=== PATIENT | female | born 1960 | race Caucasian/White ===

== ENCOUNTER 2019-07-03 00:27 | Inpatient (IN) | payer MEDICARE ==
[2019-07-03] MEDS ORDERED: ROCURONIUM 50 MG/5 ML INJ IV ONE (00:45)
[2019-07-03] MEDS ORDERED: ETOMIDATE 20 MG/10 ML INJ IV ONE (00:45)
[2019-07-03] MEDS ORDERED: SODIUM CHLORIDE 0.9% 500 ML 500 ML IV ONE (00:47)
[2019-07-03] MEDS ORDERED: MINERAL OIL/PETROLATUM, WHITE OPHTH OINT 3.5 GM OU PRN (00:53)
[2019-07-03] MEDS ORDERED: LIP THERAPY VASELINE TP PRN (00:53)
[2019-07-03] MEDS ORDERED: CEFEPIME/NS 1 GM/100 ML 1 GM/100 ML BAG IV ONE (00:53)
[2019-07-03] MEDS ORDERED: fentaNYL DRIP Premix 2,000 MCG/100 ML BAG IV SCH (01:00)
--- NOTE | 2019-07-03 01:20 | Emergency Department Report ---
HPI - General Chief Complaint: Dyspnea/Respdistress Time Seen by Provider: 07/03/19 00:35 - HPI HPI: 59-year-old female presents to the emergency department via EMS from her [facility] with the complaint of hypoxia and respiratory di stress. Patient was found to have a pulse ox in the 70s on room air. EMS placed her on a nonrebreather and the oxygen went up into the mid 80s. The patient was just recently admitted to this hospital from 06/24 - 06/30/19 and was previously here for sepsis secondary to pneumonia and UTI. She has a past medical history of seizure disorder, bipolar disorder, end-stage renal disease on hemodialysis, anemia of chronic kidney disease, CHF, hyperlipidemia. Patient is currently a poor historian secondary to her medical condition. Previous records show that the patient had been diagnosed with pneumonia at [facility] prior to this admission and therefore she was being treated for HCAP on vancomycin and cefepime. ED Past Medical Hx - Past Medical History Previous Medical History?: Yes Hx Hypertension: Yes Hx Congestive Heart Failure: Yes Hx Diabetes: Yes Hx Seizures: Yes Hx Dementia: Yes - Social History Smoking Status: Never Smoker - Medications Home Medications: Home Medications Medication Instructions Recorded Confirmed Last Taken Type Amlodipine Besylate [Norvasc] 10 mg PO DAILY 06/24/19 06/24/19 Unknown History AtorvaSTATin [Lipitor] 20 mg PO QHS 06/24/19 06/24/19 Unknown History Bumetanide 1 mg PO DAILY 06/24/19 06/24/19 Unknown History Cinacalcet HCl 30 mg PO DAILY 06/24/19 06/24/19 Unknown History Divalproex Sodium [Depakote 500 mg PO BID 06/24/19 06/24/19 Unknown History Sprinkle] Lispro Insulin [HumaLOG] 0 - 200 unit SQ ACHS 06/24/19 06/24/19 Unknown History Vit B Comp No.3/Folic/C/Biotin 1 each PO DAILY 06/24/19 06/24/19 Unknown History [Nephro-Umu Rx Tablet] carvediloL [Coreg] 25 mg PO BID 06/24/19 06/24/19 Unknown History hydrALAZINE [Apresoline TAB] 50 mg PO Q8HR 06/24/19 06/24/19 Unknown History ALBUTEROL NEB's [Proventil 0.083% 2.5 mg IH TIDRT #30 nebu 06/30/19 Unknown Rx NEBS] Lactulose [Cephulac] 20 gm PO Q8HR oral.liqd 06/30/19 Unknown Rx Sevelamer Carbonate [Renvela] 800 mg PO TIDWM tablet 06/30/19 Unknown Rx risperiDONE [RisperDAL] 0.5 mg PO BID tablet 06/30/19 Unknown Rx ED Review of Systems ROS: Stated complaint: ARNULFO Other details as noted in HPI Comment: Unobtainable due to pts medical conditions Physical Exam - Physical Exam Vital Signs: Vital Signs 07/03/19 01:04 Temperature 98.9 F Pulse Rate 79 Respiratory 22 Rate Blood Pressure 133/62 O2 Sat by Pulse 86 Oximetry Physical Exam: GENERAL: Patient is ill-appearing. HEENT: Normocephalic. Atraumatic. Patient has moist mucous membranes. EYES: Pupils equal and reactive to light bilaterally. NECK: Supple. Trachea is midline. CHEST/LUNGS: Decreased breath sounds. No dyspnea with shallow respirations. There is respiratory distress noted. HEART/CARDIOVASCULAR: Regular. There is no tachycardia. There is no murmur. ABDOMEN: Abdomen is soft, nontender. Patient has normal bowel sounds. There is no abdominal distention. SKIN:Skin is warm and dry. . NEURO: Patient appears lethargic. She is arousable but appears very weak. Nonverbal. Not following commands.. MUSCULOSKELETAL: There is no tenderness or deformity. There is no evidence of acute injury. ED Course Vital Signs 07/03/19 01:04 Temperature 98.9 F Pulse Rate 79 Respiratory 22 Rate Blood Pressure 133/62 O2 Sat by Pulse 86 Oximetry - ABG Interpretation Ph: 7.55 PCO2: 33 PO2: 65 Bicarbonate: 28 Interpretation: other (hypoxemia) - Intubation Time Out Performed: Yes Sedative: Etomidate Mg Given: 20 Mg Given: 50 Laryngoscope: other (Glidescope) Size: 3 ET Tube Size: 7.5 Tube Secured Depth (cm): 25 Tube Secured Location: lips Tube Placement Confirmation: visualized tube passing t, equal breath sounds bilat, confirmation by capnometr Intubation Complications: none ED Medical Decision Making - Lab Data Result diagrams: 07/03/19 01:00 07/03/19 01:00 - EKG Data -: EKG Interpreted by Me EKG shows normal: sinus rhythm, axis (left axis deviation), intervals, QRS complexes (left anterior fascicular block, LVH), ST-T waves Rate: normal - EKG Data When compared to previous EKG there are: no significant change Interpretation: unchanged when compared t (06/24/19) - Radiology Data Radiology results: report reviewed, image reviewed interpreted by me: The initial chest x-ray shows a white out of the left lung secondary to mainstem intubation.\ Repeat chest x-ray after the ET tube was pulled out shows some left basilar atelectasis. CT HEAD WITHOUT CONTRAST INDICATION: AMS. TECHNIQUE: All CT scans at this location are performed using CT dose reduction for ALARA by means of automated exposure control. COMPARISON: CT 06/24/2019 FINDINGS: HEMORRHAGE: None. EXTRA-AXIAL SPACES: Normal in size and morphology for the patient's age. VENTRICULAR SYSTEM: Normal in size and morphology for the patient's age. BRAIN PARENCHYMA: No acute findings. Periventricular white matter hypodensities bilaterally are stable. Thalamic and left giovanni hypodensities are stable. MIDLINE SHIFT OR HERNIATION: None. ORBITS: Normal as visualized. SOFT TISSUES OF HEAD: Normal. CALVARIUM: Normal. VISUALIZED PARANASAL SINUSES AND MASTOID AIR CELLS: Clear. ADDITIONAL FINDINGS: None. IMPRESSION: 1. No acute intracranial abnormality. - Medical Decision Making This patient presents from her half-way facility with the complaint of some shortness of breath and hypoxia. The patient had a pulse ox in the 70s upon EMS arrival. Even with a nonrebreather on the patient only had oxygen in the mid 80s. She is lethargic with shallow respirations and for this reason the patient was intubated. A CT scan of the head did not show any bleed, shift, mass, ischemia, or any other acute process. Chest x-ray did not show any signs of obvious pneumonia, pleural effusions or any other acute process. However the patient was treated empirically with vancomycin and cefepime secondary to her previous history of hospital acquired pneumonia. Patient's labs were mostly unremarkable except for her end-stage renal disease and the ABG showed some hypoxemia. The patient will be admitted to the hospital for further evaluation and treatment was accepted for admission by the hospitalist, Dr. Hanks. - Differential Diagnosis sepsis, dysrhythmia, pneumonia, CHF Critical Care Time: Yes Critical care time in (mins) excluding proc time.: 35 Critical care attestation.: If time is entered above; I have spent that time in minutes in the direct care of this critically ill patient, excluding procedure time. Critical care time was spent on this patient and doing her initial evaluation, multiple re- evaluations, ordering and interpretation of labs and imaging, empiric antibiotic treatment, discussion with the patient's daughter. This does not include the time spent doing the intubation. Critical Care Time: 35 minutes ED Disposition Clinical Impression: Acute respiratory failure with hypoxia, ESRD (end stage renal disease) on dialysis, Acute metabolic encephalopathy Disposition: OP ADMIT IP TO THIS HOSP Is pt being admited?: Yes Condition: Serious Time of Disposition: 02:52
[2019-07-03 01:21] LABS: Basophils # (Auto) 0.1 K/mm3 (0.0-0.1); Basophils % (Auto) 0.8 % (0.0-1.8); Eosinophils % (Auto) 0.1 % (0.0-4.3); Hematocrit 40.9 % (30.3-42.9); Hemoglobin 13.4 gm/dl (10.1-14.3); Lymphocytes # (Auto) 2.1 K/mm3 (1.2-5.4); Lymphocytes % (Auto) 11.7 % (13.4-35.0); Mean Corpuscular HGB Conc 33 % (30-34); Mean Corpuscular Volume 86 fl (79-97); Monocytes % (Auto) 5.3 % (0.0-7.3); Platelet Count 228 K/mm3 (140-440); Red Blood Count 4.76 M/mm3 (3.65-5.03); Red Cell Distribution Width 17.8 % (13.2-15.2)
[2019-07-03] MEDS ORDERED: VANCOMYCIN/NS 1 GM/250 ML 1 GM/250 ML BAG IV ONE (01:30)
[2019-07-03 01:31] LABS: Mucus,Urine FEW /HPF
[2019-07-03 01:32] LABS: Bilirubin,Urine NEG (Negative); Blood,Urine NEG (Negative); Color,Urine Yellow (Yellow); Urobilinogen,Urine < 2.0 mg/dL (<2.0)
[2019-07-03 01:37] LABS: Albumin 2.5 g/dL (3.9-5); Calcium 10.5 mg/dL (8.4-10.2)
--- NOTE | 2019-07-03 01:38 | XRay Report ---
CHEST 1 VIEW INDICATION: SOB. COMPARISON: 06/24/2019 FINDINGS: Support devices: Endotracheal tube tip is in the proximal right mainstem bronchus. Esophagogastric tu be is in the stomach. Heart: Stable. Lungs/Pleura: Volume loss and near diffuse opacification of the left hemithorax is likely due to left lung collapse/atelectasis. Mild streaky opacities in the right lung are likely atelectatic. No pneum othorax. IMPRESSION: 1. Endotracheal tube tip in the right mainstem bronchus with left lung collapse. Endotracheal tube sh ould be pulled back approximately 5 cm. COMMUNICATION: Time of Communication: 12:33 AM central Licensed Practitioner Receiving Report: Dr. Mabry Signer Name: Ovi Saini MD Signed: 07/03/2019 1:34 AM Workstation Name: [id number]
[2019-07-03 01:41] LABS: Protein,Urine >500 mg/dL (Negative)
[2019-07-03] MEDS ORDERED: MIDAZOLAM 2 MG/2 ML INJ IV PRN (01:50)
[2019-07-03 01:52] LABS: ABG Base Excess 6.7 mmol/L (-2.0-3.0); ABG HCO3 28.9 mmol/L (20.0-26.0); ABG Methemoglobin 0.4 % (0.0-1.5); ABG Oxygen Saturation 95.7 % (95.0-99.0); ABG PCO2 33.4 mm Hg; ABG PH 7.555 pH Units (7.350-7.450); ABG PO2 65.4 mm Hg (80.0-90.0)
[2019-07-03] MEDS ORDERED: MIDAZOLAM 100 MG in SODIUM CHLORIDE 0.9% 80 ML IV SCH (02:15)
--- NOTE | 2019-07-03 02:23 | XRay Report ---
CHEST 1 VIEW 1:46 AM INDICATION: ETT placement. COMPARISON: Earlier the same day FINDINGS: Support devices: Endotracheal tube has been pulled back and is in satisfactory position. Heart: Stable. Lungs/Pleura: Left lung collapse has almost completely resolved. Mild residual atelectatic changes ar e again seen in the right lung. No pneumothorax. IMPRESSION: 1. Resolution of left lung collapse after endotracheal tube repositioning. Signer Name: Ovi Saini MD Signed: 07/03/2019 2:19 AM Workstation Name: [email or web address]
--- NOTE | 2019-07-03 03:42 | History and Physical Report ---
History of Present Illness Date of examination: 07/03/19 Date of admission: 07/03/19 02:52 Chief complaint: " Not breathing properly" History of present illness: Patient is 59-year-old female long term facility resident in [place] with a past medical history of ESRD on HD (MWF), insulin-dependent diabetes, HTN, CHF, seizure, bipolar, depression, and toxic metabolic encephalopathy who presents to ER for evaluation. Patient history taken from daughter who was at bedside during exam. As per staff, the patient was found to have increased work of breathing and decreased responsiveness this evening. Patient was found to have a pulse oximetry in the 70s and was placed on supplemental oxygen. EMS was notified and upon arrival the patient was found to be in distress and was subsequently placed on a non-rebreather with oxygen saturations increasing to the mid 80s and transported to [facility] for further care and evaluation. Patient was found to have acute hypoxemic respiratory failure and was unable to protect her airway. Patient was intubated and placed on ventilatory support. Patient was admitted to the ICU for medical stabilization due to high risk for cardiopulmonary decompensation. Prior admission 06/24 - 06/30/19 reviewed and shows patient was previously admitted for sepsis secondary to pneumonia and UTI. Past History Past Medical History: other (As noted in HPI, Bipolar, depression, early dementia.) Past Surgical History: Other (Tubal ligation, fistula left arm) Social history: other (Resident of [place] [facility]) Medications and Allergies Allergies Allergy/AdvReac Type Severity Reaction Status Date / Time No Known Allergies Allergy Unverified 06/24/19 20:08 Home Medications Medication Instructions Recorded Confirmed Last Taken Type Amlodipine Besylate [Norvasc] 10 mg PO DAILY 06/24/19 06/24/19 Unknown History AtorvaSTATin [Lipitor] 20 mg PO QHS 06/24/19 06/24/19 Unknown History Bumetanide 1 mg PO DAILY 06/24/19 06/24/19 Unknown History Cinacalcet HCl 30 mg PO DAILY 06/24/19 06/24/19 Unknown History Divalproex Sodium [Depakote 500 mg PO BID 06/24/19 06/24/19 Unknown History Sprinkle] Lispro Insulin [HumaLOG] 0 - 200 unit SQ ACHS 06/24/19 06/24/19 Unknown History Vit B Comp No.3/Folic/C/Biotin 1 each PO DAILY 06/24/19 06/24/19 Unknown History [Nephro-Umu Rx Tablet] carvediloL [Coreg] 25 mg PO BID 06/24/19 06/24/19 Unknown History hydrALAZINE [Apresoline TAB] 50 mg PO Q8HR 06/24/19 06/24/19 Unknown History ALBUTEROL NEB's [Proventil 0.083% 2.5 mg IH TIDRT #30 nebu 06/30/19 Unknown Rx NEBS] Lactulose [Cephulac] 20 gm PO Q8HR oral.liqd 06/30/19 Unknown Rx Sevelamer Carbonate [Renvela] 800 mg PO TIDWM tablet 06/30/19 Unknown Rx risperiDONE [RisperDAL] 0.5 mg PO BID tablet 06/30/19 Unknown Rx Active Meds: Active Medications Hydrophilic Ointment (Vaseline Lip Therapy) 1 applic TP Q2HR PRN PRN Reason: Dry Lips Fentanyl Citrate (Fentanyl Drip Premix) 2,000 mcg in 100 mls @ 2.608 mls/hr IV TITR YANG; Protocol Last Admin: 07/03/19 02:25 Dose: 1 mcg/kg/hr, 2.608 mls/hr Documented by: Midazolam HCl 100 mg/ Sodium (Chloride) 100 mls @ 2 mls/hr IV TITR YANG; Protocol Last Admin: 07/03/19 02:26 Dose: 2 mg/hr, 2 mls/hr Documented by: Midazolam HCl (Versed) 2 mg IV Q10MIN PRN PRN Reason: Sedation Multi-Ingred Cream/Lotion/Oil/Oint (Artificial Tears Ophth Oint) 1 applic OU Q4HR PRN PRN Reason: Dry Eye(s) Review of Systems ROS unobtainable: due to mental status Exam - Physical Exam Narrative exam: General appearance: Present: severe distress - EENT Eyes: Present: miosis ENT: dentition normal - Neck Neck: Present: supple, normal ROM - Respiratory Respiratory effort: labored, accessory muscle use Respiratory: bilateral: diminished, - Cardiovascular Heart Sounds: Present: S1 & S2. Absent: rub, click - Extremities Extremities: pulses symmetrical, No edema Extremity abnormal: edema Peripheral Pulses: within normal limits - Abdominal General gastrointestinal: Present: soft, non-distended, normal bowel sounds genitourinary: Present: normal - Integumentary Integumentary: Present: dry, clammy, decreased turgor - Musculoskeletal Musculoskeletal: generalized weakness - Psychiatric Psychiatric: no appropriate mood/affect, no intact judgment & insight, no memory intact - Neurologic Neurologic: no gait normal - Constitutional Vitals: Temp Pulse Resp BP Pulse Ox 99.7 F H 80 18 144/67 100 07/03/19 02:46 07/03/19 02:46 07/03/19 02:45 07/03/19 02:45 07/03/19 02:45 DANIELLE score - Danielle Score Age > 65: (0) No Aspirin use within the Past 7 Days: (0) No 3 or more CAD Risk Factors: (1) Yes 2 or more Angina events in past 24 hrs: (0) No Known CAD with more than 50% Stenosis: (0) No Elevated Cardiac Markers: (1) Yes ST Deviation Greater than 0.5mm: (0) No DANIELLE Score: 2 Results - Labs CBC & Chem 7: 07/03/19 01:00 07/03/19 01:00 Labs: Laboratory Last Values WBC 17.9 K/mm3 (4.5-11.0) H 07/03/19 01:00 RBC 4.76 M/mm3 (3.65-5.03) 07/03/19 01:00 Hgb 13.4 gm/dl (10.1-14.3) 07/03/19 01:00 Hct 40.9 % (30.3-42.9) 07/03/19 01:00 MCV 86 fl (79-97) 07/03/19 01:00 MCH 28 pg (28-32) 07/03/19 01:00 MCHC 33 % (30-34) 07/03/19 01:00 RDW 17.8 % (13.2-15.2) H 07/03/19 01:00 Plt Count 228 K/mm3 (140-440) 07/03/19 01:00 Lymph % (Auto) 11.7 % (13.4-35.0) L 07/03/19 01:00 Bowman % (Auto) 5.3 % (0.0-7.3) 07/03/19 01:00 Eos % (Auto) 0.1 % (0.0-4.3) 07/03/19 01:00 Baso % (Auto) 0.8 % (0.0-1.8) 07/03/19 01:00 Lymph # 2.1 K/mm3 (1.2-5.4) 07/03/19 01:00 Bowman # 1.0 K/mm3 (0.0-0.8) H 07/03/19 01:00 Eos # 0.0 K/mm3 (0.0-0.4) 07/03/19 01:00 Baso # 0.1 K/mm3 (0.0-0.1) 07/03/19 01:00 Seg Neutrophils % 82.1 % (40.0-70.0) H 07/03/19 01:00 Seg Neutrophils # 14.7 K/mm3 (1.8-7.7) H 07/03/19 01:00 ABG pH 7.555 pH Units (7.350-7.450) H 07/03/19 01:35 ABG pCO2 33.4 mm Hg 07/03/19 01:35 ABG pO2 65.4 mm Hg (80.0-90.0) L 07/03/19 01:35 ABG HCO3 28.9 mmol/L (20.0-26.0) H 07/03/19 01:35 ABG O2 Saturation 95.7 % (95.0-99.0) 07/03/19 01:35 ABG O2 Content 18.8 (0.0-44) 07/03/19 01:35 ABG Base Excess 6.7 mmol/L (-2.0-3.0) H 07/03/19 01:35 ABG Hemoglobin 14.3 gm/dl (12.0-16.0) 07/03/19 01:35 ABG Carboxyhemoglobin 1.4 % (0.0-5.0) 07/03/19 01:35 ABG Methemoglobin 0.4 % (0.0-1.5) 07/03/19 01:35 Oxyhemoglobin 94.0 % (95.0-99.0) L 07/03/19 01:35 FiO2 100 % 07/03/19 01:35 Sodium 140 mmol/L (137-145) 07/03/19 01:00 Potassium 4.1 mmol/L (3.6-5.0) D 07/03/19 01:00 Chloride 92.9 mmol/L (98-107) L 07/03/19 01:00 Carbon Dioxide 28 mmol/L (22-30) 07/03/19 01:00 Anion Gap 23 mmol/L 07/03/19 01:00 BUN 45 mg/dL (7-17) H 07/03/19 01:00 Creatinine 5.3 mg/dL (0.7-1.2) H 07/03/19 01:00 Estimated GFR 8 ml/min 07/03/19 01:00 BUN/Creatinine Ratio 8 % 07/03/19 01:00 Glucose 229 mg/dL (65-100) H 07/03/19 01:00 Lactic Acid 1.20 mmol/L (0.7-2.0) 07/03/19 01:00 Calcium 10.5 mg/dL (8.4-10.2) H 07/03/19 01:00 Total Bilirubin 0.30 mg/dL (0.1-1.2) 07/03/19 01:00 AST 22 units/L (5-40) 07/03/19 01:00 ALT 9 units/L (7-56) 07/03/19 01:00 Alkaline Phosphatase 101 units/L (35-129) 07/03/19 01:00 Ammonia 35.0 umol/L (25-60) 07/03/19 01:58 NT-Pro-B Natriuret Pep > 72859 pg/mL (0-900) H 07/03/19 01:00 Total Protein 7.0 g/dL (6.3-8.2) 07/03/19 01:00 Albumin 2.5 g/dL (3.9-5) L 07/03/19 01:00 Albumin/Globulin Ratio 0.6 % 07/03/19 01:00 TSH 2.600 mlU/mL (0.270-4.200) 07/03/19 01:00 Urine Color Yellow (Yellow) 07/03/19 Unknown Urine Turbidity Clear (Clear) 07/03/19 Unknown Urine pH 6.0 (5.0-7.0) 07/03/19 Unknown Ur Specific [place] 1.012 (1.003-1.030) 07/03/19 Unknown Urine Protein >500 mg/dL (Negative) 07/03/19 Unknown Urine Glucose (UA) >=500 mg/dL (Negative) 07/03/19 Unknown Urine Ketones Neg mg/dL (Negative) 07/03/19 Unknown Urine Blood Neg (Negative) 07/03/19 Unknown Urine Nitrite Neg (Negative) 07/03/19 Unknown Ur Reducing Substances Not Reportable 07/03/19 Unknown Urine Bilirubin Neg (Negative) 07/03/19 Unknown Urine Ictotest Not Reportable 07/03/19 Unknown Urine Urobilinogen < 2.0 mg/dL (<2.0) 07/03/19 Unknown Ur Leukocyte Esterase Neg (Negative) 07/03/19 Unknown Urine WBC (Auto) 1.0 /HPF (0.0-6.0) 07/03/19 Unknown Urine RBC (Auto) 2.0 /HPF (0.0-6.0) 07/03/19 Unknown U Epithel Cells (Auto) < 1.0 /HPF (0-13.0) 07/03/19 Unknown Urine Mucus Few /HPF 07/03/19 Unknown - Imaging and Cardiology EKG: report reviewed Chest x-ray: report reviewed Assessment and Plan Assessment and plan: Acute hypoxic respiratory failure -Patient intubated placed on ventilatory support -Continue ventilator, pulmonary input appreciated -ABG, daily -pulse oximetry,Monitor saturations -wean vent as tolerated, -No infiltrate seen on today's chest x-ray. -Initial ABG 7.55/33/65/28 Acute encephalopathy -CT head ordered -Blood cultures pending -Neuro checks -Continue supportive care SIRS -Suspicion for Sepsis -CXR unremarkable -Leukocytosis 17.9 -Received 1 dose of IV cefepime in ED -Will continue empiric treatment - UC pending -Blood cultures pending -Will continue to workup source of infection -Follow up on labs -Continue supportive care -AMS ESRD on HD -M// -Avoid nephrotoxic agents -Renal dose all meds -Nephrology consulted Congestive heart Failure -BNP >30298 -Monitor input and output. -IV diuretics, supportive care -Cardiology consult -Continue HF meds Hypertensive urgency -BP on admission 201/94 -Hx Hypertension -Continue to monitor BP -Resume home antihypertensive meds to optimize BP -IV prn antihypertensive when necessary Insulin-dependent diabetes -POC BG monitoring -SSI coverage prn Hx Seizure -Continue anticonvulsant meds DVT PPX -On Heparin VTE prophylaxis?: Chemical Plan of care discussed with patient/family: Yes
[2019-07-03] MEDS ORDERED: DEXTROSE 50% IN WATER (25GM) 50 ML SYRINGE IV PRN (04:34)
[2019-07-03 04:44] LABS: ABG Base Excess 4.5 mmol/L (-2.0-3.0); ABG HCO3 27.9 mmol/L (20.0-26.0); ABG Methemoglobin 0.5 % (0.0-1.5); ABG Oxygen Saturation 98.9 % (95.0-99.0); ABG PCO2 37.5 mm Hg; ABG PH 7.489 pH Units (7.350-7.450); ABG PO2 149.9 mm Hg (80.0-90.0)
--- NOTE | 2019-07-03 05:00 | Cat Scan Report ---
CT HEAD WITHOUT CONTRAST INDICATION: AMS. TECHNIQUE: All CT scans at this location are performed using CT dose reduction for ALARA by means of automated e xposure control. COMPARISON: CT 06/24/2019 FINDINGS: HEMORRHAGE: None. EXTRA-AXIAL SPACES: Normal in size and morphology for the patient's age. VENTRICULAR SYSTEM: Normal in size and morphology for the patient's age. BRAIN PARENCHYMA: No acute findings. Periventricular white matter hypodensities bilaterally are stabl e. Thalamic and left giovanni hypodensities are stable. MIDLINE SHIFT OR HERNIATION: None. ORBITS: Normal as visualized. SOFT TISSUES OF HEAD: Normal. CALVARIUM: Normal. VISUALIZED PARANASAL SINUSES AND MASTOID AIR CELLS: Clear. ADDITIONAL FINDINGS: None. IMPRESSION: 1. No acute intracranial abnormality. Signer Name: Ovi Saini MD Signed: 07/03/2019 4:55 AM Workstation Name: [id number]
[2019-07-03] MEDS ORDERED: FUROSEMIDE 40 MG/4 ML INJ IV SCH (06:00)
[2019-07-03] MEDS: INSULIN LISPRO 100 UNIT/ML SUB-Q SCH ×3 (06:23→18:14)
[2019-07-03] MEDS ORDERED: VANCOMYCIN PHARMACY TO DOSE IV SCH (07:00)
--- NOTE | 2019-07-03 08:28 | Event Note ---
Date: 07/03/19 I called Patients daughter. She does not know name of [facility] but Patient goes to [facility]. Notified Dr Oconnor who states she is their Patient. Will transfer Renal care to his service
[2019-07-03] MEDS ORDERED: FAMOTIDINE 20 MG/2 ML INJ IV ONE (09:26)
[2019-07-03] MEDS ORDERED: HEPARIN 5,000 UNIT/1 ML VIAL ONE (09:26)
[2019-07-03] MEDS: FAMOTIDINE 20 MG/2 ML INJ IV SCH (09:31)
[2019-07-03] MEDS: CEFEPIME/NS 1 GM/100 ML 1 GM/100 ML BAG IV SCH (09:31)
[2019-07-03] MEDS: HEPARIN 5,000 UNIT/1 ML VIAL SUB-Q SCH ×2 (09:31→23:59)
--- NOTE | 2019-07-03 09:43 | Consultation ---
History of Present Illness Consult date: 07/03/19 Consult reason: congestive heart failure History of present illness: This is a 59-year old woman who [facility] and has multiple m edical problems including end stage renal disease on hemodialysis. Of note, patient was recently admitted to this hospital with AMS and sepsis. Patient was sent to the emergency department and admitted with hypoxic respiratory failure. She is currently intubated on the ventilator. A cardiac consultation has been requested for CHF evaluation. A chest x-ray reports no interstitial edema. 12-lead ECG is sinus rhythm, LVH with repolarization abnormality. Recent echocardiogram showed a normal left ventricular systolic function, ejection fraction 50-55%. Past History Past Medical History: other (As noted in HPI, Bipolar, depression, early dementia.) Past Surgical History: Other (Tubal ligation, fistula left arm) Social history: other (Resident of [facility]) Medications and Allergies Allergies Allergy/AdvReac Type Severity Reaction Status Date / Time No Known Allergies Allergy Verified 07/03/19 10:58 Home Medications Medication Instructions Recorded Confirmed Last Taken Type Amlodipine Besylate [Norvasc] 10 mg PO DAILY 06/24/19 06/24/19 Unknown History AtorvaSTATin [Lipitor] 20 mg PO QHS 06/24/19 06/24/19 Unknown History Bumetanide 1 mg PO DAILY 06/24/19 06/24/19 Unknown History Cinacalcet HCl 30 mg PO DAILY 06/24/19 06/24/19 Unknown History Divalproex Sodium [Depakote 500 mg PO BID 06/24/19 06/24/19 Unknown History Sprinkle] Lispro Insulin [HumaLOG] 0 - 200 unit SQ ACHS 06/24/19 06/24/19 Unknown History Vit B Comp No.3/Folic/C/Biotin 1 each PO DAILY 06/24/19 06/24/19 Unknown History [Nephro-Umu Rx Tablet] carvediloL [Coreg] 25 mg PO BID 06/24/19 06/24/19 Unknown History hydrALAZINE [Apresoline TAB] 50 mg PO Q8HR 06/24/19 06/24/19 Unknown History ALBUTEROL NEB's [Proventil 0.083% 2.5 mg IH TIDRT #30 nebu 06/30/19 Unknown Rx NEBS] Lactulose [Cephulac] 20 gm PO Q8HR oral.dewayneqd 06/30/19 Unknown Rx Sevelamer Carbonate [Renvela] 800 mg PO TIDWM tablet 06/30/19 Unknown Rx risperiDONE [RisperDAL] 0.5 mg PO BID tablet 06/30/19 Unknown Rx Active Meds: Active Medications Dextrose (D50w (25gm) Syringe) 0 ml IV Q30MIN PRN; Protocol PRN Reason: Hypoglycemia Famotidine (Pepcid) 20 mg IV DAILY [facility] Last Admin: 07/03/19 09:31 Dose: 20 mg Documented by: Furosemide (Lasix) 40 mg IV BID@0600,1800 [facility] Last Admin: 07/03/19 06:23 Dose: 40 mg Documented by: Heparin Sodium (Porcine) (Heparin) 5,000 unit SUB-Q Q12HR YANG Last Admin: 07/03/19 09:31 Dose: 5,000 unit Documented by: Hydrophilic Ointment (Vaseline Lip Therapy) 1 applic TP Q2HR PRN PRN Reason: Dry Lips Fentanyl Citrate (Fentanyl Drip Premix) 2,000 mcg in 100 mls @ 2.608 mls/hr IV TITR YANG; Protocol Last Admin: 07/03/19 02:25 Dose: 1 mcg/kg/hr, 2.608 mls/hr Documented by: Midazolam HCl 100 mg/ Sodium (Chloride) 100 mls @ 2 mls/hr IV TITR YANG; Protocol Last Admin: 07/03/19 02:26 Dose: 2 mg/hr, 2 mls/hr Documented by: Cefepime HCl (Cefepime/Ns 1 Gm/100 Ml) 1 gm in 100 mls @ 200 mls/hr IV Q24HR YANG; Protocol Last Admin: 07/03/19 09:31 Dose: 200 mls/hr Documented by: Insulin Human Lispro (Humalog) 0 unit SUB-Q Q6HR YANG; Protocol Last Admin: 07/03/19 06:23 Dose: Not Given Documented by: Midazolam HCl (Versed) 2 mg IV Q10MIN PRN PRN Reason: Sedation Multi-Ingred Cream/Lotion/Oil/Oint (Artificial Tears Ophth Oint) 1 applic OU Q4HR PRN PRN Reason: Dry Eye(s) Sodium Chloride (Sodium Chloride Flush Syringe 10 Ml) 10 ml IV BID [facility] Last Admin: 07/03/19 09:31 Dose: 10 ml Documented by: Sodium Chloride (Sodium Chloride Flush Syringe 10 Ml) 10 ml IV PRN PRN PRN Reason: LINE FLUSH Physical Examination Vital Signs Pulse Resp Pulse Ox 81 14 87 07/03/19 00:32 07/03/19 00:32 07/03/19 00:32 General appearance: other (intubated on the vent) Cardiac: Positive: Reg Rate and Rhythm Results 07/03/19 01:00 07/03/19 01:00 Cardiac Enzymes 07/03/19 Range/Units 01:00 AST 22 (5-40) units/L CBC 07/03/19 Range/Units 01:00 WBC 17.9 H (4.5-11.0) K/mm3 RBC 4.76 (3.65-5.03) M/mm3 Hgb 13.4 (10.1-14.3) gm/dl Hct 40.9 (30.3-42.9) % Plt Count 228 (140-440) K/mm3 Lymph # 2.1 (1.2-5.4) K/mm3 [place] # 1.0 H (0.0-0.8) K/mm3 Eos # 0.0 (0.0-0.4) K/mm3 Baso # 0.1 (0.0-0.1) K/mm3 Comprehensive Metabolic Panel 07/03/19 Range/Units 01:00 Sodium 140 (137-145) mmol/L Potassium 4.1 D (3.6-5.0) mmol/L Chloride 92.9 L (98-107) mmol/L Carbon Dioxide 28 (22-30) mmol/L BUN 45 H (7-17) mg/dL Creatinine 5.3 H (0.7-1.2) mg/dL Glucose 229 H (65-100) mg/dL Calcium 10.5 H (8.4-10.2) mg/dL AST 22 (5-40) units/L ALT 9 (7-56) units/L Alkaline Phosphatase 101 (35-129) units/L Total Protein 7.0 (6.3-8.2) g/dL Albumin 2.5 L (3.9-5) g/dL Assessment and Plan Hypoxic respiratory failure ESRD on HD Altered mental status Hx of chronically elevated troponin dating back to 04/2018 at [facility] MPI performed November 2018 revealed no ischemia preserved LVEF by echo 06/25/2019 Hypertension Diabetes Hx of seizure disorder
--- NOTE | 2019-07-03 11:42 | Consultation ---
History of Present Illness - Reason for Consult Consult date: 07/03/19 end stage renal disease - History of Present Illness patient is 59 year old female with ESRD on HD every MWF she was transferred from SNF for worsening AMS and shortness of breath, on my exam she was intubated and sated, no family at bedside, history obtained from chart, in the Ed was found to have acute hypoxemic respiratory failure and was unable to protect her airway. Patient was intubated and placed on ventilatory support. she was also found to have leukocytosis and was started on IV abx, renal consult was requested for HD management Past History Past Medical History: other (As noted in HPI, Bipolar, depression, early dementia.) Past Surgical History: Other (Tubal ligation, fistula left arm) Social history: other (Resident of [facility]) Medications and Allergies Allergies Allergy/AdvReac Type Severity Reaction Status Date / Time No Known Allergies Allergy Verified 07/03/19 10:58 Home Medications Medication Instructions Recorded Confirmed Last Taken Type Amlodipine Besylate [Norvasc] 10 mg PO DAILY 06/24/19 06/24/19 Unknown History AtorvaSTATin [Lipitor] 20 mg PO QHS 06/24/19 06/24/19 Unknown History Bumetanide 1 mg PO DAILY 06/24/19 06/24/19 Unknown History Cinacalcet HCl 30 mg PO DAILY 06/24/19 06/24/19 Unknown History Divalproex Sodium [Depakote 500 mg PO BID 06/24/19 06/24/19 Unknown History Sprinkle] Lispro Insulin [HumaLOG] 0 - 200 unit SQ ACHS 06/24/19 06/24/19 Unknown History Vit B Comp No.3/Folic/C/Biotin 1 each PO DAILY 06/24/19 06/24/19 Unknown History [Nephro-Umu Rx Tablet] carvediloL [Coreg] 25 mg PO BID 06/24/19 06/24/19 Unknown History hydrALAZINE [Apresoline TAB] 50 mg PO Q8HR 06/24/19 06/24/19 Unknown History ALBUTEROL NEB's [Proventil 0.083% 2.5 mg IH TIDRT #30 nebu 06/30/19 Unknown Rx NEBS] Lactulose [Cephulac] 20 gm PO Q8HR oral.liqd 06/30/19 Unknown Rx Sevelamer Carbonate [Renvela] 800 mg PO TIDWM tablet 06/30/19 Unknown Rx risperiDONE [RisperDAL] 0.5 mg PO BID tablet 06/30/19 Unknown Rx Active Meds: Active Medications Dextrose (D50w (25gm) Syringe) 0 ml IV Q30MIN PRN; Protocol PRN Reason: Hypoglycemia Famotidine (Pepcid) 20 mg IV DAILY [facility] Last Admin: 07/03/19 09:31 Dose: 20 mg Documented by: Furosemide (Lasix) 40 mg IV BID@0600,1800 YANG Last Admin: 07/03/19 06:23 Dose: 40 mg Documented by: Heparin Sodium (Porcine) (Heparin) 5,000 unit SUB-Q Q12HR YANG Last Admin: 07/03/19 09:31 Dose: 5,000 unit Documented by: Hydrophilic Ointment (Vaseline Lip Therapy) 1 applic TP Q2HR PRN PRN Reason: Dry Lips Fentanyl Citrate (Fentanyl Drip Premix) 2,000 mcg in 100 mls @ 2.608 mls/hr IV TITR YANG; Protocol Last Admin: 07/03/19 02:25 Dose: 1 mcg/kg/hr, 2.608 mls/hr Documented by: Midazolam HCl 100 mg/ Sodium (Chloride) 100 mls @ 2 mls/hr IV TITR YANG; Protocol Last Admin: 07/03/19 02:26 Dose: 2 mg/hr, 2 mls/hr Documented by: Cefepime HCl (Cefepime/Ns 1 Gm/100 Ml) 1 gm in 100 mls @ 200 mls/hr IV Q24HR YANG; Protocol Last Admin: 07/03/19 09:31 Dose: 200 mls/hr Documented by: Insulin Human Lispro (Humalog) 0 unit SUB-Q Q6HR YANG; Protocol Last Admin: 07/03/19 06:23 Dose: Not Given Documented by: Midazolam HCl (Versed) 2 mg IV Q10MIN PRN PRN Reason: Sedation Multi-Ingred Cream/Lotion/Oil/Oint (Artificial Tears Ophth Oint) 1 applic OU Q4HR PRN PRN Reason: Dry Eye(s) Sodium Chloride (Sodium Chloride Flush Syringe 10 Ml) 10 ml IV BID [facility] Last Admin: 07/03/19 09:31 Dose: 10 ml Documented by: Sodium Chloride (Sodium Chloride Flush Syringe 10 Ml) 10 ml IV PRN PRN PRN Reason: LINE FLUSH Review of Systems ROS unobtainable: due to endotracheal tube Exam - Vital Signs Vital signs: Vital Signs Pulse Resp Pulse Ox 81 14 87 07/03/19 00:32 07/03/19 00:32 07/03/19 00:32 - General Appearance General appearance: well-developed, sedated on ventilator, intubated EENT: ATNC, PERRL, mucous membranes dry Neck: Present: neck supple Respiratory: Decreased Breath Sounds Heart: regular, tachycardia Gastrointestinal: Present: normoactive bowel sounds. Absent: tenderness, distended Neurologic: other (sedated) Musculoskeletal: Present: other (trace pitting edema in BLE) Psychiatric: other (intubated) Results - Lab Results 07/03/19 01:00 07/03/19 01:00 Most recent lab results ABG pH 7.489 pH Units (7.350-7.450) H 07/03/19 04:30 ABG pCO2 37.5 mm Hg 07/03/19 04:30 ABG pO2 149.9 mm Hg (80.0-90.0) H 07/03/19 04:30 ABG HCO3 27.9 mmol/L (20.0-26.0) H 07/03/19 04:30 ABG O2 Saturation 98.9 % (95.0-99.0) 07/03/19 04:30 Calcium 10.5 mg/dL (8.4-10.2) H 07/03/19 01:00 Assessment and Plan acute hypxic respiratory failure on mehcanical ventilation metabolic encephalopathy ESRD on HD HTN severe sepsis CHF - HD ordered today for clearance and volume removal - HD ordered again for tomorrow - will assess dialysis needs daily - strict I&O - daily weight - renally dose meds - renal diet Keith Monroy MD [phone]
[2019-07-03] MEDS ORDERED: INSULIN LISPRO 100 UNIT/ML SUB-Q ONE ×2 (12:10→18:19)
--- NOTE | 2019-07-03 12:37 | Consultation ---
History of Present Illness Consult date: 07/03/19 Requesting physician: TAVO GUTIERRES History of present illness: Patient is 59-year-old female residential facility resident in [place] with a past medical history of ESRD on HD (MWF), insulin-dependent diabetes, HTN, CHF, seizure, bipolar, depression, and toxic metabolic encephalopathy who presents to ER for evaluation. Patient history taken from daughter who was at bedside during exam. As per staff, the patient was found to have increased work of breathing and decreased responsiveness this evening. Patient was found to have a pulse oximetry in the 70s and was placed on supplemental oxygen. EMS was notified and upon arrival the patient was found to be in distress and was subsequently placed on a non-rebreather with oxygen saturations increasing to the mid 80s and transported to [facility] for further care and evaluation. Patient was found to have acute hypoxemic respiratory failure and was unable to protect her airway. Patient was intubated and placed on ventilatory support. Patient was admitted to the ICU for medical stabilization due to high risk for cardiopulmonary decompensation. Prior admission 06/24 - 06/30/19 reviewed and shows patient was previously admitted for sepsis secondary to pneumonia and UTI. I have been consulted for critical care management. Thank you for consult Patient seen and examined. Vitals, labs, medications, chart and imaging reviewed. Currently unresponsive, about to have HD initiated Past History Past Medical History: other (As noted in HPI, Bipolar, depression, early dementia.) Past Surgical History: Other (Tubal ligation, fistula left arm) Social history: other (Resident of [facility]) Medications and Allergies Allergies Allergy/AdvReac Type Severity Reaction Status Date / Time No Known Allergies Allergy Verified 07/03/19 10:58 Home Medications Medication Instructions Recorded Confirmed Last Taken Type Amlodipine Besylate [Norvasc] 10 mg PO DAILY 06/24/19 07/04/19 Unknown History AtorvaSTATin [Lipitor] 20 mg PO QHS 06/24/19 07/04/19 Unknown History Bumetanide 1 mg PO DAILY 06/24/19 07/04/19 Unknown History Cinacalcet HCl 30 mg PO DAILY 06/24/19 07/04/19 Unknown History Divalproex Sodium [Depakote 500 mg PO BID 06/24/19 07/04/19 Unknown History Sprinkle] Lispro Insulin [HumaLOG] 0 - 200 unit SQ ACHS 06/24/19 07/04/19 Unknown History Vit B Comp No.3/Folic/C/Biotin 1 each PO DAILY 06/24/19 07/04/19 Unknown History [Nephro-Umu Rx Tablet] carvediloL [Coreg] 25 mg PO BID 06/24/19 07/04/19 Unknown History hydrALAZINE [Apresoline TAB] 50 mg PO Q8HR 06/24/19 07/04/19 Unknown History ALBUTEROL NEB's [Proventil 0.083% 2.5 mg IH TIDRT #30 nebu 06/30/19 07/04/19 Unknown Rx NEBS] Lactulose [Cephulac] 20 gm PO Q8HR oral.liqd 06/30/19 07/04/19 Unknown Rx Sevelamer Carbonate [Renvela] 800 mg PO TIDWM tablet 06/30/19 07/04/19 Unknown Rx risperiDONE [RisperDAL] 0.5 mg PO BID tablet 06/30/19 07/04/19 Unknown Rx Active Meds: Active Medications Dextrose (D50w (25gm) Syringe) 0 ml IV Q30MIN PRN; Protocol PRN Reason: Hypoglycemia Famotidine (Pepcid) 20 mg IV DAILY [facility] Last Admin: 07/03/19 09:31 Dose: 20 mg Documented by: Furosemide (Lasix) 40 mg IV BID@0600,1800 [facility] Last Admin: 07/03/19 06:23 Dose: 40 mg Documented by: Heparin Sodium (Porcine) (Heparin) 5,000 unit SUB-Q Q12HR YANG Last Admin: 07/03/19 09:31 Dose: 5,000 unit Documented by: Hydrophilic Ointment (Vaseline Lip Therapy) 1 applic TP Q2HR PRN PRN Reason: Dry Lips Fentanyl Citrate (Fentanyl Drip Premix) 2,000 mcg in 100 mls @ 2.608 mls/hr IV TITR YANG; Protocol Last Admin: 07/03/19 02:25 Dose: 1 mcg/kg/hr, 2.608 mls/hr Documented by: Midazolam HCl 100 mg/ Sodium (Chloride) 100 mls @ 2 mls/hr IV TITR YANG; Protocol Last Admin: 07/03/19 02:26 Dose: 2 mg/hr, 2 mls/hr Documented by: Cefepime HCl (Cefepime/Ns 1 Gm/100 Ml) 1 gm in 100 mls @ 200 mls/hr IV Q24HR [facility]; Protocol Last Admin: 07/03/19 09:31 Dose: 200 mls/hr Documented by: Insulin Human Lispro (Humalog) 0 unit SUB-Q Q6HR [facility]; Protocol Last Admin: 07/03/19 12:36 Dose: 4 unit Documented by: Midazolam HCl (Versed) 2 mg IV Q10MIN PRN PRN Reason: Sedation Multi-Ingred Cream/Lotion/Oil/Oint (Artificial Tears Ophth Oint) 1 applic OU Q4HR PRN PRN Reason: Dry Eye(s) Sodium Chloride (Sodium Chloride Flush Syringe 10 Ml) 10 ml IV BID [facility] Last Admin: 07/03/19 09:31 Dose: 10 ml Documented by: Sodium Chloride (Sodium Chloride Flush Syringe 10 Ml) 10 ml IV PRN PRN PRN Reason: LINE FLUSH Review of Systems ROS unobtainable: due to endotracheal tube, due to mental status Physical Examination Vital signs: Vital Signs Pulse Resp Pulse Ox 81 14 87 07/03/19 00:32 07/03/19 00:32 07/03/19 00:32 Vitals reviewed. Constitutional: not in any discomfort, other (middle aged thin female, normocephalic riding set rate on MVS, no patient-ventilator dys-synchrony) Eyes: non-icteric ENT: oropharynx dry, other (ETT 23 cm JORY) Neck: supple, no lymphadenopathy, no JVD Effort: mildly labored Ascultation: Bilateral: diminished breath sounds, rhonchi Percussion: Bilateral: not dull Cardiovascular: regular rate and rhythm Gastrointestinal: normoactive bowel sounds, soft, non-tender, non-distended Integumentary: normal Extremities: no cyanosis, no edema, pink and warm, pulses normal Neurologic: unable to assess Psychiatric: other (unable to assess re: AMS) Results - Laboratory Findings CBC and BMP: 07/07/19 05:38 07/07/19 05:38 ABG ABG pH 7.489 pH Units (7.350-7.450) H 07/03/19 04:30 ABG pCO2 37.5 mm Hg 07/03/19 04:30 ABG pO2 149.9 mm Hg (80.0-90.0) H 07/03/19 04:30 ABG O2 Saturation 98.9 % (95.0-99.0) 07/03/19 04:30 Abnormal lab findings: Abnormal Labs 07/03/19 07/03/19 07/03/19 01:00 01:00 01:00 WBC 17.9 H RDW 17.8 H Lymph % (Auto) 11.7 L [place] # 1.0 H Seg Neutrophils % 82.1 H Seg Neutrophils # 14.7 H ABG pH ABG pO2 ABG HCO3 ABG Base Excess Oxyhemoglobin Chloride 92.9 L BUN 45 H Creatinine 5.3 H Glucose 229 H POC Glucose Hemoglobin A1c Calcium 10.5 H NT-Pro-B Natriuret Pep > 28085 H Albumin 2.5 L 07/03/19 07/03/19 07/03/19 01:00 01:35 04:30 WBC RDW Lymph % (Auto) [place] # Seg Neutrophils % Seg Neutrophils # ABG pH 7.555 H 7.489 H ABG pO2 65.4 L 149.9 H ABG HCO3 28.9 H 27.9 H ABG Base Excess 6.7 H 4.5 H Oxyhemoglobin 94.0 L Chloride BUN Creatinine Glucose POC Glucose Hemoglobin A1c 7.0 H Calcium NT-Pro-B Natriuret Pep Albumin 07/03/19 12:10 WBC RDW Lymph % (Auto) [place] # Seg Neutrophils % Seg Neutrophils # ABG pH ABG pO2 ABG HCO3 ABG Base Excess Oxyhemoglobin Chloride BUN Creatinine Glucose POC Glucose 246 H Hemoglobin A1c Calcium NT-Pro-B Natriuret Pep Albumin Assessment and Plan Acute hypoxemic respiratory failure on MVS Acute toxic metabolic encephalopathy Severe Sepsis ESRD on HD Congestive heart Failure Accelerated Hypertension H/O Seizure - VAP bundle addressed (aspiration precautions, HOB>40 degrees) -Lung protective strategies -wean FiO2 for O2 sats >90% - continue bronchodilators with pulmonary hygiene per RT - ABG reviewed and addressed - Daily SAT's and SBT assessment as tolerated - confirm OGT placement and initiate enteral nutrition -RD consult for tube feeding recommendations - HD/UF per nephrology for toxin and volume clearance - Empiric antibiotics therapies (de-escalate based on cultures and clinical condition) - VTE prophylaxis with heparin SQ - stress ulcer prophylaxis with Famotidine - accuchecks with glycemic control for SSI (While critically ill target blood glucose of 140-180 mg/dL; avoid hypoglycemia) - mobility protocols and off loading for pressure ulcer prevention - Monitor hemodynamics closely - Fluid restrictive strategies as tolerated by hemodynamics and by her renal function - continue to avoid nephrotoxins, dose all medications for CrCL and GFR - Monitor electrolyte profile closely and replete as indicated - Chronic home medications, resume as clinically indicated - All other care per attending / other consultants CONDITION: CRITICAL PROGNOSIS: GUARDED CODE STATUS: FULL CODE The high probability of a clinically significant, sudden or life-threatening deterioration of the [respiratory, cardiovascular, neurology, renal] system(s) required my full and direct attention, intervention and personal management. The aggregate critical care time was [45] minutes without overlap. Time includes spent on; [x] Data Review and interpretation [x] Patient assessment and monitoring of vital signs [x] Documentation [x] Medication orders and management
--- NOTE | 2019-07-03 13:38 | Progress Note ---
Assessment and Plan Assessment and plan: Acute hypoxic respiratory failure -Patient intubated placed on ventilatory support -Continue ventilator, pulmonary input appreciated -ABG, daily -pulse oximetry, Monitor saturations -wean vent as tolerated, Toxic metabolic encephalopathy -Neuro checks -Continue supportive care Sepsis -CXR unremarkable -Leukocytosis present -Continue antibiotics - UC pending -Blood cultures pending ESRD on HD -M/W/F -Avoid nephrotoxic agents -Renal dose all meds -Nephrology following Congestive heart Failure -BNP >59002 -Monitor input and output. -Cardiology following and reports no evidence of volume overload Accelerated Hypertension -Continue to monitor BP -Cont. home antihypertensive meds Insulin-dependent diabetes -POC BG monitoring -SSI coverage prn Hx Seizure -Continue anticonvulsant meds DVT PPX -On Heparin History Interval history: No new issues Hospitalist Physical - Constitutional Vitals: Temp Pulse Resp BP Pulse Ox 99.7 F H 80 16 131/67 100 07/03/19 02:46 07/03/19 12:50 07/03/19 10:58 07/03/19 12:50 07/03/19 12:50 General appearance: Present: other (intubated on the vent) - EENT Eyes: Present: PERRL, EOM intact ENT: hearing intact, clear oral mucosa, dentition normal - Neck Neck: Present: supple, normal ROM - Respiratory Respiratory effort: normal Respiratory: bilateral: CTA - Cardiovascular Rhythm: regular Heart Sounds: Present: S1 & S2. Absent: gallop, rub - Extremities Extremities: no ischemia, No edema, Full ROM - Abdominal General gastrointestinal: soft, non-tender, non-distended, normal bowel sounds - Integumentary Integumentary: Present: clear, warm, dry - Neurologic Neurologic: CNII-XII intact, moves all extremities DANIELLE score - Danielle Score Age > 65: (0) No Aspirin use within the Past 7 Days: (0) No 3 or more CAD Risk Factors: (1) Yes 2 or more Angina events in past 24 hrs: (0) No Known CAD with more than 50% Stenosis: (0) No Elevated Cardiac Markers: (1) Yes ST Deviation Greater than 0.5mm: (0) No DANIELLE Score: 2 Results - Labs CBC & Chem 7: 07/03/19 01:00 07/03/19 01:00 Labs: Laboratory Last Values WBC 17.9 K/mm3 (4.5-11.0) H 07/03/19 01:00 RBC 4.76 M/mm3 (3.65-5.03) 07/03/19 01:00 Hgb 13.4 gm/dl (10.1-14.3) 07/03/19 01:00 Hct 40.9 % (30.3-42.9) 07/03/19 01:00 MCV 86 fl (79-97) 07/03/19 01:00 MCH 28 pg (28-32) 07/03/19 01:00 MCHC 33 % (30-34) 07/03/19 01:00 RDW 17.8 % (13.2-15.2) H 07/03/19 01:00 Plt Count 228 K/mm3 (140-440) 07/03/19 01:00 Lymph % (Auto) 11.7 % (13.4-35.0) L 07/03/19 01:00 [place] % (Auto) 5.3 % (0.0-7.3) 07/03/19 01:00 Eos % (Auto) 0.1 % (0.0-4.3) 07/03/19 01:00 Baso % (Auto) 0.8 % (0.0-1.8) 07/03/19 01:00 Lymph # 2.1 K/mm3 (1.2-5.4) 07/03/19 01:00 [place] # 1.0 K/mm3 (0.0-0.8) H 07/03/19 01:00 Eos # 0.0 K/mm3 (0.0-0.4) 07/03/19 01:00 Baso # 0.1 K/mm3 (0.0-0.1) 07/03/19 01:00 Seg Neutrophils % 82.1 % (40.0-70.0) H 07/03/19 01:00 Seg Neutrophils # 14.7 K/mm3 (1.8-7.7) H 07/03/19 01:00 ABG pH 7.489 pH Units (7.350-7.450) H 07/03/19 04:30 ABG pCO2 37.5 mm Hg 07/03/19 04:30 ABG pO2 149.9 mm Hg (80.0-90.0) H 07/03/19 04:30 ABG HCO3 27.9 mmol/L (20.0-26.0) H 07/03/19 04:30 ABG O2 Saturation 98.9 % (95.0-99.0) 07/03/19 04:30 ABG O2 Content 20.7 (0.0-44) 07/03/19 04:30 ABG Base Excess 4.5 mmol/L (-2.0-3.0) H 07/03/19 04:30 ABG Hemoglobin 15.0 gm/dl (12.0-16.0) 07/03/19 04:30 ABG Carboxyhemoglobin 1.3 % (0.0-5.0) 07/03/19 04:30 ABG Methemoglobin 0.5 % (0.0-1.5) 07/03/19 04:30 Oxyhemoglobin 97.1 % (95.0-99.0) 07/03/19 04:30 FiO2 60 % 07/03/19 04:30 Sodium 140 mmol/L (137-145) 07/03/19 01:00 Potassium 4.1 mmol/L (3.6-5.0) D 07/03/19 01:00 Chloride 92.9 mmol/L (98-107) L 07/03/19 01:00 Carbon Dioxide 28 mmol/L (22-30) 07/03/19 01:00 Anion Gap 23 mmol/L 07/03/19 01:00 BUN 45 mg/dL (7-17) H 07/03/19 01:00 Creatinine 5.3 mg/dL (0.7-1.2) H 07/03/19 01:00 Estimated GFR 8 ml/min 07/03/19 01:00 BUN/Creatinine Ratio 8 % 07/03/19 01:00 Glucose 229 mg/dL (65-100) H 07/03/19 01:00 POC Glucose 246 (70-105) H 07/03/19 12:10 Hemoglobin A1c 7.0 % (4-6) H 07/03/19 01:00 Lactic Acid 1.20 mmol/L (0.7-2.0) 07/03/19 04:13 Calcium 10.5 mg/dL (8.4-10.2) H 07/03/19 01:00 Total Bilirubin 0.30 mg/dL (0.1-1.2) 07/03/19 01:00 AST 22 units/L (5-40) 07/03/19 01:00 ALT 9 units/L (7-56) 07/03/19 01:00 Alkaline Phosphatase 101 units/L (35-129) 07/03/19 01:00 Ammonia 35.0 umol/L (25-60) 07/03/19 01:58 NT-Pro-B Natriuret Pep > 11975 pg/mL (0-900) H 07/03/19 01:00 Total Protein 7.0 g/dL (6.3-8.2) 07/03/19 01:00 Albumin 2.5 g/dL (3.9-5) L 07/03/19 01:00 Albumin/Globulin Ratio 0.6 % 07/03/19 01:00 TSH 2.600 mlU/mL (0.270-4.200) 07/03/19 01:00 Urine Color Yellow (Yellow) 07/03/19 Unknown Urine Turbidity Clear (Clear) 07/03/19 Unknown Urine pH 6.0 (5.0-7.0) 07/03/19 Unknown Ur Specific [place] 1.012 (1.003-1.030) 07/03/19 Unknown Urine Protein >500 mg/dL (Negative) 07/03/19 Unknown Urine Glucose (UA) >=500 mg/dL (Negative) 07/03/19 Unknown Urine Ketones Neg mg/dL (Negative) 07/03/19 Unknown Urine Blood Neg (Negative) 07/03/19 Unknown Urine Nitrite Neg (Negative) 07/03/19 Unknown Ur Reducing Substances Not Reportable 07/03/19 Unknown Urine Bilirubin Neg (Negative) 07/03/19 Unknown Urine Ictotest Not Reportable 07/03/19 Unknown Urine Urobilinogen < 2.0 mg/dL (<2.0) 07/03/19 Unknown Ur Leukocyte Esterase Neg (Negative) 07/03/19 Unknown Urine WBC (Auto) 1.0 /HPF (0.0-6.0) 07/03/19 Unknown Urine RBC (Auto) 2.0 /HPF (0.0-6.0) 07/03/19 Unknown U Epithel Cells (Auto) < 1.0 /HPF (0-13.0) 07/03/19 Unknown Urine Mucus Few /HPF 07/03/19 Unknown Active Medications - Current Medications Current Medications: Generic Name Dose Route Start Last Admin Trade Name Freq PRN Reason Stop Dose Admin Dextrose 0 ml 07/03/19 04:34 D50w (25gm) Syringe IV Q30MIN PRN Hypoglycemia Protocol Famotidine 20 mg 07/03/19 10:00 07/03/19 09:31 Pepcid IV 20 mg DAILY YANG Administration Heparin Sodium (Porcine) 5,000 unit 07/03/19 10:00 07/03/19 09:31 Heparin SUB-Q 5,000 unit Q12HR YANG Administration Hydrophilic Ointment 1 applic 07/03/19 00:53 Vaseline Lip Therapy TP Q2HR PRN Dry Lips Fentanyl Citrate 2,000 mcg in 100 mls @ 2.608 mls/hr 07/03/19 01:00 07/03/19 02:25 Fentanyl Drip Premix IV 1 mcg/kg/hr TITR YANG 2.608 mls/hr Administration Protocol 1 MCG/KG/HR Midazolam HCl 100 mg/ Sodium 100 mls @ 2 mls/hr 07/03/19 02:15 07/03/19 02:26 Chloride IV 2 mg/hr TITR YANG 2 mls/hr Administration Protocol 2 MG/HR Cefepime HCl 1 gm in 100 mls @ 200 mls/hr 07/03/19 10:00 07/03/19 09:31 Cefepime/Ns 1 Gm/100 Ml IV 200 mls/hr Q24HR YANG Administration Protocol Insulin Human Lispro 0 unit 07/03/19 06:00 07/03/19 12:36 Humalog SUB-Q 4 unit Q6HR YANG Administration Protocol Midazolam HCl 2 mg 07/03/19 01:50 Versed IV Q10MIN PRN Sedation Multi-Ingred Cream/Lotion/Oil/Oint 1 applic 07/03/19 00:53 Artificial Tears Ophth Oint OU Q4HR PRN Dry Eye(s) Sodium Chloride 10 ml 07/03/19 10:00 07/03/19 09:31 Sodium Chloride Flush Syringe 10 Ml IV 10 ml BID YANG Administration Sodium Chloride 10 ml 07/03/19 04:34 Sodium Chloride Flush Syringe 10 Ml IV PRN PRN LINE FLUSH
[2019-07-03] MEDS ORDERED: fentaNYL DRIP Premix 2,000 MCG/100 ML BAG IV ONE (16:15)
[2019-07-03] MEDS ORDERED: ACETAMINOPHEN 650 MG RECT SUPP PR ONE (20:30)
[2019-07-04] MEDS: INSULIN LISPRO 100 UNIT/ML SUB-Q SCH ×4 (00:01→18:15)
--- NOTE | 2019-07-04 02:17 | XRay Report ---
CHEST 1 VIEW INDICATION / CLINICAL INFORMATION: follow up respiratory failure. COMPARISON: 07/03/2019 FINDINGS: SUPPORT DEVICES: Endotracheal tube and nasogastric tube appear unchanged HEART / MEDIASTINUM: Unchanged LUNGS / PLEURA: There is slight improvement in atelectatic changes in both lungs.. No pneumothorax. ADDITIONAL FINDINGS: No significant additional findings. IMPRESSION: 1. Slight improvement in atelectasis in the interval. Signer Name: Salazar Torres MD Signed: 07/04/2019 2:12 AM Workstation Name: [email or web address]
[2019-07-04 04:41] LABS: ABG Base Excess 4.7 mmol/L (-2.0-3.0); ABG HCO3 28.1 mmol/L (20.0-26.0); ABG Methemoglobin 0.4 % (0.0-1.5); ABG Oxygen Saturation 95.9 % (95.0-99.0); ABG PCO2 37.1 mm Hg; ABG PH 7.496 pH Units (7.350-7.450)
[2019-07-04 05:35] LABS: Basophils # (Auto) 0.1 K/mm3 (0.0-0.1); Basophils % (Auto) 0.3 % (0.0-1.8); Eosinophils # (Auto) 0.1 K/mm3 (0.0-0.4); Eosinophils % (Auto) 0.7 % (0.0-4.3); Hematocrit 37.3 % (30.3-42.9); Hemoglobin 12.2 gm/dl (10.1-14.3); Lymphocytes # (Auto) 1.5 K/mm3 (1.2-5.4); Lymphocytes % (Auto) 8.7 % (13.4-35.0); Mean Corpuscular HGB Conc 33 % (30-34); Mean Corpuscular Volume 87 fl (79-97); Monocytes # (Auto) 0.9 K/mm3 (0.0-0.8); Monocytes % (Auto) 5.2 % (0.0-7.3); Platelet Count 246 K/mm3 (140-440); Red Blood Count 4.28 M/mm3 (3.65-5.03)
[2019-07-04] MEDS ORDERED: ACETAMINOPHEN 650 MG RECT SUPP PR ONE ×2 (06:58→08:42)
[2019-07-04] MEDS ORDERED: FAMOTIDINE 20 MG/2 ML INJ IV ONE (08:46)
[2019-07-04] MEDS ORDERED: HEPARIN 5,000 UNIT/1 ML VIAL ONE (08:46)
[2019-07-04] MEDS: HEPARIN 5,000 UNIT/1 ML VIAL SUB-Q SCH ×2 (09:45→22:20)
[2019-07-04] MEDS: CEFEPIME/NS 1 GM/100 ML 1 GM/100 ML BAG IV SCH (09:45)
[2019-07-04] MEDS: FAMOTIDINE 20 MG/2 ML INJ IV SCH (09:45)
[2019-07-04] MEDS ORDERED: ALBUMIN HUMAN 25% (25 GM/100 ML) INJ IV PRN (12:37)
--- NOTE | 2019-07-04 12:39 | Progress Note ---
Assessment and Plan Assessment and plan: Acute hypoxic respiratory failure -Continue mechanical ventilation per pulmonary. -pulse oximetry, Monitor saturations -wean vent as tolerated Toxic metabolic encephalopathy -Neuro checks -Continue to treat underlying causes. Sepsis -CXR unremarkable -Leukocytosis present -Continue antibiotics -Blood cultures negative x24 hours. ESRD on HD -M/W/F -Avoid nephrotoxic agents -Renal dose all meds -Nephrology following Congestive heart Failure -BNP >46315 -Monitor input and output. -Cardiology following and reports no evidence of volume overload Accelerated Hypertension -Continue to monitor BP -Patient actually hypotensive at present. Insulin-dependent diabetes -POC BG monitoring -SSI coverage prn Hx Seizure -Continue anticonvulsant meds DVT PPX -On Heparin History Interval history: Patient remains orally intubated currently undergoing hemodialysis. Hospitalist Physical - Constitutional Vitals: Temp Pulse Resp BP Pulse Ox 98.7 F 72 18 100/56 100 07/04/19 10:30 07/04/19 12:30 07/04/19 10:30 07/04/19 12:30 07/04/19 11:38 General appearance: Present: other (intubated on the vent) - EENT Eyes: Present: PERRL, EOM intact ENT: hearing intact, clear oral mucosa, dentition normal - Neck Neck: Present: supple, normal ROM - Respiratory Respiratory effort: normal Respiratory: bilateral: CTA - Cardiovascular Rhythm: regular Heart Sounds: Present: S1 & S2. Absent: gallop, rub - Extremities Extremities: no ischemia, No edema, Full ROM - Abdominal General gastrointestinal: soft, non-tender, non-distended, normal bowel sounds - Integumentary Integumentary: Present: clear, warm, dry - Neurologic Neurologic: CNII-XII intact, moves all extremities DANIELLE score - Danielle Score Age > 65: (0) No Aspirin use within the Past 7 Days: (0) No 3 or more CAD Risk Factors: (1) Yes 2 or more Angina events in past 24 hrs: (0) No Known CAD with more than 50% Stenosis: (0) No Elevated Cardiac Markers: (1) Yes ST Deviation Greater than 0.5mm: (0) No DANIELLE Score: 2 Results - Labs CBC & Chem 7: 07/04/19 04:56 07/04/19 04:56 Labs: Laboratory Last Values WBC 17.3 K/mm3 (4.5-11.0) H 07/04/19 04:56 RBC 4.28 M/mm3 (3.65-5.03) 07/04/19 04:56 Hgb 12.2 gm/dl (10.1-14.3) 07/04/19 04:56 Hct 37.3 % (30.3-42.9) 07/04/19 04:56 MCV 87 fl (79-97) 07/04/19 04:56 MCH 28 pg (28-32) 07/04/19 04:56 MCHC 33 % (30-34) 07/04/19 04:56 RDW 18.0 % (13.2-15.2) H 07/04/19 04:56 Plt Count 246 K/mm3 (140-440) 07/04/19 04:56 Lymph % (Auto) 8.7 % (13.4-35.0) L 07/04/19 04:56 [place] % (Auto) 5.2 % (0.0-7.3) 07/04/19 04:56 Eos % (Auto) 0.7 % (0.0-4.3) 07/04/19 04:56 Baso % (Auto) 0.3 % (0.0-1.8) 07/04/19 04:56 Lymph # 1.5 K/mm3 (1.2-5.4) 07/04/19 04:56 [place] # 0.9 K/mm3 (0.0-0.8) H 07/04/19 04:56 Eos # 0.1 K/mm3 (0.0-0.4) 07/04/19 04:56 Baso # 0.1 K/mm3 (0.0-0.1) 07/04/19 04:56 Seg Neutrophils % 85.1 % (40.0-70.0) H 07/04/19 04:56 Seg Neutrophils # 14.8 K/mm3 (1.8-7.7) H 07/04/19 04:56 ABG pH 7.496 pH Units (7.350-7.450) H 07/04/19 04:24 ABG pCO2 37.1 mm Hg 07/04/19 04:24 ABG pO2 74.0 mm Hg (80.0-90.0) L 07/04/19 04:24 ABG HCO3 28.1 mmol/L (20.0-26.0) H 07/04/19 04:24 ABG O2 Saturation 95.9 % (95.0-99.0) 07/04/19 04:24 ABG O2 Content 16.7 (0.0-44) 07/04/19 04:24 ABG Base Excess 4.7 mmol/L (-2.0-3.0) H 07/04/19 04:24 ABG Hemoglobin 12.6 gm/dl (12.0-16.0) 07/04/19 04:24 ABG Carboxyhemoglobin 1.7 % (0.0-5.0) 07/04/19 04:24 ABG Methemoglobin 0.4 % (0.0-1.5) 07/04/19 04:24 Oxyhemoglobin 93.9 % (95.0-99.0) L 07/04/19 04:24 FiO2 30 % 07/04/19 04:24 Sodium 140 mmol/L (137-145) 07/04/19 04:56 Potassium 4.1 mmol/L (3.6-5.0) 07/04/19 04:56 Chloride 95.5 mmol/L (98-107) L 07/04/19 04:56 Carbon Dioxide 25 mmol/L (22-30) 07/04/19 04:56 Anion Gap 24 mmol/L 07/04/19 04:56 BUN 26 mg/dL (7-17) H 07/04/19 04:56 Creatinine 3.4 mg/dL (0.7-1.2) H 07/04/19 04:56 Estimated GFR 14 ml/min 07/04/19 04:56 BUN/Creatinine Ratio 8 % 07/04/19 04:56 Glucose 145 mg/dL (65-100) H 07/04/19 04:56 POC Glucose 162 (70-105) H 07/04/19 07:04 Hemoglobin A1c 7.0 % (4-6) H 07/03/19 01:00 Lactic Acid 1.20 mmol/L (0.7-2.0) 07/03/19 04:13 Calcium 10.0 mg/dL (8.4-10.2) 07/04/19 04:56 Phosphorus 3.50 mg/dL (2.5-4.5) 07/04/19 04:56 Total Bilirubin 0.30 mg/dL (0.1-1.2) 07/03/19 01:00 AST 22 units/L (5-40) 07/03/19 01:00 ALT 9 units/L (7-56) 07/03/19 01:00 Alkaline Phosphatase 101 units/L (35-129) 07/03/19 01:00 Ammonia 35.0 umol/L (25-60) 07/03/19 01:58 NT-Pro-B Natriuret Pep > 02127 pg/mL (0-900) H 07/03/19 01:00 Total Protein 7.0 g/dL (6.3-8.2) 07/03/19 01:00 Albumin 2.5 g/dL (3.9-5) L 07/03/19 01:00 Albumin/Globulin Ratio 0.6 % 07/03/19 01:00 TSH 2.600 mlU/mL (0.270-4.200) 07/03/19 01:00 Urine Color Yellow (Yellow) 07/03/19 Unknown Urine Turbidity Clear (Clear) 07/03/19 Unknown Urine pH 6.0 (5.0-7.0) 07/03/19 Unknown Ur Specific [place] 1.012 (1.003-1.030) 07/03/19 Unknown Urine Protein >500 mg/dL (Negative) 07/03/19 Unknown Urine Glucose (UA) >=500 mg/dL (Negative) 07/03/19 Unknown Urine Ketones Neg mg/dL (Negative) 07/03/19 Unknown Urine Blood Neg (Negative) 07/03/19 Unknown Urine Nitrite Neg (Negative) 07/03/19 Unknown Ur Reducing Substances Not Reportable 07/03/19 Unknown Urine Bilirubin Neg (Negative) 07/03/19 Unknown Urine Ictotest Not Reportable 07/03/19 Unknown Urine Urobilinogen < 2.0 mg/dL (<2.0) 07/03/19 Unknown Ur Leukocyte Esterase Neg (Negative) 07/03/19 Unknown Urine WBC (Auto) 1.0 /HPF (0.0-6.0) 07/03/19 Unknown Urine RBC (Auto) 2.0 /HPF (0.0-6.0) 07/03/19 Unknown U Epithel Cells (Auto) < 1.0 /HPF (0-13.0) 07/03/19 Unknown Urine Mucus Few /HPF 07/03/19 Unknown Active Medications - Current Medications Current Medications: Generic Name Dose Route Start Last Admin Trade Name Freq PRN Reason Stop Dose Admin Dextrose 0 ml 07/03/19 04:34 D50w (25gm) Syringe IV Q30MIN PRN Hypoglycemia Protocol Famotidine 20 mg 07/03/19 10:00 07/04/19 09:45 Pepcid IV 20 mg DAILY YANG Administration Heparin Sodium (Porcine) 5,000 unit 07/03/19 10:00 07/04/19 09:45 Heparin SUB-Q 5,000 unit Q12HR YANG Administration Hydrophilic Ointment 1 applic 07/03/19 00:53 Vaseline Lip Therapy TP Q2HR PRN Dry Lips Fentanyl Citrate 2,000 mcg in 100 mls @ 2.608 mls/hr 07/03/19 01:00 07/03/19 02:25 Fentanyl Drip Premix IV 1 mcg/kg/hr TITR YANG 2.608 mls/hr Administration Protocol 1 MCG/KG/HR Midazolam HCl 100 mg/ Sodium 100 mls @ 2 mls/hr 07/03/19 02:15 07/03/19 02:26 Chloride IV 2 mg/hr TITR YANG 2 mls/hr Administration Protocol 2 MG/HR Cefepime HCl 1 gm in 100 mls @ 200 mls/hr 07/03/19 10:00 07/04/19 09:45 Cefepime/Ns 1 Gm/100 Ml IV 200 mls/hr Q24HR YANG Administration Protocol Insulin Human Lispro 0 unit 07/03/19 06:00 07/04/19 06:57 Humalog SUB-Q Not Given Q6HR [facility] Protocol Midazolam HCl 2 mg 07/03/19 01:50 Versed IV Q10MIN PRN Sedation Multi-Ingred Cream/Lotion/Oil/Oint 1 applic 07/03/19 00:53 Artificial Tears Ophth Oint OU Q4HR PRN Dry Eye(s) Sodium Chloride 10 ml 07/03/19 10:00 07/04/19 09:45 Sodium Chloride Flush Syringe 10 Ml IV 10 ml BID YANG Administration Sodium Chloride 10 ml 07/03/19 04:34 Sodium Chloride Flush Syringe 10 Ml IV PRN PRN LINE FLUSH
--- NOTE | 2019-07-04 12:41 | Progress Note ---
Assessment and Plan Acute hypoxic respiratory failure on mechanical ventilation Acute metabolic encephalopathy ESRD on HD HTN Sepsis Hx of seizures DM Type 2 on insulin Plan: - S/p HD yesterday for UF and clearance - HD again today for UF and clearance with decreased bicarbonate bath, updated dialysis nurse - PRN albumin for intradialytic hypotension - Assess dialysis needs daily - No indication for Epogen - Currently on Intubated on Vent - as per Pulmonology - Strict I&O - Renally dose meds - This pt undergoes outpatient HD at [facility] every MWF - Renal plan d/w Dr Wray Subjective Date of service: 07/04/19 Interval history: Pt seen in ED intubated, currently undergoing HD at bedside. Objective - Vital Signs Vital signs: Vital Signs - 12hr 07/04/19 07/04/19 07/04/19 01:00 01:08 01:30 Temperature Pulse Rate 78 79 Respiratory 18 18 18 Rate Blood Pressure 165/74 181/77 O2 Sat by Pulse 99 100 99 Oximetry 07/04/19 07/04/19 07/04/19 02:00 02:30 03:00 Temperature Pulse Rate 80 80 81 Respiratory 17 18 18 Rate Blood Pressure 178/79 169/79 162/77 O2 Sat by Pulse 99 100 98 Oximetry 07/04/19 07/04/19 07/04/19 03:30 04:00 04:29 Temperature Pulse Rate 83 83 83 Respiratory 18 18 Rate Blood Pressure 158/76 158/79 158/76 O2 Sat by Pulse 98 96 97 Oximetry 07/04/19 07/04/19 07/04/19 04:30 05:00 05:30 Temperature Pulse Rate 82 84 85 Respiratory 18 18 18 Rate Blood Pressure 158/76 152/73 160/77 O2 Sat by Pulse 95 93 96 Oximetry 07/04/19 07/04/19 07/04/19 06:00 06:30 07:00 Temperature Pulse Rate 86 86 Respiratory 18 18 18 Rate Blood Pressure 161/77 159/75 146/70 O2 Sat by Pulse 97 97 97 Oximetry 07/04/19 07/04/19 07/04/19 07:51 10:30 10:36 Temperature 98.7 F Pulse Rate 89 80 78 Respiratory 18 Rate Blood Pressure 131/66 120/61 126/62 O2 Sat by Pulse 100 Oximetry 07/04/19 07/04/19 07/04/19 10:45 11:00 11:15 Temperature Pulse Rate 79 80 78 Respiratory Rate Blood Pressure 105/59 91/54 104/59 O2 Sat by Pulse Oximetry 07/04/19 07/04/19 07/04/19 11:30 11:38 11:45 Temperature Pulse Rate 79 77 77 Respiratory Rate Blood Pressure 97/57 97/57 88/54 O2 Sat by Pulse 100 Oximetry 07/04/19 07/04/19 07/04/19 12:00 12:15 12:30 Temperature Pulse Rate 75 73 72 Respiratory Rate Blood Pressure 97/55 91/54 100/56 O2 Sat by Pulse Oximetry - General Appearance General appearance: intubated EENT: ATNC Neck: no JVD Respiratory: Present: Other (Lung sounds decreased, intubated on ventilator) Cardiology: regular, S1S2, other (ACCESS: Left AVF in use) Gastrointestinal: normoactive bowel sounds (orogastric tube in place) Integumentary: warm and dry Neurologic: other (intubated on ventilator) Musculoskeletal: other (no edema to BLE) Psychiatric: other (unable to assess) - Lab 07/04/19 04:56 07/04/19 04:56 Most recent lab results ABG pH 7.496 pH Units (7.350-7.450) H 07/04/19 04:24 ABG pCO2 37.1 mm Hg 07/04/19 04:24 ABG pO2 74.0 mm Hg (80.0-90.0) L 07/04/19 04:24 ABG HCO3 28.1 mmol/L (20.0-26.0) H 07/04/19 04:24 ABG O2 Saturation 95.9 % (95.0-99.0) 07/04/19 04:24 Calcium 10.0 mg/dL (8.4-10.2) 07/04/19 04:56 Phosphorus 3.50 mg/dL (2.5-4.5) 07/04/19 04:56 Medications & Allergies - Medications Allergies/Adverse Reactions: Allergies No Known Allergies Allergy (Verified 07/03/19 10:58) Home Medications: Home Medications Medication Instructions Recorded Confirmed Last Taken Type Amlodipine Besylate [Norvasc] 10 mg PO DAILY 06/24/19 07/04/19 Unknown History AtorvaSTATin [Lipitor] 20 mg PO QHS 06/24/19 07/04/19 Unknown History Bumetanide 1 mg PO DAILY 06/24/19 07/04/19 Unknown History Cinacalcet HCl 30 mg PO DAILY 06/24/19 07/04/19 Unknown History Divalproex Sodium [Depakote 500 mg PO BID 06/24/19 07/04/19 Unknown History Sprinkle] Lispro Insulin [HumaLOG] 0 - 200 unit SQ ACHS 06/24/19 07/04/19 Unknown History Vit B Comp No.3/Folic/C/Biotin 1 each PO DAILY 06/24/19 07/04/19 Unknown History [Nephro-Umu Rx Tablet] carvediloL [Coreg] 25 mg PO BID 06/24/19 07/04/19 Unknown History hydrALAZINE [Apresoline TAB] 50 mg PO Q8HR 06/24/19 07/04/19 Unknown History ALBUTEROL NEB's [Proventil 0.083% 2.5 mg IH TIDRT #30 nebu 06/30/19 07/04/19 Un known Rx NEBS] Lactulose [Cephulac] 20 gm PO Q8HR oral.liqd 06/30/19 07/04/19 Unknown Rx Sevelamer Carbonate [Renvela] 800 mg PO TIDWM tablet 06/30/19 07/04/19 Unknown Rx risperiDONE [RisperDAL] 0.5 mg PO BID tablet 06/30/19 07/04/19 Unknown Rx Active Medications: Generic Name Dose Route Start Last Admin Trade Name Freq PRN Reason Stop Dose Admin Dextrose 0 ml 07/03/19 04:34 D50w (25gm) Syringe IV Q30MIN PRN Hypoglycemia Protocol Famotidine 20 mg 07/03/19 10:00 07/04/19 09:45 Pepcid IV 20 mg DAILY YANG Administration Heparin Sodium (Porcine) 5,000 unit 07/03/19 10:00 07/04/19 09:45 Heparin SUB-Q 5,000 unit Q12HR YANG Administration Hydrophilic Ointment 1 applic 07/03/19 00:53 Vaseline Lip Therapy TP Q2HR PRN Dry Lips Fentanyl Citrate 2,000 mcg in 100 mls @ 2.608 mls/hr 07/03/19 01:00 07/03/19 02:25 Fentanyl Drip Premix IV 1 mcg/kg/hr TITR YANG 2.608 mls/hr Administration Protocol 1 MCG/KG/HR Midazolam HCl 100 mg/ Sodium 100 mls @ 2 mls/hr 07/03/19 02:15 07/03/19 02:26 Chloride IV 2 mg/hr TITR YANG 2 mls/hr Administration Protocol 2 MG/HR Cefepime HCl 1 gm in 100 mls @ 200 mls/hr 07/03/19 10:00 07/04/19 09:45 Cefepime/Ns 1 Gm/100 Ml IV 200 mls/hr Q24HR YANG Administration Protocol Insulin Human Lispro 0 unit 07/03/19 06:00 07/04/19 06:57 Humalog SUB-Q Not Given Q6HR [facility] Protocol Midazolam HCl 2 mg 07/03/19 01:50 Versed IV Q10MIN PRN Sedation Multi-Ingred Cream/Lotion/Oil/Oint 1 applic 07/03/19 00:53 Artificial Tears Ophth Oint OU Q4HR PRN Dry Eye(s) Sodium Chloride 10 ml 07/03/19 10:00 07/04/19 09:45 Sodium Chloride Flush Syringe 10 Ml IV 10 ml BID YANG Administration Sodium Chloride 10 ml 07/03/19 04:34 Sodium Chloride Flush Syringe 10 Ml IV PRN PRN LINE FLUSH
--- NOTE | 2019-07-04 15:39 | Progress Note ---
Assessment and Plan Acute hypoxemic respiratory failure Toxic metabolic encephalopathy Severe Sepsis ESRD on HD Congestive heart Failure Accelerated Hypertension H/O Seizure - reduced set rate to 12 - asked RN to hold fentanyl (daily SAT) - VAP bundle addressed (aspiration precautions, HOB>40 degrees) - continue lung protective strategies - continue to wean FiO2 for O2 sats >90% - continue bronchodilators with pulmonary hygiene per RT - CXR ordered; ABG reviewed and addressed - Daily SAT's and SBT assessment as tolerated - continue enteral nutrition at goal rate as tolerated - AED's per neurology recommendations - HD/UF per nephrology rec's for toxin and volume clearance - continue Empiric antibiotics therapies (de-escalate based on cultures and clinical condition) - ID evaluation ongoing - VTE prophylaxis with heparin SQ - continue stress ulcer prophylaxis with Famotidine - accuchecks with glycemic control for SSI (While critically ill target blood glucose of 140-180 mg/dL; avoid hypoglycemia) - mobility protocols for pressure ulcer prevention - Monitor hemodynamics closely - Fluid restrictive strategies as tolerated by hemodynamics and by her renal function (patient has a history of cardiomyopathy and has elevated BNP at this time) - continue to avoid nephrotoxins, dose all medications fro CrCL and GFR - Monitor electrolyte profile closely and replete as indicated - Chronic home medications, resume as clinically indicated - continue other care per attending / other consultants ... re-evaluate in am & prn CONDITION: CRITICAL PROGNOSIS: GUARDED CODE STATUS: FULL CODE The high probability of a clinically significant, sudden or life-threatening deterioration of the [respiratory, cardiovascular, neurology, renal] system(s) required my full and direct attention, intervention and personal management. The aggregate critical care time was [35] minutes without overlap. Time includes spent on; [x] Data Review and interpretation [x] Patient assessment and monitoring of vital signs [x] Documentation [x] Medication orders and management Subjective Date of service: 07/04/19 Principal diagnosis: Acute hypoxemic resp failure; AMS; Severe Sepsis; ESRD; CHF; HTN; Seizure Interval history: Patient is seen today for: Acute hypoxemic respiratory failure; Toxic metabolic encephalopathy; Severe Sepsis; ESRD on HD; CHF; Accelerated Hypertension; H/O Seizure Seen and examined at bedside; 24hour events reviewed; nursing and respiratory care staff consulted; no adverse overnight events reported to me; resting peacefully in bed; on fentanyl drip; no emesis or overt aspiration; not following commands Objective Vital Signs - 12hr 07/04/19 07/04/19 07/04/19 04:00 04:29 04:30 Temperature Pulse Rate 83 83 82 Respiratory 18 18 Rate Blood Pressure 158/79 158/76 158/76 O2 Sat by Pulse 96 97 95 Oximetry 07/04/19 07/04/19 07/04/19 05:00 05:30 06:00 Temperature Pulse Rate 84 85 86 Respiratory 18 18 18 Rate Blood Pressure 152/73 160/77 161/77 O2 Sat by Pulse 93 96 97 Oximetry 07/04/19 07/04/19 07/04/19 06:30 07:00 07:51 Temperature Pulse Rate 86 89 Respiratory 18 18 Rate Blood Pressure 159/75 146/70 131/66 O2 Sat by Pulse 97 97 100 Oximetry 07/04/19 07/04/19 07/04/19 10:30 10:36 10:45 Temperature 98.7 F Pulse Rate 80 78 79 Respiratory 18 Rate Blood Pressure 120/61 126/62 105/59 O2 Sat by Pulse Oximetry 07/04/19 07/04/19 07/04/19 11:00 11:15 11:30 Temperature Pulse Rate 80 78 79 Respiratory Rate Blood Pressure 91/54 104/59 97/57 O2 Sat by Pulse Oximetry 07/04/19 07/04/19 07/04/19 11:38 11:45 12:00 Temperature Pulse Rate 77 77 75 Respiratory Rate Blood Pressure 97/57 88/54 97/55 O2 Sat by Pulse 100 Oximetry 07/04/19 07/04/19 07/04/19 12:15 12:30 12:45 Temperature Pulse Rate 73 72 72 Respiratory Rate Blood Pressure 91/54 100/56 101/58 O2 Sat by Pulse Oximetry 07/04/19 07/04/19 07/04/19 13:00 13:15 13:36 Temperature Pulse Rate 72 72 72 Respiratory Rate Blood Pressure 91/54 92/54 87/54 O2 Sat by Pulse Oximetry Constitutional: appears uncomfortable, other (middle aged thin female, norm ocephalic riding set rate on MVS) Eyes: non-icteric ENT: oropharynx dry, other (ETT 23 cm JORY) Neck: supple, no lymphadenopathy, no JVD Effort: mildly labored Ascultation: Bilateral: diminished breath sounds, rhonchi Percussion: Bilateral: not dull Cardiovascular: regular rate and rhythm Gastrointestinal: normoactive bowel sounds, soft, non-tender, non-distended Integumentary: normal Extremities: no cyanosis, no edema, pink and warm, pulses normal Neurologic: unable to assess Psychiatric: other (unable to assess re: AMS) CBC and BMP: 07/05/19 09:06 07/05/19 05:57 ABG, PT/INR, D-dimer: ABG ABG pH 7.496 pH Units (7.350-7.450) H 07/04/19 04:24 ABG pCO2 37.1 mm Hg 07/04/19 04:24 ABG pO2 74.0 mm Hg (80.0-90.0) L 07/04/19 04:24 ABG O2 Saturation 95.9 % (95.0-99.0) 07/04/19 04:24 Abnormal lab findings: Abnormal Labs 07/03/19 07/03/19 07/03/19 01:00 01:00 01:00 WBC 17.9 H RDW 17.8 H Lymph % (Auto) 11.7 L [place] # 1.0 H Seg Neutrophils % 82.1 H Seg Neutrophils # 14.7 H ABG pH ABG pO2 ABG HCO3 ABG Base Excess Oxyhemoglobin Chloride 92.9 L BUN 45 H Creatinine 5.3 H Glucose 229 H POC Glucose Hemoglobin A1c Calcium 10.5 H NT-Pro-B Natriuret Pep > 39545 H Albumin 2.5 L 07/03/19 07/03/19 07/03/19 01:00 01:35 04:30 WBC RDW Lymph % (Auto) [place] # Seg Neutrophils % Seg Neutrophils # ABG pH 7.555 H 7.489 H ABG pO2 65.4 L 149.9 H ABG HCO3 28.9 H 27.9 H ABG Base Excess 6.7 H 4.5 H Oxyhemoglobin 94.0 L Chloride BUN Creatinine Glucose POC Glucose Hemoglobin A1c 7.0 H Calcium NT-Pro-B Natriuret Pep Albumin 07/03/19 07/03/19 07/03/19 12:10 17:35 23:59 WBC RDW Lymph % (Auto) [place] # Seg Neutrophils % Seg Neutrophils # ABG pH ABG pO2 ABG HCO3 ABG Base Excess Oxyhemoglobin Chloride BUN Creatinine Glucose POC Glucose 246 H 163 H 112 H Hemoglobin A1c Calcium NT-Pro-B Natriuret Pep Albumin 07/04/19 07/04/19 07/04/19 04:24 04:56 04:56 WBC 17.3 H RDW 18.0 H Lymph % (Auto) 8.7 L [place] # 0.9 H Seg Neutrophils % 85.1 H Seg Neutrophils # 14.8 H ABG pH 7.496 H ABG pO2 74.0 L ABG HCO3 28.1 H ABG Base Excess 4.7 H Oxyhemoglobin 93.9 L Chloride 95.5 L BUN 26 H Creatinine 3.4 H Glucose 145 H POC Glucose Hemoglobin A1c Calcium NT-Pro-B Natriuret Pep Albumin 07/04/19 07:04 WBC RDW Lymph % (Auto) [place] # Seg Neutrophils % Seg Neutrophils # ABG pH ABG pO2 ABG HCO3 ABG Base Excess Oxyhemoglobin Chloride BUN Creatinine Glucose POC Glucose 162 H Hemoglobin A1c Calcium NT-Pro-B Natriuret Pep Albumin Chest x-ray: image reviewed (ETT in good position; no focal infiltrate) Allied health notes reviewed: nursing
[2019-07-04] MEDS ORDERED: fentaNYL DRIP Premix 2,000 MCG/100 ML BAG IV ONE (15:51)
[2019-07-04] MEDS ORDERED: VANCOMYCIN/NS 1 GM/250 ML 1 GM/250 ML BAG IV ONE (18:00)
[2019-07-04] MEDS ORDERED: INSULIN LISPRO 100 UNIT/ML SUB-Q ONE (18:14)
[2019-07-05 03:24] LABS: Basophils % (Auto) 0.2 % (0.0-1.8); Eosinophils # (Auto) 0.3 K/mm3 (0.0-0.4); Eosinophils % (Auto) 1.5 % (0.0-4.3); Hematocrit 37.2 % (30.3-42.9); Hemoglobin 11.8 gm/dl (10.1-14.3); Lymphocytes # (Auto) 1.4 K/mm3 (1.2-5.4); Lymphocytes % (Auto) 7.6 % (13.4-35.0); Mean Corpuscular HGB Conc 32 % (30-34); Mean Corpuscular Volume 88 fl (79-97); Monocytes # (Auto) 1.2 K/mm3 (0.0-0.8); Monocytes % (Auto) 6.5 % (0.0-7.3); Platelet Count 279 K/mm3 (140-440); Red Blood Count 4.22 M/mm3 (3.65-5.03); Red Cell Distribution Width 17.7 % (13.2-15.2)
--- NOTE | 2019-07-05 03:40 | XRay Report ---
CHEST 1 VIEW INDICATION / CLINICAL INFORMATION: follow up respiratory failure. COMPARISON: 07/04/2019 FINDINGS: Patient is rotated SUPPORT DEVICES: Endotracheal tube and nasogastric tube appear unchanged HEART / MEDIASTINUM: No significant abnormality. LUNGS / PLEURA: There is increase in interstitial markings bilaterally characteristic of edema. There is mild increase in atelectasis in the left base. No pneumothorax. ADDITIONAL FINDINGS: No significant additional findings. IMPRESSION:. 1. Mild increase in interstitial disease characteristic of edema. There is increased atelectasis in t he left base. Signer Name: Salazar Torres MD Signed: 07/05/2019 3:36 AM Workstation Name: [id number]
[2019-07-05 03:45] LABS: Calcium 10.3 mg/dL (8.4-10.2)
[2019-07-05] MEDS: INSULIN LISPRO 100 UNIT/ML SUB-Q SCH ×4 (04:25→17:45)
[2019-07-05 06:13] LABS: ABG Base Excess -0.3 mmol/L (-2.0-3.0); ABG HCO3 24.3 mmol/L (20.0-26.0); ABG Methemoglobin 0.6 % (0.0-1.5); ABG Oxygen Saturation 96.8 % (95.0-99.0); ABG PCO2 39.6 mm Hg; ABG PH 7.405 pH Units (7.350-7.450); ABG PO2 86.5 mm Hg (80.0-90.0)
[2019-07-05 06:31] LABS: Calcium 10.5 mg/dL (8.4-10.2)
[2019-07-05 10:12] LABS: Basophils % (Auto) 0.2 % (0.0-1.8); Eosinophils # (Auto) 0.2 K/mm3 (0.0-0.4); Eosinophils % (Auto) 1.1 % (0.0-4.3); Hemoglobin 12.1 gm/dl (10.1-14.3); Lymphocytes # (Auto) 1.3 K/mm3 (1.2-5.4); Mean Corpuscular HGB Conc 32 % (30-34); Mean Corpuscular Volume 88 fl (79-97); Monocytes # (Auto) 1.1 K/mm3 (0.0-0.8); Monocytes % (Auto) 6.3 % (0.0-7.3); Platelet Count 275 K/mm3 (140-440); Red Cell Distribution Width 18.1 % (13.2-15.2)
[2019-07-05] MEDS ORDERED: FAMOTIDINE 20 MG/2 ML INJ IV ONE (10:35)
[2019-07-05] MEDS: HEPARIN 5,000 UNIT/1 ML VIAL SUB-Q SCH ×2 (10:35→22:17)
[2019-07-05] MEDS ORDERED: HEPARIN 5,000 UNIT/1 ML VIAL ONE ×2 (10:35→22:08)
[2019-07-05] MEDS: FAMOTIDINE 20 MG/2 ML INJ IV SCH (10:41)
[2019-07-05] MEDS: CEFEPIME/NS 1 GM/100 ML 1 GM/100 ML BAG IV SCH (10:43)
--- NOTE | 2019-07-05 11:18 | Consultation ---
History of Present Illness - Reason for Consult Consult date: 07/05/19 Sepsis Requesting physician: ELISEO ESPINOZA - History of Present Illness The patient is a 59 yo F with ESRD on HD, diabetes, HTN, CHF, seizure, bipolar, depression and was recently hospitalized with altered mental status and found to have leukocytosis. She was seen by us and was treated with empiric cefepime and vancomycin. Possible pneumonia was considered and she received about 8 days of cefepime which was supposed to continue. 07/02/2019 and she was also found to have Coag negative staph bacteremia treated with 7 days of IV vancomycin pending 07/02/2019. She was discharged from the hospital on 06/30/2019 and now readmitted on 07/03/2019 with complaints of hypoxia and respiratory distress noted at her retirement. She has remained afebrile. Currently on the vent, in ER, awaiting ICU bed. Review of Systems: limited due to vent, intubated Past History Past Medical History: other (As noted in HPI, Bipolar, depression, early dementia.) Past Surgical History: Other (Tubal ligation, fistula left arm) Social history: other (Resident of [facility]) Medications and Allergies Allergies Allergy/AdvReac Type Severity Reaction Status Date / Time No Known Allergies Allergy Verified 07/03/19 10:58 Home Medications Medication Instructions Recorded Confirmed Last Taken Type Amlodipine Besylate [Norvasc] 10 mg PO DAILY 06/24/19 07/04/19 Unknown History AtorvaSTATin [Lipitor] 20 mg PO QHS 06/24/19 07/04/19 Unknown History Bumetanide 1 mg PO DAILY 06/24/19 07/04/19 Unknown History Cinacalcet HCl 30 mg PO DAILY 06/24/19 07/04/19 Unknown History Divalproex Sodium [Depakote 500 mg PO BID 06/24/19 07/04/19 Unknown History Sprinkle] Lispro Insulin [HumaLOG] 0 - 200 unit SQ ACHS 06/24/19 07/04/19 Unknown History Vit B Comp No.3/Folic/C/Biotin 1 each PO DAILY 06/24/19 07/04/19 Unknown History [Nephro-Umu Rx Tablet] carvediloL [Coreg] 25 mg PO BID 06/24/19 07/04/19 Unknown History hydrALAZINE [Apresoline TAB] 50 mg PO Q8HR 06/24/19 07/04/19 Unknown History ALBUTEROL NEB's [Proventil 0.083% 2.5 mg IH TIDRT #30 nebu 06/30/19 07/04/19 Unknown Rx NEBS] Lactulose [Cephulac] 20 gm PO Q8HR oral.liqd 06/30/19 07/04/19 Unknown Rx Sevelamer Carbonate [Renvela] 800 mg PO TIDWM tablet 06/30/19 07/04/19 Unknown Rx risperiDONE [RisperDAL] 0.5 mg PO BID tablet 06/30/19 07/04/19 Unknown Rx Active Meds: Active Medications Albumin Human (Alburx 25% (Albumin)) 25 gm IV FEDE PRN PRN Reason: Hypotension Dextrose (D50w (25gm) Syringe) 0 ml IV Q30MIN PRN; Protocol PRN Reason: Hypoglycemia Famotidine (Pepcid) 20 mg IV DAILY YANG Last Admin: 07/05/19 10:41 Dose: 20 mg Documented by: Heparin Sodium (Porcine) (Heparin) 5,000 unit SUB-Q Q12HR YANG Last Admin: 07/05/19 10:35 Dose: 5,000 unit Documented by: Hydrophilic Ointment (Vaseline Lip Therapy) 1 applic TP Q2HR PRN PRN Reason: Dry Lips Fentanyl Citrate (Fentanyl Drip Premix) 2,000 mcg in 100 mls @ 2.608 mls/hr IV TITR YANG; Protocol Last Titration: 07/04/19 18:10 Dose: Infused Documented by: Midazolam HCl 100 mg/ Sodium (Chloride) 100 mls @ 2 mls/hr IV TITR YANG; Protocol Last Titration: 07/04/19 18:05 Dose: 2 mg/hr, 2 mls/hr Documented by: Cefepime HCl (Cefepime/Ns 1 Gm/100 Ml) 1 gm in 100 mls @ 200 mls/hr IV Q24HR YANG; Protocol Last Admin: 07/05/19 10:43 Dose: 200 mls/hr Documented by: Insulin Human Lispro (Humalog) 0 unit SUB-Q Q6HR YANG; Protocol Last Admin: 07/05/19 07:47 Dose: Not Given Documented by: Midazolam HCl (Versed) 2 mg IV Q10MIN PRN PRN Reason: Sedation Multi-Ingred Cream/Lotion/Oil/Oint (Artificial Tears Ophth Oint) 1 applic OU Q4HR PRN PRN Reason: Dry Eye(s) Sodium Chloride (Sodium Chloride Flush Syringe 10 Ml) 10 ml IV BID YANG Last Admin: 07/04/19 22:20 Dose: 10 ml Documented by: Sodium Chloride (Sodium Chloride Flush Syringe 10 Ml) 10 ml IV PRN PRN PRN Reason: LINE FLUSH Last Admin: 07/05/19 10:42 Dose: 10 ml Documented by: Physical Examination - Physical Exam Narrative exam: Physical Exam: Constitutional: sedated, intubated Head, Ears, Nose: Normocephalic, atraumatic. External ears, nose normal Eyes: Conjunctivae/corneas clear. No icterus. No ptosis. Neck: intubated Oral: intubated Cardiovascular: S1, S2 normal. Respiratory: Good air entry, clear to auscultation bilaterally GI: Soft, non-tender; bowel sounds normal. No peritoneal signs Musculoskeletal: No pedal edema, no cyanosis. Skin: Sacral decubitus Hem/Lymphatic: No palpable cervical or supraclavicular nodes. No lymphangitis Psych: no agitation Neurological: sedated, intubated, on vent - Constitutional Vitals: Vital Signs Temp Pulse Resp BP Pulse Ox 98.8 F 86 14 136/60 99 07/05/19 10:50 07/05/19 10:50 07/05/19 10:50 07/05/19 10:50 07/05/19 10:50 Temperature -Last 24 Hours Temperature 98.8 F Temperature 98.7 F Results - Labs CBC & Chem 7: 07/05/19 09:06 07/05/19 05:57 Labs: Abnormal lab results 07/04/19 07/05/19 07/05/19 Range/Units 17:56 01:45 03:07 WBC 18.7 H (4.5-11.0) K/mm3 RDW 17.7 H (13.2-15.2) % Lymph % (Auto) 7.6 L (13.4-35.0) % [place] # 1.2 H (0.0-0.8) K/mm3 Seg Neutrophils % 84.2 H (40.0-70.0) % Seg Neutrophils # 15.7 H (1.8-7.7) K/mm3 ABG Hemoglobin (12.0-16.0) gm/dl Oxyhemoglobin (95.0-99.0) % Chloride (98-107) mmol/L Carbon Dioxide (22-30) mmol/L BUN (7-17) mg/dL Creatinine (0.7-1.2) mg/dL Glucose (65-100) mg/dL POC Glucose 273 H 148 H (70-105) Calcium (8.4-10.2) mg/dL Phosphorus (2.5-4.5) mg/dL 07/05/19 07/05/19 07/05/19 Range/Units 03:07 05:57 06:50 WBC (4.5-11.0) K/mm3 RDW (13.2-15.2) % Lymph % (Auto) (13.4-35.0) % [place] # (0.0-0.8) K/mm3 Seg Neutrophils % (40.0-70.0) % Seg Neutrophils # (1.8-7.7) K/mm3 ABG Hemoglobin 11.7 L (12.0-16.0) gm/dl Oxyhemoglobin 94.6 L (95.0-99.0) % Chloride 94.7 L 95.6 L (98-107) mmol/L Carbon Dioxide 19 L (22-30) mmol/L BUN 23 H 26 H (7-17) mg/dL Creatinine 2.7 H 2.9 H (0.7-1.2) mg/dL Glucose 161 H 179 H (65-100) mg/dL POC Glucose (70-105) Calcium 10.3 H 10.5 H (8.4-10.2) mg/dL Phosphorus 5.20 H D (2.5-4.5) mg/dL 07/05/19 07/05/19 Range/Units 07:52 09:06 WBC 16.8 H (4.5-11.0) K/mm3 RDW 18.1 H (13.2-15.2) % Lymph % (Auto) 8.0 L (13.4-35.0) % [place] # 1.1 H (0.0-0.8) K/mm3 Seg Neutrophils % 84.4 H (40.0-70.0) % Seg Neutrophils # 14.2 H (1.8-7.7) K/mm3 ABG Hemoglobin (12.0-16.0) gm/dl Oxyhemoglobin (95.0-99.0) % Chloride (98-107) mmol/L Carbon Dioxide (22-30) mmol/L BUN (7-17) mg/dL Creatinine (0.7-1.2) mg/dL Glucose (65-100) mg/dL POC Glucose 195 H (70-105) Calcium (8.4-10.2) mg/dL Phosphorus (2.5-4.5) mg/dL - Imaging and Cardiology Chest x-ray: report reviewed, image reviewed (Chest x-ray does not show any tu dence of pneumonia) Assessment and Plan Cultures: 07/03/2019 blood culture: No growth 07/03/2019 tracheal aspirate culture: Usual respiratory leelee A/P: 59 yo F with ESRD on HD, diabetes, HTN, CHF, seizure, bipolar, depression and wa s recently hospitalized with altered mental status and found to have leukocytosis, now readmitted with respiratory distress and hypoxia: #Neutrophilic leukocytosis: source unclear. #Acute respiratory failure: on the vent. Likely CHF, no evidence of pneumonia. #ESRD on HD: renally dose abx. #Sacral decubitus ulcer: wound care consult. Recs: continue empiric IV Cefepime and Vancomycin for now, renally adjusted will need CT abdomen pelvis with IV contrast to eval for source, order placed wound care consult Marilu Cervantes MD, FACP [facility] ([facility] C: [phone] O: [phone] F: [phone]
--- NOTE | 2019-07-05 11:42 | Progress Note ---
Assessment and Plan Assessment and plan: Acute hypoxic respiratory failure -Continue mechanical ventilation per pulmonary. -Patient failed weaning this morning. Toxic metabolic encephalopathy -Neuro checks -Continue to treat underlying causes. Sepsis -CXR unremarkable -Leukocytosis present -Continue antibiotics -Blood cultures negative x24 hours. ESRD on HD -M/W/F -Avoid nephrotoxic agents -Renal dose all meds -Nephrology following Congestive heart Failure -BNP >11842 -Monitor input and output. -Cardiology following and reports no evidence of volume overload Hypertension -Continue to monitor BP -Patient is normotensive off blood pressure medications. Insulin-dependent diabetes -POC BG monitoring -SSI coverage prn Hx Seizure -Continue anticonvulsant meds -Seizure precautions. DVT PPX -On Heparin The high probability of a clinically significant, sudden or life threatening deterioration of the [respiratory] system(s) required my full and direct attention, intervention and personal management. The aggregate critical care time was [33] minutes. This time is in addition to time spent performing reported procedures but includes the following: [x] Data Review and interpretation [x] Patient assessment and monitoring of vital signs [x] Documentation [x] Medication orders and management History Interval history: Patient remains orally intubated Hospitalist Physical - Constitutional Vitals: Temp Pulse Resp BP Pulse Ox 98.8 F 86 14 136/60 98 07/05/19 10:50 07/05/19 10:50 07/05/19 11:21 07/05/19 10:50 07/05/19 11:21 General appearance: Present: other (intubated on the vent) - EENT Eyes: Present: PERRL, EOM intact ENT: hearing intact, clear oral mucosa, dentition normal - Neck Neck: Present: supple, normal ROM - Respiratory Respiratory effort: normal Respiratory: bilateral: CTA - Cardiovascular Rhythm: regular Heart Sounds: Present: S1 & S2. Absent: gallop, rub - Extremities Extremities: no ischemia, No edema, Full ROM - Abdominal General gastrointestinal: soft, non-tender, non-distended, normal bowel sounds - Integumentary Integumentary: Present: clear, warm, dry - Neurologic Neurologic: CNII-XII intact, moves all extremities DANIELLE score - Danielle Score Age > 65: (0) No Aspirin use within the Past 7 Days: (0) No 3 or more CAD Risk Factors: (1) Yes 2 or more Angina events in past 24 hrs: (0) No Known CAD with more than 50% Stenosis: (0) No Elevated Cardiac Markers: (1) Yes ST Deviation Greater than 0.5mm: (0) No DANIELLE Score: 2 Results - Labs CBC & Chem 7: 07/05/19 09:06 07/05/19 05:57 Labs: Laboratory Last Values WBC 16.8 K/mm3 (4.5-11.0) H 07/05/19 09:06 RBC 4.30 M/mm3 (3.65-5.03) 07/05/19 09:06 Hgb 12.1 gm/dl (10.1-14.3) 07/05/19 09:06 Hct 38.0 % (30.3-42.9) 07/05/19 09:06 MCV 88 fl (79-97) 07/05/19 09:06 MCH 28 pg (28-32) 07/05/19 09:06 MCHC 32 % (30-34) 07/05/19 09:06 RDW 18.1 % (13.2-15.2) H 07/05/19 09:06 Plt Count 275 K/mm3 (140-440) 07/05/19 09:06 Lymph % (Auto) 8.0 % (13.4-35.0) L 07/05/19 09:06 [place] % (Auto) 6.3 % (0.0-7.3) 07/05/19 09:06 Eos % (Auto) 1.1 % (0.0-4.3) 07/05/19 09:06 Baso % (Auto) 0.2 % (0.0-1.8) 07/05/19 09:06 Lymph # 1.3 K/mm3 (1.2-5.4) 07/05/19 09:06 [place] # 1.1 K/mm3 (0.0-0.8) H 07/05/19 09:06 Eos # 0.2 K/mm3 (0.0-0.4) 07/05/19 09:06 Baso # 0.0 K/mm3 (0.0-0.1) 07/05/19 09:06 Seg Neutrophils % 84.4 % (40.0-70.0) H 07/05/19 09:06 Seg Neutrophils # 14.2 K/mm3 (1.8-7.7) H 07/05/19 09:06 ABG pH 7.405 pH Units (7.350-7.450) 07/05/19 06:50 ABG pCO2 39.6 mm Hg 07/05/19 06:50 ABG pO2 86.5 mm Hg (80.0-90.0) 07/05/19 06:50 ABG HCO3 24.3 mmol/L (20.0-26.0) 07/05/19 06:50 ABG O2 Saturation 96.8 % (95.0-99.0) 07/05/19 06:50 ABG O2 Content 15.7 (0.0-44) 07/05/19 06:50 ABG Base Excess -0.3 mmol/L (-2.0-3.0) 07/05/19 06:50 ABG Hemoglobin 11.7 gm/dl (12.0-16.0) L 07/05/19 06:50 ABG Carboxyhemoglobin 1.7 % (0.0-5.0) 07/05/19 06:50 ABG Methemoglobin 0.6 % (0.0-1.5) 07/05/19 06:50 Oxyhemoglobin 94.6 % (95.0-99.0) L 07/05/19 06:50 FiO2 30 % 07/05/19 06:50 Sodium 137 mmol/L (137-145) 07/05/19 05:57 Potassium 4.3 mmol/L (3.6-5.0) 07/05/19 05:57 Chloride 95.6 mmol/L (98-107) L 07/05/19 05:57 Carbon Dioxide 19 mmol/L (22-30) L 07/05/19 05:57 Anion Gap 27 mmol/L 07/05/19 05:57 BUN 26 mg/dL (7-17) H 07/05/19 05:57 Creatinine 2.9 mg/dL (0.7-1.2) H 07/05/19 05:57 Estimated GFR 17 ml/min 07/05/19 05:57 BUN/Creatinine Ratio 9 % 07/05/19 05:57 Glucose 179 mg/dL (65-100) H 07/05/19 05:57 POC Glucose 195 (70-105) H 07/05/19 07:52 Hemoglobin A1c 7.0 % (4-6) H 07/03/19 01:00 Lactic Acid 1.20 mmol/L (0.7-2.0) 07/03/19 04:13 Calcium 10.5 mg/dL (8.4-10.2) H 07/05/19 05:57 Phosphorus 5.20 mg/dL (2.5-4.5) H D 07/05/19 05:57 Total Bilirubin 0.30 mg/dL (0.1-1.2) 07/03/19 01:00 AST 22 units/L (5-40) 07/03/19 01:00 ALT 9 units/L (7-56) 07/03/19 01:00 Alkaline Phosphatase 101 units/L (35-129) 07/03/19 01:00 Ammonia 35.0 umol/L (25-60) 07/03/19 01:58 NT-Pro-B Natriuret Pep > 38749 pg/mL (0-900) H 07/03/19 01:00 Total Protein 7.0 g/dL (6.3-8.2) 07/03/19 01:00 Albumin 2.5 g/dL (3.9-5) L 07/03/19 01:00 Albumin/Globulin Ratio 0.6 % 07/03/19 01:00 TSH 2.600 mlU/mL (0.270-4.200) 07/03/19 01:00 Urine Color Yellow (Yellow) 07/03/19 Unknown Urine Turbidity Clear (Clear) 07/03/19 Unknown Urine pH 6.0 (5.0-7.0) 07/03/19 Unknown Ur Specific [place] 1.012 (1.003-1.030) 07/03/19 Unknown Urine Protein >500 mg/dL (Negative) 07/03/19 Unknown Urine Glucose (UA) >=500 mg/dL (Negative) 07/03/19 Unknown Urine Ketones Neg mg/dL (Negative) 07/03/19 Unknown Urine Blood Neg (Negative) 07/03/19 Unknown Urine Nitrite Neg (Negative) 07/03/19 Unknown Ur Reducing Substances Not Reportable 07/03/19 Unknown Urine Bilirubin Neg (Negative) 07/03/19 Unknown Urine Ictotest Not Reportable 07/03/19 Unknown Urine Urobilinogen < 2.0 mg/dL (<2.0) 07/03/19 Unknown Ur Leukocyte Esterase Neg (Negative) 07/03/19 Unknown Urine WBC (Auto) 1.0 /HPF (0.0-6.0) 07/03/19 Unknown Urine RBC (Auto) 2.0 /HPF (0.0-6.0) 07/03/19 Unknown U Epithel Cells (Auto) < 1.0 /HPF (0-13.0) 07/03/19 Unknown Urine Mucus Few /HPF 07/03/19 Unknown Active Medications - Current Medications Current Medications: Generic Name Dose Route Start Last Admin Trade Name Freq PRN Reason Stop Dose Admin Albumin Human 25 gm 07/04/19 12:37 Alburx 25% (Albumin) IV FEDE PRN Hypotension Dextrose 0 ml 07/03/19 04:34 D50w (25gm) Syringe IV Q30MIN PRN Hypoglycemia Protocol Famotidine 20 mg 07/03/19 10:00 07/05/19 10:41 Pepcid IV 20 mg DAILY YANG Administration Heparin Sodium (Porcine) 5,000 unit 07/03/19 10:00 07/05/19 10:35 Heparin SUB-Q 5,000 unit Q12HR YANG Administration Hydrophilic Ointment 1 applic 07/03/19 00:53 Vaseline Lip Therapy TP Q2HR PRN Dry Lips Fentanyl Citrate 2,000 mcg in 100 mls @ 2.608 mls/hr 07/03/19 01:00 07/04/19 18:10 Fentanyl Drip Premix IV Infused TITR YANG Titration Protocol 1 MCG/KG/HR Midazolam HCl 100 mg/ Sodium 100 mls @ 2 mls/hr 07/03/19 02:15 07/04/19 18:05 Chloride IV 2 mg/hr TITR YANG 2 mls/hr Titration Protocol 2 MG/HR Cefepime HCl 1 gm in 100 mls @ 200 mls/hr 07/03/19 10:00 07/05/19 10:43 Cefepime/Ns 1 Gm/100 Ml IV 200 mls/hr Q24HR YANG Administration Protocol Insulin Human Lispro 0 unit 07/03/19 06:00 07/05/19 07:47 Humalog SUB-Q Not Given Q6HR YANG Protocol Midazolam HCl 2 mg 01/24/20 01:50 Versed IV Q10MIN PRN Sedation Multi-Ingred Cream/Lotion/Oil/Oint 1 applic 07/03/19 00:53 Artificial Tears Ophth Oint OU Q4HR PRN Dry Eye(s) Sodium Chloride 10 ml 07/03/19 10:00 07/05/19 11:19 Sodium Chloride Flush Syringe 10 Ml IV 10 ml BID YANG Administration Sodium Chloride 10 ml 07/03/19 04:34 07/05/19 10:42 Sodium Chloride Flush Syringe 10 Ml IV 10 ml PRN PRN Administration LINE FLUSH
--- NOTE | 2019-07-05 11:46 | Progress Note ---
Assessment and Plan Hypoxic respiratory failure ESRD on HD Altered mental status Hx of chronically elevated troponin dating back to 04/2018 at [facility] MPI performed November 2018 revealed no ischemia preserved LVEF by echo 06/25/2019 Hypertension Diabetes Hx of seizure disorder Recommend: continue current therapy. Subjective Date of service: 07/05/19 Principal diagnosis: Acute hypoxemic resp failure; AMS; Severe Sepsis; ESRD; CHF; HTN; Seizure Interval history: No acute events Objective Vital Signs Temp Pulse Resp BP BP Pulse Ox 07/05/19 11:21 14 98 07/05/19 10:50 98.8 F 86 14 136/60 99 07/05/19 10:30 84 14 137/60 95 07/05/19 10:00 87 14 143/60 95 07/05/19 09:30 86 14 139/61 95 07/05/19 09:00 83 14 138/60 98 07/05/19 08:30 83 14 135/58 98 07/05/19 08:08 83 149/61 100 07/05/19 08:00 83 12 145/69 98 07/05/19 07:30 82 14 138/67 97 07/05/19 07:25 14 97 07/05/19 07:05 98.7 F 84 14 138/65 14 L 07/05/19 07:00 81 14 138/65 96 07/05/19 06:30 81 14 138/67 96 07/05/19 06:00 87 18 144/72 98 07/05/19 05:30 85 14 141/68 96 07/05/19 05:00 85 14 143/67 98 07/05/19 04:30 82 14 134/65 94 07/05/19 04:00 82 13 136/65 100 07/05/19 03:30 83 13 140/65 94 07/05/19 03:00 85 14 143/67 98 07/05/19 02:30 82 14 128/60 97 07/05/19 02:00 80 14 128/59 100 07/05/19 01:30 80 14 132/59 98 07/05/19 01:00 78 13 127/56 98 07/05/19 00:30 78 13 131/57 98 07/05/19 00:00 77 13 134/58 98 07/04/19 23:30 76 14 136/59 98 07/04/19 23:00 74 13 136/58 98 07/04/19 22:30 74 13 136/58 98 07/04/19 22:00 75 13 144/63 98 07/04/19 21:30 74 13 142/63 98 07/04/19 21:00 74 12 134/61 95 07/04/19 20:30 73 13 133/60 96 07/04/19 20:00 76 12 133/62 98 07/04/19 19:46 74 13 126/57 95 07/04/19 19:30 74 12 119/57 98 07/04/19 19:00 75 12 129/61 100 07/04/19 18:30 75 12 135/63 99 07/04/19 18:00 75 18 144/66 100 07/04/19 17:42 76 17 124/60 100 07/04/19 16:37 74 113/58 97 07/04/19 13:36 72 87/54 07/04/19 13:15 72 92/54 07/04/19 13:00 72 91/54 07/04/19 12:45 72 101/58 07/04/19 12:30 72 100/56 07/04/19 12:15 73 91/54 07/04/19 12:00 75 97/55 - Physical Examination General: Other (intubated and mechanically ventilated) Neck: Positive: neck supple Cardiac: Positive: Reg Rate and Rhythm Lungs: Positive: Rhonchi Abdomen: Positive: Soft Extremities: Absent: edema - Labs and Meds CBC 07/05/19 07/05/19 Range/Units 03:07 09:06 WBC 18.7 H 16.8 H (4.5-11.0) K/mm3 RBC 4.22 4.30 (3.65-5.03) M/mm3 Hgb 11.8 12.1 (10.1-14.3) gm/dl Hct 37.2 38.0 (30.3-42.9) % Plt Count 279 275 (140-440) K/mm3 Lymph # 1.4 1.3 (1.2-5.4) K/mm3 [place] # 1.2 H 1.1 H (0.0-0.8) K/mm3 Eos # 0.3 0.2 (0.0-0.4) K/mm3 Baso # 0.0 0.0 (0.0-0.1) K/mm3 Comprehensive Metabolic Panel 07/05/19 07/05/19 Range/Units 03:07 05:57 Sodium 139 137 (137-145) mmol/L Potassium 4.1 4.3 (3.6-5.0) mmol/L Chloride 94.7 L 95.6 L (98-107) mmol/L Carbon Dioxide 24 19 L (22-30) mmol/L BUN 23 H 26 H (7-17) mg/dL Creatinine 2.7 H 2.9 H (0.7-1.2) mg/dL Glucose 161 H 179 H (65-100) mg/dL Calcium 10.3 H 10.5 H (8.4-10.2) mg/dL - Imaging and Cardiology EKG: report reviewed
--- NOTE | 2019-07-05 13:40 | Progress Note ---
Assessment and Plan Acute hypoxic respiratory failure on mechanical ventilation Acute metabolic encephalopathy ESRD on HD HTN Sepsis Hx of seizures DM Type 2 on insulin Hypercalemia Plan: - S/p HD yesterday for UF and clearance, only able to remove 1 liter due to hypotension - No acute indication for HD today - HD tomorrow for UF and clearance - PRN albumin for intradialytic hypotension - Assess dialysis needs daily - No indication for Epogen - ID on board, on Abx, follow cultures, ordered CT ABD pelvis w/o contrast - Currently Intubated on Vent - as per Pulmonology - Strict I&O - Renally dose meds - This pt undergoes outpatient HD at [facility] every MWF - Renal plan d/w Dr Wray Subjective Date of service: 07/05/19 Principal diagnosis: Acute hypoxemic resp failure; AMS; Severe Sepsis; ESRD; CHF; HTN; Seizure Interval history: Pt seen in ED intubated on ventilator, off sedation, doesn't follow commands, no family at bedside Objective - Vital Signs Vital signs: Vital Signs - 12hr 07/05/19 07/05/19 07/05/19 02:00 02:30 03:00 Temperature Pulse Rate 80 82 85 Respiratory 14 14 14 Rate Blood Pressure 128/59 128/60 143/67 Blood Pressure [Right] O2 Sat by Pulse 100 97 98 Oximetry 07/05/19 07/05/19 07/05/19 03:30 04:00 04:30 Temperature Pulse Rate 83 82 82 Respiratory 13 13 14 Rate Blood Pressure 140/65 136/65 134/65 Blood Pressure [Right] O2 Sat by Pulse 94 100 94 Oximetry 07/05/19 07/05/19 07/05/19 05:00 05:30 06:00 Temperature Pulse Rate 85 85 87 Respiratory 14 14 18 Rate Blood Pressure 143/67 141/68 144/72 Blood Pressure [Right] O2 Sat by Pulse 98 96 98 Oximetry 07/05/19 07/05/19 07/05/19 06:30 07:00 07:05 Temperature 98.7 F Pulse Rate 81 81 84 Respiratory 14 14 14 Rate Blood Pressure 138/67 138/65 Blood Pressure 138/65 [Right] O2 Sat by Pulse 96 96 14 L Oximetry 07/05/19 07/05/19 07/05/19 07:25 07:30 08:00 Temperature Pulse Rate 82 83 Respiratory 14 14 12 Rate Blood Pressure 138/67 145/69 Blood Pressure [Right] O2 Sat by Pulse 97 97 98 Oximetry 07/05/19 07/05/19 07/05/19 08:08 08:30 09:00 Temperature Pulse Rate 83 83 83 Respiratory 14 14 Rate Blood Pressure 149/61 135/58 138/60 Blood Pressure [Right] O2 Sat by Pulse 100 98 98 Oximetry 07/05/19 07/05/19 07/05/19 09:30 10:00 10:30 Temperature Pulse Rate 86 87 84 Respiratory 14 14 14 Rate Blood Pressure 139/61 143/60 137/60 Blood Pressure [Right] O2 Sat by Pulse 95 95 95 Oximetry 07/05/19 07/05/19 07/05/19 10:50 11:21 12:47 Temperature 98.8 F Pulse Rate 86 86 Respiratory 14 14 Rate Blood Pressure 141/60 Blood Pressure 136/60 [Right] O2 Sat by Pulse 99 98 98 Oximetry - General Appearance General appearance: intubated EENT: ATNC Neck: no JVD Respiratory: Present: Decreased Breath Sounds Cardiology: regular, S1S2, other (ACCESS: Left AVF + thrill and bruit noted) Gastrointestinal: normoactive bowel sounds (orogastric tube in place) Integumentary: warm and dry Neurologic: other (intubated on ventilator, off sedation, doesn't follow commands) Musculoskeletal: other (trace edema BLE) Psychiatric: other (unable to assess) - Lab 07/05/19 09:06 07/05/19 05:57 Most recent lab results ABG pH 7.405 pH Units (7.350-7.450) 07/05/19 06:50 ABG pCO2 39.6 mm Hg 07/05/19 06:50 ABG pO2 86.5 mm Hg (80.0-90.0) 07/05/19 06:50 ABG HCO3 24.3 mmol/L (20.0-26.0) 07/05/19 06:50 ABG O2 Saturation 96.8 % (95.0-99.0) 07/05/19 06:50 Calcium 10.5 mg/dL (8.4-10.2) H 07/05/19 05:57 Phosphorus 5.20 mg/dL (2.5-4.5) H D 07/05/19 05:57 Medications & Allergies - Medications Allergies/Adverse Reactions: Allergies No Known Allergies Allergy (Verified 07/03/19 10:58) Home Medications: Home Medications Medication Instructions Recorded Confirmed Last Taken Type Amlodipine Besylate [Norvasc] 10 mg PO DAILY 06/24/19 07/04/19 Unknown History AtorvaSTATin [Lipitor] 20 mg PO QHS 06/24/19 07/04/19 Unknown History Bumetanide 1 mg PO DAILY 06/24/19 07/04/19 Unknown History Cinacalcet HCl 30 mg PO DAILY 06/24/19 07/04/19 Unknown History Divalproex Sodium [Depakote 500 mg PO BID 06/24/19 07/04/19 Unknown History Sprinkle] Lispro Insulin [HumaLOG] 0 - 200 unit SQ ACHS 06/24/19 07/04/19 Unknown History Vit B Comp No.3/Folic/C/Biotin 1 each PO DAILY 06/24/19 07/04/19 Unknown History [Nephro-Umu Rx Tablet] carvediloL [Coreg] 25 mg PO BID 06/24/19 07/04/19 Unknown History hydrALAZINE [Apresoline TAB] 50 mg PO Q8HR 06/24/19 07/04/19 Unknown History ALBUTEROL NEB's [Proventil 0.083% 2.5 mg IH TIDRT #30 nebu 06/30/19 07/04/19 Unknown Rx NEBS] Lactulose [Cephulac] 20 gm PO Q8HR oral.liqd 06/30/19 07/04/19 Unknown Rx Sevelamer Carbonate [Renvela] 800 mg PO TIDWM tablet 06/30/19 07/04/19 Unknown Rx risperiDONE [RisperDAL] 0.5 mg PO BID tablet 06/30/19 07/04/19 Unknown Rx Active Medications: Generic Name Dose Route Start Last Admin Trade Name Freq PRN Reason Stop Dose Admin Albumin Human 25 gm 07/04/19 12:37 Alburx 25% (Albumin) IV FEDE PRN Hypotension Dextrose 0 ml 07/03/19 04:34 D50w (25gm) Syringe IV Q30MIN PRN Hypoglycemia Protocol Famotidine 20 mg 07/03/19 10:00 07/05/19 10:41 Pepcid IV 20 mg DAILY YANG Administration Heparin Sodium (Porcine) 5,000 unit 07/03/19 10:00 07/05/19 10:35 Heparin SUB-Q 5,000 unit Q12HR YANG Administration Hydrophilic Ointment 1 applic 07/03/19 00:53 Vaseline Lip Therapy TP Q2HR PRN Dry Lips Fentanyl Citrate 2,000 mcg in 100 mls @ 2.608 mls/hr 07/03/19 01:00 07/04/19 18:10 Fentanyl Drip Premix IV Infused TITR YANG Titration Protocol 1 MCG/KG/HR Midazolam HCl 100 mg/ Sodium 100 mls @ 2 mls/hr 07/03/19 02:15 07/04/19 18:05 Chloride IV 2 mg/hr TITR YANG 2 mls/hr Titration Protocol 2 MG/HR Cefepime HCl 1 gm in 100 mls @ 200 mls/hr 07/03/19 10:00 07/05/19 10:43 Cefepime/Ns 1 Gm/100 Ml IV 200 mls/hr Q24HR YANG Administration Protocol Insulin Human Lispro 0 unit 07/03/19 06:00 07/05/19 13:27 Humalog SUB-Q Not Given Q6HR [facility] Protocol Midazolam HCl 2 mg 07/03/19 01:50 Versed IV Q10MIN PRN Sedation Multi-Ingred Cream/Lotion/Oil/Oint 1 applic 07/03/19 00:53 Artificial Tears Ophth Oint OU Q4HR PRN Dry Eye(s) Sodium Chloride 10 ml 07/03/19 10:00 07/05/19 11:19 Sodium Chloride Flush Syringe 10 Ml IV 10 ml BID YANG Administration Sodium Chloride 10 ml 07/03/19 04:34 07/05/19 10:42 Sodium Chloride Flush Syringe 10 Ml IV 10 ml PRN PRN Administration LINE FLUSH
[2019-07-05] MEDS ORDERED: SODIUM CHLORIDE 0.9% 100 ML IV PRN (13:41)
--- NOTE | 2019-07-05 16:02 | Progress Note ---
Assessment and Plan Acute hypoxemic respiratory failure Toxic metabolic encephalopathy Severe Sepsis ESRD on HD Congestive heart Failure Accelerated Hypertension H/O Seizure - keep set rate on MVS at 12 - sedation target for RASS 0 to -1 - VAP bundle addressed (aspiration precautions, HOB>40 degrees) - continue lung protective strategies - continue to wean FiO2 for O2 sats >90% - continue bronchodilators with pulmonary hygiene per RT - Daily SAT's and SBT assessment as tolerated - continue enteral nutrition at goal rate as tolerated - AED's per neurology recommendations - HD/UF per nephrology rec's for toxin and volume clearance - continue Empiric antibiotics therapies (de-escalate based on cultures and clinical condition) - ID evaluation ongoing - VTE prophylaxis with heparin SQ - continue stress ulcer prophylaxis with Famotidine - accuchecks with glycemic control for SSI (While critically ill target blood glucose of 140-180 mg/dL; avoid hypoglycemia) - mobility protocols for pressure ulcer prevention - Monitor hemodynamics closely - Fluid restrictive strategies as tolerated by hemodynamics and by her renal function (patient has a history of cardiomyopathy and has elevated BNP at this time) - continue to avoid nephrotoxins, dose all medications fro CrCL and GFR - Monitor electrolyte profile closely and replete as indicated - Chronic home medications, resume as clinically indicated - continue other care per attending / other consultants ... re-evaluate in am & prn CONDITION: CRITICAL PROGNOSIS: GUARDED CODE STATUS: FULL CODE The high probability of a clinically significant, sudden or life-threatening deterioration of the [respiratory, cardiovascular, neurology, renal] system(s) required my full and direct attention, intervention and personal management. The aggregate critical care time was [32] minutes without overlap. Time includes spent on; [x] Data Review and interpretation [x] Patient assessment and monitoring of vital signs [x] Documentation [x] Medication orders and management Subjective Date of service: 07/05/19 Principal diagnosis: Acute hypoxemic resp failure; AMS; Severe Sepsis; ESRD; CHF; HTN; Seizure Interval history: Patient is seen today for: Acute hypoxemic respiratory failure; Toxic metabolic encephalopathy; Severe Sepsis; ESRD on HD; CHF; Accelerated Hypertension; H/O Seizure Seen and examined at bedside; 24hour events reviewed; nursing and respiratory care staff consulted; no adverse overnight events reported to me; resting pea cefully in bed; AMS is persistent; no emesis or overt aspiration; no seizures; tube feeds going; no high grade fevers Objective Vital Signs - 12hr 07/05/19 07/05/19 07/05/19 04:30 05:00 05:30 Temperature Pulse Rate 82 85 85 Respiratory 14 14 14 Rate Blood Pressure 134/65 143/67 141/68 Blood Pressure [Right] O2 Sat by Pulse 94 98 96 Oximetry 07/05/19 07/05/19 07/05/19 06:00 06:30 07:00 Temperature Pulse Rate 87 81 81 Respiratory 18 14 14 Rate Blood Pressure 144/72 138/67 138/65 Blood Pressure [Right] O2 Sat by Pulse 98 96 96 Oximetry 07/05/19 07/05/19 07/05/19 07:05 07:25 07:30 Temperature 98.7 F Pulse Rate 84 82 Respiratory 14 14 14 Rate Blood Pressure 138/67 Blood Pressure 138/65 [Right] O2 Sat by Pulse 14 L 97 97 Oximetry 07/05/19 07/05/19 07/05/19 08:00 08:08 08:30 Temperature Pulse Rate 83 83 83 Respiratory 12 14 Rate Blood Pressure 145/69 149/61 135/58 Blood Pressure [Right] O2 Sat by Pulse 98 100 98 Oximetry 07/05/19 07/05/19 07/05/19 09:00 09:30 10:00 Temperature Pulse Rate 83 86 87 Respiratory 14 14 14 Rate Blood Pressure 138/60 139/61 143/60 Blood Pressure [Right] O2 Sat by Pulse 98 95 95 Oximetry 07/05/19 07/05/19 07/05/19 10:30 10:50 11:00 Temperature 98.8 F Pulse Rate 84 86 88 Respiratory 14 14 16 Rate Blood Pressure 137/60 139/60 Blood Pressure 136/60 [Right] O2 Sat by Pulse 95 99 97 Oximetry 07/05/19 07/05/19 07/05/19 11:21 11:30 12:00 Temperature Pulse Rate 86 87 Respiratory 14 15 14 Rate Blood Pressure 140/59 146/61 Blood Pressure [Right] O2 Sat by Pulse 98 95 94 Oximetry 07/05/19 07/05/19 07/05/19 12:30 12:47 13:00 Temperature Pulse Rate 87 86 85 Respiratory 15 14 Rate Blood Pressure 141/60 141/60 147/60 Blood Pressure [Right] O2 Sat by Pulse 94 98 93 Oximetry 07/05/19 07/05/19 07/05/19 13:30 14:00 14:30 Temperature Pulse Rate 84 87 85 Respiratory 12 15 13 Rate Blood Pressure 147/66 140/66 146/65 Blood Pressure [Right] O2 Sat by Pulse 93 94 94 Oximetry 07/05/19 07/05/19 15:00 15:30 Temperature Pulse Rate 85 89 Respiratory 13 16 Rate Blood Pressure 140/65 140/67 Blood Pressure [Right] O2 Sat by Pulse 94 95 Oximetry Constitutional: appears uncomfortable, other (middle aged thin female, normocephalic riding set rate on MVS) Eyes: non-icteric ENT: oropharynx dry, other (ETT 23 cm JORY) Neck: supple, no lymphadenopathy, no JVD Effort: mildly labored Ascultation: Bilateral: diminished breath sounds, rhonchi Percussion: Bilateral: not dull Cardiovascular: regular rate and rhythm Gastrointestinal: normoactive bowel sounds, soft, non-tender, non-distended Integumentary: normal Extremities: no cyanosis, no edema, pink and warm, pulses normal Neurologic: unable to assess Psychiatric: other (unable to assess re: AMS) CBC and BMP: 07/09/19 04:29 07/09/19 04:29 ABG, PT/INR, D-dimer: ABG ABG pH 7.405 pH Units (7.350-7.450) 07/05/19 06:50 ABG pCO2 39.6 mm Hg 07/05/19 06:50 ABG pO2 86.5 mm Hg (80.0-90.0) 07/05/19 06:50 ABG O2 Saturation 96.8 % (95.0-99.0) 07/05/19 06:50 Abnormal lab findings: Abnormal Labs 07/03/19 07/03/19 07/03/19 01:00 01:00 01:00 WBC 17.9 H RDW 17.8 H Lymph % (Auto) 11.7 L Hart # 1.0 H Seg Neutrophils % 82.1 H Seg Neutrophils # 14.7 H ABG pH ABG pO2 ABG HCO3 ABG Base Excess ABG Hemoglobin Oxyhemoglobin Chloride 92.9 L Carbon Dioxide BUN 45 H Creatinine 5.3 H Glucose 229 H POC Glucose Hemoglobin A1c Calcium 10.5 H Phosphorus NT-Pro-B Natriuret Pep > 28370 H Albumin 2.5 L 07/03/19 07/03/19 07/03/19 01:00 01:35 04:30 WBC RDW Lymph % (Auto) Hart # Seg Neutrophils % Seg Neutrophils # ABG pH 7.555 H 7.489 H ABG pO2 65.4 L 149.9 H ABG HCO3 28.9 H 27.9 H ABG Base Excess 6.7 H 4.5 H ABG Hemoglobin Oxyhemoglobin 94.0 L Chloride Carbon Dioxide BUN Creatinine Glucose POC Glucose Hemoglobin A1c 7.0 H Calcium Phosphorus NT-Pro-B Natriuret Pep Albumin 07/03/19 07/03/19 07/03/19 12:10 17:35 23:59 WBC RDW Lymph % (Auto) Hart # Seg Neutrophils % Seg Neutrophils # ABG pH ABG pO2 ABG HCO3 ABG Base Excess ABG Hemoglobin Oxyhemoglobin Chloride Carbon Dioxide BUN Creatinine Glucose POC Glucose 246 H 163 H 112 H Hemoglobin A1c Calcium Phosphorus NT-Pro-B Natriuret Pep Albumin 07/04/19 07/04/19 07/04/19 04:24 04:56 04:56 WBC 17.3 H RDW 18.0 H Lymph % (Auto) 8.7 L Hart # 0.9 H Seg Neutrophils % 85.1 H Seg Neutrophils # 14.8 H ABG pH 7.496 H ABG pO2 74.0 L ABG HCO3 28.1 H ABG Base Excess 4.7 H ABG Hemoglobin Oxyhemoglobin 93.9 L Chloride 95.5 L Carbon Dioxide BUN 26 H Creatinine 3.4 H Glucose 145 H POC Glucose Hemoglobin A1c Calcium Phosphorus NT-Pro-B Natriuret Pep Albumin 07/04/19 07/04/19 07/05/19 07:04 17:56 01:45 WBC RDW Lymph % (Auto) [place] # Seg Neutrophils % Seg Neutrophils # ABG pH ABG pO2 ABG HCO3 ABG Base Excess ABG Hemoglobin Oxyhemoglobin Chloride Carbon Dioxide BUN Creatinine Glucose POC Glucose 162 H 273 H 148 H Hemoglobin A1c Calcium Phosphorus NT-Pro-B Natriuret Pep Albumin 07/05/19 07/05/19 07/05/19 03:07 03:07 05:57 WBC 18.7 H RDW 17.7 H Lymph % (Auto) 7.6 L [place] # 1.2 H Seg Neutrophils % 84.2 H Seg Neutrophils # 15.7 H ABG pH ABG pO2 ABG HCO3 ABG Base Excess ABG Hemoglobin Oxyhemoglobin Chloride 94.7 L 95.6 L Carbon Dioxide 19 L BUN 23 H 26 H Creatinine 2.7 H 2.9 H Glucose 161 H 179 H POC Glucose Hemoglobin A1c Calcium 10.3 H 10.5 H Phosphorus 5.20 H D NT-Pro-B Natriuret Pep Albumin 07/05/19 07/05/19 07/05/19 06:50 07:52 09:06 WBC 16.8 H RDW 18.1 H Lymph % (Auto) 8.0 L [place] # 1.1 H Seg Neutrophils % 84.4 H Seg Neutrophils # 14.2 H ABG pH ABG pO2 ABG HCO3 ABG Base Excess ABG Hemoglobin 11.7 L Oxyhemoglobin 94.6 L Chloride Carbon Dioxide BUN Creatinine Glucose POC Glucose 195 H Hemoglobin A1c Calcium Phosphorus NT-Pro-B Natriuret Pep Albumin 07/05/19 12:26 WBC RDW Lymph % (Auto) [place] # Seg Neutrophils % Seg Neutrophils # ABG pH ABG pO2 ABG HCO3 ABG Base Excess ABG Hemoglobin Oxyhemoglobin Chloride Carbon Dioxide BUN Creatinine Glucose POC Glucose 222 H Hemoglobin A1c Calcium Phosphorus NT-Pro-B Natriuret Pep Albumin Chest x-ray: image reviewed (ETT in good position) Allied health notes reviewed: nursing
--- NOTE | 2019-07-05 16:17 | Cat Scan Report ---
CT ABDOMEN AND PELVIS WITHOUT CONTRAST INDICATION: leucocytosis, unexplained. Sacral decubitus. TECHNIQUE: Axial CT images were obtained through the abdomen and pelvis without IV contrast. All CT scans at [facility] location are performed using CT dose reduction for ALARA by means of automated exposure control. COMPARISON: None available. FINDINGS: LOWER CHEST: Bibasilar streaky airspace disease characteristic for bilateral lower lobe pneumonia. LIVER: No significant abnormality. GALLBLADDER: No significant abnormality. BILE DUCTS: No significant abnormality. PANCREAS: No significant abnormality. SPLEEN: No significant abnormality. ADRENALS: No significant abnormality. RIGHT KIDNEY and URETER: 2 simple right renal cyst. Mild cortical renal atrophy LEFT KIDNEY and URETER: No significant abnormality. Mild cortical renal atrophy STOMACH and SMALL BOWEL: NG tube has tip in body of stomach. No significant abnormality. COLON: No significant abnormality. APPENDIX: No significant abnormality. PERITONEUM: No free fluid. No free air. No fluid collection. LYMPH NODES: No significant adenopathy. AORTA and ARTERIES: Extensive vascular calcifications throughout nonaneurysmal abdominal aorta, renal and mesenteric arteries characteristic for diabetes mellitus. IVC and VEINS: No significant abnormality. URINARY BLADDER: Markedly thickened urinary bladder containing Martinez catheter REPRODUCTIVE ORGANS: No significant abnormality. ADDITIONAL FINDINGS: Left sacrococcygeal decubitus ulcer without cortical destruction to suggest oste omyelitis. No drainable fluid collection. SKELETAL SYSTEM: No significant abnormality. IMPRESSION: 1. Left sacral decubitus ulcer without CT evidence for osteomyelitis or drainable fluid collection. 2. Markedly thick-walled bladder containing Martinez catheter suggestive for possible cystitis. Please c orrelate with urinalysis studies. 3. Bilateral lower lobe pneumonia Signer Name: Angelito Costello MD Signed: 07/05/2019 4:13 PM Workstation Name: [id number]
[2019-07-05] MEDS ORDERED: SODIUM BICARBONATE 325 MG TAB FEEDTUBE PRN (16:27)
[2019-07-05] MEDS ORDERED: SIMPLE SYRUP 15 ML FEEDTUBE PRN ×2 (16:27)
[2019-07-05] MEDS ORDERED: LIPASE 10,500/PROTEASE 25,000/AMYLASE 43,750 (UNITS) DR CAP FEEDTUBE PRN (16:27)
[2019-07-06] MEDS ORDERED: INSULIN REGULAR, HUMAN 100 UNITS/1 ML ONE (01:27)
--- NOTE | 2019-07-06 01:47 | XRay Report ---
ABDOMEN 1 VIEW(S) INDICATION / CLINICAL INFORMATION: confirm for tube feed. COMPARISON: None available. FINDINGS: TUBES / LINES: Nasogastric tube is coiled in the stomach with the tip at the level the gastric fundus . BOWEL GAS PATTERN/EXTRALUMINAL GAS: No significant abnormality. No pneumatosis or secondary signs of free air. ADDITIONAL FINDINGS: No significant additional findings. IMPRESSION: 1. No acute abnormality. Signer Name: Salazar Torres MD Signed: 07/06/2019 1:42 AM Workstation Name: [id number]
--- NOTE | 2019-07-06 01:47 | XRay Report ---
CHEST 1 VIEW INDICATION / CLINICAL INFORMATION: follow up respiratory failure. COMPARISON: 07/05/2019 FINDINGS: SUPPORT DEVICES: Nasogastric tube and endotracheal tube appear unchanged HEART / MEDIASTINUM: Unchanged LUNGS / PLEURA: Lungs appear unchanged. No pneumothorax. ADDITIONAL FINDINGS: No significant additional findings. IMPRESSION: 1. No significant change. Signer Name: Salazar Torres MD Signed: 07/06/2019 1:43 AM Workstation Name: [id number]
[2019-07-06] MEDS ORDERED: INSULIN LISPRO 100 UNIT/ML SUB-Q ONE ×3 (02:03→13:41)
[2019-07-06] MEDS: INSULIN LISPRO 100 UNIT/ML SUB-Q SCH ×4 (02:05→18:45)
[2019-07-06] MEDS ORDERED: ACETAMINOPHEN 650 MG RECT SUPP PR ONE (03:25)
[2019-07-06] MEDS ORDERED: ACETAMINOPHEN 650 MG RECT SUPP PR PRN (03:57)
[2019-07-06 04:08] LABS: ABG Base Excess 0.7 mmol/L (-2.0-3.0); ABG HCO3 25.9 mmol/L (20.0-26.0); ABG Methemoglobin 0.5 % (0.0-1.5); ABG Oxygen Saturation 93.3 % (95.0-99.0); ABG PCO2 43.7 mm Hg; ABG PH 7.391 pH Units (7.350-7.450); ABG PO2 67.1 mm Hg (80.0-90.0)
[2019-07-06 05:11] LABS: Basophils # (Auto) 0.1 K/mm3 (0.0-0.1); Basophils % (Auto) 0.3 % (0.0-1.8); Eosinophils # (Auto) 0.1 K/mm3 (0.0-0.4); Eosinophils % (Auto) 0.7 % (0.0-4.3); Hemoglobin 11.5 gm/dl (10.1-14.3); Lymphocytes # (Auto) 1.5 K/mm3 (1.2-5.4); Lymphocytes % (Auto) 9.3 % (13.4-35.0); Mean Corpuscular HGB Conc 32 % (30-34); Mean Corpuscular Volume 88 fl (79-97); Monocytes # (Auto) 1.3 K/mm3 (0.0-0.8); Monocytes % (Auto) 8.2 % (0.0-7.3); Platelet Count 308 K/mm3 (140-440); Red Cell Distribution Width 17.9 % (13.2-15.2)
[2019-07-06 05:34] LABS: Calcium 10.2 mg/dL (8.4-10.2)
--- NOTE | 2019-07-06 08:44 | Progress Note ---
Assessment and Plan Acute hypoxic respiratory failure on mechanical ventilation Acute metabolic encephalopathy ESRD on HD HTN Sepsis Hx of seizures DM Type 2 on insulin Hypercalemia Plan: - HD today for UF and clearance - PRN albumin for intradialytic hypotension - Assess dialysis needs daily - No indication for Epogen - ID on board, on Abx, follow cultures, ordered CT ABD pelvis w/o contrast - Currently Intubated on Vent - as per Pulmonology - Strict I&O - Renally dose meds - This pt undergoes outpatient HD at [facility] every MWF Subjective Date of service: 07/06/19 Principal diagnosis: Acute hypoxemic resp failure; AMS; Severe Sepsis; ESRD; CHF; HTN; Seizure Interval history: intubated, no family at bedside. Objective - Vital Signs Vital signs: Vital Signs - 12hr 07/05/19 07/05/19 07/05/19 21:00 21:30 22:00 Temperature Pulse Rate 89 87 90 Respiratory 15 14 14 Rate Blood Pressure 147/70 149/69 151/71 O2 Sat by Pulse 94 94 95 Oximetry 07/05/19 07/05/19 07/05/19 22:18 22:30 23:00 Temperature Pulse Rate 87 93 H 87 Respiratory 14 14 15 Rate Blood Pressure 150/71 149/72 144/68 O2 Sat by Pulse 98 93 95 Oximetry 07/05/19 07/05/19 07/06/19 23:04 23:30 00:00 Temperature 97.8 F Pulse Rate 88 85 85 Respiratory 14 13 Rate Blood Pressure 144/68 144/67 148/69 O2 Sat by Pulse 98 95 95 Oximetry 07/06/19 07/06/19 07/06/19 00:30 01:00 01:30 Temperature Pulse Rate 91 H 89 92 H Respiratory 12 13 14 Rate Blood Pressure 152/71 151/71 150/72 O2 Sat by Pulse 95 95 92 Oximetry 07/06/19 07/06/19 07/06/19 02:00 02:30 03:00 Temperature Pulse Rate 91 H 91 H 92 H Respiratory 15 14 14 Rate Blood Pressure 152/72 137/65 137/68 O2 Sat by Pulse 91 92 93 Oximetry 07/06/19 07/06/19 07/06/19 03:30 03:40 04:00 Temperature Pulse Rate 93 H 91 H 91 H Respiratory 13 14 Rate Blood Pressure 149/74 149/74 146/70 O2 Sat by Pulse 91 94 88 Oximetry 07/06/19 07/06/19 07/06/19 04:30 06:00 06:30 Temperature 99.1 F Pulse Rate 87 94 H 94 H Respiratory 15 17 16 Rate Blood Pressure 143/64 140/70 149/71 O2 Sat by Pulse 90 93 94 Oximetry 07/06/19 07/06/19 07/06/19 07:00 07:30 08:00 Temperature Pulse Rate 95 H 90 93 H Respiratory 20 15 Rate Blood Pressure 155/72 147/69 154/73 O2 Sat by Pulse 91 95 Oximetry - General Appearance General appearance: sedated on ventilator, intubated EENT: ATNC, PERRL, mucous membranes dry Neck: no JVD, no carotid bruit Respiratory: Present: Clear to Ascultation Cardiology: regular, S1S2 Gastrointestinal: normoactive bowel sounds, no hypoactive bowel sounds, no absent bowel sounds Integumentary: no rash, warm and dry Neurologic: other (intubated) Musculoskeletal: other (no edema in BLE) Psychiatric: other (intubated) - Lab 07/06/19 04:37 07/06/19 04:37 Most recent lab results ABG pH 7.391 pH Units (7.350-7.450) 07/06/19 03:45 ABG pCO2 43.7 mm Hg 07/06/19 03:45 ABG pO2 67.1 mm Hg (80.0-90.0) L 07/06/19 03:45 ABG HCO3 25.9 mmol/L (20.0-26.0) 07/06/19 03:45 ABG O2 Saturation 93.3 % (95.0-99.0) L 07/06/19 03:45 Calcium 10.2 mg/dL (8.4-10.2) 07/06/19 04:37 Phosphorus 5.80 mg/dL (2.5-4.5) H 07/06/19 04:37 Medications & Allergies - Medications Allergies/Adverse Reactions: Allergies No Known Allergies Allergy (Verified 07/03/19 10:58) Home Medications: Home Medications Medication Instructions Recorded Confirmed Last Taken Type Amlodipine Besylate [Norvasc] 10 mg PO DAILY 06/24/19 07/04/19 Unknown History AtorvaSTATin [Lipitor] 20 mg PO QHS 06/24/19 07/04/19 Unknown History Bumetanide 1 mg PO DAILY 06/24/19 07/04/19 Unknown History Cinacalcet HCl 30 mg PO DAILY 06/24/19 07/04/19 Unknown History Divalproex Sodium [Depakote 500 mg PO BID 06/24/19 07/04/19 Unknown History Sprinkle] Lispro Insulin [HumaLOG] 0 - 200 unit SQ ACHS 06/24/19 07/04/19 Unknown History Vit B Comp No.3/Folic/C/Biotin 1 each PO DAILY 06/24/19 07/04/19 Unknown History [Nephro-Umu Rx Tablet] carvediloL [Coreg] 25 mg PO BID 06/24/19 07/04/19 Unknown History hydrALAZINE [Apresoline TAB] 50 mg PO Q8HR 06/24/19 07/04/19 Unknown History ALBUTEROL NEB's [Proventil 0.083% 2.5 mg IH TIDRT #30 nebu 06/30/19 07/04/19 Unknown Rx NEBS] Lactulose [Cephulac] 20 gm PO Q8HR oral.liqd 06/30/19 07/04/19 Unknown Rx Sevelamer Carbonate [Renvela] 800 mg PO TIDWM tablet 06/30/19 07/04/19 Unknown Rx risperiDONE [RisperDAL] 0.5 mg PO BID tablet 06/30/19 07/04/19 Unknown Rx Active Medications: Generic Name Dose Route Start Last Admin Trade Name Freq PRN Reason Stop Dose Admin Acetaminophen 650 mg 07/06/19 03:57 07/06/19 04:00 Tylenol [place] 650 mg PRN PRN Administration Pain, Mild (1-3) Albumin Human 25 gm 07/04/19 12:37 Alburx 25% (Albumin) IV FEDE PRN Hypotension Albumin Human 25 gm 07/06/19 13:42 Alburx 25% (Albumin) IV FEDE PRN Hypotension Lipase/Protease/Amylase 1 each 07/05/19 16:27 Pancredelfino Knapp 10,500 Unit FEEDTUBE PRN PRN For Clogged Feeding Tube Dextrose 0 ml 07/03/19 04:34 D50w (25gm) Syringe IV Q30MIN PRN Hypoglycemia Protocol Famotidine 20 mg 07/03/19 10:00 07/05/19 10:41 Pepcid IV 20 mg DAILY YAGN Administration Heparin Sodium (Porcine) 5,000 unit 07/03/19 10:00 07/05/19 22:17 Heparin SUB-Q 5,000 unit Q12HR YANG Administration Hydrophilic Ointment 1 applic 07/03/19 00:53 Vaseline Lip Therapy TP Q2HR PRN Dry Lips Fentanyl Citrate 2,000 mcg in 100 mls @ 2.608 mls/hr 07/03/19 01:00 07/04/19 18:10 Fentanyl Drip Premix IV Infused TITR YANG Titration Protocol 1 MCG/KG/HR Midazolam HCl 100 mg/ Sodium 100 mls @ 2 mls/hr 07/03/19 02:15 07/04/19 18:05 Chloride IV 2 mg/hr TITR YANG 2 mls/hr Titration Protocol 2 MG/HR Cefepime HCl 1 gm in 100 mls @ 200 mls/hr 07/03/19 10:00 07/05/19 10:43 Cefepime/Ns 1 Gm/100 Ml IV 200 mls/hr Q24HR YANG Administration Protocol Sodium Chloride 100 mls @ 999 mls/hr 07/05/19 13:41 Nacl 0.9% IV FEDE PRN Hypotension Insulin Human Lispro 0 unit 07/03/19 06:00 07/06/19 06:04 Humalog SUB-Q 4 unit Q6HR YANG Administration Protocol Midazolam HCl 2 mg 07/03/19 01:50 Versed IV Q10MIN PRN Sedation Multi-Ingred Cream/Lotion/Oil/Oint 1 applic 07/03/19 00:53 Artificial Tears Ophth Oint OU Q4HR PRN Dry Eye(s) Simple Syrup 15 ml 07/05/19 16:27 Simple Syrup FEEDTUBE PRN PRN Hypoglycemia Simple Syrup 30 ml 07/05/19 16:27 Simple Syrup FEEDTUBE PRN PRN Hypoglycemia Sodium Bicarbonate 325 mg 07/05/19 16:27 Sodium Bicarbonate FEEDTUBE PRN PRN For Clogged Feeding Tube Sodium Chloride 10 ml 07/03/19 10:00 07/05/19 22:17 Sodium Chloride Flush Syringe 10 Ml IV 10 ml BID YANG Administration Sodium Chloride 10 ml 07/03/19 04:34 07/05/19 10:42 Sodium Chloride Flush Syringe 10 Ml IV 10 ml PRN PRN Administration LINE FLUSH
--- NOTE | 2019-07-06 09:55 | Progress Note ---
Assessment and Plan Acute hypoxemic respiratory failure on MVS Acute toxic metabolic encephalopathy Severe Sepsis ESRD on HD Congestive heart Failure Accelerated Hypertension H/O Seizure - VAP bundle addressed (aspiration precautions, HOB>40 degrees) -Lung protective strategies -wean FiO2 for O2 sats >90% - continue bronchodilators with pulmonary hygiene per RT - ABG reviewed and addressed - Daily SAT's and SBT assessment as tolerated - contiue nteral nutrition -RD consult fro tube feeding recommendations - HD/UF per nephrology for toxin and volume clearance - Empiric antibiotics therapies (de-escalate based on cultures and clinical condition) - VTE prophylaxis with heparin SQ - stress ulcer prophylaxis with Famotidine - accuchecks with glycemic control for SSI (While critically ill target blood glucose of 140-180 mg/dL; avoid hypoglycemia) - mobility protocols and off loading for pressure ulcer prevention - Monitor hemodynamics closely - Fluid restrictive strategies as tolerated by hemodynamics and by her renal f unction - continue to avoid nephrotoxins, dose all medications for CrCL and GFR - Monitor electrolyte profile closely and replete as indicated - Chronic home medications, resume as clinically indicated - All other care per attending / other consultants CONDITION: CRITICAL PROGNOSIS: GUARDED CODE STATUS: FULL CODE The high probability of a clinically significant, sudden or life-threatening det erioration of the [respiratory, cardiovascular, neurology, renal] system(s) required my full and direct attention, intervention and personal management. The aggregate critical care time was [35] minutes without overlap. Time includes spent on; [x] Data Review and interpretation [x] Patient assessment and monitoring of vital signs [x] Documentation [x] Medication orders and management Subjective Date of service: 07/06/19 Principal diagnosis: Acute hypoxemic resp failure; AMS; Severe Sepsis; ESRD; CHF; HTN; Seizure Interval history: Patient is seen today for: Acute hypoxemic respiratory failure; Toxic metabolic encephalopathy; Severe Sepsis; ESRD on HD; CHF; Accelerated Hypertension; H/O Seizure Seen and examined at bedside; 24hour events reviewed; nursing and respiratory care staff consulted; no adverse overnight events reported to me; Vitals, labs, medications, cahrt and imaging reviewed; resting peacefully in bed; AMS is persistent; no vomiting; no fevers; no seizures; tube feeds at goal and she is tolerating it well; supportive HD Objective Vital Signs - 12hr 07/05/19 07/05/19 07/05/19 22:00 22:18 22:30 Temperature Pulse Rate 90 87 93 H Respiratory 14 14 14 Rate Blood Pressure 151/71 150/71 149/72 O2 Sat by Pulse 95 98 93 Oximetry 07/05/19 07/05/19 07/05/19 23:00 23:04 23:30 Temperature Pulse Rate 87 88 85 Respiratory 15 14 Rate Blood Pressure 144/68 144/68 144/67 O2 Sat by Pulse 95 98 95 Oximetry 07/06/19 07/06/19 07/06/19 00:00 00:30 01:00 Temperature 97.8 F Pulse Rate 85 91 H 89 Respiratory 13 12 13 Rate Blood Pressure 148/69 152/71 151/71 O2 Sat by Pulse 95 95 95 Oximetry 07/06/19 07/06/19 07/06/19 01:30 02:00 02:30 Temperature Pulse Rate 92 H 91 H 91 H Respiratory 14 15 14 Rate Blood Pressure 150/72 152/72 137/65 O2 Sat by Pulse 92 91 92 Oximetry 07/06/19 07/06/19 07/06/19 03:00 03:30 03:40 Temperature Pulse Rate 92 H 93 H 91 H Respiratory 14 13 Rate Blood Pressure 137/68 149/74 149/74 O2 Sat by Pulse 93 91 94 Oximetry 07/06/19 07/06/19 07/06/19 04:00 04:30 06:00 Temperature 99.1 F Pulse Rate 91 H 87 94 H Respiratory 14 15 17 Rate Blood Pressure 146/70 143/64 140/70 O2 Sat by Pulse 88 90 93 Oximetry 07/06/19 07/06/19 07/06/19 06:30 07:00 07:30 Temperature Pulse Rate 94 H 95 H 90 Respiratory 16 20 15 Rate Blood Pressure 149/71 155/72 147/69 O2 Sat by Pulse 94 91 Oximetry 07/06/19 08:00 Temperature Pulse Rate 93 H Respiratory Rate Blood Pressure 154/73 O2 Sat by Pulse 95 Oximetry Constitutional: appears uncomfortable, other (middle aged thin female, normocephalic riding set rate on MVS) Eyes: non-icteric ENT: oropharynx dry, other (ETT 23 cm JORY) Neck: supple, no lymphadenopathy, no JVD Effort: mildly labored Ascultation: Bilateral: diminished breath sounds, rhonchi Percussion: Bilateral: not dull Cardiovascular: regular rate and rhythm Gastrointestinal: normoactive bowel sounds, soft, non-tender, non-distended Integumentary: normal Extremities: no cyanosis, no edema, pink and warm, pulses normal Neurologic: unable to assess Psychiatric: other (unable to assess re: AMS) CBC and BMP: 07/20/19 05:01 07/20/19 05:01 ABG, PT/INR, D-dimer: ABG ABG pH 7.391 pH Units (7.350-7.450) 07/06/19 03:45 ABG pCO2 43.7 mm Hg 07/06/19 03:45 ABG pO2 67.1 mm Hg (80.0-90.0) L 07/06/19 03:45 ABG O2 Saturation 93.3 % (95.0-99.0) L 07/06/19 03:45 Abnormal lab findings: Abnormal Labs 07/03/19 07/03/19 07/03/19 01:00 01:00 01:00 WBC 17.9 H RDW 17.8 H Lymph % (Auto) 11.7 L [place] % (Auto) [place] # 1.0 H Seg Neutrophils % 82.1 H Seg Neutrophils # 14.7 H ABG pH ABG pO2 ABG HCO3 ABG O2 Saturation ABG Base Excess ABG Hemoglobin Oxyhemoglobin Chloride 92.9 L Carbon Dioxide BUN 45 H Creatinine 5.3 H Glucose 229 H POC Glucose Hemoglobin A1c Calcium 10.5 H Phosphorus NT-Pro-B Natriuret Pep > 33224 H Albumin 2.5 L 07/03/19 07/03/19 07/03/19 01:00 01:35 04:30 WBC RDW Lymph % (Auto) [place] % (Auto) [place] # Seg Neutrophils % Seg Neutrophils # ABG pH 7.555 H 7.489 H ABG pO2 65.4 L 149.9 H ABG HCO3 28.9 H 27.9 H ABG O2 Saturation ABG Base Excess 6.7 H 4.5 H ABG Hemoglobin Oxyhemoglobin 94.0 L Chloride Carbon Dioxide BUN Creatinine Glucose POC Glucose Hemoglobin A1c 7.0 H Calcium Phosphorus NT-Pro-B Natriuret Pep Albumin 07/03/19 07/03/19 07/03/19 12:10 17:35 23:59 WBC RDW Lymph % (Auto) [place] % (Auto) [place] # Seg Neutrophils % Seg Neutrophils # ABG pH ABG pO2 ABG HCO3 ABG O2 Saturation ABG Base Excess ABG Hemoglobin Oxyhemoglobin Chloride Carbon Dioxide BUN Creatinine Glucose POC Glucose 246 H 163 H 112 H Hemoglobin A1c Calcium Phosphorus NT-Pro-B Natriuret Pep Albumin 07/04/19 07/04/19 07/04/19 04:24 04:56 04:56 WBC 17.3 H RDW 18.0 H Lymph % (Auto) 8.7 L [place] % (Auto) [place] # 0.9 H Seg Neutrophils % 85.1 H Seg Neutrophils # 14.8 H ABG pH 7.496 H ABG pO2 74.0 L ABG HCO3 28.1 H ABG O2 Saturation ABG Base Excess 4.7 H ABG Hemoglobin Oxyhemoglobin 93.9 L Chloride 95.5 L Carbon Dioxide BUN 26 H Creatinine 3.4 H Glucose 145 H POC Glucose Hemoglobin A1c Calcium Phosphorus NT-Pro-B Natriuret Pep Albumin 07/04/19 07/04/19 07/05/19 07:04 17:56 01:45 WBC RDW Lymph % (Auto) [place] % (Auto) [place] # Seg Neutrophils % Seg Neutrophils # ABG pH ABG pO2 ABG HCO3 ABG O2 Saturation ABG Base Excess ABG Hemoglobin Oxyhemoglobin Chloride Carbon Dioxide BUN Creatinine Glucose POC Glucose 162 H 273 H 148 H Hemoglobin A1c Calcium Phosphorus NT-Pro-B Natriuret Pep Albumin 07/05/19 07/05/19 07/05/19 03:07 03:07 05:57 WBC 18.7 H RDW 17.7 H Lymph % (Auto) 7.6 L [place] % (Auto) [place] # 1.2 H Seg Neutrophils % 84.2 H Seg Neutrophils # 15.7 H ABG pH ABG pO2 ABG HCO3 ABG O2 Saturation ABG Base Excess ABG Hemoglobin Oxyhemoglobin Chloride 94.7 L 95.6 L Carbon Dioxide 19 L BUN 23 H 26 H Creatinine 2.7 H 2.9 H Glucose 161 H 179 H POC Glucose Hemoglobin A1c Calcium 10.3 H 10.5 H Phosphorus 5.20 H D NT-Pro-B Natriuret Pep Albumin 07/05/19 07/05/19 07/05/19 06:50 07:52 09:06 WBC 16.8 H RDW 18.1 H Lymph % (Auto) 8.0 L [place] % (Auto) [place] # 1.1 H Seg Neutrophils % 84.4 H Seg Neutrophils # 14.2 H ABG pH ABG pO2 ABG HCO3 ABG O2 Saturation ABG Base Excess ABG Hemoglobin 11.7 L Oxyhemoglobin 94.6 L Chloride Carbon Dioxide BUN Creatinine Glucose POC Glucose 195 H Hemoglobin A1c Calcium Phosphorus NT-Pro-B Natriuret Pep Albumin 07/05/19 07/05/19 07/06/19 12:26 17:53 01:03 WBC RDW Lymph % (Auto) [place] % (Auto) [place] # Seg Neutrophils % Seg Neutrophils # ABG pH ABG pO2 ABG HCO3 ABG O2 Saturation ABG Base Excess ABG Hemoglobin Oxyhemoglobin Chloride Carbon Dioxide BUN Creatinine Glucose POC Glucose 222 H 214 H 217 H Hemoglobin A1c Calcium Phosphorus NT-Pro-B Natriuret Pep Albumin 07/06/19 07/06/19 07/06/19 03:45 04:37 04:37 WBC 15.7 H RDW 17.9 H Lymph % (Auto) 9.3 L [place] % (Auto) 8.2 H [place] # 1.3 H Seg Neutrophils % 81.5 H Seg Neutrophils # 12.8 H ABG pH ABG pO2 67.1 L ABG HCO3 ABG O2 Saturation 93.3 L ABG Base Excess ABG Hemoglobin Oxyhemoglobin 91.2 L Chloride 97.5 L Carbon Dioxide 20 L BUN 50 H Creatinine 4.5 H D Glucose 192 H POC Glucose Hemoglobin A1c Calcium Phosphorus 5.80 H NT-Pro-B Natriuret Pep Albumin 07/06/19 06:10 WBC RDW Lymph % (Auto) [place] % (Auto) [place] # Seg Neutrophils % Seg Neutrophils # ABG pH ABG pO2 ABG HCO3 ABG O2 Saturation ABG Base Excess ABG Hemoglobin Oxyhemoglobin Chloride Carbon Dioxide BUN Creatinine Glucose POC Glucose 214 H Hemoglobin A1c Calcium Phosphorus NT-Pro-B Natriuret Pep Albumin Allied health notes reviewed: nursing
--- NOTE | 2019-07-06 11:26 | Progress Note ---
Assessment and Plan Assessment and plan: Sepsis -CXR unremarkable -Leukocytosis present -Continue antibiotics -Blood cultures negative x 48-hours -CT abdomen pelvis with IV contrast to evaluate for source. Acute hypoxic respiratory failure -Continue mechanical ventilation per pulmonary. -Patient failed weaning this morning. Toxic metabolic encephalopathy -Neuro checks -Continue to treat underlying causes. ESRD on HD -M/W/F -Avoid nephrotoxic agents -Renal dose all meds -Nephrology following Congestive heart Failure -BNP >21340 on admission -Monitor input and output. -Cardiology following and reported no evidence of volume overload Hypertension -Continue to monitor BP -Patient is normotensive off blood pressure medications. Insulin-dependent diabetes -POC BG monitoring -SSI coverage prn Hx Seizure -Continue anticonvulsant meds -Seizure precautions. DVT PPX -On Heparin The high probability of a clinically significant, sudden or life threatening deterioration of the [respiratory] system(s) required my full and direct attention, intervention and personal management. The aggregate critical care time was [33] minutes. This time is in addition to time spent performing reported procedures but includes the following: [x] Data Review and interpretation [x] Patient assessment and monitoring of vital signs [x] Documentation [x] Medication orders and management History Interval history: Patient remains orally intubated Hospitalist Physical - Constitutional Vitals: Temp Pulse Resp BP Pulse Ox 98.7 F 87 17 131/74 97 07/06/19 10:27 07/06/19 11:15 07/06/19 10:27 07/06/19 11:15 07/06/19 10:27 General appearance: Present: other (intubated on the vent) - EENT Eyes: Present: PERRL, EOM intact ENT: hearing intact, clear oral mucosa, dentition normal - Neck Neck: Present: supple, normal ROM - Respiratory Respiratory effort: normal Respiratory: bilateral: CTA - Cardiovascular Rhythm: regular Heart Sounds: Present: S1 & S2. Absent: gallop, rub - Extremities Extremities: no ischemia, No edema, Full ROM - Abdominal General gastrointestinal: soft, non-tender, non-distended, normal bowel sounds - Integumentary Integumentary: Present: clear, warm, dry - Neurologic Neurologic: other (Patient somnolent opens eyes to tactile stimuli only does not follow commands.) DANIELLE score - Danielle Score Age > 65: (0) No Aspirin use within the Past 7 Days: (0) No 3 or more CAD Risk Factors: (1) Yes 2 or more Angina events in past 24 hrs: (0) No Known CAD with more than 50% Stenosis: (0) No Elevated Cardiac Markers: (1) Yes ST Deviation Greater than 0.5mm: (0) No DANIELLE Score: 2 Results - Labs CBC & Chem 7: 07/06/19 04:37 07/06/19 04:37 Labs: Laboratory Last Values WBC 15.7 K/mm3 (4.5-11.0) H 07/06/19 04:37 RBC 4.10 M/mm3 (3.65-5.03) 07/06/19 04:37 Hgb 11.5 gm/dl (10.1-14.3) 07/06/19 04:37 Hct 36.0 % (30.3-42.9) 07/06/19 04:37 MCV 88 fl (79-97) 07/06/19 04:37 MCH 28 pg (28-32) 07/06/19 04:37 MCHC 32 % (30-34) 07/06/19 04:37 RDW 17.9 % (13.2-15.2) H 07/06/19 04:37 Plt Count 308 K/mm3 (140-440) 07/06/19 04:37 Lymph % (Auto) 9.3 % (13.4-35.0) L 07/06/19 04:37 [place] % (Auto) 8.2 % (0.0-7.3) H 07/06/19 04:37 Eos % (Auto) 0.7 % (0.0-4.3) 07/06/19 04:37 Baso % (Auto) 0.3 % (0.0-1.8) 07/06/19 04:37 Lymph # 1.5 K/mm3 (1.2-5.4) 07/06/19 04:37 [place] # 1.3 K/mm3 (0.0-0.8) H 07/06/19 04:37 Eos # 0.1 K/mm3 (0.0-0.4) 07/06/19 04:37 Baso # 0.1 K/mm3 (0.0-0.1) 07/06/19 04:37 Seg Neutrophils % 81.5 % (40.0-70.0) H 07/06/19 04:37 Seg Neutrophils # 12.8 K/mm3 (1.8-7.7) H 07/06/19 04:37 ABG pH 7.391 pH Units (7.350-7.450) 07/06/19 03:45 ABG pCO2 43.7 mm Hg 07/06/19 03:45 ABG pO2 67.1 mm Hg (80.0-90.0) L 07/06/19 03:45 ABG HCO3 25.9 mmol/L (20.0-26.0) 07/06/19 03:45 ABG O2 Saturation 93.3 % (95.0-99.0) L 07/06/19 03:45 ABG O2 Content 15.8 (0.0-44) 07/06/19 03:45 ABG Base Excess 0.7 mmol/L (-2.0-3.0) 07/06/19 03:45 ABG Hemoglobin 12.3 gm/dl (12.0-16.0) 07/06/19 03:45 ABG Carboxyhemoglobin 1.7 % (0.0-5.0) 07/06/19 03:45 ABG Methemoglobin 0.5 % (0.0-1.5) 07/06/19 03:45 Oxyhemoglobin 91.2 % (95.0-99.0) L 07/06/19 03:45 FiO2 30 % 07/06/19 03:45 Sodium 141 mmol/L (137-145) 07/06/19 04:37 Potassium 4.3 mmol/L (3.6-5.0) 07/06/19 04:37 Chloride 97.5 mmol/L (98-107) L 07/06/19 04:37 Carbon Dioxide 20 mmol/L (22-30) L 07/06/19 04:37 Anion Gap 28 mmol/L 07/06/19 04:37 BUN 50 mg/dL (7-17) H 07/06/19 04:37 Creatinine 4.5 mg/dL (0.7-1.2) H D 07/06/19 04:37 Estimated GFR 10 ml/min 07/06/19 04:37 BUN/Creatinine Ratio 11 % 07/06/19 04:37 Glucose 192 mg/dL (65-100) H 07/06/19 04:37 POC Glucose 214 (70-105) H 07/06/19 06:10 Hemoglobin A1c 7.0 % (4-6) H 07/03/19 01:00 Lactic Acid 1.20 mmol/L (0.7-2.0) 07/03/19 04:13 Calcium 10.2 mg/dL (8.4-10.2) 07/06/19 04:37 Phosphorus 5.80 mg/dL (2.5-4.5) H 07/06/19 04:37 Total Bilirubin 0.30 mg/dL (0.1-1.2) 07/03/19 01:00 AST 22 units/L (5-40) 07/03/19 01:00 ALT 9 units/L (7-56) 07/03/19 01:00 Alkaline Phosphatase 101 units/L (35-129) 07/03/19 01:00 Ammonia 35.0 umol/L (25-60) 07/03/19 01:58 NT-Pro-B Natriuret Pep > 24311 pg/mL (0-900) H 07/03/19 01:00 Total Protein 7.0 g/dL (6.3-8.2) 07/03/19 01:00 Albumin 2.5 g/dL (3.9-5) L 07/03/19 01:00 Albumin/Globulin Ratio 0.6 % 07/03/19 01:00 TSH 2.600 mlU/mL (0.270-4.200) 07/03/19 01:00 Urine Color Yellow (Yellow) 07/03/19 Unknown Urine Turbidity Clear (Clear) 07/03/19 Unknown Urine pH 6.0 (5.0-7.0) 07/03/19 Unknown Ur Specific [place] 1.012 (1.003-1.030) 07/03/19 Unknown Urine Protein >500 mg/dL (Negative) 07/03/19 Unknown Urine Glucose (UA) >=500 mg/dL (Negative) 07/03/19 Unknown Urine Ketones Neg mg/dL (Negative) 07/03/19 Unknown Urine Blood Neg (Negative) 07/03/19 Unknown Urine Nitrite Neg (Negative) 07/03/19 Unknown Ur Reducing Substances Not Reportable 07/03/19 Unknown Urine Bilirubin Neg (Negative) 07/03/19 Unknown Urine Ictotest Not Reportable 07/03/19 Unknown Urine Urobilinogen < 2.0 mg/dL (<2.0) 07/03/19 Unknown Ur Leukocyte Esterase Neg (Negative) 07/03/19 Unknown Urine WBC (Auto) 1.0 /HPF (0.0-6.0) 07/03/19 Unknown Urine RBC (Auto) 2.0 /HPF (0.0-6.0) 07/03/19 Unknown U Epithel Cells (Auto) < 1.0 /HPF (0-13.0) 07/03/19 Unknown Urine Mucus Few /HPF 07/03/19 Unknown Random Vancomycin 25 ug/mL (0-40.0) 07/06/19 04:37 Influenza A (Rapid) Negative (Negative) 07/05/19 14:30 Influenza B (Rapid) Negative (Negative) 07/05/19 14:30 Active Medications - Current Medications Current Medications: Generic Name Dose Route Start Last Admin Trade Name Freq PRN Reason Stop Dose Admin Acetaminophen 650 mg 07/06/19 03:57 07/06/19 04:00 Tylenol AR 650 mg PRN PRN Administration Pain, Mild (1-3) Albumin Human 25 gm 07/04/19 12:37 [place] 25% (Albumin) IV FEDE PRN Hypotension Albumin Human 25 gm 07/06/19 13:42 [place]x 25% (Albumin) IV FEDE PRN Hypotension Lipase/Protease/Amylase 1 each 07/05/19 16:27 Pancreaze 10,500 Unit FEEDTUBE PRN PRN For Clogged Feeding Tube Dextrose 0 ml 07/03/19 04:34 D50w (25gm) Syringe IV Q30MIN PRN Hypoglycemia Protocol Famotidine 20 mg 07/03/19 10:00 07/05/19 10:41 Pepcid IV 20 mg DAILY YANG Administration Heparin Sodium (Porcine) 5,000 unit 07/03/19 10:00 07/05/19 22:17 Heparin SUB-Q 5,000 unit Q12HR YANG Administration Hydrophilic Ointment 1 applic 07/03/19 00:53 Vaseline Lip Therapy TP Q2HR PRN Dry Lips Fentanyl Citrate 2,000 mcg in 100 mls @ 2.608 mls/hr 07/03/19 01:00 07/04/19 18:10 Fentanyl Drip Premix IV Infused TITR YANG Titration Protocol 1 MCG/KG/HR Midazolam HCl 100 mg/ Sodium 100 mls @ 2 mls/hr 07/03/19 02:15 07/04/19 18:05 Chloride IV 2 mg/hr TITR YANG 2 mls/hr Titration Protocol 2 MG/HR Cefepime HCl 1 gm in 100 mls @ 200 mls/hr 07/03/19 10:00 07/05/19 10:43 Cefepime/Ns 1 Gm/100 Ml IV 200 mls/hr Q24HR YANG Administration Protocol Sodium Chloride 100 mls @ 999 mls/hr 07/05/19 13:41 Nacl 0.9% IV FEDE PRN Hypotension Insulin Human Lispro 0 unit 07/03/19 06:00 07/06/19 06:04 Humalog SUB-Q 4 unit Q6HR YANG Administration Protocol Midazolam HCl 2 mg 07/03/19 01:50 Versed IV Q10MIN PRN Sedation Multi-Ingred Cream/Lotion/Oil/Oint 1 applic 07/03/19 00:53 Artificial Tears Ophth Oint OU Q4HR PRN Dry Eye(s) Simple Syrup 15 ml 07/05/19 16:27 Simple Syrup FEEDTUBE PRN PRN Hypoglycemia Simple Syrup 30 ml 07/05/19 16:27 Simple Syrup FEEDTUBE PRN PRN Hypoglycemia Sodium Bicarbonate 325 mg 07/05/19 16:27 Sodium Bicarbonate FEEDTUBE PRN PRN For Clogged Feeding Tube Sodium Chloride 10 ml 07/03/19 10:00 07/05/19 22:17 Sodium Chloride Flush Syringe 10 Ml IV 10 ml BID YANG Administration Sodium Chloride 10 ml 07/03/19 04:34 07/05/19 10:42 Sodium Chloride Flush Syringe 10 Ml IV 10 ml PRN PRN Administration LINE FLUSH Nutrition/Malnutrition Assess - Dietary Evaluation Nutrition/Malnutrition Findings: Nutrition Notes Start: 07/06/19 08:50 Freq: Status: Active Protocol: Document 07/06/19 08:50 LM (Rec: 07/06/19 09:11 LM [id number]) Nutrition Notes Need for Assessment generated from: MD Order Initial or Follow up Assessment Current Diagnosis CKD (stage V CKD),Decubitus( Pressure Ulcer),Diabetes,Heart Failure,Respiratory Failure Other Pertinent Diagnosis on HD, Sacral PU, seizures, bipolar disorder, metabolic encephalopathy Current Diet no diet Labs/Tests BG 192 Phos 5.8 Pertinent Medications Humalog Height 5 ft 2 in Weight 54.8 kg [place] Body Weight (kg) 50.00 BMI 22.1 Weight Status Appropriate Subjective/Other Information MD consult for TF. Pt on vent. Burn Absent Trauma Absent GI Symptoms None Current % PO Negligible Minimum of two criteria No physical signs of malnutrition #2 Nutrition Diagnosis Increased nutrient needs ( specify in comment below) Comments: Protein Etiology wound healing As Evidenced by Signs and Symptoms pt with sacral PU #1 Nutrition Diagnosis Inadequate oral intake Etiology mechanical vent As Evidenced by Signs and Symptoms Pt unable to consume PO Is patient on ventilator? Yes Is Patient Ambulatory and/or Out of Bed No REE-([facility]-confined to bed) 1302.408 Calculation Used for Recommendations [facility] Additional Notes Protein: 66-110g (1.2-2g/kg) Fluid: 1-1.5L/day Nutrition Intervention Change Diet Order: TF Nutrition Support: [place] 1.8 at 35ml/hr Flush 150 ml q4h Kcal 1,512 Protein (gm) 68 Fluid (mL) 611 Goal #1 Start TF Goal #2 Wound healing Anticipated Discharge Needs: unable to determined at this time Follow-Up By: 07/07/19 Additional Comments F/U for TF tolerance
--- NOTE | 2019-07-06 14:11 | Progress Note ---
Assessment and Plan Hypoxic respiratory failure intubated on the vent ESRD on HD Altered mental status Hx of chronically elevated troponin dating back to 04/2018 at [facility] MPI performed November 2018 revealed no ischemia preserved LVEF by echo 06/25/2019 Hypertension Diabetes Hx of seizure disorder Conservative cardiac management. We will follow intermittently. Subjective Date of service: 07/06/19 Principal diagnosis: Acute hypoxemic resp failure; AMS; Severe Sepsis; ESRD; CHF; HTN; Seizure Interval history: Remains intubated on the vent. Undergoing dialysis. Objective Vital Signs Temp Pulse Resp BP Pulse Ox Pulse Ox 07/06/19 14:04 82 90/58 07/06/19 14:00 82 89/56 07/06/19 13:56 86 91/56 96 07/06/19 13:45 82 91/56 07/06/19 13:30 84 96/54 07/06/19 13:15 82 97/56 07/06/19 13:00 83 102/58 07/06/19 12:45 80 102/59 07/06/19 12:30 84 15 105/60 94 07/06/19 12:15 84 114/63 07/06/19 12:00 83 19 112/60 07/06/19 11:45 84 124/67 07/06/19 11:30 86 15 127/71 97 07/06/19 11:15 87 131/74 07/06/19 11:00 88 17 146/77 97 07/06/19 10:45 88 161/79 07/06/19 10:34 91 H 162/77 07/06/19 10:30 92 H 12 158/77 07/06/19 10:27 98.7 F 94 H 17 169/77 97 07/06/19 10:00 91 H 12 165/74 07/06/19 09:30 90 20 166/76 07/06/19 09:00 92 H 17 163/76 07/06/19 08:30 93 H 16 159/75 07/06/19 08:00 88 14 154/72 95 07/06/19 07:30 90 15 147/69 07/06/19 07:00 95 H 20 155/72 91 07/06/19 06:30 94 H 16 149/71 94 07/06/19 06:00 99.1 F 94 H 17 140/70 93 07/06/19 04:30 87 15 143/64 90 07/06/19 04:00 91 H 14 146/70 88 07/06/19 03:40 91 H 149/74 94 07/06/19 03:30 93 H 13 149/74 91 07/06/19 03:00 92 H 14 137/68 93 07/06/19 02:30 91 H 14 137/65 92 07/06/19 02:00 91 H 15 152/72 91 07/06/19 01:30 92 H 14 150/72 92 07/06/19 01:00 89 13 151/71 95 07/06/19 00:30 91 H 12 152/71 95 07/06/19 00:00 97.8 F 85 13 148/69 95 07/05/19 23:30 85 14 144/67 95 07/05/19 23:04 88 144/68 98 07/05/19 23:00 87 15 144/68 95 07/05/19 22:30 93 H 14 149/72 93 07/05/19 22:18 87 14 150/71 98 07/05/19 22:00 90 14 151/71 95 07/05/19 21:30 87 14 149/69 94 07/05/19 21:00 89 15 147/70 94 07/05/19 20:30 89 15 149/71 94 07/05/19 20:00 87 15 151/70 94 07/05/19 19:30 88 16 151/71 94 07/05/19 19:20 98 F 07/05/19 19:13 88 147/70 96 07/05/19 19:00 90 15 148/71 94 07/05/19 18:30 91 H 17 152/71 93 07/05/19 18:00 89 15 150/70 94 07/05/19 17:30 89 15 149/69 93 07/05/19 17:00 89 16 146/70 07/05/19 16:30 90 12 156/71 97 07/05/19 16:28 89 156/71 99 07/05/19 16:00 87 13 143/68 93 07/05/19 15:30 89 16 140/67 95 07/05/19 15:00 85 13 140/65 94 07/05/19 14:30 85 13 146/65 94 - Physical Examination General: Other (intubated and mechanically ventilated) Cardiac: Positive: Reg Rate and Rhythm Abdomen: Positive: Soft Extremities: Absent: edema - Labs and Meds CBC 07/06/19 Range/Units 04:37 WBC 15.7 H (4.5-11.0) K/mm3 RBC 4.10 (3.65-5.03) M/mm3 Hgb 11.5 (10.1-14.3) gm/dl Hct 36.0 (30.3-42.9) % Plt Count 308 (140-440) K/mm3 Lymph # 1.5 (1.2-5.4) K/mm3 [place] # 1.3 H (0.0-0.8) K/mm3 Eos # 0.1 (0.0-0.4) K/mm3 Baso # 0.1 (0.0-0.1) K/mm3 Comprehensive Metabolic Panel 07/06/19 Range/Units 04:37 Sodium 141 (137-145) mmol/L Potassium 4.3 (3.6-5.0) mmol/L Chloride 97.5 L (98-107) mmol/L Carbon Dioxide 20 L (22-30) mmol/L BUN 50 H (7-17) mg/dL Creatinine 4.5 H D (0.7-1.2) mg/dL Glucose 192 H (65-100) mg/dL Calcium 10.2 (8.4-10.2) mg/dL - Allied health notes Allied health notes reviewed: nursing
[2019-07-06] MEDS ORDERED: FAMOTIDINE 20 MG/2 ML INJ IV ONE (14:18)
[2019-07-06] MEDS ORDERED: HEPARIN 5,000 UNIT/1 ML VIAL ONE (14:18)
[2019-07-06] MEDS: HEPARIN 5,000 UNIT/1 ML VIAL SUB-Q SCH ×2 (14:29→21:15)
[2019-07-06] MEDS: FAMOTIDINE 20 MG/2 ML INJ IV SCH (14:29)
[2019-07-06] MEDS: CEFEPIME/NS 1 GM/100 ML 1 GM/100 ML BAG IV SCH (14:29)
--- NOTE | 2019-07-06 15:02 | Progress Note ---
Assessment and Plan Cultures: 07/03/2019 blood culture: No growth 07/03/2019 tracheal aspirate culture: Usual respiratory leelee A/P: 59 yo F with ESRD on HD, diabetes, HTN, CHF, seizure, bipolar, depression and was recently hospitalized with altered mental status and found to have leukocytosis, now readmitted with respiratory distress and hypoxia: #Neutrophilic leukocytosis: source unclear. ?R sided air bronchogram on today's xray to suggest pneumonia. #Acute respiratory failure: on the vent. CHF v/s pneumonia. #ESRD on HD: renally dose abx. #Sacral decubitus ulcer: wound care. CT without evidence of fluid collection or osteomyelitis. Recs: continue empiric IV Cefepime and Vancomycin for now, renally adjusted wound care to sacral wound monitor WBC Marilu Cervantes MD, FACP [facility] C: [phone] O: [phone] F: [phone] Subjective Date of service: 07/06/19 Principal diagnosis: Acute hypoxemic resp failure; AMS; Severe Sepsis; ESRD; CHF; HTN; Seizure Interval history: No fever. Remains on the vent. Still in ER awaiting bed in ICU. Hemodynamically stable. Objective - Exam Narrative Exam: Physical Exam: Constitutional: sedated, intubated Head, Ears, Nose: Normocephalic, atraumatic. External ears, nose normal Eyes: Conjunctivae/corneas clear. No icterus. No ptosis. Neck: intubated Oral: intubated Cardiovascular: S1, S2 normal. Respiratory: Good air entry, clear to auscultation bilaterally GI: Soft, non-tender; bowel sounds normal. No peritoneal signs Musculoskeletal: No pedal edema, no cyanosis. Skin: Sacral decubitus Hem/Lymphatic: No palpable cervical or supraclavicular nodes. No lymphangitis Psych: no agitation Neurological: sedated, intubated, on vent - Constitutional Vitals: Vital Signs Temp Pulse Resp BP Pulse Ox 98.7 F 79 14 97/58 96 07/06/19 10:27 07/06/19 14:30 07/06/19 14:30 07/06/19 14:30 07/06/19 14:30 Temperature -Last 24 Hours Temperature 98.7 F Temperature 99.1 F Temperature 97.8 F Temperature 98 F - Labs CBC & Chem 7: 07/06/19 04:37 07/06/19 04:37 Labs: Abnormal lab results 07/05/19 07/06/19 07/06/19 Range/Units 17:53 01:03 03:45 WBC (4.5-11.0) K/mm3 RDW (13.2-15.2) % Lymph % (Auto) (13.4-35.0) % [place] % (Auto) (0.0-7.3) % [place] # (0.0-0.8) K/mm3 Seg Neutrophils % (40.0-70.0) % Seg Neutrophils # (1.8-7.7) K/mm3 ABG pO2 67.1 L (80.0-90.0) mm Hg ABG O2 Saturation 93.3 L (95.0-99.0) % Oxyhemoglobin 91.2 L (95.0-99.0) % Chloride (98-107) mmol/L Carbon Dioxide (22-30) mmol/L BUN (7-17) mg/dL Creatinine (0.7-1.2) mg/dL Glucose (65-100) mg/dL POC Glucose 214 H 217 H (70-105) Phosphorus (2.5-4.5) mg/dL 07/06/19 07/06/19 07/06/19 Range/Units 04:37 04:37 06:10 WBC 15.7 H (4.5-11.0) K/mm3 RDW 17.9 H (13.2-15.2) % Lymph % (Auto) 9.3 L (13.4-35.0) % [place] % (Auto) 8.2 H (0.0-7.3) % [place] # 1.3 H (0.0-0.8) K/mm3 Seg Neutrophils % 81.5 H (40.0-70.0) % Seg Neutrophils # 12.8 H (1.8-7.7) K/mm3 ABG pO2 (80.0-90.0) mm Hg ABG O2 Saturation (95.0-99.0) % Oxyhemoglobin (95.0-99.0) % Chloride 97.5 L (98-107) mmol/L Carbon Dioxide 20 L (22-30) mmol/L BUN 50 H (7-17) mg/dL Creatinine 4.5 H D (0.7-1.2) mg/dL Glucose 192 H (65-100) mg/dL POC Glucose 214 H (70-105) Phosphorus 5.80 H (2.5-4.5) mg/dL 07/06/19 Range/Units 13:47 WBC (4.5-11.0) K/mm3 RDW (13.2-15.2) % Lymph % (Auto) (13.4-35.0) % [place] % (Auto) (0.0-7.3) % [place] # (0.0-0.8) K/mm3 Seg Neutrophils % (40.0-70.0) % Seg Neutrophils # (1.8-7.7) K/mm3 ABG pO2 (80.0-90.0) mm Hg ABG O2 Saturation (95.0-99.0) % Oxyhemoglobin (95.0-99.0) % Chloride (98-107) mmol/L Carbon Dioxide (22-30) mmol/L BUN (7-17) mg/dL Creatinine (0.7-1.2) mg/dL Glucose (65-100) mg/dL POC Glucose 233 H (70-105) Phosphorus (2.5-4.5) mg/dL - Imaging and cardiology Chest x-ray: report reviewed, image reviewed (?patchy infiltrates. ?R sided air bronchogram in upper lobe)
[2019-07-07] MEDS: INSULIN LISPRO 100 UNIT/ML SUB-Q SCH ×5 (01:29→23:51)
--- NOTE | 2019-07-07 02:48 | XRay Report ---
CHEST 1 VIEW INDICATION / CLINICAL INFORMATION: follow up respiratory failure. COMPARISON: 07/06/2019 FINDINGS: SUPPORT DEVICES: Unchanged HEART / MEDIASTINUM: No significant abnormality. LUNGS / PLEURA: Pulmonary opacities appear unchanged. No pneumothorax. ADDITIONAL FINDINGS: No significant additional findings. IMPRESSION: 1. No significant change. Signer Name: Salazar Torres MD Signed: 07/07/2019 2:43 AM Workstation Name: [id number]
[2019-07-07 04:47] LABS: ABG HCO3 28.6 mmol/L (20.0-26.0); ABG Methemoglobin 0.4 % (0.0-1.5); ABG Oxygen Saturation 98.2 % (95.0-99.0); ABG PCO2 42.9 mm Hg; ABG PH 7.442 pH Units (7.350-7.450); ABG PO2 113.7 mm Hg (80.0-90.0)
[2019-07-07 05:58] LABS: Basophils % (Auto) 0.2 % (0.0-1.8); Eosinophils # (Auto) 0.1 K/mm3 (0.0-0.4); Eosinophils % (Auto) 0.4 % (0.0-4.3); Hemoglobin 11.5 gm/dl (10.1-14.3); Lymphocytes # (Auto) 1.6 K/mm3 (1.2-5.4); Lymphocytes % (Auto) 10.9 % (13.4-35.0); Mean Corpuscular HGB Conc 32 % (30-34); Mean Corpuscular Volume 88 fl (79-97); Monocytes # (Auto) 1.3 K/mm3 (0.0-0.8); Monocytes % (Auto) 8.9 % (0.0-7.3); Platelet Count 330 K/mm3 (140-440); Red Cell Distribution Width 18.3 % (13.2-15.2)
[2019-07-07 06:19] LABS: Calcium 10.6 mg/dL (8.4-10.2)
--- NOTE | 2019-07-07 09:25 | Progress Note ---
Assessment and Plan Acute hypoxemic respiratory failure on MVS Acute toxic metabolic encephalopathy Severe Sepsis ESRD on HD Congestive heart Failure Accelerated Hypertension H/O Seizure - VAP bundle addressed (aspiration precautions, HOB>40 degrees) -Lung protective strategies -wean FiO2 for O2 sats >90% - continue bronchodilators with pulmonary hygiene per RT - ABG reviewed and addressed - Daily SAT's and SBT assessment as tolerated - enteral nutrition at goal - HD/UF per nephrology for toxin and volume clearance - Empiric antibiotics therapies (de-escalate based on cultures and clinical condition) - VTE prophylaxis with heparin SQ - stress ulcer prophylaxis with Famotidine - accuchecks with glycemic control for SSI (While critically ill target blood glucose of 140-180 mg/dL; avoid hypoglycemia) - mobility protocols and off loading for pressure ulcer prevention - Monitor hemodynamics closely - Fluid restrictive strategies as tolerated by hemodynamics and by her renal function - continue to avoid nephrotoxins, dose all medications for CrCL and GFR - Monitor electrolyte profile closely and replete as indicated - Chronic home medications, resume as clinically indicated - All other care per attending / other consultants CONDITION: CRITICAL PROGNOSIS: GUARDED CODE STATUS: FULL CODE The high probability of a clinically significant, sudden or life-threatening deterioration of the [respiratory, cardiovascular, neurology, renal] system(s) required my full and direct attention, intervention and personal management. The aggregate critical care time was [45] minutes without overlap. Time includes spent on; [x] Data Review and interpretation [x] Patient assessment and monitoring of vital signs [x] Documentation [x] Medication orders and management Subjective Date of service: 07/07/19 Principal diagnosis: Acute hypoxemic resp failure; AMS; Severe Sepsis; ESRD; CHF; HTN; Seizure Interval history: Patient is seen today for: Acute hypoxemic respiratory failure; Toxic metabolic encephalopathy; Severe Sepsis; ESRD on HD; CHF; Accelerated Hypertension; H/O Seizure Seen and examined at bedside; 24hour events reviewed; nursing and respiratory care staff consulted; no adverse overnight events reported to me; resting peacefully in bed; AMS is persistent; no emesis or overt aspiration; no seizures; tube feeds going; no high grade fevers Objective Vital Signs - 12hr 07/06/19 07/06/19 07/06/19 21:30 21:46 22:00 Temperature Pulse Rate 92 H 91 H 88 Pulse Rate [ Apical] Pulse Rate [ From Monitor] Respiratory 16 16 13 Rate Blood Pressure 109/60 109/60 132/70 O2 Sat by Pulse 97 97 95 Oximetry 07/06/19 07/06/19 07/06/19 22:16 22:30 22:46 Temperature Pulse Rate 88 83 86 Pulse Rate [ Apical] Pulse Rate [ From Monitor] Respiratory 15 15 14 Rate Blood Pressure 132/70 132/70 132/70 O2 Sat by Pulse 98 98 98 Oximetry 07/06/19 07/06/19 07/06/19 23:00 23:16 23:30 Temperature Pulse Rate 88 86 88 Pulse Rate [ Apical] Pulse Rate [ From Monitor] Respiratory 16 19 16 Rate Blood Pressure 117/64 117/64 117/64 O2 Sat by Pulse 96 97 98 Oximetry 07/06/19 07/07/19 07/07/19 23:46 00:00 00:07 Temperature 98.6 F Pulse Rate 87 89 Pulse Rate [ 89 Apical] Pulse Rate [ 89 From Monitor] Respiratory 13 20 Rate Blood Pressure 117/64 115/65 O2 Sat by Pulse 97 96 Oximetry 07/07/19 07/07/19 07/07/19 00:16 00:30 00:46 Temperature Pulse Rate 89 86 89 Pulse Rate [ Apical] Pulse Rate [ From Monitor] Respiratory 15 13 15 Rate Blood Pressure 115/65 115/65 O2 Sat by Pulse 98 99 98 Oximetry 07/07/19 07/07/19 07/07/19 01:00 01:16 01:30 Temperature Pulse Rate 88 87 90 Pulse Rate [ Apical] Pulse Rate [ From Monitor] Respiratory 18 12 15 Rate Blood Pressure 120/64 120/64 120/64 O2 Sat by Pulse 99 99 Oximetry 07/07/19 07/07/19 07/07/19 01:46 02:00 02:16 Temperature Pulse Rate 87 89 93 H Pulse Rate [ Apical] Pulse Rate [ From Monitor] Respiratory 15 18 16 Rate Blood Pressure 120/64 119/66 119/66 O2 Sat by Pulse 99 98 99 Oximetry 07/07/19 07/07/19 07/07/19 02:30 02:46 03:00 Temperature Pulse Rate 89 92 H 89 Pulse Rate [ Apical] Pulse Rate [ From Monitor] Respiratory 16 13 15 Rate Blood Pressure 119/66 119/66 104/59 O2 Sat by Pulse 98 98 Oximetry 07/07/19 07/07/19 07/07/19 03:16 03:24 03:30 Temperature 99.2 F Pulse Rate 94 H 89 Pulse Rate [ Apical] Pulse Rate [ From Monitor] Respiratory 17 13 Rate Blood Pressure 104/59 104/59 O2 Sat by Pulse 99 100 Oximetry 07/07/19 07/07/19 07/07/19 03:46 04:00 04:15 Temperature Pulse Rate 91 H 87 87 Pulse Rate [ 84 Apical] Pulse Rate [ 84 From Monitor] Respiratory 13 12 Rate Blood Pressure 104/59 110/62 110/62 O2 Sat by Pulse 99 98 98 Oximetry 07/07/19 07/07/19 07/07/19 04:16 04:30 04:46 Temperature Pulse Rate 87 88 91 H Pulse Rate [ Apical] Pulse Rate [ From Monitor] Respiratory 13 14 14 Rate Blood Pressure 110/62 110/62 110/62 O2 Sat by Pulse 98 99 99 Oximetry 07/07/19 07/07/19 07/07/19 05:00 05:16 05:30 Temperature Pulse Rate 91 H 87 85 Pulse Rate [ Apical] Pulse Rate [ From Monitor] Respiratory 17 11 L 11 L Rate Blood Pressure 112/62 112/62 112/62 O2 Sat by Pulse 98 99 99 Oximetry 07/07/19 07/07/19 07/07/19 05:46 06:00 06:16 Temperature Pulse Rate 87 86 90 Pulse Rate [ Apical] Pulse Rate [ From Monitor] Respiratory 13 12 14 Rate Blood Pressure 112/62 113/55 113/55 O2 Sat by Pulse 99 98 99 Oximetry 07/07/19 07/07/19 07/07/19 06:30 06:46 07:00 Temperature Pulse Rate 92 H 88 89 Pulse Rate [ Apical] Pulse Rate [ From Monitor] Respiratory 14 14 12 Rate Blood Pressure 113/55 113/55 119/56 O2 Sat by Pulse 100 100 97 Oximetry 07/07/19 07/07/19 07/07/19 07:16 07:30 07:46 Temperature Pulse Rate 88 91 H 92 H Pulse Rate [ Apical] Pulse Rate [ From Monitor] Respiratory 16 18 18 Rate Blood Pressure 119/56 119/56 119/56 O2 Sat by Pulse 99 99 98 Oximetry 07/07/19 07/07/19 07/07/19 08:00 08:16 08:30 Temperature 100.0 F H Pulse Rate 87 89 88 Pulse Rate [ 87 Apical] Pulse Rate [ 887 H From Monitor] Respiratory 13 14 12 Rate Blood Pressure 121/47 121/47 121/47 O2 Sat by Pulse 97 100 100 Oximetry 07/07/19 07/07/19 07/07/19 08:46 09:00 09:13 Temperature Pulse Rate 92 H 85 88 Pulse Rate [ Apical] Pulse Rate [ From Monitor] Respiratory 13 14 Rate Blood Pressure 121/47 126/58 126/58 O2 Sat by Pulse 100 99 100 Oximetry 07/07/19 09:18 Temperature Pulse Rate 87 Pulse Rate [ Apical] Pulse Rate [ From Monitor] Respiratory 21 Rate Blood Pressure 126/58 O2 Sat by Pulse 100 Oximetry Constitutional: appears uncomfortable, other (middle aged thin female, normocephalic riding set rate on MVS) Eyes: non-icteric ENT: oropharynx dry, other (ETT 23 cm JORY) Neck: supple, no lymphadenopathy, no JVD Effort: mildly labored Ascultation: Bilateral: diminished breath sounds, rhonchi Percussion: Bilateral: not dull Cardiovascular: regular rate and rhythm Gastrointestinal: normoactive bowel sounds, soft, non-tender, non-distended Integumentary: normal Extremities: no cyanosis, no edema, pink and warm, pulses normal Neurologic: unable to assess Psychiatric: other (unable to assess re: AMS) CBC and BMP: 07/20/19 05:01 07/20/19 05:01 ABG, PT/INR, D-dimer: ABG ABG pH 7.442 pH Units (7.350-7.450) 07/07/19 04:30 ABG pCO2 42.9 mm Hg 07/07/19 04:30 ABG pO2 113.7 mm Hg (80.0-90.0) H 07/07/19 04:30 ABG O2 Saturation 98.2 % (95.0-99.0) 07/07/19 04:30 Abnormal lab findings: Abnormal Labs 07/03/19 07/03/19 07/03/19 01:00 01:00 01:00 WBC 17.9 H RDW 17.8 H Lymph % (Auto) 11.7 L [place] % (Auto) [place] # 1.0 H Seg Neutrophils % 82.1 H Seg Neutrophils # 14.7 H ABG pH ABG pO2 ABG HCO3 ABG O2 Saturation ABG Base Excess ABG Hemoglobin Oxyhemoglobin Chloride 92.9 L Carbon Dioxide BUN 45 H Creatinine 5.3 H Glucose 229 H POC Glucose Hemoglobin A1c Calcium 10.5 H Phosphorus NT-Pro-B Natriuret Pep > 96596 H Albumin 2.5 L 07/03/19 07/03/19 07/03/19 01:00 01:35 04:30 WBC RDW Lymph % (Auto) [place] % (Auto) [place] # Seg Neutrophils % Seg Neutrophils # ABG pH 7.555 H 7.489 H ABG pO2 65.4 L 149.9 H ABG HCO3 28.9 H 27.9 H ABG O2 Saturation ABG Base Excess 6.7 H 4.5 H ABG Hemoglobin Oxyhemoglobin 94.0 L Chloride Carbon Dioxide BUN Creatinine Glucose POC Glucose Hemoglobin A1c 7.0 H Calcium Phosphorus NT-Pro-B Natriuret Pep Albumin 07/03/19 07/03/19 07/03/19 12:10 17:35 23:59 WBC RDW Lymph % (Auto) [place] % (Auto) [place] # Seg Neutrophils % Seg Neutrophils # ABG pH ABG pO2 ABG HCO3 ABG O2 Saturation ABG Base Excess ABG Hemoglobin Oxyhemoglobin Chloride Carbon Dioxide BUN Creatinine Glucose POC Glucose 246 H 163 H 112 H Hemoglobin A1c Calcium Phosphorus NT-Pro-B Natriuret Pep Albumin 07/04/19 07/04/19 07/04/19 04:24 04:56 04:56 WBC 17.3 H RDW 18.0 H Lymph % (Auto) 8.7 L [place] % (Auto) [place] # 0.9 H Seg Neutrophils % 85.1 H Seg Neutrophils # 14.8 H ABG pH 7.496 H ABG pO2 74.0 L ABG HCO3 28.1 H ABG O2 Saturation ABG Base Excess 4.7 H ABG Hemoglobin Oxyhemoglobin 93.9 L Chloride 95.5 L Carbon Dioxide BUN 26 H Creatinine 3.4 H Glucose 145 H POC Glucose Hemoglobin A1c Calcium Phosphorus NT-Pro-B Natriuret Pep Albumin 07/04/19 07/04/19 07/05/19 07:04 17:56 01:45 WBC RDW Lymph % (Auto) [place] % (Auto) [place] # Seg Neutrophils % Seg Neutrophils # ABG pH ABG pO2 ABG HCO3 ABG O2 Saturation ABG Base Excess ABG Hemoglobin Oxyhemoglobin Chloride Carbon Dioxide BUN Creatinine Glucose POC Glucose 162 H 273 H 148 H Hemoglobin A1c Calcium Phosphorus NT-Pro-B Natriuret Pep Albumin 07/05/19 07/05/19 07/05/19 03:07 03:07 05:57 WBC 18.7 H RDW 17.7 H Lymph % (Auto) 7.6 L [place] % (Auto) [place] # 1.2 H Seg Neutrophils % 84.2 H Seg Neutrophils # 15.7 H ABG pH ABG pO2 ABG HCO3 ABG O2 Saturation ABG Base Excess ABG Hemoglobin Oxyhemoglobin Chloride 94.7 L 95.6 L Carbon Dioxide 19 L BUN 23 H 26 H Creatinine 2.7 H 2.9 H Glucose 161 H 179 H POC Glucose Hemoglobin A1c Calcium 10.3 H 10.5 H Phosphorus 5.20 H D NT-Pro-B Natriuret Pep Albumin 07/05/19 07/05/19 07/05/19 06:50 07:52 09:06 WBC 16.8 H RDW 18.1 H Lymph % (Auto) 8.0 L [place] % (Auto) [place] # 1.1 H Seg Neutrophils % 84.4 H Seg Neutrophils # 14.2 H ABG pH ABG pO2 ABG HCO3 ABG O2 Saturation ABG Base Excess ABG Hemoglobin 11.7 L Oxyhemoglobin 94.6 L Chloride Carbon Dioxide BUN Creatinine Glucose POC Glucose 195 H Hemoglobin A1c Calcium Phosphorus NT-Pro-B Natriuret Pep Albumin 07/05/19 07/05/19 07/06/19 12:26 17:53 01:03 WBC RDW Lymph % (Auto) [place] % (Auto) [place] # Seg Neutrophils % Seg Neutrophils # ABG pH ABG pO2 ABG HCO3 ABG O2 Saturation ABG Base Excess ABG Hemoglobin Oxyhemoglobin Chloride Carbon Dioxide BUN Creatinine Glucose POC Glucose 222 H 214 H 217 H Hemoglobin A1c Calcium Phosphorus NT-Pro-B Natriuret Pep Albumin 07/06/19 07/06/19 07/06/19 03:45 04:37 04:37 WBC 15.7 H RDW 17.9 H Lymph % (Auto) 9.3 L [place] % (Auto) 8.2 H [place] # 1.3 H Seg Neutrophils % 81.5 H Seg Neutrophils # 12.8 H ABG pH ABG pO2 67.1 L ABG HCO3 ABG O2 Saturation 93.3 L ABG Base Excess ABG Hemoglobin Oxyhemoglobin 91.2 L Chloride 97.5 L Carbon Dioxide 20 L BUN 50 H Creatinine 4.5 H D Glucose 192 H POC Glucose Hemoglobin A1c Calcium Phosphorus 5.80 H NT-Pro-B Natriuret Pep Albumin 07/06/19 07/06/19 07/06/19 06:10 13:47 18:40 WBC RDW Lymph % (Auto) [place] % (Auto) [place] # Seg Neutrophils % Seg Neutrophils # ABG pH ABG pO2 ABG HCO3 ABG O2 Saturation ABG Base Excess ABG Hemoglobin Oxyhemoglobin Chloride Carbon Dioxide BUN Creatinine Glucose POC Glucose 214 H 233 H 225 H Hemoglobin A1c Calcium Phosphorus NT-Pro-B Natriuret Pep Albumin 07/07/19 07/07/19 07/07/19 00:11 04:30 05:33 WBC RDW Lymph % (Auto) [place] % (Auto) [place] # Seg Neutrophils % Seg Neutrophils # ABG pH ABG pO2 113.7 H ABG HCO3 28.6 H ABG O2 Saturation ABG Base Excess 4.0 H ABG Hemoglobin 11.3 L Oxyhemoglobin Chloride Carbon Dioxide BUN Creatinine Glucose POC Glucose 288 H 204 H Hemoglobin A1c Calcium Phosphorus NT-Pro-B Natriuret Pep Albumin 07/07/19 07/07/19 05:38 05:38 WBC 15.0 H RDW 18.3 H Lymph % (Auto) 10.9 L [place] % (Auto) 8.9 H [place] # 1.3 H Seg Neutrophils % 79.6 H Seg Neutrophils # 11.9 H ABG pH ABG pO2 ABG HCO3 ABG O2 Saturation ABG Base Excess ABG Hemoglobin Oxyhemoglobin Chloride 94.8 L Carbon Dioxide BUN 32 H Creatinine 2.8 H Glucose 236 H POC Glucose Hemoglobin A1c Calcium 10.6 H Phosphorus NT-Pro-B Natriuret Pep Albumin Allied health notes reviewed: nursing
--- NOTE | 2019-07-07 09:29 | Progress Note ---
Assessment and Plan Assessment and plan: Sepsis -CXR unremarkable -Leukocytosis present -Continue antibiotics -Blood cultures negative x 48-hours Acute hypoxic respiratory failure -Continue mechanical ventilation per pulmonary.. Toxic metabolic encephalopathy -Neuro checks -Continue to treat underlying causes. ESRD on HD -M/W/F -Avoid nephrotoxic agents -Renal dose all meds -Nephrology following Congestive heart Failure -BNP >35064 on admission -Monitor input and output. -Cardiology following and reported no evidence of volume overload Hypertension -Continue to monitor BP Insulin-dependent diabetes -POC BG monitoring -SSI coverage prn Hx Seizure -Continue anticonvulsant meds -Seizure precautions. DVT PPX -On Heparin The high probability of a clinically significant, sudden or life threatening deterioration of the [respiratory] system(s) required my full and direct attention, intervention and personal management. The aggregate critical care time was [36] minutes. This time is in addition to time spent performing reported procedures but includes the following: [x] Data Review and interpretation [x] Patient assessment and monitoring of vital signs [x] Documentation [x] Medication orders and management History Interval history: Patient intubated, Fever Hospitalist Physical - Physical exam Narrative exam: GEN: Not in acute distress, intubated, on vent HEENT: Normocephalic, atraumatic, Neck: supple, No JVD Lungs: Bilateral rhonchi, heart;S1 and S2 reg, no murmurs Abd:soft, non tender, non distended, normal bowel sounds Ext: No edema, no clubbing, no cyanosis Neuro: Intubated, sedated - Constitutional Vitals: Temp Pulse Resp BP Pulse Ox 100.0 F H 87 21 126/58 100 07/07/19 08:00 07/07/19 09:18 07/07/19 09:18 07/07/19 09:18 07/07/19 09:18 General appearance: Present: other (intubated on the vent) MATT score - Matt Score Age > 65: (0) No Aspirin use within the Past 7 Days: (0) No 3 or more CAD Risk Factors: (1) Yes 2 or more Angina events in past 24 hrs: (0) No Known CAD with more than 50% Stenosis: (0) No Elevated Cardiac Markers: (1) Yes ST Deviation Greater than 0.5mm: (0) No MATT Score: 2 Results - Labs CBC & Chem 7: 07/07/19 05:38 07/07/19 05:38 Labs: Laboratory Last Values WBC 15.0 K/mm3 (4.5-11.0) H 07/07/19 05:38 RBC 4.10 M/mm3 (3.65-5.03) 07/07/19 05:38 Hgb 11.5 gm/dl (10.1-14.3) 07/07/19 05:38 Hct 36.0 % (30.3-42.9) 07/07/19 05:38 MCV 88 fl (79-97) 07/07/19 05:38 MCH 28 pg (28-32) 07/07/19 05:38 MCHC 32 % (30-34) 07/07/19 05:38 RDW 18.3 % (13.2-15.2) H 07/07/19 05:38 Plt Count 330 K/mm3 (140-440) 07/07/19 05:38 Lymph % (Auto) 10.9 % (13.4-35.0) L 07/07/19 05:38 [place] % (Auto) 8.9 % (0.0-7.3) H 07/07/19 05:38 Eos % (Auto) 0.4 % (0.0-4.3) 07/07/19 05:38 Baso % (Auto) 0.2 % (0.0-1.8) 07/07/19 05:38 Lymph # 1.6 K/mm3 (1.2-5.4) 07/07/19 05:38 [place] # 1.3 K/mm3 (0.0-0.8) H 07/07/19 05:38 Eos # 0.1 K/mm3 (0.0-0.4) 07/07/19 05:38 Baso # 0.0 K/mm3 (0.0-0.1) 07/07/19 05:38 Seg Neutrophils % 79.6 % (40.0-70.0) H 07/07/19 05:38 Seg Neutrophils # 11.9 K/mm3 (1.8-7.7) H 07/07/19 05:38 ABG pH 7.442 pH Units (7.350-7.450) 07/07/19 04:30 ABG pCO2 42.9 mm Hg 07/07/19 04:30 ABG pO2 113.7 mm Hg (80.0-90.0) H 07/07/19 04:30 ABG HCO3 28.6 mmol/L (20.0-26.0) H 07/07/19 04:30 ABG O2 Saturation 98.2 % (95.0-99.0) 07/07/19 04:30 ABG O2 Content 15.4 (0.0-44) 07/07/19 04:30 ABG Base Excess 4.0 mmol/L (-2.0-3.0) H 07/07/19 04:30 ABG Hemoglobin 11.3 gm/dl (12.0-16.0) L 07/07/19 04:30 ABG Carboxyhemoglobin 1.6 % (0.0-5.0) 07/07/19 04:30 ABG Methemoglobin 0.4 % (0.0-1.5) 07/07/19 04:30 Oxyhemoglobin 96.2 % (95.0-99.0) 07/07/19 04:30 FiO2 35 % 07/07/19 04:30 Sodium 139 mmol/L (137-145) 07/07/19 05:38 Potassium 3.7 mmol/L (3.6-5.0) 07/07/19 05:38 Chloride 94.8 mmol/L (98-107) L 07/07/19 05:38 Carbon Dioxide 23 mmol/L (22-30) 07/07/19 05:38 Anion Gap 25 mmol/L 07/07/19 05:38 BUN 32 mg/dL (7-17) H 07/07/19 05:38 Creatinine 2.8 mg/dL (0.7-1.2) H 07/07/19 05:38 Estimated GFR 17 ml/min 07/07/19 05:38 BUN/Creatinine Ratio 11 % 07/07/19 05:38 Glucose 236 mg/dL (65-100) H 07/07/19 05:38 POC Glucose 204 (70-105) H 07/07/19 05:33 Hemoglobin A1c 7.0 % (4-6) H 07/03/19 01:00 Lactic Acid 1.20 mmol/L (0.7-2.0) 07/03/19 04:13 Calcium 10.6 mg/dL (8.4-10.2) H 07/07/19 05:38 Phosphorus 3.90 mg/dL (2.5-4.5) D 07/07/19 05:38 Total Bilirubin 0.30 mg/dL (0.1-1.2) 07/03/19 01:00 AST 22 units/L (5-40) 07/03/19 01:00 ALT 9 units/L (7-56) 07/03/19 01:00 Alkaline Phosphatase 101 units/L (35-129) 07/03/19 01:00 Ammonia 35.0 umol/L (25-60) 07/03/19 01:58 NT-Pro-B Natriuret Pep > 32973 pg/mL (0-900) H 07/03/19 01:00 Total Protein 7.0 g/dL (6.3-8.2) 07/03/19 01:00 Albumin 2.5 g/dL (3.9-5) L 07/03/19 01:00 Albumin/Globulin Ratio 0.6 % 07/03/19 01:00 TSH 2.600 mlU/mL (0.270-4.200) 07/03/19 01:00 Urine Color Yellow (Yellow) 07/03/19 Unknown Urine Turbidity Clear (Clear) 07/03/19 Unknown Urine pH 6.0 (5.0-7.0) 07/03/19 Unknown Ur Specific [place] 1.012 (1.003-1.030) 07/03/19 Unknown Urine Protein >500 mg/dL (Negative) 07/03/19 Unknown Urine Glucose (UA) >=500 mg/dL (Negative) 07/03/19 Unknown Urine Ketones Neg mg/dL (Negative) 07/03/19 Unknown Urine Blood Neg (Negative) 07/03/19 Unknown Urine Nitrite Neg (Negative) 07/03/19 Unknown Ur Reducing Substances Not Reportable 07/03/19 Unknown Urine Bilirubin Neg (Negative) 07/03/19 Unknown Urine Ictotest Not Reportable 07/03/19 Unknown Urine Urobilinogen < 2.0 mg/dL (<2.0) 07/03/19 Unknown Ur Leukocyte Esterase Neg (Negative) 07/03/19 Unknown Urine WBC (Auto) 1.0 /HPF (0.0-6.0) 07/03/19 Unknown Urine RBC (Auto) 2.0 /HPF (0.0-6.0) 07/03/19 Unknown U Epithel Cells (Auto) < 1.0 /HPF (0-13.0) 07/03/19 Unknown Urine Mucus Few /HPF 07/03/19 Unknown Random Vancomycin 25 ug/mL (0-40.0) 07/06/19 04:37 Influenza A (Rapid) Negative (Negative) 07/05/19 14:30 Influenza B (Rapid) Negative (Negative) 07/05/19 14:30 Active Medications - Current Medications Current Medications: Generic Name Dose Route Start Last Admin Trade Name Freq PRN Reason Stop Dose Admin Acetaminophen 650 mg 07/06/19 03:57 07/06/19 04:00 Tylenol [place] 650 mg PRN PRN Administration Pain, Mild (1-3) Albumin Human 25 gm 07/06/19 13:42 [place] 25% (Albumin) IV FEDE PRN Hypotension Lipase/Protease/Amylase 1 each 07/05/19 16:[address] 10,500 Unit FEEDTUBE PRN PRN For Clogged Feeding Tube Dextrose 0 ml 07/03/19 04:34 D50w (25gm) Syringe IV Q30MIN PRN Hypoglycemia Protocol Famotidine 20 mg 07/07/19 10:00 Pepcid PO DAILY YANG Heparin Sodium (Porcine) 5,000 unit 07/03/19 10:00 07/06/19 21:15 Heparin SUB-Q 5,000 unit Q12HR YANG Administration Hydrophilic Ointment 1 applic 07/03/19 00:53 Vaseline Lip Therapy TP Q2HR PRN Dry Lips Fentanyl Citrate 2,000 mcg in 100 mls @ 2.608 mls/hr 07/03/19 01:00 07/04/19 18:10 Fentanyl Drip Premix IV Infused TITR YANG Titration Protocol 1 MCG/KG/HR Cefepime HCl 1 gm in 100 mls @ 200 mls/hr 07/03/19 10:00 07/06/19 14:29 Cefepime/Ns 1 Gm/100 Ml IV 200 mls/hr Q24HR YANG Administration Protocol Sodium Chloride 100 mls @ 999 mls/hr 07/05/19 13:41 Nacl 0.9% IV FEDE PRN Hypotension Insulin Human Lispro 0 unit 07/03/19 06:00 07/07/19 06:15 Humalog SUB-Q 4 unit Q6HR YANG Administration Protocol Multi-Ingred Cream/Lotion/Oil/Oint 1 applic 07/03/19 00:53 Artificial Tears Ophth Oint OU Q4HR PRN Dry Eye(s) Simple Syrup 15 ml 07/05/19 16:27 Simple Syrup FEEDTUBE PRN PRN Hypoglycemia Simple Syrup 30 ml 07/05/19 16:27 Simple Syrup FEEDTUBE PRN PRN Hypoglycemia Sodium Bicarbonate 325 mg 07/05/19 16:27 Sodium Bicarbonate FEEDTUBE PRN PRN For Clogged Feeding Tube Sodium Chloride 10 ml 07/03/19 10:00 07/06/19 21:17 Sodium Chloride Flush Syringe 10 Ml IV 10 ml BID YANG Administration Sodium Chloride 10 ml 07/03/19 04:34 07/05/19 10:42 Sodium Chloride Flush Syringe 10 Ml IV 10 ml PRN PRN Administration LINE FLUSH Nutrition/Malnutrition Assess - Dietary Evaluation Nutrition/Malnutrition Findings: Nutrition Notes Start: 07/06/19 08:50 Freq: Status: Active Protocol: Document 07/06/19 08:50 LM (Rec: 07/06/19 09:11 LM [id number]) Nutrition Notes Need for Assessment generated from: MD Order Initial or Follow up Assessment Current Diagnosis CKD (stage V CKD),Decubitus( Pressure Ulcer),Diabetes,Heart Failure,Respiratory Failure Other Pertinent Diagnosis on HD, Sacral PU, seizures, bipolar disorder, metabolic encephalopathy Current Diet no diet Labs/Tests BG 192 Phos 5.8 Pertinent Medications Humalog Height 5 ft 2 in Weight 54.8 kg [place] Body Weight (kg) 50.00 BMI 22.1 Weight Status Appropriate Subjective/Other Information MD consult for TF. Pt on vent. Burn Absent Trauma Absent GI Symptoms None Current % PO Negligible Minimum of two criteria No physical signs of malnutrition #2 Nutrition Diagnosis Increased nutrient needs ( specify in comment below) Comments: Protein Etiology wound healing As Evidenced by Signs and Symptoms pt with sacral PU #1 Nutrition Diagnosis Inadequate oral intake Etiology mechanical vent As Evidenced by Signs and Symptoms Pt unable to consume PO Is patient on ventilator? Yes Is Patient Ambulatory and/or Out of Bed No REE-([facility]-confined to bed) 1302.408 Calculation Used for Recommendations Astrid Reza Additional Notes Protein: 66-110g (1.2-2g/kg) Fluid: 1-1.5L/day Nutrition Intervention Change Diet Order: TF Nutrition Support: Nepro 1.8 at 35ml/hr Flush 150 ml q4h Kcal 1,512 Protein (gm) 68 Fluid (mL) 611 Goal #1 Start TF Goal #2 Wound healing Anticipated Discharge Needs: unable to determined at this time Follow-Up By: 07/07/19 Additional Comments F/U for TF tolerance
[2019-07-07] MEDS: INSULIN GLARGINE 100 UNITS/ML SUB-Q SCH (10:57)
[2019-07-07] MEDS: FAMOTIDINE 20 MG TAB PO SCH (10:58)
[2019-07-07] MEDS: HEPARIN 5,000 UNIT/1 ML VIAL SUB-Q SCH ×2 (10:58→21:21)
[2019-07-07] MEDS: CEFEPIME/NS 1 GM/100 ML 1 GM/100 ML BAG IV SCH (10:59)
--- NOTE | 2019-07-07 13:29 | Progress Note ---
Assessment and Plan Cultures: 07/03/2019 blood culture: No growth 07/03/2019 tracheal aspirate culture: Usual respiratory leelee A/P: 59 yo F with ESRD on HD, diabetes, HTN, CHF, seizure, bipolar, depression and was recently hospitalized with altered mental status and found to have leukocytosis, now readmitted with respiratory distress and hypoxia: #Neutrophilic leukocytosis: source unclear. ?R sided air bronchogram on xray to suggest pneumonia. #Acute respiratory failure: on the vent. CHF v/s pneumonia. #ESRD on HD: renally dose abx. #Sacral decubitus ulcer: wound care. CT without evidence of fluid collection or osteomyelitis. #Acute encephalopathy: CT head on admission was unremarkable for acute process. Recs: persistent low grade temperatures, recent hospitalization and received prolonged Cefepime, at risk of MDR, will switch Cefepime to Meropenem no MRSA on any of the cultures, will d/c Vancomycin wound care to sacral wound monitor WBC and fever Marilu Cervantes MD, FACP [facility], [place], [facility] ([facility]) C: [phone] O: [phone] F: [phone] Subjective Date of service: 07/07/19 Principal diagnosis: Acute hypoxemic resp failure; AMS; Severe Sepsis; ESRD; CHF; HTN; Seizure Interval history: Patient continues to have low grade temperatures. Remains intubated, in ICU. Objective - Exam Narrative Exam: Physical Exam: Constitutional: sedated, intubated Head, Ears, Nose: Normocephalic, atraumatic. External ears, nose normal Eyes: Conjunctivae/corneas clear. No icterus. No ptosis. Neck: intubated Oral: intubated Cardiovascular: S1, S2 normal. Respiratory: Good air entry, clear to auscultation bilaterally GI: Soft, non-tender; bowel sounds normal. No peritoneal signs Musculoskeletal: No pedal edema, no cyanosis. Skin: Sacral decubitus Hem/Lymphatic: No palpable cervical or supraclavicular nodes. No lymphangitis Psych: no agitation Neurological: sedated, intubated, on vent - Constitutional Vitals: Vital Signs Temp Pulse Resp BP Pulse Ox 100.7 F H 86 13 125/66 100 07/07/19 12:00 07/07/19 12:16 07/07/19 12:16 07/07/19 12:16 07/07/19 12:16 Temperature -Last 24 Hours Temperature 100.7 F Temperature 100.0 F Temperature 100.1 F Temperature 99.2 F Temperature 98.6 F Temperature 99.1 F Temperature 100.1 F - Labs CBC & Chem 7: 07/07/19 05:38 07/07/19 05:38 Labs: Abnormal lab results 07/06/19 07/06/19 07/07/19 Range/Units 13:47 18:40 00:11 WBC (4.5-11.0) K/mm3 RDW (13.2-15.2) % Lymph % (Auto) (13.4-35.0) % Dukes % (Auto) (0.0-7.3) % Dukes # (0.0-0.8) K/mm3 Seg Neutrophils % (40.0-70.0) % Seg Neutrophils # (1.8-7.7) K/mm3 ABG pO2 (80.0-90.0) mm Hg ABG HCO3 (20.0-26.0) mmol/L ABG Base Excess (-2.0-3.0) mmol/L ABG Hemoglobin (12.0-16.0) gm/dl Chloride (98-107) mmol/L BUN (7-17) mg/dL Creatinine (0.7-1.2) mg/dL Glucose (65-100) mg/dL POC Glucose 233 H 225 H 288 H (70-105) Calcium (8.4-10.2) mg/dL 07/07/19 07/07/19 07/07/19 Range/Units 04:30 05:33 05:38 WBC 15.0 H (4.5-11.0) K/mm3 RDW 18.3 H (13.2-15.2) % Lymph % (Auto) 10.9 L (13.4-35.0) % Dukes % (Auto) 8.9 H (0.0-7.3) % Dukes # 1.3 H (0.0-0.8) K/mm3 Seg Neutrophils % 79.6 H (40.0-70.0) % Seg Neutrophils # 11.9 H (1.8-7.7) K/mm3 ABG pO2 113.7 H (80.0-90.0) mm Hg ABG HCO3 28.6 H (20.0-26.0) mmol/L ABG Base Excess 4.0 H (-2.0-3.0) mmol/L ABG Hemoglobin 11.3 L (12.0-16.0) gm/dl Chloride (98-107) mmol/L BUN (7-17) mg/dL Creatinine (0.7-1.2) mg/dL Glucose (65-100) mg/dL POC Glucose 204 H (70-105) Calcium (8.4-10.2) mg/dL 07/07/19 07/07/19 Range/Units 05:38 11:39 WBC (4.5-11.0) K/mm3 RDW (13.2-15.2) % Lymph % (Auto) (13.4-35.0) % Dukes % (Auto) (0.0-7.3) % Dukes # (0.0-0.8) K/mm3 Seg Neutrophils % (40.0-70.0) % Seg Neutrophils # (1.8-7.7) K/mm3 ABG pO2 (80.0-90.0) mm Hg ABG HCO3 (20.0-26.0) mmol/L ABG Base Excess (-2.0-3.0) mmol/L ABG Hemoglobin (12.0-16.0) gm/dl Chloride 94.8 L (98-107) mmol/L BUN 32 H (7-17) mg/dL Creatinine 2.8 H (0.7-1.2) mg/dL Glucose 236 H (65-100) mg/dL POC Glucose 309 H (70-105) Calcium 10.6 H (8.4-10.2) mg/dL
[2019-07-07] MEDS: MEROPENEM/NS 500 MG/50 ML 500 MG/50 ML BAG IV SCH ×2 (14:24→21:21)
--- NOTE | 2019-07-07 15:01 | Progress Note ---
Assessment and Plan Acute hypoxic respiratory failure on mechanical ventilation Acute metabolic encephalopathy ESRD on HD HTN Sepsis Hx of seizures DM Type 2 on insulin Hypercalemia Plan: - no indication for HD today - PRN albumin for intradialytic hypotension - Assess dialysis needs daily - No indication for Epogen - ID on board, on Abx, follow cultures, ordered CT ABD pelvis w/o contrast - Currently Intubated on Vent - as per Pulmonology - Strict I&O - Renally dose meds - This pt undergoes outpatient HD at [facility] every MWF Subjective Date of service: 07/07/19 Principal diagnosis: Acute hypoxemic resp failure; AMS; Severe Sepsis; ESRD; CHF; HTN; Seizure Interval history: tolerated HD yesterday Objective - Vital Signs Vital signs: Vital Signs - 12hr 07/07/19 07/07/19 07/07/19 03:16 03:24 03:30 Temperature 99.2 F Pulse Rate 94 H 89 Pulse Rate [ Apical] Pulse Rate [ From Monitor] Respiratory 17 13 Rate Blood Pressure 104/59 104/59 O2 Sat by Pulse 99 100 Oximetry 07/07/19 07/07/19 07/07/19 03:46 04:00 04:15 Temperature Pulse Rate 91 H 87 87 Pulse Rate [ 84 Apical] Pulse Rate [ 84 From Monitor] Respiratory 13 12 Rate Blood Pressure 104/59 110/62 110/62 O2 Sat by Pulse 99 98 98 Oximetry 07/07/19 07/07/19 07/07/19 04:16 04:30 04:46 Temperature Pulse Rate 87 88 91 H Pulse Rate [ Apical] Pulse Rate [ From Monitor] Respiratory 13 14 14 Rate Blood Pressure 110/62 110/62 110/62 O2 Sat by Pulse 98 99 99 Oximetry 07/07/19 07/07/19 07/07/19 05:00 05:16 05:30 Temperature Pulse Rate 91 H 87 85 Pulse Rate [ Apical] Pulse Rate [ From Monitor] Respiratory 17 11 L 11 L Rate Blood Pressure 112/62 112/62 112/62 O2 Sat by Pulse 98 99 99 Oximetry 07/07/19 07/07/19 07/07/19 05:46 06:00 06:16 Temperature Pulse Rate 87 86 90 Pulse Rate [ Apical] Pulse Rate [ From Monitor] Respiratory 13 12 14 Rate Blood Pressure 112/62 113/55 113/55 O2 Sat by Pulse 99 98 99 Oximetry 07/07/19 07/07/19 07/07/19 06:30 06:46 07:00 Temperature Pulse Rate 92 H 88 89 Pulse Rate [ Apical] Pulse Rate [ From Monitor] Respiratory 14 14 12 Rate Blood Pressure 113/55 113/55 119/56 O2 Sat by Pulse 100 100 97 Oximetry 07/07/19 07/07/19 07/07/19 07:16 07:30 07:46 Temperature Pulse Rate 88 91 H 92 H Pulse Rate [ Apical] Pulse Rate [ From Monitor] Respiratory 16 18 18 Rate Blood Pressure 119/56 119/56 119/56 O2 Sat by Pulse 99 99 98 Oximetry 07/07/19 07/07/19 07/07/19 08:00 08:16 08:30 Temperature 100.0 F H Pulse Rate 87 89 88 Pulse Rate [ 87 Apical] Pulse Rate [ 87 From Monitor] Respiratory 13 14 12 Rate Blood Pressure 121/47 121/47 121/47 O2 Sat by Pulse 97 100 100 Oximetry 07/07/19 07/07/19 07/07/19 08:46 09:00 09:13 Temperature Pulse Rate 92 H 85 88 Pulse Rate [ Apical] Pulse Rate [ From Monitor] Respiratory 13 14 Rate Blood Pressure 121/47 126/58 126/58 O2 Sat by Pulse 100 99 100 Oximetry 07/07/19 07/07/19 07/07/19 09:16 09:18 09:30 Temperature Pulse Rate 88 87 91 H Pulse Rate [ Apical] Pulse Rate [ From Monitor] Respiratory 17 21 27 H Rate Blood Pressure 126/58 126/58 126/58 O2 Sat by Pulse 100 100 99 Oximetry 07/07/19 07/07/19 07/07/19 09:46 10:00 10:16 Temperature Pulse Rate 91 H 93 H 90 Pulse Rate [ Apical] Pulse Rate [ From Monitor] Respiratory 26 H 13 17 Rate Blood Pressure 126/58 127/57 127/57 O2 Sat by Pulse 99 94 98 Oximetry 07/07/19 07/07/19 07/07/19 10:30 10:46 11:00 Temperature Pulse Rate 92 H 90 91 H Pulse Rate [ Apical] Pulse Rate [ From Monitor] Respiratory 16 14 Rate Blood Pressure 127/57 127/57 115/58 O2 Sat by Pulse 99 99 95 Oximetry 07/07/19 07/07/19 07/07/19 11:16 11:30 11:46 Temperature Pulse Rate 92 H 87 86 Pulse Rate [ Apical] Pulse Rate [ From Monitor] Respiratory 18 12 14 Rate Blood Pressure 115/58 115/58 115/58 O2 Sat by Pulse 99 100 100 Oximetry 07/07/19 07/07/19 07/07/19 11:59 12:00 12:16 Temperature 100.7 F H Pulse Rate 88 86 86 Pulse Rate [ 89 Apical] Pulse Rate [ 89 From Monitor] Respiratory 13 13 Rate Blood Pressure 125/66 125/66 125/66 O2 Sat by Pulse 100 100 100 Oximetry 07/07/19 07/07/19 07/07/19 12:30 12:46 13:00 Temperature Pulse Rate 89 90 88 Pulse Rate [ Apical] Pulse Rate [ From Monitor] Respiratory 16 16 17 Rate Blood Pressure 125/66 125/66 141/70 O2 Sat by Pulse 100 100 99 Oximetry 07/07/19 07/07/19 07/07/19 13:16 13:30 13:46 Temperature Pulse Rate 88 89 92 H Pulse Rate [ Apical] Pulse Rate [ From Monitor] Respiratory 12 13 18 Rate Blood Pressure 141/70 141/70 141/70 O2 Sat by Pulse 100 100 100 Oximetry 07/07/19 14:00 Temperature Pulse Rate 89 Pulse Rate [ Apical] Pulse Rate [ From Monitor] Respiratory 15 Rate Blood Pressure 125/66 O2 Sat by Pulse 97 Oximetry - General Appearance General appearance: well-developed, well-nourished, intubated EENT: ATNC, PERRL, mucous membranes dry Neck: no JVD, no carotid bruit Respiratory: Present: Clear to Ascultation Cardiology: regular, S1S2 Gastrointestinal: normoactive bowel sounds, no tenderness, no distended Integumentary: no rash, warm and dry Neurologic: no focal deficit Musculoskeletal: deferred Psychiatric: mood/affect appropriate - Lab 07/07/19 05:38 07/07/19 05:38 Most recent lab results ABG pH 7.442 pH Units (7.350-7.450) 07/07/19 04:30 ABG pCO2 42.9 mm Hg 07/07/19 04:30 ABG pO2 113.7 mm Hg (80.0-90.0) H 07/07/19 04:30 ABG HCO3 28.6 mmol/L (20.0-26.0) H 07/07/19 04:30 ABG O2 Saturation 98.2 % (95.0-99.0) 07/07/19 04:30 Calcium 10.6 mg/dL (8.4-10.2) H 07/07/19 05:38 Phosphorus 3.90 mg/dL (2.5-4.5) D 07/07/19 05:38 Medications & Allergies - Medications Allergies/Adverse Reactions: Allergies No Known Allergies Allergy (Verified 07/03/19 10:58) Home Medications: Home Medications Medication Instructions Recorded Confirmed Last Taken Type Amlodipine Besylate [Norvasc] 10 mg PO DAILY 06/24/19 07/04/19 Unknown History AtorvaSTATin [Lipitor] 20 mg PO QHS 06/24/19 07/04/19 Unknown History Bumetanide 1 mg PO DAILY 06/24/19 07/04/19 Unknown History Cinacalcet HCl 30 mg PO DAILY 06/24/19 07/04/19 Unknown History Divalproex Sodium [Depakote 500 mg PO BID 06/24/19 07/04/19 Unknown History Sprinkle] Lispro Insulin [HumaLOG] 0 - 200 unit SQ ACHS 06/24/19 07/04/19 Unknown History Vit B Comp No.3/Folic/C/Biotin 1 each PO DAILY 06/24/19 07/04/19 Unknown History [Nephro-Umu Rx Tablet] carvediloL [Coreg] 25 mg PO BID 06/24/19 07/04/19 Unknown History hydrALAZINE [Apresoline TAB] 50 mg PO Q8HR 06/24/19 07/04/19 Unknown History ALBUTEROL NEB's [Proventil 0.083% 2.5 mg IH TIDRT #30 nebu 06/30/19 07/04/19 Unknown Rx NEBS] Lactulose [Cephulac] 20 gm PO Q8HR oral.liqd 06/30/19 07/04/19 Unknown Rx Sevelamer Carbonate [Renvela] 800 mg PO TIDWM tablet 06/30/19 07/04/19 Unknown Rx risperiDONE [RisperDAL] 0.5 mg PO BID tablet 06/30/19 07/04/19 Unknown Rx Active Medications: Generic Name Dose Route Start Last Admin Trade Name Freq PRN Reason Stop Dose Admin Acetaminophen 650 mg 07/06/19 03:57 07/06/19 04:00 Tylenol IN 650 mg PRN PRN Administration Pain, Mild (1-3) Albumin Human 25 gm 07/06/19 13:42 Alburx 25% (Albumin) IV FEDE PRN Hypotension Lipase/Protease/Amylase 1 each 07/05/19 16:[address] 10,500 Unit FEEDTUBE PRN PRN For Clogged Feeding Tube Dextrose 0 ml 07/03/19 04:34 D50w (25gm) Syringe IV Q30MIN PRN Hypoglycemia Protocol Famotidine 20 mg 07/07/19 10:00 07/07/19 10:58 Pepcid PO 20 mg DAILY YANG Administration Heparin Sodium (Porcine) 5,000 unit 07/03/19 10:00 07/07/19 10:58 Heparin SUB-Q 5,000 unit Q12HR YANG Administration Hydrophilic Ointment 1 applic 07/03/19 00:53 Vaseline Lip Therapy TP Q2HR PRN Dry Lips Fentanyl Citrate 2,000 mcg in 100 mls @ 2.608 mls/hr 07/03/19 01:00 07/04/19 18:10 Fentanyl Drip Premix IV Infused TITR YANG Titration Protocol 1 MCG/KG/HR Sodium Chloride 100 mls @ 999 mls/hr 07/05/19 13:41 Nacl 0.9% IV FEDE PRN Hypotension Meropenem 500 mg in 50 mls @ 50 mls/hr 07/07/19 14:00 07/07/19 14:24 Merrem/Ns 500 Mg/50 Ml IV 50 mls/hr Q12HR YANG Administration Insulin Glargine 10 units 07/07/19 10:00 07/07/19 10:57 Lantus SUB-Q 10 units DAILY YANG Administration Insulin Human Lispro 0 unit 07/03/19 06:00 07/07/19 12:43 Humalog SUB-Q 8 unit Q6HR YANG Administration Protocol Multi-Ingred Cream/Lotion/Oil/Oint 1 applic 07/03/19 00:53 Artificial Tears Ophth Oint OU Q4HR PRN Dry Eye(s) Simple Syrup 15 ml 07/05/19 16:27 Simple Syrup FEEDTUBE PRN PRN Hypoglycemia Simple Syrup 30 ml 07/05/19 16:27 Simple Syrup FEEDTUBE PRN PRN Hypoglycemia Sodium Bicarbonate 325 mg 07/05/19 16:27 Sodium Bicarbonate FEEDTUBE PRN PRN For Clogged Feeding Tube Sodium Chloride 10 ml 07/03/19 10:00 07/07/19 10:00 Sodium Chloride Flush Syringe 10 Ml IV 10 ml BID YANG Administration Sodium Chloride 10 ml 07/03/19 04:34 07/05/19 10:42 Sodium Chloride Flush Syringe 10 Ml IV 10 ml PRN PRN Administration LINE FLUSH
--- NOTE | 2019-07-08 03:14 | XRay Report ---
CHEST 1 VIEW INDICATION / CLINICAL INFORMATION: follow up respiratory failure. COMPARISON: 07/07/2019 FINDINGS: SUPPORT DEVICES: Stable, satisfactory device positioning. HEART / MEDIASTINUM: Unchanged LUNGS / PLEURA: Lungs appear unchanged. No pneumothorax. ADDITIONAL FINDINGS: No significant additional findings. IMPRESSION: 1. No significant change. Signer Name: Salazar Torres MD Signed: 07/08/2019 3:09 AM Workstation Name: [id number]
[2019-07-08 03:57] LABS: ABG Base Excess 2.9 mmol/L (-2.0-3.0); ABG HCO3 27.7 mmol/L (20.0-26.0); ABG Methemoglobin 0.5 % (0.0-1.5); ABG Oxygen Saturation 98.2 % (95.0-99.0); ABG PCO2 43.6 mm Hg; ABG PH 7.421 pH Units (7.350-7.450); ABG PO2 116.2 mm Hg (80.0-90.0)
[2019-07-08] MEDS: INSULIN LISPRO 100 UNIT/ML SUB-Q SCH ×3 (05:34→18:51)
[2019-07-08 05:36] LABS: BUN/Creatinine Ratio 15; Blood Urea Nitrogen 64 mg/dL (7-17); Calcium 10.9 mg/dL (8.4-10.2)
[2019-07-08 05:42] LABS: Basophils % (Auto) 0.3 % (0.0-1.8); Eosinophils # (Auto) 0.1 K/mm3 (0.0-0.4); Eosinophils % (Auto) 0.9 % (0.0-4.3); Hematocrit 33.5 % (30.3-42.9); Hemoglobin 10.8 gm/dl (10.1-14.3); Lymphocytes # (Auto) 1.8 K/mm3 (1.2-5.4); Lymphocytes % (Auto) 13.7 % (13.4-35.0); Mean Corpuscular HGB Conc 32 % (30-34); Mean Corpuscular Volume 88 fl (79-97); Monocytes # (Auto) 1.3 K/mm3 (0.0-0.8); Monocytes % (Auto) 9.5 % (0.0-7.3); Platelet Count 352 K/mm3 (140-440); Red Blood Count 3.82 M/mm3 (3.65-5.03); Red Cell Distribution Width 18.3 % (13.2-15.2)
--- NOTE | 2019-07-08 09:53 | Progress Note ---
Assessment and Plan Assessment and plan: Sepsis -CXR unremarkable -Leukocytosis present -Continue antibiotics -Blood cultures negative x 72-hours Acute hypoxic respiratory failure -Continue mechanical ventilation per pulmonary.. Toxic metabolic encephalopathy -Neuro checks -Continue to treat underlying causes. ESRD on HD -M/W/F -Avoid nephrotoxic agents -Renal dose all meds -Nephrology following Congestive heart Failure -BNP >23693 on admission -Monitor input and output. -Cardiology following and reported no evidence of volume overload Hypertension -Continue to monitor BP Insulin-dependent diabetes -POC BG monitoring -SSI coverage prn Hx Seizure -Continue anticonvulsant meds -Seizure precautions. DVT PPX -On Heparin The high probability of a clinically significant, sudden or life threatening deterioration of the [respiratory] system(s) required my full and direct attention, intervention and personal management. The aggregate critical care time was [31] minutes. This time is in addition to time spent performing reported procedures but includes the following: [x] Data Review and interpretation [x] Patient assessment and monitoring of vital signs [x] Documentation [x] Medication orders and management History Interval history: Patient intubated, Still having Fever Hospitalist Physical - Physical exam Narrative exam: GEN: Not in acute distress, intubated, on vent HEENT: Normocephalic, atraumatic, Neck: supple, No JVD Lungs: Bilateral rhonchi, heart;S1 and S2 reg, no murmurs Abd:soft, non tender, non distended, normal bowel sounds Ext: No edema, no clubbing, no cyanosis Neuro: Intubated, sedated - Constitutional Vitals: Temp Pulse Resp BP Pulse Ox 101.6 F H 86 15 109/60 99 07/08/19 08:00 07/08/19 09:37 07/08/19 06:00 07/08/19 09:37 07/08/19 09:37 General appearance: Present: other (intubated on the vent) DANIELLE score - Danielle Score Age > 65: (0) No Aspirin use within the Past 7 Days: (0) No 3 or more CAD Risk Factors: (1) Yes 2 or more Angina events in past 24 hrs: (0) No Known CAD with more than 50% Stenosis: (0) No Elevated Cardiac Markers: (1) Yes ST Deviation Greater than 0.5mm: (0) No DANIELLE Score: 2 Results - Labs CBC & Chem 7: 07/08/19 04:38 07/08/19 04:38 Labs: Laboratory Last Values WBC 13.5 K/mm3 (4.5-11.0) H 07/08/19 04:38 RBC 3.82 M/mm3 (3.65-5.03) 07/08/19 04:38 Hgb 10.8 gm/dl (10.1-14.3) 07/08/19 04:38 Hct 33.5 % (30.3-42.9) 07/08/19 04:38 MCV 88 fl (79-97) 07/08/19 04:38 MCH 28 pg (28-32) 07/08/19 04:38 MCHC 32 % (30-34) 07/08/19 04:38 RDW 18.3 % (13.2-15.2) H 07/08/19 04:38 Plt Count 352 K/mm3 (140-440) 07/08/19 04:38 Lymph % (Auto) 13.7 % (13.4-35.0) 07/08/19 04:38 Randolph % (Auto) 9.5 % (0.0-7.3) H 07/08/19 04:38 Eos % (Auto) 0.9 % (0.0-4.3) 07/08/19 04:38 Baso % (Auto) 0.3 % (0.0-1.8) 07/08/19 04:38 Lymph # 1.8 K/mm3 (1.2-5.4) 07/08/19 04:38 Randolph # 1.3 K/mm3 (0.0-0.8) H 07/08/19 04:38 Eos # 0.1 K/mm3 (0.0-0.4) 07/08/19 04:38 Baso # 0.0 K/mm3 (0.0-0.1) 07/08/19 04:38 Seg Neutrophils % 75.6 % (40.0-70.0) H 07/08/19 04:38 Seg Neutrophils # 10.2 K/mm3 (1.8-7.7) H 07/08/19 04:38 ABG pH 7.421 pH Units (7.350-7.450) 07/08/19 03:49 ABG pCO2 43.6 mm Hg 07/08/19 03:49 ABG pO2 116.2 mm Hg (80.0-90.0) H 07/08/19 03:49 ABG HCO3 27.7 mmol/L (20.0-26.0) H 07/08/19 03:49 ABG O2 Saturation 98.2 % (95.0-99.0) 07/08/19 03:49 ABG O2 Content 15.3 (0.0-44) 07/08/19 03:49 ABG Base Excess 2.9 mmol/L (-2.0-3.0) 07/08/19 03:49 ABG Hemoglobin 11.2 gm/dl (12.0-16.0) L 07/08/19 03:49 ABG Carboxyhemoglobin 1.4 % (0.0-5.0) 07/08/19 03:49 ABG Methemoglobin 0.5 % (0.0-1.5) 07/08/19 03:49 Oxyhemoglobin 96.3 % (95.0-99.0) 07/08/19 03:49 FiO2 21 % 07/08/19 03:49 Sodium 139 mmol/L (137-145) 07/08/19 04:38 Potassium 3.9 mmol/L (3.6-5.0) 07/08/19 04:38 Chloride 94.9 mmol/L (98-107) L 07/08/19 04:38 Carbon Dioxide 26 mmol/L (22-30) 07/08/19 04:38 Anion Gap 22 mmol/L 07/08/19 04:38 BUN 64 mg/dL (7-17) H 07/08/19 04:38 Creatinine 4.2 mg/dL (0.7-1.2) H 07/08/19 04:38 Estimated GFR 11 ml/min 07/08/19 04:38 BUN/Creatinine Ratio 15 % 07/08/19 04:38 Glucose 288 mg/dL (65-100) H 07/08/19 04:38 POC Glucose 270 (70-105) H 07/08/19 05:37 Hemoglobin A1c 7.0 % (4-6) H 07/03/19 01:00 Lactic Acid 1.20 mmol/L (0.7-2.0) 07/03/19 04:13 Calcium 10.9 mg/dL (8.4-10.2) H 07/08/19 04:38 Phosphorus 4.10 mg/dL (2.5-4.5) 07/08/19 04:38 Total Bilirubin 0.30 mg/dL (0.1-1.2) 07/03/19 01:00 AST 22 units/L (5-40) 07/03/19 01:00 ALT 9 units/L (7-56) 07/03/19 01:00 Alkaline Phosphatase 101 units/L (35-129) 07/03/19 01:00 Ammonia 35.0 umol/L (25-60) 07/03/19 01:58 NT-Pro-B Natriuret Pep > 37671 pg/mL (0-900) H 07/03/19 01:00 Total Protein 7.0 g/dL (6.3-8.2) 07/03/19 01:00 Albumin 2.5 g/dL (3.9-5) L 07/03/19 01:00 Albumin/Globulin Ratio 0.6 % 07/03/19 01:00 TSH 2.600 mlU/mL (0.270-4.200) 07/03/19 01:00 Urine Color Yellow (Yellow) 07/03/19 Unknown Urine Turbidity Clear (Clear) 07/03/19 Unknown Urine pH 6.0 (5.0-7.0) 07/03/19 Unknown Ur Specific [place] 1.012 (1.003-1.030) 07/03/19 Unknown Urine Protein >500 mg/dL (Negative) 07/03/19 Unknown Urine Glucose (UA) >=500 mg/dL (Negative) 07/03/19 Unknown Urine Ketones Neg mg/dL (Negative) 07/03/19 Unknown Urine Blood Neg (Negative) 07/03/19 Unknown Urine Nitrite Neg (Negative) 07/03/19 Unknown Ur Reducing Substances Not Reportable 07/03/19 Unknown Urine Bilirubin Neg (Negative) 07/03/19 Unknown Urine Ictotest Not Reportable 07/03/19 Unknown Urine Urobilinogen < 2.0 mg/dL (<2.0) 07/03/19 Unknown Ur Leukocyte Esterase Neg (Negative) 07/03/19 Unknown Urine WBC (Auto) 1.0 /HPF (0.0-6.0) 07/03/19 Unknown Urine RBC (Auto) 2.0 /HPF (0.0-6.0) 07/03/19 Unknown U Epithel Cells (Auto) < 1.0 /HPF (0-13.0) 07/03/19 Unknown Urine Mucus Few /HPF 07/03/19 Unknown Random Vancomycin 18.7 ug/mL (0-40.0) 07/08/19 04:38 Influenza A (Rapid) Negative (Negative) 07/05/19 14:30 Influenza B (Rapid) Negative (Negative) 07/05/19 14:30 Active Medications - Current Medications Current Medications: Generic Name Dose Route Start Last Admin Trade Name Freq PRN Reason Stop Dose Admin Acetaminophen 650 mg 07/08/19 10:00 Tylenol GA Q4H PRN Pain, Mild (1-3) Albumin Human 25 gm 07/06/19 13:42 Alburx 25% (Albumin) IV FEDE PRN Hypotension Lipase/Protease/Amylase 1 each 07/05/19 16:[address] 10,500 Unit FEEDTUBE PRN PRN For Clogged Feeding Tube Dextrose 0 ml 07/03/19 04:34 D50w (25gm) Syringe IV Q30MIN PRN Hypoglycemia Protocol Famotidine 20 mg 07/07/19 10:00 07/07/19 10:58 Pepcid PO 20 mg DAILY YANG Administration Heparin Sodium (Porcine) 5,000 unit 07/03/19 10:00 07/07/19 21:21 Heparin SUB-Q 5,000 unit Q12HR YANG Administration Hydrophilic Ointment 1 applic 07/03/19 00:53 Vaseline Lip Therapy TP Q2HR PRN Dry Lips Fentanyl Citrate 2,000 mcg in 100 mls @ 2.608 mls/hr 07/03/19 01:00 07/04/19 18:10 Fentanyl Drip Premix IV Infused TITR YANG Titration Protocol 1 MCG/KG/HR Sodium Chloride 100 mls @ 999 mls/hr 07/05/19 13:41 Nacl 0.9% IV FEDE PRN Hypotension Meropenem 500 mg in 50 mls @ 50 mls/hr 07/07/19 14:00 07/07/19 21:21 Merrem/Ns 500 Mg/50 Ml IV 50 mls/hr Q12HR YANG Administration Insulin Glargine 10 units 07/07/19 10:00 07/07/19 10:57 Lantus SUB-Q 10 units DAILY YANG Administration Insulin Human Lispro 0 unit 07/03/19 06:00 07/08/19 05:34 Humalog SUB-Q 6 unit Q6HR YANG Administration Protocol Multi-Ingred Cream/Lotion/Oil/Oint 1 applic 07/03/19 00:53 Artificial Tears Ophth Oint OU Q4HR PRN Dry Eye(s) Simple Syrup 15 ml 07/05/19 16:27 Simple Syrup FEEDTUBE PRN PRN Hypoglycemia Simple Syrup 30 ml 07/05/19 16:27 Simple Syrup FEEDTUBE PRN PRN Hypoglycemia Sodium Bicarbonate 325 mg 07/05/19 16:27 Sodium Bicarbonate FEEDTUBE PRN PRN For Clogged Feeding Tube Sodium Chloride 10 ml 07/03/19 10:00 07/07/19 21:21 Sodium Chloride Flush Syringe 10 Ml IV 10 ml BID YANG Administration Sodium Chloride 10 ml 07/03/19 04:34 07/05/19 10:42 Sodium Chloride Flush Syringe 10 Ml IV 10 ml PRN PRN Administration LINE FLUSH Nutrition/Malnutrition Assess - Dietary Evaluation Nutrition/Malnutrition Findings: Nutrition Notes Start: 07/06/19 08:50 Freq: Status: Active Protocol: Document 07/07/19 12:40 CW (Rec: 07/07/19 12:51 CW [id number]) Co-Sign 07/07/19 12:40 LP Nutrition Notes Initial or Follow up Reassessment Current Diagnosis CKD (stage V CKD),Decubitus( Pressure Ulcer),Diabetes,Heart Failure,Respiratory Failure Other Pertinent Diagnosis on HD, Sacral PU, seizures, bipolar disorder, metabolic encephalopathy Current Diet Nepro 1.8 at 35 ml/hr Labs/Tests BG 236 Pertinent Medications Humalog Lantus Height 5 ft 2 in Weight 49.1 kg [place] Body Weight (kg) 50.00 BMI 19.8 Weight change and time frame 5.7 (12%) kg wt loss in 1 day likely D/T fluid loss Weight Status Appropriate Subjective/Other Information F/U for TF tolerance. Nepro 1. 8 currently running at 30 ml/ hr. RN stated that she will advance TF to goal rate of 35 ml/hr. Burn Absent Trauma Absent GI Symptoms None Current % PO Negligible Minimum of two criteria No physical signs of malnutrition #2 Nutrition Diagnosis Increased nutrient needs ( specify in comment below) Comments: Protein Diagnosis Progress(for reassessment Continues documentation) #1 Nutrition Diagnosis Inadequate oral intake Diagnosis Progress(for reassessment Continues documentation) Is patient on ventilator? Yes Is Patient Ambulatory and/or Out of Bed No REE-([facility]-confined to bed) 1234.080 Kcal/Kg value to use for calculation 30 Approximate Energy Requirements Using 1473 kcal/Kg Calculation Used for Recommendations [facility] Additional Notes Protein: 59 -98g (1.2-2g/kg) Fluid: 1-1.5 L/ day Nutrition Intervention Change Diet Order: TF Nutrition Support: Nepro 1.8 at 35ml/hr Flush 150 ml q4h Kcal 1,512 Protein (gm) 68 Fluid (mL) 611 Goal #1 TF tolerance Goal #2 Wound healing Anticipated Discharge Needs: unable to determine at this time Follow-Up By: 07/09/19 Additional Comments F/U for TF tolerance and stable wt.
[2019-07-08] MEDS ORDERED: ACETAMINOPHEN 650 MG RECT SUPP PR PRN (10:00)
[2019-07-08] MEDS: INSULIN GLARGINE 100 UNITS/ML SUB-Q SCH (10:32)
[2019-07-08] MEDS: MEROPENEM/NS 500 MG/50 ML 500 MG/50 ML BAG IV SCH ×2 (10:32→22:49)
[2019-07-08] MEDS: HEPARIN 5,000 UNIT/1 ML VIAL SUB-Q SCH ×2 (10:32→22:49)
[2019-07-08] MEDS: FAMOTIDINE 20 MG TAB PO SCH (10:32)
--- NOTE | 2019-07-08 10:38 | Progress Note ---
Assessment and Plan Acute hypoxic respiratory failure on mechanical ventilation Acute metabolic encephalopathy ESRD on HD HTN Sepsis Hx of seizures DM Type 2 on insulin Hypercalemia Plan: - HD today for UF and clearance - PRN albumin for intradialytic hypotension - Assess dialysis needs daily - Epogen dosing for anemia management as needed - ID on board, on Abx, follow cultures - Currently Intubated on Vent - as per Pulmonology - Strict I&O - Renally dose meds - This pt undergoes outpatient HD at [facility] every MWF - Renal plan d/w Dr Wray Subjective Date of service: 07/08/19 Principal diagnosis: Acute hypoxemic resp failure; AMS; Severe Sepsis; ESRD; CHF; HTN; Seizure Interval history: Pt seen in ICU intubated, currently undergoing HD, UF goal decreased due to hypotension, albumin already ordered. Objective - Vital Signs Vital signs: Vital Signs - 12hr 07/07/19 07/07/19 07/07/19 22:46 23:00 23:16 Temperature Pulse Rate 89 87 87 Pulse Rate [ Apical] Pulse Rate [ From Monitor] Respiratory 12 16 13 Rate Blood Pressure 120/60 113/58 113/58 O2 Sat by Pulse 100 99 Oximetry 07/07/19 07/07/19 07/07/19 23:30 23:40 23:44 Temperature 99.6 F Pulse Rate 84 85 Pulse Rate [ Apical] Pulse Rate [ From Monitor] Respiratory 13 Rate Blood Pressure 113/58 113/58 O2 Sat by Pulse 99 100 Oximetry 07/07/19 07/08/19 07/08/19 23:46 00:00 00:02 Temperature Pulse Rate 91 H 84 86 Pulse Rate [ 90 Apical] Pulse Rate [ 90 From Monitor] Respiratory 13 12 14 Rate Blood Pressure 113/58 116/62 116/62 O2 Sat by Pulse 99 98 98 Oximetry 07/08/19 07/08/19 07/08/19 00:16 00:30 00:46 Temperature Pulse Rate 88 89 88 Pulse Rate [ Apical] Pulse Rate [ From Monitor] Respiratory 13 19 14 Rate Blood Pressure 116/62 116/62 116/62 O2 Sat by Pulse 99 99 99 Oximetry 07/08/19 07/08/19 07/08/19 01:00 01:16 01:30 Temperature Pulse Rate 89 88 89 Pulse Rate [ Apical] Pulse Rate [ From Monitor] Respiratory 16 14 15 Rate Blood Pressure 124/62 124/62 124/62 O2 Sat by Pulse 98 98 Oximetry 07/08/19 07/08/19 07/08/19 01:46 02:00 02:16 Temperature Pulse Rate 92 H 90 87 Pulse Rate [ Apical] Pulse Rate [ From Monitor] Respiratory 19 17 13 Rate Blood Pressure 124/62 116/62 116/62 O2 Sat by Pulse 98 97 Oximetry 07/08/19 07/08/19 07/08/19 02:30 02:46 03:00 Temperature Pulse Rate 90 87 90 Pulse Rate [ Apical] Pulse Rate [ From Monitor] Respiratory 14 12 18 Rate Blood Pressure 116/62 116/62 117/60 O2 Sat by Pulse 96 98 Oximetry 07/08/19 07/08/19 07/08/19 03:16 03:30 03:46 Temperature Pulse Rate 90 88 88 Pulse Rate [ Apical] Pulse Rate [ From Monitor] Respiratory 16 18 14 Rate Blood Pressure 117/60 117/60 117/60 O2 Sat by Pulse 99 99 99 Oximetry 07/08/19 07/08/19 07/08/19 03:54 03:57 04:00 Temperature 98.2 F Pulse Rate 86 90 Pulse Rate [ 90 Apical] Pulse Rate [ 90 From Monitor] Respiratory 13 Rate Blood Pressure 117/60 110/61 O2 Sat by Pulse 99 98 Oximetry 07/08/19 07/08/19 07/08/19 04:16 04:30 04:46 Temperature Pulse Rate 88 89 90 Pulse Rate [ Apical] Pulse Rate [ From Monitor] Respiratory 12 12 18 Rate Blood Pressure 110/61 110/61 110/61 O2 Sat by Pulse 99 99 99 Oximetry 07/08/19 07/08/19 07/08/19 05:00 05:16 05:30 Temperature Pulse Rate 88 90 88 Pulse Rate [ Apical] Pulse Rate [ From Monitor] Respiratory 12 12 16 Rate Blood Pressure 110/60 110/60 110/60 O2 Sat by Pulse 96 100 100 Oximetry 07/08/19 07/08/19 07/08/19 05:46 06:00 08:00 Temperature 101.6 F H Pulse Rate 88 88 Pulse Rate [ Apical] Pulse Rate [ From Monitor] Respiratory 16 15 Rate Blood Pressure 110/60 119/63 O2 Sat by Pulse 100 Oximetry 07/08/19 09:37 Temperature Pulse Rate 86 Pulse Rate [ Apical] Pulse Rate [ From Monitor] Respiratory Rate Blood Pressure 109/60 O2 Sat by Pulse 99 Oximetry - General Appearance General appearance: intubated EENT: ATNC Neck: no JVD Respiratory: Present: Decreased Breath Sounds Cardiology: regular, S1S2, other (ACCESS: Left AVF in use) Gastrointestinal: normoactive bowel sounds (orogastric tube intact) Integumentary: warm and dry Neurologic: other (intubated) Musculoskeletal: other (no edema to BLE) Psychiatric: other (unable to assess) - Lab 07/08/19 04:38 07/08/19 04:38 Most recent lab results ABG pH 7.421 pH Units (7.350-7.450) 07/08/19 03:49 ABG pCO2 43.6 mm Hg 07/08/19 03:49 ABG pO2 116.2 mm Hg (80.0-90.0) H 07/08/19 03:49 ABG HCO3 27.7 mmol/L (20.0-26.0) H 07/08/19 03:49 ABG O2 Saturation 98.2 % (95.0-99.0) 07/08/19 03:49 Calcium 10.9 mg/dL (8.4-10.2) H 07/08/19 04:38 Phosphorus 4.10 mg/dL (2.5-4.5) 07/08/19 04:38 Medications & Allergies - Medications Allergies/Adverse Reactions: Allergies No Known Allergies Allergy (Verified 07/03/19 10:58) Home Medications: Home Medications Medication Instructions Recorded Confirmed Last Taken Type Amlodipine Besylate [Norvasc] 10 mg PO DAILY 06/24/19 07/04/19 Unknown History AtorvaSTATin [Lipitor] 20 mg PO QHS 06/24/19 07/04/19 Unknown History Bumetanide 1 mg PO DAILY 06/24/19 07/04/19 Unknown History Cinacalcet HCl 30 mg PO DAILY 06/24/19 07/04/19 Unknown History Divalproex Sodium [Depakote 500 mg PO BID 06/24/19 07/04/19 Unknown History Sprinkle] Lispro Insulin [HumaLOG] 0 - 200 unit SQ ACHS 06/24/19 07/04/19 Unknown History Vit B Comp No.3/Folic/C/Biotin 1 each PO DAILY 06/24/19 07/04/19 Unknown History [Nephro-Umu Rx Tablet] carvediloL [Coreg] 25 mg PO BID 06/24/19 07/04/19 Unknown History hydrALAZINE [Apresoline TAB] 50 mg PO Q8HR 06/24/19 07/04/19 Unknown History ALBUTEROL NEB's [Proventil 0.083% 2.5 mg IH TIDRT #30 nebu 06/30/19 07/04/19 Unknown Rx NEBS] Lactulose [Cephulac] 20 gm PO Q8HR oral.liqd 06/30/19 07/04/19 Unknown Rx Sevelamer Carbonate [Renvela] 800 mg PO TIDWM tablet 06/30/19 07/04/19 Unknown Rx risperiDONE [RisperDAL] 0.5 mg PO BID tablet 06/30/19 07/04/19 Unknown Rx Active Medications: Generic Name Dose Route Start Last Admin Trade Name Freq PRN Reason Stop Dose Admin Acetaminophen 650 mg 07/08/19 10:00 Tylenol CO Q4H PRN Pain, Mild (1-3) Albumin Human 25 gm 07/06/19 13:42 Alburx 25% (Albumin) IV FEDE PRN Hypotension Lipase/Protease/Amylase 1 each 07/05/19 16:[address] 10,500 Unit FEEDTUBE PRN PRN For Clogged Feeding Tube Dextrose 0 ml 07/03/19 04:34 D50w (25gm) Syringe IV Q30MIN PRN Hypoglycemia Protocol Famotidine 20 mg 07/07/19 10:00 07/08/19 10:32 Pepcid PO 20 mg DAILY YANG Administration Heparin Sodium (Porcine) 5,000 unit 07/03/19 10:00 07/08/19 10:32 Heparin SUB-Q 5,000 unit Q12HR YANG Administration Hydrophilic Ointment 1 applic 07/03/19 00:53 Vaseline Lip Therapy TP Q2HR PRN Dry Lips Fentanyl Citrate 2,000 mcg in 100 mls @ 2.608 mls/hr 07/03/19 01:00 07/04/19 18:10 Fentanyl Drip Premix IV Infused TITR YANG Titration Protocol 1 MCG/KG/HR Sodium Chloride 100 mls @ 999 mls/hr 07/05/19 13:41 Nacl 0.9% IV FEDE PRN Hypotension Meropenem 500 mg in 50 mls @ 50 mls/hr 07/07/19 14:00 07/08/19 10:32 Merrem/Ns 500 Mg/50 Ml IV 50 mls/hr Q12HR YANG Administration Insulin Glargine 10 units 07/07/19 10:00 07/08/19 10:32 Lantus SUB-Q 07/08/19 23:59 10 units DAILY YANG Administration Insulin Glargine 5 units 07/08/19 11:00 07/08/19 10:34 Lantus SUB-Q 07/08/19 11:01 5 units ONCE ONE Administration Insulin Glargine 15 units 07/09/19 10:00 Lantus SUB-Q DAILY YANG Insulin Human Lispro 0 unit 07/03/19 06:00 07/08/19 05:34 Humalog SUB-Q 6 unit Q6HR YANG Administration Protocol Multi-Ingred Cream/Lotion/Oil/Oint 1 applic 07/03/19 00:53 Artificial Tears Ophth Oint OU Q4HR PRN Dry Eye(s) Simple Syrup 15 ml 07/05/19 16:27 Simple Syrup FEEDTUBE PRN PRN Hypoglycemia Simple Syrup 30 ml 07/05/19 16:27 Simple Syrup FEEDTUBE PRN PRN Hypoglycemia Sodium Bicarbonate 325 mg 07/05/19 16:27 Sodium Bicarbonate FEEDTUBE PRN PRN For Clogged Feeding Tube Sodium Chloride 10 ml 07/03/19 10:00 07/08/19 10:33 Sodium Chloride Flush Syringe 10 Ml IV 10 ml BID YANG Administration Sodium Chloride 10 ml 07/03/19 04:34 07/05/19 10:42 Sodium Chloride Flush Syringe 10 Ml IV 10 ml PRN PRN Administration LINE FLUSH
[2019-07-08] MEDS ORDERED: INSULIN GLARGINE 100 UNITS/ML SUB-Q ONE (11:00)
[2019-07-08] MEDS: ALBUMIN HUMAN 25% (25 GM/100 ML) INJ IV PRN ×2 (11:10→11:59)
--- NOTE | 2019-07-08 12:55 | Progress Note ---
Assessment and Plan Cultures: 07/03/2019 blood culture: No growth 07/03/2019 tracheal aspirate culture: Usual respiratory leelee A/P: 59 yo F with ESRD on HD, diabetes, HTN, CHF, seizure, bipolar, depression and was recently hospitalized with altered mental status and found to have leukocytosis, now readmitted with respiratory distress and hypoxia: #Neutrophilic leukocytosis: source unclear. ?R sided air bronchogram on initial xray to suggest pneumonia. Looks better on CXR today. #Acute respiratory failure: on the vent. CHF v/s pneumonia. #ESRD on HD: renally dose abx. #Sacral decubitus ulcer: wound care. CT without evidence of fluid collection or osteomyelitis. #Acute encephalopathy: CT head on admission was unremarkable for acute process. Recs: continue renally adjusted IV Meropenem D2 wound care to sacral wound monitor WBC and fever Marilu Cervantes MD, FACP [facility] C: [phone] O: [phone] F: [phone] Subjective Date of service: 07/08/19 Principal diagnosis: Acute hypoxemic resp failure; AMS; Severe Sepsis; ESRD; CHF; HTN; Seizure Interval history: Patient continues to have intermittent. Remains intubated, in ICU. Getting dialysis. Objective - Exam Narrative Exam: Physical Exam: Constitutional: opens eyes, intubated Head, Ears, Nose: Normocephalic, atraumatic. External ears, nose normal Eyes: Conjunctivae/corneas clear. No icterus. No ptosis. Neck: intubated Oral: intubated Cardiovascular: S1, S2 normal. Respiratory: Good air entry, clear to auscultation bilaterally GI: Soft, non-tender; bowel sounds normal. No peritoneal signs. Musculoskeletal: No pedal edema, no cyanosis. Left forearm AVF Skin: Sacral decubitus with dressing Hem/Lymphatic: No palpable cervical or supraclavicular nodes. No lymphangitis Psych: no agitation Neurological: opens eyes, intubated, on vent - Constitutional Vitals: Vital Signs Temp Pulse Resp BP Pulse Ox 98.2 F 67 17 105/56 100 07/08/19 12:00 07/08/19 12:31 07/08/19 10:30 07/08/19 12:31 07/08/19 12:31 Temperature -Last 24 Hours Temperature 98.2 F Temperature 102.2 F Temperature 101.6 F Temperature 98.2 F Temperature 99.6 F Temperature 98.2 F Temperature 98.9 F Temperature 98.9 F Temperature 100.7 F - Labs CBC & Chem 7: 07/08/19 04:38 07/08/19 04:38 Labs: Abnormal lab results 07/07/19 07/07/19 07/07/19 Range/Units 11:39 18:09 23:30 WBC (4.5-11.0) K/mm3 RDW (13.2-15.2) % [place] % (Auto) (0.0-7.3) % [place] # (0.0-0.8) K/mm3 Seg Neutrophils % (40.0-70.0) % Seg Neutrophils # (1.8-7.7) K/mm3 ABG pO2 (80.0-90.0) mm Hg ABG HCO3 (20.0-26.0) mmol/L ABG Hemoglobin (12.0-16.0) gm/dl Chloride (98-107) mmol/L BUN (7-17) mg/dL Creatinine (0.7-1.2) mg/dL Glucose (65-100) mg/dL POC Glucose 309 H 280 H 398 H (70-105) Calcium (8.4-10.2) mg/dL 07/08/19 07/08/19 07/08/19 Range/Units 03:49 04:38 04:38 WBC 13.5 H (4.5-11.0) K/mm3 RDW 18.3 H (13.2-15.2) % [place] % (Auto) 9.5 H (0.0-7.3) % [place] # 1.3 H (0.0-0.8) K/mm3 Seg Neutrophils % 75.6 H (40.0-70.0) % Seg Neutrophils # 10.2 H (1.8-7.7) K/mm3 ABG pO2 116.2 H (80.0-90.0) mm Hg ABG HCO3 27.7 H (20.0-26.0) mmol/L ABG Hemoglobin 11.2 L (12.0-16.0) gm/dl Chloride 94.9 L (98-107) mmol/L BUN 64 H (7-17) mg/dL Creatinine 4.2 H (0.7-1.2) mg/dL Glucose 288 H (65-100) mg/dL POC Glucose (70-105) Calcium 10.9 H (8.4-10.2) mg/dL 07/08/19 07/08/19 Range/Units 05:37 11:47 WBC (4.5-11.0) K/mm3 RDW (13.2-15.2) % [place] % (Auto) (0.0-7.3) % [place] # (0.0-0.8) K/mm3 Seg Neutrophils % (40.0-70.0) % Seg Neutrophils # (1.8-7.7) K/mm3 ABG pO2 (80.0-90.0) mm Hg ABG HCO3 (20.0-26.0) mmol/L ABG Hemoglobin (12.0-16.0) gm/dl Chloride (98-107) mmol/L BUN (7-17) mg/dL Creatinine (0.7-1.2) mg/dL Glucose (65-100) mg/dL POC Glucose 270 H 211 H (70-105) Calcium (8.4-10.2) mg/dL
--- NOTE | 2019-07-08 13:01 | Progress Note ---
Assessment and Plan Acute hypoxemic respiratory failure on MVS Acute toxic metabolic encephalopathy Severe Sepsis ESRD on HD Congestive heart Failure Accelerated Hypertension H/O Seizure - VAP bundle addressed (aspiration precautions, HOB>40 degrees) -Lung protective strategies -wean FiO2 for O2 sats >90% - continue bronchodilators with pulmonary hygiene per RT - ABG reviewed and addressed - Daily SBT assessment as tolerated-PSV trials today - Continue enteral nutrition - HD/UF per nephrology for toxin and volume clearance - Empiric antibiotics therapies (de-escalate based on cultures and clinical condition)- currreiy on Meropenem. Cultures are negative at this time - continue VTE prophylaxis with heparin SQ - continue stress ulcer prophylaxis with Famotidine - accuchecks with glycemic control for SSI (While critically ill target blood glucose of 140-180 mg/dL; avoid hypoglycemia) Increase Lantus insulin dose to 15 units q daily - continue mobility protocols and off loading for pressure ulcer prevention - Monitor hemodynamics closely - Fluid restrictive strategies as tolerated by hemodynamics and by her renal function - continue to avoid nephrotoxins, dose all medications for CrCL and GFR - Monitor electrolyte profile closely and replete as indicated - Chronic home medications, continue same -PT/OT order placed - All other care per attending / other consultants CONDITION: CRITICAL PROGNOSIS: GUARDED CODE STATUS: FULL CODE The high probability of a clinically significant, sudden or life-threatening d eterioration of the [respiratory, cardiovascular, neurology, renal] system(s) required my full and direct attention, intervention and personal management. The aggregate critical care time was [35] minutes without overlap. Time includes spent on; [x] Data Review and interpretation [x] Patient assessment and monitoring of vital signs [x] Documentation [x] Medication orders and management Subjective Date of service: 07/08/19 Principal diagnosis: Acute hypoxemic resp failure; AMS; Severe Sepsis; ESRD; CHF; HTN; Seizure Interval history: Patient is seen today for: Acute hypoxemic respiratory failure on MVS;Acute toxic metabolic encephalopathy;Severe Sepsis; ESRD on HD Seen and examined at bedside; 24hour events reviewed; nursing and respiratory care staff consulted; no adverse overnight events reported to me; Vitals, labs, medications, chart reviewed. No fevers overnight but had a temperature spike to 101 this morning; no diarrhea, spontaneous eye opening but not obeying commands, currently on HD and tolerating it well. Tolerating tube feedings with sub-optimal glycemic control, no vomiting. Remains critically ill, orally intubated on MVS Currently on AC-12/400/6/35% with ABG 7.42/44/116 Objective Vital Signs - 12hr 07/08/19 07/08/19 07/08/19 01:16 01:30 01:46 Temperature Pulse Rate 88 89 92 H Pulse Rate [ Apical] Pulse Rate [ From Monitor] Respiratory 14 15 19 Rate Blood Pressure 124/62 124/62 124/62 O2 Sat by Pulse 98 98 98 Oximetry O2 Sat by Pulse Oximetry [ Anterior Bilateral Throughout] 07/08/19 07/08/19 07/08/19 02:00 02:16 02:30 Temperature Pulse Rate 90 87 90 Pulse Rate [ Apical] Pulse Rate [ From Monitor] Respiratory 17 13 14 Rate Blood Pressure 116/62 116/62 116/62 O2 Sat by Pulse 97 96 Oximetry O2 Sat by Pulse Oximetry [ Anterior Bilateral Throughout] 07/08/19 07/08/19 07/08/19 02:46 03:00 03:16 Temperature Pulse Rate 87 90 90 Pulse Rate [ Apical] Pulse Rate [ From Monitor] Respiratory 12 18 16 Rate Blood Pressure 116/62 117/60 117/60 O2 Sat by Pulse 98 99 Oximetry O2 Sat by Pulse Oximetry [ Anterior Bilateral Throughout] 07/08/19 07/08/19 07/08/19 03:30 03:46 03:54 Temperature Pulse Rate 88 88 86 Pulse Rate [ Apical] Pulse Rate [ From Monitor] Respiratory 18 14 Rate Blood Pressure 117/60 117/60 117/60 O2 Sat by Pulse 99 99 99 Oximetry O2 Sat by Pulse Oximetry [ Anterior Bilateral Throughout] 07/08/19 07/08/19 07/08/19 03:57 04:00 04:16 Temperature 98.2 F Pulse Rate 90 88 Pulse Rate [ 90 Apical] Pulse Rate [ 90 From Monitor] Respiratory 13 12 Rate Blood Pressure 110/61 110/61 O2 Sat by Pulse 98 99 Oximetry O2 Sat by Pulse Oximetry [ Anterior Bilateral Throughout] 07/08/19 07/08/19 07/08/19 04:30 04:46 05:00 Temperature Pulse Rate 89 90 88 Pulse Rate [ Apical] Pulse Rate [ From Monitor] Respiratory 12 18 12 Rate Blood Pressure 110/61 110/61 110/60 O2 Sat by Pulse 99 99 96 Oximetry O2 Sat by Pulse Oximetry [ Anterior Bilateral Throughout] 07/08/19 07/08/19 07/08/19 05:16 05:30 05:46 Temperature Pulse Rate 90 88 88 Pulse Rate [ Apical] Pulse Rate [ From Monitor] Respiratory 12 16 16 Rate Blood Pressure 110/60 110/60 110/60 O2 Sat by Pulse 100 100 100 Oximetry O2 Sat by Pulse Oximetry [ Anterior Bilateral Throughout] 07/08/19 07/08/19 07/08/19 06:00 08:00 09:37 Temperature 101.6 F H Pulse Rate 88 86 Pulse Rate [ Apical] Pulse Rate [ From Monitor] Respiratory 15 Rate Blood Pressure 119/63 109/60 O2 Sat by Pulse 99 Oximetry O2 Sat by Pulse Oximetry [ Anterior Bilateral Throughout] 07/08/19 07/08/19 07/08/19 10:30 10:45 11:00 Temperature 102.2 F H Pulse Rate 85 77 85 Pulse Rate [ Apical] Pulse Rate [ From Monitor] Respiratory 17 Rate Blood Pressure 113/60 104/60 94/57 O2 Sat by Pulse Oximetry O2 Sat by Pulse 100 Oximetry [ Anterior Bilateral Throughout] 07/08/19 07/08/19 07/08/19 11:15 11:30 11:45 Temperature Pulse Rate 91 H 90 80 Pulse Rate [ Apical] Pulse Rate [ From Monitor] Respiratory Rate Blood Pressure 96/51 81/49 86/52 O2 Sat by Pulse Oximetry O2 Sat by Pulse Oximetry [ Anterior Bilateral Throughout] 07/08/19 07/08/19 07/08/19 11:54 12:00 12:07 Temperature 98.2 F Pulse Rate 78 75 72 Pulse Rate [ Apical] Pulse Rate [ From Monitor] Respiratory Rate Blood Pressure 89/50 103/56 97/54 O2 Sat by Pulse Oximetry O2 Sat by Pulse Oximetry [ Anterior Bilateral Throughout] 07/08/19 07/08/19 07/08/19 12:15 12:30 12:31 Temperature Pulse Rate 71 68 67 Pulse Rate [ Apical] Pulse Rate [ From Monitor] Respiratory Rate Blood Pressure 104/56 105/56 105/56 O2 Sat by Pulse 100 Oximetry O2 Sat by Pulse Oximetry [ Anterior Bilateral Throughout] 07/08/19 12:45 Temperature Pulse Rate 70 Pulse Rate [ Apical] Pulse Rate [ From Monitor] Respiratory Rate Blood Pressure 105/56 O2 Sat by Pulse Oximetry O2 Sat by Pulse Oximetry [ Anterior Bilateral Throughout] Constitutional: no acute distress, other (middle aged thin female, normocephalic riding set rate on MVS, spontaneous eye opening) Eyes: non-icteric ENT: oropharynx dry, other (ETT 23 cm JORY) Neck: supple, no lymphadenopathy, no JVD Effort: normal Ascultation: Bilateral: diminished breath sounds, rhonchi Percussion: Bilateral: not dull Cardiovascular: regular rate and rhythm, other (S1,S2, no murmurs) Gastrointestinal: normoactive bowel sounds, soft, non-tender, non-distended Integumentary: normal Extremities: no cyanosis, no edema, pink and warm, pulses normal Neurologic: unable to assess Psychiatric: other (unable to assess re: AMS) CBC and BMP: 07/08/19 04:38 07/08/19 04:38 ABG, PT/INR, D-dimer: ABG ABG pH 7.421 pH Units (7.350-7.450) 07/08/19 03:49 ABG pCO2 43.6 mm Hg 07/08/19 03:49 ABG pO2 116.2 mm Hg (80.0-90.0) H 07/08/19 03:49 ABG O2 Saturation 98.2 % (95.0-99.0) 07/08/19 03:49 Abnormal lab findings: Abnormal Labs 07/03/19 07/03/19 07/03/19 01:00 01:00 01:00 WBC 17.9 H RDW 17.8 H Lymph % (Auto) 11.7 L [place] % (Auto) [place] # 1.0 H Seg Neutrophils % 82.1 H Seg Neutrophils # 14.7 H ABG pH ABG pO2 ABG HCO3 ABG O2 Saturation ABG Base Excess ABG Hemoglobin Oxyhemoglobin Chloride 92.9 L Carbon Dioxide BUN 45 H Creatinine 5.3 H Glucose 229 H POC Glucose Hemoglobin A1c Calcium 10.5 H Phosphorus NT-Pro-B Natriuret Pep > 85132 H Albumin 2.5 L 07/03/19 07/03/19 07/03/19 01:00 01:35 04:30 WBC RDW Lymph % (Auto) [place] % (Auto) [place] # Seg Neutrophils % Seg Neutrophils # ABG pH 7.555 H 7.489 H ABG pO2 65.4 L 149.9 H ABG HCO3 28.9 H 27.9 H ABG O2 Saturation ABG Base Excess 6.7 H 4.5 H ABG Hemoglobin Oxyhemoglobin 94.0 L Chloride Carbon Dioxide BUN Creatinine Glucose POC Glucose Hemoglobin A1c 7.0 H Calcium Phosphorus NT-Pro-B Natriuret Pep Albumin 07/03/19 07/03/19 07/03/19 12:10 17:35 23:59 WBC RDW Lymph % (Auto) [place] % (Auto) [place] # Seg Neutrophils % Seg Neutrophils # ABG pH ABG pO2 ABG HCO3 ABG O2 Saturation ABG Base Excess ABG Hemoglobin Oxyhemoglobin Chloride Carbon Dioxide BUN Creatinine Glucose POC Glucose 246 H 163 H 112 H Hemoglobin A1c Calcium Phosphorus NT-Pro-B Natriuret Pep Albumin 07/04/19 07/04/19 07/04/19 04:24 04:56 04:56 WBC 17.3 H RDW 18.0 H Lymph % (Auto) 8.7 L [place] % (Auto) [place] # 0.9 H Seg Neutrophils % 85.1 H Seg Neutrophils # 14.8 H ABG pH 7.496 H ABG pO2 74.0 L ABG HCO3 28.1 H ABG O2 Saturation ABG Base Excess 4.7 H ABG Hemoglobin Oxyhemoglobin 93.9 L Chloride 95.5 L Carbon Dioxide BUN 26 H Creatinine 3.4 H Glucose 145 H POC Glucose Hemoglobin A1c Calcium Phosphorus NT-Pro-B Natriuret Pep Albumin 07/04/19 07/04/19 07/05/19 07:04 17:56 01:45 WBC RDW Lymph % (Auto) [place] % (Auto) [place] # Seg Neutrophils % Seg Neutrophils # ABG pH ABG pO2 ABG HCO3 ABG O2 Saturation ABG Base Excess ABG Hemoglobin Oxyhemoglobin Chloride Carbon Dioxide BUN Creatinine Glucose POC Glucose 162 H 273 H 148 H Hemoglobin A1c Calcium Phosphorus NT-Pro-B Natriuret Pep Albumin 07/05/19 07/05/19 07/05/19 03:07 03:07 05:57 WBC 18.7 H RDW 17.7 H Lymph % (Auto) 7.6 L [place] % (Auto) [place] # 1.2 H Seg Neutrophils % 84.2 H Seg Neutrophils # 15.7 H ABG pH ABG pO2 ABG HCO3 ABG O2 Saturation ABG Base Excess ABG Hemoglobin Oxyhemoglobin Chloride 94.7 L 95.6 L Carbon Dioxide 19 L BUN 23 H 26 H Creatinine 2.7 H 2.9 H Glucose 161 H 179 H POC Glucose Hemoglobin A1c Calcium 10.3 H 10.5 H Phosphorus 5.20 H D NT-Pro-B Natriuret Pep Albumin 07/05/19 07/05/19 07/05/19 06:50 07:52 09:06 WBC 16.8 H RDW 18.1 H Lymph % (Auto) 8.0 L [place] % (Auto) [place] # 1.1 H Seg Neutrophils % 84.4 H Seg Neutrophils # 14.2 H ABG pH ABG pO2 ABG HCO3 ABG O2 Saturation ABG Base Excess ABG Hemoglobin 11.7 L Oxyhemoglobin 94.6 L Chloride Carbon Dioxide BUN Creatinine Glucose POC Glucose 195 H Hemoglobin A1c Calcium Phosphorus NT-Pro-B Natriuret Pep Albumin 07/05/19 07/05/19 07/06/19 12:26 17:53 01:03 WBC RDW Lymph % (Auto) [place] % (Auto) [place] # Seg Neutrophils % Seg Neutrophils # ABG pH ABG pO2 ABG HCO3 ABG O2 Saturation ABG Base Excess ABG Hemoglobin Oxyhemoglobin Chloride Carbon Dioxide BUN Creatinine Glucose POC Glucose 222 H 214 H 217 H Hemoglobin A1c Calcium Phosphorus NT-Pro-B Natriuret Pep Albumin 07/06/19 07/06/19 07/06/19 03:45 04:37 04:37 WBC 15.7 H RDW 17.9 H Lymph % (Auto) 9.3 L [place] % (Auto) 8.2 H [place] # 1.3 H Seg Neutrophils % 81.5 H Seg Neutrophils # 12.8 H ABG pH ABG pO2 67.1 L ABG HCO3 ABG O2 Saturation 93.3 L ABG Base Excess ABG Hemoglobin Oxyhemoglobin 91.2 L Chloride 97.5 L Carbon Dioxide 20 L BUN 50 H Creatinine 4.5 H D Glucose 192 H POC Glucose Hemoglobin A1c Calcium Phosphorus 5.80 H NT-Pro-B Natriuret Pep Albumin 07/06/19 07/06/19 07/06/19 06:10 13:47 18:40 WBC RDW Lymph % (Auto) [place] % (Auto) [place] # Seg Neutrophils % Seg Neutrophils # ABG pH ABG pO2 ABG HCO3 ABG O2 Saturation ABG Base Excess ABG Hemoglobin Oxyhemoglobin Chloride Carbon Dioxide BUN Creatinine Glucose POC Glucose 214 H 233 H 225 H Hemoglobin A1c Calcium Phosphorus NT-Pro-B Natriuret Pep Albumin 07/07/19 07/07/19 07/07/19 00:11 04:30 05:33 WBC RDW Lymph % (Auto) [place] % (Auto) [place] # Seg Neutrophils % Seg Neutrophils # ABG pH ABG pO2 113.7 H ABG HCO3 28.6 H ABG O2 Saturation ABG Base Excess 4.0 H ABG Hemoglobin 11.3 L Oxyhemoglobin Chloride Carbon Dioxide BUN Creatinine Glucose POC Glucose 288 H 204 H Hemoglobin A1c Calcium Phosphorus NT-Pro-B Natriuret Pep Albumin 07/07/19 07/07/19 07/07/19 05:38 05:38 11:39 WBC 15.0 H RDW 18.3 H Lymph % (Auto) 10.9 L [place] % (Auto) 8.9 H [place] # 1.3 H Seg Neutrophils % 79.6 H Seg Neutrophils # 11.9 H ABG pH ABG pO2 ABG HCO3 ABG O2 Saturation ABG Base Excess ABG Hemoglobin Oxyhemoglobin Chloride 94.8 L Carbon Dioxide BUN 32 H Creatinine 2.8 H Glucose 236 H POC Glucose 309 H Hemoglobin A1c Calcium 10.6 H Phosphorus NT-Pro-B Natriuret Pep Albumin 07/07/19 07/07/19 07/08/19 18:09 23:30 03:49 WBC RDW Lymph % (Auto) [place] % (Auto) [place] # Seg Neutrophils % Seg Neutrophils # ABG pH ABG pO2 116.2 H ABG HCO3 27.7 H ABG O2 Saturation ABG Base Excess ABG Hemoglobin 11.2 L Oxyhemoglobin Chloride Carbon Dioxide BUN Creatinine Glucose POC Glucose 280 H 398 H Hemoglobin A1c Calcium Phosphorus NT-Pro-B Natriuret Pep Albumin 07/08/19 07/08/19 07/08/19 04:38 04:38 05:37 WBC 13.5 H RDW 18.3 H Lymph % (Auto) [place] % (Auto) 9.5 H [place] # 1.3 H Seg Neutrophils % 75.6 H Seg Neutrophils # 10.2 H ABG pH ABG pO2 ABG HCO3 ABG O2 Saturation ABG Base Excess ABG Hemoglobin Oxyhemoglobin Chloride 94.9 L Carbon Dioxide BUN 64 H Creatinine 4.2 H Glucose 288 H POC Glucose 270 H Hemoglobin A1c Calcium 10.9 H Phosphorus NT-Pro-B Natriuret Pep Albumin 07/08/19 11:47 WBC RDW Lymph % (Auto) [place] % (Auto) [place] # Seg Neutrophils % Seg Neutrophils # ABG pH ABG pO2 ABG HCO3 ABG O2 Saturation ABG Base Excess ABG Hemoglobin Oxyhemoglobin Chloride Carbon Dioxide BUN Creatinine Glucose POC Glucose 211 H Hemoglobin A1c Calcium Phosphorus NT-Pro-B Natriuret Pep Albumin Allied health notes reviewed: nursing
[2019-07-09] MEDS: INSULIN LISPRO 100 UNIT/ML SUB-Q SCH ×4 (00:57→18:36)
--- NOTE | 2019-07-09 03:15 | XRay Report ---
CHEST 1 VIEW INDICATION / CLINICAL INFORMATION: follow up respiratory failure. COMPARISON: 07/08/2019 FINDINGS: SUPPORT DEVICES: Nasogastric tube and endotracheal tube appear unchanged HEART / MEDIASTINUM: Unchanged LUNGS / PLEURA: Lungs appear unchanged. Patchy airspace opacities persist.. No pneumothorax. ADDITIONAL FINDINGS: No significant additional findings. IMPRESSION: 1. No significant change. Signer Name: Salazar Torres MD Signed: 07/09/2019 3:10 AM Workstation Name: [id number]
[2019-07-09 04:52] LABS: ABG Base Excess 7.8 mmol/L (-2.0-3.0); ABG HCO3 32.3 mmol/L (20.0-26.0); ABG Methemoglobin 0.4 % (0.0-1.5); ABG Oxygen Saturation 98.8 % (95.0-99.0); ABG PCO2 45.4 mm Hg; ABG PH 7.471 pH Units (7.350-7.450); ABG PO2 141.8 mm Hg (80.0-90.0)
[2019-07-09 05:13] LABS: Basophils # (Auto) 0.1 K/mm3 (0.0-0.1); Basophils % (Auto) 0.5 % (0.0-1.8); Eosinophils # (Auto) 0.2 K/mm3 (0.0-0.4); Eosinophils % (Auto) 1.6 % (0.0-4.3); Hematocrit 32.1 % (30.3-42.9); Hemoglobin 10.4 gm/dl (10.1-14.3); Lymphocytes # (Auto) 1.6 K/mm3 (1.2-5.4); Lymphocytes % (Auto) 12.5 % (13.4-35.0); Mean Corpuscular HGB Conc 32 % (30-34); Mean Corpuscular Volume 88 fl (79-97); Monocytes # (Auto) 1.1 K/mm3 (0.0-0.8); Monocytes % (Auto) 8.4 % (0.0-7.3); Platelet Count 304 K/mm3 (140-440); Red Blood Count 3.65 M/mm3 (3.65-5.03); Red Cell Distribution Width 17.7 % (13.2-15.2)
--- NOTE | 2019-07-09 10:03 | Progress Note ---
Assessment and Plan Assessment and plan: Sepsis -CXR unremarkable -Leukocytosis present -Continue antibiotic, Merrem -Blood cultures negative x 72-hours Acute hypoxic respiratory failure -Continue mechanical ventilation per pulmonary.. Toxic metabolic encephalopathy -Neuro checks -Continue to treat underlying causes. ESRD on HD -M/W/F -Avoid nephrotoxic agents -Renal dose all meds -Nephrology following Congestive heart Failure -BNP >57833 on admission -Monitor input and output. -Cardiology following and reported no evidence of volume overload Hypertension -Continue to monitor BP Insulin-dependent diabetes -POC BG monitoring -SSI coverage prn Hx Seizure -Continue anticonvulsant meds -Seizure precautions. DVT PPX -On Heparin The high probability of a clinically significant, sudden or life threatening deterioration of the [respiratory] system(s) required my full and direct attention, intervention and personal management. The aggregate critical care time was [34] minutes. This time is in addition to time spent performing reported procedures but includes the following: [x] Data Review and interpretation [x] Patient assessment and monitoring of vital signs [x] Documentation [x] Medication orders and management History Interval history: Patient intubated, Fever yesterday Hospitalist Physical - Physical exam Narrative exam: GEN: Not in acute distress, intubated, on vent HEENT: Normocephalic, atraumatic, Neck: supple, No JVD Lungs: Bilateral rhonchi, heart;S1 and S2 reg, no murmurs Abd:soft, non tender, non distended, normal bowel sounds Ext: No edema, no clubbing, no cyanosis Neuro: Intubated, sedated - Constitutional Vitals: Temp Pulse Resp BP Pulse Ox 99.6 F 79 14 130/66 100 07/09/19 03:58 07/09/19 08:54 07/09/19 06:00 07/09/19 08:54 07/09/19 08:54 General appearance: Present: other (intubated on the vent) DANIELLE score - Danielle Score Age > 65: (0) No Aspirin use within the Past 7 Days: (0) No 3 or more CAD Risk Factors: (1) Yes 2 or more Angina events in past 24 hrs: (0) No Known CAD with more than 50% Stenosis: (0) No Elevated Cardiac Markers: (1) Yes ST Deviation Greater than 0.5mm: (0) No DANIELLE Score: 2 Results - Labs CBC & Chem 7: 07/09/19 04:29 07/09/19 04:29 Labs: Laboratory Last Values WBC 12.8 K/mm3 (4.5-11.0) H 07/09/19 04:29 RBC 3.65 M/mm3 (3.65-5.03) 07/09/19 04:29 Hgb 10.4 gm/dl (10.1-14.3) 07/09/19 04:29 Hct 32.1 % (30.3-42.9) 07/09/19 04:29 MCV 88 fl (79-97) 07/09/19 04:29 MCH 28 pg (28-32) 07/09/19 04:29 MCHC 32 % (30-34) 07/09/19 04:29 RDW 17.7 % (13.2-15.2) H 07/09/19 04:29 Plt Count 304 K/mm3 (140-440) 07/09/19 04:29 Lymph % (Auto) 12.5 % (13.4-35.0) L 07/09/19 04:29 [place] % (Auto) 8.4 % (0.0-7.3) H 07/09/19 04:29 Eos % (Auto) 1.6 % (0.0-4.3) 07/09/19 04:29 Baso % (Auto) 0.5 % (0.0-1.8) 07/09/19 04:29 Lymph # 1.6 K/mm3 (1.2-5.4) 07/09/19 04:29 [place] # 1.1 K/mm3 (0.0-0.8) H 07/09/19 04:29 Eos # 0.2 K/mm3 (0.0-0.4) 07/09/19 04:29 Baso # 0.1 K/mm3 (0.0-0.1) 07/09/19 04:29 Seg Neutrophils % 77.0 % (40.0-70.0) H 07/09/19 04:29 Seg Neutrophils # 9.9 K/mm3 (1.8-7.7) H 07/09/19 04:29 ABG pH 7.471 pH Units (7.350-7.450) H 07/09/19 04:08 ABG pCO2 45.4 mm Hg 07/09/19 04:08 ABG pO2 141.8 mm Hg (80.0-90.0) H 07/09/19 04:08 ABG HCO3 32.3 mmol/L (20.0-26.0) H 07/09/19 04:08 ABG O2 Saturation 98.8 % (95.0-99.0) 07/09/19 04:08 ABG O2 Content 15.6 (0.0-44) 07/09/19 04:08 ABG Base Excess 7.8 mmol/L (-2.0-3.0) H 07/09/19 04:08 ABG Hemoglobin 11.3 gm/dl (12.0-16.0) L 07/09/19 04:08 ABG Carboxyhemoglobin 1.5 % (0.0-5.0) 07/09/19 04:08 ABG Methemoglobin 0.4 % (0.0-1.5) 07/09/19 04:08 Oxyhemoglobin 96.9 % (95.0-99.0) 07/09/19 04:08 FiO2 35 % 07/09/19 04:08 Sodium 139 mmol/L (137-145) 07/09/19 04:29 Potassium 3.9 mmol/L (3.6-5.0) 07/09/19 04:29 Chloride 94.1 mmol/L (98-107) L 07/09/19 04:29 Carbon Dioxide 28 mmol/L (22-30) 07/09/19 04:29 Anion Gap 21 mmol/L 07/09/19 04:29 BUN 36 mg/dL (7-17) H 07/09/19 04:29 Creatinine 2.6 mg/dL (0.7-1.2) H 07/09/19 04:29 Estimated GFR 19 ml/min 07/09/19 04:29 BUN/Creatinine Ratio 14 % 07/09/19 04:29 Glucose 217 mg/dL (65-100) H 07/09/19 04:29 POC Glucose 190 (70-105) H 07/09/19 05:25 Hemoglobin A1c 7.0 % (4-6) H 07/03/19 01:00 Lactic Acid 1.20 mmol/L (0.7-2.0) 07/03/19 04:13 Calcium 11.0 mg/dL (8.4-10.2) H 07/09/19 04:29 Phosphorus 2.60 mg/dL (2.5-4.5) D 07/09/19 04:29 Total Bilirubin 0.30 mg/dL (0.1-1.2) 07/03/19 01:00 AST 22 units/L (5-40) 07/03/19 01:00 ALT 9 units/L (7-56) 07/03/19 01:00 Alkaline Phosphatase 101 units/L (35-129) 07/03/19 01:00 Ammonia 35.0 umol/L (25-60) 07/03/19 01:58 NT-Pro-B Natriuret Pep > 60804 pg/mL (0-900) H 07/03/19 01:00 Total Protein 7.0 g/dL (6.3-8.2) 07/03/19 01:00 Albumin 2.5 g/dL (3.9-5) L 07/03/19 01:00 Albumin/Globulin Ratio 0.6 % 07/03/19 01:00 TSH 2.600 mlU/mL (0.270-4.200) 07/03/19 01:00 Urine Color Yellow (Yellow) 07/03/19 Unknown Urine Turbidity Clear (Clear) 07/03/19 Unknown Urine pH 6.0 (5.0-7.0) 07/03/19 Unknown Ur Specific [place] 1.012 (1.003-1.030) 07/03/19 Unknown Urine Protein >500 mg/dL (Negative) 07/03/19 Unknown Urine Glucose (UA) >=500 mg/dL (Negative) 07/03/19 Unknown Urine Ketones Neg mg/dL (Negative) 07/03/19 Unknown Urine Blood Neg (Negative) 07/03/19 Unknown Urine Nitrite Neg (Negative) 07/03/19 Unknown Ur Reducing Substances Not Reportable 07/03/19 Unknown Urine Bilirubin Neg (Negative) 07/03/19 Unknown Urine Ictotest Not Reportable 07/03/19 Unknown Urine Urobilinogen < 2.0 mg/dL (<2.0) 07/03/19 Unknown Ur Leukocyte Esterase Neg (Negative) 07/03/19 Unknown Urine WBC (Auto) 1.0 /HPF (0.0-6.0) 07/03/19 Unknown Urine RBC (Auto) 2.0 /HPF (0.0-6.0) 07/03/19 Unknown U Epithel Cells (Auto) < 1.0 /HPF (0-13.0) 07/03/19 Unknown Urine Mucus Few /HPF 07/03/19 Unknown Random Vancomycin 18.7 ug/mL (0-40.0) 07/08/19 04:38 Influenza A (Rapid) Negative (Negative) 07/05/19 14:30 Influenza B (Rapid) Negative (Negative) 07/05/19 14:30 Active Medications - Current Medications Current Medications: Generic Name Dose Route Start Last Admin Trade Name Freq PRN Reason Stop Dose Admin Acetaminophen 650 mg 07/08/19 10:00 Tylenol IA Q4H PRN Pain, Mild (1-3) Albumin Human 25 gm 07/06/19 13:42 07/08/19 11:59 Alburx 25% (Albumin) IV 25 gm FEDE PRN Administration Hypotension Lipase/Protease/Amylase 1 each 07/05/19 16:[address] 10,500 Unit FEEDTUBE PRN PRN For Clogged Feeding Tube Dextrose 0 ml 07/03/19 04:34 D50w (25gm) Syringe IV Q30MIN PRN Hypoglycemia Protocol Famotidine 20 mg 07/07/19 10:00 07/08/19 10:32 Pepcid PO 20 mg DAILY YANG Administration Heparin Sodium (Porcine) 5,000 unit 07/03/19 10:00 07/08/19 22:49 Heparin SUB-Q 5,000 unit Q12HR YANG Administration Hydrophilic Ointment 1 applic 07/03/19 00:53 Vaseline Lip Therapy TP Q2HR PRN Dry Lips Fentanyl Citrate 2,000 mcg in 100 mls @ 2.608 mls/hr 07/03/19 01:00 07/04/19 18:10 Fentanyl Drip Premix IV Infused TITR YANG Titration Protocol 1 MCG/KG/HR Sodium Chloride 100 mls @ 999 mls/hr 07/05/19 13:41 Nacl 0.9% IV FEDE PRN Hypotension Meropenem 500 mg in 50 mls @ 50 mls/hr 07/07/19 14:00 07/08/19 22:49 Merrem/Ns 500 Mg/50 Ml IV 50 mls/hr Q12HR YANG Administration Insulin Glargine 15 units 07/09/19 10:00 Lantus SUB-Q DAILY YANG Insulin Human Lispro 0 unit 07/03/19 06:00 07/09/19 06:12 Humalog SUB-Q 3 unit Q6HR YANG Administration Protocol Multi-Ingred Cream/Lotion/Oil/Oint 1 applic 07/03/19 00:53 Artificial Tears Ophth Oint OU Q4HR PRN Dry Eye(s) Simple Syrup 15 ml 07/05/19 16:27 Simple Syrup FEEDTUBE PRN PRN Hypoglycemia Simple Syrup 30 ml 07/05/19 16:27 Simple Syrup FEEDTUBE PRN PRN Hypoglycemia Sodium Bicarbonate 325 mg 07/05/19 16:27 Sodium Bicarbonate FEEDTUBE PRN PRN For Clogged Feeding Tube Sodium Chloride 10 ml 07/03/19 10:00 07/08/19 22:50 Sodium Chloride Flush Syringe 10 Ml IV 10 ml BID YANG Administration Sodium Chloride 10 ml 07/03/19 04:34 07/05/19 10:42 Sodium Chloride Flush Syringe 10 Ml IV 10 ml PRN PRN Administration LINE FLUSH Nutrition/Malnutrition Assess - Dietary Evaluation Nutrition/Malnutrition Findings: Nutrition Notes Start: 07/06/19 08:50 Freq: Status: Active Protocol: Document 07/07/19 12:40 CW (Rec: 07/07/19 12:51 CW [id number]) Co-Sign 07/07/19 12:40 LP Nutrition Notes Initial or Follow up Reassessment Current Diagnosis CKD (stage V CKD),Decubitus( Pressure Ulcer),Diabetes,Heart Failure,Respiratory Failure Other Pertinent Diagnosis on HD, Sacral PU, seizures, bipolar disorder, metabolic encephalopathy Current Diet Nepro 1.8 at 35 ml/hr Labs/Tests BG 236 Pertinent Medications Humalog Lantus Height 5 ft 2 in Weight 49.1 kg [place] Body Weight (kg) 50.00 BMI 19.8 Weight change and time frame 5.7 (12%) kg wt loss in 1 day likely D/T fluid loss Weight Status Appropriate Subjective/Other Information F/U for TF tolerance. Nepro 1. 8 currently running at 30 ml/ hr. RN stated that she will advance TF to goal rate of 35 ml/hr. Burn Absent Trauma Absent GI Symptoms None Current % PO Negligible Minimum of two criteria No physical signs of malnutrition #2 Nutrition Diagnosis Increased nutrient needs ( specify in comment below) Comments: Protein Diagnosis Progress(for reassessment Continues documentation) #1 Nutrition Diagnosis Inadequate oral intake Diagnosis Progress(for reassessment Continues documentation) Is patient on ventilator? Yes Is Patient Ambulatory and/or Out of Bed No REE-([facility]-confined to bed) 1234.080 Kcal/Kg value to use for calculation 30 Approximate Energy Requirements Using 1473 kcal/Kg Calculation Used for Recommendations [facility] Additional Notes Protein: 59 -98g (1.2-2g/kg) Fluid: 1-1.5 L/ day Nutrition Intervention Change Diet Order: TF Nutrition Support: Nepro 1.8 at 35ml/hr Flush 150 ml q4h Kcal 1,512 Protein (gm) 68 Fluid (mL) 611 Goal #1 TF tolerance Goal #2 Wound healing Anticipated Discharge Needs: unable to determine at this time Follow-Up By: 07/09/19 Additional Comments F/U for TF tolerance and stable wt.
[2019-07-09] MEDS: MEROPENEM/NS 500 MG/50 ML 500 MG/50 ML BAG IV SCH ×2 (10:29→22:16)
[2019-07-09] MEDS: FAMOTIDINE 20 MG TAB PO SCH (10:29)
[2019-07-09] MEDS: INSULIN GLARGINE 100 UNITS/ML SUB-Q SCH (10:29)
[2019-07-09] MEDS: HEPARIN 5,000 UNIT/1 ML VIAL SUB-Q SCH ×2 (10:30→22:17)
[2019-07-09 10:56] LABS: ABG HCO3 30.9 mmol/L (20.0-26.0); ABG Methemoglobin 0.4 % (0.0-1.5); ABG Oxygen Saturation 98.1 % (95.0-99.0); ABG PCO2 46.7 mm Hg; ABG PH 7.439 pH Units (7.350-7.450); ABG PO2 113.2 mm Hg (80.0-90.0)
--- NOTE | 2019-07-09 12:20 | Progress Note ---
Assessment and Plan Cultures: 07/03/2019 blood culture: No growth 07/03/2019 tracheal aspirate culture: Usual respiratory leelee A/P: 59 yo F with ESRD on HD, diabetes, HTN, CHF, seizure, bipolar, depression and was recently hospitalized with altered mental status and found to have leukocytosis, now readmitted with respiratory distress and hypoxia: #Neutrophilic leukocytosis: source unclear. ?pneumonia, cellulitis around sacral decubitus. Cultures negative. On empiric Meropenem given recent hospitalization and exposure to antibiotics. #Acute respiratory failure: on the vent. CHF v/s pneumonia. #ESRD on HD: renally dose abx. #Sacral decubitus ulcer: wound care. CT without evidence of fluid collection or osteomyelitis. #Acute encephalopathy: CT head on admission was unremarkable for acute process. Recs: continue renally adjusted IV Meropenem D3 wound care to sacral wound monitor WBC and fever Marilu Cervantes MD, FACP [facility] C: [phone] O: [phone] F: [phone] Subjective Date of service: 07/09/19 Principal diagnosis: Acute hypoxemic resp failure; AMS; Severe Sepsis; ESRD; CHF; HTN; Seizure Interval history: Fever yesterday, none today. Remains intubated, in ICU. Objective - Exam Narrative Exam: Physical Exam: Constitutional: opens eyes, intubated Head, Ears, Nose: Normocephalic, atraumatic. External ears, nose normal Eyes: Conjunctivae/corneas clear. No icterus. No ptosis. Neck: intubated Oral: intubated Cardiovascular: S1, S2 normal. Respiratory: Good air entry, clear to auscultation bilaterally GI: Soft, non-tender; bowel sounds normal. No peritoneal signs. Musculoskeletal: No pedal edema, no cyanosis. Left forearm AVF Skin: Sacral decubitus with dressing Hem/Lymphatic: No palpable cervical or supraclavicular nodes. No lymphangitis Psych: no agitation Neurological: opens eyes, intubated, on vent - Constitutional Vitals: Vital Signs Temp Pulse Resp BP Pulse Ox 97.6 F 76 36 H 128/67 100 07/09/19 08:00 07/09/19 11:24 07/09/19 11:00 07/09/19 11:24 07/09/19 11:24 Temperature -Last 24 Hours Temperature 97.6 F Temperature 97.6 F Temperature 99.6 F Temperature 98.9 F Temperature 97.4 F - Labs CBC & Chem 7: 07/09/19 04:29 07/09/19 04:29 Labs: Abnormal lab results 07/08/19 07/08/19 07/09/19 Range/Units 17:36 23:23 04:08 WBC (4.5-11.0) K/mm3 RDW (13.2-15.2) % Lymph % (Auto) (13.4-35.0) % Deuel % (Auto) (0.0-7.3) % Deuel # (0.0-0.8) K/mm3 Seg Neutrophils % (40.0-70.0) % Seg Neutrophils # (1.8-7.7) K/mm3 ABG pH 7.471 H (7.350-7.450) pH Units ABG pO2 141.8 H (80.0-90.0) mm Hg ABG HCO3 32.3 H (20.0-26.0) mmol/L ABG Base Excess 7.8 H (-2.0-3.0) mmol/L ABG Hemoglobin 11.3 L (12.0-16.0) gm/dl Chloride (98-107) mmol/L BUN (7-17) mg/dL Creatinine (0.7-1.2) mg/dL Glucose (65-100) mg/dL POC Glucose 259 H 276 H (70-105) Calcium (8.4-10.2) mg/dL 07/09/19 07/09/19 07/09/19 Range/Units 04:29 04:29 05:25 WBC 12.8 H (4.5-11.0) K/mm3 RDW 17.7 H (13.2-15.2) % Lymph % (Auto) 12.5 L (13.4-35.0) % Deuel % (Auto) 8.4 H (0.0-7.3) % Deuel # 1.1 H (0.0-0.8) K/mm3 Seg Neutrophils % 77.0 H (40.0-70.0) % Seg Neutrophils # 9.9 H (1.8-7.7) K/mm3 ABG pH (7.350-7.450) pH Units ABG pO2 (80.0-90.0) mm Hg ABG HCO3 (20.0-26.0) mmol/L ABG Base Excess (-2.0-3.0) mmol/L ABG Hemoglobin (12.0-16.0) gm/dl Chloride 94.1 L (98-107) mmol/L BUN 36 H (7-17) mg/dL Creatinine 2.6 H (0.7-1.2) mg/dL Glucose 217 H (65-100) mg/dL POC Glucose 190 H (70-105) Calcium 11.0 H (8.4-10.2) mg/dL 07/09/19 Range/Units 10:46 WBC (4.5-11.0) K/mm3 RDW (13.2-15.2) % Lymph % (Auto) (13.4-35.0) % Deuel % (Auto) (0.0-7.3) % Deuel # (0.0-0.8) K/mm3 Seg Neutrophils % (40.0-70.0) % Seg Neutrophils # (1.8-7.7) K/mm3 ABG pH (7.350-7.450) pH Units ABG pO2 113.2 H (80.0-90.0) mm Hg ABG HCO3 30.9 H (20.0-26.0) mmol/L ABG Base Excess 6.0 H (-2.0-3.0) mmol/L ABG Hemoglobin 10.5 L (12.0-16.0) gm/dl Chloride (98-107) mmol/L BUN (7-17) mg/dL Creatinine (0.7-1.2) mg/dL Glucose (65-100) mg/dL POC Glucose (70-105) Calcium (8.4-10.2) mg/dL - Imaging and cardiology Chest x-ray: report reviewed, image reviewed (patchy airspace opacities)
--- NOTE | 2019-07-09 12:34 | Progress Note ---
Assessment and Plan Acute hypoxic respiratory failure on mechanical ventilation Acute metabolic encephalopathy ESRD on HD HTN Sepsis Hx of seizures DM Type 2 on insulin Hypercalemia Plan: - no indication for HD today - PRN albumin for intradialytic hypotension - Assess dialysis needs daily - Epogen dosing for anemia management as needed - ID on board, on Abx, follow cultures - Currently Intubated on Vent - as per Pulmonology - Strict I&O - Renally dose meds - This pt undergoes outpatient HD at [facility] every MWF Keith Monroy MD [phone] Subjective Date of service: 07/09/19 Principal diagnosis: Acute hypoxemic resp failure; AMS; Severe Sepsis; ESRD; CHF; HTN; Seizure Interval history: intubated, no family at bedside Objective - Vital Signs Vital signs: Vital Signs - 12hr 07/09/19 07/09/19 07/09/19 01:00 02:00 03:00 Temperature Pulse Rate 77 78 81 Pulse Rate [ From Monitor] Respiratory 13 16 16 Rate Blood Pressure 147/69 146/70 150/73 O2 Sat by Pulse 97 96 95 Oximetry 07/09/19 07/09/19 07/09/19 03:58 04:00 04:03 Temperature 99.6 F Pulse Rate 79 78 Pulse Rate [ From Monitor] Respiratory 14 Rate Blood Pressure 149/73 149/73 O2 Sat by Pulse 95 100 Oximetry 07/09/19 07/09/19 07/09/19 04:30 05:00 06:00 Temperature Pulse Rate 79 77 Pulse Rate [ 80 From Monitor] Respiratory 14 12 14 Rate Blood Pressure 138/65 128/63 O2 Sat by Pulse 100 98 98 Oximetry 07/09/19 07/09/19 07/09/19 07:00 08:00 08:50 Temperature 97.6 F Pulse Rate 79 78 79 Pulse Rate [ 77 From Monitor] Respiratory 15 14 Rate Blood Pressure 143/69 130/66 130/66 O2 Sat by Pulse 99 100 100 Oximetry 07/09/19 07/09/19 07/09/19 08:54 09:00 10:00 Temperature Pulse Rate 79 79 76 Pulse Rate [ From Monitor] Respiratory 22 32 H Rate Blood Pressure 130/66 131/67 135/66 O2 Sat by Pulse 100 98 98 Oximetry 07/09/19 07/09/19 11:00 11:24 Temperature Pulse Rate 80 76 Pulse Rate [ From Monitor] Respiratory 36 H Rate Blood Pressure 128/67 128/67 O2 Sat by Pulse 97 100 Oximetry - General Appearance General appearance: intubated EENT: ATNC, PERRL, mucous membranes dry Neck: no JVD, no carotid bruit Respiratory: Present: Clear to Ascultation Cardiology: regular, S1S2 Gastrointestinal: normal, no tenderness, no distended Integumentary: no rash, warm and dry Neurologic: other (intubated) Musculoskeletal: other (trace pitting edema in BLE) Psychiatric: other (intubated) - Lab 07/09/19 04:29 07/09/19 04:29 Most recent lab results ABG pH 7.439 pH Units (7.350-7.450) 07/09/19 10:46 ABG pCO2 46.7 mm Hg 07/09/19 10:46 ABG pO2 113.2 mm Hg (80.0-90.0) H 07/09/19 10:46 ABG HCO3 30.9 mmol/L (20.0-26.0) H 07/09/19 10:46 ABG O2 Saturation 98.1 % (95.0-99.0) 07/09/19 10:46 Calcium 11.0 mg/dL (8.4-10.2) H 07/09/19 04:29 Phosphorus 2.60 mg/dL (2.5-4.5) D 07/09/19 04:29 Medications & Allergies - Medications Allergies/Adverse Reactions: Allergies No Known Allergies Allergy (Verified 07/03/19 10:58) Home Medications: Home Medications Medication Instructions Recorded Confirmed Last Taken Type Amlodipine Besylate [Norvasc] 10 mg PO DAILY 06/24/19 07/04/19 Unknown History AtorvaSTATin [Lipitor] 20 mg PO QHS 06/24/19 07/04/19 Unknown History Bumetanide 1 mg PO DAILY 06/24/19 07/04/19 Unknown History Cinacalcet HCl 30 mg PO DAILY 06/24/19 07/04/19 Unknown History Divalproex Sodium [Depakote 500 mg PO BID 06/24/19 07/04/19 Unknown History Sprinkle] Lispro Insulin [HumaLOG] 0 - 200 unit SQ ACHS 06/24/19 07/04/19 Unknown History Vit B Comp No.3/Folic/C/Biotin 1 each PO DAILY 06/24/19 07/04/19 Unknown History [Nephro-Umu Rx Tablet] carvediloL [Coreg] 25 mg PO BID 06/24/19 07/04/19 Unknown History hydrALAZINE [Apresoline TAB] 50 mg PO Q8HR 06/24/19 07/04/19 Unknown History ALBUTEROL NEB's [Proventil 0.083% 2.5 mg IH TIDRT #30 nebu 06/30/19 07/04/19 Unknown Rx NEBS] Lactulose [Cephulac] 20 gm PO Q8HR oral.liqd 06/30/19 07/04/19 Unknown Rx Sevelamer Carbonate [Renvela] 800 mg PO TIDWM tablet 06/30/19 07/04/19 Unknown Rx risperiDONE [RisperDAL] 0.5 mg PO BID tablet 06/30/19 07/04/19 Unknown Rx Active Medications: Generic Name Dose Route Start Last Admin Trade Name Freq PRN Reason Stop Dose Admin Acetaminophen 650 mg 07/08/19 10:00 Tylenol AL Q4H PRN Pain, Mild (1-3) Albumin Human 25 gm 07/06/19 13:42 07/08/19 11:59 Alburx 25% (Albumin) IV 25 gm FEDE PRN Administration Hypotension Lipase/Protease/Amylase 1 each 07/05/19 16:[address] 10,500 Unit FEEDTUBE PRN PRN For Clogged Feeding Tube Dextrose 0 ml 07/03/19 04:34 D50w (25gm) Syringe IV Q30MIN PRN Hypoglycemia Protocol Famotidine 20 mg 07/07/19 10:00 07/09/19 10:29 Pepcid PO 20 mg DAILY YANG Administration Heparin Sodium (Porcine) 5,000 unit 07/03/19 10:00 07/09/19 10:30 Heparin SUB-Q 5,000 unit Q12HR YANG Administration Hydrophilic Ointment 1 applic 07/03/19 00:53 Vaseline Lip Therapy TP Q2HR PRN Dry Lips Fentanyl Citrate 2,000 mcg in 100 mls @ 2.608 mls/hr 07/03/19 01:00 07/04/19 18:10 Fentanyl Drip Premix IV Infused TITR YANG Titration Protocol 1 MCG/KG/HR Sodium Chloride 100 mls @ 999 mls/hr 07/05/19 13:41 Nacl 0.9% IV FEDE PRN Hypotension Meropenem 500 mg in 50 mls @ 50 mls/hr 07/07/19 14:00 07/09/19 10:29 Merrem/Ns 500 Mg/50 Ml IV 50 mls/hr Q12HR YANG Administration Insulin Glargine 15 units 07/09/19 10:00 07/09/19 10:29 Lantus SUB-Q 15 units DAILY YANG Administration Insulin Human Lispro 0 unit 07/03/19 06:00 07/09/19 06:12 Humalog SUB-Q 3 unit Q6HR YANG Administration Protocol Multi-Ingred Cream/Lotion/Oil/Oint 1 applic 07/03/19 00:53 Artificial Tears Ophth Oint OU Q4HR PRN Dry Eye(s) Simple Syrup 15 ml 07/05/19 16:27 Simple Syrup FEEDTUBE PRN PRN Hypoglycemia Simple Syrup 30 ml 07/05/19 16:27 Simple Syrup FEEDTUBE PRN PRN Hypoglycemia Sodium Bicarbonate 325 mg 07/05/19 16:27 Sodium Bicarbonate FEEDTUBE PRN PRN For Clogged Feeding Tube Sodium Chloride 10 ml 07/03/19 10:00 07/09/19 10:30 Sodium Chloride Flush Syringe 10 Ml IV 10 ml BID YANG Administration Sodium Chloride 10 ml 07/03/19 04:34 07/05/19 10:42 Sodium Chloride Flush Syringe 10 Ml IV 10 ml PRN PRN Administration LINE FLUSH
--- NOTE | 2019-07-09 13:50 | Progress Note ---
Assessment and Plan Acute hypoxemic respiratory failure Toxic metabolic encephalopathy Severe Sepsis ESRD on HD Congestive heart Failure Accelerated Hypertension H/O Seizure - begin Reglan re: episode of high resuiduals and tube feeds being held - increase Lantus to 18 units SQ - begin prn albuterol nebs - keep set rate on MVS at 12 - sedation target for RASS 0 to -1 - VAP bundle addressed (aspiration precautions, HOB>40 degrees) - continue lung protective strategies - continue to wean FiO2 for O2 sats >90% - continue bronchodilators with pulmonary hygiene per RT - Daily SAT's and SBT assessment as tolerated - continue enteral nutrition at goal rate as tolerated - AED's per neurology recommendations - HD/UF per nephrology rec's for toxin and volume clearance - continue Empiric antibiotics therapies (de-escalate based on cultures and clinical condition) - ID evaluation ongoing - VTE prophylaxis with heparin SQ - continue stress ulcer prophylaxis with Famotidine - accuchecks with glycemic control for SSI (While critically ill target blood glucose of 140-180 mg/dL; avoid hypoglycemia) - mobility protocols for pressure ulcer prevention - Monitor hemodynamics closely - Fluid restrictive strategies as tolerated by hemodynamics and by her renal function (patient has a history of cardiomyopathy and has elevated BNP at this time) - continue to avoid nephrotoxins, dose all medications fro CrCL and GFR - Monitor electrolyte profile closely and replete as indicated - Chronic home medications, resume as clinically indicated - continue other care per attending / other consultants ... re-evaluate in am & prn CONDITION: CRITICAL PROGNOSIS: GUARDED CODE STATUS: FULL CODE The high probability of a clinically significant, sudden or life-threatening deterioration of the [respiratory, cardiovascular, neurology, renal] system(s) required my full and direct attention, intervention and personal management. The aggregate critical care time was [35] minutes without overlap. Time includes spent on; [x] Data Review and interpretation [x] Patient assessment and monitoring of vital signs [x] Documentation [x] Medication orders and management Subjective Date of service: 07/09/19 Principal diagnosis: Acute hypoxemic resp failure; AMS; Severe Sepsis; ESRD; CHF; HTN; Seizure Interval history: Patient is seen today for: Acute hypoxemic respiratory failure; Toxic metabolic encephalopathy; Severe Sepsis; ESRD on HD; CHF; Accelerated Hypertension; H/O Seizure Seen and examined at bedside; 24hour events reviewed; nursing and respiratory care staff consulted; no adverse overnight events reported to me; resting peacefully in bed; AMS is persistent; no emesis or overt aspiration; no seizures; high residuals overnight and tube feeds held; blood sugars still running on high side; Objective Vital Signs - 12hr 07/09/19 07/09/19 07/09/19 02:00 03:00 03:58 Temperature 99.6 F Pulse Rate 78 81 Pulse Rate [ From Monitor] Respiratory 16 16 Rate Blood Pressure 146/70 150/73 O2 Sat by Pulse 96 95 Oximetry 07/09/19 07/09/19 07/09/19 04:00 04:03 04:30 Temperature Pulse Rate 79 78 Pulse Rate [ 80 From Monitor] Respiratory 14 14 Rate Blood Pressure 149/73 149/73 O2 Sat by Pulse 95 100 100 Oximetry 07/09/19 07/09/19 07/09/19 05:00 06:00 07:00 Temperature Pulse Rate 79 77 79 Pulse Rate [ From Monitor] Respiratory 12 14 15 Rate Blood Pressure 138/65 128/63 143/69 O2 Sat by Pulse 98 98 99 Oximetry 07/09/19 07/09/19 07/09/19 08:00 08:50 08:54 Temperature 97.6 F Pulse Rate 78 79 79 Pulse Rate [ 77 From Monitor] Respiratory 14 Rate Blood Pressure 130/66 130/66 130/66 O2 Sat by Pulse 100 100 100 Oximetry 07/09/19 07/09/19 07/09/19 09:00 10:00 11:00 Temperature Pulse Rate 79 76 80 Pulse Rate [ From Monitor] Respiratory 22 32 H 36 H Rate Blood Pressure 131/67 135/66 128/67 O2 Sat by Pulse 98 98 97 Oximetry 07/09/19 11:24 Temperature Pulse Rate 76 Pulse Rate [ From Monitor] Respiratory Rate Blood Pressure 128/67 O2 Sat by Pulse 100 Oximetry Constitutional: appears uncomfortable, other (middle aged thin female, normocephalic riding set rate on MVS) Eyes: non-icteric ENT: oropharynx dry, other (ETT 23 cm JORY) Neck: supple, no lymphadenopathy, no JVD Effort: mildly labored Ascultation: Bilateral: diminished breath sounds, rhonchi Percussion: Bilateral: not dull Cardiovascular: regular rate and rhythm Gastrointestinal: normoactive bowel sounds, soft, non-tender, non-distended Integumentary: normal Extremities: no cyanosis, no edema, pink and warm, pulses normal Neurologic: unable to assess Psychiatric: other (unable to assess re: AMS) CBC and BMP: 07/10/19 04:55 07/10/19 04:55 ABG, PT/INR, D-dimer: ABG ABG pH 7.439 pH Units (7.350-7.450) 07/09/19 10:46 ABG pCO2 46.7 mm Hg 07/09/19 10:46 ABG pO2 113.2 mm Hg (80.0-90.0) H 07/09/19 10:46 ABG O2 Saturation 98.1 % (95.0-99.0) 07/09/19 10:46 Abnormal lab findings: Abnormal Labs 07/03/19 07/03/19 07/03/19 01:00 01:00 01:00 WBC 17.9 H RDW 17.8 H Lymph % (Auto) 11.7 L Gila % (Auto) Gila # 1.0 H Seg Neutrophils % 82.1 H Seg Neutrophils # 14.7 H ABG pH ABG pO2 ABG HCO3 ABG O2 Saturation ABG Base Excess ABG Hemoglobin Oxyhemoglobin Chloride 92.9 L Carbon Dioxide BUN 45 H Creatinine 5.3 H Glucose 229 H POC Glucose Hemoglobin A1c Calcium 10.5 H Phosphorus NT-Pro-B Natriuret Pep > 91029 H Albumin 2.5 L 07/03/19 07/03/19 07/03/19 01:00 01:35 04:30 WBC RDW Lymph % (Auto) Gila % (Auto) Gila # Seg Neutrophils % Seg Neutrophils # ABG pH 7.555 H 7.489 H ABG pO2 65.4 L 149.9 H ABG HCO3 28.9 H 27.9 H ABG O2 Saturation ABG Base Excess 6.7 H 4.5 H ABG Hemoglobin Oxyhemoglobin 94.0 L Chloride Carbon Dioxide BUN Creatinine Glucose POC Glucose Hemoglobin A1c 7.0 H Calcium Phosphorus NT-Pro-B Natriuret Pep Albumin 07/03/19 07/03/19 07/03/19 12:10 17:35 23:59 WBC RDW Lymph % (Auto) Gila % (Auto) Gila # Seg Neutrophils % Seg Neutrophils # ABG pH ABG pO2 ABG HCO3 ABG O2 Saturation ABG Base Excess ABG Hemoglobin Oxyhemoglobin Chloride Carbon Dioxide BUN Creatinine Glucose POC Glucose 246 H 163 H 112 H Hemoglobin A1c Calcium Phosphorus NT-Pro-B Natriuret Pep Albumin 07/04/19 07/04/19 07/04/19 04:24 04:56 04:56 WBC 17.3 H RDW 18.0 H Lymph % (Auto) 8.7 L Gila % (Auto) Gila # 0.9 H Seg Neutrophils % 85.1 H Seg Neutrophils # 14.8 H ABG pH 7.496 H ABG pO2 74.0 L ABG HCO3 28.1 H ABG O2 Saturation ABG Base Excess 4.7 H ABG Hemoglobin Oxyhemoglobin 93.9 L Chloride 95.5 L Carbon Dioxide BUN 26 H Creatinine 3.4 H Glucose 145 H POC Glucose Hemoglobin A1c Calcium Phosphorus NT-Pro-B Natriuret Pep Albumin 07/04/19 07/04/19 07/05/19 07:04 17:56 01:45 WBC RDW Lymph % (Auto) Gila % (Auto) Gila # Seg Neutrophils % Seg Neutrophils # ABG pH ABG pO2 ABG HCO3 ABG O2 Saturation ABG Base Excess ABG Hemoglobin Oxyhemoglobin Chloride Carbon Dioxide BUN Creatinine Glucose POC Glucose 162 H 273 H 148 H Hemoglobin A1c Calcium Phosphorus NT-Pro-B Natriuret Pep Albumin 07/05/19 07/05/19 07/05/19 03:07 03:07 05:57 WBC 18.7 H RDW 17.7 H Lymph % (Auto) 7.6 L Gila % (Auto) Gila # 1.2 H Seg Neutrophils % 84.2 H Seg Neutrophils # 15.7 H ABG pH ABG pO2 ABG HCO3 ABG O2 Saturation ABG Base Excess ABG Hemoglobin Oxyhemoglobin Chloride 94.7 L 95.6 L Carbon Dioxide 19 L BUN 23 H 26 H Creatinine 2.7 H 2.9 H Glucose 161 H 179 H POC Glucose Hemoglobin A1c Calcium 10.3 H 10.5 H Phosphorus 5.20 H D NT-Pro-B Natriuret Pep Albumin 07/05/19 07/05/19 07/05/19 06:50 07:52 09:06 WBC 16.8 H RDW 18.1 H Lymph % (Auto) 8.0 L Gila % (Auto) Gila # 1.1 H Seg Neutrophils % 84.4 H Seg Neutrophils # 14.2 H ABG pH ABG pO2 ABG HCO3 ABG O2 Saturation ABG Base Excess ABG Hemoglobin 11.7 L Oxyhemoglobin 94.6 L Chloride Carbon Dioxide BUN Creatinine Glucose POC Glucose 195 H Hemoglobin A1c Calcium Phosphorus NT-Pro-B Natriuret Pep Albumin 07/05/19 07/05/19 07/06/19 12:26 17:53 01:03 WBC RDW Lymph % (Auto) Gila % (Auto) Gila # Seg Neutrophils % Seg Neutrophils # ABG pH ABG pO2 ABG HCO3 ABG O2 Saturation ABG Base Excess ABG Hemoglobin Oxyhemoglobin Chloride Carbon Dioxide BUN Creatinine Glucose POC Glucose 222 H 214 H 217 H Hemoglobin A1c Calcium Phosphorus NT-Pro-B Natriuret Pep Albumin 07/06/19 07/06/19 07/06/19 03:45 04:37 04:37 WBC 15.7 H RDW 17.9 H Lymph % (Auto) 9.3 L Gila % (Auto) 8.2 H Gila # 1.3 H Seg Neutrophils % 81.5 H Seg Neutrophils # 12.8 H ABG pH ABG pO2 67.1 L ABG HCO3 ABG O2 Saturation 93.3 L ABG Base Excess ABG Hemoglobin Oxyhemoglobin 91.2 L Chloride 97.5 L Carbon Dioxide 20 L BUN 50 H Creatinine 4.5 H D Glucose 192 H POC Glucose Hemoglobin A1c Calcium Phosphorus 5.80 H NT-Pro-B Natriuret Pep Albumin 07/06/19 07/06/19 07/06/19 06:10 13:47 18:40 WBC RDW Lymph % (Auto) Gila % (Auto) Gila # Seg Neutrophils % Seg Neutrophils # ABG pH ABG pO2 ABG HCO3 ABG O2 Saturation ABG Base Excess ABG Hemoglobin Oxyhemoglobin Chloride Carbon Dioxide BUN Creatinine Glucose POC Glucose 214 H 233 H 225 H Hemoglobin A1c Calcium Phosphorus NT-Pro-B Natriuret Pep Albumin 07/07/19 07/07/19 07/07/19 00:11 04:30 05:33 WBC RDW Lymph % (Auto) Gila % (Auto) Gila # Seg Neutrophils % Seg Neutrophils # ABG pH ABG pO2 113.7 H ABG HCO3 28.6 H ABG O2 Saturation ABG Base Excess 4.0 H ABG Hemoglobin 11.3 L Oxyhemoglobin Chloride Carbon Dioxide BUN Creatinine Glucose POC Glucose 288 H 204 H Hemoglobin A1c Calcium Phosphorus NT-Pro-B Natriuret Pep Albumin 07/07/19 07/07/19 07/07/19 05:38 05:38 11:39 WBC 15.0 H RDW 18.3 H Lymph % (Auto) 10.9 L Gila % (Auto) 8.9 H Gila # 1.3 H Seg Neutrophils % 79.6 H Seg Neutrophils # 11.9 H ABG pH ABG pO2 ABG HCO3 ABG O2 Saturation ABG Base Excess ABG Hemoglobin Oxyhemoglobin Chloride 94.8 L Carbon Dioxide BUN 32 H Creatinine 2.8 H Glucose 236 H POC Glucose 309 H Hemoglobin A1c Calcium 10.6 H Phosphorus NT-Pro-B Natriuret Pep Albumin 07/07/19 07/07/19 07/08/19 18:09 23:30 03:49 WBC RDW Lymph % (Auto) Gila % (Auto) Gila # Seg Neutrophils % Seg Neutrophils # ABG pH ABG pO2 116.2 H ABG HCO3 27.7 H ABG O2 Saturation ABG Base Excess ABG Hemoglobin 11.2 L Oxyhemoglobin Chloride Carbon Dioxide BUN Creatinine Glucose POC Glucose 280 H 398 H Hemoglobin A1c Calcium Phosphorus NT-Pro-B Natriuret Pep Albumin 07/08/19 07/08/19 07/08/19 04:38 04:38 05:37 WBC 13.5 H RDW 18.3 H Lymph % (Auto) Gila % (Auto) 9.5 H Gila # 1.3 H Seg Neutrophils % 75.6 H Seg Neutrophils # 10.2 H ABG pH ABG pO2 ABG HCO3 ABG O2 Saturation ABG Base Excess ABG Hemoglobin Oxyhemoglobin Chloride 94.9 L Carbon Dioxide BUN 64 H Creatinine 4.2 H Glucose 288 H POC Glucose 270 H Hemoglobin A1c Calcium 10.9 H Phosphorus NT-Pro-B Natriuret Pep Albumin 07/08/19 07/08/19 07/08/19 11:47 17:36 23:23 WBC RDW Lymph % (Auto) Gila % (Auto) Gila # Seg Neutrophils % Seg Neutrophils # ABG pH ABG pO2 ABG HCO3 ABG O2 Saturation ABG Base Excess ABG Hemoglobin Oxyhemoglobin Chloride Carbon Dioxide BUN Creatinine Glucose POC Glucose 211 H 259 H 276 H Hemoglobin A1c Calcium Phosphorus NT-Pro-B Natriuret Pep Albumin 07/09/19 07/09/19 07/09/19 04:08 04:29 04:29 WBC 12.8 H RDW 17.7 H Lymph % (Auto) 12.5 L Gila % (Auto) 8.4 H Gila # 1.1 H Seg Neutrophils % 77.0 H Seg Neutrophils # 9.9 H ABG pH 7.471 H ABG pO2 141.8 H ABG HCO3 32.3 H ABG O2 Saturation ABG Base Excess 7.8 H ABG Hemoglobin 11.3 L Oxyhemoglobin Chloride 94.1 L Carbon Dioxide BUN 36 H Creatinine 2.6 H Glucose 217 H POC Glucose Hemoglobin A1c Calcium 11.0 H Phosphorus NT-Pro-B Natriuret Pep Albumin 07/09/19 07/09/19 07/09/19 05:25 10:46 13:07 WBC RDW Lymph % (Auto) Gila % (Auto) Gila # Seg Neutrophils % Seg Neutrophils # ABG pH ABG pO2 113.2 H ABG HCO3 30.9 H ABG O2 Saturation ABG Base Excess 6.0 H ABG Hemoglobin 10.5 L Oxyhemoglobin Chloride Carbon Dioxide BUN Creatinine Glucose POC Glucose 190 H 315 H Hemoglobin A1c Calcium Phosphorus NT-Pro-B Natriuret Pep Albumin Allied health notes reviewed: nursing
[2019-07-10] MEDS: INSULIN LISPRO 100 UNIT/ML SUB-Q SCH ×4 (00:06→19:52)
--- NOTE | 2019-07-10 02:54 | XRay Report ---
CHEST 1 VIEW INDICATION / CLINICAL INFORMATION: follow up respiratory failure. COMPARISON: 07/09/2019, 0229 hours FINDINGS: SUPPORT DEVICES: Unchanged HEART / MEDIASTINUM: Unchanged LUNGS / PLEURA: There is increased airspace opacity in the left lung base. There is a small amount of left pleural fluid. Patchy airspace opacity on the right is unchanged. . No pneumothorax. ADDITIONAL FINDINGS: No significant additional findings. IMPRESSION: 1. There is mild increased airspace opacity and pleural fluid in the left base. Signer Name: Salazar Torres MD Signed: 07/10/2019 2:50 AM Workstation Name: [id number]
[2019-07-10 04:34] LABS: ABG Base Excess 5.1 mmol/L (-2.0-3.0); ABG HCO3 30.4 mmol/L (20.0-26.0); ABG Methemoglobin 0.3 % (0.0-1.5); ABG PCO2 47.5 mm Hg; ABG PH 7.424 pH Units (7.350-7.450); ABG PO2 77.3 mm Hg (80.0-90.0)
[2019-07-10 05:51] LABS: Calcium 11.1 mg/dL (8.4-10.2)
[2019-07-10 05:55] LABS: Hematocrit 33.8 % (30.3-42.9); Hemoglobin 10.9 gm/dl (10.1-14.3); Mean Corpuscular HGB Conc 32 % (30-34); Mean Corpuscular Volume 89 fl (79-97); Red Cell Distribution Width 18.1 % (13.2-15.2)
[2019-07-10 05:59] LABS: Platelet Count 353 K/mm3 (140-440)
[2019-07-10 07:08] LABS: Basophils % (Manual) 0 % (0.0-1.8); Eosinophils % (Manual) 0 % (0.0-4.3); Total Cells Counted 100
[2019-07-10 07:09] LABS: Platelet Estimate Consistent w Auto; Schistocytes Rare
--- NOTE | 2019-07-10 09:21 | Progress Note ---
Assessment and Plan Assessment and plan: Sepsis -CXR unremarkable -Leukocytosis present -Continue antibiotic, Merrem -Blood cultures negative x 72-hours Acute hypoxic respiratory failure -Continue mechanical ventilation per pulmonary.. Toxic metabolic encephalopathy -Neuro checks -Continue to treat underlying causes. ESRD on HD -M/W/F -Avoid nephrotoxic agents -Renal dose all meds -Nephrology following Congestive heart Failure -BNP >42998 on admission -Monitor input and output. -Cardiology following and reported no evidence of volume overload Hypertension -Continue to monitor BP Insulin-dependent diabetes -POC BG monitoring -SSI coverage prn Hx Seizure -Continue anticonvulsant meds -Seizure precautions. DVT PPX -On Heparin The high probability of a clinically significant, sudden or life threatening deterioration of the [respiratory] system(s) required my full and direct attention, intervention and personal management. The aggregate critical care time was [35] minutes. This time is in addition to time spent performing reported procedures but includes the following: [x] Data Review and interpretation [x] Patient assessment and monitoring of vital signs [x] Documentation [x] Medication orders and management History Interval history: Patient intubated, Fever on 07/08 Hospitalist Physical - Physical exam Narrative exam: GEN: Not in acute distress, intubated, on vent HEENT: Normocephalic, atraumatic, Neck: supple, No JVD Lungs: Bilateral rhonchi, heart;S1 and S2 reg, no murmurs Abd:soft, non tender, non distended, normal bowel sounds Ext: No edema, no clubbing, no cyanosis Neuro: Intubated, sedated - Constitutional Vitals: Temp Pulse Resp BP Pulse Ox 98.3 F 83 17 121/64 100 07/10/19 09:16 07/10/19 09:00 07/10/19 09:00 07/10/19 09:00 07/10/19 09:00 General appearance: Present: other (intubated on the vent) MATT score - Matt Score Age > 65: (0) No Aspirin use within the Past 7 Days: (0) No 3 or more CAD Risk Factors: (1) Yes 2 or more Angina events in past 24 hrs: (0) No Known CAD with more than 50% Stenosis: (0) No Elevated Cardiac Markers: (1) Yes ST Deviation Greater than 0.5mm: (0) No MATT Score: 2 Results - Labs CBC & Chem 7: 07/10/19 04:55 07/10/19 04:55 Labs: Laboratory Last Values WBC 23.9 K/mm3 (4.5-11.0) H 07/10/19 04:55 RBC 3.80 M/mm3 (3.65-5.03) 07/10/19 04:55 Hgb 10.9 gm/dl (10.1-14.3) 07/10/19 04:55 Hct 33.8 % (30.3-42.9) 07/10/19 04:55 MCV 89 fl (79-97) 07/10/19 04:55 MCH 29 pg (28-32) 07/10/19 04:55 MCHC 32 % (30-34) 07/10/19 04:55 RDW 18.1 % (13.2-15.2) H 07/10/19 04:55 Plt Count 353 K/mm3 (140-440) 07/10/19 04:55 Lymph % (Auto) Chart Calculator 07/10/19 04:55 Clare % (Auto) Chart Calculator 07/10/19 04:55 Eos % (Auto) Chart Calculator 07/10/19 04:55 Baso % (Auto) Chart Calculator 07/10/19 04:55 Lymph # Chart Calculator 07/10/19 04:55 Clare # Chart Calculator 07/10/19 04:55 Eos # Chart Calculator 07/10/19 04:55 Baso # Chart Calculator 07/10/19 04:55 Add Manual Diff Complete 07/10/19 04:55 Total Counted 100 07/10/19 04:55 Seg Neutrophils % Chart Calculator 07/10/19 04:55 Seg Neuts % (Manual) 81.0 % (40.0-70.0) H 07/10/19 04:55 Band Neutrophils % 0 % 07/10/19 04:55 Lymphocytes % (Manual) 14.0 % (13.4-35.0) 07/10/19 04:55 Reactive Lymphs % (Man) 0 % 07/10/19 04:55 Monocytes % (Manual) 4.0 % (0.0-7.3) 07/10/19 04:55 Eosinophils % (Manual) 0 % (0.0-4.3) 07/10/19 04:55 Basophils % (Manual) 0 % (0.0-1.8) 07/10/19 04:55 Metamyelocytes % 1.0 % 07/10/19 04:55 Myelocytes % 0 % 07/10/19 04:55 Promyelocytes % 0 % 07/10/19 04:55 Blast Cells % 0 % 07/10/19 04:55 Nucleated RBC % Not Reportable 07/10/19 04:55 Seg Neutrophils # Chart Calculator 07/10/19 04:55 Seg Neutrophils # Man 19.4 K/mm3 (1.8-7.7) H 07/10/19 04:55 Band Neutrophils # 0.0 K/mm3 07/10/19 04:55 Lymphocytes # (Manual) 3.3 K/mm3 (1.2-5.4) 07/10/19 04:55 Abs React Lymphs (Man) 0.0 K/mm3 07/10/19 04:55 Monocytes # (Manual) 1.0 K/mm3 (0.0-0.8) H 07/10/19 04:55 Eosinophils # (Manual) 0.0 K/mm3 (0.0-0.4) 07/10/19 04:55 Basophils # (Manual) 0.0 K/mm3 (0.0-0.1) 07/10/19 04:55 Metamyelocytes # 0.2 K/mm3 07/10/19 04:55 Myelocytes # 0.0 K/mm3 07/10/19 04:55 Promyelocytes # 0.0 K/mm3 07/10/19 04:55 Blast Cells # 0.0 K/mm3 07/10/19 04:55 WBC Morphology Not Reportable 07/10/19 04:55 Hypersegmented Neuts Not Reportable 07/10/19 04:55 Hyposegmented Neuts Not Reportable 07/10/19 04:55 Hypogranular Neuts Not Reportable 07/10/19 04:55 Smudge Cells Not Reportable 07/10/19 04:55 Toxic Granulation Not Reportable 07/10/19 04:55 Toxic Vacuolation Not Reportable 07/10/19 04:55 Dohle Bodies Not Reportable 07/10/19 04:55 Pelger-Huet Anomaly Not Reportable 07/10/19 04:55 Andrei Rods Not Reportable 07/10/19 04:55 Platelet Estimate Consistent w auto 07/10/19 04:55 Clumped Platelets Not Reportable 07/10/19 04:55 Plt Clumps, EDTA Not Reportable 07/10/19 04:55 Large Platelets Not Reportable 07/10/19 04:55 Giant Platelets Not Reportable 07/10/19 04:55 Platelet Satelliting Not Reportable 07/10/19 04:55 Plt Morphology Comment Not Reportable 07/10/19 04:55 RBC Morphology Not Reportable 07/10/19 04:55 Dimorphic RBCs Not Reportable 07/10/19 04:55 Polychromasia Not Reportable 07/10/19 04:55 Hypochromasia Not Reportable 07/10/19 04:55 Poikilocytosis Not Reportable 07/10/19 04:55 Anisocytosis Not Reportable 07/10/19 04:55 Microcytosis Not Reportable 07/10/19 04:55 Macrocytosis Not Reportable 07/10/19 04:55 Spherocytes Not Reportable 07/10/19 04:55 Pappenheimer Bodies Not Reportable 07/10/19 04:55 Sickle Cells Not Reportable 07/10/19 04:55 Target Cells Not Reportable 07/10/19 04:55 Tear Drop Cells Not Reportable 07/10/19 04:55 Ovalocytes Not Reportable 07/10/19 04:55 Helmet Cells Not Reportable 07/10/19 04:55 [place] Bodies Not Reportable 07/10/19 04:55 [place] Rings Not Reportable 07/10/19 04:55 [place] Cells Not Reportable 07/10/19 04:55 Bite Cells Not Reportable 07/10/19 04:55 Crenated Cell Not Reportable 07/10/19 04:55 Elliptocytes Not Reportable 07/10/19 04:55 Acanthocytes (Spur) Not Reportable 07/10/19 04:55 Rouleaux Not Reportable 07/10/19 04:55 Hemoglobin C Crystals Not Reportable 07/10/19 04:55 Schistocytes Rare 07/10/19 04:55 Malaria parasites Not Reportable 07/10/19 04:55 Tristen Bodies Not Reportable 07/10/19 04:55 Hem Pathologist Commnt No 07/10/19 04:55 ABG pH 7.424 pH Units (7.350-7.450) 07/10/19 04:00 ABG pCO2 47.5 mm Hg 07/10/19 04:00 ABG pO2 77.3 mm Hg (80.0-90.0) L 07/10/19 04:00 ABG HCO3 30.4 mmol/L (20.0-26.0) H 07/10/19 04:00 ABG O2 Saturation 97.0 % (95.0-99.0) 07/10/19 04:00 ABG O2 Content 18.9 (0.0-44) 07/10/19 04:00 ABG Base Excess 5.1 mmol/L (-2.0-3.0) H 07/10/19 04:00 ABG Hemoglobin 14.1 gm/dl (12.0-16.0) 07/10/19 04:00 ABG Carboxyhemoglobin 1.7 % (0.0-5.0) 07/10/19 04:00 ABG Methemoglobin 0.3 % (0.0-1.5) 07/10/19 04:00 Oxyhemoglobin 95.1 % (95.0-99.0) 07/10/19 04:00 FiO2 30 % 07/10/19 04:00 Sodium 133 mmol/L (137-145) L 07/10/19 04:55 Potassium 4.6 mmol/L (3.6-5.0) 07/10/19 04:55 Chloride 88.0 mmol/L (98-107) L 07/10/19 04:55 Carbon Dioxide 25 mmol/L (22-30) 07/10/19 04:55 Anion Gap 25 mmol/L 07/10/19 04:55 BUN 64 mg/dL (7-17) H 07/10/19 04:55 Creatinine 3.7 mg/dL (0.7-1.2) H 07/10/19 04:55 Estimated GFR 13 ml/min 07/10/19 04:55 BUN/Creatinine Ratio 17 % 07/10/19 04:55 Glucose 250 mg/dL (65-100) H 07/10/19 04:55 POC Glucose 288 (70-105) H 07/10/19 05:39 Hemoglobin A1c 7.0 % (4-6) H 07/03/19 01:00 Lactic Acid 1.20 mmol/L (0.7-2.0) 07/03/19 04:13 Calcium 11.1 mg/dL (8.4-10.2) H 07/10/19 04:55 Phosphorus 2.60 mg/dL (2.5-4.5) D 07/09/19 04:29 Total Bilirubin 0.30 mg/dL (0.1-1.2) 07/03/19 01:00 AST 22 units/L (5-40) 07/03/19 01:00 ALT 9 units/L (7-56) 07/03/19 01:00 Alkaline Phosphatase 101 units/L (35-129) 07/03/19 01:00 Ammonia 35.0 umol/L (25-60) 07/03/19 01:58 NT-Pro-B Natriuret Pep > 00231 pg/mL (0-900) H 07/03/19 01:00 Total Protein 7.0 g/dL (6.3-8.2) 07/03/19 01:00 Albumin 2.5 g/dL (3.9-5) L 07/03/19 01:00 Albumin/Globulin Ratio 0.6 % 07/03/19 01:00 TSH 2.600 mlU/mL (0.270-4.200) 07/03/19 01:00 Urine Color Yellow (Yellow) 07/03/19 Unknown Urine Turbidity Clear (Clear) 07/03/19 Unknown Urine pH 6.0 (5.0-7.0) 07/03/19 Unknown Ur Specific [place] 1.012 (1.003-1.030) 07/03/19 Unknown Urine Protein >500 mg/dL (Negative) 07/03/19 Unknown Urine Glucose (UA) >=500 mg/dL (Negative) 07/03/19 Unknown Urine Ketones Neg mg/dL (Negative) 07/03/19 Unknown Urine Blood Neg (Negative) 07/03/19 Unknown Urine Nitrite Neg (Negative) 07/03/19 Unknown Ur Reducing Substances Not Reportable 07/03/19 Unknown Urine Bilirubin Neg (Negative) 07/03/19 Unknown Urine Ictotest Not Reportable 07/03/19 Unknown Urine Urobilinogen < 2.0 mg/dL (<2.0) 07/03/19 Unknown Ur Leukocyte Esterase Neg (Negative) 07/03/19 Unknown Urine WBC (Auto) 1.0 /HPF (0.0-6.0) 07/03/19 Unknown Urine RBC (Auto) 2.0 /HPF (0.0-6.0) 07/03/19 Unknown U Epithel Cells (Auto) < 1.0 /HPF (0-13.0) 07/03/19 Unknown Urine Mucus Few /HPF 07/03/19 Unknown Random Vancomycin 18.7 ug/mL (0-40.0) 07/08/19 04:38 Influenza A (Rapid) Negative (Negative) 07/05/19 14:30 Influenza B (Rapid) Negative (Negative) 07/05/19 14:30 Active Medications - Current Medications Current Medications: Generic Name Dose Route Start Last Admin Trade Name Freq PRN Reason Stop Dose Admin Acetaminophen 650 mg 07/08/19 10:00 Tylenol [place] Q4H PRN Pain, Mild (1-3) Albumin Human 25 gm 07/06/19 13:42 07/08/19 11:59 Alburx 25% (Albumin) IV 25 gm FEDE PRN Administration Hypotension Lipase/Protease/Amylase 1 each 07/05/19 16:[address] 10,500 Unit FEEDTUBE PRN PRN For Clogged Feeding Tube Dextrose 0 ml 07/03/19 04:34 D50w (25gm) Syringe IV Q30MIN PRN Hypoglycemia Protocol Famotidine 20 mg 07/07/19 10:00 07/09/19 10:29 Pepcid PO 20 mg DAILY YANG Administration Heparin Sodium (Porcine) 5,000 unit 07/03/19 10:00 07/09/19 22:17 Heparin SUB-Q 5,000 unit Q12HR YANG Administration Hydrophilic Ointment 1 applic 07/03/19 00:53 Vaseline Lip Therapy TP Q2HR PRN Dry Lips Fentanyl Citrate 2,000 mcg in 100 mls @ 2.608 mls/hr 07/03/19 01:00 07/04/19 18:10 Fentanyl Drip Premix IV Infused TITR YANG Titration Protocol 1 MCG/KG/HR Sodium Chloride 100 mls @ 999 mls/hr 07/05/19 13:41 Nacl 0.9% IV FEDE PRN Hypotension Meropenem 500 mg in 50 mls @ 50 mls/hr 07/07/19 14:00 07/09/19 22:16 Merrem/Ns 500 Mg/50 Ml IV 50 mls/hr Q12HR YANG Administration Insulin Glargine 15 units 07/09/19 10:00 07/09/19 10:29 Lantus SUB-Q 15 units DAILY YANG Administration Insulin Human Lispro 0 unit 07/03/19 06:00 07/10/19 06:23 Humalog SUB-Q 6 unit Q6HR YANG Administration Protocol Multi-Ingred Cream/Lotion/Oil/Oint 1 applic 07/03/19 00:53 Artificial Tears Ophth Oint OU Q4HR PRN Dry Eye(s) Simple Syrup 15 ml 07/05/19 16:27 Simple Syrup FEEDTUBE PRN PRN Hypoglycemia Simple Syrup 30 ml 07/05/19 16:27 Simple Syrup FEEDTUBE PRN PRN Hypoglycemia Sodium Bicarbonate 325 mg 07/05/19 16:27 Sodium Bicarbonate FEEDTUBE PRN PRN For Clogged Feeding Tube Sodium Chloride 10 ml 07/03/19 10:00 07/09/19 22:17 Sodium Chloride Flush Syringe 10 Ml IV 10 ml BID YANG Administration Sodium Chloride 10 ml 07/03/19 04:34 07/05/19 10:42 Sodium Chloride Flush Syringe 10 Ml IV 10 ml PRN PRN Administration LINE FLUSH Nutrition/Malnutrition Assess - Dietary Evaluation Nutrition/Malnutrition Findings: Nutrition Notes Start: 07/06/19 08:50 Freq: Status: Active Protocol: Document 07/09/19 10:48 CW (Rec: 07/09/19 11:02 CW [id number]) Co-Sign 07/09/19 10:48 LP Nutrition Notes Initial or Follow up Reassessment Current Diagnosis CKD (stage V CKD),Decubitus( Pressure Ulcer),Diabetes,Heart Failure,Respiratory Failure Other Pertinent Diagnosis on HD, Sacral PU, seizures, bipolar disorder, metabolic encephalopathy Current Diet Nepro 1.8 at 35 ml/hr Labs/Tests BG 190 07/03: HA1C 7 Pertinent Medications Humalog Lantus Height 5 ft 2 in Weight 48.2 kg [place] Body Weight (kg) 50.00 BMI 19.4 Weight change and time frame 2% wt loss noted likely D/T to fluid loss Weight Status Appropriate Subjective/Other Information F/U for TF tolerance and stable wt. Nepro 1.8 currently running at goal rate. TF stopped for 2 hours D/T residuals of 300 mL. TF has since been restarted and is running at goal. Wt is stablizing at approxiamtely 48 kg. Percent of energy/protein needs met: 100%/100% Burn Absent Trauma Absent GI Symptoms None Current % PO Negligible Minimum of two criteria No physical signs of malnutrition #2 Nutrition Diagnosis Increased nutrient needs ( specify in comment below) Comments: Protein Diagnosis Progress(for reassessment Continues documentation) #1 Nutrition Diagnosis Inadequate oral intake Diagnosis Progress(for reassessment Continues documentation) Is patient on ventilator? Yes Is Patient Ambulatory and/or Out of Bed No REE-([facility]-confined to bed) 1223.292 Kcal/Kg value to use for calculation 31 Approximate Energy Requirements Using 1494 kcal/Kg Calculation Used for Recommendations [facility] Additional Notes Protein: 58 -96g (1.2-2g/kg) Fluid: 1-1.5 L/ day Nutrition Intervention Change Diet Order: TF Nutrition Support: Nepro 1.8 at 35ml/hr Flush 150 ml q4h Kcal 1,512 Protein (gm) 68 Fluid (mL) 611 Goal #1 TF tolerance Goal #2 Wound healing Anticipated Discharge Needs: unable to determine at this time Follow-Up By: 07/14/19 Additional Comments F/U for TF tolerance and stable wt.
--- NOTE | 2019-07-10 12:37 | Progress Note ---
Assessment and Plan Acute hypoxic respiratory failure on mechanical ventilation Acute metabolic encephalopathy ESRD on HD HTN Sepsis Hx of seizures DM Type 2 on insulin Hypercalemia Plan: - HD today for clearance and volume removal - PRN albumin for intradialytic hypotension - Assess dialysis needs daily - Epogen dosing for anemia management as needed - ID on board, on Abx, follow cultures - Currently Intubated on Vent - as per Pulmonology - Strict I&O - Renally dose meds - This pt undergoes outpatient HD at [facility] every MWF Keith Monroy MD [phone] Subjective Date of service: 07/10/19 Principal diagnosis: Acute hypoxemic resp failure; AMS; Severe Sepsis; ESRD; CHF; HTN; Seizure Interval history: intubated, on dialysis, no family at bedside Objective - Vital Signs Vital signs: Vital Signs - 12hr 07/10/19 07/10/19 07/10/19 01:00 02:00 03:00 Temperature Pulse Rate 73 75 76 Respiratory 15 13 16 Rate Blood Pressure 146/70 145/74 143/74 O2 Sat by Pulse 97 98 97 Oximetry O2 Sat by Pulse Oximetry [ Anterior Bilateral Throughout] 07/10/19 07/10/19 07/10/19 03:52 04:00 04:01 Temperature 97.8 F Pulse Rate 76 78 79 Respiratory 12 12 Rate Blood Pressure 143/74 173/81 O2 Sat by Pulse 98 100 95 Oximetry O2 Sat by Pulse Oximetry [ Anterior Bilateral Throughout] 07/10/19 07/10/19 07/10/19 05:00 06:00 07:00 Temperature Pulse Rate 80 77 75 Respiratory 17 14 13 Rate Blood Pressure 156/72 126/68 136/70 O2 Sat by Pulse 98 99 98 Oximetry O2 Sat by Pulse Oximetry [ Anterior Bilateral Throughout] 07/10/19 07/10/19 07/10/19 07:56 08:00 08:30 Temperature 98.3 F Pulse Rate 78 78 79 Respiratory 15 17 Rate Blood Pressure 136/70 138/72 138/72 O2 Sat by Pulse 100 97 Oximetry O2 Sat by Pulse 99 Oximetry [ Anterior Bilateral Throughout] 07/10/19 07/10/19 07/10/19 08:40 08:45 09:00 Temperature Pulse Rate 75 77 80 Respiratory 17 Rate Blood Pressure 132/69 129/70 121/64 O2 Sat by Pulse 100 Oximetry O2 Sat by Pulse Oximetry [ Anterior Bilateral Throughout] 07/10/19 07/10/19 07/10/19 09:15 09:16 09:30 Temperature 98.3 F Pulse Rate 83 85 Respiratory 18 19 Rate Blood Pressure 115/64 107/62 O2 Sat by Pulse 98 99 Oximetry O2 Sat by Pulse Oximetry [ Anterior Bilateral Throughout] 07/10/19 07/10/19 07/10/19 09:45 10:00 10:15 Temperature Pulse Rate 83 81 81 Respiratory 18 17 20 Rate Blood Pressure 99/60 99/62 103/60 O2 Sat by Pulse 99 99 100 Oximetry O2 Sat by Pulse Oximetry [ Anterior Bilateral Throughout] 07/10/19 07/10/19 07/10/19 10:30 10:45 11:02 Temperature Pulse Rate 80 81 84 Respiratory 16 17 Rate Blood Pressure 102/58 106/59 98/56 O2 Sat by Pulse 100 100 Oximetry O2 Sat by Pulse Oximetry [ Anterior Bilateral Throughout] 07/10/19 07/10/19 07/10/19 11:15 11:20 11:30 Temperature Pulse Rate 85 82 81 Respiratory Rate Blood Pressure 83/50 82/51 86/52 O2 Sat by Pulse Oximetry O2 Sat by Pulse Oximetry [ Anterior Bilateral Throughout] 07/10/19 07/10/19 07/10/19 11:35 11:53 12:00 Temperature Pulse Rate 79 72 73 Respiratory Rate Blood Pressure 94/53 96/52 133/67 O2 Sat by Pulse 100 Oximetry O2 Sat by Pulse Oximetry [ Anterior Bilateral Throughout] - General Appearance General appearance: cachectic, intubated EENT: ATNC, PERRL, mucous membranes dry Neck: no JVD, no carotid bruit Respiratory: Present: Decreased Breath Sounds Cardiology: regular, S1S2 Gastrointestinal: normoactive bowel sounds, no tenderness, no distended, no masses Integumentary: no rash, warm and dry Neurologic: other (intubated) Musculoskeletal: other (no edema in BLE) Psychiatric: other (intubated) - Lab 07/10/19 04:55 07/10/19 04:55 Most recent lab results ABG pH 7.424 pH Units (7.350-7.450) 07/10/19 04:00 ABG pCO2 47.5 mm Hg 07/10/19 04:00 ABG pO2 77.3 mm Hg (80.0-90.0) L 07/10/19 04:00 ABG HCO3 30.4 mmol/L (20.0-26.0) H 07/10/19 04:00 ABG O2 Saturation 97.0 % (95.0-99.0) 07/10/19 04:00 Calcium 11.1 mg/dL (8.4-10.2) H 07/10/19 04:55 Phosphorus 2.60 mg/dL (2.5-4.5) D 07/09/19 04:29 Medications & Allergies - Medications Allergies/Adverse Reactions: Allergies No Known Allergies Allergy (Verified 07/03/19 10:58) Home Medications: Home Medications Medication Instructions Recorded Confirmed Last Taken Type Amlodipine Besylate [Norvasc] 10 mg PO DAILY 06/24/19 07/04/19 Unknown History AtorvaSTATin [Lipitor] 20 mg PO QHS 06/24/19 07/04/19 Unknown History Bumetanide 1 mg PO DAILY 06/24/19 07/04/19 Unknown History Cinacalcet HCl 30 mg PO DAILY 06/24/19 07/04/19 Unknown History Divalproex Sodium [Depakote 500 mg PO BID 06/24/19 07/04/19 Unknown History Sprinkle] Lispro Insulin [HumaLOG] 0 - 200 unit SQ ACHS 06/24/19 07/04/19 Unknown History Vit B Comp No.3/Folic/C/Biotin 1 each PO DAILY 06/24/19 07/04/19 Unknown History [Nephro-Umu Rx Tablet] carvediloL [Coreg] 25 mg PO BID 06/24/19 07/04/19 Unknown History hydrALAZINE [Apresoline TAB] 50 mg PO Q8HR 06/24/19 07/04/19 Unknown History ALBUTEROL NEB's [Proventil 0.083% 2.5 mg IH TIDRT #30 nebu 06/30/19 07/04/19 Unknown Rx NEBS] Lactulose [Cephulac] 20 gm PO Q8HR oral.liqd 06/30/19 07/04/19 Unknown Rx Sevelamer Carbonate [Renvela] 800 mg PO TIDWM tablet 06/30/19 07/04/19 Unknown Rx risperiDONE [RisperDAL] 0.5 mg PO BID tablet 06/30/19 07/04/19 Unknown Rx Active Medications: Generic Name Dose Route Start Last Admin Trade Name Freq PRN Reason Stop Dose Admin Acetaminophen 650 mg 07/08/19 10:00 Tylenol [place] Q4H PRN Pain, Mild (1-3) Albumin Human 25 gm 07/06/19 13:42 07/08/19 11:59 Alburx 25% (Albumin) IV 25 gm FEDE PRN Administration Hypotension Lipase/Protease/Amylase 1 each 07/05/19 16:[address] 10,500 Unit FEEDTUBE PRN PRN For Clogged Feeding Tube Dextrose 0 ml 07/03/19 04:34 D50w (25gm) Syringe IV Q30MIN PRN Hypoglycemia Protocol Famotidine 20 mg 07/07/19 10:00 07/09/19 10:29 Pepcid PO 20 mg DAILY YANG Administration Heparin Sodium (Porcine) 5,000 unit 07/03/19 10:00 07/09/19 22:17 Heparin SUB-Q 5,000 unit Q12HR YANG Administration Hydrophilic Ointment 1 applic 07/03/19 00:53 Vaseline Lip Therapy TP Q2HR PRN Dry Lips Fentanyl Citrate 2,000 mcg in 100 mls @ 2.608 mls/hr 07/03/19 01:00 07/04/19 18:10 Fentanyl Drip Premix IV Infused TITR YANG Titration Protocol 1 MCG/KG/HR Sodium Chloride 100 mls @ 999 mls/hr 07/05/19 13:41 Nacl 0.9% IV FEDE PRN Hypotension Meropenem 500 mg in 50 mls @ 50 mls/hr 07/07/19 14:00 07/09/19 22:16 Merrem/Ns 500 Mg/50 Ml IV 50 mls/hr Q12HR YANG Administration Insulin Glargine 15 units 07/09/19 10:00 07/09/19 10:29 Lantus SUB-Q 15 units DAILY YANG Administration Insulin Human Lispro 0 unit 07/03/19 06:00 07/10/19 06:23 Humalog SUB-Q 6 unit Q6HR YANG Administration Protocol Multi-Ingred Cream/Lotion/Oil/Oint 1 applic 07/03/19 00:53 Artificial Tears Ophth Oint OU Q4HR PRN Dry Eye(s) Simple Syrup 15 ml 07/05/19 16:27 Simple Syrup FEEDTUBE PRN PRN Hypoglycemia Simple Syrup 30 ml 07/05/19 16:27 Simple Syrup FEEDTUBE PRN PRN Hypoglycemia Sodium Bicarbonate 325 mg 07/05/19 16:27 Sodium Bicarbonate FEEDTUBE PRN PRN For Clogged Feeding Tube Sodium Chloride 10 ml 07/03/19 10:00 07/09/19 22:17 Sodium Chloride Flush Syringe 10 Ml IV 10 ml BID YANG Administration Sodium Chloride 10 ml 07/03/19 04:34 07/05/19 10:42 Sodium Chloride Flush Syringe 10 Ml IV 10 ml PRN PRN Administration LINE FLUSH
[2019-07-10] MEDS: HEPARIN 5,000 UNIT/1 ML VIAL SUB-Q SCH ×2 (13:01→21:09)
[2019-07-10] MEDS: FAMOTIDINE 20 MG TAB PO SCH (13:01)
[2019-07-10] MEDS: INSULIN GLARGINE 100 UNITS/ML SUB-Q SCH (13:07)
--- NOTE | 2019-07-10 13:08 | Progress Note ---
Assessment and Plan Cultures: 07/03/2019 blood culture: No growth 07/03/2019 tracheal aspirate culture: Usual respiratory leelee A/P: 59 yo F with ESRD on HD, diabetes, HTN, CHF, seizure, bipolar, depression and was recently hospitalized with altered mental status and found to have leukocytosis, now readmitted with respiratory distress and hypoxia: #Neutrophilic leukocytosis: source unclear. ?pneumonia, minimal cellulitis around sacral decubitus. Cultures negative. On empiric Meropenem given recent hospitalization and exposure to antibiotics. Worse today. atient opens eyes, follows commands. No other concerns per discussion with RN. No significant respiratory secretions per RT. #Acute respiratory failure: on the vent. CHF v/s pneumonia. #ESRD on HD: renally dose abx. #Sacral decubitus ulcer: wound care. CT non contrasted without evidence of fluid collection or osteomyelitis. #Acute encephalopathy: CT head on admission was unremarkable for acute process. Recs: continue renally adjusted IV Meropenem D4 wound care to sacral wound if WBC worsens, would get CT chest, abdomen and pelvis with IV contrast after coordinating with nephrology/HD Marilu Cervantes MD, FACP [facility] C: [phone] O: [phone] F: [phone] Subjective Date of service: 07/10/19 Principal diagnosis: Acute hypoxemic resp failure; AMS; Severe Sepsis; ESRD; CHF; HTN; Seizure Interval history: No fever. But increasing leucocytosis today. Remains intubated, in ICU. Patient opens eyes, follows commands. No other concerns per discussion with RN. No significant respiratory secretions per RT. Objective - Exam Narrative Exam: Physical Exam: Constitutional: opens eyes, follows commands, intubated Head, Ears, Nose: Normocephalic, atraumatic. External ears, nose normal Eyes: Conjunctivae/corneas clear. No icterus. No ptosis. Neck: intubated Oral: intubated Cardiovascular: S1, S2 normal. Respiratory: Good air entry, clear to auscultation bilaterally GI: Soft, non-tender; bowel sounds normal. No peritoneal signs. Musculoskeletal: No pedal edema, no cyanosis. Left forearm AVF Skin: Sacral decubitus with dressing Hem/Lymphatic: No palpable cervical or supraclavicular nodes. No lymphangitis Psych: no agitation Neurological: opens eyes, follows commands , intubated, on vent - Constitutional Vitals: Vital Signs Temp Pulse Resp BP Pulse Ox 98.3 F 73 17 133/67 100 07/10/19 09:16 07/10/19 12:00 07/10/19 10:45 07/10/19 12:00 07/10/19 12:00 Temperature -Last 24 Hours Temperature 98.3 F Temperature 98.3 F Temperature 97.8 F Temperature 97.3 F Temperature 97.6 F Temperature 98.8 F - Labs CBC & Chem 7: 07/10/19 04:55 07/10/19 04:55 Labs: Abnormal lab results 07/09/19 07/09/19 07/09/19 Range/Units 13:07 17:59 23:18 WBC (4.5-11.0) K/mm3 RDW (13.2-15.2) % Seg Neuts % (Manual) (40.0-70.0) % Seg Neutrophils # Man (1.8-7.7) K/mm3 Monocytes # (Manual) (0.0-0.8) K/mm3 ABG pO2 (80.0-90.0) mm Hg ABG HCO3 (20.0-26.0) mmol/L ABG Base Excess (-2.0-3.0) mmol/L Sodium (137-145) mmol/L Chloride (98-107) mmol/L BUN (7-17) mg/dL Creatinine (0.7-1.2) mg/dL Glucose (65-100) mg/dL POC Glucose 315 H 204 H 199 H (70-105) Calcium (8.4-10.2) mg/dL 07/10/19 07/10/19 07/10/19 Range/Units 04:00 04:55 04:55 WBC 23.9 H (4.5-11.0) K/mm3 RDW 18.1 H (13.2-15.2) % Seg Neuts % (Manual) 81.0 H (40.0-70.0) % Seg Neutrophils # Man 19.4 H (1.8-7.7) K/mm3 Monocytes # (Manual) 1.0 H (0.0-0.8) K/mm3 ABG pO2 77.3 L (80.0-90.0) mm Hg ABG HCO3 30.4 H (20.0-26.0) mmol/L ABG Base Excess 5.1 H (-2.0-3.0) mmol/L Sodium 133 L (137-145) mmol/L Chloride 88.0 L (98-107) mmol/L BUN 64 H (7-17) mg/dL Creatinine 3.7 H (0.7-1.2) mg/dL Glucose 250 H (65-100) mg/dL POC Glucose (70-105) Calcium 11.1 H (8.4-10.2) mg/dL 07/10/19 07/10/19 Range/Units 05:39 12:02 WBC (4.5-11.0) K/mm3 RDW (13.2-15.2) % Seg Neuts % (Manual) (40.0-70.0) % Seg Neutrophils # Man (1.8-7.7) K/mm3 Monocytes # (Manual) (0.0-0.8) K/mm3 ABG pO2 (80.0-90.0) mm Hg ABG HCO3 (20.0-26.0) mmol/L ABG Base Excess (-2.0-3.0) mmol/L Sodium (137-145) mmol/L Chloride (98-107) mmol/L BUN (7-17) mg/dL Creatinine (0.7-1.2) mg/dL Glucose (65-100) mg/dL POC Glucose 288 H 204 H (70-105) Calcium (8.4-10.2) mg/dL - Imaging and cardiology Chest x-ray: report reviewed, image reviewed (no significant interval change)
[2019-07-10] MEDS: MEROPENEM/NS 500 MG/50 ML 500 MG/50 ML BAG IV SCH ×2 (13:20→21:09)
--- NOTE | 2019-07-10 15:54 | Progress Note ---
Assessment and Plan Acute hypoxemic respiratory failure Toxic metabolic encephalopathy Severe Sepsis ESRD on HD Congestive heart Failure Accelerated Hypertension H/O Seizure - continue Reglan re: episode of high resuiduals and tube feeds being held - continue Lantus at 18 units SQ daily - continue prn albuterol nebs - keep set rate on MVS at 12 - sedation target for RASS 0 to -1 - VAP bundle addressed (aspiration precautions, HOB>40 degrees) - continue lung protective strategies - continue to wean FiO2 for O2 sats >90% - continue bronchodilators with pulmonary hygiene per RT - continue Daily SAT's and SBT assessment as tolerated - continue enteral nutrition at goal rate as tolerated - AED's per neurology recommendations - HD/UF per nephrology rec's for toxin and volume clearance - continue Empiric antibiotics therapies (de-escalate based on cultures and clinical condition) - ID evaluation ongoing - VTE prophylaxis with heparin SQ - continue stress ulcer prophylaxis with Famotidine - accuchecks with glycemic control for SSI (While critically ill target blood glucose of 140-180 mg/dL; avoid hypoglycemia) - mobility protocols for pressure ulcer prevention - Monitor hemodynamics closely - Fluid restrictive strategies as tolerated by hemodynamics and by her renal function (patient has a history of cardiomyopathy and has elevated BNP at this time) - continue to avoid nephrotoxins, dose all medications fro CrCL and GFR - Monitor electrolyte profile closely and replete as indicated - Chronic home medications, resume as clinically indicated - continue other care per attending / other consultants ... re-evaluate in am & prn CONDITION: CRITICAL PROGNOSIS: GUARDED CODE STATUS: FULL CODE The high probability of a clinically significant, sudden or life-threatening deterioration of the [respiratory, cardiovascular, neurology, renal] system(s) required my full and direct attention, intervention and personal management. The aggregate critical care time was [32] minutes without overlap. Time includes spent on; [x] Data Review and interpretation [x] Patient assessment and monitoring of vital signs [x] Documentation [x] Medication orders and management Subjective Date of service: 07/10/19 Principal diagnosis: Acute hypoxemic resp failure; AMS; Severe Sepsis; ESRD; CHF; HTN; Seizure Interval history: Patient is seen today for: Acute hypoxemic respiratory failure; Toxic metabolic encephalopathy; Severe Sepsis; ESRD on HD; CHF; Accelerated Hypertension; H/O Seizure Seen and examined at bedside; 24hour events reviewed; nursing and respiratory care staff consulted; no adverse overnight events reported to me; resting peacefully in bed; AMS is persistent; failed SBT yesterday with increased work of breathing; tolerating HD/UF but minimal UF scheduled; no high grade fevers Objective Vital Signs - 12hr 07/10/19 07/10/19 07/10/19 04:00 04:01 05:00 Temperature 97.8 F Pulse Rate 78 79 80 Respiratory 12 12 17 Rate Blood Pressure 173/81 156/72 O2 Sat by Pulse 100 95 98 Oximetry O2 Sat by Pulse Oximetry [ Anterior Bilateral Throughout] 07/10/19 07/10/19 07/10/19 06:00 07:00 07:56 Temperature Pulse Rate 77 75 78 Respiratory 14 13 Rate Blood Pressure 126/68 136/70 136/70 O2 Sat by Pulse 99 98 100 Oximetry O2 Sat by Pulse Oximetry [ Anterior Bilateral Throughout] 07/10/19 07/10/19 07/10/19 08:00 08:30 08:40 Temperature 98.3 F Pulse Rate 78 79 75 Respiratory 15 17 Rate Blood Pressure 138/72 138/72 132/69 O2 Sat by Pulse 97 Oximetry O2 Sat by Pulse 99 Oximetry [ Anterior Bilateral Throughout] 07/10/19 07/10/19 07/10/19 08:45 09:00 09:15 Temperature Pulse Rate 77 80 83 Respiratory 17 18 Rate Blood Pressure 129/70 121/64 115/64 O2 Sat by Pulse 100 98 Oximetry O2 Sat by Pulse Oximetry [ Anterior Bilateral Throughout] 07/10/19 07/10/19 07/10/19 09:16 09:30 09:45 Temperature 98.3 F Pulse Rate 85 83 Respiratory 19 18 Rate Blood Pressure 107/62 99/60 O2 Sat by Pulse 99 99 Oximetry O2 Sat by Pulse Oximetry [ Anterior Bilateral Throughout] 07/10/19 07/10/19 07/10/19 10:00 10:15 10:30 Temperature Pulse Rate 81 81 80 Respiratory 17 20 16 Rate Blood Pressure 99/62 103/60 102/58 O2 Sat by Pulse 99 100 100 Oximetry O2 Sat by Pulse Oximetry [ Anterior Bilateral Throughout] 07/10/19 07/10/19 07/10/19 10:45 11:02 11:15 Temperature Pulse Rate 81 84 85 Respiratory 17 Rate Blood Pressure 106/59 98/56 83/50 O2 Sat by Pulse 100 Oximetry O2 Sat by Pulse Oximetry [ Anterior Bilateral Throughout] 07/10/19 07/10/19 07/10/19 11:20 11:30 11:35 Temperature Pulse Rate 82 81 79 Respiratory Rate Blood Pressure 82/51 86/52 94/53 O2 Sat by Pulse Oximetry O2 Sat by Pulse Oximetry [ Anterior Bilateral Throughout] 07/10/19 07/10/19 07/10/19 11:53 12:00 13:46 Temperature Pulse Rate 72 73 73 Respiratory Rate Blood Pressure 96/52 133/67 146/69 O2 Sat by Pulse 100 98 Oximetry O2 Sat by Pulse Oximetry [ Anterior Bilateral Throughout] 07/10/19 07/10/19 14:36 15:37 Temperature Pulse Rate 79 78 Respiratory Rate Blood Pressure 152/76 124/70 O2 Sat by Pulse 100 99 Oximetry O2 Sat by Pulse Oximetry [ Anterior Bilateral Throughout] Constitutional: appears uncomfortable, other (middle aged thin female, normocephalic with mildly increased resp effort on MVS) Eyes: non-icteric ENT: oropharynx dry, other (ETT 23 cm JORY) Neck: supple, no lymphadenopathy, no JVD Effort: mildly labored Ascultation: Bilateral: diminished breath sounds, rhonchi Percussion: Bilateral: not dull Cardiovascular: regular rate and rhythm Gastrointestinal: normoactive bowel sounds, soft, non-tender, non-distended Integumentary: normal Extremities: no cyanosis, no edema, pink and warm, pulses normal Neurologic: unable to assess Psychiatric: other (unable to assess re: AMS) CBC and BMP: 07/11/19 06:10 07/11/19 06:10 ABG, PT/INR, D-dimer: ABG ABG pH 7.424 pH Units (7.350-7.450) 07/10/19 04:00 ABG pCO2 47.5 mm Hg 07/10/19 04:00 ABG pO2 77.3 mm Hg (80.0-90.0) L 07/10/19 04:00 ABG O2 Saturation 97.0 % (95.0-99.0) 07/10/19 04:00 Abnormal lab findings: Abnormal Labs 07/03/19 07/03/19 07/03/19 01:00 01:00 01:00 WBC 17.9 H RDW 17.8 H Lymph % (Auto) 11.7 L Wallace % (Auto) Wallace # 1.0 H Seg Neutrophils % 82.1 H Seg Neuts % (Manual) Seg Neutrophils # 14.7 H Seg Neutrophils # Man Monocytes # (Manual) ABG pH ABG pO2 ABG HCO3 ABG O2 Saturation ABG Base Excess ABG Hemoglobin Oxyhemoglobin Sodium Chloride 92.9 L Carbon Dioxide BUN 45 H Creatinine 5.3 H Glucose 229 H POC Glucose Hemoglobin A1c Calcium 10.5 H Phosphorus NT-Pro-B Natriuret Pep > 00693 H Albumin 2.5 L 07/03/19 07/03/19 07/03/19 01:00 01:35 04:30 WBC RDW Lymph % (Auto) Wallace % (Auto) Wallace # Seg Neutrophils % Seg Neuts % (Manual) Seg Neutrophils # Seg Neutrophils # Man Monocytes # (Manual) ABG pH 7.555 H 7.489 H ABG pO2 65.4 L 149.9 H ABG HCO3 28.9 H 27.9 H ABG O2 Saturation ABG Base Excess 6.7 H 4.5 H ABG Hemoglobin Oxyhemoglobin 94.0 L Sodium Chloride Carbon Dioxide BUN Creatinine Glucose POC Glucose Hemoglobin A1c 7.0 H Calcium Phosphorus NT-Pro-B Natriuret Pep Albumin 07/03/19 07/03/19 07/03/19 12:10 17:35 23:59 WBC RDW Lymph % (Auto) Wallace % (Auto) Wallace # Seg Neutrophils % Seg Neuts % (Manual) Seg Neutrophils # Seg Neutrophils # Man Monocytes # (Manual) ABG pH ABG pO2 ABG HCO3 ABG O2 Saturation ABG Base Excess ABG Hemoglobin Oxyhemoglobin Sodium Chloride Carbon Dioxide BUN Creatinine Glucose POC Glucose 246 H 163 H 112 H Hemoglobin A1c Calcium Phosphorus NT-Pro-B Natriuret Pep Albumin 07/04/19 07/04/19 07/04/19 04:24 04:56 04:56 WBC 17.3 H RDW 18.0 H Lymph % (Auto) 8.7 L Wallace % (Auto) Wallace # 0.9 H Seg Neutrophils % 85.1 H Seg Neuts % (Manual) Seg Neutrophils # 14.8 H Seg Neutrophils # Man Monocytes # (Manual) ABG pH 7.496 H ABG pO2 74.0 L ABG HCO3 28.1 H ABG O2 Saturation ABG Base Excess 4.7 H ABG Hemoglobin Oxyhemoglobin 93.9 L Sodium Chloride 95.5 L Carbon Dioxide BUN 26 H Creatinine 3.4 H Glucose 145 H POC Glucose Hemoglobin A1c Calcium Phosphorus NT-Pro-B Natriuret Pep Albumin 07/04/19 07/04/19 07/05/19 07:04 17:56 01:45 WBC RDW Lymph % (Auto) Wallace % (Auto) Wallace # Seg Neutrophils % Seg Neuts % (Manual) Seg Neutrophils # Seg Neutrophils # Man Monocytes # (Manual) ABG pH ABG pO2 ABG HCO3 ABG O2 Saturation ABG Base Excess ABG Hemoglobin Oxyhemoglobin Sodium Chloride Carbon Dioxide BUN Creatinine Glucose POC Glucose 162 H 273 H 148 H Hemoglobin A1c Calcium Phosphorus NT-Pro-B Natriuret Pep Albumin 07/05/19 07/05/19 07/05/19 03:07 03:07 05:57 WBC 18.7 H RDW 17.7 H Lymph % (Auto) 7.6 L Wallace % (Auto) Wallace # 1.2 H Seg Neutrophils % 84.2 H Seg Neuts % (Manual) Seg Neutrophils # 15.7 H Seg Neutrophils # Man Monocytes # (Manual) ABG pH ABG pO2 ABG HCO3 ABG O2 Saturation ABG Base Excess ABG Hemoglobin Oxyhemoglobin Sodium Chloride 94.7 L 95.6 L Carbon Dioxide 19 L BUN 23 H 26 H Creatinine 2.7 H 2.9 H Glucose 161 H 179 H POC Glucose Hemoglobin A1c Calcium 10.3 H 10.5 H Phosphorus 5.20 H D NT-Pro-B Natriuret Pep Albumin 07/05/19 07/05/19 07/05/19 06:50 07:52 09:06 WBC 16.8 H RDW 18.1 H Lymph % (Auto) 8.0 L Wallace % (Auto) Wallace # 1.1 H Seg Neutrophils % 84.4 H Seg Neuts % (Manual) Seg Neutrophils # 14.2 H Seg Neutrophils # Man Monocytes # (Manual) ABG pH ABG pO2 ABG HCO3 ABG O2 Saturation ABG Base Excess ABG Hemoglobin 11.7 L Oxyhemoglobin 94.6 L Sodium Chloride Carbon Dioxide BUN Creatinine Glucose POC Glucose 195 H Hemoglobin A1c Calcium Phosphorus NT-Pro-B Natriuret Pep Albumin 07/05/19 07/05/19 07/06/19 12:26 17:53 01:03 WBC RDW Lymph % (Auto) Wallace % (Auto) Wallace # Seg Neutrophils % Seg Neuts % (Manual) Seg Neutrophils # Seg Neutrophils # Man Monocytes # (Manual) ABG pH ABG pO2 ABG HCO3 ABG O2 Saturation ABG Base Excess ABG Hemoglobin Oxyhemoglobin Sodium Chloride Carbon Dioxide BUN Creatinine Glucose POC Glucose 222 H 214 H 217 H Hemoglobin A1c Calcium Phosphorus NT-Pro-B Natriuret Pep Albumin 07/06/19 07/06/19 07/06/19 03:45 04:37 04:37 WBC 15.7 H RDW 17.9 H Lymph % (Auto) 9.3 L Wallace % (Auto) 8.2 H Wallace # 1.3 H Seg Neutrophils % 81.5 H Seg Neuts % (Manual) Seg Neutrophils # 12.8 H Seg Neutrophils # Man Monocytes # (Manual) ABG pH ABG pO2 67.1 L ABG HCO3 ABG O2 Saturation 93.3 L ABG Base Excess ABG Hemoglobin Oxyhemoglobin 91.2 L Sodium Chloride 97.5 L Carbon Dioxide 20 L BUN 50 H Creatinine 4.5 H D Glucose 192 H POC Glucose Hemoglobin A1c Calcium Phosphorus 5.80 H NT-Pro-B Natriuret Pep Albumin 07/06/19 07/06/19 07/06/19 06:10 13:47 18:40 WBC RDW Lymph % (Auto) Wallace % (Auto) Wallace # Seg Neutrophils % Seg Neuts % (Manual) Seg Neutrophils # Seg Neutrophils # Man Monocytes # (Manual) ABG pH ABG pO2 ABG HCO3 ABG O2 Saturation ABG Base Excess ABG Hemoglobin Oxyhemoglobin Sodium Chloride Carbon Dioxide BUN Creatinine Glucose POC Glucose 214 H 233 H 225 H Hemoglobin A1c Calcium Phosphorus NT-Pro-B Natriuret Pep Albumin 07/07/19 07/07/19 07/07/19 00:11 04:30 05:33 WBC RDW Lymph % (Auto) Wallace % (Auto) Wallace # Seg Neutrophils % Seg Neuts % (Manual) Seg Neutrophils # Seg Neutrophils # Man Monocytes # (Manual) ABG pH ABG pO2 113.7 H ABG HCO3 28.6 H ABG O2 Saturation ABG Base Excess 4.0 H ABG Hemoglobin 11.3 L Oxyhemoglobin Sodium Chloride Carbon Dioxide BUN Creatinine Glucose POC Glucose 288 H 204 H Hemoglobin A1c Calcium Phosphorus NT-Pro-B Natriuret Pep Albumin 07/07/19 07/07/19 07/07/19 05:38 05:38 11:39 WBC 15.0 H RDW 18.3 H Lymph % (Auto) 10.9 L Wallace % (Auto) 8.9 H Wallace # 1.3 H Seg Neutrophils % 79.6 H Seg Neuts % (Manual) Seg Neutrophils # 11.9 H Seg Neutrophils # Man Monocytes # (Manual) ABG pH ABG pO2 ABG HCO3 ABG O2 Saturation ABG Base Excess ABG Hemoglobin Oxyhemoglobin Sodium Chloride 94.8 L Carbon Dioxide BUN 32 H Creatinine 2.8 H Glucose 236 H POC Glucose 309 H Hemoglobin A1c Calcium 10.6 H Phosphorus NT-Pro-B Natriuret Pep Albumin 07/07/19 07/07/19 07/08/19 18:09 23:30 03:49 WBC RDW Lymph % (Auto) Wallace % (Auto) Wallace # Seg Neutrophils % Seg Neuts % (Manual) Seg Neutrophils # Seg Neutrophils # Man Monocytes # (Manual) ABG pH ABG pO2 116.2 H ABG HCO3 27.7 H ABG O2 Saturation ABG Base Excess ABG Hemoglobin 11.2 L Oxyhemoglobin Sodium Chloride Carbon Dioxide BUN Creatinine Glucose POC Glucose 280 H 398 H Hemoglobin A1c Calcium Phosphorus NT-Pro-B Natriuret Pep Albumin 07/08/19 07/08/19 07/08/19 04:38 04:38 05:37 WBC 13.5 H RDW 18.3 H Lymph % (Auto) Wallace % (Auto) 9.5 H Wallace # 1.3 H Seg Neutrophils % 75.6 H Seg Neuts % (Manual) Seg Neutrophils # 10.2 H Seg Neutrophils # Man Monocytes # (Manual) ABG pH ABG pO2 ABG HCO3 ABG O2 Saturation ABG Base Excess ABG Hemoglobin Oxyhemoglobin Sodium Chloride 94.9 L Carbon Dioxide BUN 64 H Creatinine 4.2 H Glucose 288 H POC Glucose 270 H Hemoglobin A1c Calcium 10.9 H Phosphorus NT-Pro-B Natriuret Pep Albumin 07/08/19 07/08/19 07/08/19 11:47 17:36 23:23 WBC RDW Lymph % (Auto) Wallace % (Auto) Wallace # Seg Neutrophils % Seg Neuts % (Manual) Seg Neutrophils # Seg Neutrophils # Man Monocytes # (Manual) ABG pH ABG pO2 ABG HCO3 ABG O2 Saturation ABG Base Excess ABG Hemoglobin Oxyhemoglobin Sodium Chloride Carbon Dioxide BUN Creatinine Glucose POC Glucose 211 H 259 H 276 H Hemoglobin A1c Calcium Phosphorus NT-Pro-B Natriuret Pep Albumin 07/09/19 07/09/19 07/09/19 04:08 04:29 04:29 WBC 12.8 H RDW 17.7 H Lymph % (Auto) 12.5 L Wallace % (Auto) 8.4 H Wallace # 1.1 H Seg Neutrophils % 77.0 H Seg Neuts % (Manual) Seg Neutrophils # 9.9 H Seg Neutrophils # Man Monocytes # (Manual) ABG pH 7.471 H ABG pO2 141.8 H ABG HCO3 32.3 H ABG O2 Saturation ABG Base Excess 7.8 H ABG Hemoglobin 11.3 L Oxyhemoglobin Sodium Chloride 94.1 L Carbon Dioxide BUN 36 H Creatinine 2.6 H Glucose 217 H POC Glucose Hemoglobin A1c Calcium 11.0 H Phosphorus NT-Pro-B Natriuret Pep Albumin 07/09/19 07/09/19 07/09/19 05:25 10:46 13:07 WBC RDW Lymph % (Auto) Wallace % (Auto) Wallace # Seg Neutrophils % Seg Neuts % (Manual) Seg Neutrophils # Seg Neutrophils # Man Monocytes # (Manual) ABG pH ABG pO2 113.2 H ABG HCO3 30.9 H ABG O2 Saturation ABG Base Excess 6.0 H ABG Hemoglobin 10.5 L Oxyhemoglobin Sodium Chloride Carbon Dioxide BUN Creatinine Glucose POC Glucose 190 H 315 H Hemoglobin A1c Calcium Phosphorus NT-Pro-B Natriuret Pep Albumin 07/09/19 07/09/19 07/10/19 17:59 23:18 04:00 WBC RDW Lymph % (Auto) Wallace % (Auto) Wallace # Seg Neutrophils % Seg Neuts % (Manual) Seg Neutrophils # Seg Neutrophils # Man Monocytes # (Manual) ABG pH ABG pO2 77.3 L ABG HCO3 30.4 H ABG O2 Saturation ABG Base Excess 5.1 H ABG Hemoglobin Oxyhemoglobin Sodium Chloride Carbon Dioxide BUN Creatinine Glucose POC Glucose 204 H 199 H Hemoglobin A1c Calcium Phosphorus NT-Pro-B Natriuret Pep Albumin 07/10/19 07/10/19 07/10/19 04:55 04:55 05:39 WBC 23.9 H RDW 18.1 H Lymph % (Auto) Wallace % (Auto) Wallace # Seg Neutrophils % Seg Neuts % (Manual) 81.0 H Seg Neutrophils # Seg Neutrophils # Man 19.4 H Monocytes # (Manual) 1.0 H ABG pH ABG pO2 ABG HCO3 ABG O2 Saturation ABG Base Excess ABG Hemoglobin Oxyhemoglobin Sodium 133 L Chloride 88.0 L Carbon Dioxide BUN 64 H Creatinine 3.7 H Glucose 250 H POC Glucose 288 H Hemoglobin A1c Calcium 11.1 H Phosphorus NT-Pro-B Natriuret Pep Albumin 07/10/19 12:02 WBC RDW Lymph % (Auto) Wallace % (Auto) Wallace # Seg Neutrophils % Seg Neuts % (Manual) Seg Neutrophils # Seg Neutrophils # Man Monocytes # (Manual) ABG pH ABG pO2 ABG HCO3 ABG O2 Saturation ABG Base Excess ABG Hemoglobin Oxyhemoglobin Sodium Chloride Carbon Dioxide BUN Creatinine Glucose POC Glucose 204 H Hemoglobin A1c Calcium Phosphorus NT-Pro-B Natriuret Pep Albumin Chest x-ray: image reviewed (ETT in good position; rotated ) Allied health notes reviewed: nursing
[2019-07-11] MEDS: INSULIN LISPRO 100 UNIT/ML SUB-Q SCH ×4 (01:23→18:07)
[2019-07-11 06:34] LABS: Hematocrit 31.1 % (30.3-42.9); Hemoglobin 10.1 gm/dl (10.1-14.3); Mean Corpuscular HGB Conc 33 % (30-34); Mean Corpuscular Volume 87 fl (79-97); Platelet Count 315 K/mm3 (140-440); Red Cell Distribution Width 16.8 % (13.2-15.2)
[2019-07-11 06:49] LABS: Calcium 10.8 mg/dL (8.4-10.2)
--- NOTE | 2019-07-11 09:46 | Progress Note ---
Assessment and Plan Assessment and plan: Sepsis -CXR unremarkable -Leukocytosis present -Continue antibiotic, Merrem -Blood cultures negative x 72-hours Acute hypoxic respiratory failure -Continue mechanical ventilation per pulmonary.. Toxic metabolic encephalopathy -Neuro checks -Continue to treat underlying causes. ESRD on HD -M/W/F -Avoid nephrotoxic agents -Renal dose all meds -Nephrology following Congestive heart Failure -BNP >60283 on admission -Monitor input and output. -Cardiology following and reported no evidence of volume overload Hypertension -Continue to monitor BP Insulin-dependent diabetes -POC BG monitoring -SSI coverage prn Hx Seizure -Continue anticonvulsant meds -Seizure precautions. DVT PPX -On Heparin The high probability of a clinically significant, sudden or life threatening deterioration of the [respiratory] system(s) required my full and direct attention, intervention and personal management. The aggregate critical care time was [33] minutes. This time is in addition to time spent performing reported procedures but includes the following: [x] Data Review and interpretation [x] Patient assessment and monitoring of vital signs [x] Documentation [x] Medication orders and management History Interval history: Patient intubated, Fever on 07/08 No more fever X 48hrs Hospitalist Physical - Physical exam Narrative exam: GEN: Not in acute distress, intubated, on vent HEENT: Normocephalic, atraumatic, Neck: supple, No JVD Lungs: Bilateral rhonchi, heart;S1 and S2 reg, no murmurs Abd:soft, non tender, non distended, normal bowel sounds Ext: No edema, no clubbing, no cyanosis Neuro: Intubated, sedated - Constitutional Vitals: Temp Pulse Resp BP Pulse Ox 99.7 F H 81 14 151/71 97 07/11/19 08:00 07/11/19 09:15 07/11/19 09:15 07/11/19 09:15 07/11/19 09:15 General appearance: Present: other (intubated on the vent) MATT score - Matt Score Age > 65: (0) No Aspirin use within the Past 7 Days: (0) No 3 or more CAD Risk Factors: (1) Yes 2 or more Angina events in past 24 hrs: (0) No Known CAD with more than 50% Stenosis: (0) No Elevated Cardiac Markers: (1) Yes ST Deviation Greater than 0.5mm: (0) No MATT Score: 2 Results - Labs CBC & Chem 7: 07/11/19 06:10 07/11/19 06:10 Labs: Laboratory Last Values WBC 16.6 K/mm3 (4.5-11.0) H 07/11/19 06:10 RBC 3.60 M/mm3 (3.65-5.03) L 07/11/19 06:10 Hgb 10.1 gm/dl (10.1-14.3) 07/11/19 06:10 Hct 31.1 % (30.3-42.9) 07/11/19 06:10 MCV 87 fl (79-97) 07/11/19 06:10 MCH 28 pg (28-32) 07/11/19 06:10 MCHC 33 % (30-34) 07/11/19 06:10 RDW 16.8 % (13.2-15.2) H 07/11/19 06:10 Plt Count 315 K/mm3 (140-440) 07/11/19 06:10 Lymph % (Auto) Adjunct Sociology Professor 07/10/19 04:55 [place] % (Auto) Adjunct Sociology Professor 07/10/19 04:55 Eos % (Auto) Adjunct Sociology Professor 07/10/19 04:55 Baso % (Auto) Adjunct Sociology Professor 07/10/19 04:55 Lymph # Adjunct Sociology Professor 07/10/19 04:55 [place] # Adjunct Sociology Professor 07/10/19 04:55 Eos # Adjunct Sociology Professor 07/10/19 04:55 Baso # Adjunct Sociology Professor 07/10/19 04:55 Add Manual Diff Complete 07/10/19 04:55 Total Counted 100 07/10/19 04:55 Seg Neutrophils % Adjunct Sociology Professor 07/10/19 04:55 Seg Neuts % (Manual) 81.0 % (40.0-70.0) H 07/10/19 04:55 Band Neutrophils % 0 % 07/10/19 04:55 Lymphocytes % (Manual) 14.0 % (13.4-35.0) 07/10/19 04:55 Reactive Lymphs % (Man) 0 % 07/10/19 04:55 Monocytes % (Manual) 4.0 % (0.0-7.3) 07/10/19 04:55 Eosinophils % (Manual) 0 % (0.0-4.3) 07/10/19 04:55 Basophils % (Manual) 0 % (0.0-1.8) 07/10/19 04:55 Metamyelocytes % 1.0 % 07/10/19 04:55 Myelocytes % 0 % 07/10/19 04:55 Promyelocytes % 0 % 07/10/19 04:55 Blast Cells % 0 % 07/10/19 04:55 Nucleated RBC % Not Reportable 07/10/19 04:55 Seg Neutrophils # Adjunct Sociology Professor 07/10/19 04:55 Seg Neutrophils # Man 19.4 K/mm3 (1.8-7.7) H 07/10/19 04:55 Band Neutrophils # 0.0 K/mm3 07/10/19 04:55 Lymphocytes # (Manual) 3.3 K/mm3 (1.2-5.4) 07/10/19 04:55 Abs React Lymphs (Man) 0.0 K/mm3 07/10/19 04:55 Monocytes # (Manual) 1.0 K/mm3 (0.0-0.8) H 07/10/19 04:55 Eosinophils # (Manual) 0.0 K/mm3 (0.0-0.4) 07/10/19 04:55 Basophils # (Manual) 0.0 K/mm3 (0.0-0.1) 07/10/19 04:55 Metamyelocytes # 0.2 K/mm3 07/10/19 04:55 Myelocytes # 0.0 K/mm3 07/10/19 04:55 Promyelocytes # 0.0 K/mm3 07/10/19 04:55 Blast Cells # 0.0 K/mm3 07/10/19 04:55 WBC Morphology Not Reportable 07/10/19 04:55 Hypersegmented Neuts Not Reportable 07/10/19 04:55 Hyposegmented Neuts Not Reportable 07/10/19 04:55 Hypogranular Neuts Not Reportable 07/10/19 04:55 Smudge Cells Not Reportable 07/10/19 04:55 Toxic Granulation Not Reportable 07/10/19 04:55 Toxic Vacuolation Not Reportable 07/10/19 04:55 Dohle Bodies Not Reportable 07/10/19 04:55 Pelger-Huet Anomaly Not Reportable 07/10/19 04:55 Andrei Rods Not Reportable 07/10/19 04:55 Platelet Estimate Consistent w auto 07/10/19 04:55 Clumped Platelets Not Reportable 07/10/19 04:55 Plt Clumps, EDTA Not Reportable 07/10/19 04:55 Large Platelets Not Reportable 07/10/19 04:55 Giant Platelets Not Reportable 07/10/19 04:55 Platelet Satelliting Not Reportable 07/10/19 04:55 Plt Morphology Comment Not Reportable 07/10/19 04:55 RBC Morphology Not Reportable 07/10/19 04:55 Dimorphic RBCs Not Reportable 07/10/19 04:55 Polychromasia Not Reportable 07/10/19 04:55 Hypochromasia Not Reportable 07/10/19 04:55 Poikilocytosis Not Reportable 07/10/19 04:55 Anisocytosis Not Reportable 07/10/19 04:55 Microcytosis Not Reportable 07/10/19 04:55 Macrocytosis Not Reportable 07/10/19 04:55 Spherocytes Not Reportable 07/10/19 04:55 Pappenheimer Bodies Not Reportable 07/10/19 04:55 Sickle Cells Not Reportable 07/10/19 04:55 Target Cells Not Reportable 07/10/19 04:55 Tear Drop Cells Not Reportable 07/10/19 04:55 Ovalocytes Not Reportable 07/10/19 04:55 Helmet Cells Not Reportable 07/10/19 04:55 [place] Bodies Not Reportable 07/10/19 04:55 [place] Rings Not Reportable 07/10/19 04:55 [place] Cells Not Reportable 07/10/19 04:55 Bite Cells Not Reportable 07/10/19 04:55 Crenated Cell Not Reportable 07/10/19 04:55 Elliptocytes Not Reportable 07/10/19 04:55 Acanthocytes (Spur) Not Reportable 07/10/19 04:55 Rouleaux Not Reportable 07/10/19 04:55 Hemoglobin C Crystals Not Reportable 07/10/19 04:55 Schistocytes Rare 07/10/19 04:55 Malaria parasites Not Reportable 07/10/19 04:55 Tristen Bodies Not Reportable 07/10/19 04:55 Hem Pathologist Commnt No 07/10/19 04:55 ABG pH 7.424 pH Units (7.350-7.450) 07/10/19 04:00 ABG pCO2 47.5 mm Hg 07/10/19 04:00 ABG pO2 77.3 mm Hg (80.0-90.0) L 07/10/19 04:00 ABG HCO3 30.4 mmol/L (20.0-26.0) H 07/10/19 04:00 ABG O2 Saturation 97.0 % (95.0-99.0) 07/10/19 04:00 ABG O2 Content 18.9 (0.0-44) 07/10/19 04:00 ABG Base Excess 5.1 mmol/L (-2.0-3.0) H 07/10/19 04:00 ABG Hemoglobin 14.1 gm/dl (12.0-16.0) 07/10/19 04:00 ABG Carboxyhemoglobin 1.7 % (0.0-5.0) 07/10/19 04:00 ABG Methemoglobin 0.3 % (0.0-1.5) 07/10/19 04:00 Oxyhemoglobin 95.1 % (95.0-99.0) 07/10/19 04:00 FiO2 30 % 07/10/19 04:00 Sodium 130 mmol/L (137-145) L 07/11/19 06:10 Potassium 3.9 mmol/L (3.6-5.0) 07/11/19 06:10 Chloride 87.4 mmol/L (98-107) L 07/11/19 06:10 Carbon Dioxide 25 mmol/L (22-30) 07/11/19 06:10 Anion Gap 22 mmol/L 07/11/19 06:10 BUN 47 mg/dL (7-17) H 07/11/19 06:10 Creatinine 2.4 mg/dL (0.7-1.2) H 07/11/19 06:10 Estimated GFR 21 ml/min 07/11/19 06:10 BUN/Creatinine Ratio 20 % 07/11/19 06:10 Glucose 138 mg/dL (65-100) H 07/11/19 06:10 POC Glucose 135 (70-105) H 07/11/19 05:31 Hemoglobin A1c 7.0 % (4-6) H 07/03/19 01:00 Lactic Acid 1.20 mmol/L (0.7-2.0) 07/03/19 04:13 Calcium 10.8 mg/dL (8.4-10.2) H 07/11/19 06:10 Phosphorus 2.60 mg/dL (2.5-4.5) D 07/09/19 04:29 Total Bilirubin 0.30 mg/dL (0.1-1.2) 07/03/19 01:00 AST 22 units/L (5-40) 07/03/19 01:00 ALT 9 units/L (7-56) 07/03/19 01:00 Alkaline Phosphatase 101 units/L (35-129) 07/03/19 01:00 Ammonia 35.0 umol/L (25-60) 07/03/19 01:58 NT-Pro-B Natriuret Pep > 28663 pg/mL (0-900) H 07/03/19 01:00 Total Protein 7.0 g/dL (6.3-8.2) 07/03/19 01:00 Albumin 2.5 g/dL (3.9-5) L 07/03/19 01:00 Albumin/Globulin Ratio 0.6 % 07/03/19 01:00 TSH 2.600 mlU/mL (0.270-4.200) 07/03/19 01:00 Urine Color Yellow (Yellow) 07/03/19 Unknown Urine Turbidity Clear (Clear) 07/03/19 Unknown Urine pH 6.0 (5.0-7.0) 07/03/19 Unknown Ur Specific [place] 1.012 (1.003-1.030) 07/03/19 Unknown Urine Protein >500 mg/dL (Negative) 07/03/19 Unknown Urine Glucose (UA) >=500 mg/dL (Negative) 07/03/19 Unknown Urine Ketones Neg mg/dL (Negative) 07/03/19 Unknown Urine Blood Neg (Negative) 07/03/19 Unknown Urine Nitrite Neg (Negative) 07/03/19 Unknown Ur Reducing Substances Not Reportable 07/03/19 Unknown Urine Bilirubin Neg (Negative) 07/03/19 Unknown Urine Ictotest Not Reportable 07/03/19 Unknown Urine Urobilinogen < 2.0 mg/dL (<2.0) 07/03/19 Unknown Ur Leukocyte Esterase Neg (Negative) 07/03/19 Unknown Urine WBC (Auto) 1.0 /HPF (0.0-6.0) 07/03/19 Unknown Urine RBC (Auto) 2.0 /HPF (0.0-6.0) 07/03/19 Unknown U Epithel Cells (Auto) < 1.0 /HPF (0-13.0) 07/03/19 Unknown Urine Mucus Few /HPF 07/03/19 Unknown Random Vancomycin 18.7 ug/mL (0-40.0) 07/08/19 04:38 Influenza A (Rapid) Negative (Negative) 07/05/19 14:30 Influenza B (Rapid) Negative (Negative) 07/05/19 14:30 Active Medications - Current Medications Current Medications: Generic Name Dose Route Start Last Admin Trade Name Freq PRN Reason Stop Dose Admin Acetaminophen 650 mg 07/08/19 10:00 Tylenol NV Q4H PRN Pain, Mild (1-3) Albumin Human 25 gm 07/06/19 13:42 07/08/19 11:59 Alburx 25% (Albumin) IV 25 gm FEDE PRN Administration Hypotension Lipase/Protease/Amylase 1 each 07/05/19 16:[address] 10,500 Unit FEEDTUBE PRN PRN For Clogged Feeding Tube Dextrose 0 ml 07/03/19 04:34 D50w (25gm) Syringe IV Q30MIN PRN Hypoglycemia Protocol Famotidine 20 mg 07/07/19 10:00 07/10/19 13:01 Pepcid PO 20 mg DAILY YANG Administration Heparin Sodium (Porcine) 5,000 unit 07/03/19 10:00 07/10/19 21:09 Heparin SUB-Q 5,000 unit Q12HR YANG Administration Hydrophilic Ointment 1 applic 07/03/19 00:53 Vaseline Lip Therapy TP Q2HR PRN Dry Lips Fentanyl Citrate 2,000 mcg in 100 mls @ 2.608 mls/hr 07/03/19 01:00 07/04/19 18:10 Fentanyl Drip Premix IV Infused TITR YANG Titration Protocol 1 MCG/KG/HR Sodium Chloride 100 mls @ 999 mls/hr 07/05/19 13:41 Nacl 0.9% IV FEDE PRN Hypotension Meropenem 500 mg in 50 mls @ 50 mls/hr 07/07/19 14:00 07/10/19 21:09 Merrem/Ns 500 Mg/50 Ml IV 50 mls/hr Q12HR YANG Administration Insulin Glargine 18 units 07/10/19 13:43 Lantus SUB-Q DAILY [facility] Insulin Human Lispro 0 unit 07/03/19 06:00 07/11/19 05:39 Humalog SUB-Q Not Given Q6HR [facility] Protocol Multi-Ingred Cream/Lotion/Oil/Oint 1 applic 07/03/19 00:53 Artificial Tears Ophth Oint OU Q4HR PRN Dry Eye(s) Simple Syrup 15 ml 07/05/19 16:27 Simple Syrup FEEDTUBE PRN PRN Hypoglycemia Simple Syrup 30 ml 07/05/19 16:27 Simple Syrup FEEDTUBE PRN PRN Hypoglycemia Sodium Bicarbonate 325 mg 07/05/19 16:27 Sodium Bicarbonate FEEDTUBE PRN PRN For Clogged Feeding Tube Sodium Chloride 10 ml 07/03/19 10:00 07/10/19 21:09 Sodium Chloride Flush Syringe 10 Ml IV 10 ml BID YANG Administration Sodium Chloride 10 ml 07/03/19 04:34 07/05/19 10:42 Sodium Chloride Flush Syringe 10 Ml IV 10 ml PRN PRN Administration LINE FLUSH Nutrition/Malnutrition Assess - Dietary Evaluation Nutrition/Malnutrition Findings: Nutrition Notes Start: 07/06/19 08:50 Freq: Status: Active Protocol: Document 07/09/19 10:48 CW (Rec: 07/09/19 11:02 CW [id number]) Co-Sign 07/09/19 10:48 LP Nutrition Notes Initial or Follow up Reassessment Current Diagnosis CKD (stage V CKD),Decubitus( Pressure Ulcer),Diabetes,Heart Failure,Respiratory Failure Other Pertinent Diagnosis on HD, Sacral PU, seizures, bipolar disorder, metabolic encephalopathy Current Diet Nepro 1.8 at 35 ml/hr Labs/Tests BG 190 07/03: HA1C 7 Pertinent Medications Humalog Lantus Height 5 ft 2 in Weight 48.2 kg [place] Body Weight (kg) 50.00 BMI 19.4 Weight change and time frame 2% wt loss noted likely D/T to fluid loss Weight Status Appropriate Subjective/Other Information F/U for TF tolerance and stable wt. Nepro 1.8 currently running at goal rate. TF stopped for 2 hours D/T residuals of 300 mL. TF has since been restarted and is running at goal. Wt is stablizing at approxiamtely 48 kg. Percent of energy/protein needs met: 100%/100% Burn Absent Trauma Absent GI Symptoms None Current % PO Negligible Minimum of two criteria No physical signs of malnutrition #2 Nutrition Diagnosis Increased nutrient needs ( specify in comment below) Comments: Protein Diagnosis Progress(for reassessment Continues documentation) #1 Nutrition Diagnosis Inadequate oral intake Diagnosis Progress(for reassessment Continues documentation) Is patient on ventilator? Yes Is Patient Ambulatory and/or Out of Bed No REE-([facility]-confined to bed) 1223.292 Kcal/Kg value to use for calculation 31 Approximate Energy Requirements Using 1494 kcal/Kg Calculation Used for Recommendations [facility] Additional Notes Protein: 58 -96g (1.2-2g/kg) Fluid: 1-1.5 L/ day Nutrition Intervention Change Diet Order: TF Nutrition Support: Nepro 1.8 at 35ml/hr Flush 150 ml q4h Kcal 1,512 Protein (gm) 68 Fluid (mL) 611 Goal #1 TF tolerance Goal #2 Wound healing Anticipated Discharge Needs: unable to determine at this time Follow-Up By: 07/14/19 Additional Comments F/U for TF tolerance and stable wt.
[2019-07-11] MEDS: HEPARIN 5,000 UNIT/1 ML VIAL SUB-Q SCH ×2 (10:07→22:10)
[2019-07-11] MEDS: MEROPENEM/NS 500 MG/50 ML 500 MG/50 ML BAG IV SCH ×2 (10:07→22:10)
[2019-07-11] MEDS: FAMOTIDINE 20 MG TAB PO SCH (10:07)
[2019-07-11] MEDS: INSULIN GLARGINE 100 UNITS/ML SUB-Q SCH (10:08)
--- NOTE | 2019-07-11 10:40 | Progress Note ---
Assessment and Plan Acute hypoxic respiratory failure on mechanical ventilation Acute metabolic encephalopathy ESRD on HD HTN Sepsis Hx of seizures DM Type 2 on insulin Hypercalemia Plan: - S/p HD yesterday for UF and clearance, UF removed 1 liter - No acute indication for HD today - PRN albumin for intradialytic hypotension - Assess dialysis needs daily - Epogen dosing for anemia management as needed - ID on board, on Abx, follow cultures - Currently Intubated on Vent - as per Pulmonology - Strict I&O - Renally dose meds - This pt undergoes outpatient HD at [facility] every MWF - Renal plan d/w Dr Wray Subjective Date of service: 07/11/19 Principal diagnosis: Acute hypoxemic resp failure; AMS; Severe Sepsis; ESRD; CHF; HTN; Seizure Interval history: Pt seen in ICU intubated, no family at bedside Objective - Vital Signs Vital signs: Vital Signs - 12hr 07/10/19 07/10/19 07/10/19 22:45 22:49 23:00 Temperature Pulse Rate 78 89 80 Respiratory 19 15 13 Rate Blood Pressure 132/68 132/68 140/66 O2 Sat by Pulse 99 100 99 Oximetry 07/10/19 07/10/19 07/10/19 23:03 23:15 23:30 Temperature Pulse Rate 75 74 77 Respiratory 14 15 16 Rate Blood Pressure 140/66 146/66 156/69 O2 Sat by Pulse 100 99 100 Oximetry 07/10/19 07/10/19 07/11/19 23:45 23:47 00:00 Temperature 98 F Pulse Rate 76 77 Respiratory 13 13 Rate Blood Pressure 159/70 150/68 O2 Sat by Pulse 100 100 Oximetry 07/11/19 07/11/19 07/11/19 00:15 00:28 00:30 Temperature Pulse Rate 83 85 86 Respiratory 17 14 Rate Blood Pressure 138/68 145/71 145/71 O2 Sat by Pulse 100 100 98 Oximetry 07/11/19 07/11/19 07/11/19 00:45 01:00 01:15 Temperature Pulse Rate 84 84 82 Respiratory 17 19 14 Rate Blood Pressure 140/71 136/63 143/70 O2 Sat by Pulse 99 97 99 Oximetry 07/11/19 07/11/19 07/11/19 01:30 01:45 02:00 Temperature Pulse Rate 77 80 77 Respiratory 14 15 15 Rate Blood Pressure 140/65 141/68 141/66 O2 Sat by Pulse 99 99 99 Oximetry 07/11/19 07/11/19 07/11/19 02:15 02:30 02:45 Temperature Pulse Rate 76 74 78 Respiratory 16 17 14 Rate Blood Pressure 148/67 154/68 144/66 O2 Sat by Pulse 98 99 99 Oximetry 07/11/19 07/11/19 07/11/19 03:00 03:15 03:30 Temperature Pulse Rate 77 78 74 Respiratory 15 13 15 Rate Blood Pressure 143/66 140/68 133/63 O2 Sat by Pulse 99 100 98 Oximetry 07/11/19 07/11/19 07/11/19 03:38 03:45 03:49 Temperature 99.4 F Pulse Rate 77 80 Respiratory 18 Rate Blood Pressure 133/63 134/68 O2 Sat by Pulse 100 100 Oximetry 07/11/19 07/11/19 07/11/19 04:00 04:15 04:30 Temperature 99.4 F Pulse Rate 77 80 79 Respiratory 13 14 13 Rate Blood Pressure 129/64 134/66 136/67 O2 Sat by Pulse 100 100 99 Oximetry 07/11/19 07/11/19 07/11/19 04:45 05:00 05:15 Temperature Pulse Rate 77 76 82 Respiratory 13 14 12 Rate Blood Pressure 141/68 143/66 138/69 O2 Sat by Pulse 99 97 100 Oximetry 07/11/19 07/11/19 07/11/19 05:30 05:45 06:00 Temperature Pulse Rate 80 79 78 Respiratory 14 14 15 Rate Blood Pressure 128/66 137/65 149/69 O2 Sat by Pulse 100 100 100 Oximetry 07/11/19 07/11/19 07/11/19 06:15 06:30 07:00 Temperature Pulse Rate 82 82 80 Respiratory 15 15 14 Rate Blood Pressure 148/71 148/70 152/72 O2 Sat by Pulse 99 98 99 Oximetry 07/11/19 07/11/19 07/11/19 07:15 07:30 07:45 Temperature Pulse Rate 80 82 80 Respiratory 13 13 14 Rate Blood Pressure 155/71 150/70 149/70 O2 Sat by Pulse 100 99 99 Oximetry 07/11/19 07/11/19 07/11/19 07:52 08:00 08:15 Temperature 99.7 F H Pulse Rate 82 81 83 Respiratory 12 15 Rate Blood Pressure 149/70 150/70 150/71 O2 Sat by Pulse 100 98 97 Oximetry 07/11/19 07/11/19 07/11/19 08:30 08:45 09:00 Temperature Pulse Rate 79 83 83 Respiratory 13 14 14 Rate Blood Pressure 152/70 151/71 158/73 O2 Sat by Pulse 98 98 97 Oximetry 07/11/19 07/11/19 07/11/19 09:15 09:30 09:45 Temperature Pulse Rate 81 82 83 Respiratory 14 14 13 Rate Blood Pressure 151/71 158/71 163/72 O2 Sat by Pulse 97 95 96 Oximetry 07/11/19 07/11/19 07/11/19 10:00 10:15 10:30 Temperature Pulse Rate 77 80 76 Respiratory 13 13 12 Rate Blood Pressure 161/71 161/71 159/67 O2 Sat by Pulse 98 100 97 Oximetry - General Appearance General appearance: intubated EENT: ATNC Neck: no JVD Respiratory: Present: Decreased Breath Sounds (intubated) Cardiology: regular, S1S2, other (ACCESS: Left AVF + thrill and bruit noted) Gastrointestinal: normoactive bowel sounds (orogastric tube intact) Integumentary: warm and dry Neurologic: other (intubated) Musculoskeletal: other (no edema to BLE) Psychiatric: other (unable to assess) - Lab 07/11/19 06:10 07/11/19 06:10 Most recent lab results ABG pH 7.424 pH Units (7.350-7.450) 07/10/19 04:00 ABG pCO2 47.5 mm Hg 07/10/19 04:00 ABG pO2 77.3 mm Hg (80.0-90.0) L 07/10/19 04:00 ABG HCO3 30.4 mmol/L (20.0-26.0) H 07/10/19 04:00 ABG O2 Saturation 97.0 % (95.0-99.0) 07/10/19 04:00 Calcium 10.8 mg/dL (8.4-10.2) H 07/11/19 06:10 Phosphorus 2.60 mg/dL (2.5-4.5) D 07/09/19 04:29 Medications & Allergies - Medications Allergies/Adverse Reactions: Allergies No Known Allergies Allergy (Verified 07/03/19 10:58) Home Medications: Home Medications Medication Instructions Recorded Confirmed Last Taken Type Amlodipine Besylate [Norvasc] 10 mg PO DAILY 06/24/19 07/04/19 Unknown History AtorvaSTATin [Lipitor] 20 mg PO QHS 06/24/19 07/04/19 Unknown History Bumetanide 1 mg PO DAILY 06/24/19 07/04/19 Unknown History Cinacalcet HCl 30 mg PO DAILY 06/24/19 07/04/19 Unknown History Divalproex Sodium [Depakote 500 mg PO BID 06/24/19 07/04/19 Unknown History Sprinkle] Lispro Insulin [HumaLOG] 0 - 200 unit SQ ACHS 06/24/19 07/04/19 Unknown History Vit B Comp No.3/Folic/C/Biotin 1 each PO DAILY 06/24/19 07/04/19 Unknown History [Nephro-Umu Rx Tablet] carvediloL [Coreg] 25 mg PO BID 06/24/19 07/04/19 Unknown History hydrALAZINE [Apresoline TAB] 50 mg PO Q8HR 06/24/19 07/04/19 Unknown History ALBUTEROL NEB's [Proventil 0.083% 2.5 mg IH TIDRT #30 nebu 06/30/19 07/04/19 Unknown Rx NEBS] Lactulose [Cephulac] 20 gm PO Q8HR oral.liqd 06/30/19 07/04/19 Unknown Rx Sevelamer Carbonate [Renvela] 800 mg PO TIDWM tablet 06/30/19 07/04/19 Unknown Rx risperiDONE [RisperDAL] 0.5 mg PO BID tablet 06/30/19 07/04/19 Unknown Rx Active Medications: Generic Name Dose Route Start Last Admin Trade Name Freq PRN Reason Stop Dose Admin Acetaminophen 650 mg 07/08/19 10:[address] Q4H PRN Pain, Mild (1-3) Albumin Human 25 gm 07/06/19 13:42 07/08/19 11:59 Alburx 25% (Albumin) IV 25 gm FEDE PRN Administration Hypotension Lipase/Protease/Amylase 1 each 07/05/19 16:27 Pancredelfino [place] 10,500 Unit FEEDTUBE PRN PRN For Clogged Feeding Tube Dextrose 0 ml 07/03/19 04:34 D50w (25gm) Syringe IV Q30MIN PRN Hypoglycemia Protocol Famotidine 20 mg 07/07/19 10:00 07/11/19 10:07 Pepcid PO 20 mg DAILY YANG Administration Heparin Sodium (Porcine) 5,000 unit 07/03/19 10:00 07/11/19 10:07 Heparin SUB-Q 5,000 unit Q12HR YANG Administration Hydrophilic Ointment 1 applic 07/03/19 00:53 Vaseline Lip Therapy TP Q2HR PRN Dry Lips Fentanyl Citrate 2,000 mcg in 100 mls @ 2.608 mls/hr 07/03/19 01:00 07/04/19 18:10 Fentanyl Drip Premix IV Infused TITR YANG Titration Protocol 1 MCG/KG/HR Sodium Chloride 100 mls @ 999 mls/hr 07/05/19 13:41 Nacl 0.9% IV FEDE PRN Hypotension Meropenem 500 mg in 50 mls @ 50 mls/hr 07/07/19 14:00 07/11/19 10:07 Merrem/Ns 500 Mg/50 Ml IV 50 mls/hr Q12HR YANG Administration Insulin Glargine 18 units 07/10/19 13:43 07/11/19 10:08 Lantus SUB-Q 18 units DAILY YANG Administration Insulin Human Lispro 0 unit 07/03/19 06:00 07/11/19 05:39 Humalog SUB-Q Not Given Q6HR YANG Protocol Multi-Ingred Cream/Lotion/Oil/Oint 1 applic 07/03/19 00:53 Artificial Tears Ophth Oint OU Q4HR PRN Dry Eye(s) Simple Syrup 15 ml 07/05/19 16:27 Simple Syrup FEEDTUBE PRN PRN Hypoglycemia Simple Syrup 30 ml 07/05/19 16:27 Simple Syrup FEEDTUBE PRN PRN Hypoglycemia Sodium Bicarbonate 325 mg 07/05/19 16:27 Sodium Bicarbonate FEEDTUBE PRN PRN For Clogged Feeding Tube Sodium Chloride 10 ml 07/03/19 10:00 07/11/19 10:09 Sodium Chloride Flush Syringe 10 Ml IV 10 ml BID YANG Administration Sodium Chloride 10 ml 07/03/19 04:34 07/05/19 10:42 Sodium Chloride Flush Syringe 10 Ml IV 10 ml PRN PRN Administration LINE FLUSH
--- NOTE | 2019-07-11 16:32 | Progress Note ---
Assessment and Plan Acute hypoxemic respiratory failure Toxic metabolic encephalopathy Severe Sepsis ESRD on HD Congestive heart Failure Accelerated Hypertension H/O Seizure - continue Daily SAT's and SBT assessment as tolerated - sedation target for RASS 0 to -1 - VAP bundle addressed (aspiration precautions, HOB>40 degrees) - continue lung protective strategies - continue to wean FiO2 for O2 sats >90% - continue bronchodilators with pulmonary hygiene per RT - continue Reglan re: episode of high resuiduals and tube feeds being held - continue Lantus at 18 units SQ daily - continue prn albuterol nebs - continue enteral nutrition at goal rate as tolerated - AED's per neurology recommendations - HD/UF per nephrology rec's for toxin and volume clearance - continue Empiric antibiotics therapies (de-escalate based on cultures and clinical condition) - ID evaluation ongoing - VTE prophylaxis with heparin SQ - continue stress ulcer prophylaxis with Famotidine - accuchecks with glycemic control for SSI (While critically ill target blood glucose of 140-180 mg/dL; avoid hypoglycemia) - mobility protocols for pressure ulcer prevention - Monitor hemodynamics closely - Fluid restrictive strategies as tolerated by hemodynamics and by her renal function (patient has a history of cardiomyopathy and has elevated BNP at this time) - continue to avoid nephrotoxins, dose all medications fro CrCL and GFR - Monitor electrolyte profile closely and replete as indicated - Chronic home medications, resume as clinically indicated - continue other care per attending / other consultants ... re-evaluate in am & prn CONDITION: CRITICAL PROGNOSIS: GUARDED CODE STATUS: FULL CODE The high probability of a clinically significant, sudden or life-threatening deterioration of the [respiratory, cardiovascular, neurology, renal] system(s) required my full and direct attention, intervention and personal management. The aggregate critical care time was [32] minutes without overlap. Time includes spent on; [x] Data Review and interpretation [x] Patient assessment and monitoring of vital signs [x] Documentation [x] Medication orders and management Subjective Date of service: 07/11/19 Principal diagnosis: Acute hypoxemic resp failure; AMS; Severe Sepsis; ESRD; CHF; HTN; Seizure Interval history: Patient is seen today for: Acute hypoxemic respiratory failure; Toxic metabolic encephalopathy; Severe Sepsis; ESRD on HD; CHF; Accelerated Hypertension; H/O Seizure Seen and examined at bedside; 24hour events reviewed; nursing and respiratory care staff consulted; no adverse overnight events reported to me; resting peacefully in bed; remains a difficult wean; failed SBT today; no emesis or overt aspiration; AMS is persistent Objective Vital Signs - 12hr 07/11/19 07/11/19 07/11/19 04:45 05:00 05:15 Temperature Pulse Rate 77 76 82 Respiratory 13 14 12 Rate Blood Pressure 141/68 143/66 138/69 O2 Sat by Pulse 99 97 100 Oximetry 07/11/19 07/11/19 07/11/19 05:30 05:45 06:00 Temperature Pulse Rate 80 79 78 Respiratory 14 14 15 Rate Blood Pressure 128/66 137/65 149/69 O2 Sat by Pulse 100 100 100 Oximetry 07/11/19 07/11/19 07/11/19 06:15 06:30 07:00 Temperature Pulse Rate 82 82 80 Respiratory 15 15 14 Rate Blood Pressure 148/71 148/70 152/72 O2 Sat by Pulse 99 98 99 Oximetry 07/11/19 07/11/19 07/11/19 07:15 07:30 07:45 Temperature Pulse Rate 80 82 80 Respiratory 13 13 14 Rate Blood Pressure 155/71 150/70 149/70 O2 Sat by Pulse 100 99 99 Oximetry 07/11/19 07/11/19 07/11/19 07:52 08:00 08:15 Temperature 99.7 F H Pulse Rate 82 81 83 Respiratory 12 15 Rate Blood Pressure 149/70 150/70 150/71 O2 Sat by Pulse 100 98 97 Oximetry 07/11/19 07/11/19 07/11/19 08:30 08:45 09:00 Temperature Pulse Rate 79 83 83 Respiratory 13 14 14 Rate Blood Pressure 152/70 151/71 158/73 O2 Sat by Pulse 98 98 97 Oximetry 07/11/19 07/11/19 07/11/19 09:15 09:30 09:45 Temperature Pulse Rate 81 82 83 Respiratory 14 14 13 Rate Blood Pressure 151/71 158/71 163/72 O2 Sat by Pulse 97 95 96 Oximetry 07/11/19 07/11/19 07/11/19 10:00 10:15 10:30 Temperature Pulse Rate 77 80 76 Respiratory 13 13 12 Rate Blood Pressure 161/71 161/71 159/67 O2 Sat by Pulse 98 100 97 Oximetry 07/11/19 07/11/19 07/11/19 10:45 11:00 11:15 Temperature Pulse Rate 74 72 73 Respiratory 12 12 12 Rate Blood Pressure 159/67 155/60 155/60 O2 Sat by Pulse 99 98 100 Oximetry 07/11/19 07/11/19 07/11/19 11:30 11:45 12:00 Temperature 99.8 F H Pulse Rate 78 76 75 Respiratory 12 12 12 Rate Blood Pressure 144/65 144/65 147/65 O2 Sat by Pulse 99 100 100 Oximetry 07/11/19 07/11/19 07/11/19 12:15 12:30 12:45 Temperature Pulse Rate 75 73 72 Respiratory 15 12 12 Rate Blood Pressure 147/65 152/64 152/64 O2 Sat by Pulse 100 99 100 Oximetry 07/11/19 07/11/19 07/11/19 13:00 13:15 13:30 Temperature Pulse Rate 72 71 72 Respiratory 14 13 12 Rate Blood Pressure 153/64 153/64 153/66 O2 Sat by Pulse 100 100 100 Oximetry 07/11/19 07/11/19 07/11/19 13:45 14:00 14:15 Temperature Pulse Rate 73 78 81 Respiratory 12 13 15 Rate Blood Pressure 153/66 151/67 151/67 O2 Sat by Pulse 100 98 100 Oximetry 07/11/19 07/11/19 07/11/19 14:30 14:45 15:00 Temperature Pulse Rate 79 73 80 Respiratory 17 12 15 Rate Blood Pressure 143/68 143/68 152/69 O2 Sat by Pulse 99 100 96 Oximetry 07/11/19 07/11/19 15:19 16:26 Temperature 99.8 F H Pulse Rate 80 Respiratory Rate Blood Pressure 155/70 O2 Sat by Pulse 100 Oximetry Constitutional: appears uncomfortable, other (middle aged thin female, normocephalic with mildly increased resp effort on MVS) Eyes: non-icteric ENT: oropharynx dry, other (ETT 23 cm JORY) Neck: supple, no lymphadenopathy, no JVD Effort: mildly labored Ascultation: Bilateral: diminished breath sounds, rhonchi Percussion: Bilateral: not dull Cardiovascular: regular rate and rhythm Gastrointestinal: normoactive bowel sounds, soft, non-tender, non-distended Integumentary: normal Extremities: no cyanosis, no edema, pink and warm, pulses normal Neurologic: unable to assess Psychiatric: other (unable to assess re: AMS) CBC and BMP: 07/12/19 05:43 07/12/19 05:43 ABG, PT/INR, D-dimer: ABG ABG pH 7.424 pH Units (7.350-7.450) 07/10/19 04:00 ABG pCO2 47.5 mm Hg 07/10/19 04:00 ABG pO2 77.3 mm Hg (80.0-90.0) L 07/10/19 04:00 ABG O2 Saturation 97.0 % (95.0-99.0) 07/10/19 04:00 Abnormal lab findings: Abnormal Labs 07/03/19 07/03/19 07/03/19 01:00 01:00 01:00 WBC 17.9 H RBC RDW 17.8 H Lymph % (Auto) 11.7 L [place] % (Auto) [place] # 1.0 H Seg Neutrophils % 82.1 H Seg Neuts % (Manual) Seg Neutrophils # 14.7 H Seg Neutrophils # Man Monocytes # (Manual) ABG pH ABG pO2 ABG HCO3 ABG O2 Saturation ABG Base Excess ABG Hemoglobin Oxyhemoglobin Sodium Chloride 92.9 L Carbon Dioxide BUN 45 H Creatinine 5.3 H Glucose 229 H POC Glucose Hemoglobin A1c Calcium 10.5 H Phosphorus NT-Pro-B Natriuret Pep > 14963 H Albumin 2.5 L 07/03/19 07/03/19 07/03/19 01:00 01:35 04:30 WBC RBC RDW Lymph % (Auto) [place] % (Auto) [place] # Seg Neutrophils % Seg Neuts % (Manual) Seg Neutrophils # Seg Neutrophils # Man Monocytes # (Manual) ABG pH 7.555 H 7.489 H ABG pO2 65.4 L 149.9 H ABG HCO3 28.9 H 27.9 H ABG O2 Saturation ABG Base Excess 6.7 H 4.5 H ABG Hemoglobin Oxyhemoglobin 94.0 L Sodium Chloride Carbon Dioxide BUN Creatinine Glucose POC Glucose Hemoglobin A1c 7.0 H Calcium Phosphorus NT-Pro-B Natriuret Pep Albumin 07/03/19 07/03/19 07/03/19 12:10 17:35 23:59 WBC RBC RDW Lymph % (Auto) [place] % (Auto) [place] # Seg Neutrophils % Seg Neuts % (Manual) Seg Neutrophils # Seg Neutrophils # Man Monocytes # (Manual) ABG pH ABG pO2 ABG HCO3 ABG O2 Saturation ABG Base Excess ABG Hemoglobin Oxyhemoglobin Sodium Chloride Carbon Dioxide BUN Creatinine Glucose POC Glucose 246 H 163 H 112 H Hemoglobin A1c Calcium Phosphorus NT-Pro-B Natriuret Pep Albumin 07/04/19 07/04/19 07/04/19 04:24 04:56 04:56 WBC 17.3 H RBC RDW 18.0 H Lymph % (Auto) 8.7 L [place] % (Auto) [place] # 0.9 H Seg Neutrophils % 85.1 H Seg Neuts % (Manual) Seg Neutrophils # 14.8 H Seg Neutrophils # Man Monocytes # (Manual) ABG pH 7.496 H ABG pO2 74.0 L ABG HCO3 28.1 H ABG O2 Saturation ABG Base Excess 4.7 H ABG Hemoglobin Oxyhemoglobin 93.9 L Sodium Chloride 95.5 L Carbon Dioxide BUN 26 H Creatinine 3.4 H Glucose 145 H POC Glucose Hemoglobin A1c Calcium Phosphorus NT-Pro-B Natriuret Pep Albumin 07/04/19 07/04/19 07/05/19 07:04 17:56 01:45 WBC RBC RDW Lymph % (Auto) [place] % (Auto) [place] # Seg Neutrophils % Seg Neuts % (Manual) Seg Neutrophils # Seg Neutrophils # Man Monocytes # (Manual) ABG pH ABG pO2 ABG HCO3 ABG O2 Saturation ABG Base Excess ABG Hemoglobin Oxyhemoglobin Sodium Chloride Carbon Dioxide BUN Creatinine Glucose POC Glucose 162 H 273 H 148 H Hemoglobin A1c Calcium Phosphorus NT-Pro-B Natriuret Pep Albumin 07/05/19 07/05/19 07/05/19 03:07 03:07 05:57 WBC 18.7 H RBC RDW 17.7 H Lymph % (Auto) 7.6 L [place] % (Auto) [place] # 1.2 H Seg Neutrophils % 84.2 H Seg Neuts % (Manual) Seg Neutrophils # 15.7 H Seg Neutrophils # Man Monocytes # (Manual) ABG pH ABG pO2 ABG HCO3 ABG O2 Saturation ABG Base Excess ABG Hemoglobin Oxyhemoglobin Sodium Chloride 94.7 L 95.6 L Carbon Dioxide 19 L BUN 23 H 26 H Creatinine 2.7 H 2.9 H Glucose 161 H 179 H POC Glucose Hemoglobin A1c Calcium 10.3 H 10.5 H Phosphorus 5.20 H D NT-Pro-B Natriuret Pep Albumin 07/05/19 07/05/19 07/05/19 06:50 07:52 09:06 WBC 16.8 H RBC RDW 18.1 H Lymph % (Auto) 8.0 L [place] % (Auto) [place] # 1.1 H Seg Neutrophils % 84.4 H Seg Neuts % (Manual) Seg Neutrophils # 14.2 H Seg Neutrophils # Man Monocytes # (Manual) ABG pH ABG pO2 ABG HCO3 ABG O2 Saturation ABG Base Excess ABG Hemoglobin 11.7 L Oxyhemoglobin 94.6 L Sodium Chloride Carbon Dioxide BUN Creatinine Glucose POC Glucose 195 H Hemoglobin A1c Calcium Phosphorus NT-Pro-B Natriuret Pep Albumin 07/05/19 07/05/19 07/06/19 12:26 17:53 01:03 WBC RBC RDW Lymph % (Auto) [place] % (Auto) [place] # Seg Neutrophils % Seg Neuts % (Manual) Seg Neutrophils # Seg Neutrophils # Man Monocytes # (Manual) ABG pH ABG pO2 ABG HCO3 ABG O2 Saturation ABG Base Excess ABG Hemoglobin Oxyhemoglobin Sodium Chloride Carbon Dioxide BUN Creatinine Glucose POC Glucose 222 H 214 H 217 H Hemoglobin A1c Calcium Phosphorus NT-Pro-B Natriuret Pep Albumin 07/06/19 07/06/19 07/06/19 03:45 04:37 04:37 WBC 15.7 H RBC RDW 17.9 H Lymph % (Auto) 9.3 L [place] % (Auto) 8.2 H [place] # 1.3 H Seg Neutrophils % 81.5 H Seg Neuts % (Manual) Seg Neutrophils # 12.8 H Seg Neutrophils # Man Monocytes # (Manual) ABG pH ABG pO2 67.1 L ABG HCO3 ABG O2 Saturation 93.3 L ABG Base Excess ABG Hemoglobin Oxyhemoglobin 91.2 L Sodium Chloride 97.5 L Carbon Dioxide 20 L BUN 50 H Creatinine 4.5 H D Glucose 192 H POC Glucose Hemoglobin A1c Calcium Phosphorus 5.80 H NT-Pro-B Natriuret Pep Albumin 07/06/19 07/06/19 07/06/19 06:10 13:47 18:40 WBC RBC RDW Lymph % (Auto) [place] % (Auto) [place] # Seg Neutrophils % Seg Neuts % (Manual) Seg Neutrophils # Seg Neutrophils # Man Monocytes # (Manual) ABG pH ABG pO2 ABG HCO3 ABG O2 Saturation ABG Base Excess ABG Hemoglobin Oxyhemoglobin Sodium Chloride Carbon Dioxide BUN Creatinine Glucose POC Glucose 214 H 233 H 225 H Hemoglobin A1c Calcium Phosphorus NT-Pro-B Natriuret Pep Albumin 07/07/19 07/07/19 07/07/19 00:11 04:30 05:33 WBC RBC RDW Lymph % (Auto) [place] % (Auto) [place] # Seg Neutrophils % Seg Neuts % (Manual) Seg Neutrophils # Seg Neutrophils # Man Monocytes # (Manual) ABG pH ABG pO2 113.7 H ABG HCO3 28.6 H ABG O2 Saturation ABG Base Excess 4.0 H ABG Hemoglobin 11.3 L Oxyhemoglobin Sodium Chloride Carbon Dioxide BUN Creatinine Glucose POC Glucose 288 H 204 H Hemoglobin A1c Calcium Phosphorus NT-Pro-B Natriuret Pep Albumin 07/07/19 07/07/19 07/07/19 05:38 05:38 11:39 WBC 15.0 H RBC RDW 18.3 H Lymph % (Auto) 10.9 L [place] % (Auto) 8.9 H [place] # 1.3 H Seg Neutrophils % 79.6 H Seg Neuts % (Manual) Seg Neutrophils # 11.9 H Seg Neutrophils # Man Monocytes # (Manual) ABG pH ABG pO2 ABG HCO3 ABG O2 Saturation ABG Base Excess ABG Hemoglobin Oxyhemoglobin Sodium Chloride 94.8 L Carbon Dioxide BUN 32 H Creatinine 2.8 H Glucose 236 H POC Glucose 309 H Hemoglobin A1c Calcium 10.6 H Phosphorus NT-Pro-B Natriuret Pep Albumin 07/07/19 07/07/19 07/08/19 18:09 23:30 03:49 WBC RBC RDW Lymph % (Auto) [place] % (Auto) [place] # Seg Neutrophils % Seg Neuts % (Manual) Seg Neutrophils # Seg Neutrophils # Man Monocytes # (Manual) ABG pH ABG pO2 116.2 H ABG HCO3 27.7 H ABG O2 Saturation ABG Base Excess ABG Hemoglobin 11.2 L Oxyhemoglobin Sodium Chloride Carbon Dioxide BUN Creatinine Glucose POC Glucose 280 H 398 H Hemoglobin A1c Calcium Phosphorus NT-Pro-B Natriuret Pep Albumin 07/08/19 07/08/19 07/08/19 04:38 04:38 05:37 WBC 13.5 H RBC RDW 18.3 H Lymph % (Auto) [place] % (Auto) 9.5 H [place] # 1.3 H Seg Neutrophils % 75.6 H Seg Neuts % (Manual) Seg Neutrophils # 10.2 H Seg Neutrophils # Man Monocytes # (Manual) ABG pH ABG pO2 ABG HCO3 ABG O2 Saturation ABG Base Excess ABG Hemoglobin Oxyhemoglobin Sodium Chloride 94.9 L Carbon Dioxide BUN 64 H Creatinine 4.2 H Glucose 288 H POC Glucose 270 H Hemoglobin A1c Calcium 10.9 H Phosphorus NT-Pro-B Natriuret Pep Albumin 07/08/19 07/08/19 07/08/19 11:47 17:36 23:23 WBC RBC RDW Lymph % (Auto) [place] % (Auto) [place] # Seg Neutrophils % Seg Neuts % (Manual) Seg Neutrophils # Seg Neutrophils # Man Monocytes # (Manual) ABG pH ABG pO2 ABG HCO3 ABG O2 Saturation ABG Base Excess ABG Hemoglobin Oxyhemoglobin Sodium Chloride Carbon Dioxide BUN Creatinine Glucose POC Glucose 211 H 259 H 276 H Hemoglobin A1c Calcium Phosphorus NT-Pro-B Natriuret Pep Albumin 07/09/19 07/09/19 07/09/19 04:08 04:29 04:29 WBC 12.8 H RBC RDW 17.7 H Lymph % (Auto) 12.5 L [place] % (Auto) 8.4 H [place] # 1.1 H Seg Neutrophils % 77.0 H Seg Neuts % (Manual) Seg Neutrophils # 9.9 H Seg Neutrophils # Man Monocytes # (Manual) ABG pH 7.471 H ABG pO2 141.8 H ABG HCO3 32.3 H ABG O2 Saturation ABG Base Excess 7.8 H ABG Hemoglobin 11.3 L Oxyhemoglobin Sodium Chloride 94.1 L Carbon Dioxide BUN 36 H Creatinine 2.6 H Glucose 217 H POC Glucose Hemoglobin A1c Calcium 11.0 H Phosphorus NT-Pro-B Natriuret Pep Albumin 07/09/19 07/09/19 07/09/19 05:25 10:46 13:07 WBC RBC RDW Lymph % (Auto) [place] % (Auto) [place] # Seg Neutrophils % Seg Neuts % (Manual) Seg Neutrophils # Seg Neutrophils # Man Monocytes # (Manual) ABG pH ABG pO2 113.2 H ABG HCO3 30.9 H ABG O2 Saturation ABG Base Excess 6.0 H ABG Hemoglobin 10.5 L Oxyhemoglobin Sodium Chloride Carbon Dioxide BUN Creatinine Glucose POC Glucose 190 H 315 H Hemoglobin A1c Calcium Phosphorus NT-Pro-B Natriuret Pep Albumin 07/09/19 07/09/19 07/10/19 17:59 23:18 04:00 WBC RBC RDW Lymph % (Auto) [place] % (Auto) [place] # Seg Neutrophils % Seg Neuts % (Manual) Seg Neutrophils # Seg Neutrophils # Man Monocytes # (Manual) ABG pH ABG pO2 77.3 L ABG HCO3 30.4 H ABG O2 Saturation ABG Base Excess 5.1 H ABG Hemoglobin Oxyhemoglobin Sodium Chloride Carbon Dioxide BUN Creatinine Glucose POC Glucose 204 H 199 H Hemoglobin A1c Calcium Phosphorus NT-Pro-B Natriuret Pep Albumin 07/10/19 07/10/19 07/10/19 04:55 04:55 05:39 WBC 23.9 H RBC RDW 18.1 H Lymph % (Auto) [place] % (Auto) [place] # Seg Neutrophils % Seg Neuts % (Manual) 81.0 H Seg Neutrophils # Seg Neutrophils # Man 19.4 H Monocytes # (Manual) 1.0 H ABG pH ABG pO2 ABG HCO3 ABG O2 Saturation ABG Base Excess ABG Hemoglobin Oxyhemoglobin Sodium 133 L Chloride 88.0 L Carbon Dioxide BUN 64 H Creatinine 3.7 H Glucose 250 H POC Glucose 288 H Hemoglobin A1c Calcium 11.1 H Phosphorus NT-Pro-B Natriuret Pep Albumin 07/10/19 07/10/19 07/10/19 12:02 18:32 23:37 WBC RBC RDW Lymph % (Auto) [place] % (Auto) [place] # Seg Neutrophils % Seg Neuts % (Manual) Seg Neutrophils # Seg Neutrophils # Man Monocytes # (Manual) ABG pH ABG pO2 ABG HCO3 ABG O2 Saturation ABG Base Excess ABG Hemoglobin Oxyhemoglobin Sodium Chloride Carbon Dioxide BUN Creatinine Glucose POC Glucose 204 H 288 H 189 H Hemoglobin A1c Calcium Phosphorus NT-Pro-B Natriuret Pep Albumin 07/11/19 07/11/19 07/11/19 05:31 06:10 06:10 WBC 16.6 H RBC 3.60 L RDW 16.8 H Lymph % (Auto) [place] % (Auto) [place] # Seg Neutrophils % Seg Neuts % (Manual) Seg Neutrophils # Seg Neutrophils # Man Monocytes # (Manual) ABG pH ABG pO2 ABG HCO3 ABG O2 Saturation ABG Base Excess ABG Hemoglobin Oxyhemoglobin Sodium 130 L Chloride 87.4 L Carbon Dioxide BUN 47 H Creatinine 2.4 H Glucose 138 H POC Glucose 135 H Hemoglobin A1c Calcium 10.8 H Phosphorus NT-Pro-B Natriuret Pep Albumin 07/11/19 12:28 WBC RBC RDW Lymph % (Auto) [place] % (Auto) [place] # Seg Neutrophils % Seg Neuts % (Manual) Seg Neutrophils # Seg Neutrophils # Man Monocytes # (Manual) ABG pH ABG pO2 ABG HCO3 ABG O2 Saturation ABG Base Excess ABG Hemoglobin Oxyhemoglobin Sodium Chloride Carbon Dioxide BUN Creatinine Glucose POC Glucose 243 H Hemoglobin A1c Calcium Phosphorus NT-Pro-B Natriuret Pep Albumin Chest x-ray: other (none today) Allied health notes reviewed: nursing
[2019-07-11] MEDS: METOCLOPRAMIDE 10 MG/2 ML INJ IV SCH (18:07)
[2019-07-12] MEDS: METOCLOPRAMIDE 10 MG/2 ML INJ IV SCH ×3 (01:26→17:00)
[2019-07-12] MEDS: INSULIN LISPRO 100 UNIT/ML SUB-Q SCH ×4 (01:27→18:00)
[2019-07-12 06:52] LABS: Hematocrit 31.9 % (30.3-42.9); Hemoglobin 10.6 gm/dl (10.1-14.3); Mean Corpuscular HGB Conc 33 % (30-34); Mean Corpuscular Volume 86 fl (79-97); Platelet Count 331 K/mm3 (140-440); Red Blood Count 3.72 M/mm3 (3.65-5.03); Red Cell Distribution Width 17.5 % (13.2-15.2)
[2019-07-12 07:11] LABS: Calcium 10.8 mg/dL (8.4-10.2)
--- NOTE | 2019-07-12 08:17 | Progress Note ---
Assessment and Plan Assessment and plan: Sepsis -CXR unremarkable -Leukocytosis present -Continue antibiotic, Merrem -Blood cultures negative x 72-hours Acute hypoxic respiratory failure -Continue mechanical ventilation per pulmonary.. Toxic metabolic encephalopathy -Neuro checks -Continue to treat underlying causes. ESRD on HD -M/W/F -Avoid nephrotoxic agents -Renal dose all meds -Nephrology following Congestive heart Failure -BNP >12852 on admission -Monitor input and output. -Cardiology following and reported no evidence of volume overload Hypertension -Continue to monitor BP Insulin-dependent diabetes -POC BG monitoring -SSI coverage prn Hx Seizure -Continue anticonvulsant meds -Seizure precautions. DVT PPX -On Heparin The high probability of a clinically significant, sudden or life threatening deterioration of the [respiratory] system(s) required my full and direct attention, intervention and personal management. The aggregate critical care time was [37] minutes. This time is in addition to time spent performing reported procedures but includes the following: [x] Data Review and interpretation [x] Patient assessment and monitoring of vital signs [x] Documentation [x] Medication orders and management History Interval history: Patient intubated, Fever on 07/08 No more fever Hospitalist Physical - Physical exam Narrative exam: GEN: Not in acute distress, intubated, on vent HEENT: Normocephalic, atraumatic, Neck: supple, No JVD Lungs: Bilateral rhonchi, heart;S1 and S2 reg, no murmurs Abd:soft, non tender, non distended, normal bowel sounds Ext: No edema, no clubbing, no cyanosis Neuro: Intubated, sedated - Constitutional Vitals: Temp Pulse Resp BP Pulse Ox 98.5 F 81 16 144/70 100 07/12/19 04:00 07/12/19 07:55 07/12/19 06:00 07/12/19 07:55 07/12/19 07:55 General appearance: Present: other (intubated on the vent) MATT score - Matt Score Age > 65: (0) No Aspirin use within the Past 7 Days: (0) No 3 or more CAD Risk Factors: (1) Yes 2 or more Angina events in past 24 hrs: (0) No Known CAD with more than 50% Stenosis: (0) No Elevated Cardiac Markers: (1) Yes ST Deviation Greater than 0.5mm: (0) No MATT Score: 2 Results - Labs CBC & Chem 7: 07/12/19 05:43 07/12/19 05:43 Labs: Laboratory Last Values WBC 15.0 K/mm3 (4.5-11.0) H 07/12/19 05:43 RBC 3.72 M/mm3 (3.65-5.03) 07/12/19 05:43 Hgb 10.6 gm/dl (10.1-14.3) 07/12/19 05:43 Hct 31.9 % (30.3-42.9) 07/12/19 05:43 MCV 86 fl (79-97) 07/12/19 05:43 MCH 29 pg (28-32) 07/12/19 05:43 MCHC 33 % (30-34) 07/12/19 05:43 RDW 17.5 % (13.2-15.2) H 07/12/19 05:43 Plt Count 331 K/mm3 (140-440) 07/12/19 05:43 Lymph % (Auto) Property Damage Claims Adjustor 07/10/19 04:55 [place] % (Auto) Property Damage Claims Adjustor 07/10/19 04:55 Eos % (Auto) Property Damage Claims Adjustor 07/10/19 04:55 Baso % (Auto) Property Damage Claims Adjustor 07/10/19 04:55 Lymph # Property Damage Claims Adjustor 07/10/19 04:55 [place] # Property Damage Claims Adjustor 07/10/19 04:55 Eos # Property Damage Claims Adjustor 07/10/19 04:55 Baso # Property Damage Claims Adjustor 07/10/19 04:55 Add Manual Diff Complete 07/10/19 04:55 Total Counted 100 07/10/19 04:55 Seg Neutrophils % Property Damage Claims Adjustor 07/10/19 04:55 Seg Neuts % (Manual) 81.0 % (40.0-70.0) H 07/10/19 04:55 Band Neutrophils % 0 % 07/10/19 04:55 Lymphocytes % (Manual) 14.0 % (13.4-35.0) 07/10/19 04:55 Reactive Lymphs % (Man) 0 % 07/10/19 04:55 Monocytes % (Manual) 4.0 % (0.0-7.3) 07/10/19 04:55 Eosinophils % (Manual) 0 % (0.0-4.3) 07/10/19 04:55 Basophils % (Manual) 0 % (0.0-1.8) 07/10/19 04:55 Metamyelocytes % 1.0 % 07/10/19 04:55 Myelocytes % 0 % 07/10/19 04:55 Promyelocytes % 0 % 07/10/19 04:55 Blast Cells % 0 % 07/10/19 04:55 Nucleated RBC % Not Reportable 07/10/19 04:55 Seg Neutrophils # Property Damage Claims Adjustor 07/10/19 04:55 Seg Neutrophils # Man 19.4 K/mm3 (1.8-7.7) H 07/10/19 04:55 Band Neutrophils # 0.0 K/mm3 07/10/19 04:55 Lymphocytes # (Manual) 3.3 K/mm3 (1.2-5.4) 07/10/19 04:55 Abs React Lymphs (Man) 0.0 K/mm3 07/10/19 04:55 Monocytes # (Manual) 1.0 K/mm3 (0.0-0.8) H 07/10/19 04:55 Eosinophils # (Manual) 0.0 K/mm3 (0.0-0.4) 07/10/19 04:55 Basophils # (Manual) 0.0 K/mm3 (0.0-0.1) 07/10/19 04:55 Metamyelocytes # 0.2 K/mm3 07/10/19 04:55 Myelocytes # 0.0 K/mm3 07/10/19 04:55 Promyelocytes # 0.0 K/mm3 07/10/19 04:55 Blast Cells # 0.0 K/mm3 07/10/19 04:55 WBC Morphology Not Reportable 07/10/19 04:55 Hypersegmented Neuts Not Reportable 07/10/19 04:55 Hyposegmented Neuts Not Reportable 07/10/19 04:55 Hypogranular Neuts Not Reportable 07/10/19 04:55 Smudge Cells Not Reportable 07/10/19 04:55 Toxic Granulation Not Reportable 07/10/19 04:55 Toxic Vacuolation Not Reportable 07/10/19 04:55 Dohle Bodies Not Reportable 07/10/19 04:55 Pelger-Huet Anomaly Not Reportable 07/10/19 04:55 Andrei Rods Not Reportable 07/10/19 04:55 Platelet Estimate Consistent w auto 07/10/19 04:55 Clumped Platelets Not Reportable 07/10/19 04:55 Plt Clumps, EDTA Not Reportable 07/10/19 04:55 Large Platelets Not Reportable 07/10/19 04:55 Giant Platelets Not Reportable 07/10/19 04:55 Platelet Satelliting Not Reportable 07/10/19 04:55 Plt Morphology Comment Not Reportable 07/10/19 04:55 RBC Morphology Not Reportable 07/10/19 04:55 Dimorphic RBCs Not Reportable 07/10/19 04:55 Polychromasia Not Reportable 07/10/19 04:55 Hypochromasia Not Reportable 07/10/19 04:55 Poikilocytosis Not Reportable 07/10/19 04:55 Anisocytosis Not Reportable 07/10/19 04:55 Microcytosis Not Reportable 07/10/19 04:55 Macrocytosis Not Reportable 07/10/19 04:55 Spherocytes Not Reportable 07/10/19 04:55 Pappenheimer Bodies Not Reportable 07/10/19 04:55 Sickle Cells Not Reportable 07/10/19 04:55 Target Cells Not Reportable 07/10/19 04:55 Tear Drop Cells Not Reportable 07/10/19 04:55 Ovalocytes Not Reportable 07/10/19 04:55 Helmet Cells Not Reportable 07/10/19 04:55 [place] Bodies Not Reportable 07/10/19 04:55 [place] Rings Not Reportable 07/10/19 04:55 [place] Cells Not Reportable 07/10/19 04:55 Bite Cells Not Reportable 07/10/19 04:55 Crenated Cell Not Reportable 07/10/19 04:55 Elliptocytes Not Reportable 07/10/19 04:55 Acanthocytes (Spur) Not Reportable 07/10/19 04:55 Rouleaux Not Reportable 07/10/19 04:55 Hemoglobin C Crystals Not Reportable 07/10/19 04:55 Schistocytes Rare 07/10/19 04:55 Malaria parasites Not Reportable 07/10/19 04:55 Tristen Bodies Not Reportable 07/10/19 04:55 Hem Pathologist Commnt No 07/10/19 04:55 ABG pH 7.424 pH Units (7.350-7.450) 07/10/19 04:00 ABG pCO2 47.5 mm Hg 07/10/19 04:00 ABG pO2 77.3 mm Hg (80.0-90.0) L 07/10/19 04:00 ABG HCO3 30.4 mmol/L (20.0-26.0) H 07/10/19 04:00 ABG O2 Saturation 97.0 % (95.0-99.0) 07/10/19 04:00 ABG O2 Content 18.9 (0.0-44) 07/10/19 04:00 ABG Base Excess 5.1 mmol/L (-2.0-3.0) H 07/10/19 04:00 ABG Hemoglobin 14.1 gm/dl (12.0-16.0) 07/10/19 04:00 ABG Carboxyhemoglobin 1.7 % (0.0-5.0) 07/10/19 04:00 ABG Methemoglobin 0.3 % (0.0-1.5) 07/10/19 04:00 Oxyhemoglobin 95.1 % (95.0-99.0) 07/10/19 04:00 FiO2 30 % 07/10/19 04:00 Sodium 128 mmol/L (137-145) L 07/12/19 05:43 Potassium 4.6 mmol/L (3.6-5.0) 07/12/19 05:43 Chloride 85.7 mmol/L (98-107) L 07/12/19 05:43 Carbon Dioxide 24 mmol/L (22-30) 07/12/19 05:43 Anion Gap 23 mmol/L 07/12/19 05:43 BUN 76 mg/dL (7-17) H 07/12/19 05:43 Creatinine 3.8 mg/dL (0.7-1.2) H D 07/12/19 05:43 Estimated GFR 12 ml/min 07/12/19 05:43 BUN/Creatinine Ratio 20 % 07/12/19 05:43 Glucose 157 mg/dL (65-100) H 07/12/19 05:43 POC Glucose 156 (70-105) H 07/12/19 05:27 Hemoglobin A1c 7.0 % (4-6) H 07/03/19 01:00 Lactic Acid 1.20 mmol/L (0.7-2.0) 07/03/19 04:13 Calcium 10.8 mg/dL (8.4-10.2) H 07/12/19 05:43 Phosphorus 2.60 mg/dL (2.5-4.5) D 07/09/19 04:29 Total Bilirubin 0.30 mg/dL (0.1-1.2) 07/03/19 01:00 AST 22 units/L (5-40) 07/03/19 01:00 ALT 9 units/L (7-56) 07/03/19 01:00 Alkaline Phosphatase 101 units/L (35-129) 07/03/19 01:00 Ammonia 35.0 umol/L (25-60) 07/03/19 01:58 NT-Pro-B Natriuret Pep > 91205 pg/mL (0-900) H 07/03/19 01:00 Total Protein 7.0 g/dL (6.3-8.2) 07/03/19 01:00 Albumin 2.5 g/dL (3.9-5) L 07/03/19 01:00 Albumin/Globulin Ratio 0.6 % 07/03/19 01:00 TSH 2.600 mlU/mL (0.270-4.200) 07/03/19 01:00 Urine Color Yellow (Yellow) 07/03/19 Unknown Urine Turbidity Clear (Clear) 07/03/19 Unknown Urine pH 6.0 (5.0-7.0) 07/03/19 Unknown Ur Specific [place] 1.012 (1.003-1.030) 07/03/19 Unknown Urine Protein >500 mg/dL (Negative) 07/03/19 Unknown Urine Glucose (UA) >=500 mg/dL (Negative) 07/03/19 Unknown Urine Ketones Neg mg/dL (Negative) 07/03/19 Unknown Urine Blood Neg (Negative) 07/03/19 Unknown Urine Nitrite Neg (Negative) 07/03/19 Unknown Ur Reducing Substances Not Reportable 07/03/19 Unknown Urine Bilirubin Neg (Negative) 07/03/19 Unknown Urine Ictotest Not Reportable 07/03/19 Unknown Urine Urobilinogen < 2.0 mg/dL (<2.0) 07/03/19 Unknown Ur Leukocyte Esterase Neg (Negative) 07/03/19 Unknown Urine WBC (Auto) 1.0 /HPF (0.0-6.0) 07/03/19 Unknown Urine RBC (Auto) 2.0 /HPF (0.0-6.0) 07/03/19 Unknown U Epithel Cells (Auto) < 1.0 /HPF (0-13.0) 07/03/19 Unknown Urine Mucus Few /HPF 07/03/19 Unknown Random Vancomycin 18.7 ug/mL (0-40.0) 07/08/19 04:38 Influenza A (Rapid) Negative (Negative) 07/05/19 14:30 Influenza B (Rapid) Negative (Negative) 07/05/19 14:30 Active Medications - Current Medications Current Medications: Generic Name Dose Route Start Last Admin Trade Name Freq PRN Reason Stop Dose Admin Acetaminophen 650 mg 07/08/19 10:00 Tylenol SC Q4H PRN Pain, Mild (1-3) Albumin Human 25 gm 07/06/19 13:42 07/08/19 11:59 Alburx 25% (Albumin) IV 25 gm FEDE PRN Administration Hypotension Lipase/Protease/Amylase 1 each 07/05/19 16:[address] 10,500 Unit FEEDTUBE PRN PRN For Clogged Feeding Tube Dextrose 0 ml 07/03/19 04:34 D50w (25gm) Syringe IV Q30MIN PRN Hypoglycemia Protocol Famotidine 20 mg 07/07/19 10:00 07/11/19 10:07 Pepcid PO 20 mg DAILY YANG Administration Heparin Sodium (Porcine) 5,000 unit 07/03/19 10:00 07/11/19 22:10 Heparin SUB-Q 5,000 unit Q12HR YANG Administration Hydrophilic Ointment 1 applic 07/03/19 00:53 Vaseline Lip Therapy TP Q2HR PRN Dry Lips Fentanyl Citrate 2,000 mcg in 100 mls @ 2.608 mls/hr 07/03/19 01:00 07/04/19 18:10 Fentanyl Drip Premix IV Infused TITR YANG Titration Protocol 1 MCG/KG/HR Sodium Chloride 100 mls @ 999 mls/hr 07/05/19 13:41 Nacl 0.9% IV FEDE PRN Hypotension Meropenem 500 mg in 50 mls @ 50 mls/hr 07/07/19 14:00 07/11/19 22:10 Merrem/Ns 500 Mg/50 Ml IV 50 mls/hr Q12HR YANG Administration Insulin Glargine 18 units 07/10/19 13:43 07/11/19 10:08 Lantus SUB-Q 18 units DAILY YANG Administration Insulin Human Lispro 0 unit 07/03/19 06:00 07/12/19 06:09 Humalog SUB-Q 3 unit Q6HR YANG Administration Protocol Metoclopramide HCl 5 mg 07/11/19 17:00 07/12/19 01:26 Reglan IV 5 mg Q8H YANG Administration Multi-Ingred Cream/Lotion/Oil/Oint 1 applic 07/03/19 00:53 Artificial Tears Ophth Oint OU Q4HR PRN Dry Eye(s) Simple Syrup 15 ml 07/05/19 16:27 Simple Syrup FEEDTUBE PRN PRN Hypoglycemia Simple Syrup 30 ml 07/05/19 16:27 Simple Syrup FEEDTUBE PRN PRN Hypoglycemia Sodium Bicarbonate 325 mg 07/05/19 16:27 Sodium Bicarbonate FEEDTUBE PRN PRN For Clogged Feeding Tube Sodium Chloride 10 ml 07/03/19 10:00 07/11/19 22:10 Sodium Chloride Flush Syringe 10 Ml IV 10 ml BID YANG Administration Sodium Chloride 10 ml 07/03/19 04:34 07/05/19 10:42 Sodium Chloride Flush Syringe 10 Ml IV 10 ml PRN PRN Administration LINE FLUSH Nutrition/Malnutrition Assess - Dietary Evaluation Nutrition/Malnutrition Findings: Nutrition Notes Start: 07/06/19 08:50 Freq: Status: Active Protocol: Document 07/09/19 10:48 CW (Rec: 07/09/19 11:02 CW [id number]) Co-Sign 07/09/19 10:48 LP Nutrition Notes Initial or Follow up Reassessment Current Diagnosis CKD (stage V CKD),Decubitus( Pressure Ulcer),Diabetes,Heart Failure,Respiratory Failure Other Pertinent Diagnosis on HD, Sacral PU, seizures, bipolar disorder, metabolic encephalopathy Current Diet Nepro 1.8 at 35 ml/hr Labs/Tests BG 190 07/03: HA1C 7 Pertinent Medications Humalog Lantus Height 5 ft 2 in Weight 48.2 kg [place] Body Weight (kg) 50.00 BMI 19.4 Weight change and time frame 2% wt loss noted likely D/T to fluid loss Weight Status Appropriate Subjective/Other Information F/U for TF tolerance and stable wt. Nepro 1.8 currently running at goal rate. TF stopped for 2 hours D/T residuals of 300 mL. TF has since been restarted and is running at goal. Wt is stablizing at approxiamtely 48 kg. Percent of energy/protein needs met: 100%/100% Burn Absent Trauma Absent GI Symptoms None Current % PO Negligible Minimum of two criteria No physical signs of malnutrition #2 Nutrition Diagnosis Increased nutrient needs ( specify in comment below) Comments: Protein Diagnosis Progress(for reassessment Continues documentation) #1 Nutrition Diagnosis Inadequate oral intake Diagnosis Progress(for reassessment Continues documentation) Is patient on ventilator? Yes Is Patient Ambulatory and/or Out of Bed No REE-([place]-St. Jeor-confined to bed) 1223.292 Kcal/Kg value to use for calculation 31 Approximate Energy Requirements Using 1494 kcal/Kg Calculation Used for Recommendations [facility] Additional Notes Protein: 58 -96g (1.2-2g/kg) Fluid: 1-1.5 L/ day Nutrition Intervention Change Diet Order: TF Nutrition Support: Nepro 1.8 at 35ml/hr Flush 150 ml q4h Kcal 1,512 Protein (gm) 68 Fluid (mL) 611 Goal #1 TF tolerance Goal #2 Wound healing Anticipated Discharge Needs: unable to determine at this time Follow-Up By: 07/14/19 Additional Comments F/U for TF tolerance and stable wt.
[2019-07-12] MEDS: FAMOTIDINE 20 MG TAB PO SCH (10:09)
[2019-07-12] MEDS: HEPARIN 5,000 UNIT/1 ML VIAL SUB-Q SCH ×2 (10:09→22:03)
[2019-07-12] MEDS: INSULIN GLARGINE 100 UNITS/ML SUB-Q SCH (10:11)
[2019-07-12] MEDS: MEROPENEM/NS 500 MG/50 ML 500 MG/50 ML BAG IV SCH ×2 (10:11→22:03)
--- NOTE | 2019-07-12 14:25 | Progress Note ---
Assessment and Plan Acute hypoxic respiratory failure on mechanical ventilation Acute metabolic encephalopathy ESRD on HD HTN Sepsis Hx of seizures DM Type 2 on insulin Hypercalemia Plan: - No acute indication for HD today - HD tomorrow for UF and clearance - PRN albumin for intradialytic hypotension - Assess dialysis needs daily - Epogen dosing for anemia management as needed - ID on board, on Abx, follow cultures - Currently Intubated on Vent - as per Pulmonology - Strict I&O - Renally dose meds - This pt undergoes outpatient HD at [facility] every MWF - Renal plan d/w Dr Wray Subjective Date of service: 07/12/19 Principal diagnosis: Acute hypoxemic resp failure; AMS; Severe Sepsis; ESRD; CHF; HTN; Seizure Interval history: Pt seen in ICU, intubated, arouses to verbal stimuli, no family at bedside Objective - Vital Signs Vital signs: Vital Signs - 12hr 07/12/19 07/12/19 07/12/19 02:30 03:00 03:30 Temperature Pulse Rate 80 83 80 Pulse Rate [ From Monitor] Respiratory 17 15 15 Rate Blood Pressure 153/70 156/67 147/70 O2 Sat by Pulse 99 95 99 Oximetry 07/12/19 07/12/19 07/12/19 04:00 04:30 04:56 Temperature 98.5 F Pulse Rate 80 74 74 Pulse Rate [ From Monitor] Respiratory 16 13 Rate Blood Pressure 153/70 152/74 152/74 O2 Sat by Pulse 98 100 100 Oximetry 07/12/19 07/12/19 07/12/19 05:00 05:30 06:00 Temperature Pulse Rate 71 75 77 Pulse Rate [ From Monitor] Respiratory 13 15 16 Rate Blood Pressure 160/72 154/73 157/77 O2 Sat by Pulse 100 100 100 Oximetry 07/12/19 07/12/19 07/12/19 06:30 07:00 07:30 Temperature Pulse Rate 78 74 74 Pulse Rate [ From Monitor] Respiratory 12 14 14 Rate Blood Pressure 158/71 148/67 148/67 O2 Sat by Pulse 97 99 99 Oximetry 07/12/19 07/12/19 07/12/19 07:55 08:00 08:30 Temperature 98.4 F Pulse Rate 81 80 77 Pulse Rate [ From Monitor] Respiratory 19 18 Rate Blood Pressure 144/70 144/70 143/68 O2 Sat by Pulse 100 98 99 Oximetry 07/12/19 07/12/19 07/12/19 09:00 09:30 10:00 Temperature Pulse Rate 78 77 76 Pulse Rate [ From Monitor] Respiratory 17 14 13 Rate Blood Pressure 153/70 148/70 156/72 O2 Sat by Pulse 97 99 98 Oximetry 07/12/19 07/12/19 07/12/19 10:17 10:30 11:00 Temperature 98.4 F Pulse Rate 77 81 Pulse Rate [ From Monitor] Respiratory 13 19 Rate Blood Pressure 159/75 170/80 O2 Sat by Pulse 99 97 Oximetry 07/12/19 07/12/19 07/12/19 11:30 11:54 12:00 Temperature 98.9 F Pulse Rate 76 82 80 Pulse Rate [ 77 From Monitor] Respiratory 12 15 Rate Blood Pressure 154/72 159/75 136/70 O2 Sat by Pulse 97 100 99 Oximetry 07/12/19 07/12/19 12:30 13:00 Temperature Pulse Rate 83 82 Pulse Rate [ From Monitor] Respiratory 16 14 Rate Blood Pressure 140/70 139/68 O2 Sat by Pulse 98 97 Oximetry - General Appearance General appearance: intubated EENT: ATNC Neck: no JVD Respiratory: Present: Decreased Breath Sounds (intubated ) Cardiology: regular, S1S2, other (ACCESS: Left AVF + thrill and bruit noted) Gastrointestinal: normoactive bowel sounds (orogastric tube intact) Integumentary: warm and dry Neurologic: other (intubated, arouses to verbal stimuli, + bilateral hand grasp and moves BLE) Musculoskeletal: other (no edema to BLE) - Lab 07/12/19 05:43 07/12/19 05:43 Most recent lab results ABG pH 7.424 pH Units (7.350-7.450) 07/10/19 04:00 ABG pCO2 47.5 mm Hg 07/10/19 04:00 ABG pO2 77.3 mm Hg (80.0-90.0) L 07/10/19 04:00 ABG HCO3 30.4 mmol/L (20.0-26.0) H 07/10/19 04:00 ABG O2 Saturation 97.0 % (95.0-99.0) 07/10/19 04:00 Calcium 10.8 mg/dL (8.4-10.2) H 07/12/19 05:43 Phosphorus 2.60 mg/dL (2.5-4.5) D 07/09/19 04:29 Medications & Allergies - Medications Allergies/Adverse Reactions: Allergies No Known Allergies Allergy (Verified 07/03/19 10:58) Home Medications: Home Medications Medication Instructions Recorded Confirmed Last Taken Type Amlodipine Besylate [Norvasc] 10 mg PO DAILY 06/24/19 07/04/19 Unknown History AtorvaSTATin [Lipitor] 20 mg PO QHS 06/24/19 07/04/19 Unknown History Bumetanide 1 mg PO DAILY 06/24/19 07/04/19 Unknown History Cinacalcet HCl 30 mg PO DAILY 06/24/19 07/04/19 Unknown History Divalproex Sodium [Depakote 500 mg PO BID 06/24/19 07/04/19 Unknown History Sprinkle] Lispro Insulin [HumaLOG] 0 - 200 unit SQ ACHS 06/24/19 07/04/19 Unknown History Vit B Comp No.3/Folic/C/Biotin 1 each PO DAILY 06/24/19 07/04/19 Unknown History [Nephro-Umu Rx Tablet] carvediloL [Coreg] 25 mg PO BID 06/24/19 07/04/19 Unknown History hydrALAZINE [Apresoline TAB] 50 mg PO Q8HR 06/24/19 07/04/19 Unknown History ALBUTEROL NEB's [Proventil 0.083% 2.5 mg IH TIDRT #30 nebu 06/30/19 07/04/19 Unknown Rx NEBS] Lactulose [Cephulac] 20 gm PO Q8HR oral.liqd 06/30/19 07/04/19 Unknown Rx Sevelamer Carbonate [Renvela] 800 mg PO TIDWM tablet 06/30/19 07/04/19 Unknown Rx risperiDONE [RisperDAL] 0.5 mg PO BID tablet 06/30/19 07/04/19 Unknown Rx Active Medications: Generic Name Dose Route Start Last Admin Trade Name Freq PRN Reason Stop Dose Admin Acetaminophen 650 mg 07/08/19 10:00 Tylenol MA Q4H PRN Pain, Mild (1-3) Albumin Human 25 gm 07/06/19 13:42 07/08/19 11:59 Alburx 25% (Albumin) IV 25 gm FEDE PRN Administration Hypotension Lipase/Protease/Amylase 1 each 07/05/19 16:[address] 10,500 Unit FEEDTUBE PRN PRN For Clogged Feeding Tube Dextrose 0 ml 07/03/19 04:34 D50w (25gm) Syringe IV Q30MIN PRN Hypoglycemia Protocol Famotidine 20 mg 07/07/19 10:00 07/12/19 10:09 Pepcid PO 20 mg DAILY YANG Administration Heparin Sodium (Porcine) 5,000 unit 07/03/19 10:00 07/12/19 10:09 Heparin SUB-Q 5,000 unit Q12HR YANG Administration Hydrophilic Ointment 1 applic 07/03/19 00:53 Vaseline Lip Therapy TP Q2HR PRN Dry Lips Fentanyl Citrate 2,000 mcg in 100 mls @ 2.608 mls/hr 07/03/19 01:00 07/04/19 18:10 Fentanyl Drip Premix IV Infused TITR YANG Titration Protocol 1 MCG/KG/HR Sodium Chloride 100 mls @ 999 mls/hr 07/05/19 13:41 Nacl 0.9% IV FEDE PRN Hypotension Meropenem 500 mg in 50 mls @ 50 mls/hr 07/07/19 14:00 07/12/19 11:15 Merrem/Ns 500 Mg/50 Ml IV Infused Q12HR YANG Infusion Insulin Glargine 18 units 07/10/19 13:43 07/12/19 10:11 Lantus SUB-Q 18 units DAILY YANG Administration Insulin Human Lispro 0 unit 07/03/19 06:00 07/12/19 11:59 Humalog SUB-Q 3 unit Q6HR YANG Administration Protocol Metoclopramide HCl 5 mg 07/11/19 17:00 07/12/19 09:00 Reglan IV 5 mg Q8H YANG Administration Multi-Ingred Cream/Lotion/Oil/Oint 1 applic 07/03/19 00:53 Artificial Tears Ophth Oint OU Q4HR PRN Dry Eye(s) Simple Syrup 15 ml 07/05/19 16:27 Simple Syrup FEEDTUBE PRN PRN Hypoglycemia Simple Syrup 30 ml 07/05/19 16:27 Simple Syrup FEEDTUBE PRN PRN Hypoglycemia Sodium Bicarbonate 325 mg 07/05/19 16:27 Sodium Bicarbonate FEEDTUBE PRN PRN For Clogged Feeding Tube Sodium Chloride 10 ml 07/03/19 10:00 07/12/19 10:12 Sodium Chloride Flush Syringe 10 Ml IV 10 ml BID YANG Administration Sodium Chloride 10 ml 07/03/19 04:34 07/05/19 10:42 Sodium Chloride Flush Syringe 10 Ml IV 10 ml PRN PRN Administration LINE FLUSH
--- NOTE | 2019-07-12 15:56 | Progress Note ---
Assessment and Plan Acute hypoxemic respiratory failure Toxic metabolic encephalopathy Severe Sepsis ESRD on HD Congestive heart Failure Accelerated Hypertension H/O Seizure (AMS is a rate limiting step to extubation at this point but still not meeting other criteria also) - continue Daily SAT's and SBT assessment as tolerated - sedation target is RASS 0 to -1 - VAP bundle addressed (aspiration precautions, HOB>40 degrees) - continue lung protective strategies - continue to wean FiO2 for O2 sats >90% - continue bronchodilators with pulmonary hygiene per RT - continue Reglan re: episode of high resuiduals and tube feeds being held - continue Lantus - continue prn albuterol nebs - continue enteral nutrition at goal rate as tolerated - AED's per neurology recommendations - continue HD/UF per nephrology rec's for toxin and volume clearance - continue Empiric antibiotics therapies (de-escalate based on cultures and clinical condition) - ID evaluation ongoing - VTE prophylaxis with heparin SQ - continue stress ulcer prophylaxis with Famotidine - accuchecks with glycemic control for SSI (While critically ill target blood glucose of 140-180 mg/dL; avoid hypoglycemia) - mobility protocols for pressure ulcer prevention - Monitor hemodynamics closely - Fluid restrictive strategies as tolerated by hemodynamics and by her renal function (patient has a history of cardiomyopathy and has elevated BNP at this time) - continue to avoid nephrotoxins, dose all medications fro CrCL and GFR - Monitor electrolyte profile closely and replete as indicated - Chronic home medications, resume as clinically indicated - continue other care per attending / other consultants ... re-evaluate in am & prn CONDITION: CRITICAL PROGNOSIS: GUARDED CODE STATUS: FULL CODE The high probability of a clinically significant, sudden or life-threatening deterioration of the [respiratory, cardiovascular, neurology, renal] system(s) required my full and direct attention, intervention and personal management. The aggregate critical care time was [35] minutes without overlap. Time includes spent on; [x] Data Review and interpretation [x] Patient assessment and monitoring of vital signs [x] Documentation [x] Medication orders and management Subjective Date of service: 07/12/19 Principal diagnosis: Acute hypoxemic resp failure; AMS; Severe Sepsis; ESRD; CHF; HTN; Seizure Interval history: Patient is seen today for: Acute hypoxemic respiratory failure; Toxic metabolic encephalopathy; Severe Sepsis; ESRD on HD; CHF; Accelerated Hypertension; H/O Seizure Seen and examined at bedside; 24hour events reviewed; nursing and respiratory care staff consulted; no adverse overnight events reported to me; resting peacefully in bed; just placed on PSV and tolerating well so far; arousable and attempts to follow some simple commands but fleeting attention span. Objective Vital Signs - 12hr 07/12/19 07/12/19 07/12/19 04:00 04:30 04:56 Temperature 98.5 F Pulse Rate 80 74 74 Pulse Rate [ From Monitor] Respiratory 16 13 Rate Blood Pressure 153/70 152/74 152/74 O2 Sat by Pulse 98 100 100 Oximetry 07/12/19 07/12/19 07/12/19 05:00 05:30 06:00 Temperature Pulse Rate 71 75 77 Pulse Rate [ From Monitor] Respiratory 13 15 16 Rate Blood Pressure 160/72 154/73 157/77 O2 Sat by Pulse 100 100 100 Oximetry 07/12/19 07/12/19 07/12/19 06:30 07:00 07:30 Temperature Pulse Rate 78 74 74 Pulse Rate [ From Monitor] Respiratory 12 14 14 Rate Blood Pressure 158/71 148/67 148/67 O2 Sat by Pulse 97 99 99 Oximetry 07/12/19 07/12/19 07/12/19 07:55 08:00 08:30 Temperature 98.4 F Pulse Rate 81 80 77 Pulse Rate [ From Monitor] Respiratory 19 18 Rate Blood Pressure 144/70 144/70 143/68 O2 Sat by Pulse 100 98 99 Oximetry 07/12/19 07/12/19 07/12/19 09:00 09:30 10:00 Temperature Pulse Rate 78 77 76 Pulse Rate [ From Monitor] Respiratory 17 14 13 Rate Blood Pressure 153/70 148/70 156/72 O2 Sat by Pulse 97 99 98 Oximetry 07/12/19 07/12/19 07/12/19 10:17 10:30 11:00 Temperature 98.4 F Pulse Rate 77 81 Pulse Rate [ From Monitor] Respiratory 13 19 Rate Blood Pressure 159/75 170/80 O2 Sat by Pulse 99 97 Oximetry 07/12/19 07/12/19 07/12/19 11:30 11:54 12:00 Temperature 98.9 F Pulse Rate 76 82 80 Pulse Rate [ 77 From Monitor] Respiratory 12 15 Rate Blood Pressure 154/72 159/75 136/70 O2 Sat by Pulse 97 100 99 Oximetry 07/12/19 07/12/1920 12:30 13:00 13:30 Temperature Pulse Rate 83 82 78 Pulse Rate [ From Monitor] Respiratory 16 14 14 Rate Blood Pressure 140/70 139/68 128/66 O2 Sat by Pulse 98 97 98 Oximetry 07/12/19 07/12/19 07/12/19 14:00 14:30 15:00 Temperature Pulse Rate 79 74 80 Pulse Rate [ From Monitor] Respiratory 16 13 22 Rate Blood Pressure 131/68 126/66 137/71 O2 Sat by Pulse 99 98 99 Oximetry Constitutional: appears uncomfortable, other (middle aged thin female, normocephalic with mildly increased resp effort on MVS) Eyes: non-icteric ENT: oropharynx dry, other (ETT 23 cm JORY) Neck: supple, no lymphadenopathy, no JVD Effort: mildly labored Ascultation: Bilateral: diminished breath sounds, rhonchi Percussion: Bilateral: not dull Cardiovascular: regular rate and rhythm Gastrointestinal: normoactive bowel sounds, soft, non-tender, non-distended Integumentary: normal Extremities: no cyanosis, no edema, pink and warm, pulses normal Neurologic: unable to assess Psychiatric: other (unable to assess re: AMS) CBC and BMP: 07/13/19 07:50 07/13/19 07:50 ABG, PT/INR, D-dimer: ABG ABG pH 7.424 pH Units (7.350-7.450) 07/10/19 04:00 ABG pCO2 47.5 mm Hg 07/10/19 04:00 ABG pO2 77.3 mm Hg (80.0-90.0) L 07/10/19 04:00 ABG O2 Saturation 97.0 % (95.0-99.0) 07/10/19 04:00 Abnormal lab findings: Abnormal Labs 07/03/19 07/03/19 07/03/19 01:00 01:00 01:00 WBC 17.9 H RBC RDW 17.8 H Lymph % (Auto) 11.7 L [place] % (Auto) [place] # 1.0 H Seg Neutrophils % 82.1 H Seg Neuts % (Manual) Seg Neutrophils # 14.7 H Seg Neutrophils # Man Monocytes # (Manual) ABG pH ABG pO2 ABG HCO3 ABG O2 Saturation ABG Base Excess ABG Hemoglobin Oxyhemoglobin Sodium Chloride 92.9 L Carbon Dioxide BUN 45 H Creatinine 5.3 H Glucose 229 H POC Glucose Hemoglobin A1c Calcium 10.5 H Phosphorus NT-Pro-B Natriuret Pep > 26827 H Albumin 2.5 L 07/03/19 07/03/19 07/03/19 01:00 01:35 04:30 WBC RBC RDW Lymph % (Auto) [place] % (Auto) [place] # Seg Neutrophils % Seg Neuts % (Manual) Seg Neutrophils # Seg Neutrophils # Man Monocytes # (Manual) ABG pH 7.555 H 7.489 H ABG pO2 65.4 L 149.9 H ABG HCO3 28.9 H 27.9 H ABG O2 Saturation ABG Base Excess 6.7 H 4.5 H ABG Hemoglobin Oxyhemoglobin 94.0 L Sodium Chloride Carbon Dioxide BUN Creatinine Glucose POC Glucose Hemoglobin A1c 7.0 H Calcium Phosphorus NT-Pro-B Natriuret Pep Albumin 07/03/19 07/03/19 07/03/19 12:10 17:35 23:59 WBC RBC RDW Lymph % (Auto) [place] % (Auto) [place] # Seg Neutrophils % Seg Neuts % (Manual) Seg Neutrophils # Seg Neutrophils # Man Monocytes # (Manual) ABG pH ABG pO2 ABG HCO3 ABG O2 Saturation ABG Base Excess ABG Hemoglobin Oxyhemoglobin Sodium Chloride Carbon Dioxide BUN Creatinine Glucose POC Glucose 246 H 163 H 112 H Hemoglobin A1c Calcium Phosphorus NT-Pro-B Natriuret Pep Albumin 07/04/19 07/04/19 07/04/19 04:24 04:56 04:56 WBC 17.3 H RBC RDW 18.0 H Lymph % (Auto) 8.7 L [place] % (Auto) [place] # 0.9 H Seg Neutrophils % 85.1 H Seg Neuts % (Manual) Seg Neutrophils # 14.8 H Seg Neutrophils # Man Monocytes # (Manual) ABG pH 7.496 H ABG pO2 74.0 L ABG HCO3 28.1 H ABG O2 Saturation ABG Base Excess 4.7 H ABG Hemoglobin Oxyhemoglobin 93.9 L Sodium Chloride 95.5 L Carbon Dioxide BUN 26 H Creatinine 3.4 H Glucose 145 H POC Glucose Hemoglobin A1c Calcium Phosphorus NT-Pro-B Natriuret Pep Albumin 07/04/19 07/04/19 07/05/19 07:04 17:56 01:45 WBC RBC RDW Lymph % (Auto) [place] % (Auto) [place] # Seg Neutrophils % Seg Neuts % (Manual) Seg Neutrophils # Seg Neutrophils # Man Monocytes # (Manual) ABG pH ABG pO2 ABG HCO3 ABG O2 Saturation ABG Base Excess ABG Hemoglobin Oxyhemoglobin Sodium Chloride Carbon Dioxide BUN Creatinine Glucose POC Glucose 162 H 273 H 148 H Hemoglobin A1c Calcium Phosphorus NT-Pro-B Natriuret Pep Albumin 07/05/19 07/05/19 07/05/19 03:07 03:07 05:57 WBC 18.7 H RBC RDW 17.7 H Lymph % (Auto) 7.6 L [place] % (Auto) [place] # 1.2 H Seg Neutrophils % 84.2 H Seg Neuts % (Manual) Seg Neutrophils # 15.7 H Seg Neutrophils # Man Monocytes # (Manual) ABG pH ABG pO2 ABG HCO3 ABG O2 Saturation ABG Base Excess ABG Hemoglobin Oxyhemoglobin Sodium Chloride 94.7 L 95.6 L Carbon Dioxide 19 L BUN 23 H 26 H Creatinine 2.7 H 2.9 H Glucose 161 H 179 H POC Glucose Hemoglobin A1c Calcium 10.3 H 10.5 H Phosphorus 5.20 H D NT-Pro-B Natriuret Pep Albumin 07/05/19 07/05/19 07/05/19 06:50 07:52 09:06 WBC 16.8 H RBC RDW 18.1 H Lymph % (Auto) 8.0 L [place] % (Auto) [place] # 1.1 H Seg Neutrophils % 84.4 H Seg Neuts % (Manual) Seg Neutrophils # 14.2 H Seg Neutrophils # Man Monocytes # (Manual) ABG pH ABG pO2 ABG HCO3 ABG O2 Saturation ABG Base Excess ABG Hemoglobin 11.7 L Oxyhemoglobin 94.6 L Sodium Chloride Carbon Dioxide BUN Creatinine Glucose POC Glucose 195 H Hemoglobin A1c Calcium Phosphorus NT-Pro-B Natriuret Pep Albumin 07/05/19 07/05/19 07/06/19 12:26 17:53 01:03 WBC RBC RDW Lymph % (Auto) [place] % (Auto) [place] # Seg Neutrophils % Seg Neuts % (Manual) Seg Neutrophils # Seg Neutrophils # Man Monocytes # (Manual) ABG pH ABG pO2 ABG HCO3 ABG O2 Saturation ABG Base Excess ABG Hemoglobin Oxyhemoglobin Sodium Chloride Carbon Dioxide BUN Creatinine Glucose POC Glucose 222 H 214 H 217 H Hemoglobin A1c Calcium Phosphorus NT-Pro-B Natriuret Pep Albumin 07/06/19 07/06/19 07/06/19 03:45 04:37 04:37 WBC 15.7 H RBC RDW 17.9 H Lymph % (Auto) 9.3 L [place] % (Auto) 8.2 H [place] # 1.3 H Seg Neutrophils % 81.5 H Seg Neuts % (Manual) Seg Neutrophils # 12.8 H Seg Neutrophils # Man Monocytes # (Manual) ABG pH ABG pO2 67.1 L ABG HCO3 ABG O2 Saturation 93.3 L ABG Base Excess ABG Hemoglobin Oxyhemoglobin 91.2 L Sodium Chloride 97.5 L Carbon Dioxide 20 L BUN 50 H Creatinine 4.5 H D Glucose 192 H POC Glucose Hemoglobin A1c Calcium Phosphorus 5.80 H NT-Pro-B Natriuret Pep Albumin 07/06/19 07/06/19 07/06/19 06:10 13:47 18:40 WBC RBC RDW Lymph % (Auto) [place] % (Auto) [place] # Seg Neutrophils % Seg Neuts % (Manual) Seg Neutrophils # Seg Neutrophils # Man Monocytes # (Manual) ABG pH ABG pO2 ABG HCO3 ABG O2 Saturation ABG Base Excess ABG Hemoglobin Oxyhemoglobin Sodium Chloride Carbon Dioxide BUN Creatinine Glucose POC Glucose 214 H 233 H 225 H Hemoglobin A1c Calcium Phosphorus NT-Pro-B Natriuret Pep Albumin 07/07/19 07/07/19 07/07/19 00:11 04:30 05:33 WBC RBC RDW Lymph % (Auto) [place] % (Auto) [place] # Seg Neutrophils % Seg Neuts % (Manual) Seg Neutrophils # Seg Neutrophils # Man Monocytes # (Manual) ABG pH ABG pO2 113.7 H ABG HCO3 28.6 H ABG O2 Saturation ABG Base Excess 4.0 H ABG Hemoglobin 11.3 L Oxyhemoglobin Sodium Chloride Carbon Dioxide BUN Creatinine Glucose POC Glucose 288 H 204 H Hemoglobin A1c Calcium Phosphorus NT-Pro-B Natriuret Pep Albumin 07/07/19 07/07/19 07/07/19 05:38 05:38 11:39 WBC 15.0 H RBC RDW 18.3 H Lymph % (Auto) 10.9 L [place] % (Auto) 8.9 H [place] # 1.3 H Seg Neutrophils % 79.6 H Seg Neuts % (Manual) Seg Neutrophils # 11.9 H Seg Neutrophils # Man Monocytes # (Manual) ABG pH ABG pO2 ABG HCO3 ABG O2 Saturation ABG Base Excess ABG Hemoglobin Oxyhemoglobin Sodium Chloride 94.8 L Carbon Dioxide BUN 32 H Creatinine 2.8 H Glucose 236 H POC Glucose 309 H Hemoglobin A1c Calcium 10.6 H Phosphorus NT-Pro-B Natriuret Pep Albumin 07/07/19 07/07/19 07/08/19 18:09 23:30 03:49 WBC RBC RDW Lymph % (Auto) [place] % (Auto) [place] # Seg Neutrophils % Seg Neuts % (Manual) Seg Neutrophils # Seg Neutrophils # Man Monocytes # (Manual) ABG pH ABG pO2 116.2 H ABG HCO3 27.7 H ABG O2 Saturation ABG Base Excess ABG Hemoglobin 11.2 L Oxyhemoglobin Sodium Chloride Carbon Dioxide BUN Creatinine Glucose POC Glucose 280 H 398 H Hemoglobin A1c Calcium Phosphorus NT-Pro-B Natriuret Pep Albumin 07/08/19 07/08/19 07/08/19 04:38 04:38 05:37 WBC 13.5 H RBC RDW 18.3 H Lymph % (Auto) [place] % (Auto) 9.5 H [place] # 1.3 H Seg Neutrophils % 75.6 H Seg Neuts % (Manual) Seg Neutrophils # 10.2 H Seg Neutrophils # Man Monocytes # (Manual) ABG pH ABG pO2 ABG HCO3 ABG O2 Saturation ABG Base Excess ABG Hemoglobin Oxyhemoglobin Sodium Chloride 94.9 L Carbon Dioxide BUN 64 H Creatinine 4.2 H Glucose 288 H POC Glucose 270 H Hemoglobin A1c Calcium 10.9 H Phosphorus NT-Pro-B Natriuret Pep Albumin 07/08/19 07/08/19 07/08/19 11:47 17:36 23:23 WBC RBC RDW Lymph % (Auto) [place] % (Auto) [place] # Seg Neutrophils % Seg Neuts % (Manual) Seg Neutrophils # Seg Neutrophils # Man Monocytes # (Manual) ABG pH ABG pO2 ABG HCO3 ABG O2 Saturation ABG Base Excess ABG Hemoglobin Oxyhemoglobin Sodium Chloride Carbon Dioxide BUN Creatinine Glucose POC Glucose 211 H 259 H 276 H Hemoglobin A1c Calcium Phosphorus NT-Pro-B Natriuret Pep Albumin 07/09/19 07/09/19 07/09/19 04:08 04:29 04:29 WBC 12.8 H RBC RDW 17.7 H Lymph % (Auto) 12.5 L [place] % (Auto) 8.4 H [place] # 1.1 H Seg Neutrophils % 77.0 H Seg Neuts % (Manual) Seg Neutrophils # 9.9 H Seg Neutrophils # Man Monocytes # (Manual) ABG pH 7.471 H ABG pO2 141.8 H ABG HCO3 32.3 H ABG O2 Saturation ABG Base Excess 7.8 H ABG Hemoglobin 11.3 L Oxyhemoglobin Sodium Chloride 94.1 L Carbon Dioxide BUN 36 H Creatinine 2.6 H Glucose 217 H POC Glucose Hemoglobin A1c Calcium 11.0 H Phosphorus NT-Pro-B Natriuret Pep Albumin 07/09/19 07/09/19 07/09/19 05:25 10:46 13:07 WBC RBC RDW Lymph % (Auto) [place] % (Auto) [place] # Seg Neutrophils % Seg Neuts % (Manual) Seg Neutrophils # Seg Neutrophils # Man Monocytes # (Manual) ABG pH ABG pO2 113.2 H ABG HCO3 30.9 H ABG O2 Saturation ABG Base Excess 6.0 H ABG Hemoglobin 10.5 L Oxyhemoglobin Sodium Chloride Carbon Dioxide BUN Creatinine Glucose POC Glucose 190 H 315 H Hemoglobin A1c Calcium Phosphorus NT-Pro-B Natriuret Pep Albumin 07/09/19 07/09/19 07/10/19 17:59 23:18 04:00 WBC RBC RDW Lymph % (Auto) [place] % (Auto) [place] # Seg Neutrophils % Seg Neuts % (Manual) Seg Neutrophils # Seg Neutrophils # Man Monocytes # (Manual) ABG pH ABG pO2 77.3 L ABG HCO3 30.4 H ABG O2 Saturation ABG Base Excess 5.1 H ABG Hemoglobin Oxyhemoglobin Sodium Chloride Carbon Dioxide BUN Creatinine Glucose POC Glucose 204 H 199 H Hemoglobin A1c Calcium Phosphorus NT-Pro-B Natriuret Pep Albumin 07/10/19 07/10/19 07/10/19 04:55 04:55 05:39 WBC 23.9 H RBC RDW 18.1 H Lymph % (Auto) [place] % (Auto) [place] # Seg Neutrophils % Seg Neuts % (Manual) 81.0 H Seg Neutrophils # Seg Neutrophils # Man 19.4 H Monocytes # (Manual) 1.0 H ABG pH ABG pO2 ABG HCO3 ABG O2 Saturation ABG Base Excess ABG Hemoglobin Oxyhemoglobin Sodium 133 L Chloride 88.0 L Carbon Dioxide BUN 64 H Creatinine 3.7 H Glucose 250 H POC Glucose 288 H Hemoglobin A1c Calcium 11.1 H Phosphorus NT-Pro-B Natriuret Pep Albumin 07/10/19 07/10/19 07/10/19 12:02 18:32 23:37 WBC RBC RDW Lymph % (Auto) [place] % (Auto) [place] # Seg Neutrophils % Seg Neuts % (Manual) Seg Neutrophils # Seg Neutrophils # Man Monocytes # (Manual) ABG pH ABG pO2 ABG HCO3 ABG O2 Saturation ABG Base Excess ABG Hemoglobin Oxyhemoglobin Sodium Chloride Carbon Dioxide BUN Creatinine Glucose POC Glucose 204 H 288 H 189 H Hemoglobin A1c Calcium Phosphorus NT-Pro-B Natriuret Pep Albumin 07/11/19 07/11/19 07/11/19 05:31 06:10 06:10 WBC 16.6 H RBC 3.60 L RDW 16.8 H Lymph % (Auto) [place] % (Auto) [place] # Seg Neutrophils % Seg Neuts % (Manual) Seg Neutrophils # Seg Neutrophils # Man Monocytes # (Manual) ABG pH ABG pO2 ABG HCO3 ABG O2 Saturation ABG Base Excess ABG Hemoglobin Oxyhemoglobin Sodium 130 L Chloride 87.4 L Carbon Dioxide BUN 47 H Creatinine 2.4 H Glucose 138 H POC Glucose 135 H Hemoglobin A1c Calcium 10.8 H Phosphorus NT-Pro-B Natriuret Pep Albumin 07/11/19 07/11/19 07/11/19 12:28 18:05 23:49 WBC RBC RDW Lymph % (Auto) [place] % (Auto) [place] # Seg Neutrophils % Seg Neuts % (Manual) Seg Neutrophils # Seg Neutrophils # Man Monocytes # (Manual) ABG pH ABG pO2 ABG HCO3 ABG O2 Saturation ABG Base Excess ABG Hemoglobin Oxyhemoglobin Sodium Chloride Carbon Dioxide BUN Creatinine Glucose POC Glucose 243 H 177 H 163 H Hemoglobin A1c Calcium Phosphorus NT-Pro-B Natriuret Pep Albumin 07/12/19 07/12/19 07/12/19 05:27 05:43 05:43 WBC 15.0 H RBC RDW 17.5 H Lymph % (Auto) [place] % (Auto) [place] # Seg Neutrophils % Seg Neuts % (Manual) Seg Neutrophils # Seg Neutrophils # Man Monocytes # (Manual) ABG pH ABG pO2 ABG HCO3 ABG O2 Saturation ABG Base Excess ABG Hemoglobin Oxyhemoglobin Sodium 128 L Chloride 85.7 L Carbon Dioxide BUN 76 H Creatinine 3.8 H D Glucose 157 H POC Glucose 156 H Hemoglobin A1c Calcium 10.8 H Phosphorus NT-Pro-B Natriuret Pep Albumin 07/12/19 12:03 WBC RBC RDW Lymph % (Auto) [place] % (Auto) [place] # Seg Neutrophils % Seg Neuts % (Manual) Seg Neutrophils # Seg Neutrophils # Man Monocytes # (Manual) ABG pH ABG pO2 ABG HCO3 ABG O2 Saturation ABG Base Excess ABG Hemoglobin Oxyhemoglobin Sodium Chloride Carbon Dioxide BUN Creatinine Glucose POC Glucose 162 H Hemoglobin A1c Calcium Phosphorus NT-Pro-B Natriuret Pep Albumin Allied health notes reviewed: nursing
[2019-07-13] MEDS: METOCLOPRAMIDE 10 MG/2 ML INJ IV SCH ×3 (02:48→18:58)
[2019-07-13 06:08] LABS: ABG Base Excess 2.8 mmol/L (-2.0-3.0); ABG HCO3 27.5 mmol/L (20.0-26.0); ABG Methemoglobin 0.5 % (0.0-1.5); ABG PCO2 42.9 mm Hg; ABG PH 7.425 pH Units (7.350-7.450); ABG PO2 110.8 mm Hg (80.0-90.0)
[2019-07-13] MEDS: INSULIN LISPRO 100 UNIT/ML SUB-Q SCH ×5 (06:43→23:22)
[2019-07-13 08:22] LABS: Hematocrit 28.8 % (30.3-42.9); Hemoglobin 9.6 gm/dl (10.1-14.3); Mean Corpuscular HGB Conc 34 % (30-34); Mean Corpuscular Volume 85 fl (79-97); Platelet Count 376 K/mm3 (140-440); Red Blood Count 3.37 M/mm3 (3.65-5.03); Red Cell Distribution Width 17.4 % (13.2-15.2)
[2019-07-13 08:50] LABS: Calcium 10.3 mg/dL (8.4-10.2)
[2019-07-13] MEDS: MEROPENEM/NS 500 MG/50 ML 500 MG/50 ML BAG IV SCH ×2 (09:07→23:23)
--- NOTE | 2019-07-13 09:08 | Progress Note ---
Assessment and Plan Assessment and plan: Sepsis -CXR unremarkable -Leukocytosis present -Continue antibiotic, Merrem -Blood cultures negative Acute hypoxic respiratory failure -Continue mechanical ventilation per pulmonary.. Toxic metabolic encephalopathy -Neuro checks -Continue to treat underlying causes. ESRD on HD -M/W/F -Avoid nephrotoxic agents -Renal dose all meds -Nephrology following Congestive heart Failure -BNP >28943 on admission -Monitor input and output. -Cardiology following and reported no evidence of volume overload Hypertension -Continue to monitor BP Insulin-dependent diabetes -POC BG monitoring -SSI coverage prn Hx Seizure -Continue anticonvulsant meds -Seizure precautions. DVT PPX -On Heparin The high probability of a clinically significant, sudden or life threatening deterioration of the [respiratory] system(s) required my full and direct attention, intervention and personal management. The aggregate critical care time was [33] minutes. This time is in addition to time spent performing reported procedures but includes the following: [x] Data Review and interpretation [x] Patient assessment and monitoring of vital signs [x] Documentation [x] Medication orders and management History Interval history: Patient still intubated, No more fever Hospitalist Physical - Physical exam Narrative exam: GEN: Not in acute distress, intubated, on vent HEENT: Normocephalic, atraumatic, Neck: supple, No JVD Lungs: Bilateral rhonchi, heart;S1 and S2 reg, no murmurs Abd:soft, non tender, non distended, normal bowel sounds Ext: No edema, no clubbing, no cyanosis Neuro: Intubated, sedated - Constitutional Vitals: Temp Pulse Resp BP Pulse Ox 97.4 F L 74 14 159/69 99 07/13/19 03:53 07/13/19 08:00 07/13/19 08:00 07/13/19 08:00 07/13/19 08:00 General appearance: Present: other (intubated on the vent) MATT score - Matt Score Age > 65: (0) No Aspirin use within the Past 7 Days: (0) No 3 or more CAD Risk Factors: (1) Yes 2 or more Angina events in past 24 hrs: (0) No Known CAD with more than 50% Stenosis: (0) No Elevated Cardiac Markers: (1) Yes ST Deviation Greater than 0.5mm: (0) No MATT Score: 2 Results - Labs CBC & Chem 7: 07/13/19 07:50 07/13/19 07:50 Labs: Laboratory Last Values WBC 13.5 K/mm3 (4.5-11.0) H 07/13/19 07:50 RBC 3.37 M/mm3 (3.65-5.03) L 07/13/19 07:50 Hgb 9.6 gm/dl (10.1-14.3) L 07/13/19 07:50 Hct 28.8 % (30.3-42.9) L 07/13/19 07:50 MCV 85 fl (79-97) 07/13/19 07:50 MCH 29 pg (28-32) 07/13/19 07:50 MCHC 34 % (30-34) 07/13/19 07:50 RDW 17.4 % (13.2-15.2) H 07/13/19 07:50 Plt Count 376 K/mm3 (140-440) 07/13/19 07:50 Lymph % (Auto) Environmental Health Manager 07/10/19 04:55 [place] % (Auto) Environmental Health Manager 07/10/19 04:55 Eos % (Auto) Environmental Health Manager 07/10/19 04:55 Baso % (Auto) Environmental Health Manager 07/10/19 04:55 Lymph # Environmental Health Manager 07/10/19 04:55 [place] # Environmental Health Manager 07/10/19 04:55 Eos # Environmental Health Manager 07/10/19 04:55 Baso # Environmental Health Manager 07/10/19 04:55 Add Manual Diff Complete 07/10/19 04:55 Total Counted 100 07/10/19 04:55 Seg Neutrophils % Environmental Health Manager 07/10/19 04:55 Seg Neuts % (Manual) 81.0 % (40.0-70.0) H 07/10/19 04:55 Band Neutrophils % 0 % 07/10/19 04:55 Lymphocytes % (Manual) 14.0 % (13.4-35.0) 07/10/19 04:55 Reactive Lymphs % (Man) 0 % 07/10/19 04:55 Monocytes % (Manual) 4.0 % (0.0-7.3) 07/10/19 04:55 Eosinophils % (Manual) 0 % (0.0-4.3) 07/10/19 04:55 Basophils % (Manual) 0 % (0.0-1.8) 07/10/19 04:55 Metamyelocytes % 1.0 % 07/10/19 04:55 Myelocytes % 0 % 07/10/19 04:55 Promyelocytes % 0 % 07/10/19 04:55 Blast Cells % 0 % 07/10/19 04:55 Nucleated RBC % Not Reportable 07/10/19 04:55 Seg Neutrophils # Environmental Health Manager 07/10/19 04:55 Seg Neutrophils # Man 19.4 K/mm3 (1.8-7.7) H 07/10/19 04:55 Band Neutrophils # 0.0 K/mm3 07/10/19 04:55 Lymphocytes # (Manual) 3.3 K/mm3 (1.2-5.4) 07/10/19 04:55 Abs React Lymphs (Man) 0.0 K/mm3 07/10/19 04:55 Monocytes # (Manual) 1.0 K/mm3 (0.0-0.8) H 07/10/19 04:55 Eosinophils # (Manual) 0.0 K/mm3 (0.0-0.4) 07/10/19 04:55 Basophils # (Manual) 0.0 K/mm3 (0.0-0.1) 07/10/19 04:55 Metamyelocytes # 0.2 K/mm3 07/10/19 04:55 Myelocytes # 0.0 K/mm3 07/10/19 04:55 Promyelocytes # 0.0 K/mm3 07/10/19 04:55 Blast Cells # 0.0 K/mm3 07/10/19 04:55 WBC Morphology Not Reportable 07/10/19 04:55 Hypersegmented Neuts Not Reportable 07/10/19 04:55 Hyposegmented Neuts Not Reportable 07/10/19 04:55 Hypogranular Neuts Not Reportable 07/10/19 04:55 Smudge Cells Not Reportable 07/10/19 04:55 Toxic Granulation Not Reportable 07/10/19 04:55 Toxic Vacuolation Not Reportable 07/10/19 04:55 Dohle Bodies Not Reportable 07/10/19 04:55 Pelger-Huet Anomaly Not Reportable 07/10/19 04:55 Andrei Rods Not Reportable 07/10/19 04:55 Platelet Estimate Consistent w auto 07/10/19 04:55 Clumped Platelets Not Reportable 07/10/19 04:55 Plt Clumps, EDTA Not Reportable 07/10/19 04:55 Large Platelets Not Reportable 07/10/19 04:55 Giant Platelets Not Reportable 07/10/19 04:55 Platelet Satelliting Not Reportable 07/10/19 04:55 Plt Morphology Comment Not Reportable 07/10/19 04:55 RBC Morphology Not Reportable 07/10/19 04:55 Dimorphic RBCs Not Reportable 07/10/19 04:55 Polychromasia Not Reportable 07/10/19 04:55 Hypochromasia Not Reportable 07/10/19 04:55 Poikilocytosis Not Reportable 07/10/19 04:55 Anisocytosis Not Reportable 07/10/19 04:55 Microcytosis Not Reportable 07/10/19 04:55 Macrocytosis Not Reportable 07/10/19 04:55 Spherocytes Not Reportable 07/10/19 04:55 Pappenheimer Bodies Not Reportable 07/10/19 04:55 Sickle Cells Not Reportable 07/10/19 04:55 Target Cells Not Reportable 07/10/19 04:55 Tear Drop Cells Not Reportable 07/10/19 04:55 Ovalocytes Not Reportable 07/10/19 04:55 Helmet Cells Not Reportable 07/10/19 04:[address] [place] Bodies Not Reportable 07/10/19 04:55 [place] Rings Not Reportable 07/10/19 04:55 [place] Cells Not Reportable 07/10/19 04:55 Bite Cells Not Reportable 07/10/19 04:55 Crenated Cell Not Reportable 07/10/19 04:55 Elliptocytes Not Reportable 07/10/19 04:55 Acanthocytes (Spur) Not Reportable 07/10/19 04:55 Rouleaux Not Reportable 07/10/19 04:55 Hemoglobin C Crystals Not Reportable 07/10/19 04:55 Schistocytes Rare 07/10/19 04:55 Malaria parasites Not Reportable 07/10/19 04:55 Tristen Bodies Not Reportable 07/10/19 04:55 Hem Pathologist Commnt No 07/10/19 04:55 ABG pH 7.425 pH Units (7.350-7.450) 07/13/19 05:50 ABG pCO2 42.9 mm Hg 07/13/19 05:50 ABG pO2 110.8 mm Hg (80.0-90.0) H 07/13/19 05:50 ABG HCO3 27.5 mmol/L (20.0-26.0) H 07/13/19 05:50 ABG O2 Saturation 98.0 % (95.0-99.0) 07/13/19 05:50 ABG O2 Content 13.7 (0.0-44) 07/13/19 05:50 ABG Base Excess 2.8 mmol/L (-2.0-3.0) 07/13/19 05:50 ABG Hemoglobin 10.0 gm/dl (12.0-16.0) L 07/13/19 05:50 ABG Carboxyhemoglobin 1.4 % (0.0-5.0) 07/13/19 05:50 ABG Methemoglobin 0.5 % (0.0-1.5) 07/13/19 05:50 Oxyhemoglobin 96.2 % (95.0-99.0) 07/13/19 05:50 FiO2 40 % 07/13/19 05:50 Sodium 126 mmol/L (137-145) L 07/13/19 07:50 Potassium 5.0 mmol/L (3.6-5.0) 07/13/19 07:50 Chloride 80.8 mmol/L (98-107) L 07/13/19 07:50 Carbon Dioxide 21 mmol/L (22-30) L 07/13/19 07:50 Anion Gap 29 mmol/L 07/13/19 07:50 BUN 105 mg/dL (7-17) H 07/13/19 07:50 Creatinine 4.7 mg/dL (0.7-1.2) H 07/13/19 07:50 Estimated GFR 10 ml/min 07/13/19 07:50 BUN/Creatinine Ratio 22 % 07/13/19 07:50 Glucose 215 mg/dL (65-100) H 07/13/19 07:50 POC Glucose 216 (70-105) H 07/13/19 05:56 Hemoglobin A1c 7.0 % (4-6) H 07/03/19 01:00 Lactic Acid 1.20 mmol/L (0.7-2.0) 07/03/19 04:13 Calcium 10.3 mg/dL (8.4-10.2) H 07/13/19 07:50 Phosphorus 2.60 mg/dL (2.5-4.5) D 07/09/19 04:29 Total Bilirubin 0.30 mg/dL (0.1-1.2) 07/03/19 01:00 AST 22 units/L (5-40) 07/03/19 01:00 ALT 9 units/L (7-56) 07/03/19 01:00 Alkaline Phosphatase 101 units/L (35-129) 07/03/19 01:00 Ammonia 35.0 umol/L (25-60) 07/03/19 01:58 NT-Pro-B Natriuret Pep > 28652 pg/mL (0-900) H 07/03/19 01:00 Total Protein 7.0 g/dL (6.3-8.2) 07/03/19 01:00 Albumin 2.5 g/dL (3.9-5) L 07/03/19 01:00 Albumin/Globulin Ratio 0.6 % 07/03/19 01:00 TSH 2.600 mlU/mL (0.270-4.200) 07/03/19 01:00 Urine Color Yellow (Yellow) 07/03/19 Unknown Urine Turbidity Clear (Clear) 07/03/19 Unknown Urine pH 6.0 (5.0-7.0) 07/03/19 Unknown Ur Specific [place] 1.012 (1.003-1.030) 07/03/19 Unknown Urine Protein >500 mg/dL (Negative) 07/03/19 Unknown Urine Glucose (UA) >=500 mg/dL (Negative) 07/03/19 Unknown Urine Ketones Neg mg/dL (Negative) 07/03/19 Unknown Urine Blood Neg (Negative) 07/03/19 Unknown Urine Nitrite Neg (Negative) 07/03/19 Unknown Ur Reducing Substances Not Reportable 07/03/19 Unknown Urine Bilirubin Neg (Negative) 07/03/19 Unknown Urine Ictotest Not Reportable 07/03/19 Unknown Urine Urobilinogen < 2.0 mg/dL (<2.0) 07/03/19 Unknown Ur Leukocyte Esterase Neg (Negative) 07/03/19 Unknown Urine WBC (Auto) 1.0 /HPF (0.0-6.0) 07/03/19 Unknown Urine RBC (Auto) 2.0 /HPF (0.0-6.0) 07/03/19 Unknown U Epithel Cells (Auto) < 1.0 /HPF (0-13.0) 07/03/19 Unknown Urine Mucus Few /HPF 07/03/19 Unknown Random Vancomycin 18.7 ug/mL (0-40.0) 07/08/19 04:38 Influenza A (Rapid) Negative (Negative) 07/05/19 14:30 Influenza B (Rapid) Negative (Negative) 07/05/19 14:30 Active Medications - Current Medications Current Medications: Generic Name Dose Route Start Last Admin Trade Name Freq PRN Reason Stop Dose Admin Acetaminophen 650 mg 07/08/19 10:00 Tylenol ND Q4H PRN Pain, Mild (1-3) Albumin Human 25 gm 07/06/19 13:42 07/08/19 11:59 Alburx 25% (Albumin) IV 25 gm FEDE PRN Administration Hypotension Lipase/Protease/Amylase 1 each 07/05/19 16:[address] 10,500 Unit FEEDTUBE PRN PRN For Clogged Feeding Tube Dextrose 0 ml 07/03/19 04:34 D50w (25gm) Syringe IV Q30MIN PRN Hypoglycemia Protocol Famotidine 20 mg 07/07/19 10:00 07/12/19 10:09 Pepcid PO 20 mg DAILY YANG Administration Heparin Sodium (Porcine) 5,000 unit 07/03/19 10:00 07/12/19 22:03 Heparin SUB-Q 5,000 unit Q12HR YANG Administration Hydrophilic Ointment 1 applic 07/03/19 00:53 Vaseline Lip Therapy TP Q2HR PRN Dry Lips Fentanyl Citrate 2,000 mcg in 100 mls @ 2.608 mls/hr 07/03/19 01:00 07/04/19 18:10 Fentanyl Drip Premix IV Infused TITR YANG Titration Protocol 1 MCG/KG/HR Sodium Chloride 100 mls @ 999 mls/hr 07/05/19 13:41 Nacl 0.9% IV FEDE PRN Hypotension Meropenem 500 mg in 50 mls @ 50 mls/hr 07/07/19 14:00 07/12/19 22:03 Merrem/Ns 500 Mg/50 Ml IV 50 mls/hr Q12HR YANG Administration Insulin Glargine 18 units 07/10/19 13:43 07/12/19 10:11 Lantus SUB-Q 18 units DAILY YANG Administration Insulin Human Lispro 0 unit 07/03/19 06:00 07/13/19 06:43 Humalog SUB-Q 4 unit Q6HR YANG Administration Protocol Metoclopramide HCl 5 mg 07/11/19 17:00 07/13/19 02:48 Reglan IV 5 mg Q8H YANG Administration Multi-Ingred Cream/Lotion/Oil/Oint 1 applic 07/03/19 00:53 Artificial Tears Ophth Oint OU Q4HR PRN Dry Eye(s) Simple Syrup 15 ml 07/05/19 16:27 Simple Syrup FEEDTUBE PRN PRN Hypoglycemia Simple Syrup 30 ml 07/05/19 16:27 Simple Syrup FEEDTUBE PRN PRN Hypoglycemia Sodium Bicarbonate 325 mg 07/05/19 16:27 Sodium Bicarbonate FEEDTUBE PRN PRN For Clogged Feeding Tube Sodium Chloride 10 ml 07/03/19 10:00 07/12/19 22:00 Sodium Chloride Flush Syringe 10 Ml IV 10 ml BID YANG Administration Sodium Chloride 10 ml 07/03/19 04:34 07/05/19 10:42 Sodium Chloride Flush Syringe 10 Ml IV 10 ml PRN PRN Administration LINE FLUSH Nutrition/Malnutrition Assess - Dietary Evaluation Nutrition/Malnutrition Findings: Nutrition Notes Start: 07/06/19 08:50 Freq: Status: Active Protocol: Document 07/09/19 10:48 CW (Rec: 07/09/19 11:02 CW [id number]) Co-Sign 07/09/19 10:48 LP Nutrition Notes Initial or Follow up Reassessment Current Diagnosis CKD (stage V CKD),Decubitus( Pressure Ulcer),Diabetes,Heart Failure,Respiratory Failure Other Pertinent Diagnosis on HD, Sacral PU, seizures, bipolar disorder, metabolic encephalopathy Current Diet Nepro 1.8 at 35 ml/hr Labs/Tests BG 190 07/03: HA1C 7 Pertinent Medications Humalog Lantus Height 5 ft 2 in Weight 48.2 kg [place] Body Weight (kg) 50.00 BMI 19.4 Weight change and time frame 2% wt loss noted likely D/T to fluid loss Weight Status Appropriate Subjective/Other Information F/U for TF tolerance and stable wt. Nepro 1.8 currently running at goal rate. TF stopped for 2 hours D/T residuals of 300 mL. TF has since been restarted and is running at goal. Wt is stablizing at approxiamtely 48 kg. Percent of energy/protein needs met: 100%/100% Burn Absent Trauma Absent GI Symptoms None Current % PO Negligible Minimum of two criteria No physical signs of malnutrition #2 Nutrition Diagnosis Increased nutrient needs ( specify in comment below) Comments: Protein Diagnosis Progress(for reassessment Continues documentation) #1 Nutrition Diagnosis Inadequate oral intake Diagnosis Progress(for reassessment Continues documentation) Is patient on ventilator? Yes Is Patient Ambulatory and/or Out of Bed No REE-(Logan-St. Jeor-confined to bed) 1223.292 Kcal/Kg value to use for calculation 31 Approximate Energy Requirements Using 1494 kcal/Kg Calculation Used [facility] Recommendations [facility] Additional Notes Protein: 58 -96g (1.2-2g/kg) Fluid: 1-1.5 L/ day Nutrition Intervention Change Diet Order: TF Nutrition Support: Nepro 1.8 at 35ml/hr Flush 150 ml q4h Kcal 1,512 Protein (gm) 68 Fluid (mL) 611 Goal #1 TF tolerance Goal #2 Wound healing Anticipated Discharge Needs: unable to determine at this time Follow-Up By: 07/14/19 Additional Comments F/U for TF tolerance and stable wt.
[2019-07-13] MEDS: INSULIN GLARGINE 100 UNITS/ML SUB-Q SCH (09:11)
[2019-07-13] MEDS: FAMOTIDINE 20 MG TAB PO SCH (09:11)
[2019-07-13] MEDS: HEPARIN 5,000 UNIT/1 ML VIAL SUB-Q SCH ×2 (09:11→23:25)
--- NOTE | 2019-07-13 12:31 | Progress Note ---
Assessment and Plan Acute hypoxemic respiratory failure Toxic metabolic encephalopathy Severe Sepsis ESRD on HD Congestive heart Failure Accelerated Hypertension H/O Seizure (AMS remains a rate limiting step to extubation at this point but still not meeting other criteria also) - continue Daily SAT's and SBT assessment as tolerated - continue HD/UF per nephrology rec's for toxin and volume clearance - prn sedation target is RASS 0 to -1 - VAP bundle addressed (aspiration precautions, HOB>40 degrees) - continue lung protective strategies - continue to wean FiO2 for O2 sats >90% - continue bronchodilators with pulmonary hygiene per RT - continue Reglan re: episode of high resuiduals and tube feeds being held - continue Lantus - continue prn albuterol nebs - continue enteral nutrition at goal rate as tolerated - AED's per neurology recommendations - continue Empiric antibiotics therapies (de-escalate based on cultures and clinical condition) - ID evaluation ongoing - VTE prophylaxis with heparin SQ - continue stress ulcer prophylaxis with Famotidine - accuchecks with glycemic control for SSI (While critically ill target blood glucose of 140-180 mg/dL; avoid hypoglycemia) - mobility protocols for pressure ulcer prevention - Monitor hemodynamics closely - Fluid restrictive strategies as tolerated by hemodynamics and by her renal function (patient has a history of cardiomyopathy and has elevated BNP at this time) - continue to avoid nephrotoxins, dose all medications fro CrCL and GFR - Monitor electrolyte profile closely and replete as indicated - Chronic home medications, resume as clinically indicated - continue other care per attending / other consultants ... re-evaluate in am & prn CONDITION: CRITICAL PROGNOSIS: GUARDED CODE STATUS: FULL CODE The high probability of a clinically significant, sudden or life-threatening deterioration of the [respiratory, cardiovascular, neurology, renal] system(s) required my full and direct attention, intervention and personal management. The aggregate critical care time was [33] minutes without overlap. Time includes spent on; [x] Data Review and interpretation [x] Patient assessment and monitoring of vital signs [x] Documentation [x] Medication orders and management Subjective Date of service: 07/13/19 Principal diagnosis: Acute hypoxemic resp failure; AMS; Severe Sepsis; ESRD; CHF; HTN; Seizure Interval history: Patient is seen today for: Acute hypoxemic respiratory failure; Toxic metabolic encephalopathy; Severe Sepsis; ESRD on HD; CHF; Accelerated Hypertension; H/O Seizure Seen and examined at bedside; 24hour events reviewed; nursing and respiratory care staff consulted; no adverse overnight events reported to me; resting peac efully in bed; still not tolerating weaning attempts; still with AMS; no N/V/F/C Objective Vital Signs - 12hr 07/13/19 07/13/19 07/13/19 01:00 01:30 02:00 Temperature Pulse Rate 74 70 78 Respiratory 13 12 12 Rate Blood Pressure 148/71 159/71 149/72 O2 Sat by Pulse 99 100 98 Oximetry O2 Sat by Pulse Oximetry [ Anterior Bilateral Throughout] 07/13/19 07/13/19 07/13/19 02:30 02:56 03:00 Temperature Pulse Rate 75 75 74 Respiratory 14 17 Rate Blood Pressure 150/71 150/71 147/72 O2 Sat by Pulse 99 100 100 Oximetry O2 Sat by Pulse Oximetry [ Anterior Bilateral Throughout] 07/13/19 07/13/19 07/13/19 03:30 03:53 04:00 Temperature 97.4 F L Pulse Rate 71 71 Respiratory 16 14 Rate Blood Pressure 160/112 157/69 O2 Sat by Pulse 99 98 Oximetry O2 Sat by Pulse Oximetry [ Anterior Bilateral Throughout] 07/13/19 07/13/19 07/13/19 04:30 05:00 05:30 Temperature Pulse Rate 74 77 71 Respiratory 16 20 14 Rate Blood Pressure 171/72 187/70 152/65 O2 Sat by Pulse 96 96 97 Oximetry O2 Sat by Pulse Oximetry [ Anterior Bilateral Throughout] 07/13/19 07/13/19 07/13/19 06:00 06:30 07:00 Temperature Pulse Rate 71 72 70 Respiratory 15 14 15 Rate Blood Pressure 162/69 164/69 171/71 O2 Sat by Pulse 98 98 99 Oximetry O2 Sat by Pulse Oximetry [ Anterior Bilateral Throughout] 07/13/19 07/13/19 07/13/19 07:30 08:00 08:30 Temperature Pulse Rate 72 74 72 Respiratory 14 14 13 Rate Blood Pressure 169/70 159/69 154/68 O2 Sat by Pulse 98 99 100 Oximetry O2 Sat by Pulse Oximetry [ Anterior Bilateral Throughout] 07/13/19 07/13/19 07/13/19 09:00 09:30 09:42 Temperature Pulse Rate 72 75 71 Respiratory 16 12 Rate Blood Pressure 155/67 154/68 153/67 O2 Sat by Pulse 99 99 Oximetry O2 Sat by Pulse 100 Oximetry [ Anterior Bilateral Throughout] 07/13/19 07/13/19 07/13/19 09:45 10:00 10:15 Temperature Pulse Rate 71 77 64 Respiratory 18 Rate Blood Pressure 158/66 135/61 145/64 O2 Sat by Pulse 100 Oximetry O2 Sat by Pulse Oximetry [ Anterior Bilateral Throughout] 07/13/19 07/13/19 07/13/19 10:30 10:45 10:50 Temperature Pulse Rate 73 72 69 Respiratory 18 Rate Blood Pressure 157/67 154/65 155/59 O2 Sat by Pulse 100 100 Oximetry O2 Sat by Pulse Oximetry [ Anterior Bilateral Throughout] 07/13/19 07/13/19 07/13/19 11:00 11:15 11:30 Temperature Pulse Rate 70 71 73 Respiratory 17 21 Rate Blood Pressure 150/61 155/59 164/71 O2 Sat by Pulse 100 100 Oximetry O2 Sat by Pulse Oximetry [ Anterior Bilateral Throughout] 07/13/19 07/13/19 07/13/19 11:45 12:00 12:15 Temperature Pulse Rate 69 70 69 Respiratory Rate Blood Pressure 157/63 150/62 145/62 O2 Sat by Pulse Oximetry O2 Sat by Pulse Oximetry [ Anterior Bilateral Throughout] Constitutional: appears uncomfortable, other (middle aged thin female, normocephalic with mildly increased resp effort on MVS) Eyes: non-icteric ENT: oropharynx dry, other (ETT 23 cm JORY) Neck: supple, no lymphadenopathy, no JVD Effort: mildly labored Ascultation: Bilateral: diminished breath sounds, rhonchi Percussion: Bilateral: not dull Cardiovascular: regular rate and rhythm Gastrointestinal: normoactive bowel sounds, soft, non-tender, non-distended Integumentary: normal, decubitus ulcer (sacral) Extremities: no cyanosis, no edema, pink and warm, pulses normal Neurologic: unable to assess Psychiatric: other (unable to assess re: AMS) CBC and BMP: 07/14/19 04:17 07/14/19 04:17 ABG, PT/INR, D-dimer: ABG ABG pH 7.425 pH Units (7.350-7.450) 07/13/19 05:50 ABG pCO2 42.9 mm Hg 07/13/19 05:50 ABG pO2 110.8 mm Hg (80.0-90.0) H 07/13/19 05:50 ABG O2 Saturation 98.0 % (95.0-99.0) 07/13/19 05:50 Abnormal lab findings: Abnormal Labs 07/03/19 07/03/19 07/03/19 01:00 01:00 01:00 WBC 17.9 H RBC Hgb Hct RDW 17.8 H Lymph % (Auto) 11.7 L Ector % (Auto) Ector # 1.0 H Seg Neutrophils % 82.1 H Seg Neuts % (Manual) Seg Neutrophils # 14.7 H Seg Neutrophils # Man Monocytes # (Manual) ABG pH ABG pO2 ABG HCO3 ABG O2 Saturation ABG Base Excess ABG Hemoglobin Oxyhemoglobin Sodium Chloride 92.9 L Carbon Dioxide BUN 45 H Creatinine 5.3 H Glucose 229 H POC Glucose Hemoglobin A1c Calcium 10.5 H Phosphorus NT-Pro-B Natriuret Pep > 50983 H Albumin 2.5 L 07/03/19 07/03/19 07/03/19 01:00 01:35 04:30 WBC RBC Hgb Hct RDW Lymph % (Auto) E[place] % (Auto) E[place] # Seg Neutrophils % Seg Neuts % (Manual) Seg Neutrophils # Seg Neutrophils # Man Monocytes # (Manual) ABG pH 7.555 H 7.489 H ABG pO2 65.4 L 149.9 H ABG HCO3 28.9 H 27.9 H ABG O2 Saturation ABG Base Excess 6.7 H 4.5 H ABG Hemoglobin Oxyhemoglobin 94.0 L Sodium Chloride Carbon Dioxide BUN Creatinine Glucose POC Glucose Hemoglobin A1c 7.0 H Calcium Phosphorus NT-Pro-B Natriuret Pep Albumin 07/03/19 07/03/19 07/03/19 12:10 17:35 23:59 WBC RBC Hgb Hct RDW Lymph % (Auto) [place] % (Auto) E[place] # Seg Neutrophils % Seg Neuts % (Manual) Seg Neutrophils # Seg Neutrophils # Man Monocytes # (Manual) ABG pH ABG pO2 ABG HCO3 ABG O2 Saturation ABG Base Excess ABG Hemoglobin Oxyhemoglobin Sodium Chloride Carbon Dioxide BUN Creatinine Glucose POC Glucose 246 H 163 H 112 H Hemoglobin A1c Calcium Phosphorus NT-Pro-B Natriuret Pep Albumin 07/04/19 07/04/19 07/04/19 04:24 04:56 04:56 WBC 17.3 H RBC Hgb Hct RDW 18.0 H Lymph % (Auto) 8.7 L E[place] % (Auto) Ector # 0.9 H Seg Neutrophils % 85.1 H Seg Neuts % (Manual) Seg Neutrophils # 14.8 H Seg Neutrophils # Man Monocytes # (Manual) ABG pH 7.496 H ABG pO2 74.0 L ABG HCO3 28.1 H ABG O2 Saturation ABG Base Excess 4.7 H ABG Hemoglobin Oxyhemoglobin 93.9 L Sodium Chloride 95.5 L Carbon Dioxide BUN 26 H Creatinine 3.4 H Glucose 145 H POC Glucose Hemoglobin A1c Calcium Phosphorus NT-Pro-B Natriuret Pep Albumin 07/04/19 07/04/19 07/05/19 07:04 17:56 01:45 WBC RBC Hgb Hct RDW Lymph % (Auto) [place] % (Auto) E[place] # Seg Neutrophils % Seg Neuts % (Manual) Seg Neutrophils # Seg Neutrophils # Man Monocytes # (Manual) ABG pH ABG pO2 ABG HCO3 ABG O2 Saturation ABG Base Excess ABG Hemoglobin Oxyhemoglobin Sodium Chloride Carbon Dioxide BUN Creatinine Glucose POC Glucose 162 H 273 H 148 H Hemoglobin A1c Calcium Phosphorus NT-Pro-B Natriuret Pep Albumin 07/05/19 07/05/19 07/05/19 03:07 03:07 05:57 WBC 18.7 H RBC Hgb Hct RDW 17.7 H Lymph % (Auto) 7.6 L Ector % (Auto) Ector # 1.2 H Seg Neutrophils % 84.2 H Seg Neuts % (Manual) Seg Neutrophils # 15.7 H Seg Neutrophils # Man Monocytes # (Manual) ABG pH ABG pO2 ABG HCO3 ABG O2 Saturation ABG Base Excess ABG Hemoglobin Oxyhemoglobin Sodium Chloride 94.7 L 95.6 L Carbon Dioxide 19 L BUN 23 H 26 H Creatinine 2.7 H 2.9 H Glucose 161 H 179 H POC Glucose Hemoglobin A1c Calcium 10.3 H 10.5 H Phosphorus 5.20 H D NT-Pro-B Natriuret Pep Albumin 07/05/19 07/05/19 07/05/19 06:50 07:52 09:06 WBC 16.8 H RBC Hgb Hct RDW 18.1 H Lymph % (Auto) 8.0 L Ector % (Auto) Ector # 1.1 H Seg Neutrophils % 84.4 H Seg Neuts % (Manual) Seg Neutrophils # 14.2 H Seg Neutrophils # Man Monocytes # (Manual) ABG pH ABG pO2 ABG HCO3 ABG O2 Saturation ABG Base Excess ABG Hemoglobin 11.7 L Oxyhemoglobin 94.6 L Sodium Chloride Carbon Dioxide BUN Creatinine Glucose POC Glucose 195 H Hemoglobin A1c Calcium Phosphorus NT-Pro-B Natriuret Pep Albumin 07/05/19 07/05/19 07/06/19 12:26 17:53 01:03 WBC RBC Hgb Hct RDW Lymph % (Auto) Ector % (Auto) Ector # Seg Neutrophils % Seg Neuts % (Manual) Seg Neutrophils # Seg Neutrophils # Man Monocytes # (Manual) ABG pH ABG pO2 ABG HCO3 ABG O2 Saturation ABG Base Excess ABG Hemoglobin Oxyhemoglobin Sodium Chloride Carbon Dioxide BUN Creatinine Glucose POC Glucose 222 H 214 H 217 H Hemoglobin A1c Calcium Phosphorus NT-Pro-B Natriuret Pep Albumin 07/06/19 07/06/19 07/06/19 03:45 04:37 04:37 WBC 15.7 H RBC Hgb Hct RDW 17.9 H Lymph % (Auto) 9.3 L Ector % (Auto) 8.2 H Ector # 1.3 H Seg Neutrophils % 81.5 H Seg Neuts % (Manual) Seg Neutrophils # 12.8 H Seg Neutrophils # Man Monocytes # (Manual) ABG pH ABG pO2 67.1 L ABG HCO3 ABG O2 Saturation 93.3 L ABG Base Excess ABG Hemoglobin Oxyhemoglobin 91.2 L Sodium Chloride 97.5 L Carbon Dioxide 20 L BUN 50 H Creatinine 4.5 H D Glucose 192 H POC Glucose Hemoglobin A1c Calcium Phosphorus 5.80 H NT-Pro-B Natriuret Pep Albumin 07/06/19 07/06/19 07/06/19 06:10 13:47 18:40 WBC RBC Hgb Hct RDW Lymph % (Auto) E[place] % (Auto) E[place] # Seg Neutrophils % Seg Neuts % (Manual) Seg Neutrophils # Seg Neutrophils # Man Monocytes # (Manual) ABG pH ABG pO2 ABG HCO3 ABG O2 Saturation ABG Base Excess ABG Hemoglobin Oxyhemoglobin Sodium Chloride Carbon Dioxide BUN Creatinine Glucose POC Glucose 214 H 233 H 225 H Hemoglobin A1c Calcium Phosphorus NT-Pro-B Natriuret Pep Albumin 07/07/19 07/07/19 07/07/19 00:11 04:30 05:33 WBC RBC Hgb Hct RDW Lymph % (Auto) E[place] % (Auto) E[place] # Seg Neutrophils % Seg Neuts % (Manual) Seg Neutrophils # Seg Neutrophils # Man Monocytes # (Manual) ABG pH ABG pO2 113.7 H ABG HCO3 28.6 H ABG O2 Saturation ABG Base Excess 4.0 H ABG Hemoglobin 11.3 L Oxyhemoglobin Sodium Chloride Carbon Dioxide BUN Creatinine Glucose POC Glucose 288 H 204 H Hemoglobin A1c Calcium Phosphorus NT-Pro-B Natriuret Pep Albumin 07/07/19 07/07/19 07/07/19 05:38 05:38 11:39 WBC 15.0 H RBC Hgb Hct RDW 18.3 H Lymph % (Auto) 10.9 L Ector % (Auto) 8.9 H Ector # 1.3 H Seg Neutrophils % 79.6 H Seg Neuts % (Manual) Seg Neutrophils # 11.9 H Seg Neutrophils # Man Monocytes # (Manual) ABG pH ABG pO2 ABG HCO3 ABG O2 Saturation ABG Base Excess ABG Hemoglobin Oxyhemoglobin Sodium Chloride 94.8 L Carbon Dioxide BUN 32 H Creatinine 2.8 H Glucose 236 H POC Glucose 309 H Hemoglobin A1c Calcium 10.6 H Phosphorus NT-Pro-B Natriuret Pep Albumin 07/07/19 07/07/19 07/08/19 18:09 23:30 03:49 WBC RBC Hgb Hct RDW Lymph % (Auto) E[place] % (Auto) Ector # Seg Neutrophils % Seg Neuts % (Manual) Seg Neutrophils # Seg Neutrophils # Man Monocytes # (Manual) ABG pH ABG pO2 116.2 H ABG HCO3 27.7 H ABG O2 Saturation ABG Base Excess ABG Hemoglobin 11.2 L Oxyhemoglobin Sodium Chloride Carbon Dioxide BUN Creatinine Glucose POC Glucose 280 H 398 H Hemoglobin A1c Calcium Phosphorus NT-Pro-B Natriuret Pep Albumin 07/08/19 07/08/19 07/08/19 04:38 04:38 05:37 WBC 13.5 H RBC Hgb Hct RDW 18.3 H Lymph % (Auto) Ector % (Auto) 9.5 H Ector # 1.3 H Seg Neutrophils % 75.6 H Seg Neuts % (Manual) Seg Neutrophils # 10.2 H Seg Neutrophils # Man Monocytes # (Manual) ABG pH ABG pO2 ABG HCO3 ABG O2 Saturation ABG Base Excess ABG Hemoglobin Oxyhemoglobin Sodium Chloride 94.9 L Carbon Dioxide BUN 64 H Creatinine 4.2 H Glucose 288 H POC Glucose 270 H Hemoglobin A1c Calcium 10.9 H Phosphorus NT-Pro-B Natriuret Pep Albumin 07/08/19 07/08/19 07/08/19 11:47 17:36 23:23 WBC RBC Hgb Hct RDW Lymph % (Auto) E[place] % (Auto) E[place] # Seg Neutrophils % Seg Neuts % (Manual) Seg Neutrophils # Seg Neutrophils # Man Monocytes # (Manual) ABG pH ABG pO2 ABG HCO3 ABG O2 Saturation ABG Base Excess ABG Hemoglobin Oxyhemoglobin Sodium Chloride Carbon Dioxide BUN Creatinine Glucose POC Glucose 211 H 259 H 276 H Hemoglobin A1c Calcium Phosphorus NT-Pro-B Natriuret Pep Albumin 07/09/19 07/09/19 07/09/19 04:08 04:29 04:29 WBC 12.8 H RBC Hgb Hct RDW 17.7 H Lymph % (Auto) 12.5 L Ector % (Auto) 8.4 H Ector # 1.1 H Seg Neutrophils % 77.0 H Seg Neuts % (Manual) Seg Neutrophils # 9.9 H Seg Neutrophils # Man Monocytes # (Manual) ABG pH 7.471 H ABG pO2 141.8 H ABG HCO3 32.3 H ABG O2 Saturation ABG Base Excess 7.8 H ABG Hemoglobin 11.3 L Oxyhemoglobin Sodium Chloride 94.1 L Carbon Dioxide BUN 36 H Creatinine 2.6 H Glucose 217 H POC Glucose Hemoglobin A1c Calcium 11.0 H Phosphorus NT-Pro-B Natriuret Pep Albumin 07/09/19 07/09/19 07/09/19 05:25 10:46 13:07 WBC RBC Hgb Hct RDW Lymph % (Auto) E[place] % (Auto) E[place] # Seg Neutrophils % Seg Neuts % (Manual) Seg Neutrophils # Seg Neutrophils # Man Monocytes # (Manual) ABG pH ABG pO2 113.2 H ABG HCO3 30.9 H ABG O2 Saturation ABG Base Excess 6.0 H ABG Hemoglobin 10.5 L Oxyhemoglobin Sodium Chloride Carbon Dioxide BUN Creatinine Glucose POC Glucose 190 H 315 H Hemoglobin A1c Calcium Phosphorus NT-Pro-B Natriuret Pep Albumin 07/09/19 07/09/19 07/10/19 17:59 23:18 04:00 WBC RBC Hgb Hct RDW Lymph % (Auto) E[place] % (Auto) E[place] # Seg Neutrophils % Seg Neuts % (Manual) Seg Neutrophils # Seg Neutrophils # Man Monocytes # (Manual) ABG pH ABG pO2 77.3 L ABG HCO3 30.4 H ABG O2 Saturation ABG Base Excess 5.1 H ABG Hemoglobin Oxyhemoglobin Sodium Chloride Carbon Dioxide BUN Creatinine Glucose POC Glucose 204 H 199 H Hemoglobin A1c Calcium Phosphorus NT-Pro-B Natriuret Pep Albumin 07/10/19 07/10/19 07/10/19 04:55 04:55 05:39 WBC 23.9 H RBC Hgb Hct RDW 18.1 H Lymph % (Auto) Ector % (Auto) E[place] # Seg Neutrophils % Seg Neuts % (Manual) 81.0 H Seg Neutrophils # Seg Neutrophils # Man 19.4 H Monocytes # (Manual) 1.0 H ABG pH ABG pO2 ABG HCO3 ABG O2 Saturation ABG Base Excess ABG Hemoglobin Oxyhemoglobin Sodium 133 L Chloride 88.0 L Carbon Dioxide BUN 64 H Creatinine 3.7 H Glucose 250 H POC Glucose 288 H Hemoglobin A1c Calcium 11.1 H Phosphorus NT-Pro-B Natriuret Pep Albumin 07/10/19 07/10/19 07/10/19 12:02 18:32 23:37 WBC RBC Hgb Hct RDW Lymph % (Auto) Ector % (Auto) E[place] # Seg Neutrophils % Seg Neuts % (Manual) Seg Neutrophils # Seg Neutrophils # Man Monocytes # (Manual) ABG pH ABG pO2 ABG HCO3 ABG O2 Saturation ABG Base Excess ABG Hemoglobin Oxyhemoglobin Sodium Chloride Carbon Dioxide BUN Creatinine Glucose POC Glucose 204 H 288 H 189 H Hemoglobin A1c Calcium Phosphorus NT-Pro-B Natriuret Pep Albumin 07/11/19 07/11/19 07/11/19 05:31 06:10 06:10 WBC 16.6 H RBC 3.60 L Hgb Hct RDW 16.8 H Lymph % (Auto) E[place] % (Auto) E[place] # Seg Neutrophils % Seg Neuts % (Manual) Seg Neutrophils # Seg Neutrophils # Man Monocytes # (Manual) ABG pH ABG pO2 ABG HCO3 ABG O2 Saturation ABG Base Excess ABG Hemoglobin Oxyhemoglobin Sodium 130 L Chloride 87.4 L Carbon Dioxide BUN 47 H Creatinine 2.4 H Glucose 138 H POC Glucose 135 H Hemoglobin A1c Calcium 10.8 H Phosphorus NT-Pro-B Natriuret Pep Albumin 07/11/19 07/11/19 07/11/19 12:28 18:05 23:49 WBC RBC Hgb Hct RDW Lymph % (Auto) E[place] % (Auto) E[place] # Seg Neutrophils % Seg Neuts % (Manual) Seg Neutrophils # Seg Neutrophils # Man Monocytes # (Manual) ABG pH ABG pO2 ABG HCO3 ABG O2 Saturation ABG Base Excess ABG Hemoglobin Oxyhemoglobin Sodium Chloride Carbon Dioxide BUN Creatinine Glucose POC Glucose 243 H 177 H 163 H Hemoglobin A1c Calcium Phosphorus NT-Pro-B Natriuret Pep Albumin 07/12/19 07/12/19 07/12/19 05:27 05:43 05:43 WBC 15.0 H RBC Hgb Hct RDW 17.5 H Lymph % (Auto) E[place] % (Auto) E[place] # Seg Neutrophils % Seg Neuts % (Manual) Seg Neutrophils # Seg Neutrophils # Man Monocytes # (Manual) ABG pH ABG pO2 ABG HCO3 ABG O2 Saturation ABG Base Excess ABG Hemoglobin Oxyhemoglobin Sodium 128 L Chloride 85.7 L Carbon Dioxide BUN 76 H Creatinine 3.8 H D Glucose 157 H POC Glucose 156 H Hemoglobin A1c Calcium 10.8 H Phosphorus NT-Pro-B Natriuret Pep Albumin 07/12/19 07/12/19 07/13/19 12:03 18:30 00:03 WBC RBC Hgb Hct RDW Lymph % (Auto) E[place] % (Auto) E[place] # Seg Neutrophils % Seg Neuts % (Manual) Seg Neutrophils # Seg Neutrophils # Man Monocytes # (Manual) ABG pH ABG pO2 ABG HCO3 ABG O2 Saturation ABG Base Excess ABG Hemoglobin Oxyhemoglobin Sodium Chloride Carbon Dioxide BUN Creatinine Glucose POC Glucose 162 H 183 H 187 H Hemoglobin A1c Calcium Phosphorus NT-Pro-B Natriuret Pep Albumin 07/13/19 07/13/19 07/13/19 05:50 05:56 07:50 WBC 13.5 H RBC 3.37 L Hgb 9.6 L Hct 28.8 L RDW 17.4 H Lymph % (Auto) E[place] % (Auto) E[place] # Seg Neutrophils % Seg Neuts % (Manual) Seg Neutrophils # Seg Neutrophils # Man Monocytes # (Manual) ABG pH ABG pO2 110.8 H ABG HCO3 27.5 H ABG O2 Saturation ABG Base Excess ABG Hemoglobin 10.0 L Oxyhemoglobin Sodium Chloride Carbon Dioxide BUN Creatinine Glucose POC Glucose 216 H Hemoglobin A1c Calcium Phosphorus NT-Pro-B Natriuret Pep Albumin 07/13/19 07:50 WBC RBC Hgb Hct RDW Lymph % (Auto) [place] % (Auto) [place] # Seg Neutrophils % Seg Neuts % (Manual) Seg Neutrophils # Seg Neutrophils # Man Monocytes # (Manual) ABG pH ABG pO2 ABG HCO3 ABG O2 Saturation ABG Base Excess ABG Hemoglobin Oxyhemoglobin Sodium 126 L Chloride 80.8 L Carbon Dioxide 21 L BUN 105 H Creatinine 4.7 H Glucose 215 H POC Glucose Hemoglobin A1c Calcium 10.3 H Phosphorus NT-Pro-B Natriuret Pep Albumin Allied health notes reviewed: nursing
--- NOTE | 2019-07-13 16:28 | Progress Note ---
Assessment and Plan Cultures: 07/03/2019 blood culture: No growth 07/03/2019 tracheal aspirate culture: Usual respiratory leelee A/P: 59 yo F with ESRD on HD, diabetes, HTN, CHF, seizure, bipolar, depression and was recently hospitalized with altered mental status and found to have leukocytosis, now readmitted with respiratory distress and hypoxia: #Neutrophilic leukocytosis: source unclear. ?pneumonia, minimal cellulitis around sacral decubitus. Cultures negative. On empiric Meropenem given recent hospitalization and exposure to antibiotics. Worse today. atient opens eyes, follows commands. No other concerns per discussion with RN. No significant respiratory secretions per RT. #Acute respiratory failure: on the vent. CHF v/s pneumonia. #ESRD on HD: renally dose abx. #Sacral decubitus ulcer: wound care. CT non contrasted without evidence of fluid collection or osteomyelitis. #Acute encephalopathy: CT head on admission was unremarkable for acute process. Recs: continue renally adjusted IV Meropenem D7. Consider stopping tomorrow if all remains stable. wound care to sacral wound if WBC worsens, would get CT chest, abdomen and pelvis with IV contrast after coordinating with nephrology/HD Thank you for the consult, will follow. Kenneth Lazo MD [facility] ([facility]) M: [phone] O: [phone] F: [phone] Subjective Date of service: 07/13/19 Principal diagnosis: Acute hypoxemic resp failure; AMS; Severe Sepsis; ESRD; CHF; HTN; Seizure Interval history: Afebrile, improving white count. Objective - Exam Narrative Exam: Constitutional: opens eyes, follows commands, intubated Head, Ears, Nose: Normocephalic, atraumatic. External ears, nose normal Eyes: Conjunctivae/corneas clear. No icterus. No ptosis. Neck: intubated Oral: intubated Cardiovascular: S1, S2 normal. Respiratory: Good air entry, clear to auscultation bilaterally GI: Soft, non-tender; bowel sounds normal. No peritoneal signs. Musculoskeletal: No pedal edema, no cyanosis. Left forearm AVF Skin: Sacral decubitus with dressing Hem/Lymphatic: No palpable cervical or supraclavicular nodes. No lymphangitis Psych: no agitation Neurological: opens eyes, follows commands , intubated, on vent - Constitutional Vitals: Vital Signs Temp Pulse Resp BP Pulse Ox 98.4 F 71 14 125/65 100 07/13/19 12:00 07/13/19 15:30 07/13/19 15:30 07/13/19 15:30 07/13/19 15:30 Temperature -Last 24 Hours Temperature 98.4 F Temperature 97.8 F Temperature 97.4 F Temperature 98.9 F Temperature 97.3 F - Labs CBC & Chem 7: 07/13/19 07:50 07/13/19 07:50 Labs: Abnormal lab results 07/12/19 07/13/19 07/13/19 Range/Units 18:30 00:03 05:50 WBC (4.5-11.0) K/mm3 RBC (3.65-5.03) M/mm3 Hgb (10.1-14.3) gm/dl Hct (30.3-42.9) % RDW (13.2-15.2) % ABG pO2 110.8 H (80.0-90.0) mm Hg ABG HCO3 27.5 H (20.0-26.0) mmol/L ABG Hemoglobin 10.0 L (12.0-16.0) gm/dl Sodium (137-145) mmol/L Chloride (98-107) mmol/L Carbon Dioxide (22-30) mmol/L BUN (7-17) mg/dL Creatinine (0.7-1.2) mg/dL Glucose (65-100) mg/dL POC Glucose 183 H 187 H (70-105) Calcium (8.4-10.2) mg/dL 07/13/19 07/13/19 07/13/19 Range/Units 05:56 07:50 07:50 WBC 13.5 H (4.5-11.0) K/mm3 RBC 3.37 L (3.65-5.03) M/mm3 Hgb 9.6 L (10.1-14.3) gm/dl Hct 28.8 L (30.3-42.9) % RDW 17.4 H (13.2-15.2) % ABG pO2 (80.0-90.0) mm Hg ABG HCO3 (20.0-26.0) mmol/L ABG Hemoglobin (12.0-16.0) gm/dl Sodium 126 L (137-145) mmol/L Chloride 80.8 L (98-107) mmol/L Carbon Dioxide 21 L (22-30) mmol/L BUN 105 H (7-17) mg/dL Creatinine 4.7 H (0.7-1.2) mg/dL Glucose 215 H (65-100) mg/dL POC Glucose 216 H (70-105) Calcium 10.3 H (8.4-10.2) mg/dL 07/13/19 Range/Units 13:18 WBC (4.5-11.0) K/mm3 RBC (3.65-5.03) M/mm3 Hgb (10.1-14.3) gm/dl Hct (30.3-42.9) % RDW (13.2-15.2) % ABG pO2 (80.0-90.0) mm Hg ABG HCO3 (20.0-26.0) mmol/L ABG Hemoglobin (12.0-16.0) gm/dl Sodium (137-145) mmol/L Chloride (98-107) mmol/L Carbon Dioxide (22-30) mmol/L BUN (7-17) mg/dL Creatinine (0.7-1.2) mg/dL Glucose (65-100) mg/dL POC Glucose 187 H (70-105) Calcium (8.4-10.2) mg/dL
--- NOTE | 2019-07-13 16:43 | Progress Note ---
Assessment and Plan Acute hypoxic respiratory failure on mechanical ventilation Acute metabolic encephalopathy ESRD on HD HTN Sepsis Hx of seizures DM Type 2 on insulin Hypercalemia Hyponatremia Plan: - HD today for UF and clearance, UF removed 1800 ml - Assess dialysis needs daily - Epogen dosing for anemia management as needed - Repeat sodium level at 1800 - ID on board, on Abx, follow cultures - Currently Intubated on Vent - as per Pulmonology - Strict I&O - Renally dose meds - This pt undergoes outpatient HD at [facility] every MWF - Renal plan d/w Dr Wray Subjective Date of service: 07/13/19 Principal diagnosis: Acute hypoxemic resp failure; AMS; Severe Sepsis; ESRD; CHF; HTN; Seizure Interval history: Pt seen in ICU, intubated, arouses to verbal stimuli, no family at bedside Objective - Vital Signs Vital signs: Vital Signs - 12hr 07/13/19 07/13/19 07/13/19 05:00 05:30 06:00 Temperature Pulse Rate 77 71 71 Respiratory 20 14 15 Rate Blood Pressure 187/70 152/65 162/69 O2 Sat by Pulse 96 97 98 Oximetry O2 Sat by Pulse Oximetry [ Anterior Bilateral Throughout] 07/13/19 07/13/19 07/13/19 06:30 07:00 07:30 Temperature Pulse Rate 72 70 72 Respiratory 14 15 14 Rate Blood Pressure 164/69 171/71 169/70 O2 Sat by Pulse 98 99 98 Oximetry O2 Sat by Pulse Oximetry [ Anterior Bilateral Throughout] 07/13/19 07/13/19 07/13/19 08:00 08:30 09:00 Temperature Pulse Rate 74 72 72 Respiratory 14 13 16 Rate Blood Pressure 159/69 154/68 155/67 O2 Sat by Pulse 99 100 99 Oximetry O2 Sat by Pulse Oximetry [ Anterior Bilateral Throughout] 07/13/19 07/13/19 07/13/19 09:30 09:42 09:45 Temperature Pulse Rate 75 71 71 Respiratory 12 Rate Blood Pressure 154/68 153/67 158/66 O2 Sat by Pulse 99 Oximetry O2 Sat by Pulse 100 Oximetry [ Anterior Bilateral Throughout] 07/13/19 07/13/19 07/13/19 10:00 10:15 10:30 Temperature Pulse Rate 77 64 73 Respiratory 18 18 Rate Blood Pressure 135/61 145/64 157/67 O2 Sat by Pulse 100 100 Oximetry O2 Sat by Pulse Oximetry [ Anterior Bilateral Throughout] 07/13/19 07/13/19 07/13/19 10:45 10:50 11:00 Temperature Pulse Rate 72 69 70 Respiratory 17 Rate Blood Pressure 154/65 155/59 150/61 O2 Sat by Pulse 100 100 Oximetry O2 Sat by Pulse Oximetry [ Anterior Bilateral Throughout] 07/13/19 07/13/19 07/13/19 11:15 11:30 11:45 Temperature Pulse Rate 71 73 69 Respiratory 21 Rate Blood Pressure 155/59 164/71 157/63 O2 Sat by Pulse 100 Oximetry O2 Sat by Pulse Oximetry [ Anterior Bilateral Throughout] 07/13/19 07/13/19 07/13/19 12:00 12:15 12:30 Temperature 98.4 F Pulse Rate 70 69 70 Respiratory 18 14 Rate Blood Pressure 150/62 145/62 148/59 O2 Sat by Pulse 100 100 Oximetry O2 Sat by Pulse Oximetry [ Anterior Bilateral Throughout] 07/13/19 07/13/19 07/13/19 12:45 13:00 13:30 Temperature Pulse Rate 72 70 70 Respiratory 16 14 Rate Blood Pressure 141/59 149/64 141/59 O2 Sat by Pulse 100 100 Oximetry O2 Sat by Pulse Oximetry [ Anterior Bilateral Throughout] 07/13/19 07/13/19 07/13/19 14:00 14:30 15:00 Temperature Pulse Rate 69 69 71 Respiratory 12 14 14 Rate Blood Pressure 125/65 125/65 125/65 O2 Sat by Pulse 100 100 100 Oximetry O2 Sat by Pulse Oximetry [ Anterior Bilateral Throughout] 07/13/19 15:30 Temperature Pulse Rate 71 Respiratory 14 Rate Blood Pressure 125/65 O2 Sat by Pulse 100 Oximetry O2 Sat by Pulse Oximetry [ Anterior Bilateral Throughout] - General Appearance General appearance: intubated EENT: ATNC Neck: no JVD Respiratory: Present: Decreased Breath Sounds (intubated) Cardiology: regular, S1S2, other (ACCESS: Left AVF + thrill and bruit noted) Gastrointestinal: normoactive bowel sounds Integumentary: warm and dry Neurologic: other (intubated, arouses to verbal stimuli) Musculoskeletal: other (no edema to BLE) - Lab 07/13/19 07:50 07/13/19 07:50 Most recent lab results ABG pH 7.425 pH Units (7.350-7.450) 07/13/19 05:50 ABG pCO2 42.9 mm Hg 07/13/19 05:50 ABG pO2 110.8 mm Hg (80.0-90.0) H 07/13/19 05:50 ABG HCO3 27.5 mmol/L (20.0-26.0) H 07/13/19 05:50 ABG O2 Saturation 98.0 % (95.0-99.0) 07/13/19 05:50 Calcium 10.3 mg/dL (8.4-10.2) H 07/13/19 07:50 Phosphorus 2.60 mg/dL (2.5-4.5) D 07/09/19 04:29 Medications & Allergies - Medications Allergies/Adverse Reactions: Allergies No Known Allergies Allergy (Verified 07/03/19 10:58) Home Medications: Home Medications Medication Instructions Recorded Confirmed Last Taken Type Amlodipine Besylate [Norvasc] 10 mg PO DAILY 06/24/19 07/04/19 Unknown History AtorvaSTATin [Lipitor] 20 mg PO QHS 06/24/19 07/04/19 Unknown History Bumetanide 1 mg PO DAILY 06/24/19 07/04/19 Unknown History Cinacalcet HCl 30 mg PO DAILY 06/24/19 07/04/19 Unknown History Divalproex Sodium [Depakote 500 mg PO BID 06/24/19 07/04/19 Unknown History Sprinkle] Lispro Insulin [HumaLOG] 0 - 200 unit SQ ACHS 06/24/19 07/04/19 Unknown History Vit B Comp No.3/Folic/C/Biotin 1 each PO DAILY 06/24/19 07/04/19 Unknown History [Nephro-Umu Rx Tablet] carvediloL [Coreg] 25 mg PO BID 06/24/19 07/04/19 Unknown History hydrALAZINE [Apresoline TAB] 50 mg PO Q8HR 06/24/19 07/04/19 Unknown History ALBUTEROL NEB's [Proventil 0.083% 2.5 mg IH TIDRT #30 nebu 06/30/19 07/04/19 Unknown Rx NEBS] Lactulose [Cephulac] 20 gm PO Q8HR oral.liqd 06/30/19 07/04/19 Unknown Rx Sevelamer Carbonate [Renvela] 800 mg PO TIDWM tablet 06/30/19 07/04/19 Unknown Rx risperiDONE [RisperDAL] 0.5 mg PO BID tablet 06/30/19 07/04/19 Unknown Rx Active Medications: Generic Name Dose Route Start Last Admin Trade Name Freq PRN Reason Stop Dose Admin Acetaminophen 650 mg 07/08/19 10:00 Tylenol [place] Q4H PRN Pain, Mild (1-3) Albumin Human 25 gm 07/06/19 13:42 07/08/19 11:59 Alburx 25% (Albumin) IV 25 gm FEDE PRN Administration Hypotension Lipase/Protease/Amylase 1 each 07/05/19 16:[address] 10,500 Unit FEEDTUBE PRN PRN For Clogged Feeding Tube Dextrose 0 ml 07/03/19 04:34 D50w (25gm) Syringe IV Q30MIN PRN Hypoglycemia Protocol Famotidine 20 mg 07/07/19 10:00 07/13/19 09:11 Pepcid PO 20 mg DAILY YANG Administration Heparin Sodium (Porcine) 5,000 unit 07/03/19 10:00 07/13/19 09:11 Heparin SUB-Q 5,000 unit Q12HR YANG Administration Hydrophilic Ointment 1 applic 07/03/19 00:53 Vaseline Lip Therapy TP Q2HR PRN Dry Lips Fentanyl Citrate 2,000 mcg in 100 mls @ 2.608 mls/hr 07/03/19 01:00 07/04/19 18:10 Fentanyl Drip Premix IV Infused TITR YANG Titration Protocol 1 MCG/KG/HR Sodium Chloride 100 mls @ 999 mls/hr 07/05/19 13:41 Nacl 0.9% IV FEDE PRN Hypotension Meropenem 500 mg in 50 mls @ 50 mls/hr 07/07/19 14:00 07/13/19 09:07 Merrem/Ns 500 Mg/50 Ml IV 50 mls/hr Q12HR YANG Administration Insulin Glargine 18 units 07/10/19 13:43 07/13/19 09:11 Lantus SUB-Q 18 units DAILY YANG Administration Insulin Human Lispro 0 unit 07/03/19 06:00 07/13/19 13:28 Humalog SUB-Q 3 unit Q6HR YANG Administration Protocol Metoclopramide HCl 5 mg 07/11/19 17:00 07/13/19 09:11 Reglan IV 5 mg Q8H YANG Administration Multi-Ingred Cream/Lotion/Oil/Oint 1 applic 07/03/19 00:53 Artificial Tears Ophth Oint OU Q4HR PRN Dry Eye(s) Simple Syrup 15 ml 07/05/19 16:27 Simple Syrup FEEDTUBE PRN PRN Hypoglycemia Simple Syrup 30 ml 07/05/19 16:27 Simple Syrup FEEDTUBE PRN PRN Hypoglycemia Sodium Bicarbonate 325 mg 07/05/19 16:27 Sodium Bicarbonate FEEDTUBE PRN PRN For Clogged Feeding Tube Sodium Chloride 10 ml 07/03/19 10:00 07/13/19 09:12 Sodium Chloride Flush Syringe 10 Ml IV 10 ml BID YANG Administration Sodium Chloride 10 ml 07/03/19 04:34 07/05/19 10:42 Sodium Chloride Flush Syringe 10 Ml IV 10 ml PRN PRN Administration LINE FLUSH
[2019-07-14 04:41] LABS: Hematocrit 32.1 % (30.3-42.9); Hemoglobin 10.5 gm/dl (10.1-14.3); Mean Corpuscular HGB Conc 33 % (30-34); Mean Corpuscular Volume 86 fl (79-97); Platelet Count 425 K/mm3 (140-440); Red Blood Count 3.73 M/mm3 (3.65-5.03); Red Cell Distribution Width 17.5 % (13.2-15.2)
[2019-07-14] MEDS: INSULIN LISPRO 100 UNIT/ML SUB-Q SCH ×3 (05:05→19:11)
[2019-07-14 05:08] LABS: Calcium 9.9 mg/dL (8.4-10.2)
[2019-07-14] MEDS: METOCLOPRAMIDE 10 MG/2 ML INJ IV SCH ×3 (10:30→19:11)
[2019-07-14] MEDS: FAMOTIDINE 20 MG TAB PO SCH (10:57)
[2019-07-14] MEDS: MEROPENEM/NS 500 MG/50 ML 500 MG/50 ML BAG IV SCH ×2 (10:57→22:11)
[2019-07-14] MEDS: INSULIN GLARGINE 100 UNITS/ML SUB-Q SCH (10:58)
[2019-07-14] MEDS: HEPARIN 5,000 UNIT/1 ML VIAL SUB-Q SCH ×2 (10:58→22:11)
--- NOTE | 2019-07-14 11:37 | Progress Note ---
Assessment and Plan Acute hypoxic respiratory failure on mechanical ventilation Acute metabolic encephalopathy ESRD on HD HTN Sepsis Hx of seizures DM Type 2 on insulin Hypercalemia Hyponatremia Plan: - no indication for HD today - Assess dialysis needs daily - Epogen dosing for anemia management as needed - ID on board, on Abx, follow cultures - Currently Intubated on Vent - as per Pulmonology - Strict I&O - Renally dose meds - This pt undergoes outpatient HD at [facility] every MWF Subjective Date of service: 07/14/19 Principal diagnosis: Acute hypoxemic resp failure; AMS; Severe Sepsis; ESRD; CHF; HTN; Seizure Interval history: patient was intubated, no family at bedside Objective - Vital Signs Vital signs: Vital Signs - 12hr 07/14/19 07/14/19 07/14/19 00:00 00:30 01:00 Temperature 98.1 F Pulse Rate 75 77 83 Respiratory 14 14 15 Rate Blood Pressure 125/65 125/65 125/65 O2 Sat by Pulse 100 100 100 Oximetry 07/14/19 07/14/19 07/14/19 01:30 02:00 02:30 Temperature Pulse Rate 78 78 83 Respiratory 14 12 16 Rate Blood Pressure 125/65 125/65 125/65 O2 Sat by Pulse 100 100 100 Oximetry 07/14/19 07/14/19 07/14/19 03:00 03:30 03:55 Temperature 98.8 F Pulse Rate 86 83 Respiratory 16 12 Rate Blood Pressure 125/65 125/65 O2 Sat by Pulse 100 99 Oximetry 07/14/19 07/14/19 07/14/19 04:00 04:30 05:00 Temperature Pulse Rate 77 77 80 Respiratory 13 15 13 Rate Blood Pressure 125/65 125/65 125/65 O2 Sat by Pulse 99 100 100 Oximetry 07/14/19 07/14/19 07/14/19 05:05 05:30 06:00 Temperature Pulse Rate 78 85 80 Respiratory 11 L 14 Rate Blood Pressure 125/65 125/65 O2 Sat by Pulse 100 99 99 Oximetry 07/14/19 07/14/19 07/14/19 06:30 08:00 09:10 Temperature 99.9 F H Pulse Rate 78 85 Respiratory 12 Rate Blood Pressure 125/65 119/61 O2 Sat by Pulse 100 100 Oximetry 07/14/19 09:13 Temperature Pulse Rate 84 Respiratory 19 Rate Blood Pressure 119/61 O2 Sat by Pulse 99 Oximetry - General Appearance General appearance: cachectic, intubated EENT: ATNC, PERRL, mucous membranes dry Neck: no JVD, no carotid bruit Respiratory: Present: Clear to Ascultation Cardiology: regular, S1S2 Gastrointestinal: normoactive bowel sounds, no tenderness, no distended Integumentary: no rash, warm and dry Neurologic: other (intubated) Musculoskeletal: other (no edema in BLE) Psychiatric: other (intubated) - Lab 07/14/19 04:17 07/14/19 04:17 Most recent lab results ABG pH 7.425 pH Units (7.350-7.450) 07/13/19 05:50 ABG pCO2 42.9 mm Hg 07/13/19 05:50 ABG pO2 110.8 mm Hg (80.0-90.0) H 07/13/19 05:50 ABG HCO3 27.5 mmol/L (20.0-26.0) H 07/13/19 05:50 ABG O2 Saturation 98.0 % (95.0-99.0) 07/13/19 05:50 Calcium 9.9 mg/dL (8.4-10.2) 07/14/19 04:17 Phosphorus 2.60 mg/dL (2.5-4.5) D 07/09/19 04:29 Medications & Allergies - Medications Allergies/Adverse Reactions: Allergies No Known Allergies Allergy (Verified 07/03/19 10:58) Home Medications: Home Medications Medication Instructions Recorded Confirmed Last Taken Type Amlodipine Besylate [Norvasc] 10 mg PO DAILY 06/24/19 07/04/19 Unknown History AtorvaSTATin [Lipitor] 20 mg PO QHS 06/24/19 07/04/19 Unknown History Bumetanide 1 mg PO DAILY 06/24/19 07/04/19 Unknown History Cinacalcet HCl 30 mg PO DAILY 06/24/19 07/04/19 Unknown History Divalproex Sodium [Depakote 500 mg PO BID 06/24/19 07/04/19 Unknown History Sprinkle] Lispro Insulin [HumaLOG] 0 - 200 unit SQ ACHS 06/24/19 07/04/19 Unknown History Vit B Comp No.3/Folic/C/Biotin 1 each PO DAILY 06/24/19 07/04/19 Unknown History [Nephro-Umu Rx Tablet] carvediloL [Coreg] 25 mg PO BID 06/24/19 07/04/19 Unknown History hydrALAZINE [Apresoline TAB] 50 mg PO Q8HR 06/24/19 07/04/19 Unknown History ALBUTEROL NEB's [Proventil 0.083% 2.5 mg IH TIDRT #30 nebu 06/30/19 07/04/19 Unknown Rx NEBS] Lactulose [Cephulac] 20 gm PO Q8HR oral.liqd 06/30/19 07/04/19 Unknown Rx Sevelamer Carbonate [Renvela] 800 mg PO TIDWM tablet 06/30/19 07/04/19 Unknown Rx risperiDONE [RisperDAL] 0.5 mg PO BID tablet 06/30/19 07/04/19 Unknown Rx Active Medications: Generic Name Dose Route Start Last Admin Trade Name Freq PRN Reason Stop Dose Admin Acetaminophen 650 mg 07/08/19 10:00 Tylenol [place] Q4H PRN Pain, Mild (1-3) Albumin Human 25 gm 07/06/19 13:42 07/08/19 11:59 Alburx 25% (Albumin) IV 25 gm FEDE PRN Administration Hypotension Lipase/Protease/Amylase 1 each 07/05/19 16:27 Pancreaze 10,500 Unit FEEDTUBE PRN PRN For Clogged Feeding Tube Dextrose 0 ml 07/03/19 04:34 D50w (25gm) Syringe IV Q30MIN PRN Hypoglycemia Protocol Famotidine 20 mg 07/07/19 10:00 07/14/19 10:57 Pepcid PO 20 mg DAILY YANG Administration Heparin Sodium (Porcine) 5,000 unit 07/03/19 10:00 07/14/19 10:58 Heparin SUB-Q 5,000 unit Q12HR YANG Administration Hydrophilic Ointment 1 applic 07/03/19 00:53 Vaseline Lip Therapy TP Q2HR PRN Dry Lips Fentanyl Citrate 2,000 mcg in 100 mls @ 2.608 mls/hr 07/03/19 01:00 07/04/19 18:10 Fentanyl Drip Premix IV Infused TITR YANG Titration Protocol 1 MCG/KG/HR Sodium Chloride 100 mls @ 999 mls/hr 07/05/19 13:41 Nacl 0.9% IV FEDE PRN Hypotension Meropenem 500 mg in 50 mls @ 50 mls/hr 07/07/19 14:00 07/14/19 10:57 Merrem/Ns 500 Mg/50 Ml IV 50 mls/hr Q12HR YANG Administration Insulin Glargine 18 units 07/10/19 13:43 07/14/19 10:58 Lantus SUB-Q 18 units DAILY YANG Administration Insulin Human Lispro 0 unit 07/03/19 06:00 07/14/19 05:05 Humalog SUB-Q Not Given Q6HR [facility] Protocol Metoclopramide HCl 5 mg 07/11/19 17:00 07/14/19 10:59 Reglan IV Not Given Q8H [facility] Multi-Ingred Cream/Lotion/Oil/Oint 1 applic 07/03/19 00:53 Artificial Tears Ophth Oint OU Q4HR PRN Dry Eye(s) Simple Syrup 15 ml 07/05/19 16:27 Simple Syrup FEEDTUBE PRN PRN Hypoglycemia Simple Syrup 30 ml 07/05/19 16:27 Simple Syrup FEEDTUBE PRN PRN Hypoglycemia Sodium Bicarbonate 325 mg 07/05/19 16:27 Sodium Bicarbonate FEEDTUBE PRN PRN For Clogged Feeding Tube Sodium Chloride 10 ml 07/03/19 10:00 07/14/19 11:00 Sodium Chloride Flush Syringe 10 Ml IV 10 ml BID YANG Administration Sodium Chloride 10 ml 07/03/19 04:34 07/05/19 10:42 Sodium Chloride Flush Syringe 10 Ml IV 10 ml PRN PRN Administration LINE FLUSH
--- NOTE | 2019-07-14 12:12 | Progress Note ---
Assessment and Plan Acute hypoxemic respiratory failure Toxic metabolic encephalopathy Severe Sepsis ESRD on HD Congestive heart Failure Accelerated Hypertension H/O Seizure (AMS remains a rate limiting step to extubation at this point but still not meeting other criteria also) - repeat CXR in am - continue Daily SAT's and SBT assessment as tolerated - continue HD/UF per nephrology rec's for toxin and volume clearance - prn sedation target is RASS 0 to -1 - VAP bundle addressed (aspiration precautions, HOB>40 degrees) - continue lung protective strategies - continue to wean FiO2 for O2 sats >90% - continue bronchodilators with pulmonary hygiene per RT - continue Reglan re: episode of high resuiduals and tube feeds being held - continue Lantus - continue prn albuterol nebs - continue enteral nutrition at goal rate as tolerated - AED's per neurology recommendations - continue Empiric antibiotics therapies (de-escalate based on cultures and clinical condition) - ID evaluation ongoing - VTE prophylaxis with heparin SQ - continue stress ulcer prophylaxis with Famotidine - accuchecks with glycemic control for SSI (While critically ill target blood glucose of 140-180 mg/dL; avoid hypoglycemia) - mobility protocols for pressure ulcer prevention - Monitor hemodynamics closely - Fluid restrictive strategies as tolerated by hemodynamics and by her renal function (patient has a history of cardiomyopathy and has elevated BNP at this time) - continue to avoid nephrotoxins, dose all medications fro CrCL and GFR - Monitor electrolyte profile closely and replete as indicated - Chronic home medications, resume as clinically indicated - continue other care per attending / other consultants ... re-evaluate in am & prn CONDITION: CRITICAL PROGNOSIS: GUARDED CODE STATUS: FULL CODE The high probability of a clinically significant, sudden or life-threatening deterioration of the [respiratory, cardiovascular, neurology, renal] system(s) required my full and direct attention, intervention and personal management. The aggregate critical care time was [34] minutes without overlap. Time includes spent on; [x] Data Review and interpretation [x] Patient assessment and monitoring of vital signs [x] Documentation [x] Medication orders and management Subjective Date of service: 07/14/19 Principal diagnosis: Acute hypoxemic resp failure; AMS; Severe Sepsis; ESRD; CHF; HTN; Seizure Interval history: Patient is seen today for: Acute hypoxemic respiratory failure; Toxic metabolic encephalopathy; Severe Sepsis; ESRD on HD; CHF; Accelerated Hypertension; H/O Seizure Seen and examined at bedside; 24hour events reviewed; nursing and respiratory care staff consulted; no adverse overnight events reported to me; resting peacefully in bed; remains on MVS; AMS is persistent and weaning tenuously Objective Vital Signs - 12hr 07/14/19 07/14/19 07/14/19 00:30 01:00 01:30 Temperature Pulse Rate 77 83 78 Respiratory 14 15 14 Rate Blood Pressure 125/65 125/65 125/65 O2 Sat by Pulse 100 100 100 Oximetry 07/14/19 07/14/19 07/14/19 02:00 02:30 03:00 Temperature Pulse Rate 78 83 86 Respiratory 12 16 16 Rate Blood Pressure 125/65 125/65 125/65 O2 Sat by Pulse 100 100 100 Oximetry 07/14/19 07/14/19 07/14/19 03:30 03:55 04:00 Temperature 98.8 F Pulse Rate 83 77 Respiratory 12 13 Rate Blood Pressure 125/65 125/65 O2 Sat by Pulse 99 99 Oximetry 07/14/19 07/14/19 07/14/19 04:30 05:00 05:05 Temperature Pulse Rate 77 80 78 Respiratory 15 13 Rate Blood Pressure 125/65 125/65 O2 Sat by Pulse 100 100 100 Oximetry 07/14/19 07/14/19 07/14/19 05:30 06:00 06:30 Temperature Pulse Rate 85 80 78 Respiratory 11 L 14 12 Rate Blood Pressure 125/65 125/65 125/65 O2 Sat by Pulse 99 99 100 Oximetry 07/14/19 07/14/19 07/14/19 08:00 09:10 09:13 Temperature 99.9 F H Pulse Rate 85 84 Respiratory 19 Rate Blood Pressure 119/61 119/61 O2 Sat by Pulse 100 99 Oximetry Constitutional: appears uncomfortable, other (middle aged thin female, normocephalic with mildly increased resp effort on MVS) Eyes: non-icteric ENT: oropharynx dry, other (ETT 23 cm JORY) Neck: supple, no lymphadenopathy, no JVD Effort: mildly labored Ascultation: Bilateral: diminished breath sounds, rhonchi Percussion: Bilateral: not dull Cardiovascular: regular rate and rhythm Gastrointestinal: normoactive bowel sounds, soft, non-tender, non-distended Integumentary: normal, decubitus ulcer (sacral) Extremities: no cyanosis, no edema, pink and warm, pulses normal Neurologic: unable to assess Psychiatric: other (unable to assess re: AMS) CBC and BMP: 07/20/19 05:01 07/20/19 05:01 ABG, PT/INR, D-dimer: ABG ABG pH 7.425 pH Units (7.350-7.450) 07/13/19 05:50 ABG pCO2 42.9 mm Hg 07/13/19 05:50 ABG pO2 110.8 mm Hg (80.0-90.0) H 07/13/19 05:50 ABG O2 Saturation 98.0 % (95.0-99.0) 07/13/19 05:50 Abnormal lab findings: Abnormal Labs 07/03/19 07/03/19 07/03/19 01:00 01:00 01:00 WBC 17.9 H RBC Hgb Hct RDW 17.8 H Lymph % (Auto) 11.7 L [place] % (Auto) [place] # 1.0 H Seg Neutrophils % 82.1 H Seg Neuts % (Manual) Seg Neutrophils # 14.7 H Seg Neutrophils # Man Monocytes # (Manual) ABG pH ABG pO2 ABG HCO3 ABG O2 Saturation ABG Base Excess ABG Hemoglobin Oxyhemoglobin Sodium Chloride 92.9 L Carbon Dioxide BUN 45 H Creatinine 5.3 H Glucose 229 H POC Glucose Hemoglobin A1c Calcium 10.5 H Phosphorus NT-Pro-B Natriuret Pep > 34835 H Albumin 2.5 L 07/03/19 07/03/19 07/03/19 01:00 01:35 04:30 WBC RBC Hgb Hct RDW Lymph % (Auto) [place] % (Auto) [place] # Seg Neutrophils % Seg Neuts % (Manual) Seg Neutrophils # Seg Neutrophils # Man Monocytes # (Manual) ABG pH 7.555 H 7.489 H ABG pO2 65.4 L 149.9 H ABG HCO3 28.9 H 27.9 H ABG O2 Saturation ABG Base Excess 6.7 H 4.5 H ABG Hemoglobin Oxyhemoglobin 94.0 L Sodium Chloride Carbon Dioxide BUN Creatinine Glucose POC Glucose Hemoglobin A1c 7.0 H Calcium Phosphorus NT-Pro-B Natriuret Pep Albumin 07/03/19 07/03/19 07/03/19 12:10 17:35 23:59 WBC RBC Hgb Hct RDW Lymph % (Auto) [place] % (Auto) [place] # Seg Neutrophils % Seg Neuts % (Manual) Seg Neutrophils # Seg Neutrophils # Man Monocytes # (Manual) ABG pH ABG pO2 ABG HCO3 ABG O2 Saturation ABG Base Excess ABG Hemoglobin Oxyhemoglobin Sodium Chloride Carbon Dioxide BUN Creatinine Glucose POC Glucose 246 H 163 H 112 H Hemoglobin A1c Calcium Phosphorus NT-Pro-B Natriuret Pep Albumin 07/04/19 07/04/19 07/04/19 04:24 04:56 04:56 WBC 17.3 H RBC Hgb Hct RDW 18.0 H Lymph % (Auto) 8.7 L [place] % (Auto) [place] # 0.9 H Seg Neutrophils % 85.1 H Seg Neuts % (Manual) Seg Neutrophils # 14.8 H Seg Neutrophils # Man Monocytes # (Manual) ABG pH 7.496 H ABG pO2 74.0 L ABG HCO3 28.1 H ABG O2 Saturation ABG Base Excess 4.7 H ABG Hemoglobin Oxyhemoglobin 93.9 L Sodium Chloride 95.5 L Carbon Dioxide BUN 26 H Creatinine 3.4 H Glucose 145 H POC Glucose Hemoglobin A1c Calcium Phosphorus NT-Pro-B Natriuret Pep Albumin 07/04/19 07/04/19 07/05/19 07:04 17:56 01:45 WBC RBC Hgb Hct RDW Lymph % (Auto) [place] % (Auto) [place] # Seg Neutrophils % Seg Neuts % (Manual) Seg Neutrophils # Seg Neutrophils # Man Monocytes # (Manual) ABG pH ABG pO2 ABG HCO3 ABG O2 Saturation ABG Base Excess ABG Hemoglobin Oxyhemoglobin Sodium Chloride Carbon Dioxide BUN Creatinine Glucose POC Glucose 162 H 273 H 148 H Hemoglobin A1c Calcium Phosphorus NT-Pro-B Natriuret Pep Albumin 07/05/19 07/05/19 07/05/19 03:07 03:07 05:57 WBC 18.7 H RBC Hgb Hct RDW 17.7 H Lymph % (Auto) 7.6 L [place] % (Auto) [place] # 1.2 H Seg Neutrophils % 84.2 H Seg Neuts % (Manual) Seg Neutrophils # 15.7 H Seg Neutrophils # Man Monocytes # (Manual) ABG pH ABG pO2 ABG HCO3 ABG O2 Saturation ABG Base Excess ABG Hemoglobin Oxyhemoglobin Sodium Chloride 94.7 L 95.6 L Carbon Dioxide 19 L BUN 23 H 26 H Creatinine 2.7 H 2.9 H Glucose 161 H 179 H POC Glucose Hemoglobin A1c Calcium 10.3 H 10.5 H Phosphorus 5.20 H D NT-Pro-B Natriuret Pep Albumin 07/05/19 07/05/19 07/05/19 06:50 07:52 09:06 WBC 16.8 H RBC Hgb Hct RDW 18.1 H Lymph % (Auto) 8.0 L [place] % (Auto) [place] # 1.1 H Seg Neutrophils % 84.4 H Seg Neuts % (Manual) Seg Neutrophils # 14.2 H Seg Neutrophils # Man Monocytes # (Manual) ABG pH ABG pO2 ABG HCO3 ABG O2 Saturation ABG Base Excess ABG Hemoglobin 11.7 L Oxyhemoglobin 94.6 L Sodium Chloride Carbon Dioxide BUN Creatinine Glucose POC Glucose 195 H Hemoglobin A1c Calcium Phosphorus NT-Pro-B Natriuret Pep Albumin 07/05/19 07/05/19 07/06/19 12:26 17:53 01:03 WBC RBC Hgb Hct RDW Lymph % (Auto) [place] % (Auto) [place] # Seg Neutrophils % Seg Neuts % (Manual) Seg Neutrophils # Seg Neutrophils # Man Monocytes # (Manual) ABG pH ABG pO2 ABG HCO3 ABG O2 Saturation ABG Base Excess ABG Hemoglobin Oxyhemoglobin Sodium Chloride Carbon Dioxide BUN Creatinine Glucose POC Glucose 222 H 214 H 217 H Hemoglobin A1c Calcium Phosphorus NT-Pro-B Natriuret Pep Albumin 07/06/19 07/06/19 07/06/19 03:45 04:37 04:37 WBC 15.7 H RBC Hgb Hct RDW 17.9 H Lymph % (Auto) 9.3 L [place] % (Auto) 8.2 H [place] # 1.3 H Seg Neutrophils % 81.5 H Seg Neuts % (Manual) Seg Neutrophils # 12.8 H Seg Neutrophils # Man Monocytes # (Manual) ABG pH ABG pO2 67.1 L ABG HCO3 ABG O2 Saturation 93.3 L ABG Base Excess ABG Hemoglobin Oxyhemoglobin 91.2 L Sodium Chloride 97.5 L Carbon Dioxide 20 L BUN 50 H Creatinine 4.5 H D Glucose 192 H POC Glucose Hemoglobin A1c Calcium Phosphorus 5.80 H NT-Pro-B Natriuret Pep Albumin 07/06/19 07/06/19 07/06/19 06:10 13:47 18:40 WBC RBC Hgb Hct RDW Lymph % (Auto) [place] % (Auto) [place] # Seg Neutrophils % Seg Neuts % (Manual) Seg Neutrophils # Seg Neutrophils # Man Monocytes # (Manual) ABG pH ABG pO2 ABG HCO3 ABG O2 Saturation ABG Base Excess ABG Hemoglobin Oxyhemoglobin Sodium Chloride Carbon Dioxide BUN Creatinine Glucose POC Glucose 214 H 233 H 225 H Hemoglobin A1c Calcium Phosphorus NT-Pro-B Natriuret Pep Albumin 07/07/19 07/07/19 07/07/19 00:11 04:30 05:33 WBC RBC Hgb Hct RDW Lymph % (Auto) [place] % (Auto) [place] # Seg Neutrophils % Seg Neuts % (Manual) Seg Neutrophils # Seg Neutrophils # Man Monocytes # (Manual) ABG pH ABG pO2 113.7 H ABG HCO3 28.6 H ABG O2 Saturation ABG Base Excess 4.0 H ABG Hemoglobin 11.3 L Oxyhemoglobin Sodium Chloride Carbon Dioxide BUN Creatinine Glucose POC Glucose 288 H 204 H Hemoglobin A1c Calcium Phosphorus NT-Pro-B Natriuret Pep Albumin 07/07/19 07/07/19 07/07/19 05:38 05:38 11:39 WBC 15.0 H RBC Hgb Hct RDW 18.3 H Lymph % (Auto) 10.9 L [place] % (Auto) 8.9 H [place] # 1.3 H Seg Neutrophils % 79.6 H Seg Neuts % (Manual) Seg Neutrophils # 11.9 H Seg Neutrophils # Man Monocytes # (Manual) ABG pH ABG pO2 ABG HCO3 ABG O2 Saturation ABG Base Excess ABG Hemoglobin Oxyhemoglobin Sodium Chloride 94.8 L Carbon Dioxide BUN 32 H Creatinine 2.8 H Glucose 236 H POC Glucose 309 H Hemoglobin A1c Calcium 10.6 H Phosphorus NT-Pro-B Natriuret Pep Albumin 07/07/19 07/07/19 07/08/19 18:09 23:30 03:49 WBC RBC Hgb Hct RDW Lymph % (Auto) [place] % (Auto) [place] # Seg Neutrophils % Seg Neuts % (Manual) Seg Neutrophils # Seg Neutrophils # Man Monocytes # (Manual) ABG pH ABG pO2 116.2 H ABG HCO3 27.7 H ABG O2 Saturation ABG Base Excess ABG Hemoglobin 11.2 L Oxyhemoglobin Sodium Chloride Carbon Dioxide BUN Creatinine Glucose POC Glucose 280 H 398 H Hemoglobin A1c Calcium Phosphorus NT-Pro-B Natriuret Pep Albumin 07/08/19 07/08/19 07/08/19 04:38 04:38 05:37 WBC 13.5 H RBC Hgb Hct RDW 18.3 H Lymph % (Auto) [place] % (Auto) 9.5 H [place] # 1.3 H Seg Neutrophils % 75.6 H Seg Neuts % (Manual) Seg Neutrophils # 10.2 H Seg Neutrophils # Man Monocytes # (Manual) ABG pH ABG pO2 ABG HCO3 ABG O2 Saturation ABG Base Excess ABG Hemoglobin Oxyhemoglobin Sodium Chloride 94.9 L Carbon Dioxide BUN 64 H Creatinine 4.2 H Glucose 288 H POC Glucose 270 H Hemoglobin A1c Calcium 10.9 H Phosphorus NT-Pro-B Natriuret Pep Albumin 07/08/19 07/08/19 07/08/19 11:47 17:36 23:23 WBC RBC Hgb Hct RDW Lymph % (Auto) [place] % (Auto) [place] # Seg Neutrophils % Seg Neuts % (Manual) Seg Neutrophils # Seg Neutrophils # Man Monocytes # (Manual) ABG pH ABG pO2 ABG HCO3 ABG O2 Saturation ABG Base Excess ABG Hemoglobin Oxyhemoglobin Sodium Chloride Carbon Dioxide BUN Creatinine Glucose POC Glucose 211 H 259 H 276 H Hemoglobin A1c Calcium Phosphorus NT-Pro-B Natriuret Pep Albumin 07/09/19 07/09/19 07/09/19 04:08 04:29 04:29 WBC 12.8 H RBC Hgb Hct RDW 17.7 H Lymph % (Auto) 12.5 L [place] % (Auto) 8.4 H [place] # 1.1 H Seg Neutrophils % 77.0 H Seg Neuts % (Manual) Seg Neutrophils # 9.9 H Seg Neutrophils # Man Monocytes # (Manual) ABG pH 7.471 H ABG pO2 141.8 H ABG HCO3 32.3 H ABG O2 Saturation ABG Base Excess 7.8 H ABG Hemoglobin 11.3 L Oxyhemoglobin Sodium Chloride 94.1 L Carbon Dioxide BUN 36 H Creatinine 2.6 H Glucose 217 H POC Glucose Hemoglobin A1c Calcium 11.0 H Phosphorus NT-Pro-B Natriuret Pep Albumin 07/09/19 07/09/19 07/09/19 05:25 10:46 13:07 WBC RBC Hgb Hct RDW Lymph % (Auto) [place] % (Auto) [place] # Seg Neutrophils % Seg Neuts % (Manual) Seg Neutrophils # Seg Neutrophils # Man Monocytes # (Manual) ABG pH ABG pO2 113.2 H ABG HCO3 30.9 H ABG O2 Saturation ABG Base Excess 6.0 H ABG Hemoglobin 10.5 L Oxyhemoglobin Sodium Chloride Carbon Dioxide BUN Creatinine Glucose POC Glucose 190 H 315 H Hemoglobin A1c Calcium Phosphorus NT-Pro-B Natriuret Pep Albumin 07/09/19 07/09/19 07/10/19 17:59 23:18 04:00 WBC RBC Hgb Hct RDW Lymph % (Auto) [place] % (Auto) [place] # Seg Neutrophils % Seg Neuts % (Manual) Seg Neutrophils # Seg Neutrophils # Man Monocytes # (Manual) ABG pH ABG pO2 77.3 L ABG HCO3 30.4 H ABG O2 Saturation ABG Base Excess 5.1 H ABG Hemoglobin Oxyhemoglobin Sodium Chloride Carbon Dioxide BUN Creatinine Glucose POC Glucose 204 H 199 H Hemoglobin A1c Calcium Phosphorus NT-Pro-B Natriuret Pep Albumin 07/10/19 07/10/19 07/10/19 04:55 04:55 05:39 WBC 23.9 H RBC Hgb Hct RDW 18.1 H Lymph % (Auto) [place] % (Auto) [place] # Seg Neutrophils % Seg Neuts % (Manual) 81.0 H Seg Neutrophils # Seg Neutrophils # Man 19.4 H Monocytes # (Manual) 1.0 H ABG pH ABG pO2 ABG HCO3 ABG O2 Saturation ABG Base Excess ABG Hemoglobin Oxyhemoglobin Sodium 133 L Chloride 88.0 L Carbon Dioxide BUN 64 H Creatinine 3.7 H Glucose 250 H POC Glucose 288 H Hemoglobin A1c Calcium 11.1 H Phosphorus NT-Pro-B Natriuret Pep Albumin 07/10/19 07/10/19 07/10/19 12:02 18:32 23:37 WBC RBC Hgb Hct RDW Lymph % (Auto) [place] % (Auto) [place] # Seg Neutrophils % Seg Neuts % (Manual) Seg Neutrophils # Seg Neutrophils # Man Monocytes # (Manual) ABG pH ABG pO2 ABG HCO3 ABG O2 Saturation ABG Base Excess ABG Hemoglobin Oxyhemoglobin Sodium Chloride Carbon Dioxide BUN Creatinine Glucose POC Glucose 204 H 288 H 189 H Hemoglobin A1c Calcium Phosphorus NT-Pro-B Natriuret Pep Albumin 07/11/19 07/11/19 07/11/19 05:31 06:10 06:10 WBC 16.6 H RBC 3.60 L Hgb Hct RDW 16.8 H Lymph % (Auto) [place] % (Auto) [place] # Seg Neutrophils % Seg Neuts % (Manual) Seg Neutrophils # Seg Neutrophils # Man Monocytes # (Manual) ABG pH ABG pO2 ABG HCO3 ABG O2 Saturation ABG Base Excess ABG Hemoglobin Oxyhemoglobin Sodium 130 L Chloride 87.4 L Carbon Dioxide BUN 47 H Creatinine 2.4 H Glucose 138 H POC Glucose 135 H Hemoglobin A1c Calcium 10.8 H Phosphorus NT-Pro-B Natriuret Pep Albumin 07/11/19 07/11/19 07/11/19 12:28 18:05 23:49 WBC RBC Hgb Hct RDW Lymph % (Auto) [place] % (Auto) [place] # Seg Neutrophils % Seg Neuts % (Manual) Seg Neutrophils # Seg Neutrophils # Man Monocytes # (Manual) ABG pH ABG pO2 ABG HCO3 ABG O2 Saturation ABG Base Excess ABG Hemoglobin Oxyhemoglobin Sodium Chloride Carbon Dioxide BUN Creatinine Glucose POC Glucose 243 H 177 H 163 H Hemoglobin A1c Calcium Phosphorus NT-Pro-B Natriuret Pep Albumin 07/12/19 07/12/19 07/12/19 05:27 05:43 05:43 WBC 15.0 H RBC Hgb Hct RDW 17.5 H Lymph % (Auto) [place] % (Auto) [place] # Seg Neutrophils % Seg Neuts % (Manual) Seg Neutrophils # Seg Neutrophils # Man Monocytes # (Manual) ABG pH ABG pO2 ABG HCO3 ABG O2 Saturation ABG Base Excess ABG Hemoglobin Oxyhemoglobin Sodium 128 L Chloride 85.7 L Carbon Dioxide BUN 76 H Creatinine 3.8 H D Glucose 157 H POC Glucose 156 H Hemoglobin A1c Calcium 10.8 H Phosphorus NT-Pro-B Natriuret Pep Albumin 07/12/19 07/12/19 07/13/19 12:03 18:30 00:03 WBC RBC Hgb Hct RDW Lymph % (Auto) [place] % (Auto) [place] # Seg Neutrophils % Seg Neuts % (Manual) Seg Neutrophils # Seg Neutrophils # Man Monocytes # (Manual) ABG pH ABG pO2 ABG HCO3 ABG O2 Saturation ABG Base Excess ABG Hemoglobin Oxyhemoglobin Sodium Chloride Carbon Dioxide BUN Creatinine Glucose POC Glucose 162 H 183 H 187 H Hemoglobin A1c Calcium Phosphorus NT-Pro-B Natriuret Pep Albumin 07/13/19 07/13/19 07/13/19 05:50 05:56 07:50 WBC 13.5 H RBC 3.37 L Hgb 9.6 L Hct 28.8 L RDW 17.4 H Lymph % (Auto) [place] % (Auto) [place] # Seg Neutrophils % Seg Neuts % (Manual) Seg Neutrophils # Seg Neutrophils # Man Monocytes # (Manual) ABG pH ABG pO2 110.8 H ABG HCO3 27.5 H ABG O2 Saturation ABG Base Excess ABG Hemoglobin 10.0 L Oxyhemoglobin Sodium Chloride Carbon Dioxide BUN Creatinine Glucose POC Glucose 216 H Hemoglobin A1c Calcium Phosphorus NT-Pro-B Natriuret Pep Albumin 07/13/19 07/13/19 07/13/19 07:50 13:18 18:09 WBC RBC Hgb Hct RDW Lymph % (Auto) [place] % (Auto) [place] # Seg Neutrophils % Seg Neuts % (Manual) Seg Neutrophils # Seg Neutrophils # Man Monocytes # (Manual) ABG pH ABG pO2 ABG HCO3 ABG O2 Saturation ABG Base Excess ABG Hemoglobin Oxyhemoglobin Sodium 126 L Chloride 80.8 L Carbon Dioxide 21 L BUN 105 H Creatinine 4.7 H Glucose 215 H POC Glucose 187 H 202 H Hemoglobin A1c Calcium 10.3 H Phosphorus NT-Pro-B Natriuret Pep Albumin 07/13/19 07/13/19 07/14/19 19:44 23:23 04:17 WBC RBC Hgb Hct RDW 17.5 H Lymph % (Auto) [place] % (Auto) [place] # Seg Neutrophils % Seg Neuts % (Manual) Seg Neutrophils # Seg Neutrophils # Man Monocytes # (Manual) ABG pH ABG pO2 ABG HCO3 ABG O2 Saturation ABG Base Excess ABG Hemoglobin Oxyhemoglobin Sodium 133 L D Chloride Carbon Dioxide BUN Creatinine Glucose POC Glucose 167 H Hemoglobin A1c Calcium Phosphorus NT-Pro-B Natriuret Pep Albumin 07/14/19 07/14/19 04:17 05:03 WBC RBC Hgb Hct RDW Lymph % (Auto) [place] % (Auto) [place] # Seg Neutrophils % Seg Neuts % (Manual) Seg Neutrophils # Seg Neutrophils # Man Monocytes # (Manual) ABG pH ABG pO2 ABG HCO3 ABG O2 Saturation ABG Base Excess ABG Hemoglobin Oxyhemoglobin Sodium 131 L Chloride 88.8 L Carbon Dioxide BUN 47 H Creatinine 2.6 H Glucose 131 H POC Glucose 142 H Hemoglobin A1c Calcium Phosphorus NT-Pro-B Natriuret Pep Albumin Allied health notes reviewed: nursing
--- NOTE | 2019-07-14 12:49 | Progress Note ---
Assessment and Plan Assessment and plan: Sepsis Source is unclear. Etiology may be secondary to pneumonia versus minimal cellulitis around sacral decubitus. If WBC worsens, consider CT chest, abdomen and pelvis with IV contrast. -Continue empiric antibiotics per infectious disease Acute hypoxic respiratory failure -Continue mechanical ventilation per pulmonary. -Etiology secondary to CHF versus pneumonia. Toxic metabolic encephalopathy -Neuro checks -Continue to treat underlying causes. ESRD on HD -M/W/F -Avoid nephrotoxic agents -Renal dose all meds -Nephrology following Congestive heart Failure -BNP >49290 on admission -Monitor input and output. -Cardiology following and reported no evidence of volume overload Hypertension -Continue to monitor BP -Patient is normotensive off blood pressure medications. Insulin-dependent diabetes -POC BG monitoring -SSI coverage prn Hx Seizure -Continue anticonvulsant meds -Seizure precautions. Sacral decubitus ulcer CT non contrasted without evidence of fluid collection or osteomyelitis. DVT PPX -On Heparin The high probability of a clinically significant, sudden or life threatening deterioration of the [respiratory] system(s) required my full and direct attention, intervention and personal management. The aggregate critical care time was [31] minutes. This time is in addition to time spent performing reporte d procedures but includes the following: [x] Data Review and interpretation [x] Patient assessment and monitoring of vital signs [x] Documentation [x] Medication orders and management History Interval history: Patient remains orally intubated Hospitalist Physical - Constitutional Vitals: Temp Pulse Resp BP Pulse Ox 99.9 F H 77 19 114/58 100 07/14/19 08:00 07/14/19 12:17 07/14/19 09:13 07/14/19 12:17 07/14/19 12:17 General appearance: Present: other (intubated on the vent) - EENT Eyes: Present: PERRL, EOM intact ENT: hearing intact, clear oral mucosa, dentition normal - Neck Neck: Present: supple, normal ROM - Respiratory Respiratory effort: normal Respiratory: bilateral: CTA - Cardiovascular Rhythm: regular Heart Sounds: Present: S1 & S2. Absent: gallop, rub - Extremities Extremities: no ischemia, No edema, Full ROM - Abdominal General gastrointestinal: soft, non-tender, non-distended, normal bowel sounds - Integumentary Integumentary: Present: clear, warm, dry - Neurologic Neurologic: CNII-XII intact, moves all extremities MATT score - Matt Score Age > 65: (0) No Aspirin use within the Past 7 Days: (0) No 3 or more CAD Risk Factors: (1) Yes 2 or more Angina events in past 24 hrs: (0) No Known CAD with more than 50% Stenosis: (0) No Elevated Cardiac Markers: (1) Yes ST Deviation Greater than 0.5mm: (0) No MATT Score: 2 Results - Labs CBC & Chem 7: 07/14/19 04:17 07/14/19 04:17 Labs: Laboratory Last Values WBC 9.6 K/mm3 (4.5-11.0) 07/14/19 04:17 RBC 3.73 M/mm3 (3.65-5.03) 07/14/19 04:17 Hgb 10.5 gm/dl (10.1-14.3) 07/14/19 04:17 Hct 32.1 % (30.3-42.9) 07/14/19 04:17 MCV 86 fl (79-97) 07/14/19 04:17 MCH 28 pg (28-32) 07/14/19 04:17 MCHC 33 % (30-34) 07/14/19 04:17 RDW 17.5 % (13.2-15.2) H 07/14/19 04:17 Plt Count 425 K/mm3 (140-440) 07/14/19 04:17 Lymph % (Auto) Dry Chain Operator 07/10/19 04:55 [place] % (Auto) Dry Chain Operator 07/10/19 04:55 Eos % (Auto) Dry Chain Operator 07/10/19 04:55 Baso % (Auto) Dry Chain Operator 07/10/19 04:55 Lymph # Dry Chain Operator 07/10/19 04:55 [place] # Dry Chain Operator 07/10/19 04:55 Eos # Dry Chain Operator 07/10/19 04:55 Baso # Dry Chain Operator 07/10/19 04:55 Add Manual Diff Complete 07/10/19 04:55 Total Counted 100 07/10/19 04:55 Seg Neutrophils % Dry Chain Operator 07/10/19 04:55 Seg Neuts % (Manual) 81.0 % (40.0-70.0) H 07/10/19 04:55 Band Neutrophils % 0 % 07/10/19 04:55 Lymphocytes % (Manual) 14.0 % (13.4-35.0) 07/10/19 04:55 Reactive Lymphs % (Man) 0 % 07/10/19 04:55 Monocytes % (Manual) 4.0 % (0.0-7.3) 07/10/19 04:55 Eosinophils % (Manual) 0 % (0.0-4.3) 07/10/19 04:55 Basophils % (Manual) 0 % (0.0-1.8) 07/10/19 04:55 Metamyelocytes % 1.0 % 07/10/19 04:55 Myelocytes % 0 % 07/10/19 04:55 Promyelocytes % 0 % 07/10/19 04:55 Blast Cells % 0 % 07/10/19 04:55 Nucleated RBC % Not Reportable 07/10/19 04:55 Seg Neutrophils # Dry Chain Operator 07/10/19 04:55 Seg Neutrophils # Man 19.4 K/mm3 (1.8-7.7) H 07/10/19 04:55 Band Neutrophils # 0.0 K/mm3 07/10/19 04:55 Lymphocytes # (Manual) 3.3 K/mm3 (1.2-5.4) 07/10/19 04:55 Abs React Lymphs (Man) 0.0 K/mm3 07/10/19 04:55 Monocytes # (Manual) 1.0 K/mm3 (0.0-0.8) H 07/10/19 04:55 Eosinophils # (Manual) 0.0 K/mm3 (0.0-0.4) 07/10/19 04:55 Basophils # (Manual) 0.0 K/mm3 (0.0-0.1) 07/10/19 04:55 Metamyelocytes # 0.2 K/mm3 07/10/19 04:55 Myelocytes # 0.0 K/mm3 07/10/19 04:55 Promyelocytes # 0.0 K/mm3 07/10/19 04:55 Blast Cells # 0.0 K/mm3 07/10/19 04:55 WBC Morphology Not Reportable 07/10/19 04:55 Hypersegmented Neuts Not Reportable 07/10/19 04:55 Hyposegmented Neuts Not Reportable 07/10/19 04:55 Hypogranular Neuts Not Reportable 07/10/19 04:55 Smudge Cells Not Reportable 07/10/19 04:55 Toxic Granulation Not Reportable 07/10/19 04:55 Toxic Vacuolation Not Reportable 07/10/19 04:55 Dohle Bodies Not Reportable 07/10/19 04:55 Pelger-Huet Anomaly Not Reportable 07/10/19 04:55 Andrei Rods Not Reportable 07/10/19 04:55 Platelet Estimate Consistent w auto 07/10/19 04:55 Clumped Platelets Not Reportable 07/10/19 04:55 Plt Clumps, EDTA Not Reportable 07/10/19 04:55 Large Platelets Not Reportable 07/10/19 04:55 Giant Platelets Not Reportable 07/10/19 04:55 Platelet Satelliting Not Reportable 07/10/19 04:55 Plt Morphology Comment Not Reportable 07/10/19 04:55 RBC Morphology Not Reportable 07/10/19 04:55 Dimorphic RBCs Not Reportable 07/10/19 04:55 Polychromasia Not Reportable 07/10/19 04:55 Hypochromasia Not Reportable 07/10/19 04:55 Poikilocytosis Not Reportable 07/10/19 04:55 Anisocytosis Not Reportable 07/10/19 04:55 Microcytosis Not Reportable 07/10/19 04:55 Macrocytosis Not Reportable 07/10/19 04:55 Spherocytes Not Reportable 07/10/19 04:55 Pappenheimer Bodies Not Reportable 07/10/19 04:55 Sickle Cells Not Reportable 07/10/19 04:55 Target Cells Not Reportable 07/10/19 04:55 Tear Drop Cells Not Reportable 07/10/19 04:55 Ovalocytes Not Reportable 07/10/19 04:55 Helmet Cells Not Reportable 07/10/19 04:55 [place] Bodies Not Reportable 07/10/19 04:55 [place] Rings Not Reportable 07/10/19 04:55 [place] Cells Not Reportable 07/10/19 04:55 Bite Cells Not Reportable 07/10/19 04:55 Crenated Cell Not Reportable 07/10/19 04:55 Elliptocytes Not Reportable 07/10/19 04:55 Acanthocytes (Spur) Not Reportable 07/10/19 04:55 Rouleaux Not Reportable 07/10/19 04:55 Hemoglobin C Crystals Not Reportable 07/10/19 04:55 Schistocytes Rare 07/10/19 04:55 Malaria parasites Not Reportable 07/10/19 04:55 Tristen Bodies Not Reportable 07/10/19 04:55 Hem Pathologist Commnt No 07/10/19 04:55 ABG pH 7.425 pH Units (7.350-7.450) 07/13/19 05:50 ABG pCO2 42.9 mm Hg 07/13/19 05:50 ABG pO2 110.8 mm Hg (80.0-90.0) H 07/13/19 05:50 ABG HCO3 27.5 mmol/L (20.0-26.0) H 07/13/19 05:50 ABG O2 Saturation 98.0 % (95.0-99.0) 07/13/19 05:50 ABG O2 Content 13.7 (0.0-44) 07/13/19 05:50 ABG Base Excess 2.8 mmol/L (-2.0-3.0) 07/13/19 05:50 ABG Hemoglobin 10.0 gm/dl (12.0-16.0) L 07/13/19 05:50 ABG Carboxyhemoglobin 1.4 % (0.0-5.0) 07/13/19 05:50 ABG Methemoglobin 0.5 % (0.0-1.5) 07/13/19 05:50 Oxyhemoglobin 96.2 % (95.0-99.0) 07/13/19 05:50 FiO2 40 % 07/13/19 05:50 Sodium 131 mmol/L (137-145) L 07/14/19 04:17 Potassium 4.1 mmol/L (3.6-5.0) 07/14/19 04:17 Chloride 88.8 mmol/L (98-107) L 07/14/19 04:17 Carbon Dioxide 27 mmol/L (22-30) 07/14/19 04:17 Anion Gap 19 mmol/L 07/14/19 04:17 BUN 47 mg/dL (7-17) H 07/14/19 04:17 Creatinine 2.6 mg/dL (0.7-1.2) H 07/14/19 04:17 Estimated GFR 19 ml/min 07/14/19 04:17 BUN/Creatinine Ratio 18 % 07/14/19 04:17 Glucose 131 mg/dL (65-100) H 07/14/19 04:17 POC Glucose 142 (70-105) H 07/14/19 05:03 Hemoglobin A1c 7.0 % (4-6) H 07/03/19 01:00 Lactic Acid 1.20 mmol/L (0.7-2.0) 07/03/19 04:13 Calcium 9.9 mg/dL (8.4-10.2) 07/14/19 04:17 Phosphorus 2.60 mg/dL (2.5-4.5) D 07/09/19 04:29 Total Bilirubin 0.30 mg/dL (0.1-1.2) 07/03/19 01:00 AST 22 units/L (5-40) 07/03/19 01:00 ALT 9 units/L (7-56) 07/03/19 01:00 Alkaline Phosphatase 101 units/L (35-129) 07/03/19 01:00 Ammonia 35.0 umol/L (25-60) 07/03/19 01:58 NT-Pro-B Natriuret Pep > 03122 pg/mL (0-900) H 07/03/19 01:00 Total Protein 7.0 g/dL (6.3-8.2) 07/03/19 01:00 Albumin 2.5 g/dL (3.9-5) L 07/03/19 01:00 Albumin/Globulin Ratio 0.6 % 07/03/19 01:00 TSH 2.600 mlU/mL (0.270-4.200) 07/03/19 01:00 Urine Color Yellow (Yellow) 07/03/19 Unknown Urine Turbidity Clear (Clear) 07/03/19 Unknown Urine pH 6.0 (5.0-7.0) 07/03/19 Unknown Ur Specific [place] 1.012 (1.003-1.030) 07/03/19 Unknown Urine Protein >500 mg/dL (Negative) 07/03/19 Unknown Urine Glucose (UA) >=500 mg/dL (Negative) 07/03/19 Unknown Urine Ketones Neg mg/dL (Negative) 07/03/19 Unknown Urine Blood Neg (Negative) 07/03/19 Unknown Urine Nitrite Neg (Negative) 07/03/19 Unknown Ur Reducing Substances Not Reportable 07/03/19 Unknown Urine Bilirubin Neg (Negative) 07/03/19 Unknown Urine Ictotest Not Reportable 07/03/19 Unknown Urine Urobilinogen < 2.0 mg/dL (<2.0) 07/03/19 Unknown Ur Leukocyte Esterase Neg (Negative) 07/03/19 Unknown Urine WBC (Auto) 1.0 /HPF (0.0-6.0) 07/03/19 Unknown Urine RBC (Auto) 2.0 /HPF (0.0-6.0) 07/03/19 Unknown U Epithel Cells (Auto) < 1.0 /HPF (0-13.0) 07/03/19 Unknown Urine Mucus Few /HPF 07/03/19 Unknown Random Vancomycin 18.7 ug/mL (0-40.0) 07/08/19 04:38 Influenza A (Rapid) Negative (Negative) 07/05/19 14:30 Influenza B (Rapid) Negative (Negative) 07/05/19 14:30 Active Medications - Current Medications Current Medications: Generic Name Dose Route Start Last Admin Trade Name Freq PRN Reason Stop Dose Admin Acetaminophen 650 mg 07/08/19 10:00 Tylenol MA Q4H PRN Pain, Mild (1-3) Albumin Human 25 gm 07/06/19 13:42 07/08/19 11:59 Alburx 25% (Albumin) IV 25 gm FEDE PRN Administration Hypotension Lipase/Protease/Amylase 1 each 07/05/19 16:[address] 10,500 Unit FEEDTUBE PRN PRN For Clogged Feeding Tube Dextrose 0 ml 07/03/19 04:34 D50w (25gm) Syringe IV Q30MIN PRN Hypoglycemia Protocol Famotidine 20 mg 07/07/19 10:00 07/14/19 10:57 Pepcid PO 20 mg DAILY YANG Administration Heparin Sodium (Porcine) 5,000 unit 07/03/19 10:00 07/14/19 10:58 Heparin SUB-Q 5,000 unit Q12HR YANG Administration Hydrophilic Ointment 1 applic 07/03/19 00:53 Vaseline Lip Therapy TP Q2HR PRN Dry Lips Fentanyl Citrate 2,000 mcg in 100 mls @ 2.608 mls/hr 07/03/19 01:00 07/04/19 18:10 Fentanyl Drip Premix IV Infused TITR YANG Titration Protocol 1 MCG/KG/HR Sodium Chloride 100 mls @ 999 mls/hr 07/05/19 13:41 Nacl 0.9% IV FEDE PRN Hypotension Meropenem 500 mg in 50 mls @ 50 mls/hr 07/07/19 14:00 07/14/19 10:57 Merrem/Ns 500 Mg/50 Ml IV 50 mls/hr Q12HR YANG Administration Insulin Glargine 18 units 07/10/19 13:43 07/14/19 10:58 Lantus SUB-Q 18 units DAILY YANG Administration Insulin Human Lispro 0 unit 07/03/19 06:00 07/14/19 05:05 Humalog SUB-Q Not Given Q6HR [facility] Protocol Metoclopramide HCl 5 mg 07/11/19 17:00 07/14/19 10:59 Reglan IV Not Given Q8H [facility] Multi-Ingred Cream/Lotion/Oil/Oint 1 applic 07/03/19 00:53 Artificial Tears Ophth Oint OU Q4HR PRN Dry Eye(s) Simple Syrup 15 ml 07/05/19 16:27 Simple Syrup FEEDTUBE PRN PRN Hypoglycemia Simple Syrup 30 ml 07/05/19 16:27 Simple Syrup FEEDTUBE PRN PRN Hypoglycemia Sodium Bicarbonate 325 mg 07/05/19 16:27 Sodium Bicarbonate FEEDTUBE PRN PRN For Clogged Feeding Tube Sodium Chloride 10 ml 07/03/19 10:00 07/14/19 11:00 Sodium Chloride Flush Syringe 10 Ml IV 10 ml BID YANG Administration Sodium Chloride 10 ml 07/03/19 04:34 07/05/19 10:42 Sodium Chloride Flush Syringe 10 Ml IV 10 ml PRN PRN Administration LINE FLUSH Nutrition/Malnutrition Assess - Dietary Evaluation Nutrition/Malnutrition Findings: Nutrition Notes Start: 07/06/19 08:50 Freq: Status: Active Protocol: Document 07/14/19 11:50 MK (Rec: 07/14/19 11:59 MK [id number]) Co-Sign 07/14/19 11:50 LP Nutrition Notes Initial or Follow up Reassessment Current Diagnosis CKD (stage V CKD),Decubitus( Pressure Ulcer),Diabetes,Heart Failure,Respiratory Failure Other Pertinent Diagnosis on HD, Sacral PU, seizures, bipolar disorder, metabolic encephalopathy Current Diet Nepro 1.8 at 35 ml/hr Labs/Tests Na 131 BUN 47 Cr 2.6 Pertinent Medications Lantus Heparin Height 5 ft 2 in Weight 50.3 kg [place] Body Weight (kg) 50.00 BMI 20.2 Weight change and time frame wt gain noted with renal Weight Status Appropriate Subjective/Other Information FU for tolerance and wt. Nepro 1.8 running at 35ml/hr. Percent of energy/protein needs met: 100%/100% Burn Absent Trauma Absent GI Symptoms None Current % PO Negligible Minimum of two criteria No physical signs of malnutrition #2 Nutrition Diagnosis Increased nutrient needs ( specify in comment below) Comments: Protein Diagnosis Progress(for reassessment Continues documentation) #1 Nutrition Diagnosis Inadequate oral intake Diagnosis Progress(for reassessment Continues documentation) Is patient on ventilator? Yes Is Patient Ambulatory and/or Out of Bed No REE-([facility]-confined to bed) 1248.223 Calculation Used for Recommendations [facility] Additional Notes Protein: 58 -96g (1.2-2g/kg) Fluid: 1-1.5 L/ day Nutrition Intervention Change Diet Order: TF Nutrition Support: Nepro 1.8 at 35ml/hr Change flush to 100 ml q4h. Kcal 1,512 Protein (gm) 68 Fluid (mL) 611 Goal #1 TF tolerance Goal #2 Wound healing Anticipated Discharge Needs: unable to determine at this time Follow-Up By: 07/21/19 Additional Comments F/U for TF tolerance.
--- NOTE | 2019-07-14 15:25 | XRay Report ---
ABDOMEN 1 VIEW(S) INDICATION / CLINICAL INFORMATION: dobhoff placement. COMPARISON: None available. FINDINGS: TUBES / LINES: The feeding tube terminates in the antrum of the stomach near the pylorus. BOWEL GAS PATTERN: There is moderate to severe fecal retention throughout the colon. No evidence for bowel obstruction. FREE AIR / EXTRALUMINAL GAS: None seen. ADDITIONAL FINDINGS: No significant additional findings. IMPRESSION: The feeding tube terminates in the distal stomach. Constipation. Signer Name: Saeed Lake Jr, MD Signed: 07/14/2019 3:21 PM Workstation Name: [id number]
--- NOTE | 2019-07-14 15:26 | Progress Note ---
Assessment and Plan Cultures: 07/03/2019 blood culture: No growth 07/03/2019 tracheal aspirate culture: Usual respiratory leelee A/P: 59 yo F with ESRD on HD, diabetes, HTN, CHF, seizure, bipolar, depression and was recently hospitalized with altered mental status and found to have leukocytosis, now readmitted with respiratory distress and hypoxia: #Neutrophilic leukocytosis: source unclear. ?pneumonia, minimal cellulitis around sacral decubitus. Cultures negative. On empiric Meropenem given recent hospitalization and exposure to antibiotics. Worse today. atient opens eyes, follows commands. No other concerns per discussion with RN. No significant respiratory secretions per RT. Improving. #Acute respiratory failure: on the vent. CHF v/s pneumonia. #ESRD on HD: renally dose abx. #Sacral decubitus ulcer: wound care. CT non contrasted without evidence of fluid collection or osteomyelitis. #Acute encephalopathy: CT head on admission was unremarkable for acute process. Recs: continue renally adjusted IV Meropenem D8. Recommend stopping after today's doses. wound care to sacral wound if WBC worsens, would get CT chest, abdomen and pelvis with IV contrast after co ordinating with nephrology/HD Thank you for the consult, will follow. Kenneth Lazo MD [facility] M: [phone] O: [phone] F: [phone] Subjective Date of service: 07/14/19 Principal diagnosis: Acute hypoxemic resp failure; AMS; Severe Sepsis; ESRD; CHF; HTN; Seizure Interval history: Afebrile, white count now normal. Objective - Exam Narrative Exam: Constitutional: opens eyes, follows commands, intubated Head, Ears, Nose: Normocephalic, atraumatic. External ears, nose normal Eyes: Conjunctivae/corneas clear. Neck: intubated Oral: intubated Cardiovascular: S1, S2 normal. Respiratory: Good air entry, clear to auscultation bilaterally GI: Soft, non-tender; bowel sounds normal. No peritoneal signs. Musculoskeletal: No pedal edema, no cyanosis. Left forearm AVF Skin: Sacral decubitus with dressing Hem/Lymphatic: No palpable cervical or supraclavicular nodes. No lymphangitis Psych: no agitation Neurological: opens eyes, follows commands , intubated, on vent - Constitutional Vitals: Vital Signs Temp Pulse Resp BP Pulse Ox 99.9 F H 82 24 114/58 100 07/14/19 08:00 07/14/19 12:52 07/14/19 12:52 07/14/19 12:52 07/14/19 12:52 Temperature -Last 24 Hours Temperature 99.9 F Temperature 98.8 F Temperature 98.1 F Temperature 98.1 F Temperature 98.9 F - Labs CBC & Chem 7: 07/14/19 04:17 07/14/19 04:17 Labs: Abnormal lab results 07/13/19 07/13/19 07/13/19 Range/Units 18:09 19:44 23:23 RDW (13.2-15.2) % Sodium 133 L D (137-145) mmol/L Chloride (98-107) mmol/L BUN (7-17) mg/dL Creatinine (0.7-1.2) mg/dL Glucose (65-100) mg/dL POC Glucose 202 H 167 H (70-105) 07/14/19 07/14/19 07/14/19 Range/Units 04:17 04:17 05:03 RDW 17.5 H (13.2-15.2) % Sodium 131 L (137-145) mmol/L Chloride 88.8 L (98-107) mmol/L BUN 47 H (7-17) mg/dL Creatinine 2.6 H (0.7-1.2) mg/dL Glucose 131 H (65-100) mg/dL POC Glucose 142 H (70-105) 07/14/19 Range/Units 12:12 RDW (13.2-15.2) % Sodium (137-145) mmol/L Chloride (98-107) mmol/L BUN (7-17) mg/dL Creatinine (0.7-1.2) mg/dL Glucose (65-100) mg/dL POC Glucose 246 H (70-105)
[2019-07-15] MEDS: INSULIN LISPRO 100 UNIT/ML SUB-Q SCH ×5 (02:11→23:38)
[2019-07-15 05:28] LABS: Basophils % (Auto) 0.4 % (0.0-1.8); Eosinophils # (Auto) 0.3 K/mm3 (0.0-0.4); Eosinophils % (Auto) 2.6 % (0.0-4.3); Hemoglobin 9.9 gm/dl (10.1-14.3); Lymphocytes # (Auto) 1.7 K/mm3 (1.2-5.4); Lymphocytes % (Auto) 17.3 % (13.4-35.0); Mean Corpuscular HGB Conc 33 % (30-34); Mean Corpuscular Volume 86 fl (79-97); Monocytes # (Auto) 0.7 K/mm3 (0.0-0.8); Monocytes % (Auto) 7.3 % (0.0-7.3); Platelet Count 510 K/mm3 (140-440); Red Blood Count 3.51 M/mm3 (3.65-5.03); Red Cell Distribution Width 17.6 % (13.2-15.2)
[2019-07-15 06:07] LABS: Calcium 10.4 mg/dL (8.4-10.2)
--- NOTE | 2019-07-15 09:11 | Progress Note ---
Assessment and Plan Acute hypoxemic respiratory failure on MVS Acute toxic metabolic encephalopathy Severe Sepsis ESRD on HD Congestive heart Failure Accelerated Hypertension H/O Seizure Mental status precludes safe extubation at this time. Continue daily PSV as tolerated. If I am unable to safely liberate from MVS by the end of the week, plan for trach/PEG - VAP bundle addressed (aspiration precautions, HOB>40 degrees) -Lung protective strategies -wean FiO2 for O2 sats >90% - continue bronchodilators with pulmonary hygiene per RT - Daily SBT assessment -PSV trials today - Continue enteral nutrition - HD/UF per nephrology for toxin and volume clearance - conitue to monitor clinically, trend temperature curve and WCC - continue VTE prophylaxis with heparin SQ - continue stress ulcer prophylaxis with Famotidine - accuchecks with glycemic control for SSI (While critically ill target blood glucose of 140-180 mg/dL; avoid hypoglycemia) - continue mobility protocols and off loading for pressure ulcer prevention - Monitor hemodynamics closely - Fluid restrictive strategies as tolerated by hemodynamics and by her renal function - continue to avoid nephrotoxins, dose all medications for CrCL and GFR - Monitor electrolyte profile closely and replete as indicated - Chronic home medications, continue same -PT/OT - All other care per attending / other consultants CONDITION: CRITICAL PROGNOSIS: GUARDED CODE STATUS: FULL CODE The high probability of a clinically significant, sudden or life-threatening deterioration of the [respiratory, cardiovascular, neurology, renal] system(s) required my full and direct attention, intervention and personal management. The aggregate critical care time was [31] minutes without overlap. Time includes spent on; [x] Data Review and interpretation [x] Patient assessment and monitoring of vital signs [x] Documentation [x] Medication orders and management Subjective Date of service: 07/15/19 Principal diagnosis: Acute hypoxemic resp failure; AMS; Severe Sepsis; ESRD; CHF; HTN; Seizure Interval history: Patient is seen today for: Acute hypoxemic respiratory failure on MVS;Acute toxic metabolic encephalopathy;Severe Sepsis; ESRD on HD Seen and examined at bedside; 24hour events reviewed; nursing and respiratory care staff consulted; no adverse overnight events reported to me; Vitals, labs, medications, chart reviewed. No fevers overnight; no diarrhea, has constipation, spontaneous eye opening and obeying simple commands, HD scheduled for today; Tolerating tube feedings with acceptable glycemic control, no vomiting. Remains critically ill, orally intubated on MVS, tolerating SBT Objective Vital Signs - 12hr 07/14/19 07/14/19 07/14/19 22:00 23:00 23:54 Temperature Pulse Rate 79 73 75 Pulse Rate [ From Monitor] Respiratory 14 12 Rate Respiratory 15 Rate [Bilateral Leg] Blood Pressure 146/67 143/65 143/65 O2 Sat by Pulse 100 100 100 Oximetry 07/15/19 07/15/19 07/15/19 00:00 01:00 02:00 Temperature 99.2 F Pulse Rate 74 79 78 Pulse Rate [ 75 From Monitor] Respiratory 12 13 12 Rate Respiratory Rate [Bilateral Leg] Blood Pressure 138/63 147/70 152/68 O2 Sat by Pulse 100 98 100 Oximetry 07/15/19 07/15/19 07/15/19 03:00 03:17 04:00 Temperature 98.7 F Pulse Rate 82 76 73 Pulse Rate [ 75 From Monitor] Respiratory 14 12 Rate Respiratory Rate [Bilateral Leg] Blood Pressure 151/65 151/65 138/62 O2 Sat by Pulse 100 100 100 Oximetry 07/15/19 07/15/19 07/15/19 05:00 06:00 08:00 Temperature 97.5 F L Pulse Rate 79 77 Pulse Rate [ From Monitor] Respiratory 15 14 Rate Respiratory Rate [Bilateral Leg] Blood Pressure 137/63 154/61 O2 Sat by Pulse 99 100 Oximetry 07/15/19 08:25 Temperature Pulse Rate 77 Pulse Rate [ From Monitor] Respiratory 12 Rate Respiratory Rate [Bilateral Leg] Blood Pressure 154/61 O2 Sat by Pulse 100 Oximetry Constitutional: appears uncomfortable, other (middle aged thin female, normocephalic with mildly increased resp effort on MVS) Eyes: non-icteric ENT: oropharynx dry, other (ETT 23 cm JORY) Neck: supple, no lymphadenopathy, no JVD Effort: mildly labored Ascultation: Bilateral: diminished breath sounds, rhonchi Percussion: Bilateral: not dull Cardiovascular: regular rate and rhythm Gastrointestinal: normoactive bowel sounds, soft, non-tender, non-distended Integumentary: normal, decubitus ulcer (sacral) Extremities: no cyanosis, no edema, pink and warm, pulses normal Neurologic: unable to assess Psychiatric: other (unable to assess re: AMS) CBC and BMP: 07/16/19 04:44 07/16/19 04:44 ABG, PT/INR, D-dimer: ABG ABG pH 7.425 pH Units (7.350-7.450) 07/13/19 05:50 ABG pCO2 42.9 mm Hg 07/13/19 05:50 ABG pO2 110.8 mm Hg (80.0-90.0) H 07/13/19 05:50 ABG O2 Saturation 98.0 % (95.0-99.0) 07/13/19 05:50 Abnormal lab findings: Abnormal Labs 07/03/19 07/03/19 07/03/19 01:00 01:00 01:00 WBC 17.9 H RBC Hgb Hct RDW 17.8 H Plt Count Lymph % (Auto) 11.7 L [place] % (Auto) [place] # 1.0 H Seg Neutrophils % 82.1 H Seg Neuts % (Manual) Seg Neutrophils # 14.7 H Seg Neutrophils # Man Monocytes # (Manual) ABG pH ABG pO2 ABG HCO3 ABG O2 Saturation ABG Base Excess ABG Hemoglobin Oxyhemoglobin Sodium Chloride 92.9 L Carbon Dioxide BUN 45 H Creatinine 5.3 H Glucose 229 H POC Glucose Hemoglobin A1c Calcium 10.5 H Phosphorus NT-Pro-B Natriuret Pep > 30013 H Albumin 2.5 L 07/03/19 07/03/19 07/03/19 01:00 01:35 04:30 WBC RBC Hgb Hct RDW Plt Count Lymph % (Auto) [place] % (Auto) [place] # Seg Neutrophils % Seg Neuts % (Manual) Seg Neutrophils # Seg Neutrophils # Man Monocytes # (Manual) ABG pH 7.555 H 7.489 H ABG pO2 65.4 L 149.9 H ABG HCO3 28.9 H 27.9 H ABG O2 Saturation ABG Base Excess 6.7 H 4.5 H ABG Hemoglobin Oxyhemoglobin 94.0 L Sodium Chloride Carbon Dioxide BUN Creatinine Glucose POC Glucose Hemoglobin A1c 7.0 H Calcium Phosphorus NT-Pro-B Natriuret Pep Albumin 07/03/19 07/03/19 07/03/19 12:10 17:35 23:59 WBC RBC Hgb Hct RDW Plt Count Lymph % (Auto) [place] % (Auto) [place] # Seg Neutrophils % Seg Neuts % (Manual) Seg Neutrophils # Seg Neutrophils # Man Monocytes # (Manual) ABG pH ABG pO2 ABG HCO3 ABG O2 Saturation ABG Base Excess ABG Hemoglobin Oxyhemoglobin Sodium Chloride Carbon Dioxide BUN Creatinine Glucose POC Glucose 246 H 163 H 112 H Hemoglobin A1c Calcium Phosphorus NT-Pro-B Natriuret Pep Albumin 07/04/19 07/04/19 07/04/19 04:24 04:56 04:56 WBC 17.3 H RBC Hgb Hct RDW 18.0 H Plt Count Lymph % (Auto) 8.7 L [place] % (Auto) [place] # 0.9 H Seg Neutrophils % 85.1 H Seg Neuts % (Manual) Seg Neutrophils # 14.8 H Seg Neutrophils # Man Monocytes # (Manual) ABG pH 7.496 H ABG pO2 74.0 L ABG HCO3 28.1 H ABG O2 Saturation ABG Base Excess 4.7 H ABG Hemoglobin Oxyhemoglobin 93.9 L Sodium Chloride 95.5 L Carbon Dioxide BUN 26 H Creatinine 3.4 H Glucose 145 H POC Glucose Hemoglobin A1c Calcium Phosphorus NT-Pro-B Natriuret Pep Albumin 07/04/19 07/04/19 07/05/19 07:04 17:56 01:45 WBC RBC Hgb Hct RDW Plt Count Lymph % (Auto) [place] % (Auto) [place] # Seg Neutrophils % Seg Neuts % (Manual) Seg Neutrophils # Seg Neutrophils # Man Monocytes # (Manual) ABG pH ABG pO2 ABG HCO3 ABG O2 Saturation ABG Base Excess ABG Hemoglobin Oxyhemoglobin Sodium Chloride Carbon Dioxide BUN Creatinine Glucose POC Glucose 162 H 273 H 148 H Hemoglobin A1c Calcium Phosphorus NT-Pro-B Natriuret Pep Albumin 07/05/19 07/05/19 07/05/19 03:07 03:07 05:57 WBC 18.7 H RBC Hgb Hct RDW 17.7 H Plt Count Lymph % (Auto) 7.6 L [place] % (Auto) [place] # 1.2 H Seg Neutrophils % 84.2 H Seg Neuts % (Manual) Seg Neutrophils # 15.7 H Seg Neutrophils # Man Monocytes # (Manual) ABG pH ABG pO2 ABG HCO3 ABG O2 Saturation ABG Base Excess ABG Hemoglobin Oxyhemoglobin Sodium Chloride 94.7 L 95.6 L Carbon Dioxide 19 L BUN 23 H 26 H Creatinine 2.7 H 2.9 H Glucose 161 H 179 H POC Glucose Hemoglobin A1c Calcium 10.3 H 10.5 H Phosphorus 5.20 H D NT-Pro-B Natriuret Pep Albumin 07/05/19 07/05/19 07/05/19 06:50 07:52 09:06 WBC 16.8 H RBC Hgb Hct RDW 18.1 H Plt Count Lymph % (Auto) 8.0 L [place] % (Auto) [place] # 1.1 H Seg Neutrophils % 84.4 H Seg Neuts % (Manual) Seg Neutrophils # 14.2 H Seg Neutrophils # Man Monocytes # (Manual) ABG pH ABG pO2 ABG HCO3 ABG O2 Saturation ABG Base Excess ABG Hemoglobin 11.7 L Oxyhemoglobin 94.6 L Sodium Chloride Carbon Dioxide BUN Creatinine Glucose POC Glucose 195 H Hemoglobin A1c Calcium Phosphorus NT-Pro-B Natriuret Pep Albumin 07/05/19 07/05/19 07/06/19 12:26 17:53 01:03 WBC RBC Hgb Hct RDW Plt Count Lymph % (Auto) [place] % (Auto) [place] # Seg Neutrophils % Seg Neuts % (Manual) Seg Neutrophils # Seg Neutrophils # Man Monocytes # (Manual) ABG pH ABG pO2 ABG HCO3 ABG O2 Saturation ABG Base Excess ABG Hemoglobin Oxyhemoglobin Sodium Chloride Carbon Dioxide BUN Creatinine Glucose POC Glucose 222 H 214 H 217 H Hemoglobin A1c Calcium Phosphorus NT-Pro-B Natriuret Pep Albumin 07/06/19 07/06/19 07/06/19 03:45 04:37 04:37 WBC 15.7 H RBC Hgb Hct RDW 17.9 H Plt Count Lymph % (Auto) 9.3 L [place] % (Auto) 8.2 H [place] # 1.3 H Seg Neutrophils % 81.5 H Seg Neuts % (Manual) Seg Neutrophils # 12.8 H Seg Neutrophils # Man Monocytes # (Manual) ABG pH ABG pO2 67.1 L ABG HCO3 ABG O2 Saturation 93.3 L ABG Base Excess ABG Hemoglobin Oxyhemoglobin 91.2 L Sodium Chloride 97.5 L Carbon Dioxide 20 L BUN 50 H Creatinine 4.5 H D Glucose 192 H POC Glucose Hemoglobin A1c Calcium Phosphorus 5.80 H NT-Pro-B Natriuret Pep Albumin 07/06/19 07/06/19 07/06/19 06:10 13:47 18:40 WBC RBC Hgb Hct RDW Plt Count Lymph % (Auto) [place] % (Auto) [place] # Seg Neutrophils % Seg Neuts % (Manual) Seg Neutrophils # Seg Neutrophils # Man Monocytes # (Manual) ABG pH ABG pO2 ABG HCO3 ABG O2 Saturation ABG Base Excess ABG Hemoglobin Oxyhemoglobin Sodium Chloride Carbon Dioxide BUN Creatinine Glucose POC Glucose 214 H 233 H 225 H Hemoglobin A1c Calcium Phosphorus NT-Pro-B Natriuret Pep Albumin 07/07/19 07/07/19 07/07/19 00:11 04:30 05:33 WBC RBC Hgb Hct RDW Plt Count Lymph % (Auto) [place] % (Auto) [place] # Seg Neutrophils % Seg Neuts % (Manual) Seg Neutrophils # Seg Neutrophils # Man Monocytes # (Manual) ABG pH ABG pO2 113.7 H ABG HCO3 28.6 H ABG O2 Saturation ABG Base Excess 4.0 H ABG Hemoglobin 11.3 L Oxyhemoglobin Sodium Chloride Carbon Dioxide BUN Creatinine Glucose POC Glucose 288 H 204 H Hemoglobin A1c Calcium Phosphorus NT-Pro-B Natriuret Pep Albumin 07/07/19 07/07/19 07/07/19 05:38 05:38 11:39 WBC 15.0 H RBC Hgb Hct RDW 18.3 H Plt Count Lymph % (Auto) 10.9 L [place] % (Auto) 8.9 H [place] # 1.3 H Seg Neutrophils % 79.6 H Seg Neuts % (Manual) Seg Neutrophils # 11.9 H Seg Neutrophils # Man Monocytes # (Manual) ABG pH ABG pO2 ABG HCO3 ABG O2 Saturation ABG Base Excess ABG Hemoglobin Oxyhemoglobin Sodium Chloride 94.8 L Carbon Dioxide BUN 32 H Creatinine 2.8 H Glucose 236 H POC Glucose 309 H Hemoglobin A1c Calcium 10.6 H Phosphorus NT-Pro-B Natriuret Pep Albumin 07/07/19 07/07/19 07/08/19 18:09 23:30 03:49 WBC RBC Hgb Hct RDW Plt Count Lymph % (Auto) [place] % (Auto) [place] # Seg Neutrophils % Seg Neuts % (Manual) Seg Neutrophils # Seg Neutrophils # Man Monocytes # (Manual) ABG pH ABG pO2 116.2 H ABG HCO3 27.7 H ABG O2 Saturation ABG Base Excess ABG Hemoglobin 11.2 L Oxyhemoglobin Sodium Chloride Carbon Dioxide BUN Creatinine Glucose POC Glucose 280 H 398 H Hemoglobin A1c Calcium Phosphorus NT-Pro-B Natriuret Pep Albumin 07/08/19 07/08/19 07/08/19 04:38 04:38 05:37 WBC 13.5 H RBC Hgb Hct RDW 18.3 H Plt Count Lymph % (Auto) [place] % (Auto) 9.5 H [place] # 1.3 H Seg Neutrophils % 75.6 H Seg Neuts % (Manual) Seg Neutrophils # 10.2 H Seg Neutrophils # Man Monocytes # (Manual) ABG pH ABG pO2 ABG HCO3 ABG O2 Saturation ABG Base Excess ABG Hemoglobin Oxyhemoglobin Sodium Chloride 94.9 L Carbon Dioxide BUN 64 H Creatinine 4.2 H Glucose 288 H POC Glucose 270 H Hemoglobin A1c Calcium 10.9 H Phosphorus NT-Pro-B Natriuret Pep Albumin 07/08/19 07/08/19 07/08/19 11:47 17:36 23:23 WBC RBC Hgb Hct RDW Plt Count Lymph % (Auto) [place] % (Auto) [place] # Seg Neutrophils % Seg Neuts % (Manual) Seg Neutrophils # Seg Neutrophils # Man Monocytes # (Manual) ABG pH ABG pO2 ABG HCO3 ABG O2 Saturation ABG Base Excess ABG Hemoglobin Oxyhemoglobin Sodium Chloride Carbon Dioxide BUN Creatinine Glucose POC Glucose 211 H 259 H 276 H Hemoglobin A1c Calcium Phosphorus NT-Pro-B Natriuret Pep Albumin 07/09/19 07/09/19 07/09/19 04:08 04:29 04:29 WBC 12.8 H RBC Hgb Hct RDW 17.7 H Plt Count Lymph % (Auto) 12.5 L [place] % (Auto) 8.4 H [place] # 1.1 H Seg Neutrophils % 77.0 H Seg Neuts % (Manual) Seg Neutrophils # 9.9 H Seg Neutrophils # Man Monocytes # (Manual) ABG pH 7.471 H ABG pO2 141.8 H ABG HCO3 32.3 H ABG O2 Saturation ABG Base Excess 7.8 H ABG Hemoglobin 11.3 L Oxyhemoglobin Sodium Chloride 94.1 L Carbon Dioxide BUN 36 H Creatinine 2.6 H Glucose 217 H POC Glucose Hemoglobin A1c Calcium 11.0 H Phosphorus NT-Pro-B Natriuret Pep Albumin 07/09/19 07/09/19 07/09/19 05:25 10:46 13:07 WBC RBC Hgb Hct RDW Plt Count Lymph % (Auto) [place] % (Auto) [place] # Seg Neutrophils % Seg Neuts % (Manual) Seg Neutrophils # Seg Neutrophils # Man Monocytes # (Manual) ABG pH ABG pO2 113.2 H ABG HCO3 30.9 H ABG O2 Saturation ABG Base Excess 6.0 H ABG Hemoglobin 10.5 L Oxyhemoglobin Sodium Chloride Carbon Dioxide BUN Creatinine Glucose POC Glucose 190 H 315 H Hemoglobin A1c Calcium Phosphorus NT-Pro-B Natriuret Pep Albumin 07/09/19 07/09/19 07/10/19 17:59 23:18 04:00 WBC RBC Hgb Hct RDW Plt Count Lymph % (Auto) [place] % (Auto) [place] # Seg Neutrophils % Seg Neuts % (Manual) Seg Neutrophils # Seg Neutrophils # Man Monocytes # (Manual) ABG pH ABG pO2 77.3 L ABG HCO3 30.4 H ABG O2 Saturation ABG Base Excess 5.1 H ABG Hemoglobin Oxyhemoglobin Sodium Chloride Carbon Dioxide BUN Creatinine Glucose POC Glucose 204 H 199 H Hemoglobin A1c Calcium Phosphorus NT-Pro-B Natriuret Pep Albumin 07/10/19 07/10/19 07/10/19 04:55 04:55 05:39 WBC 23.9 H RBC Hgb Hct RDW 18.1 H Plt Count Lymph % (Auto) [place] % (Auto) [place] # Seg Neutrophils % Seg Neuts % (Manual) 81.0 H Seg Neutrophils # Seg Neutrophils # Man 19.4 H Monocytes # (Manual) 1.0 H ABG pH ABG pO2 ABG HCO3 ABG O2 Saturation ABG Base Excess ABG Hemoglobin Oxyhemoglobin Sodium 133 L Chloride 88.0 L Carbon Dioxide BUN 64 H Creatinine 3.7 H Glucose 250 H POC Glucose 288 H Hemoglobin A1c Calcium 11.1 H Phosphorus NT-Pro-B Natriuret Pep Albumin 07/10/19 07/10/19 07/10/19 12:02 18:32 23:37 WBC RBC Hgb Hct RDW Plt Count Lymph % (Auto) [place] % (Auto) [place] # Seg Neutrophils % Seg Neuts % (Manual) Seg Neutrophils # Seg Neutrophils # Man Monocytes # (Manual) ABG pH ABG pO2 ABG HCO3 ABG O2 Saturation ABG Base Excess ABG Hemoglobin Oxyhemoglobin Sodium Chloride Carbon Dioxide BUN Creatinine Glucose POC Glucose 204 H 288 H 189 H Hemoglobin A1c Calcium Phosphorus NT-Pro-B Natriuret Pep Albumin 07/11/19 07/11/19 07/11/19 05:31 06:10 06:10 WBC 16.6 H RBC 3.60 L Hgb Hct RDW 16.8 H Plt Count Lymph % (Auto) [place] % (Auto) [place] # Seg Neutrophils % Seg Neuts % (Manual) Seg Neutrophils # Seg Neutrophils # Man Monocytes # (Manual) ABG pH ABG pO2 ABG HCO3 ABG O2 Saturation ABG Base Excess ABG Hemoglobin Oxyhemoglobin Sodium 130 L Chloride 87.4 L Carbon Dioxide BUN 47 H Creatinine 2.4 H Glucose 138 H POC Glucose 135 H Hemoglobin A1c Calcium 10.8 H Phosphorus NT-Pro-B Natriuret Pep Albumin 07/11/19 07/11/19 07/11/19 12:28 18:05 23:49 WBC RBC Hgb Hct RDW Plt Count Lymph % (Auto) [place] % (Auto) [place] # Seg Neutrophils % Seg Neuts % (Manual) Seg Neutrophils # Seg Neutrophils # Man Monocytes # (Manual) ABG pH ABG pO2 ABG HCO3 ABG O2 Saturation ABG Base Excess ABG Hemoglobin Oxyhemoglobin Sodium Chloride Carbon Dioxide BUN Creatinine Glucose POC Glucose 243 H 177 H 163 H Hemoglobin A1c Calcium Phosphorus NT-Pro-B Natriuret Pep Albumin 07/12/19 07/12/19 07/12/19 05:27 05:43 05:43 WBC 15.0 H RBC Hgb Hct RDW 17.5 H Plt Count Lymph % (Auto) [place] % (Auto) [place] # Seg Neutrophils % Seg Neuts % (Manual) Seg Neutrophils # Seg Neutrophils # Man Monocytes # (Manual) ABG pH ABG pO2 ABG HCO3 ABG O2 Saturation ABG Base Excess ABG Hemoglobin Oxyhemoglobin Sodium 128 L Chloride 85.7 L Carbon Dioxide BUN 76 H Creatinine 3.8 H D Glucose 157 H POC Glucose 156 H Hemoglobin A1c Calcium 10.8 H Phosphorus NT-Pro-B Natriuret Pep Albumin 07/12/19 07/12/19 07/13/19 12:03 18:30 00:03 WBC RBC Hgb Hct RDW Plt Count Lymph % (Auto) [place] % (Auto) [place] # Seg Neutrophils % Seg Neuts % (Manual) Seg Neutrophils # Seg Neutrophils # Man Monocytes # (Manual) ABG pH ABG pO2 ABG HCO3 ABG O2 Saturation ABG Base Excess ABG Hemoglobin Oxyhemoglobin Sodium Chloride Carbon Dioxide BUN Creatinine Glucose POC Glucose 162 H 183 H 187 H Hemoglobin A1c Calcium Phosphorus NT-Pro-B Natriuret Pep Albumin 07/13/19 07/13/19 07/13/19 05:50 05:56 07:50 WBC 13.5 H RBC 3.37 L Hgb 9.6 L Hct 28.8 L RDW 17.4 H Plt Count Lymph % (Auto) [place] % (Auto) [place] # Seg Neutrophils % Seg Neuts % (Manual) Seg Neutrophils # Seg Neutrophils # Man Monocytes # (Manual) ABG pH ABG pO2 110.8 H ABG HCO3 27.5 H ABG O2 Saturation ABG Base Excess ABG Hemoglobin 10.0 L Oxyhemoglobin Sodium Chloride Carbon Dioxide BUN Creatinine Glucose POC Glucose 216 H Hemoglobin A1c Calcium Phosphorus NT-Pro-B Natriuret Pep Albumin 07/13/19 07/13/19 07/13/19 07:50 13:18 18:09 WBC RBC Hgb Hct RDW Plt Count Lymph % (Auto) [place] % (Auto) [place] # Seg Neutrophils % Seg Neuts % (Manual) Seg Neutrophils # Seg Neutrophils # Man Monocytes # (Manual) ABG pH ABG pO2 ABG HCO3 ABG O2 Saturation ABG Base Excess ABG Hemoglobin Oxyhemoglobin Sodium 126 L Chloride 80.8 L Carbon Dioxide 21 L BUN 105 H Creatinine 4.7 H Glucose 215 H POC Glucose 187 H 202 H Hemoglobin A1c Calcium 10.3 H Phosphorus NT-Pro-B Natriuret Pep Albumin 07/13/19 07/13/19 07/14/19 19:44 23:23 04:17 WBC RBC Hgb Hct RDW 17.5 H Plt Count Lymph % (Auto) [place] % (Auto) [place] # Seg Neutrophils % Seg Neuts % (Manual) Seg Neutrophils # Seg Neutrophils # Man Monocytes # (Manual) ABG pH ABG pO2 ABG HCO3 ABG O2 Saturation ABG Base Excess ABG Hemoglobin Oxyhemoglobin Sodium 133 L D Chloride Carbon Dioxide BUN Creatinine Glucose POC Glucose 167 H Hemoglobin A1c Calcium Phosphorus NT-Pro-B Natriuret Pep Albumin 07/14/19 07/14/19 07/14/19 04:17 05:03 12:12 WBC RBC Hgb Hct RDW Plt Count Lymph % (Auto) [place] % (Auto) [place] # Seg Neutrophils % Seg Neuts % (Manual) Seg Neutrophils # Seg Neutrophils # Man Monocytes # (Manual) ABG pH ABG pO2 ABG HCO3 ABG O2 Saturation ABG Base Excess ABG Hemoglobin Oxyhemoglobin Sodium 131 L Chloride 88.8 L Carbon Dioxide BUN 47 H Creatinine 2.6 H Glucose 131 H POC Glucose 142 H 246 H Hemoglobin A1c Calcium Phosphorus NT-Pro-B Natriuret Pep Albumin 07/14/19 07/15/19 07/15/19 18:30 00:35 04:51 WBC RBC 3.51 L Hgb 9.9 L Hct 30.0 L RDW 17.6 H Plt Count 510 H Lymph % (Auto) [place] % (Auto) [place] # Seg Neutrophils % 72.4 H Seg Neuts % (Manual) Seg Neutrophils # Seg Neutrophils # Man Monocytes # (Manual) ABG pH ABG pO2 ABG HCO3 ABG O2 Saturation ABG Base Excess ABG Hemoglobin Oxyhemoglobin Sodium Chloride Carbon Dioxide BUN Creatinine Glucose POC Glucose 114 H 164 H Hemoglobin A1c Calcium Phosphorus NT-Pro-B Natriuret Pep Albumin 07/15/19 07/15/19 04:51 06:21 WBC RBC Hgb Hct RDW Plt Count Lymph % (Auto) [place] % (Auto) [place] # Seg Neutrophils % Seg Neuts % (Manual) Seg Neutrophils # Seg Neutrophils # Man Monocytes # (Manual) ABG pH ABG pO2 ABG HCO3 ABG O2 Saturation ABG Base Excess ABG Hemoglobin Oxyhemoglobin Sodium 134 L Chloride 88.7 L Carbon Dioxide BUN 78 H Creatinine 4.0 H D Glucose 141 H POC Glucose 135 H Hemoglobin A1c Calcium 10.4 H Phosphorus NT-Pro-B Natriuret Pep Albumin Allied health notes reviewed: nursing
[2019-07-15] MEDS: METOCLOPRAMIDE 10 MG/2 ML INJ IV SCH ×2 (10:08→10:31)
[2019-07-15] MEDS: FAMOTIDINE 20 MG TAB PO SCH (10:08)
[2019-07-15] MEDS: INSULIN GLARGINE 100 UNITS/ML SUB-Q SCH (10:09)
[2019-07-15] MEDS: HEPARIN 5,000 UNIT/1 ML VIAL SUB-Q SCH ×2 (10:09→21:24)
[2019-07-15] MEDS: DOCUSATE SODIUM 100 MG/10 ML ORAL LIQD FEEDTUBE SCH ×2 (10:30→21:24)
--- NOTE | 2019-07-15 12:05 | Progress Note ---
Assessment and Plan Assessment and plan: Sepsis Source is unclear. Etiology may be secondary to pneumonia versus minimal cellulitis around sacral decubitus. If WBC worsens, consider CT chest, abdomen and pelvis with IV contrast. -Continue empiric antibiotics per infectious disease Acute hypoxic respiratory failure -Continue mechanical ventilation per pulmonary. -Etiology secondary to CHF versus pneumonia. Toxic metabolic encephalopathy -Neuro checks -Continue to treat underlying causes. ESRD on HD -M/W/F -Avoid nephrotoxic agents -Renal dose all meds -Nephrology following Congestive heart Failure -BNP >33571 on admission -Monitor input and output. -Cardiology following and reported no evidence of volume overload Hypertension -Continue to monitor BP -Patient is normotensive off blood pressure medications. Insulin-dependent diabetes -POC BG monitoring -SSI coverage prn Hx Seizure -Continue anticonvulsant meds -Seizure precautions. Sacral decubitus ulcer CT non contrasted without evidence of fluid collection or osteomyelitis. DVT PPX -On Heparin The high probability of a clinically significant, sudden or life threatening deterioration of the [respiratory] system(s) required my full and direct attention, intervention and personal management. The aggregate critical care time was [32] minutes. This time is in addition to time spent performing reporte d procedures but includes the following: [x] Data Review and interpretation [x] Patient assessment and monitoring of vital signs [x] Documentation [x] Medication orders and management History Interval history: Patient remains orally intubated Hospitalist Physical - Constitutional Vitals: Temp Pulse Resp BP Pulse Ox 98.8 F 73 23 131/66 100 07/15/19 10:15 07/15/19 11:45 07/15/19 10:15 07/15/19 11:45 07/15/19 10:15 General appearance: Present: other (intubated on the vent) - EENT Eyes: Present: PERRL, EOM intact ENT: hearing intact, clear oral mucosa, dentition normal - Neck Neck: Present: supple, normal ROM - Respiratory Respiratory effort: normal Respiratory: bilateral: CTA - Cardiovascular Rhythm: regular Heart Sounds: Present: S1 & S2. Absent: gallop, rub - Extremities Extremities: no ischemia, No edema, Full ROM - Abdominal General gastrointestinal: soft, non-tender, non-distended, normal bowel sounds - Integumentary Integumentary: Present: clear, warm, dry - Neurologic Neurologic: CNII-XII intact, moves all extremities MATT score - Matt Score Age > 65: (0) No Aspirin use within the Past 7 Days: (0) No 3 or more CAD Risk Factors: (1) Yes 2 or more Angina events in past 24 hrs: (0) No Known CAD with more than 50% Stenosis: (0) No Elevated Cardiac Markers: (1) Yes ST Deviation Greater than 0.5mm: (0) No MATT Score: 2 Results - Labs CBC & Chem 7: 07/15/19 04:51 07/15/19 04:51 Labs: Laboratory Last Values WBC 9.8 K/mm3 (4.5-11.0) 07/15/19 04:51 RBC 3.51 M/mm3 (3.65-5.03) L 07/15/19 04:51 Hgb 9.9 gm/dl (10.1-14.3) L 07/15/19 04:51 Hct 30.0 % (30.3-42.9) L 07/15/19 04:51 MCV 86 fl (79-97) 07/15/19 04:51 MCH 28 pg (28-32) 07/15/19 04:51 MCHC 33 % (30-34) 07/15/19 04:51 RDW 17.6 % (13.2-15.2) H 07/15/19 04:51 Plt Count 510 K/mm3 (140-440) H 07/15/19 04:51 Lymph % (Auto) 17.3 % (13.4-35.0) 07/15/19 04:51 [place] % (Auto) 7.3 % (0.0-7.3) 07/15/19 04:51 Eos % (Auto) 2.6 % (0.0-4.3) 07/15/19 04:51 Baso % (Auto) 0.4 % (0.0-1.8) 07/15/19 04:51 Lymph # 1.7 K/mm3 (1.2-5.4) 07/15/19 04:51 [place] # 0.7 K/mm3 (0.0-0.8) 07/15/19 04:51 Eos # 0.3 K/mm3 (0.0-0.4) 07/15/19 04:51 Baso # 0.0 K/mm3 (0.0-0.1) 07/15/19 04:51 Add Manual Diff Complete 07/10/19 04:55 Total Counted 100 07/10/19 04:55 Seg Neutrophils % 72.4 % (40.0-70.0) H 07/15/19 04:51 Seg Neuts % (Manual) 81.0 % (40.0-70.0) H 07/10/19 04:55 Band Neutrophils % 0 % 07/10/19 04:55 Lymphocytes % (Manual) 14.0 % (13.4-35.0) 07/10/19 04:55 Reactive Lymphs % (Man) 0 % 07/10/19 04:55 Monocytes % (Manual) 4.0 % (0.0-7.3) 07/10/19 04:55 Eosinophils % (Manual) 0 % (0.0-4.3) 07/10/19 04:55 Basophils % (Manual) 0 % (0.0-1.8) 07/10/19 04:55 Metamyelocytes % 1.0 % 07/10/19 04:55 Myelocytes % 0 % 07/10/19 04:55 Promyelocytes % 0 % 07/10/19 04:55 Blast Cells % 0 % 07/10/19 04:55 Nucleated RBC % Not Reportable 07/10/19 04:55 Seg Neutrophils # 7.1 K/mm3 (1.8-7.7) 07/15/19 04:51 Seg Neutrophils # Man 19.4 K/mm3 (1.8-7.7) H 07/10/19 04:55 Band Neutrophils # 0.0 K/mm3 07/10/19 04:55 Lymphocytes # (Manual) 3.3 K/mm3 (1.2-5.4) 07/10/19 04:55 Abs React Lymphs (Man) 0.0 K/mm3 07/10/19 04:55 Monocytes # (Manual) 1.0 K/mm3 (0.0-0.8) H 07/10/19 04:55 Eosinophils # (Manual) 0.0 K/mm3 (0.0-0.4) 07/10/19 04:55 Basophils # (Manual) 0.0 K/mm3 (0.0-0.1) 07/10/19 04:55 Metamyelocytes # 0.2 K/mm3 07/10/19 04:55 Myelocytes # 0.0 K/mm3 07/10/19 04:55 Promyelocytes # 0.0 K/mm3 07/10/19 04:55 Blast Cells # 0.0 K/mm3 07/10/19 04:55 WBC Morphology Not Reportable 07/10/19 04:55 Hypersegmented Neuts Not Reportable 07/10/19 04:55 Hyposegmented Neuts Not Reportable 07/10/19 04:55 Hypogranular Neuts Not Reportable 07/10/19 04:55 Smudge Cells Not Reportable 07/10/19 04:55 Toxic Granulation Not Reportable 07/10/19 04:55 Toxic Vacuolation Not Reportable 07/10/19 04:55 Dohle Bodies Not Reportable 07/10/19 04:55 Pelger-Huet Anomaly Not Reportable 07/10/19 04:55 Andrei Rods Not Reportable 07/10/19 04:55 Platelet Estimate Consistent w auto 07/10/19 04:55 Clumped Platelets Not Reportable 07/10/19 04:55 Plt Clumps, EDTA Not Reportable 07/10/19 04:55 Large Platelets Not Reportable 07/10/19 04:55 Giant Platelets Not Reportable 07/10/19 04:55 Platelet Satelliting Not Reportable 07/10/19 04:55 Plt Morphology Comment Not Reportable 07/10/19 04:55 RBC Morphology Not Reportable 07/10/19 04:55 Dimorphic RBCs Not Reportable 07/10/19 04:55 Polychromasia Not Reportable 07/10/19 04:55 Hypochromasia Not Reportable 07/10/19 04:55 Poikilocytosis Not Reportable 07/10/19 04:55 Anisocytosis Not Reportable 07/10/19 04:55 Microcytosis Not Reportable 07/10/19 04:55 Macrocytosis Not Reportable 07/10/19 04:55 Spherocytes Not Reportable 07/10/19 04:55 Pappenheimer Bodies Not Reportable 07/10/19 04:55 Sickle Cells Not Reportable 07/10/19 04:55 Target Cells Not Reportable 07/10/19 04:55 Tear Drop Cells Not Reportable 07/10/19 04:55 Ovalocytes Not Reportable 07/10/19 04:55 Helmet Cells Not Reportable 07/10/19 04:55 [place] Bodies Not Reportable 07/10/19 04:55 [place] Rings Not Reportable 07/10/19 04:55 [place] Cells Not Reportable 07/10/19 04:55 Bite Cells Not Reportable 07/10/19 04:55 Crenated Cell Not Reportable 07/10/19 04:55 Elliptocytes Not Reportable 07/10/19 04:55 Acanthocytes (Spur) Not Reportable 07/10/19 04:55 Rouleaux Not Reportable 07/10/19 04:55 Hemoglobin C Crystals Not Reportable 07/10/19 04:55 Schistocytes Rare 07/10/19 04:55 Malaria parasites Not Reportable 07/10/19 04:55 Tristen Bodies Not Reportable 07/10/19 04:55 Hem Pathologist Commnt No 07/10/19 04:55 ABG pH 7.425 pH Units (7.350-7.450) 07/13/19 05:50 ABG pCO2 42.9 mm Hg 07/13/19 05:50 ABG pO2 110.8 mm Hg (80.0-90.0) H 07/13/19 05:50 ABG HCO3 27.5 mmol/L (20.0-26.0) H 07/13/19 05:50 ABG O2 Saturation 98.0 % (95.0-99.0) 07/13/19 05:50 ABG O2 Content 13.7 (0.0-44) 07/13/19 05:50 ABG Base Excess 2.8 mmol/L (-2.0-3.0) 07/13/19 05:50 ABG Hemoglobin 10.0 gm/dl (12.0-16.0) L 07/13/19 05:50 ABG Carboxyhemoglobin 1.4 % (0.0-5.0) 07/13/19 05:50 ABG Methemoglobin 0.5 % (0.0-1.5) 07/13/19 05:50 Oxyhemoglobin 96.2 % (95.0-99.0) 07/13/19 05:50 FiO2 40 % 07/13/19 05:50 Sodium 134 mmol/L (137-145) L 07/15/19 04:51 Potassium 4.6 mmol/L (3.6-5.0) 07/15/19 04:51 Chloride 88.7 mmol/L (98-107) L 07/15/19 04:51 Carbon Dioxide 23 mmol/L (22-30) 07/15/19 04:51 Anion Gap 27 mmol/L 07/15/19 04:51 BUN 78 mg/dL (7-17) H 07/15/19 04:51 Creatinine 4.0 mg/dL (0.7-1.2) H D 07/15/19 04:51 Estimated GFR 11 ml/min 07/15/19 04:51 BUN/Creatinine Ratio 20 % 07/15/19 04:51 Glucose 141 mg/dL (65-100) H 07/15/19 04:51 POC Glucose 172 (70-105) H 07/15/19 11:55 Hemoglobin A1c 7.0 % (4-6) H 07/03/19 01:00 Lactic Acid 1.20 mmol/L (0.7-2.0) 07/03/19 04:13 Calcium 10.4 mg/dL (8.4-10.2) H 07/15/19 04:51 Phosphorus 2.60 mg/dL (2.5-4.5) D 07/09/19 04:29 Total Bilirubin 0.30 mg/dL (0.1-1.2) 07/03/19 01:00 AST 22 units/L (5-40) 07/03/19 01:00 ALT 9 units/L (7-56) 07/03/19 01:00 Alkaline Phosphatase 101 units/L (35-129) 07/03/19 01:00 Ammonia 35.0 umol/L (25-60) 07/03/19 01:58 NT-Pro-B Natriuret Pep > 77526 pg/mL (0-900) H 07/03/19 01:00 Total Protein 7.0 g/dL (6.3-8.2) 07/03/19 01:00 Albumin 2.5 g/dL (3.9-5) L 07/03/19 01:00 Albumin/Globulin Ratio 0.6 % 07/03/19 01:00 TSH 2.600 mlU/mL (0.270-4.200) 07/03/19 01:00 Urine Color Yellow (Yellow) 07/03/19 Unknown Urine Turbidity Clear (Clear) 07/03/19 Unknown Urine pH 6.0 (5.0-7.0) 07/03/19 Unknown Ur Specific [place] 1.012 (1.003-1.030) 07/03/19 Unknown Urine Protein >500 mg/dL (Negative) 07/03/19 Unknown Urine Glucose (UA) >=500 mg/dL (Negative) 07/03/19 Unknown Urine Ketones Neg mg/dL (Negative) 07/03/19 Unknown Urine Blood Neg (Negative) 07/03/19 Unknown Urine Nitrite Neg (Negative) 07/03/19 Unknown Ur Reducing Substances Not Reportable 07/03/19 Unknown Urine Bilirubin Neg (Negative) 07/03/19 Unknown Urine Ictotest Not Reportable 07/03/19 Unknown Urine Urobilinogen < 2.0 mg/dL (<2.0) 07/03/19 Unknown Ur Leukocyte Esterase Neg (Negative) 07/03/19 Unknown Urine WBC (Auto) 1.0 /HPF (0.0-6.0) 07/03/19 Unknown Urine RBC (Auto) 2.0 /HPF (0.0-6.0) 07/03/19 Unknown U Epithel Cells (Auto) < 1.0 /HPF (0-13.0) 07/03/19 Unknown Urine Mucus Few /HPF 07/03/19 Unknown Random Vancomycin 18.7 ug/mL (0-40.0) 07/08/19 04:38 Influenza A (Rapid) Negative (Negative) 07/05/19 14:30 Influenza B (Rapid) Negative (Negative) 07/05/19 14:30 Active Medications - Current Medications Current Medications: Generic Name Dose Route Start Last Admin Trade Name Freq PRN Reason Stop Dose Admin Acetaminophen 650 mg 07/08/19 10:00 Tylenol ND Q4H PRN Pain, Mild (1-3) Albumin Human 25 gm 07/06/19 13:42 07/08/19 11:59 Alburx 25% (Albumin) IV 25 gm FEDE PRN Administration Hypotension Lipase/Protease/Amylase 1 each 07/05/19 16:[address] 10,500 Unit FEEDTUBE PRN PRN For Clogged Feeding Tube Dextrose 0 ml 07/03/19 04:34 D50w (25gm) Syringe IV Q30MIN PRN Hypoglycemia Protocol Docusate Sodium 100 mg 07/15/19 10:00 07/15/19 10:30 Colace FEEDTUBE 100 mg BID YANG Administration Famotidine 20 mg 07/07/19 10:00 07/15/19 10:08 Pepcid PO 20 mg DAILY YANG Administration Heparin Sodium (Porcine) 5,000 unit 07/03/19 10:00 07/15/19 10:09 Heparin SUB-Q 5,000 unit Q12HR YANG Administration Hydrophilic Ointment 1 applic 07/03/19 00:53 Vaseline Lip Therapy TP Q2HR PRN Dry Lips Fentanyl Citrate 2,000 mcg in 100 mls @ 2.608 mls/hr 07/03/19 01:00 07/04/19 18:10 Fentanyl Drip Premix IV Infused TITR YANG Titration Protocol 1 MCG/KG/HR Sodium Chloride 100 mls @ 999 mls/hr 07/05/19 13:41 Nacl 0.9% IV FEDE PRN Hypotension Insulin Glargine 18 units 07/10/19 13:43 07/15/19 10:09 Lantus SUB-Q 18 units DAILY YANG Administration Insulin Human Lispro 0 unit 07/03/19 06:00 07/15/19 06:53 Humalog SUB-Q Not Given Q6HR [facility] Protocol Multi-Ingred Cream/Lotion/Oil/Oint 1 applic 07/03/19 00:53 Artificial Tears Ophth Oint OU Q4HR PRN Dry Eye(s) Simple Syrup 15 ml 07/05/19 16:27 Simple Syrup FEEDTUBE PRN PRN Hypoglycemia Simple Syrup 30 ml 07/05/19 16:27 Simple Syrup FEEDTUBE PRN PRN Hypoglycemia Sodium Bicarbonate 325 mg 07/05/19 16:27 Sodium Bicarbonate FEEDTUBE PRN PRN For Clogged Feeding Tube Sodium Chloride 10 ml 07/03/19 10:00 07/15/19 10:10 Sodium Chloride Flush Syringe 10 Ml IV 10 ml BID YANG Administration Sodium Chloride 10 ml 07/03/19 04:34 07/05/19 10:42 Sodium Chloride Flush Syringe 10 Ml IV 10 ml PRN PRN Administration LINE FLUSH Nutrition/Malnutrition Assess - Dietary Evaluation Nutrition/Malnutrition Findings: Nutrition Notes Start: 07/06/19 08:50 Freq: Status: Active Protocol: Document 07/14/19 11:50 MK (Rec: 07/14/19 11:59 MK [id number]) Co-Sign 07/14/19 11:50 LP Nutrition Notes Initial or Follow up Reassessment Current Diagnosis CKD (stage V CKD),Decubitus( Pressure Ulcer),Diabetes,Heart Failure,Respiratory Failure Other Pertinent Diagnosis on HD, Sacral PU, seizures, bipolar disorder, metabolic encephalopathy Current Diet Nepro 1.8 at 35 ml/hr Labs/Tests Na 131 BUN 47 Cr 2.6 Pertinent Medications Lantus Heparin Height 5 ft 2 in Weight 50.3 kg [place] Body Weight (kg) 50.00 BMI 20.2 Weight change and time frame wt gain noted with renal Weight Status Appropriate Subjective/Other Information FU for tolerance and wt. Nepro 1.8 running at 35ml/hr. Percent of energy/protein needs met: 100%/100% Burn Absent Trauma Absent GI Symptoms None Current % PO Negligible Minimum of two criteria No physical signs of malnutrition #2 Nutrition Diagnosis Increased nutrient needs ( specify in comment below) Comments: Protein Diagnosis Progress(for reassessment Continues documentation) #1 Nutrition Diagnosis Inadequate oral intake Diagnosis Progress(for reassessment Continues documentation) Is patient on ventilator? Yes Is Patient Ambulatory and/or Out of Bed No REE-([facility]-confined to bed) [phone] Calculation Used for Recommendations [facility] Additional Notes Protein: 58 -96g (1.2-2g/kg) Fluid: 1-1.5 L/ day Nutrition Intervention Change Diet Order: TF Nutrition Support: Nepro 1.8 at 35ml/hr Change flush to 100 ml q4h. Kcal 1,512 Protein (gm) 68 Fluid (mL) 611 Goal #1 TF tolerance Goal #2 Wound healing Anticipated Discharge Needs: unable to determine at this time Follow-Up By: 07/21/19 Additional Comments F/U for TF tolerance.
--- NOTE | 2019-07-15 13:41 | Progress Note ---
Assessment and Plan Acute hypoxic respiratory failure on mechanical ventilation Acute metabolic encephalopathy ESRD on HD HTN Sepsis Hx of seizures DM Type 2 on insulin Hypercalemia Hyponatremia Plan: - HD today for UF and clearance - Assess dialysis needs daily - Epogen dosing for anemia management as needed - Currently Intubated on Vent - as per Pulmonology - Strict I&O - Renally dose meds - This pt undergoes outpatient HD at [facility] every MWF - Renal plan d/w Dr Wray Subjective Principal diagnosis: Acute hypoxemic resp failure; AMS; Severe Sepsis; ESRD; CHF; HTN; Seizure Interval history: Pt seen in ICU, intubated, arouses to verbal stimuli, no family at bedside Objective - Vital Signs Vital signs: Vital Signs - 12hr 07/15/19 07/15/19 07/15/19 02:00 03:00 03:17 Temperature Pulse Rate 78 82 76 Pulse Rate [ From Monitor] Respiratory 12 14 Rate Respiratory Rate [Bilateral Leg] Blood Pressure 152/68 151/65 151/65 O2 Sat by Pulse 100 100 100 Oximetry O2 Sat by Pulse Oximetry [ Anterior Bilateral Throughout] 07/15/19 07/15/19 07/15/19 04:00 05:00 06:00 Temperature 98.7 F Pulse Rate 73 79 77 Pulse Rate [ 75 From Monitor] Respiratory 12 15 14 Rate Respiratory Rate [Bilateral Leg] Blood Pressure 138/62 137/63 154/61 O2 Sat by Pulse 100 99 100 Oximetry O2 Sat by Pulse Oximetry [ Anterior Bilateral Throughout] 07/15/19 07/15/19 07/15/19 07:00 08:00 08:25 Temperature 97.5 F L Pulse Rate 75 77 77 Pulse Rate [ 76 From Monitor] Respiratory 13 18 12 Rate Respiratory Rate [Bilateral Leg] Blood Pressure 143/68 152/68 154/61 O2 Sat by Pulse 100 100 100 Oximetry O2 Sat by Pulse Oximetry [ Anterior Bilateral Throughout] 07/15/19 07/15/19 07/15/19 09:00 10:00 10:15 Temperature 98.8 F Pulse Rate 69 75 74 Pulse Rate [ From Monitor] Respiratory 22 22 23 Rate Respiratory 13 Rate [Bilateral Leg] Blood Pressure 152/68 148/64 142/66 O2 Sat by Pulse 100 100 Oximetry O2 Sat by Pulse 100 Oximetry [ Anterior Bilateral Throughout] 07/15/19 07/15/19 07/15/19 11:00 11:15 11:30 Temperature Pulse Rate 71 69 71 Pulse Rate [ From Monitor] Respiratory Rate Respiratory Rate [Bilateral Leg] Blood Pressure 142/65 138/65 141/66 O2 Sat by Pulse Oximetry O2 Sat by Pulse Oximetry [ Anterior Bilateral Throughout] 07/15/19 07/15/19 07/15/19 11:45 12:00 12:15 Temperature 98.8 F Pulse Rate 73 73 72 Pulse Rate [ 75 From Monitor] Respiratory 19 Rate Respiratory Rate [Bilateral Leg] Blood Pressure 131/66 140/66 149/66 O2 Sat by Pulse 100 Oximetry O2 Sat by Pulse Oximetry [ Anterior Bilateral Throughout] 07/15/19 07/15/19 07/15/19 12:30 12:45 13:00 Temperature Pulse Rate 72 71 71 Pulse Rate [ From Monitor] Respiratory 14 Rate Respiratory Rate [Bilateral Leg] Blood Pressure 145/65 145/64 145/64 O2 Sat by Pulse 100 Oximetry O2 Sat by Pulse Oximetry [ Anterior Bilateral Throughout] 07/15/19 13:15 Temperature Pulse Rate 71 Pulse Rate [ From Monitor] Respiratory Rate Respiratory Rate [Bilateral Leg] Blood Pressure 141/66 O2 Sat by Pulse Oximetry O2 Sat by Pulse Oximetry [ Anterior Bilateral Throughout] - General Appearance General appearance: intubated EENT: ATNC Neck: no JVD Respiratory: Present: Decreased Breath Sounds (intubated) Cardiology: S1S2, other (ACCESS: Left AVF in use) Gastrointestinal: normoactive bowel sounds (Dobhoff tube in place) Integumentary: warm and dry Neurologic: other (intubated, opens eyes) Musculoskeletal: other (no edema to BLE) Psychiatric: other (unable to assess) - Lab 07/15/19 04:51 07/15/19 04:51 Most recent lab results ABG pH 7.425 pH Units (7.350-7.450) 07/13/19 05:50 ABG pCO2 42.9 mm Hg 07/13/19 05:50 ABG pO2 110.8 mm Hg (80.0-90.0) H 07/13/19 05:50 ABG HCO3 27.5 mmol/L (20.0-26.0) H 07/13/19 05:50 ABG O2 Saturation 98.0 % (95.0-99.0) 07/13/19 05:50 Calcium 10.4 mg/dL (8.4-10.2) H 07/15/19 04:51 Phosphorus 2.60 mg/dL (2.5-4.5) D 07/09/19 04:29 Medications & Allergies - Medications Allergies/Adverse Reactions: Allergies No Known Allergies Allergy (Verified 07/03/19 10:58) Home Medications: Home Medications Medication Instructions Recorded Confirmed Last Taken Type Amlodipine Besylate [Norvasc] 10 mg PO DAILY 06/24/19 07/04/19 Unknown History AtorvaSTATin [Lipitor] 20 mg PO QHS 06/24/19 07/04/19 Unknown History Bumetanide 1 mg PO DAILY 06/24/19 07/04/19 Unknown History Cinacalcet HCl 30 mg PO DAILY 06/24/19 07/04/19 Unknown History Divalproex Sodium [Depakote 500 mg PO BID 06/24/19 07/04/19 Unknown History Sprinkle] Lispro Insulin [HumaLOG] 0 - 200 unit SQ ACHS 06/24/19 07/04/19 Unknown History Vit B Comp No.3/Folic/C/Biotin 1 each PO DAILY 06/24/19 07/04/19 Unknown History [Nephro-Umu Rx Tablet] carvediloL [Coreg] 25 mg PO BID 06/24/19 07/04/19 Unknown History hydrALAZINE [Apresoline TAB] 50 mg PO Q8HR 06/24/19 07/04/19 Unknown History ALBUTEROL NEB's [Proventil 0.083% 2.5 mg IH TIDRT #30 nebu 06/30/19 07/04/19 Unknown Rx NEBS] Lactulose [Cephulac] 20 gm PO Q8HR oral.liqd 06/30/19 07/04/19 Unknown Rx Sevelamer Carbonate [Renvela] 800 mg PO TIDWM tablet 06/30/19 07/04/19 Unknown Rx risperiDONE [RisperDAL] 0.5 mg PO BID tablet 06/30/19 07/04/19 Unknown Rx Active Medications: Generic Name Dose Route Start Last Admin Trade Name Freq PRN Reason Stop Dose Admin Acetaminophen 650 mg 07/08/19 10:00 Tylenol [place] Q4H PRN Pain, Mild (1-3) Albumin Human 25 gm 07/06/19 13:42 07/08/19 11:59 Alburx 25% (Albumin) IV 25 gm FEDE PRN Administration Hypotension Lipase/Protease/Amylase 1 each 07/05/19 16:27 Pancreaze 10,500 Unit FEEDTUBE PRN PRN For Clogged Feeding Tube Dextrose 0 ml 07/03/19 04:34 D50w (25gm) Syringe IV Q30MIN PRN Hypoglycemia Protocol Docusate Sodium 100 mg 07/15/19 10:00 07/15/19 10:30 Colace FEEDTUBE 100 mg BID YANG Administration Famotidine 20 mg 07/07/19 10:00 07/15/19 10:08 Pepcid PO 20 mg DAILY YANG Administration Heparin Sodium (Porcine) 5,000 unit 07/03/19 10:00 07/15/19 10:09 Heparin SUB-Q 5,000 unit Q12HR YANG Administration Hydrophilic Ointment 1 applic 07/03/19 00:53 Vaseline Lip Therapy TP Q2HR PRN Dry Lips Fentanyl Citrate 2,000 mcg in 100 mls @ 2.608 mls/hr 07/03/19 01:00 07/04/19 18:10 Fentanyl Drip Premix IV Infused TITR YANG Titration Protocol 1 MCG/KG/HR Sodium Chloride 100 mls @ 999 mls/hr 07/05/19 13:41 Nacl 0.9% IV FEDE PRN Hypotension Insulin Glargine 18 units 07/10/19 13:43 07/15/19 10:09 Lantus SUB-Q 18 units DAILY YANG Administration Insulin Human Lispro 0 unit 07/03/19 06:00 07/15/19 12:44 Humalog SUB-Q 3 unit Q6HR YANG Administration Protocol Multi-Ingred Cream/Lotion/Oil/Oint 1 applic 07/03/19 00:53 Artificial Tears Ophth Oint OU Q4HR PRN Dry Eye(s) Simple Syrup 15 ml 07/05/19 16:27 Simple Syrup FEEDTUBE PRN PRN Hypoglycemia Simple Syrup 30 ml 07/05/19 16:27 Simple Syrup FEEDTUBE PRN PRN Hypoglycemia Sodium Bicarbonate 325 mg 07/05/19 16:27 Sodium Bicarbonate FEEDTUBE PRN PRN For Clogged Feeding Tube Sodium Chloride 10 ml 07/03/19 10:00 07/15/19 10:10 Sodium Chloride Flush Syringe 10 Ml IV 10 ml BID YANG Administration Sodium Chloride 10 ml 07/03/19 04:34 07/05/19 10:42 Sodium Chloride Flush Syringe 10 Ml IV 10 ml PRN PRN Administration LINE FLUSH
--- NOTE | 2019-07-15 14:54 | Progress Note ---
Assessment and Plan Cultures: 07/03/2019 blood culture: No growth 07/03/2019 tracheal aspirate culture: Usual respiratory leelee A/P: 59 yo F with ESRD on HD, diabetes, HTN, CHF, seizure, bipolar, depression and was recently hospitalized with altered mental status and found to have leukocytosis, now readmitted with respiratory distress and hypoxia: #Neutrophilic leukocytosis: source unclear. ?pneumonia, minimal cellulitis around sacral decubitus. Cultures negative. On empiric Meropenem given recent hospitalization and exposure to antibiotics. Worse today. atient opens eyes, follows commands. No other concerns per discussion with RN. No significant respiratory secretions per RT. Improving. #Acute respiratory failure: on the vent. CHF v/s pneumonia. #ESRD on HD: renally dose abx. #Sacral decubitus ulcer: wound care. CT non contrasted without evidence of fluid collection or osteomyelitis. #Acute encephalopathy: CT head on admission was unremarkable for acute process. Recs: Off antibiotics now wound care to sacral wound Thank you for the consult, will sign off. please call with questions. Kenneth Lazo MD [facility] M: [phone] O: [phone] F: [phone] Subjective Date of service: 07/15/19 Principal diagnosis: Acute hypoxemic resp failure; AMS; Severe Sepsis; ESRD; CHF; HTN; Seizure Interval history: Afebrile, white count now normal. No issues. Objective - Exam Narrative Exam: Constitutional: opens eyes, follows commands, intubated Head, Ears, Nose: Normocephalic, atraumatic. External ears, nose normal Eyes: Conjunctivae/corneas clear. Neck: intubated Oral: intubated Cardiovascular: S1, S2 normal. Respiratory: Good air entry, clear to auscultation bilaterally GI: Soft, non-tender; bowel sounds normal. No peritoneal signs. Musculoskeletal: No pedal edema, no cyanosis. Left forearm AVF Skin: Sacral decubitus with dressing Hem/Lymphatic: No palpable cervical or supraclavicular nodes. No lymphangitis Psych: no agitation Neurological: opens eyes, follows commands , intubated, on vent - Constitutional Vitals: Vital Signs Temp Pulse Resp BP Pulse Ox 98.8 F 75 17 140/66 100 07/15/19 12:00 07/15/19 14:45 07/15/19 14:00 07/15/19 14:45 07/15/19 14:00 Temperature -Last 24 Hours Temperature 98.8 F Temperature 98.8 F Temperature 97.5 F Temperature 98.7 F Temperature 99.2 F Temperature 98.1 F Temperature 97.7 F - Labs CBC & Chem 7: 07/15/19 04:51 07/15/19 04:51 Labs: Abnormal lab results 07/14/19 07/15/19 07/15/19 Range/Units 18:30 00:35 04:51 RBC 3.51 L (3.65-5.03) M/mm3 Hgb 9.9 L (10.1-14.3) gm/dl Hct 30.0 L (30.3-42.9) % RDW 17.6 H (13.2-15.2) % Plt Count 510 H (140-440) K/mm3 Seg Neutrophils % 72.4 H (40.0-70.0) % Sodium (137-145) mmol/L Chloride (98-107) mmol/L BUN (7-17) mg/dL Creatinine (0.7-1.2) mg/dL Glucose (65-100) mg/dL POC Glucose 114 H 164 H (70-105) Calcium (8.4-10.2) mg/dL 07/15/19 07/15/19 07/15/19 Range/Units 04:51 06:21 11:55 RBC (3.65-5.03) M/mm3 Hgb (10.1-14.3) gm/dl Hct (30.3-42.9) % RDW (13.2-15.2) % Plt Count (140-440) K/mm3 Seg Neutrophils % (40.0-70.0) % Sodium 134 L (137-145) mmol/L Chloride 88.7 L (98-107) mmol/L BUN 78 H (7-17) mg/dL Creatinine 4.0 H D (0.7-1.2) mg/dL Glucose 141 H (65-100) mg/dL POC Glucose 135 H 172 H (70-105) Calcium 10.4 H (8.4-10.2) mg/dL
[2019-07-16 05:24] LABS: Basophils # (Auto) 0.1 K/mm3 (0.0-0.1); Basophils % (Auto) 0.9 % (0.0-1.8); Eosinophils # (Auto) 0.2 K/mm3 (0.0-0.4); Eosinophils % (Auto) 2.4 % (0.0-4.3); Hematocrit 31.8 % (30.3-42.9); Hemoglobin 10.6 gm/dl (10.1-14.3); Lymphocytes # (Auto) 1.5 K/mm3 (1.2-5.4); Lymphocytes % (Auto) 16.8 % (13.4-35.0); Mean Corpuscular HGB Conc 33 % (30-34); Mean Corpuscular Volume 86 fl (79-97); Monocytes # (Auto) 0.7 K/mm3 (0.0-0.8); Monocytes % (Auto) 7.3 % (0.0-7.3); Platelet Count 605 K/mm3 (140-440); Red Blood Count 3.69 M/mm3 (3.65-5.03); Red Cell Distribution Width 17.5 % (13.2-15.2)
[2019-07-16 05:53] LABS: Calcium 10.5 mg/dL (8.4-10.2)
[2019-07-16] MEDS: INSULIN LISPRO 100 UNIT/ML SUB-Q SCH ×3 (06:08→22:56)
--- NOTE | 2019-07-16 07:52 | Progress Note ---
Assessment and Plan Acute hypoxemic respiratory failure on MVS Acute toxic metabolic encephalopathy Severe Sepsis-resolved ESRD on HD Congestive heart Failure Accelerated Hypertension H/O Seizure Mental status precludes safe extubation at this time. However her mental status continues to improve on a daily basis Continue daily PSV as tolerated. Intermittent IV analgesia for now Continue agitation management Will evaluate for possible trial of extubation. Continue all supportive care PT/OT - VAP bundle addressed (aspiration precautions, HOB>40 degrees) -Lung protective strategies -wean FiO2 for O2 sats >90% - continue bronchodilators with pulmonary hygiene per RT - Continue enteral nutrition - HD/UF per nephrology for toxin and volume clearance - conitue to monitor clinically, trend temperature curve and WCC - continue VTE prophylaxis with heparin SQ - continue stress ulcer prophylaxis with Famotidine - accuchecks with glycemic control for SSI (While critically ill target blood glucose of 140-180 mg/dL; avoid hypoglycemia) - continue mobility protocols and off loading for pressure ulcer prevention - Monitor hemodynamics closely - Fluid restrictive strategies as tolerated by hemodynamics and by her renal function - continue to avoid nephrotoxins, dose all medications for CrCL and GFR - Monitor electrolyte profile closely and replete as indicated - Chronic home medications, continue same - All other care per attending / other consultants CONDITION: CRITICAL PROGNOSIS: GUARDED CODE STATUS: FULL CODE The high probability of a clinically significant, sudden or life-threatening deterioration of the [respiratory, cardiovascular, neurology, renal] system(s) required my full and direct attention, intervention and personal management. The aggregate critical care time was [31] minutes without overlap. Time includes spent on; [x] Data Review and interpretation [x] Patient assessment and monitoring of vital signs [x] Documentation [x] Medication orders and management Subjective Date of service: 07/16/19 Principal diagnosis: Acute hypoxemic resp failure; AMS; Severe Sepsis; ESRD; CHF; HTN; Seizure Interval history: Patient is seen today for: Acute hypoxemic respiratory failure on MVS;Acute toxic metabolic encephalopathy;Severe Sepsis; ESRD on HD Seen and examined at bedside; 24hour events reviewed; nursing and respiratory care staff consulted; no adverse overnight events reported to me; Vitals, labs, medications, chart reviewed. No fevers overnight; no diarrhea, has constipation, spontaneous eye opening and obeying simple commands, HD yesterday, tolerated it well; Tolerating tube feedings with acceptable glycemic control, no vomiting. Remains critically ill, orally intubated on MVS, tolerating SBT Objective Vital Signs - 12hr 07/15/19 07/15/19 07/15/19 20:00 21:00 22:00 Temperature 98.0 F Pulse Rate 85 80 84 Pulse Rate [ 80 From Monitor] Respiratory 16 13 12 Rate Respiratory 13 Rate [Bilateral Leg] Blood Pressure 128/64 131/68 137/65 O2 Sat by Pulse 100 100 Oximetry 07/15/19 07/15/19 07/15/19 23:00 23:40 23:54 Temperature Pulse Rate 83 83 81 Pulse Rate [ From Monitor] Respiratory 13 16 Rate Respiratory Rate [Bilateral Leg] Blood Pressure 138/72 128/70 128/70 O2 Sat by Pulse 100 100 100 Oximetry 07/16/19 07/16/19 07/16/19 00:00 01:00 02:00 Temperature 99.0 F Pulse Rate 84 79 84 Pulse Rate [ 82 From Monitor] Respiratory 17 13 13 Rate Respiratory Rate [Bilateral Leg] Blood Pressure 146/77 117/65 126/66 O2 Sat by Pulse 100 100 100 Oximetry 07/16/19 07/16/19 07/16/19 03:00 04:00 04:33 Temperature 99.3 F Pulse Rate 83 80 78 Pulse Rate [ 81 From Monitor] Respiratory 13 13 Rate Respiratory Rate [Bilateral Leg] Blood Pressure 132/66 133/63 145/64 O2 Sat by Pulse 100 100 100 Oximetry 07/16/19 07/16/19 05:00 06:00 Temperature Pulse Rate 77 82 Pulse Rate [ From Monitor] Respiratory 13 13 Rate Respiratory Rate [Bilateral Leg] Blood Pressure 135/62 144/66 O2 Sat by Pulse 99 97 Oximetry Constitutional: no acute distress, other (middle aged thin female, normocephalic with mildly increased resp effort on MVS) Eyes: non-icteric ENT: oropharynx dry, other (ETT 23 cm JORY) Neck: supple, no lymphadenopathy, no JVD Effort: normal Ascultation: Bilateral: diminished breath sounds, rhonchi Percussion: Bilateral: not dull Cardiovascular: regular rate and rhythm Gastrointestinal: normoactive bowel sounds, soft, non-tender, non-distended Integumentary: normal, decubitus ulcer (sacral) Extremities: no cyanosis, no edema, pink and warm, pulses normal Neurologic: pupils equal and round, other (squeezes my had on command) Psychiatric: other (unable to assess re: AMS) CBC and BMP: 07/17/19 03:58 07/17/19 03:58 ABG, PT/INR, D-dimer: ABG ABG pH 7.425 pH Units (7.350-7.450) 07/13/19 05:50 ABG pCO2 42.9 mm Hg 07/13/19 05:50 ABG pO2 110.8 mm Hg (80.0-90.0) H 07/13/19 05:50 ABG O2 Saturation 98.0 % (95.0-99.0) 07/13/19 05:50 Abnormal lab findings: Abnormal Labs 07/03/19 07/03/19 07/03/19 01:00 01:00 01:00 WBC 17.9 H RBC Hgb Hct RDW 17.8 H Plt Count Lymph % (Auto) 11.7 L Hardy % (Auto) Hardy # 1.0 H Seg Neutrophils % 82.1 H Seg Neuts % (Manual) Seg Neutrophils # 14.7 H Seg Neutrophils # Man Monocytes # (Manual) ABG pH ABG pO2 ABG HCO3 ABG O2 Saturation ABG Base Excess ABG Hemoglobin Oxyhemoglobin Sodium Chloride 92.9 L Carbon Dioxide BUN 45 H Creatinine 5.3 H Glucose 229 H POC Glucose Hemoglobin A1c Calcium 10.5 H Phosphorus NT-Pro-B Natriuret Pep > 96654 H Albumin 2.5 L 07/03/19 07/03/19 07/03/19 01:00 01:35 04:30 WBC RBC Hgb Hct RDW Plt Count Lymph % (Auto) Hardy % (Auto) Hardy # Seg Neutrophils % Seg Neuts % (Manual) Seg Neutrophils # Seg Neutrophils # Man Monocytes # (Manual) ABG pH 7.555 H 7.489 H ABG pO2 65.4 L 149.9 H ABG HCO3 28.9 H 27.9 H ABG O2 Saturation ABG Base Excess 6.7 H 4.5 H ABG Hemoglobin Oxyhemoglobin 94.0 L Sodium Chloride Carbon Dioxide BUN Creatinine Glucose POC Glucose Hemoglobin A1c 7.0 H Calcium Phosphorus NT-Pro-B Natriuret Pep Albumin 07/03/19 07/03/19 07/03/19 12:10 17:35 23:59 WBC RBC Hgb Hct RDW Plt Count Lymph % (Auto) Hardy % (Auto) Hardy # Seg Neutrophils % Seg Neuts % (Manual) Seg Neutrophils # Seg Neutrophils # Man Monocytes # (Manual) ABG pH ABG pO2 ABG HCO3 ABG O2 Saturation ABG Base Excess ABG Hemoglobin Oxyhemoglobin Sodium Chloride Carbon Dioxide BUN Creatinine Glucose POC Glucose 246 H 163 H 112 H Hemoglobin A1c Calcium Phosphorus NT-Pro-B Natriuret Pep Albumin 07/04/19 07/04/19 07/04/19 04:24 04:56 04:56 WBC 17.3 H RBC Hgb Hct RDW 18.0 H Plt Count Lymph % (Auto) 8.7 L Hardy % (Auto) Hardy # 0.9 H Seg Neutrophils % 85.1 H Seg Neuts % (Manual) Seg Neutrophils # 14.8 H Seg Neutrophils # Man Monocytes # (Manual) ABG pH 7.496 H ABG pO2 74.0 L ABG HCO3 28.1 H ABG O2 Saturation ABG Base Excess 4.7 H ABG Hemoglobin Oxyhemoglobin 93.9 L Sodium Chloride 95.5 L Carbon Dioxide BUN 26 H Creatinine 3.4 H Glucose 145 H POC Glucose Hemoglobin A1c Calcium Phosphorus NT-Pro-B Natriuret Pep Albumin 07/04/19 07/04/19 07/05/19 07:04 17:56 01:45 WBC RBC Hgb Hct RDW Plt Count Lymph % (Auto) Hardy % (Auto) Hardy # Seg Neutrophils % Seg Neuts % (Manual) Seg Neutrophils # Seg Neutrophils # Man Monocytes # (Manual) ABG pH ABG pO2 ABG HCO3 ABG O2 Saturation ABG Base Excess ABG Hemoglobin Oxyhemoglobin Sodium Chloride Carbon Dioxide BUN Creatinine Glucose POC Glucose 162 H 273 H 148 H Hemoglobin A1c Calcium Phosphorus NT-Pro-B Natriuret Pep Albumin 07/05/19 07/05/19 07/05/19 03:07 03:07 05:57 WBC 18.7 H RBC Hgb Hct RDW 17.7 H Plt Count Lymph % (Auto) 7.6 L Hardy % (Auto) Hardy # 1.2 H Seg Neutrophils % 84.2 H Seg Neuts % (Manual) Seg Neutrophils # 15.7 H Seg Neutrophils # Man Monocytes # (Manual) ABG pH ABG pO2 ABG HCO3 ABG O2 Saturation ABG Base Excess ABG Hemoglobin Oxyhemoglobin Sodium Chloride 94.7 L 95.6 L Carbon Dioxide 19 L BUN 23 H 26 H Creatinine 2.7 H 2.9 H Glucose 161 H 179 H POC Glucose Hemoglobin A1c Calcium 10.3 H 10.5 H Phosphorus 5.20 H D NT-Pro-B Natriuret Pep Albumin 07/05/19 07/05/19 07/05/19 06:50 07:52 09:06 WBC 16.8 H RBC Hgb Hct RDW 18.1 H Plt Count Lymph % (Auto) 8.0 L Hardy % (Auto) Hardy # 1.1 H Seg Neutrophils % 84.4 H Seg Neuts % (Manual) Seg Neutrophils # 14.2 H Seg Neutrophils # Man Monocytes # (Manual) ABG pH ABG pO2 ABG HCO3 ABG O2 Saturation ABG Base Excess ABG Hemoglobin 11.7 L Oxyhemoglobin 94.6 L Sodium Chloride Carbon Dioxide BUN Creatinine Glucose POC Glucose 195 H Hemoglobin A1c Calcium Phosphorus NT-Pro-B Natriuret Pep Albumin 07/05/19 07/05/19 07/06/19 12:26 17:53 01:03 WBC RBC Hgb Hct RDW Plt Count Lymph % (Auto) Hardy % (Auto) Hardy # Seg Neutrophils % Seg Neuts % (Manual) Seg Neutrophils # Seg Neutrophils # Man Monocytes # (Manual) ABG pH ABG pO2 ABG HCO3 ABG O2 Saturation ABG Base Excess ABG Hemoglobin Oxyhemoglobin Sodium Chloride Carbon Dioxide BUN Creatinine Glucose POC Glucose 222 H 214 H 217 H Hemoglobin A1c Calcium Phosphorus NT-Pro-B Natriuret Pep Albumin 07/06/19 07/06/19 07/06/19 03:45 04:37 04:37 WBC 15.7 H RBC Hgb Hct RDW 17.9 H Plt Count Lymph % (Auto) 9.3 L Hardy % (Auto) 8.2 H Hardy # 1.3 H Seg Neutrophils % 81.5 H Seg Neuts % (Manual) Seg Neutrophils # 12.8 H Seg Neutrophils # Man Monocytes # (Manual) ABG pH ABG pO2 67.1 L ABG HCO3 ABG O2 Saturation 93.3 L ABG Base Excess ABG Hemoglobin Oxyhemoglobin 91.2 L Sodium Chloride 97.5 L Carbon Dioxide 20 L BUN 50 H Creatinine 4.5 H D Glucose 192 H POC Glucose Hemoglobin A1c Calcium Phosphorus 5.80 H NT-Pro-B Natriuret Pep Albumin 07/06/19 07/06/19 07/06/19 06:10 13:47 18:40 WBC RBC Hgb Hct RDW Plt Count Lymph % (Auto) Hardy % (Auto) Hardy # Seg Neutrophils % Seg Neuts % (Manual) Seg Neutrophils # Seg Neutrophils # Man Monocytes # (Manual) ABG pH ABG pO2 ABG HCO3 ABG O2 Saturation ABG Base Excess ABG Hemoglobin Oxyhemoglobin Sodium Chloride Carbon Dioxide BUN Creatinine Glucose POC Glucose 214 H 233 H 225 H Hemoglobin A1c Calcium Phosphorus NT-Pro-B Natriuret Pep Albumin 07/07/19 07/07/19 07/07/19 00:11 04:30 05:33 WBC RBC Hgb Hct RDW Plt Count Lymph % (Auto) Hardy % (Auto) Hardy # Seg Neutrophils % Seg Neuts % (Manual) Seg Neutrophils # Seg Neutrophils # Man Monocytes # (Manual) ABG pH ABG pO2 113.7 H ABG HCO3 28.6 H ABG O2 Saturation ABG Base Excess 4.0 H ABG Hemoglobin 11.3 L Oxyhemoglobin Sodium Chloride Carbon Dioxide BUN Creatinine Glucose POC Glucose 288 H 204 H Hemoglobin A1c Calcium Phosphorus NT-Pro-B Natriuret Pep Albumin 07/07/19 07/07/19 07/07/19 05:38 05:38 11:39 WBC 15.0 H RBC Hgb Hct RDW 18.3 H Plt Count Lymph % (Auto) 10.9 L Hardy % (Auto) 8.9 H Hardy # 1.3 H Seg Neutrophils % 79.6 H Seg Neuts % (Manual) Seg Neutrophils # 11.9 H Seg Neutrophils # Man Monocytes # (Manual) ABG pH ABG pO2 ABG HCO3 ABG O2 Saturation ABG Base Excess ABG Hemoglobin Oxyhemoglobin Sodium Chloride 94.8 L Carbon Dioxide BUN 32 H Creatinine 2.8 H Glucose 236 H POC Glucose 309 H Hemoglobin A1c Calcium 10.6 H Phosphorus NT-Pro-B Natriuret Pep Albumin 07/07/19 07/07/19 07/08/19 18:09 23:30 03:49 WBC RBC Hgb Hct RDW Plt Count Lymph % (Auto) Hardy % (Auto) Hardy # Seg Neutrophils % Seg Neuts % (Manual) Seg Neutrophils # Seg Neutrophils # Man Monocytes # (Manual) ABG pH ABG pO2 116.2 H ABG HCO3 27.7 H ABG O2 Saturation ABG Base Excess ABG Hemoglobin 11.2 L Oxyhemoglobin Sodium Chloride Carbon Dioxide BUN Creatinine Glucose POC Glucose 280 H 398 H Hemoglobin A1c Calcium Phosphorus NT-Pro-B Natriuret Pep Albumin 07/08/19 07/08/19 07/08/19 04:38 04:38 05:37 WBC 13.5 H RBC Hgb Hct RDW 18.3 H Plt Count Lymph % (Auto) Hardy % (Auto) 9.5 H Hardy # 1.3 H Seg Neutrophils % 75.6 H Seg Neuts % (Manual) Seg Neutrophils # 10.2 H Seg Neutrophils # Man Monocytes # (Manual) ABG pH ABG pO2 ABG HCO3 ABG O2 Saturation ABG Base Excess ABG Hemoglobin Oxyhemoglobin Sodium Chloride 94.9 L Carbon Dioxide BUN 64 H Creatinine 4.2 H Glucose 288 H POC Glucose 270 H Hemoglobin A1c Calcium 10.9 H Phosphorus NT-Pro-B Natriuret Pep Albumin 07/08/19 07/08/19 07/08/19 11:47 17:36 23:23 WBC RBC Hgb Hct RDW Plt Count Lymph % (Auto) Hardy % (Auto) Hardy # Seg Neutrophils % Seg Neuts % (Manual) Seg Neutrophils # Seg Neutrophils # Man Monocytes # (Manual) ABG pH ABG pO2 ABG HCO3 ABG O2 Saturation ABG Base Excess ABG Hemoglobin Oxyhemoglobin Sodium Chloride Carbon Dioxide BUN Creatinine Glucose POC Glucose 211 H 259 H 276 H Hemoglobin A1c Calcium Phosphorus NT-Pro-B Natriuret Pep Albumin 07/09/19 07/09/19 07/09/19 04:08 04:29 04:29 WBC 12.8 H RBC Hgb Hct RDW 17.7 H Plt Count Lymph % (Auto) 12.5 L Hardy % (Auto) 8.4 H Hardy # 1.1 H Seg Neutrophils % 77.0 H Seg Neuts % (Manual) Seg Neutrophils # 9.9 H Seg Neutrophils # Man Monocytes # (Manual) ABG pH 7.471 H ABG pO2 141.8 H ABG HCO3 32.3 H ABG O2 Saturation ABG Base Excess 7.8 H ABG Hemoglobin 11.3 L Oxyhemoglobin Sodium Chloride 94.1 L Carbon Dioxide BUN 36 H Creatinine 2.6 H Glucose 217 H POC Glucose Hemoglobin A1c Calcium 11.0 H Phosphorus NT-Pro-B Natriuret Pep Albumin 07/09/19 07/09/19 07/09/19 05:25 10:46 13:07 WBC RBC Hgb Hct RDW Plt Count Lymph % (Auto) Hardy % (Auto) Hardy # Seg Neutrophils % Seg Neuts % (Manual) Seg Neutrophils # Seg Neutrophils # Man Monocytes # (Manual) ABG pH ABG pO2 113.2 H ABG HCO3 30.9 H ABG O2 Saturation ABG Base Excess 6.0 H ABG Hemoglobin 10.5 L Oxyhemoglobin Sodium Chloride Carbon Dioxide BUN Creatinine Glucose POC Glucose 190 H 315 H Hemoglobin A1c Calcium Phosphorus NT-Pro-B Natriuret Pep Albumin 07/09/19 07/09/19 07/10/19 17:59 23:18 04:00 WBC RBC Hgb Hct RDW Plt Count Lymph % (Auto) Hardy % (Auto) Hardy # Seg Neutrophils % Seg Neuts % (Manual) Seg Neutrophils # Seg Neutrophils # Man Monocytes # (Manual) ABG pH ABG pO2 77.3 L ABG HCO3 30.4 H ABG O2 Saturation ABG Base Excess 5.1 H ABG Hemoglobin Oxyhemoglobin Sodium Chloride Carbon Dioxide BUN Creatinine Glucose POC Glucose 204 H 199 H Hemoglobin A1c Calcium Phosphorus NT-Pro-B Natriuret Pep Albumin 07/10/19 07/10/19 07/10/19 04:55 04:55 05:39 WBC 23.9 H RBC Hgb Hct RDW 18.1 H Plt Count Lymph % (Auto) Hardy % (Auto) Hardy # Seg Neutrophils % Seg Neuts % (Manual) 81.0 H Seg Neutrophils # Seg Neutrophils # Man 19.4 H Monocytes # (Manual) 1.0 H ABG pH ABG pO2 ABG HCO3 ABG O2 Saturation ABG Base Excess ABG Hemoglobin Oxyhemoglobin Sodium 133 L Chloride 88.0 L Carbon Dioxide BUN 64 H Creatinine 3.7 H Glucose 250 H POC Glucose 288 H Hemoglobin A1c Calcium 11.1 H Phosphorus NT-Pro-B Natriuret Pep Albumin 07/10/19 07/10/19 07/10/19 12:02 18:32 23:37 WBC RBC Hgb Hct RDW Plt Count Lymph % (Auto) Hardy % (Auto) Hardy # Seg Neutrophils % Seg Neuts % (Manual) Seg Neutrophils # Seg Neutrophils # Man Monocytes # (Manual) ABG pH ABG pO2 ABG HCO3 ABG O2 Saturation ABG Base Excess ABG Hemoglobin Oxyhemoglobin Sodium Chloride Carbon Dioxide BUN Creatinine Glucose POC Glucose 204 H 288 H 189 H Hemoglobin A1c Calcium Phosphorus NT-Pro-B Natriuret Pep Albumin 02/01/20 02/01/20 02/01/20 05:31 06:10 06:10 WBC 16.6 H RBC 3.60 L Hgb Hct RDW 16.8 H Plt Count Lymph % (Auto) Hardy % (Auto) Hardy # Seg Neutrophils % Seg Neuts % (Manual) Seg Neutrophils # Seg Neutrophils # Man Monocytes # (Manual) ABG pH ABG pO2 ABG HCO3 ABG O2 Saturation ABG Base Excess ABG Hemoglobin Oxyhemoglobin Sodium 130 L Chloride 87.4 L Carbon Dioxide BUN 47 H Creatinine 2.4 H Glucose 138 H POC Glucose 135 H Hemoglobin A1c Calcium 10.8 H Phosphorus NT-Pro-B Natriuret Pep Albumin 07/11/19 07/11/19 07/11/19 12:28 18:05 23:49 WBC RBC Hgb Hct RDW Plt Count Lymph % (Auto) Hardy % (Auto) Hardy # Seg Neutrophils % Seg Neuts % (Manual) Seg Neutrophils # Seg Neutrophils # Man Monocytes # (Manual) ABG pH ABG pO2 ABG HCO3 ABG O2 Saturation ABG Base Excess ABG Hemoglobin Oxyhemoglobin Sodium Chloride Carbon Dioxide BUN Creatinine Glucose POC Glucose 243 H 177 H 163 H Hemoglobin A1c Calcium Phosphorus NT-Pro-B Natriuret Pep Albumin 07/12/19 07/12/19 07/12/19 05:27 05:43 05:43 WBC 15.0 H RBC Hgb Hct RDW 17.5 H Plt Count Lymph % (Auto) Hardy % (Auto) Hardy # Seg Neutrophils % Seg Neuts % (Manual) Seg Neutrophils # Seg Neutrophils # Man Monocytes # (Manual) ABG pH ABG pO2 ABG HCO3 ABG O2 Saturation ABG Base Excess ABG Hemoglobin Oxyhemoglobin Sodium 128 L Chloride 85.7 L Carbon Dioxide BUN 76 H Creatinine 3.8 H D Glucose 157 H POC Glucose 156 H Hemoglobin A1c Calcium 10.8 H Phosphorus NT-Pro-B Natriuret Pep Albumin 07/12/19 07/12/19 07/13/19 12:03 18:30 00:03 WBC RBC Hgb Hct RDW Plt Count Lymph % (Auto) Hardy % (Auto) Hardy # Seg Neutrophils % Seg Neuts % (Manual) Seg Neutrophils # Seg Neutrophils # Man Monocytes # (Manual) ABG pH ABG pO2 ABG HCO3 ABG O2 Saturation ABG Base Excess ABG Hemoglobin Oxyhemoglobin Sodium Chloride Carbon Dioxide BUN Creatinine Glucose POC Glucose 162 H 183 H 187 H Hemoglobin A1c Calcium Phosphorus NT-Pro-B Natriuret Pep Albumin 07/13/19 07/13/19 07/13/19 05:50 05:56 07:50 WBC 13.5 H RBC 3.37 L Hgb 9.6 L Hct 28.8 L RDW 17.4 H Plt Count Lymph % (Auto) Hardy % (Auto) Hardy # Seg Neutrophils % Seg Neuts % (Manual) Seg Neutrophils # Seg Neutrophils # Man Monocytes # (Manual) ABG pH ABG pO2 110.8 H ABG HCO3 27.5 H ABG O2 Saturation ABG Base Excess ABG Hemoglobin 10.0 L Oxyhemoglobin Sodium Chloride Carbon Dioxide BUN Creatinine Glucose POC Glucose 216 H Hemoglobin A1c Calcium Phosphorus NT-Pro-B Natriuret Pep Albumin 07/13/19 07/13/19 07/13/19 07:50 13:18 18:09 WBC RBC Hgb Hct RDW Plt Count Lymph % (Auto) Hardy % (Auto) Hardy # Seg Neutrophils % Seg Neuts % (Manual) Seg Neutrophils # Seg Neutrophils # Man Monocytes # (Manual) ABG pH ABG pO2 ABG HCO3 ABG O2 Saturation ABG Base Excess ABG Hemoglobin Oxyhemoglobin Sodium 126 L Chloride 80.8 L Carbon Dioxide 21 L BUN 105 H Creatinine 4.7 H Glucose 215 H POC Glucose 187 H 202 H Hemoglobin A1c Calcium 10.3 H Phosphorus NT-Pro-B Natriuret Pep Albumin 07/13/19 07/13/19 07/14/19 19:44 23:23 04:17 WBC RBC Hgb Hct RDW 17.5 H Plt Count Lymph % (Auto) Hardy % (Auto) Hardy # Seg Neutrophils % Seg Neuts % (Manual) Seg Neutrophils # Seg Neutrophils # Man Monocytes # (Manual) ABG pH ABG pO2 ABG HCO3 ABG O2 Saturation ABG Base Excess ABG Hemoglobin Oxyhemoglobin Sodium 133 L D Chloride Carbon Dioxide BUN Creatinine Glucose POC Glucose 167 H Hemoglobin A1c Calcium Phosphorus NT-Pro-B Natriuret Pep Albumin 07/14/19 07/14/19 07/14/19 04:17 05:03 12:12 WBC RBC Hgb Hct RDW Plt Count Lymph % (Auto) Hardy % (Auto) Hardy # Seg Neutrophils % Seg Neuts % (Manual) Seg Neutrophils # Seg Neutrophils # Man Monocytes # (Manual) ABG pH ABG pO2 ABG HCO3 ABG O2 Saturation ABG Base Excess ABG Hemoglobin Oxyhemoglobin Sodium 131 L Chloride 88.8 L Carbon Dioxide BUN 47 H Creatinine 2.6 H Glucose 131 H POC Glucose 142 H 246 H Hemoglobin A1c Calcium Phosphorus NT-Pro-B Natriuret Pep Albumin 07/14/19 07/15/19 07/15/19 18:30 00:35 04:51 WBC RBC 3.51 L Hgb 9.9 L Hct 30.0 L RDW 17.6 H Plt Count 510 H Lymph % (Auto) Hardy % (Auto) Hardy # Seg Neutrophils % 72.4 H Seg Neuts % (Manual) Seg Neutrophils # Seg Neutrophils # Man Monocytes # (Manual) ABG pH ABG pO2 ABG HCO3 ABG O2 Saturation ABG Base Excess ABG Hemoglobin Oxyhemoglobin Sodium Chloride Carbon Dioxide BUN Creatinine Glucose POC Glucose 114 H 164 H Hemoglobin A1c Calcium Phosphorus NT-Pro-B Natriuret Pep Albumin 07/15/19 07/15/19 07/15/19 04:51 06:21 11:55 WBC RBC Hgb Hct RDW Plt Count Lymph % (Auto) Hardy % (Auto) Hardy # Seg Neutrophils % Seg Neuts % (Manual) Seg Neutrophils # Seg Neutrophils # Man Monocytes # (Manual) ABG pH ABG pO2 ABG HCO3 ABG O2 Saturation ABG Base Excess ABG Hemoglobin Oxyhemoglobin Sodium 134 L Chloride 88.7 L Carbon Dioxide BUN 78 H Creatinine 4.0 H D Glucose 141 H POC Glucose 135 H 172 H Hemoglobin A1c Calcium 10.4 H Phosphorus NT-Pro-B Natriuret Pep Albumin 07/15/19 07/15/19 07/15/19 17:46 18:10 23:20 WBC RBC Hgb Hct RDW Plt Count Lymph % (Auto) Hardy % (Auto) Hardy # Seg Neutrophils % Seg Neuts % (Manual) Seg Neutrophils # Seg Neutrophils # Man Monocytes # (Manual) ABG pH ABG pO2 ABG HCO3 ABG O2 Saturation ABG Base Excess ABG Hemoglobin Oxyhemoglobin Sodium Chloride Carbon Dioxide BUN Creatinine Glucose POC Glucose 203 H 237 H 184 H Hemoglobin A1c Calcium Phosphorus NT-Pro-B Natriuret Pep Albumin 07/16/19 07/16/19 07/16/19 04:44 04:44 05:44 WBC RBC Hgb Hct RDW 17.5 H Plt Count 605 H Lymph % (Auto) Hardy % (Auto) Hardy # Seg Neutrophils % 72.6 H Seg Neuts % (Manual) Seg Neutrophils # Seg Neutrophils # Man Monocytes # (Manual) ABG pH ABG pO2 ABG HCO3 ABG O2 Saturation ABG Base Excess ABG Hemoglobin Oxyhemoglobin Sodium Chloride 93.4 L Carbon Dioxide BUN 46 H Creatinine 2.6 H Glucose 125 H POC Glucose 147 H Hemoglobin A1c Calcium 10.5 H Phosphorus NT-Pro-B Natriuret Pep Albumin Chest x-ray: image reviewed Allied health notes reviewed: RT
[2019-07-16] MEDS: DOCUSATE SODIUM 100 MG/10 ML ORAL LIQD FEEDTUBE SCH ×2 (10:17→22:55)
[2019-07-16] MEDS: FAMOTIDINE 20 MG TAB PO SCH (10:18)
[2019-07-16] MEDS: HEPARIN 5,000 UNIT/1 ML VIAL SUB-Q SCH ×2 (10:21→22:55)
[2019-07-16] MEDS: INSULIN GLARGINE 100 UNITS/ML SUB-Q SCH (10:21)
--- NOTE | 2019-07-16 11:31 | Progress Note ---
Assessment and Plan Assessment and plan: Sepsis Source is unclear. Etiology may be secondary to pneumonia versus minimal cellulitis around sacral decubitus. If WBC worsens, consider CT chest, abdomen and pelvis with IV contrast. -Continue empiric antibiotics per infectious disease Acute hypoxic respiratory failure -Continue mechanical ventilation per pulmonary. -Etiology secondary to CHF versus pneumonia. -Await surgery to perform trach and PEG Toxic metabolic encephalopathy -Neuro checks -Continue to treat underlying causes. ESRD on HD -M/W/F -Avoid nephrotoxic agents -Renal dose all meds -Nephrology following Congestive heart Failure -BNP >59360 on admission -Monitor input and output. -Cardiology following and reported no evidence of volume overload Hypertension -Continue to monitor BP -Patient is normotensive off blood pressure medications. Insulin-dependent diabetes -POC BG monitoring -SSI coverage prn Hx Seizure -Continue anticonvulsant meds -Seizure precautions. Sacral decubitus ulcer CT non contrasted without evidence of fluid collection or osteomyelitis. DVT PPX -On Heparin Disposition. Discussed with case management possibility of LTAC The high probability of a clinically significant, sudden or life threatening deterioration of the [respiratory] system(s) required my full and direct attention, intervention and personal management. The aggregate critical care time was [32] minutes. This time is in addition to time spent performing repo rted procedures but includes the following: [x] Data Review and interpretation [x] Patient assessment and monitoring of vital signs [x] Documentation [x] Medication orders and management History Interval history: Patient remains orally intubated Hospitalist Physical - Constitutional Vitals: Temp Pulse Resp BP Pulse Ox 99.6 F 82 13 146/63 100 07/16/19 08:00 07/16/19 08:20 07/16/19 08:00 07/16/19 08:20 07/16/19 08:20 General appearance: Present: other (intubated on the vent) - EENT Eyes: Present: PERRL, EOM intact ENT: hearing intact, clear oral mucosa, dentition normal - Neck Neck: Present: supple, normal ROM - Respiratory Respiratory effort: normal Respiratory: bilateral: CTA - Cardiovascular Rhythm: regular Heart Sounds: Present: S1 & S2. Absent: gallop, rub - Extremities Extremities: no ischemia, No edema, Full ROM - Abdominal General gastrointestinal: soft, non-tender, non-distended, normal bowel sounds - Integumentary Integumentary: Present: clear, warm, dry - Neurologic Neurologic: CNII-XII intact, moves all extremities MATT score - Matt Score Age > 65: (0) No Aspirin use within the Past 7 Days: (0) No 3 or more CAD Risk Factors: (1) Yes 2 or more Angina events in past 24 hrs: (0) No Known CAD with more than 50% Stenosis: (0) No Elevated Cardiac Markers: (1) Yes ST Deviation Greater than 0.5mm: (0) No MATT Score: 2 Results - Labs CBC & Chem 7: 07/16/19 04:44 07/16/19 04:44 Labs: Laboratory Last Values WBC 9.0 K/mm3 (4.5-11.0) 07/16/19 04:44 RBC 3.69 M/mm3 (3.65-5.03) 07/16/19 04:44 Hgb 10.6 gm/dl (10.1-14.3) 07/16/19 04:44 Hct 31.8 % (30.3-42.9) 07/16/19 04:44 MCV 86 fl (79-97) 07/16/19 04:44 MCH 29 pg (28-32) 07/16/19 04:44 MCHC 33 % (30-34) 07/16/19 04:44 RDW 17.5 % (13.2-15.2) H 07/16/19 04:44 Plt Count 605 K/mm3 (140-440) H 07/16/19 04:44 Lymph % (Auto) 16.8 % (13.4-35.0) 07/16/19 04:44 Hinds % (Auto) 7.3 % (0.0-7.3) 07/16/19 04:44 Eos % (Auto) 2.4 % (0.0-4.3) 07/16/19 04:44 Baso % (Auto) 0.9 % (0.0-1.8) 07/16/19 04:44 Lymph # 1.5 K/mm3 (1.2-5.4) 07/16/19 04:44 Hinds # 0.7 K/mm3 (0.0-0.8) 07/16/19 04:44 Eos # 0.2 K/mm3 (0.0-0.4) 07/16/19 04:44 Baso # 0.1 K/mm3 (0.0-0.1) 07/16/19 04:44 Add Manual Diff Complete 07/10/19 04:55 Total Counted 100 07/10/19 04:55 Seg Neutrophils % 72.6 % (40.0-70.0) H 07/16/19 04:44 Seg Neuts % (Manual) 81.0 % (40.0-70.0) H 07/10/19 04:55 Band Neutrophils % 0 % 07/10/19 04:55 Lymphocytes % (Manual) 14.0 % (13.4-35.0) 07/10/19 04:55 Reactive Lymphs % (Man) 0 % 07/10/19 04:55 Monocytes % (Manual) 4.0 % (0.0-7.3) 07/10/19 04:55 Eosinophils % (Manual) 0 % (0.0-4.3) 07/10/19 04:55 Basophils % (Manual) 0 % (0.0-1.8) 07/10/19 04:55 Metamyelocytes % 1.0 % 07/10/19 04:55 Myelocytes % 0 % 07/10/19 04:55 Promyelocytes % 0 % 07/10/19 04:55 Blast Cells % 0 % 07/10/19 04:55 Nucleated RBC % Not Reportable 07/10/19 04:55 Seg Neutrophils # 6.5 K/mm3 (1.8-7.7) 07/16/19 04:44 Seg Neutrophils # Man 19.4 K/mm3 (1.8-7.7) H 07/10/19 04:55 Band Neutrophils # 0.0 K/mm3 07/10/19 04:55 Lymphocytes # (Manual) 3.3 K/mm3 (1.2-5.4) 07/10/19 04:55 Abs React Lymphs (Man) 0.0 K/mm3 07/10/19 04:55 Monocytes # (Manual) 1.0 K/mm3 (0.0-0.8) H 07/10/19 04:55 Eosinophils # (Manual) 0.0 K/mm3 (0.0-0.4) 07/10/19 04:55 Basophils # (Manual) 0.0 K/mm3 (0.0-0.1) 07/10/19 04:55 Metamyelocytes # 0.2 K/mm3 07/10/19 04:55 Myelocytes # 0.0 K/mm3 07/10/19 04:55 Promyelocytes # 0.0 K/mm3 07/10/19 04:55 Blast Cells # 0.0 K/mm3 07/10/19 04:55 WBC Morphology Not Reportable 07/10/19 04:55 Hypersegmented Neuts Not Reportable 07/10/19 04:55 Hyposegmented Neuts Not Reportable 07/10/19 04:55 Hypogranular Neuts Not Reportable 07/10/19 04:55 Smudge Cells Not Reportable 07/10/19 04:55 Toxic Granulation Not Reportable 07/10/19 04:55 Toxic Vacuolation Not Reportable 07/10/19 04:55 Dohle Bodies Not Reportable 07/10/19 04:55 Pelger-Huet Anomaly Not Reportable 07/10/19 04:55 Andrei Rods Not Reportable 07/10/19 04:55 Platelet Estimate Consistent w auto 07/10/19 04:55 Clumped Platelets Not Reportable 07/10/19 04:55 Plt Clumps, EDTA Not Reportable 07/10/19 04:55 Large Platelets Not Reportable 07/10/19 04:55 Giant Platelets Not Reportable 07/10/19 04:55 Platelet Satelliting Not Reportable 07/10/19 04:55 Plt Morphology Comment Not Reportable 07/10/19 04:55 RBC Morphology Not Reportable 07/10/19 04:55 Dimorphic RBCs Not Reportable 07/10/19 04:55 Polychromasia Not Reportable 07/10/19 04:55 Hypochromasia Not Reportable 07/10/19 04:55 Poikilocytosis Not Reportable 07/10/19 04:55 Anisocytosis Not Reportable 07/10/19 04:55 Microcytosis Not Reportable 07/10/19 04:55 Macrocytosis Not Reportable 07/10/19 04:55 Spherocytes Not Reportable 07/10/19 04:55 Pappenheimer Bodies Not Reportable 07/10/19 04:55 Sickle Cells Not Reportable 07/10/19 04:55 Target Cells Not Reportable 07/10/19 04:55 Tear Drop Cells Not Reportable 07/10/19 04:55 Ovalocytes Not Reportable 07/10/19 04:55 Helmet Cells Not Reportable 07/10/19 04:55 [place] Bodies Not Reportable 07/10/19 04:55 Dorr Rings Not Reportable 07/10/19 04:55 Tremayne Cells Not Reportable 07/10/19 04:55 Bite Cells Not Reportable 07/10/19 04:55 Crenated Cell Not Reportable 07/10/19 04:55 Elliptocytes Not Reportable 07/10/19 04:55 Acanthocytes (Spur) Not Reportable 07/10/19 04:55 Rouleaux Not Reportable 07/10/19 04:55 Hemoglobin C Crystals Not Reportable 07/10/19 04:55 Schistocytes Rare 07/10/19 04:55 Malaria parasites Not Reportable 07/10/19 04:55 Tristen Bodies Not Reportable 07/10/19 04:55 Hem Pathologist Commnt No 07/10/19 04:55 ABG pH 7.425 pH Units (7.350-7.450) 07/13/19 05:50 ABG pCO2 42.9 mm Hg 07/13/19 05:50 ABG pO2 110.8 mm Hg (80.0-90.0) H 07/13/19 05:50 ABG HCO3 27.5 mmol/L (20.0-26.0) H 07/13/19 05:50 ABG O2 Saturation 98.0 % (95.0-99.0) 07/13/19 05:50 ABG O2 Content 13.7 (0.0-44) 07/13/19 05:50 ABG Base Excess 2.8 mmol/L (-2.0-3.0) 07/13/19 05:50 ABG Hemoglobin 10.0 gm/dl (12.0-16.0) L 07/13/19 05:50 ABG Carboxyhemoglobin 1.4 % (0.0-5.0) 07/13/19 05:50 ABG Methemoglobin 0.5 % (0.0-1.5) 07/13/19 05:50 Oxyhemoglobin 96.2 % (95.0-99.0) 07/13/19 05:50 FiO2 40 % 07/13/19 05:50 Sodium 138 mmol/L (137-145) 07/16/19 04:44 Potassium 4.4 mmol/L (3.6-5.0) 07/16/19 04:44 Chloride 93.4 mmol/L (98-107) L 07/16/19 04:44 Carbon Dioxide 28 mmol/L (22-30) 07/16/19 04:44 Anion Gap 21 mmol/L 07/16/19 04:44 BUN 46 mg/dL (7-17) H 07/16/19 04:44 Creatinine 2.6 mg/dL (0.7-1.2) H 07/16/19 04:44 Estimated GFR 19 ml/min 07/16/19 04:44 BUN/Creatinine Ratio 18 % 07/16/19 04:44 Glucose 125 mg/dL (65-100) H 07/16/19 04:44 POC Glucose 147 (70-105) H 07/16/19 05:44 Hemoglobin A1c 7.0 % (4-6) H 07/03/19 01:00 Lactic Acid 1.20 mmol/L (0.7-2.0) 07/03/19 04:13 Calcium 10.5 mg/dL (8.4-10.2) H 07/16/19 04:44 Phosphorus 2.60 mg/dL (2.5-4.5) D 07/09/19 04:29 Total Bilirubin 0.30 mg/dL (0.1-1.2) 07/03/19 01:00 AST 22 units/L (5-40) 07/03/19 01:00 ALT 9 units/L (7-56) 07/03/19 01:00 Alkaline Phosphatase 101 units/L (35-129) 07/03/19 01:00 Ammonia 35.0 umol/L (25-60) 07/03/19 01:58 NT-Pro-B Natriuret Pep > 91608 pg/mL (0-900) H 07/03/19 01:00 Total Protein 7.0 g/dL (6.3-8.2) 07/03/19 01:00 Albumin 2.5 g/dL (3.9-5) L 07/03/19 01:00 Albumin/Globulin Ratio 0.6 % 07/03/19 01:00 TSH 2.600 mlU/mL (0.270-4.200) 07/03/19 01:00 Urine Color Yellow (Yellow) 07/03/19 Unknown Urine Turbidity Clear (Clear) 07/03/19 Unknown Urine pH 6.0 (5.0-7.0) 07/03/19 Unknown Ur Specific [place] 1.012 (1.003-1.030) 07/03/19 Unknown Urine Protein >500 mg/dL (Negative) 07/03/19 Unknown Urine Glucose (UA) >=500 mg/dL (Negative) 07/03/19 Unknown Urine Ketones Neg mg/dL (Negative) 07/03/19 Unknown Urine Blood Neg (Negative) 07/03/19 Unknown Urine Nitrite Neg (Negative) 07/03/19 Unknown Ur Reducing Substances Not Reportable 07/03/19 Unknown Urine Bilirubin Neg (Negative) 07/03/19 Unknown Urine Ictotest Not Reportable 07/03/19 Unknown Urine Urobilinogen < 2.0 mg/dL (<2.0) 07/03/19 Unknown Ur Leukocyte Esterase Neg (Negative) 07/03/19 Unknown Urine WBC (Auto) 1.0 /HPF (0.0-6.0) 07/03/19 Unknown Urine RBC (Auto) 2.0 /HPF (0.0-6.0) 07/03/19 Unknown U Epithel Cells (Auto) < 1.0 /HPF (0-13.0) 07/03/19 Unknown Urine Mucus Few /HPF 07/03/19 Unknown Random Vancomycin 18.7 ug/mL (0-40.0) 07/08/19 04:38 Influenza A (Rapid) Negative (Negative) 07/05/19 14:30 Influenza B (Rapid) Negative (Negative) 07/05/19 14:30 Active Medications - Current Medications Current Medications: Generic Name Dose Route Start Last Admin Trade Name Freq PRN Reason Stop Dose Admin Acetaminophen 650 mg 07/08/19 10:00 Tylenol [place] Q4H PRN Pain, Mild (1-3) Albumin Human 25 gm 07/06/19 13:42 07/08/19 11:59 Alburx 25% (Albumin) IV 25 gm FEDE PRN Administration Hypotension Lipase/Protease/Amylase 1 each 07/05/19 16:[address] 10,500 Unit FEEDTUBE PRN PRN For Clogged Feeding Tube Dextrose 0 ml 07/03/19 04:34 D50w (25gm) Syringe IV Q30MIN PRN Hypoglycemia Protocol Docusate Sodium 100 mg 07/15/19 10:00 07/16/19 10:17 Colace FEEDTUBE 100 mg BID YANG Administration Famotidine 20 mg 07/07/19 10:00 07/16/19 10:18 Pepcid PO 20 mg DAILY YANG Administration Heparin Sodium (Porcine) 5,000 unit 07/03/19 10:00 07/16/19 10:21 Heparin SUB-Q 5,000 unit Q12HR YANG Administration Hydrophilic Ointment 1 applic 07/03/19 00:53 Vaseline Lip Therapy TP Q2HR PRN Dry Lips Fentanyl Citrate 2,000 mcg in 100 mls @ 2.608 mls/hr 07/03/19 01:00 07/04/19 18:10 Fentanyl Drip Premix IV Infused TITR YANG Titration Protocol 1 MCG/KG/HR Sodium Chloride 100 mls @ 999 mls/hr 07/05/19 13:41 Nacl 0.9% IV FEDE PRN Hypotension Insulin Glargine 18 units 07/10/19 13:43 07/16/19 10:21 Lantus SUB-Q 18 units DAILY YANG Administration Insulin Human Lispro 0 unit 07/03/19 06:00 07/16/19 06:08 Humalog SUB-Q Not Given Q6HR YANG Protocol Multi-Ingred Cream/Lotion/Oil/Oint 1 applic 07/03/19 00:53 Artificial Tears Ophth Oint OU Q4HR PRN Dry Eye(s) Simple Syrup 15 ml 07/05/19 16:27 Simple Syrup FEEDTUBE PRN PRN Hypoglycemia Simple Syrup 30 ml 07/05/19 16:27 Simple Syrup FEEDTUBE PRN PRN Hypoglycemia Sodium Bicarbonate 325 mg 07/05/19 16:27 Sodium Bicarbonate FEEDTUBE PRN PRN For Clogged Feeding Tube Sodium Chloride 10 ml 07/03/19 10:00 07/16/19 10:25 Sodium Chloride Flush Syringe 10 Ml IV 10 ml BID YANG Administration Sodium Chloride 10 ml 07/03/19 04:34 07/05/19 10:42 Sodium Chloride Flush Syringe 10 Ml IV 10 ml PRN PRN Administration LINE FLUSH Nutrition/Malnutrition Assess - Dietary Evaluation Nutrition/Malnutrition Findings: Nutrition Notes Start: 07/06/19 08:50 Freq: Status: Active Protocol: Document 07/14/19 11:50 MK (Rec: 07/14/19 11:59 MK [id number]) Co-Sign 07/14/19 11:50 LP Nutrition Notes Initial or Follow up Reassessment Current Diagnosis CKD (stage V CKD),Decubitus( Pressure Ulcer),Diabetes,Heart Failure,Respiratory Failure Other Pertinent Diagnosis on HD, Sacral PU, seizures, bipolar disorder, metabolic encephalopathy Current Diet Nepro 1.8 at 35 ml/hr Labs/Tests Na 131 BUN 47 Cr 2.6 Pertinent Medications Lantus Heparin Height 5 ft 2 in Weight 50.3 kg [place] Body Weight (kg) 50.00 BMI 20.2 Weight change and time frame wt gain noted with renal Weight Status Appropriate Subjective/Other Information FU for tolerance and wt. Nepro 1.8 running at 35ml/hr. Percent of energy/protein needs met: 100%/100% Burn Absent Trauma Absent GI Symptoms None Current % PO Negligible Minimum of two criteria No physical signs of malnutrition #2 Nutrition Diagnosis Increased nutrient needs ( specify in comment below) Comments: Protein Diagnosis Progress(for reassessment Continues documentation) #1 Nutrition Diagnosis Inadequate oral intake Diagnosis Progress(for reassessment Continues documentation) Is patient on ventilator? Yes Is Patient Ambulatory and/or Out of Bed No REE-([facility]-confined to bed) [phone] Calculation Used for Recommendations [facility] Additional Notes Protein: 58 -96g (1.2-2g/kg) Fluid: 1-1.5 L/ day Nutrition Intervention Change Diet Order: TF Nutrition Support: Nepro 1.8 at 35ml/hr Change flush to 100 ml q4h. Kcal 1,512 Protein (gm) 68 Fluid (mL) 611 Goal #1 TF tolerance Goal #2 Wound healing Anticipated Discharge Needs: unable to determine at this time Follow-Up By: 07/21/19 Additional Comments F/U for TF tolerance.
--- NOTE | 2019-07-16 11:51 | Progress Note ---
Assessment and Plan Acute hypoxic respiratory failure on mechanical ventilation Acute metabolic encephalopathy ESRD on HD HTN Sepsis Hx of seizures DM Type 2 on insulin Hypercalemia Hyponatremia Plan: - no indication for HD today - Assess dialysis needs daily - Epogen dosing for anemia management as needed - Currently Intubated on Vent - as per Pulmonology - Strict I&O - Renally dose meds - This pt undergoes outpatient HD at [facility] every MWF Keith Monroy MD [phone] Subjective Date of service: 07/16/19 Principal diagnosis: Acute hypoxemic resp failure; AMS; Severe Sepsis; ESRD; CHF; HTN; Seizure Interval history: patient is intubated, no family at bedside. Objective - Vital Signs Vital signs: Vital Signs - 12hr 07/15/19 07/16/19 07/16/19 23:54 00:00 01:00 Temperature 99.0 F Pulse Rate 81 84 79 Pulse Rate [ 82 From Monitor] Respiratory 17 13 Rate Blood Pressure 128/70 146/77 117/65 O2 Sat by Pulse 100 100 100 Oximetry 07/16/19 07/16/19 07/16/19 02:00 03:00 04:00 Temperature 99.3 F Pulse Rate 84 83 80 Pulse Rate [ 81 From Monitor] Respiratory 13 13 13 Rate Blood Pressure 126/66 132/66 133/63 O2 Sat by Pulse 100 100 100 Oximetry 07/16/19 07/16/19 07/16/19 04:33 05:00 06:00 Temperature Pulse Rate 78 77 82 Pulse Rate [ From Monitor] Respiratory 13 13 Rate Blood Pressure 145/64 135/62 144/66 O2 Sat by Pulse 100 99 97 Oximetry 07/16/19 07/16/19 07/16/19 08:00 08:20 11:34 Temperature 99.6 F Pulse Rate 82 81 Pulse Rate [ 77 From Monitor] Respiratory 13 Rate Blood Pressure 146/63 131/65 O2 Sat by Pulse 100 100 100 Oximetry - General Appearance General appearance: intubated EENT: ATNC, PERRL, mucous membranes dry Neck: no JVD, no carotid bruit Respiratory: Present: Clear to Ascultation. Absent: Rales, Ronchi Cardiology: regular, S1S2 Gastrointestinal: normoactive bowel sounds, no tenderness, no distended Integumentary: no rash, warm and dry Neurologic: other (intubated) Musculoskeletal: other (no edema in BLE) Psychiatric: other (intubated) - Lab 07/16/19 04:44 07/16/19 04:44 Most recent lab results ABG pH 7.425 pH Units (7.350-7.450) 07/13/19 05:50 ABG pCO2 42.9 mm Hg 07/13/19 05:50 ABG pO2 110.8 mm Hg (80.0-90.0) H 07/13/19 05:50 ABG HCO3 27.5 mmol/L (20.0-26.0) H 07/13/19 05:50 ABG O2 Saturation 98.0 % (95.0-99.0) 07/13/19 05:50 Calcium 10.5 mg/dL (8.4-10.2) H 07/16/19 04:44 Phosphorus 2.60 mg/dL (2.5-4.5) D 07/09/19 04:29 Medications & Allergies - Medications Allergies/Adverse Reactions: Allergies No Known Allergies Allergy (Verified 07/03/19 10:58) Home Medications: Home Medications Medication Instructions Recorded Confirmed Last Taken Type Amlodipine Besylate [Norvasc] 10 mg PO DAILY 06/24/19 07/04/19 Unknown History AtorvaSTATin [Lipitor] 20 mg PO QHS 06/24/19 07/04/19 Unknown History Bumetanide 1 mg PO DAILY 06/24/19 07/04/19 Unknown History Cinacalcet HCl 30 mg PO DAILY 06/24/19 07/04/19 Unknown History Divalproex Sodium [Depakote 500 mg PO BID 06/24/19 07/04/19 Unknown History Sprinkle] Lispro Insulin [HumaLOG] 0 - 200 unit SQ ACHS 06/24/19 07/04/19 Unknown History Vit B Comp No.3/Folic/C/Biotin 1 each PO DAILY 06/24/19 07/04/19 Unknown History [Nephro-Umu Rx Tablet] carvediloL [Coreg] 25 mg PO BID 06/24/19 07/04/19 Unknown History hydrALAZINE [Apresoline TAB] 50 mg PO Q8HR 06/24/19 07/04/19 Unknown History ALBUTEROL NEB's [Proventil 0.083% 2.5 mg IH TIDRT #30 nebu 06/30/19 07/04/19 Unknown Rx NEBS] Lactulose [Cephulac] 20 gm PO Q8HR oral.liqd 06/30/19 07/04/19 Unknown Rx Sevelamer Carbonate [Renvela] 800 mg PO TIDWM tablet 06/30/19 07/04/19 Unknown Rx risperiDONE [RisperDAL] 0.5 mg PO BID tablet 06/30/19 07/04/19 Unknown Rx Active Medications: Generic Name Dose Route Start Last Admin Trade Name Freq PRN Reason Stop Dose Admin Acetaminophen 650 mg 07/08/19 10:00 Tylenol [place] Q4H PRN Pain, Mild (1-3) Albumin Human 25 gm 07/06/19 13:42 07/08/19 11:59 Alburx 25% (Albumin) IV 25 gm FEDE PRN Administration Hypotension Lipase/Protease/Amylase 1 each 07/05/19 16:[address] 10,500 Unit FEEDTUBE PRN PRN For Clogged Feeding Tube Dextrose 0 ml 07/03/19 04:34 D50w (25gm) Syringe IV Q30MIN PRN Hypoglycemia Protocol Docusate Sodium 100 mg 07/15/19 10:00 07/16/19 10:17 Colace FEEDTUBE 100 mg BID YANG Administration Famotidine 20 mg 07/07/19 10:00 07/16/19 10:18 Pepcid PO 20 mg DAILY YANG Administration Heparin Sodium (Porcine) 5,000 unit 07/03/19 10:00 07/16/19 10:21 Heparin SUB-Q 5,000 unit Q12HR YANG Administration Hydrophilic Ointment 1 applic 07/03/19 00:53 Vaseline Lip Therapy TP Q2HR PRN Dry Lips Fentanyl Citrate 2,000 mcg in 100 mls @ 2.608 mls/hr 07/03/19 01:00 07/04/19 18:10 Fentanyl Drip Premix IV Infused TITR YANG Titration Protocol 1 MCG/KG/HR Sodium Chloride 100 mls @ 999 mls/hr 07/05/19 13:41 Nacl 0.9% IV FEDE PRN Hypotension Insulin Glargine 18 units 07/10/19 13:43 07/16/19 10:21 Lantus SUB-Q 18 units DAILY YANG Administration Insulin Human Lispro 0 unit 07/03/19 06:00 07/16/19 06:08 Humalog SUB-Q Not Given Q6HR [facility] Protocol Multi-Ingred Cream/Lotion/Oil/Oint 1 applic 07/03/19 00:53 Artificial Tears Ophth Oint OU Q4HR PRN Dry Eye(s) Simple Syrup 15 ml 07/05/19 16:27 Simple Syrup FEEDTUBE PRN PRN Hypoglycemia Simple Syrup 30 ml 07/05/19 16:27 Simple Syrup FEEDTUBE PRN PRN Hypoglycemia Sodium Bicarbonate 325 mg 07/05/19 16:27 Sodium Bicarbonate FEEDTUBE PRN PRN For Clogged Feeding Tube Sodium Chloride 10 ml 07/03/19 10:00 07/16/19 10:25 Sodium Chloride Flush Syringe 10 Ml IV 10 ml BID YANG Administration Sodium Chloride 10 ml 07/03/19 04:34 07/05/19 10:42 Sodium Chloride Flush Syringe 10 Ml IV 10 ml PRN PRN Administration LINE FLUSH
[2019-07-17] MEDS: INSULIN LISPRO 100 UNIT/ML SUB-Q SCH ×4 (01:04→18:10)
[2019-07-17 04:32] LABS: Basophils # (Auto) 0.1 K/mm3 (0.0-0.1); Basophils % (Auto) 0.6 % (0.0-1.8); Eosinophils # (Auto) 0.3 K/mm3 (0.0-0.4); Eosinophils % (Auto) 2.8 % (0.0-4.3); Hematocrit 32.9 % (30.3-42.9); Hemoglobin 10.7 gm/dl (10.1-14.3); Lymphocytes % (Auto) 20.5 % (13.4-35.0); Mean Corpuscular HGB Conc 33 % (30-34); Mean Corpuscular Volume 87 fl (79-97); Monocytes # (Auto) 0.7 K/mm3 (0.0-0.8); Monocytes % (Auto) 7.7 % (0.0-7.3); Platelet Count 647 K/mm3 (140-440); Red Blood Count 3.77 M/mm3 (3.65-5.03); Red Cell Distribution Width 17.7 % (13.2-15.2)
[2019-07-17 04:52] LABS: Calcium 10.8 mg/dL (8.4-10.2)
[2019-07-17] MEDS: INSULIN GLARGINE 100 UNITS/ML SUB-Q SCH (09:45)
[2019-07-17] MEDS: DOCUSATE SODIUM 100 MG/10 ML ORAL LIQD FEEDTUBE SCH ×2 (09:45→22:47)
[2019-07-17] MEDS: HEPARIN 5,000 UNIT/1 ML VIAL SUB-Q SCH ×2 (09:46→22:47)
[2019-07-17] MEDS: FAMOTIDINE 20 MG TAB PO SCH (09:46)
--- NOTE | 2019-07-17 11:36 | Progress Note ---
Assessment and Plan Acute hypoxemic respiratory failure on MVS Acute toxic metabolic encephalopathy Severe Sepsis-resolved ESRD on HD Congestive heart Failure Accelerated Hypertension H/O Seizure Mental status precludes safe extubation at this time, however she appears to waking up more. Continue daily PSV as tolerated. PEG and trach discussions with the family, in wilmer event she is not liberated from MVS Intermittent IV analgesia for now Continue agitation management Will evaluate for possible trial of extubation- early next week is her mental status and respiratory mechanics are acceptable. Continue all supportive care Hold off on administering any anti-hypertensives SBP 160, she is scheduled for HD. Will reassess the need for antihypertensives, after HD. Discussed with HD nurse to get her HD done as soon as possible PT/OT - VAP bundle addressed (aspiration precautions, HOB>40 degrees) -Lung protective strategies -wean FiO2 for O2 sats >90% - continue bronchodilators with pulmonary hygiene per RT - Continue enteral nutrition - HD/UF per nephrology for toxin and volume clearance - conitue to monitor clinically, trend temperature curve and WCC - continue VTE prophylaxis with heparin SQ - continue stress ulcer prophylaxis with Famotidine - accuchecks with glycemic control for SSI (While critically ill target blood glucose of 140-180 mg/dL; avoid hypoglycemia) - continue mobility protocols and off loading for pressure ulcer prevention - Continue to monitor hemodynamics closely - Fluid restrictive strategies as tolerated by hemodynamics and by her renal function - continue to avoid nephrotoxins, dose all medications for CrCL and GFR - Monitor electrolyte profile closely and replete as indicated - Chronic home medications, continue same - All other care per attending / other consultants CONDITION: CRITICAL PROGNOSIS: GUARDED CODE STATUS: FULL CODE The high probability of a clinically significant, sudden or life-threatening deterioration of the [respiratory, cardiovascular, neurology, renal] system(s) required my full and direct attention, intervention and personal management. The aggregate critical care time was [31] minutes without overlap. Time includes spent on; [x] Data Review and interpretation [x] Patient assessment and monitoring of vital signs [x] Documentation [x] Medication orders and management Subjective Date of service: 07/17/19 Principal diagnosis: Acute hypoxemic resp failure; AMS; Severe Sepsis; ESRD; CHF; HTN; Seizure Interval history: Patient is seen today for: Acute hypoxemic respiratory failure on MVS;Acute toxic metabolic encephalopathy;Severe Sepsis; ESRD on HD Seen and examined at bedside; 24hour events reviewed; nursing and respiratory care staff consulted; no adverse overnight events reported to me; Vitals, labs, medications, chart reviewed. No fevers overnight; no diarrhea, has constipation, spontaneous eye opening and obeying simple commands,hypertensive this morning,scheduled for HD today; Tolerating tube feedings with acceptable glycemic control, no vomiting. Remains critically ill, orally intubated on MVS, tolerating SBT tenuously Objective Vital Signs - 12hr 07/16/19 07/17/19 07/17/19 23:58 00:00 00:56 Temperature 97.8 F Pulse Rate 67 69 Pulse Rate [ 68 From Monitor] Respiratory 12 Rate Blood Pressure 176/70 145/35 O2 Sat by Pulse 100 100 Oximetry 07/17/19 07/17/19 07/17/19 01:00 02:00 03:00 Temperature Pulse Rate 70 63 66 Pulse Rate [ From Monitor] Respiratory 12 12 13 Rate Blood Pressure 145/35 140/33 130/30 O2 Sat by Pulse 100 100 100 Oximetry 07/17/19 07/17/19 07/17/19 03:34 04:00 05:00 Temperature 99.2 F Pulse Rate 66 69 Pulse Rate [ 70 From Monitor] Respiratory 12 14 Rate Blood Pressure 146/33 157/42 O2 Sat by Pulse 99 100 Oximetry 07/17/19 07/17/19 07/17/19 05:01 06:00 07:00 Temperature Pulse Rate 71 71 69 Pulse Rate [ From Monitor] Respiratory 12 13 Rate Blood Pressure 157/42 160/46 173/68 O2 Sat by Pulse 100 99 100 Oximetry 07/17/19 07/17/19 07/17/19 07:18 08:00 09:00 Temperature 98.9 F Pulse Rate 63 66 67 Pulse Rate [ 66 From Monitor] Respiratory 12 12 Rate Blood Pressure 173/68 178/62 164/65 O2 Sat by Pulse 100 100 100 Oximetry 07/17/19 07/17/19 10:00 11:00 Temperature Pulse Rate 69 68 Pulse Rate [ From Monitor] Respiratory 19 18 Rate Blood Pressure 181/63 180/64 O2 Sat by Pulse 100 100 Oximetry Constitutional: no acute distress, other (more awake, chronically ill looking) Eyes: non-icteric ENT: oropharynx dry, other (ETT 23 cm JORY) Neck: supple, no lymphadenopathy, no JVD Effort: normal Ascultation: Bilateral: diminished breath sounds, rhonchi Percussion: Bilateral: not dull Cardiovascular: regular rate and rhythm, other (S1,S2) Gastrointestinal: normoactive bowel sounds, soft, non-tender, non-distended Integumentary: normal, decubitus ulcer (sacral) Extremities: no cyanosis, no edema, pink and warm, pulses normal Neurologic: pupils equal and round, other (squeezes my hand on command, ) Psychiatric: other (unable to assess re: AMS) CBC and BMP: 07/18/19 05:15 07/18/19 05:15 ABG, PT/INR, D-dimer: ABG ABG pH 7.425 pH Units (7.350-7.450) 07/13/19 05:50 ABG pCO2 42.9 mm Hg 07/13/19 05:50 ABG pO2 110.8 mm Hg (80.0-90.0) H 07/13/19 05:50 ABG O2 Saturation 98.0 % (95.0-99.0) 07/13/19 05:50 Abnormal lab findings: Abnormal Labs 07/03/19 07/03/19 07/03/19 01:00 01:00 01:00 WBC 17.9 H RBC Hgb Hct RDW 17.8 H Plt Count Lymph % (Auto) 11.7 L [place] % (Auto) [place] # 1.0 H Seg Neutrophils % 82.1 H Seg Neuts % (Manual) Seg Neutrophils # 14.7 H Seg Neutrophils # Man Monocytes # (Manual) ABG pH ABG pO2 ABG HCO3 ABG O2 Saturation ABG Base Excess ABG Hemoglobin Oxyhemoglobin Sodium Chloride 92.9 L Carbon Dioxide BUN 45 H Creatinine 5.3 H Glucose 229 H POC Glucose Hemoglobin A1c Calcium 10.5 H Phosphorus NT-Pro-B Natriuret Pep > 35664 H Albumin 2.5 L 07/03/19 07/03/19 07/03/19 01:00 01:35 04:30 WBC RBC Hgb Hct RDW Plt Count Lymph % (Auto) [place] % (Auto) [place] # Seg Neutrophils % Seg Neuts % (Manual) Seg Neutrophils # Seg Neutrophils # Man Monocytes # (Manual) ABG pH 7.555 H 7.489 H ABG pO2 65.4 L 149.9 H ABG HCO3 28.9 H 27.9 H ABG O2 Saturation ABG Base Excess 6.7 H 4.5 H ABG Hemoglobin Oxyhemoglobin 94.0 L Sodium Chloride Carbon Dioxide BUN Creatinine Glucose POC Glucose Hemoglobin A1c 7.0 H Calcium Phosphorus NT-Pro-B Natriuret Pep Albumin 07/03/19 07/03/19 07/03/19 12:10 17:35 23:59 WBC RBC Hgb Hct RDW Plt Count Lymph % (Auto) [place] % (Auto) [place] # Seg Neutrophils % Seg Neuts % (Manual) Seg Neutrophils # Seg Neutrophils # Man Monocytes # (Manual) ABG pH ABG pO2 ABG HCO3 ABG O2 Saturation ABG Base Excess ABG Hemoglobin Oxyhemoglobin Sodium Chloride Carbon Dioxide BUN Creatinine Glucose POC Glucose 246 H 163 H 112 H Hemoglobin A1c Calcium Phosphorus NT-Pro-B Natriuret Pep Albumin 07/04/19 07/04/19 07/04/19 04:24 04:56 04:56 WBC 17.3 H RBC Hgb Hct RDW 18.0 H Plt Count Lymph % (Auto) 8.7 L [place] % (Auto) [place] # 0.9 H Seg Neutrophils % 85.1 H Seg Neuts % (Manual) Seg Neutrophils # 14.8 H Seg Neutrophils # Man Monocytes # (Manual) ABG pH 7.496 H ABG pO2 74.0 L ABG HCO3 28.1 H ABG O2 Saturation ABG Base Excess 4.7 H ABG Hemoglobin Oxyhemoglobin 93.9 L Sodium Chloride 95.5 L Carbon Dioxide BUN 26 H Creatinine 3.4 H Glucose 145 H POC Glucose Hemoglobin A1c Calcium Phosphorus NT-Pro-B Natriuret Pep Albumin 07/04/19 07/04/19 07/05/19 07:04 17:56 01:45 WBC RBC Hgb Hct RDW Plt Count Lymph % (Auto) [place] % (Auto) [place] # Seg Neutrophils % Seg Neuts % (Manual) Seg Neutrophils # Seg Neutrophils # Man Monocytes # (Manual) ABG pH ABG pO2 ABG HCO3 ABG O2 Saturation ABG Base Excess ABG Hemoglobin Oxyhemoglobin Sodium Chloride Carbon Dioxide BUN Creatinine Glucose POC Glucose 162 H 273 H 148 H Hemoglobin A1c Calcium Phosphorus NT-Pro-B Natriuret Pep Albumin 07/05/19 07/05/19 07/05/19 03:07 03:07 05:57 WBC 18.7 H RBC Hgb Hct RDW 17.7 H Plt Count Lymph % (Auto) 7.6 L [place] % (Auto) [place] # 1.2 H Seg Neutrophils % 84.2 H Seg Neuts % (Manual) Seg Neutrophils # 15.7 H Seg Neutrophils # Man Monocytes # (Manual) ABG pH ABG pO2 ABG HCO3 ABG O2 Saturation ABG Base Excess ABG Hemoglobin Oxyhemoglobin Sodium Chloride 94.7 L 95.6 L Carbon Dioxide 19 L BUN 23 H 26 H Creatinine 2.7 H 2.9 H Glucose 161 H 179 H POC Glucose Hemoglobin A1c Calcium 10.3 H 10.5 H Phosphorus 5.20 H D NT-Pro-B Natriuret Pep Albumin 07/05/19 07/05/19 07/05/19 06:50 07:52 09:06 WBC 16.8 H RBC Hgb Hct RDW 18.1 H Plt Count Lymph % (Auto) 8.0 L [place] % (Auto) [place] # 1.1 H Seg Neutrophils % 84.4 H Seg Neuts % (Manual) Seg Neutrophils # 14.2 H Seg Neutrophils # Man Monocytes # (Manual) ABG pH ABG pO2 ABG HCO3 ABG O2 Saturation ABG Base Excess ABG Hemoglobin 11.7 L Oxyhemoglobin 94.6 L Sodium Chloride Carbon Dioxide BUN Creatinine Glucose POC Glucose 195 H Hemoglobin A1c Calcium Phosphorus NT-Pro-B Natriuret Pep Albumin 07/05/19 07/05/19 07/06/19 12:26 17:53 01:03 WBC RBC Hgb Hct RDW Plt Count Lymph % (Auto) [place] % (Auto) [place] # Seg Neutrophils % Seg Neuts % (Manual) Seg Neutrophils # Seg Neutrophils # Man Monocytes # (Manual) ABG pH ABG pO2 ABG HCO3 ABG O2 Saturation ABG Base Excess ABG Hemoglobin Oxyhemoglobin Sodium Chloride Carbon Dioxide BUN Creatinine Glucose POC Glucose 222 H 214 H 217 H Hemoglobin A1c Calcium Phosphorus NT-Pro-B Natriuret Pep Albumin 07/06/19 07/06/19 07/06/19 03:45 04:37 04:37 WBC 15.7 H RBC Hgb Hct RDW 17.9 H Plt Count Lymph % (Auto) 9.3 L [place] % (Auto) 8.2 H [place] # 1.3 H Seg Neutrophils % 81.5 H Seg Neuts % (Manual) Seg Neutrophils # 12.8 H Seg Neutrophils # Man Monocytes # (Manual) ABG pH ABG pO2 67.1 L ABG HCO3 ABG O2 Saturation 93.3 L ABG Base Excess ABG Hemoglobin Oxyhemoglobin 91.2 L Sodium Chloride 97.5 L Carbon Dioxide 20 L BUN 50 H Creatinine 4.5 H D Glucose 192 H POC Glucose Hemoglobin A1c Calcium Phosphorus 5.80 H NT-Pro-B Natriuret Pep Albumin 07/06/19 07/06/19 07/06/19 06:10 13:47 18:40 WBC RBC Hgb Hct RDW Plt Count Lymph % (Auto) [place] % (Auto) [place] # Seg Neutrophils % Seg Neuts % (Manual) Seg Neutrophils # Seg Neutrophils # Man Monocytes # (Manual) ABG pH ABG pO2 ABG HCO3 ABG O2 Saturation ABG Base Excess ABG Hemoglobin Oxyhemoglobin Sodium Chloride Carbon Dioxide BUN Creatinine Glucose POC Glucose 214 H 233 H 225 H Hemoglobin A1c Calcium Phosphorus NT-Pro-B Natriuret Pep Albumin 07/07/19 07/07/19 07/07/19 00:11 04:30 05:33 WBC RBC Hgb Hct RDW Plt Count Lymph % (Auto) [place] % (Auto) [place] # Seg Neutrophils % Seg Neuts % (Manual) Seg Neutrophils # Seg Neutrophils # Man Monocytes # (Manual) ABG pH ABG pO2 113.7 H ABG HCO3 28.6 H ABG O2 Saturation ABG Base Excess 4.0 H ABG Hemoglobin 11.3 L Oxyhemoglobin Sodium Chloride Carbon Dioxide BUN Creatinine Glucose POC Glucose 288 H 204 H Hemoglobin A1c Calcium Phosphorus NT-Pro-B Natriuret Pep Albumin 07/07/19 07/07/19 07/07/19 05:38 05:38 11:39 WBC 15.0 H RBC Hgb Hct RDW 18.3 H Plt Count Lymph % (Auto) 10.9 L [place] % (Auto) 8.9 H [place] # 1.3 H Seg Neutrophils % 79.6 H Seg Neuts % (Manual) Seg Neutrophils # 11.9 H Seg Neutrophils # Man Monocytes # (Manual) ABG pH ABG pO2 ABG HCO3 ABG O2 Saturation ABG Base Excess ABG Hemoglobin Oxyhemoglobin Sodium Chloride 94.8 L Carbon Dioxide BUN 32 H Creatinine 2.8 H Glucose 236 H POC Glucose 309 H Hemoglobin A1c Calcium 10.6 H Phosphorus NT-Pro-B Natriuret Pep Albumin 01/28/20 01/28/20 01/29/20 18:09 23:30 03:49 WBC RBC Hgb Hct RDW Plt Count Lymph % (Auto) [place] % (Auto) [place] # Seg Neutrophils % Seg Neuts % (Manual) Seg Neutrophils # Seg Neutrophils # Man Monocytes # (Manual) ABG pH ABG pO2 116.2 H ABG HCO3 27.7 H ABG O2 Saturation ABG Base Excess ABG Hemoglobin 11.2 L Oxyhemoglobin Sodium Chloride Carbon Dioxide BUN Creatinine Glucose POC Glucose 280 H 398 H Hemoglobin A1c Calcium Phosphorus NT-Pro-B Natriuret Pep Albumin 07/08/19 07/08/19 07/08/19 04:38 04:38 05:37 WBC 13.5 H RBC Hgb Hct RDW 18.3 H Plt Count Lymph % (Auto) [place] % (Auto) 9.5 H [place] # 1.3 H Seg Neutrophils % 75.6 H Seg Neuts % (Manual) Seg Neutrophils # 10.2 H Seg Neutrophils # Man Monocytes # (Manual) ABG pH ABG pO2 ABG HCO3 ABG O2 Saturation ABG Base Excess ABG Hemoglobin Oxyhemoglobin Sodium Chloride 94.9 L Carbon Dioxide BUN 64 H Creatinine 4.2 H Glucose 288 H POC Glucose 270 H Hemoglobin A1c Calcium 10.9 H Phosphorus NT-Pro-B Natriuret Pep Albumin 07/08/19 07/08/19 07/08/19 11:47 17:36 23:23 WBC RBC Hgb Hct RDW Plt Count Lymph % (Auto) [place] % (Auto) [place] # Seg Neutrophils % Seg Neuts % (Manual) Seg Neutrophils # Seg Neutrophils # Man Monocytes # (Manual) ABG pH ABG pO2 ABG HCO3 ABG O2 Saturation ABG Base Excess ABG Hemoglobin Oxyhemoglobin Sodium Chloride Carbon Dioxide BUN Creatinine Glucose POC Glucose 211 H 259 H 276 H Hemoglobin A1c Calcium Phosphorus NT-Pro-B Natriuret Pep Albumin 07/09/19 07/09/19 07/09/19 04:08 04:29 04:29 WBC 12.8 H RBC Hgb Hct RDW 17.7 H Plt Count Lymph % (Auto) 12.5 L [place] % (Auto) 8.4 H [place] # 1.1 H Seg Neutrophils % 77.0 H Seg Neuts % (Manual) Seg Neutrophils # 9.9 H Seg Neutrophils # Man Monocytes # (Manual) ABG pH 7.471 H ABG pO2 141.8 H ABG HCO3 32.3 H ABG O2 Saturation ABG Base Excess 7.8 H ABG Hemoglobin 11.3 L Oxyhemoglobin Sodium Chloride 94.1 L Carbon Dioxide BUN 36 H Creatinine 2.6 H Glucose 217 H POC Glucose Hemoglobin A1c Calcium 11.0 H Phosphorus NT-Pro-B Natriuret Pep Albumin 07/09/19 07/09/19 07/09/19 05:25 10:46 13:07 WBC RBC Hgb Hct RDW Plt Count Lymph % (Auto) [place] % (Auto) [place] # Seg Neutrophils % Seg Neuts % (Manual) Seg Neutrophils # Seg Neutrophils # Man Monocytes # (Manual) ABG pH ABG pO2 113.2 H ABG HCO3 30.9 H ABG O2 Saturation ABG Base Excess 6.0 H ABG Hemoglobin 10.5 L Oxyhemoglobin Sodium Chloride Carbon Dioxide BUN Creatinine Glucose POC Glucose 190 H 315 H Hemoglobin A1c Calcium Phosphorus NT-Pro-B Natriuret Pep Albumin 07/09/19 07/09/19 07/10/19 17:59 23:18 04:00 WBC RBC Hgb Hct RDW Plt Count Lymph % (Auto) [place] % (Auto) [place] # Seg Neutrophils % Seg Neuts % (Manual) Seg Neutrophils # Seg Neutrophils # Man Monocytes # (Manual) ABG pH ABG pO2 77.3 L ABG HCO3 30.4 H ABG O2 Saturation ABG Base Excess 5.1 H ABG Hemoglobin Oxyhemoglobin Sodium Chloride Carbon Dioxide BUN Creatinine Glucose POC Glucose 204 H 199 H Hemoglobin A1c Calcium Phosphorus NT-Pro-B Natriuret Pep Albumin 07/10/19 07/10/19 07/10/19 04:55 04:55 05:39 WBC 23.9 H RBC Hgb Hct RDW 18.1 H Plt Count Lymph % (Auto) [place] % (Auto) [place] # Seg Neutrophils % Seg Neuts % (Manual) 81.0 H Seg Neutrophils # Seg Neutrophils # Man 19.4 H Monocytes # (Manual) 1.0 H ABG pH ABG pO2 ABG HCO3 ABG O2 Saturation ABG Base Excess ABG Hemoglobin Oxyhemoglobin Sodium 133 L Chloride 88.0 L Carbon Dioxide BUN 64 H Creatinine 3.7 H Glucose 250 H POC Glucose 288 H Hemoglobin A1c Calcium 11.1 H Phosphorus NT-Pro-B Natriuret Pep Albumin 07/10/19 07/10/19 07/10/19 12:02 18:32 23:37 WBC RBC Hgb Hct RDW Plt Count Lymph % (Auto) [place] % (Auto) [place] # Seg Neutrophils % Seg Neuts % (Manual) Seg Neutrophils # Seg Neutrophils # Man Monocytes # (Manual) ABG pH ABG pO2 ABG HCO3 ABG O2 Saturation ABG Base Excess ABG Hemoglobin Oxyhemoglobin Sodium Chloride Carbon Dioxide BUN Creatinine Glucose POC Glucose 204 H 288 H 189 H Hemoglobin A1c Calcium Phosphorus NT-Pro-B Natriuret Pep Albumin 07/11/19 07/11/19 07/11/19 05:31 06:10 06:10 WBC 16.6 H RBC 3.60 L Hgb Hct RDW 16.8 H Plt Count Lymph % (Auto) [place] % (Auto) [place] # Seg Neutrophils % Seg Neuts % (Manual) Seg Neutrophils # Seg Neutrophils # Man Monocytes # (Manual) ABG pH ABG pO2 ABG HCO3 ABG O2 Saturation ABG Base Excess ABG Hemoglobin Oxyhemoglobin Sodium 130 L Chloride 87.4 L Carbon Dioxide BUN 47 H Creatinine 2.4 H Glucose 138 H POC Glucose 135 H Hemoglobin A1c Calcium 10.8 H Phosphorus NT-Pro-B Natriuret Pep Albumin 07/11/19 07/11/19 07/11/19 12:28 18:05 23:49 WBC RBC Hgb Hct RDW Plt Count Lymph % (Auto) [place] % (Auto) [place] # Seg Neutrophils % Seg Neuts % (Manual) Seg Neutrophils # Seg Neutrophils # Man Monocytes # (Manual) ABG pH ABG pO2 ABG HCO3 ABG O2 Saturation ABG Base Excess ABG Hemoglobin Oxyhemoglobin Sodium Chloride Carbon Dioxide BUN Creatinine Glucose POC Glucose 243 H 177 H 163 H Hemoglobin A1c Calcium Phosphorus NT-Pro-B Natriuret Pep Albumin 07/12/19 07/12/19 07/12/19 05:27 05:43 05:43 WBC 15.0 H RBC Hgb Hct RDW 17.5 H Plt Count Lymph % (Auto) [place] % (Auto) [place] # Seg Neutrophils % Seg Neuts % (Manual) Seg Neutrophils # Seg Neutrophils # Man Monocytes # (Manual) ABG pH ABG pO2 ABG HCO3 ABG O2 Saturation ABG Base Excess ABG Hemoglobin Oxyhemoglobin Sodium 128 L Chloride 85.7 L Carbon Dioxide BUN 76 H Creatinine 3.8 H D Glucose 157 H POC Glucose 156 H Hemoglobin A1c Calcium 10.8 H Phosphorus NT-Pro-B Natriuret Pep Albumin 07/12/19 07/12/19 07/13/19 12:03 18:30 00:03 WBC RBC Hgb Hct RDW Plt Count Lymph % (Auto) [place] % (Auto) [place] # Seg Neutrophils % Seg Neuts % (Manual) Seg Neutrophils # Seg Neutrophils # Man Monocytes # (Manual) ABG pH ABG pO2 ABG HCO3 ABG O2 Saturation ABG Base Excess ABG Hemoglobin Oxyhemoglobin Sodium Chloride Carbon Dioxide BUN Creatinine Glucose POC Glucose 162 H 183 H 187 H Hemoglobin A1c Calcium Phosphorus NT-Pro-B Natriuret Pep Albumin 07/13/19 07/13/19 07/13/19 05:50 05:56 07:50 WBC 13.5 H RBC 3.37 L Hgb 9.6 L Hct 28.8 L RDW 17.4 H Plt Count Lymph % (Auto) [place] % (Auto) [place] # Seg Neutrophils % Seg Neuts % (Manual) Seg Neutrophils # Seg Neutrophils # Man Monocytes # (Manual) ABG pH ABG pO2 110.8 H ABG HCO3 27.5 H ABG O2 Saturation ABG Base Excess ABG Hemoglobin 10.0 L Oxyhemoglobin Sodium Chloride Carbon Dioxide BUN Creatinine Glucose POC Glucose 216 H Hemoglobin A1c Calcium Phosphorus NT-Pro-B Natriuret Pep Albumin 07/13/19 07/13/19 07/13/19 07:50 13:18 18:09 WBC RBC Hgb Hct RDW Plt Count Lymph % (Auto) [place] % (Auto) [place] # Seg Neutrophils % Seg Neuts % (Manual) Seg Neutrophils # Seg Neutrophils # Man Monocytes # (Manual) ABG pH ABG pO2 ABG HCO3 ABG O2 Saturation ABG Base Excess ABG Hemoglobin Oxyhemoglobin Sodium 126 L Chloride 80.8 L Carbon Dioxide 21 L BUN 105 H Creatinine 4.7 H Glucose 215 H POC Glucose 187 H 202 H Hemoglobin A1c Calcium 10.3 H Phosphorus NT-Pro-B Natriuret Pep Albumin 07/13/19 07/13/19 07/14/19 19:44 23:23 04:17 WBC RBC Hgb Hct RDW 17.5 H Plt Count Lymph % (Auto) [place] % (Auto) [place] # Seg Neutrophils % Seg Neuts % (Manual) Seg Neutrophils # Seg Neutrophils # Man Monocytes # (Manual) ABG pH ABG pO2 ABG HCO3 ABG O2 Saturation ABG Base Excess ABG Hemoglobin Oxyhemoglobin Sodium 133 L D Chloride Carbon Dioxide BUN Creatinine Glucose POC Glucose 167 H Hemoglobin A1c Calcium Phosphorus NT-Pro-B Natriuret Pep Albumin 07/14/19 07/14/19 07/14/19 04:17 05:03 12:12 WBC RBC Hgb Hct RDW Plt Count Lymph % (Auto) [place] % (Auto) [place] # Seg Neutrophils % Seg Neuts % (Manual) Seg Neutrophils # Seg Neutrophils # Man Monocytes # (Manual) ABG pH ABG pO2 ABG HCO3 ABG O2 Saturation ABG Base Excess ABG Hemoglobin Oxyhemoglobin Sodium 131 L Chloride 88.8 L Carbon Dioxide BUN 47 H Creatinine 2.6 H Glucose 131 H POC Glucose 142 H 246 H Hemoglobin A1c Calcium Phosphorus NT-Pro-B Natriuret Pep Albumin 07/14/19 07/15/19 07/15/19 18:30 00:35 04:51 WBC RBC 3.51 L Hgb 9.9 L Hct 30.0 L RDW 17.6 H Plt Count 510 H Lymph % (Auto) [place] % (Auto) [place] # Seg Neutrophils % 72.4 H Seg Neuts % (Manual) Seg Neutrophils # Seg Neutrophils # Man Monocytes # (Manual) ABG pH ABG pO2 ABG HCO3 ABG O2 Saturation ABG Base Excess ABG Hemoglobin Oxyhemoglobin Sodium Chloride Carbon Dioxide BUN Creatinine Glucose POC Glucose 114 H 164 H Hemoglobin A1c Calcium Phosphorus NT-Pro-B Natriuret Pep Albumin 07/15/19 07/15/19 07/15/19 04:51 06:21 11:55 WBC RBC Hgb Hct RDW Plt Count Lymph % (Auto) [place] % (Auto) [place] # Seg Neutrophils % Seg Neuts % (Manual) Seg Neutrophils # Seg Neutrophils # Man Monocytes # (Manual) ABG pH ABG pO2 ABG HCO3 ABG O2 Saturation ABG Base Excess ABG Hemoglobin Oxyhemoglobin Sodium 134 L Chloride 88.7 L Carbon Dioxide BUN 78 H Creatinine 4.0 H D Glucose 141 H POC Glucose 135 H 172 H Hemoglobin A1c Calcium 10.4 H Phosphorus NT-Pro-B Natriuret Pep Albumin 07/15/19 07/15/19 07/15/19 17:46 18:10 23:20 WBC RBC Hgb Hct RDW Plt Count Lymph % (Auto) [place] % (Auto) [place] # Seg Neutrophils % Seg Neuts % (Manual) Seg Neutrophils # Seg Neutrophils # Man Monocytes # (Manual) ABG pH ABG pO2 ABG HCO3 ABG O2 Saturation ABG Base Excess ABG Hemoglobin Oxyhemoglobin Sodium Chloride Carbon Dioxide BUN Creatinine Glucose POC Glucose 203 H 237 H 184 H Hemoglobin A1c Calcium Phosphorus NT-Pro-B Natriuret Pep Albumin 07/16/19 07/16/19 07/16/19 04:44 04:44 05:44 WBC RBC Hgb Hct RDW 17.5 H Plt Count 605 H Lymph % (Auto) [place] % (Auto) [place] # Seg Neutrophils % 72.6 H Seg Neuts % (Manual) Seg Neutrophils # Seg Neutrophils # Man Monocytes # (Manual) ABG pH ABG pO2 ABG HCO3 ABG O2 Saturation ABG Base Excess ABG Hemoglobin Oxyhemoglobin Sodium Chloride 93.4 L Carbon Dioxide BUN 46 H Creatinine 2.6 H Glucose 125 H POC Glucose 147 H Hemoglobin A1c Calcium 10.5 H Phosphorus NT-Pro-B Natriuret Pep Albumin 07/16/19 07/16/19 07/16/19 12:17 17:55 18:06 WBC RBC Hgb Hct RDW Plt Count Lymph % (Auto) [place] % (Auto) [place] # Seg Neutrophils % Seg Neuts % (Manual) Seg Neutrophils # Seg Neutrophils # Man Monocytes # (Manual) ABG pH ABG pO2 ABG HCO3 ABG O2 Saturation ABG Base Excess ABG Hemoglobin Oxyhemoglobin Sodium Chloride Carbon Dioxide BUN Creatinine Glucose POC Glucose 222 H 129 H 121 H Hemoglobin A1c Calcium Phosphorus NT-Pro-B Natriuret Pep Albumin 07/17/19 07/17/19 07/17/19 00:31 03:58 03:58 WBC RBC Hgb Hct RDW 17.7 H Plt Count 647 H Lymph % (Auto) [place] % (Auto) 7.7 H [place] # Seg Neutrophils % Seg Neuts % (Manual) Seg Neutrophils # Seg Neutrophils # Man Monocytes # (Manual) ABG pH ABG pO2 ABG HCO3 ABG O2 Saturation ABG Base Excess ABG Hemoglobin Oxyhemoglobin Sodium 133 L Chloride 89.4 L Carbon Dioxide BUN 81 H Creatinine 3.5 H Glucose 139 H POC Glucose 195 H Hemoglobin A1c Calcium 10.8 H Phosphorus NT-Pro-B Natriuret Pep Albumin 07/17/19 05:50 WBC RBC Hgb Hct RDW Plt Count Lymph % (Auto) [place] % (Auto) [place] # Seg Neutrophils % Seg Neuts % (Manual) Seg Neutrophils # Seg Neutrophils # Man Monocytes # (Manual) ABG pH ABG pO2 ABG HCO3 ABG O2 Saturation ABG Base Excess ABG Hemoglobin Oxyhemoglobin Sodium Chloride Carbon Dioxide BUN Creatinine Glucose POC Glucose 137 H Hemoglobin A1c Calcium Phosphorus NT-Pro-B Natriuret Pep Albumin Chest x-ray: image reviewed Allied health notes reviewed: RT
--- NOTE | 2019-07-17 11:54 | Progress Note ---
Assessment and Plan Acute hypoxic respiratory failure on mechanical ventilation Acute metabolic encephalopathy ESRD on HD HTN Sepsis Hx of seizures DM Type 2 on insulin Hypercalemia Hyponatremia Plan: - HD today for clearance and volume removal - Assess dialysis needs daily - Epogen dosing for anemia management as needed - Currently Intubated on Vent - as per Pulmonology - Strict I&O - Renally dose meds - This pt undergoes outpatient HD at [facility] every MWF Keith Monroy MD [phone] Subjective Date of service: 07/17/19 Principal diagnosis: Acute hypoxemic resp failure; AMS; Severe Sepsis; ESRD; CHF; HTN; Seizure Interval history: intubated, no family at bedside Objective - Vital Signs Vital signs: Vital Signs - 12hr 07/16/19 07/17/19 07/17/19 23:58 00:00 00:56 Temperature 97.8 F Pulse Rate 67 69 Pulse Rate [ 68 From Monitor] Respiratory 12 Rate Blood Pressure 176/70 145/35 O2 Sat by Pulse 100 100 Oximetry 07/17/19 07/17/19 07/17/19 01:00 02:00 03:00 Temperature Pulse Rate 70 63 66 Pulse Rate [ From Monitor] Respiratory 12 12 13 Rate Blood Pressure 145/35 140/33 130/30 O2 Sat by Pulse 100 100 100 Oximetry 07/17/19 07/17/19 07/17/19 03:34 04:00 05:00 Temperature 99.2 F Pulse Rate 66 69 Pulse Rate [ 70 From Monitor] Respiratory 12 14 Rate Blood Pressure 146/33 157/42 O2 Sat by Pulse 99 100 Oximetry 07/17/19 07/17/19 07/17/19 05:01 06:00 07:00 Temperature Pulse Rate 71 71 69 Pulse Rate [ From Monitor] Respiratory 12 13 Rate Blood Pressure 157/42 160/46 173/68 O2 Sat by Pulse 100 99 100 Oximetry 07/17/19 07/17/19 07/17/19 07:18 08:00 09:00 Temperature 98.9 F Pulse Rate 63 66 67 Pulse Rate [ 66 From Monitor] Respiratory 12 12 Rate Blood Pressure 173/68 178/62 164/65 O2 Sat by Pulse 100 100 100 Oximetry 07/17/19 07/17/19 10:00 11:00 Temperature Pulse Rate 69 68 Pulse Rate [ From Monitor] Respiratory 19 18 Rate Blood Pressure 181/63 180/64 O2 Sat by Pulse 100 100 Oximetry - General Appearance General appearance: well-developed, well-nourished EENT: ATNC, PERRL, mucous membranes dry Neck: no JVD, no carotid bruit Respiratory: Present: Clear to Ascultation Cardiology: regular, S1S2 Gastrointestinal: normoactive bowel sounds Integumentary: no rash, warm and dry Neurologic: other (intubated) Musculoskeletal: other (no edema in BLE) Psychiatric: other (intubated) - Lab 07/17/19 03:58 07/17/19 03:58 Most recent lab results ABG pH 7.425 pH Units (7.350-7.450) 07/13/19 05:50 ABG pCO2 42.9 mm Hg 07/13/19 05:50 ABG pO2 110.8 mm Hg (80.0-90.0) H 07/13/19 05:50 ABG HCO3 27.5 mmol/L (20.0-26.0) H 07/13/19 05:50 ABG O2 Saturation 98.0 % (95.0-99.0) 07/13/19 05:50 Calcium 10.8 mg/dL (8.4-10.2) H 07/17/19 03:58 Phosphorus 2.60 mg/dL (2.5-4.5) D 07/09/19 04:29 Medications & Allergies - Medications Allergies/Adverse Reactions: Allergies No Known Allergies Allergy (Verified 07/03/19 10:58) Home Medications: Home Medications Medication Instructions Recorded Confirmed Last Taken Type Amlodipine Besylate [Norvasc] 10 mg PO DAILY 06/24/19 07/04/19 Unknown History AtorvaSTATin [Lipitor] 20 mg PO QHS 06/24/19 07/04/19 Unknown History Bumetanide 1 mg PO DAILY 06/24/19 07/04/19 Unknown History Cinacalcet HCl 30 mg PO DAILY 06/24/19 07/04/19 Unknown History Divalproex Sodium [Depakote 500 mg PO BID 06/24/19 07/04/19 Unknown History Sprinkle] Lispro Insulin [HumaLOG] 0 - 200 unit SQ ACHS 06/24/19 07/04/19 Unknown History Vit B Comp No.3/Folic/C/Biotin 1 each PO DAILY 06/24/19 07/04/19 Unknown History [Nephro-Umu Rx Tablet] carvediloL [Coreg] 25 mg PO BID 06/24/19 07/04/19 Unknown History hydrALAZINE [Apresoline TAB] 50 mg PO Q8HR 06/24/19 07/04/19 Unknown History ALBUTEROL NEB's [Proventil 0.083% 2.5 mg IH TIDRT #30 nebu 06/30/19 07/04/19 Unknown Rx NEBS] Lactulose [Cephulac] 20 gm PO Q8HR oral.liqd 06/30/19 07/04/19 Unknown Rx Sevelamer Carbonate [Renvela] 800 mg PO TIDWM tablet 06/30/19 07/04/19 Unknown Rx risperiDONE [RisperDAL] 0.5 mg PO BID tablet 06/30/19 07/04/19 Unknown Rx Active Medications: Generic Name Dose Route Start Last Admin Trade Name Freq PRN Reason Stop Dose Admin Acetaminophen 650 mg 07/08/19 10:00 Tylenol [place] Q4H PRN Pain, Mild (1-3) Albumin Human 25 gm 07/06/19 13:42 07/08/19 11:59 Alburx 25% (Albumin) IV 25 gm FEDE PRN Administration Hypotension Lipase/Protease/Amylase 1 each 07/05/19 16:27 Pancreaze 10,500 Unit FEEDTUBE PRN PRN For Clogged Feeding Tube Dextrose 0 ml 07/03/19 04:34 D50w (25gm) Syringe IV Q30MIN PRN Hypoglycemia Protocol Docusate Sodium 100 mg 07/15/19 10:00 07/17/19 09:45 Colace FEEDTUBE 100 mg BID YANG Administration Famotidine 20 mg 07/07/19 10:00 07/17/19 09:46 Pepcid PO 20 mg DAILY YANG Administration Heparin Sodium (Porcine) 5,000 unit 07/03/19 10:00 07/17/19 09:46 Heparin SUB-Q 5,000 unit Q12HR YANG Administration Hydrophilic Ointment 1 applic 07/03/19 00:53 Vaseline Lip Therapy TP Q2HR PRN Dry Lips Fentanyl Citrate 2,000 mcg in 100 mls @ 2.608 mls/hr 07/03/19 01:00 07/04/19 18:10 Fentanyl Drip Premix IV Infused TITR YANG Titration Protocol 1 MCG/KG/HR Sodium Chloride 100 mls @ 999 mls/hr 07/05/19 13:41 Nacl 0.9% IV FEDE PRN Hypotension Insulin Glargine 18 units 07/10/19 13:43 07/17/19 09:45 Lantus SUB-Q 18 units DAILY YANG Administration Insulin Human Lispro 0 unit 07/03/19 06:00 07/17/19 05:57 Humalog SUB-Q Not Given Q6HR [facility] Protocol Multi-Ingred Cream/Lotion/Oil/Oint 1 applic 07/03/19 00:53 Artificial Tears Ophth Oint OU Q4HR PRN Dry Eye(s) Simple Syrup 15 ml 07/05/19 16:27 Simple Syrup FEEDTUBE PRN PRN Hypoglycemia Simple Syrup 30 ml 07/05/19 16:27 Simple Syrup FEEDTUBE PRN PRN Hypoglycemia Sodium Bicarbonate 325 mg 07/05/19 16:27 Sodium Bicarbonate FEEDTUBE PRN PRN For Clogged Feeding Tube Sodium Chloride 10 ml 07/03/19 10:00 07/17/19 09:46 Sodium Chloride Flush Syringe 10 Ml IV 10 ml BID YANG Administration Sodium Chloride 10 ml 07/03/19 04:34 07/05/19 10:42 Sodium Chloride Flush Syringe 10 Ml IV 10 ml PRN PRN Administration LINE FLUSH
[2019-07-17] MEDS: amLODIPine 10 MG TAB PO SCH (12:42)
[2019-07-17] MEDS ORDERED: FOLIC ACID/VIT B COMP W-C 1 MG (RENAL CAPS) PO ONE (13:00)
--- NOTE | 2019-07-17 13:40 | Progress Note ---
Assessment and Plan Assessment and plan: Sepsis Source is unclear. Etiology may be secondary to pneumonia versus minimal cellulitis around sacral decubitus. If WBC worsens, consider CT chest, abdomen and pelvis with IV contrast. -Continue empiric antibiotics per infectious disease Acute hypoxic respiratory failure -Continue mechanical ventilation per pulmonary. -Etiology secondary to CHF versus pneumonia. -Await surgery to perform trach and PEG Toxic metabolic encephalopathy -Neuro checks -Continue to treat underlying causes. ESRD on HD -M/W/F -Avoid nephrotoxic agents -Renal dose all meds -Nephrology following Congestive heart Failure -BNP >26338 on admission -Monitor input and output. -Cardiology following and reported no evidence of volume overload Hypertension -Continue to monitor BP -Patient is normotensive off blood pressure medications. Insulin-dependent diabetes -POC BG monitoring -SSI coverage prn Hx Seizure -Continue anticonvulsant meds -Seizure precautions. Sacral decubitus ulcer CT non contrasted without evidence of fluid collection or osteomyelitis. DVT PPX -On Heparin Disposition. Discussed with case management possibility of LTAC The high probability of a clinically significant, sudden or life threatening deterioration of the [respiratory] system(s) required my full and direct attention, intervention and personal management. The aggregate critical care time was [31] minutes. This time is in addition to time spent performing repo rted procedures but includes the following: [x] Data Review and interpretation [x] Patient assessment and monitoring of vital signs [x] Documentation [x] Medication orders and management History Interval history: Patient remains orally intubated Hospitalist Physical - Constitutional Vitals: Temp Pulse Resp BP Pulse Ox 98.9 F 74 18 176/65 100 07/17/19 08:00 07/17/19 12:42 07/17/19 11:00 07/17/19 12:42 07/17/19 11:00 General appearance: Present: other (intubated on the vent) - EENT Eyes: Present: PERRL, EOM intact ENT: hearing intact, clear oral mucosa, dentition normal - Neck Neck: Present: supple, normal ROM - Respiratory Respiratory effort: normal Respiratory: bilateral: CTA - Cardiovascular Rhythm: regular Heart Sounds: Present: S1 & S2. Absent: gallop, rub - Extremities Extremities: no ischemia, No edema, Full ROM - Abdominal General gastrointestinal: soft, non-tender, non-distended, normal bowel sounds - Integumentary Integumentary: Present: clear, warm, dry - Neurologic Neurologic: CNII-XII intact, moves all extremities MATT score - Matt Score Age > 65: (0) No Aspirin use within the Past 7 Days: (0) No 3 or more CAD Risk Factors: (1) Yes 2 or more Angina events in past 24 hrs: (0) No Known CAD with more than 50% Stenosis: (0) No Elevated Cardiac Markers: (1) Yes ST Deviation Greater than 0.5mm: (0) No MATT Score: 2 Results - Labs CBC & Chem 7: 07/17/19 03:58 07/17/19 03:58 Labs: Laboratory Last Values WBC 9.7 K/mm3 (4.5-11.0) 07/17/19 03:58 RBC 3.77 M/mm3 (3.65-5.03) 07/17/19 03:58 Hgb 10.7 gm/dl (10.1-14.3) 07/17/19 03:58 Hct 32.9 % (30.3-42.9) 07/17/19 03:58 MCV 87 fl (79-97) 07/17/19 03:58 MCH 28 pg (28-32) 07/17/19 03:58 MCHC 33 % (30-34) 07/17/19 03:58 RDW 17.7 % (13.2-15.2) H 07/17/19 03:58 Plt Count 647 K/mm3 (140-440) H 07/17/19 03:58 Lymph % (Auto) 20.5 % (13.4-35.0) 07/17/19 03:58 [place] % (Auto) 7.7 % (0.0-7.3) H 07/17/19 03:58 Eos % (Auto) 2.8 % (0.0-4.3) 07/17/19 03:58 Baso % (Auto) 0.6 % (0.0-1.8) 07/17/19 03:58 Lymph # 2.0 K/mm3 (1.2-5.4) 07/17/19 03:58 [place] # 0.7 K/mm3 (0.0-0.8) 07/17/19 03:58 Eos # 0.3 K/mm3 (0.0-0.4) 07/17/19 03:58 Baso # 0.1 K/mm3 (0.0-0.1) 07/17/19 03:58 Add Manual Diff Complete 07/10/19 04:55 Total Counted 100 07/10/19 04:55 Seg Neutrophils % 68.4 % (40.0-70.0) 07/17/19 03:58 Seg Neuts % (Manual) 81.0 % (40.0-70.0) H 07/10/19 04:55 Band Neutrophils % 0 % 07/10/19 04:55 Lymphocytes % (Manual) 14.0 % (13.4-35.0) 07/10/19 04:55 Reactive Lymphs % (Man) 0 % 07/10/19 04:55 Monocytes % (Manual) 4.0 % (0.0-7.3) 07/10/19 04:55 Eosinophils % (Manual) 0 % (0.0-4.3) 07/10/19 04:55 Basophils % (Manual) 0 % (0.0-1.8) 07/10/19 04:55 Metamyelocytes % 1.0 % 07/10/19 04:55 Myelocytes % 0 % 07/10/19 04:55 Promyelocytes % 0 % 07/10/19 04:55 Blast Cells % 0 % 07/10/19 04:55 Nucleated RBC % Not Reportable 07/10/19 04:55 Seg Neutrophils # 6.6 K/mm3 (1.8-7.7) 07/17/19 03:58 Seg Neutrophils # Man 19.4 K/mm3 (1.8-7.7) H 07/10/19 04:55 Band Neutrophils # 0.0 K/mm3 07/10/19 04:55 Lymphocytes # (Manual) 3.3 K/mm3 (1.2-5.4) 07/10/19 04:55 Abs React Lymphs (Man) 0.0 K/mm3 07/10/19 04:55 Monocytes # (Manual) 1.0 K/mm3 (0.0-0.8) H 07/10/19 04:55 Eosinophils # (Manual) 0.0 K/mm3 (0.0-0.4) 07/10/19 04:55 Basophils # (Manual) 0.0 K/mm3 (0.0-0.1) 07/10/19 04:55 Metamyelocytes # 0.2 K/mm3 07/10/19 04:55 Myelocytes # 0.0 K/mm3 07/10/19 04:55 Promyelocytes # 0.0 K/mm3 07/10/19 04:55 Blast Cells # 0.0 K/mm3 07/10/19 04:55 WBC Morphology Not Reportable 07/10/19 04:55 Hypersegmented Neuts Not Reportable 07/10/19 04:55 Hyposegmented Neuts Not Reportable 07/10/19 04:55 Hypogranular Neuts Not Reportable 07/10/19 04:55 Smudge Cells Not Reportable 07/10/19 04:55 Toxic Granulation Not Reportable 07/10/19 04:55 Toxic Vacuolation Not Reportable 07/10/19 04:55 Dohle Bodies Not Reportable 07/10/19 04:55 Pelger-Huet Anomaly Not Reportable 07/10/19 04:55 Andrei Rods Not Reportable 07/10/19 04:55 Platelet Estimate Consistent w auto 07/10/19 04:55 Clumped Platelets Not Reportable 07/10/19 04:55 Plt Clumps, EDTA Not Reportable 07/10/19 04:55 Large Platelets Not Reportable 07/10/19 04:55 Giant Platelets Not Reportable 07/10/19 04:55 Platelet Satelliting Not Reportable 07/10/19 04:55 Plt Morphology Comment Not Reportable 07/10/19 04:55 RBC Morphology Not Reportable 07/10/19 04:55 Dimorphic RBCs Not Reportable 07/10/19 04:55 Polychromasia Not Reportable 07/10/19 04:55 Hypochromasia Not Reportable 07/10/19 04:55 Poikilocytosis Not Reportable 07/10/19 04:55 Anisocytosis Not Reportable 07/10/19 04:55 Microcytosis Not Reportable 07/10/19 04:55 Macrocytosis Not Reportable 07/10/19 04:55 Spherocytes Not Reportable 07/10/19 04:55 Pappenheimer Bodies Not Reportable 07/10/19 04:55 Sickle Cells Not Reportable 07/10/19 04:55 Target Cells Not Reportable 07/10/19 04:55 Tear Drop Cells Not Reportable 07/10/19 04:55 Ovalocytes Not Reportable 07/10/19 04:55 Helmet Cells Not Reportable 07/10/19 04:55 [place] Bodies Not Reportable 07/10/19 04:55 [place] Rings Not Reportable 07/10/19 04:55 Trem[place]ne Cells Not Reportable 07/10/19 04:55 Bite Cells Not Reportable 07/10/19 04:55 Crenated Cell Not Reportable 07/10/19 04:55 Elliptocytes Not Reportable 07/10/19 04:55 Acanthocytes (Spur) Not Reportable 07/10/19 04:55 Rouleaux Not Reportable 07/10/19 04:55 Hemoglobin C Crystals Not Reportable 07/10/19 04:55 Schistocytes Rare 07/10/19 04:55 Malaria parasites Not Reportable 07/10/19 04:55 Tristen Bodies Not Reportable 07/10/19 04:55 Hem Pathologist Commnt No 07/10/19 04:55 ABG pH 7.425 pH Units (7.350-7.450) 07/13/19 05:50 ABG pCO2 42.9 mm Hg 07/13/19 05:50 ABG pO2 110.8 mm Hg (80.0-90.0) H 07/13/19 05:50 ABG HCO3 27.5 mmol/L (20.0-26.0) H 07/13/19 05:50 ABG O2 Saturation 98.0 % (95.0-99.0) 07/13/19 05:50 ABG O2 Content 13.7 (0.0-44) 07/13/19 05:50 ABG Base Excess 2.8 mmol/L (-2.0-3.0) 07/13/19 05:50 ABG Hemoglobin 10.0 gm/dl (12.0-16.0) L 07/13/19 05:50 ABG Carboxyhemoglobin 1.4 % (0.0-5.0) 07/13/19 05:50 ABG Methemoglobin 0.5 % (0.0-1.5) 07/13/19 05:50 Oxyhemoglobin 96.2 % (95.0-99.0) 07/13/19 05:50 FiO2 40 % 07/13/19 05:50 Sodium 133 mmol/L (137-145) L 07/17/19 03:58 Potassium 4.7 mmol/L (3.6-5.0) 07/17/19 03:58 Chloride 89.4 mmol/L (98-107) L 07/17/19 03:58 Carbon Dioxide 24 mmol/L (22-30) 07/17/19 03:58 Anion Gap 24 mmol/L 07/17/19 03:58 BUN 81 mg/dL (7-17) H 07/17/19 03:58 Creatinine 3.5 mg/dL (0.7-1.2) H 07/17/19 03:58 Estimated GFR 13 ml/min 07/17/19 03:58 BUN/Creatinine Ratio 23 % 07/17/19 03:58 Glucose 139 mg/dL (65-100) H 07/17/19 03:58 POC Glucose 176 (70-105) H 07/17/19 13:06 Hemoglobin A1c 7.0 % (4-6) H 07/03/19 01:00 Lactic Acid 1.20 mmol/L (0.7-2.0) 07/03/19 04:13 Calcium 10.8 mg/dL (8.4-10.2) H 07/17/19 03:58 Phosphorus 2.60 mg/dL (2.5-4.5) D 07/09/19 04:29 Total Bilirubin 0.30 mg/dL (0.1-1.2) 07/03/19 01:00 AST 22 units/L (5-40) 07/03/19 01:00 ALT 9 units/L (7-56) 07/03/19 01:00 Alkaline Phosphatase 101 units/L (35-129) 07/03/19 01:00 Ammonia 35.0 umol/L (25-60) 07/03/19 01:58 NT-Pro-B Natriuret Pep > 28248 pg/mL (0-900) H 07/03/19 01:00 Total Protein 7.0 g/dL (6.3-8.2) 07/03/19 01:00 Albumin 2.5 g/dL (3.9-5) L 07/03/19 01:00 Albumin/Globulin Ratio 0.6 % 07/03/19 01:00 TSH 2.600 mlU/mL (0.270-4.200) 07/03/19 01:00 Urine Color Yellow (Yellow) 07/03/19 Unknown Urine Turbidity Clear (Clear) 07/03/19 Unknown Urine pH 6.0 (5.0-7.0) 07/03/19 Unknown Ur Specific [place] 1.012 (1.003-1.030) 07/03/19 Unknown Urine Protein >500 mg/dL (Negative) 07/03/19 Unknown Urine Glucose (UA) >=500 mg/dL (Negative) 07/03/19 Unknown Urine Ketones Neg mg/dL (Negative) 07/03/19 Unknown Urine Blood Neg (Negative) 07/03/19 Unknown Urine Nitrite Neg (Negative) 07/03/19 Unknown Ur Reducing Substances Not Reportable 07/03/19 Unknown Urine Bilirubin Neg (Negative) 07/03/19 Unknown Urine Ictotest Not Reportable 07/03/19 Unknown Urine Urobilinogen < 2.0 mg/dL (<2.0) 07/03/19 Unknown Ur Leukocyte Esterase Neg (Negative) 07/03/19 Unknown Urine WBC (Auto) 1.0 /HPF (0.0-6.0) 07/03/19 Unknown Urine RBC (Auto) 2.0 /HPF (0.0-6.0) 07/03/19 Unknown U Epithel Cells (Auto) < 1.0 /HPF (0-13.0) 07/03/19 Unknown Urine Mucus Few /HPF 07/03/19 Unknown Random Vancomycin 18.7 ug/mL (0-40.0) 07/08/19 04:38 Influenza A (Rapid) Negative (Negative) 07/05/19 14:30 Influenza B (Rapid) Negative (Negative) 07/05/19 14:30 Active Medications - Current Medications Current Medications: Generic Name Dose Route Start Last Admin Trade Name Freq PRN Reason Stop Dose Admin Acetaminophen 650 mg 07/08/19 10:00 Tylenol [place] Q4H PRN Pain, Mild (1-3) Albumin Human 25 gm 07/06/19 13:42 07/08/19 11:59 Alburx 25% (Albumin) IV 25 gm FEDE PRN Administration Hypotension Amlodipine Besylate 10 mg 07/17/19 13:00 07/17/19 12:42 Amlodipine PO 10 mg QDAY [facility] Administration Lipase/Protease/Amylase 1 each 07/05/19 16:27 Pancreaze 10,500 Unit FEEDTUBE PRN PRN For Clogged Feeding Tube Bumetanide 1 mg 07/18/19 10:00 Bumex PO QDAY YANG Carvedilol 25 mg 07/17/19 22:00 Coreg PO BID [facility] Cinacalcet 30 mg 07/18/19 10:00 Sensipar PO QDAY YANG Dextrose 0 ml 07/03/19 04:34 D50w (25gm) Syringe IV Q30MIN PRN Hypoglycemia Protocol Docusate Sodium 100 mg 07/15/19 10:00 07/17/19 09:45 Colace FEEDTUBE 100 mg BID YANG Administration Famotidine 20 mg 07/07/19 10:00 07/17/19 09:46 Pepcid PO 20 mg DAILY [facility] Administration Heparin Sodium (Porcine) 5,000 unit 07/03/19 10:00 07/17/19 09:46 Heparin SUB-Q 5,000 unit Q12HR YANG Administration Hydralazine HCl 50 mg 07/17/19 14:00 Apresoline PO Q8HR [facility] Hydrophilic Ointment 1 applic 07/03/19 00:53 Vaseline Lip Therapy TP Q2HR PRN Dry Lips Fentanyl Citrate 2,000 mcg in 100 mls @ 2.608 mls/hr 07/03/19 01:00 07/04/19 18:10 Fentanyl Drip Premix IV Infused TITR [facility] Titration Protocol 1 MCG/KG/HR Sodium Chloride 100 mls @ 999 mls/hr 07/05/19 13:41 Nacl 0.9% IV FEDE PRN Hypotension Insulin Glargine 18 units 07/10/19 13:43 07/17/19 09:45 Lantus SUB-Q 18 units DAILY [facility] Administration Insulin Human Lispro 0 unit 07/03/19 06:00 07/17/19 05:57 Humalog SUB-Q Not Given Q6HR [facility] Protocol Multi-Ingred Cream/Lotion/Oil/Oint 1 applic 07/03/19 00:53 Artificial Tears Ophth Oint OU Q4HR PRN Dry Eye(s) Risperidone 0.5 mg 07/17/19 22:00 Risperdal Oral Liqd PO BID [facility] Simple Syrup 15 ml 07/05/19 16:27 Simple Syrup FEEDTUBE PRN PRN Hypoglycemia Simple Syrup 30 ml 07/05/19 16:27 Simple Syrup FEEDTUBE PRN PRN Hypoglycemia Sodium Bicarbonate 325 mg 07/05/19 16:27 Sodium Bicarbonate FEEDTUBE PRN PRN For Clogged Feeding Tube Sodium Chloride 10 ml 07/03/19 10:00 07/17/19 09:46 Sodium Chloride Flush Syringe 10 Ml IV 10 ml BID YANG Administration Sodium Chloride 10 ml 07/03/19 04:34 07/05/19 10:42 Sodium Chloride Flush Syringe 10 Ml IV 10 ml PRN PRN Administration LINE FLUSH Valproic Acid 500 mg 07/17/19 22:00 Depakene Liq FEEDTUBE BID YANG Nutrition/Malnutrition Assess - Dietary Evaluation Nutrition/Malnutrition Findings: Nutrition Notes Start: 07/06/19 08:50 Freq: Status: Active Protocol: Document 07/14/19 11:50 MK (Rec: 07/14/19 11:59 MK [id number]) Co-Sign 07/14/19 11:50 LP Nutrition Notes Initial or Follow up Reassessment Current Diagnosis CKD (stage V CKD),Decubitus( Pressure Ulcer),Diabetes,Heart Failure,Respiratory Failure Other Pertinent Diagnosis on HD, Sacral PU, seizures, bipolar disorder, metabolic encephalopathy Current Diet Nepro 1.8 at 35 ml/hr Labs/Tests Na 131 BUN 47 Cr 2.6 Pertinent Medications Lantus Heparin Height 5 ft 2 in Weight 50.3 kg [place] Body Weight (kg) 50.00 BMI 20.2 Weight change and time frame wt gain noted with renal Weight Status Appropriate Subjective/Other Information FU for tolerance and wt. Nepro 1.8 running at 35ml/hr. Percent of energy/protein needs met: 100%/100% Burn Absent Trauma Absent GI Symptoms None Current % PO Negligible Minimum of two criteria No physical signs of malnutrition #2 Nutrition Diagnosis Increased nutrient needs ( specify in comment below) Comments: Protein Diagnosis Progress(for reassessment Continues documentation) #1 Nutrition Diagnosis Inadequate oral intake Diagnosis Progress(for reassessment Continues documentation) Is patient on ventilator? Yes Is Patient Ambulatory and/or Out of Bed No REE-(Shubuta-. Jend-confined to bed) [phone] Calculation Used for Recommendations [facility] Additional Notes Protein: 58 -96g (1.2-2g/kg) Fluid: 1-1.5 L/ day Nutrition Intervention Change Diet Order: TF Nutrition Support: Nepro 1.8 at 35ml/hr Change flush to 100 ml q4h. Kcal 1,512 Protein (gm) 68 Fluid (mL) 611 Goal #1 TF tolerance Goal #2 Wound healing Anticipated Discharge Needs: unable to determine at this time Follow-Up By: 07/21/19 Additional Comments F/U for TF tolerance.
[2019-07-17] MEDS: hydrALAZINE 25 MG TAB PO SCH ×2 (15:26→22:46)
[2019-07-17] MEDS ORDERED: DIVALPROEX SPRINKLE 125 MG CAP PO SCH (22:00)
[2019-07-17] MEDS: carvediloL 25 MG TAB PO SCH (22:47)
[2019-07-17] MEDS: VALPROIC ACID 250 MG/5 ML ORAL LIQD FEEDTUBE SCH (22:47)
[2019-07-18] MEDS: INSULIN LISPRO 100 UNIT/ML SUB-Q SCH ×3 (01:38→12:49)
[2019-07-18 05:31] LABS: Basophils % (Auto) 0.6 % (0.0-1.8); Eosinophils # (Auto) 0.1 K/mm3 (0.0-0.4); Eosinophils % (Auto) 1.4 % (0.0-4.3); Hematocrit 33.4 % (30.3-42.9); Hemoglobin 10.8 gm/dl (10.1-14.3); Lymphocytes # (Auto) 1.5 K/mm3 (1.2-5.4); Lymphocytes % (Auto) 19.7 % (13.4-35.0); Mean Corpuscular HGB Conc 32 % (30-34); Mean Corpuscular Volume 87 fl (79-97); Monocytes # (Auto) 0.4 K/mm3 (0.0-0.8); Monocytes % (Auto) 5.3 % (0.0-7.3); Platelet Count 645 K/mm3 (140-440); Red Blood Count 3.86 M/mm3 (3.65-5.03); Red Cell Distribution Width 17.4 % (13.2-15.2)
[2019-07-18 05:56] LABS: Calcium 10.6 mg/dL (8.4-10.2)
[2019-07-18] MEDS: hydrALAZINE 25 MG TAB PO SCH ×3 (06:41→23:01)
[2019-07-18] MEDS: risperiDONE 1 MG/1 ML ORAL LIQD PO SCH ×3 (06:42→23:04)
[2019-07-18] MEDS: VALPROIC ACID 250 MG/5 ML ORAL LIQD FEEDTUBE SCH ×2 (10:06→23:00)
[2019-07-18] MEDS: FAMOTIDINE 20 MG TAB PO SCH (10:07)
[2019-07-18] MEDS: amLODIPine 10 MG TAB PO SCH (10:07)
[2019-07-18] MEDS: CINACALCET 30 MG TAB PO SCH (10:07)
[2019-07-18] MEDS: DOCUSATE SODIUM 100 MG/10 ML ORAL LIQD FEEDTUBE SCH ×2 (10:07→23:00)
--- NOTE | 2019-07-18 10:07 | Progress Note ---
Assessment and Plan Acute hypoxic respiratory failure on mechanical ventilation Acute metabolic encephalopathy ESRD on HD HTN Sepsis Hx of seizures DM Type 2 on insulin Hypercalemia Hyponatremia Plan: - s/p HD yesterday, no HD today. - Assess dialysis needs daily - Epogen dosing for anemia management as needed - Currently Intubated on Vent - as per Pulmonology - Strict I&O - Renally dose meds - This pt undergoes outpatient HD at [facility] every MWF Robert Huggins MD [phone] Subjective Date of service: 07/18/19 Principal diagnosis: Acute hypoxemic resp failure; AMS; Severe Sepsis; ESRD; CHF; HTN; Seizure Interval history: Tolerated HD yesterday. Objective - Exam Narrative Exam: General appearance: well-developed, well-nourished EENT: ATNC, PERRL, mucous membranes dry Neck: no JVD, no carotid bruit Respiratory: Present: Clear to Ascultation Cardiology: regular, S1S2 Gastrointestinal: normoactive bowel sounds Integumentary: no rash, warm and dry Neurologic: other (intubated) Musculoskeletal: other (no edema in BLE) Psychiatric: other (intubated) - Vital Signs Vital signs: Vital Signs - 12hr 07/17/19 07/17/19 07/17/19 22:46 22:47 23:00 Temperature Pulse Rate 83 83 81 Pulse Rate [ From Monitor] Respiratory 13 Rate Blood Pressure 153/65 153/65 153/62 O2 Sat by Pulse 100 Oximetry 07/17/19 07/17/19 07/18/19 23:05 23:29 00:00 Temperature 98.4 F 98.2 F Pulse Rate 86 79 Pulse Rate [ 79 From Monitor] Respiratory 13 15 Rate Blood Pressure 153/62 121/51 O2 Sat by Pulse 100 100 Oximetry 07/18/19 07/18/19 07/18/19 00:01 01:00 02:00 Temperature Pulse Rate 78 79 80 Pulse Rate [ From Monitor] Respiratory 12 12 12 Rate Blood Pressure 121/51 132/52 134/54 O2 Sat by Pulse 99 100 100 Oximetry 07/18/19 07/18/19 07/18/19 03:00 04:00 05:01 Temperature 98.2 F Pulse Rate 82 75 78 Pulse Rate [ 80 From Monitor] Respiratory 14 14 13 Rate Blood Pressure 132/51 124/49 132/49 O2 Sat by Pulse 100 100 Oximetry 07/18/19 07/18/19 07/18/19 06:00 06:41 08:02 Temperature Pulse Rate 73 74 76 Pulse Rate [ From Monitor] Respiratory 13 Rate Blood Pressure 136/50 136/50 148/54 O2 Sat by Pulse 99 Oximetry - Lab 07/18/19 05:15 07/18/19 05:15 Most recent lab results ABG pH 7.425 pH Units (7.350-7.450) 07/13/19 05:50 ABG pCO2 42.9 mm Hg 07/13/19 05:50 ABG pO2 110.8 mm Hg (80.0-90.0) H 07/13/19 05:50 ABG HCO3 27.5 mmol/L (20.0-26.0) H 07/13/19 05:50 ABG O2 Saturation 98.0 % (95.0-99.0) 07/13/19 05:50 Calcium 10.6 mg/dL (8.4-10.2) H 07/18/19 05:15 Phosphorus 2.60 mg/dL (2.5-4.5) D 07/09/19 04:29 Medications & Allergies - Medications Allergies/Adverse Reactions: Allergies No Known Allergies Allergy (Verified 07/03/19 10:58) Home Medications: Home Medications Medication Instructions Recorded Confirmed Last Taken Type Amlodipine Besylate [Norvasc] 10 mg PO DAILY 06/24/19 07/04/19 Unknown History AtorvaSTATin [Lipitor] 20 mg PO QHS 06/24/19 07/04/19 Unknown History Bumetanide 1 mg PO DAILY 06/24/19 07/04/19 Unknown History Cinacalcet HCl 30 mg PO DAILY 06/24/19 07/04/19 Unknown History Divalproex Sodium [Depakote 500 mg PO BID 06/24/19 07/04/19 Unknown History Sprinkle] Lispro Insulin [HumaLOG] 0 - 200 unit SQ ACHS 06/24/19 07/04/19 Unknown History Vit B Comp No.3/Folic/C/Biotin 1 each PO DAILY 06/24/19 07/04/19 Unknown History [Nephro-Umu Rx Tablet] carvediloL [Coreg] 25 mg PO BID 06/24/19 07/04/19 Unknown History hydrALAZINE [Apresoline TAB] 50 mg PO Q8HR 06/24/19 07/04/19 Unknown History ALBUTEROL NEB's [Proventil 0.083% 2.5 mg IH TIDRT #30 nebu 06/30/19 07/04/19 Unknown Rx NEBS] Lactulose [Cephulac] 20 gm PO Q8HR oral.liqd 06/30/19 07/04/19 Unknown Rx Sevelamer Carbonate [Renvela] 800 mg PO TIDWM tablet 06/30/19 07/04/19 Unknown Rx risperiDONE [RisperDAL] 0.5 mg PO BID tablet 06/30/19 07/04/19 Unknown Rx Active Medications: Generic Name Dose Route Start Last Admin Trade Name Freq PRN Reason Stop Dose Admin Acetaminophen 650 mg 07/08/19 10:00 Tylenol NJ Q4H PRN Pain, Mild (1-3) Albumin Human 25 gm 07/06/19 13:42 07/08/19 11:59 Alburx 25% (Albumin) IV 25 gm FEDE PRN Administration Hypotension Amlodipine Besylate 10 mg 07/17/19 13:00 07/17/19 12:42 Amlodipine PO 10 mg QDAY YANG Administration Lipase/Protease/Amylase 1 each 07/05/19 16:27 Pancreaze 10,500 Unit FEEDTUBE PRN PRN For Clogged Feeding Tube Bumetanide 1 mg 07/18/19 10:00 Bumex PO QDAY YANG Carvedilol 25 mg 07/17/19 22:00 07/17/19 22:47 Coreg PO 25 mg BID YANG Administration Cinacalcet 30 mg 07/18/19 10:00 Sensipar PO QDAY YANG Dextrose 0 ml 07/03/19 04:34 D50w (25gm) Syringe IV Q30MIN PRN Hypoglycemia Protocol Docusate Sodium 100 mg 07/15/19 10:00 07/17/19 22:47 Colace FEEDTUBE 100 mg BID YANG Administration Famotidine 20 mg 07/07/19 10:00 07/17/19 09:46 Pepcid PO 20 mg DAILY YANG Administration Heparin Sodium (Porcine) 5,000 unit 07/03/19 10:00 07/17/19 22:47 Heparin SUB-Q 5,000 unit Q12HR YANG Administration Hydralazine HCl 50 mg 07/17/19 14:00 07/18/19 06:41 Apresoline PO 50 mg Q8HR YANG Administration Hydrophilic Ointment 1 applic 07/03/19 00:53 Vaseline Lip Therapy TP Q2HR PRN Dry Lips Fentanyl Citrate 2,000 mcg in 100 mls @ 2.608 mls/hr 07/03/19 01:00 07/04/19 18:10 Fentanyl Drip Premix IV Infused TITR YANG Titration Protocol 1 MCG/KG/HR Sodium Chloride 100 mls @ 999 mls/hr 07/05/19 13:41 Nacl 0.9% IV FEDE PRN Hypotension Insulin Glargine 18 units 07/10/19 13:43 07/17/19 09:45 Lantus SUB-Q 18 units DAILY YANG Administration Insulin Human Lispro 0 unit 07/03/19 06:00 07/18/19 01:38 Humalog SUB-Q 3 unit Q6HR YANG Administration Protocol Multi-Ingred Cream/Lotion/Oil/Oint 1 applic 07/03/19 00:53 Artificial Tears Ophth Oint OU Q4HR PRN Dry Eye(s) Risperidone 0.5 mg 07/17/19 22:00 07/18/19 06:42 Risperdal Oral Liqd PO 0.5 mg BID YANG Administration Simple Syrup 15 ml 07/05/19 16:27 Simple Syrup FEEDTUBE PRN PRN Hypoglycemia Simple Syrup 30 ml 07/05/19 16:27 Simple Syrup FEEDTUBE PRN PRN Hypoglycemia Sodium Bicarbonate 325 mg 07/05/19 16:27 Sodium Bicarbonate FEEDTUBE PRN PRN For Clogged Feeding Tube Sodium Chloride 10 ml 07/03/19 10:00 07/17/19 09:46 Sodium Chloride Flush Syringe 10 Ml IV 10 ml BID YANG Administration Sodium Chloride 10 ml 07/03/19 04:34 07/05/19 10:42 Sodium Chloride Flush Syringe 10 Ml IV 10 ml PRN PRN Administration LINE FLUSH Valproic Acid 500 mg 07/17/19 22:00 07/17/19 22:47 Depakene Liq FEEDTUBE 500 mg BID YANG Administration
[2019-07-18] MEDS: carvediloL 25 MG TAB PO SCH ×2 (10:08→23:00)
[2019-07-18] MEDS: HEPARIN 5,000 UNIT/1 ML VIAL SUB-Q SCH ×2 (10:08→23:02)
[2019-07-18] MEDS: BUMETANIDE 1 MG TAB PO SCH (10:08)
[2019-07-18] MEDS: INSULIN GLARGINE 100 UNITS/ML SUB-Q SCH (10:13)
--- NOTE | 2019-07-18 12:29 | Progress Note ---
Assessment and Plan Acute hypoxemic respiratory failure on MVS Acute toxic metabolic encephalopathy Severe Sepsis-resolved ESRD on HD Congestive heart Failure Accelerated Hypertension H/O Seizure Mental status precludes safe extubation at this time. However her mental status continues to improve on a daily basis Continue daily PSV as tolerated. Intermittent IV analgesia for now Continue agitation management Continue all supportive care PT/OT - VAP bundle addressed (aspiration precautions, HOB>40 degrees) -Lung protective strategies -wean FiO2 for O2 sats >90% - continue bronchodilators with pulmonary hygiene per RT - Continue enteral nutrition - HD/UF per nephrology for toxin and volume clearance - conitue to monitor clinically, trend temperature curve and WCC - continue VTE prophylaxis with heparin SQ - continue stress ulcer prophylaxis with Famotidine - accuchecks with glycemic control for SSI (While critically ill target blood glucose of 140-180 mg/dL; avoid hypoglycemia) - continue mobility protocols and off loading for pressure ulcer prevention - Monitor hemodynamics closely - Fluid restrictive strategies as tolerated by hemodynamics and by her renal function - continue to avoid nephrotoxins, dose all medications for CrCL and GFR - Monitor electrolyte profile closely and replete as indicated - Chronic home medications, continue same - All other care per attending / other consultants CONDITION: CRITICAL PROGNOSIS: GUARDED CODE STATUS: FULL CODE The high probability of a clinically significant, sudden or life-threatening deterioration of the [respiratory, cardiovascular, neurology, renal] system(s) required my full and direct attention, intervention and personal management. The aggregate critical care time was [31] minutes without overlap. Time includes spent on; [x] Data Review and interpretation [x] Patient assessment and monitoring of vital signs [x] Documentation [x] Medication orders and management Subjective Date of service: 07/18/19 Principal diagnosis: Acute hypoxemic resp failure; AMS; Severe Sepsis; ESRD; CHF; HTN; Seizure Interval history: Patient is seen today for: Acute hypoxemic respiratory failure on MVS;Acute toxic metabolic encephalopathy;Severe Sepsis; ESRD on HD Seen and examined at bedside; 24hour events reviewed; nursing and respiratory care staff consulted; no adverse overnight events reported to me; Vitals, labs, medications, chart reviewed. No fevers overnight; no diarrhea, has constipation, spontaneous eye opening and obeying simple commands, HD yesterday, tolerated it well; Tolerating tube feedings with acceptable glycemic control, no vomiting. Remains critically ill, orally intubated on MVS, tolerating SBT Objective Vital Signs - 12hr 07/18/19 07/18/19 07/18/19 01:00 02:00 03:00 Temperature Pulse Rate 79 80 82 Pulse Rate [ From Monitor] Respiratory 12 12 14 Rate Blood Pressure 132/52 134/54 132/51 O2 Sat by Pulse 100 100 100 Oximetry 07/18/19 07/18/19 07/18/19 04:00 05:01 06:00 Temperature 98.2 F Pulse Rate 75 78 73 Pulse Rate [ 80 From Monitor] Respiratory 14 13 13 Rate Blood Pressure 124/49 132/49 136/50 O2 Sat by Pulse 100 Oximetry 07/18/19 07/18/19 07/18/19 06:41 07:00 08:00 Temperature 99.5 F Pulse Rate 74 76 77 Pulse Rate [ From Monitor] Respiratory 13 16 Rate Blood Pressure 136/50 129/50 145/60 O2 Sat by Pulse 100 Oximetry 07/18/19 07/18/19 07/18/19 08:02 09:00 10:00 Temperature Pulse Rate 76 80 81 Pulse Rate [ From Monitor] Respiratory 22 23 Rate Blood Pressure 148/54 132/48 124/47 O2 Sat by Pulse 99 100 99 Oximetry 07/18/19 07/18/19 07/18/19 10:07 10:08 11:00 Temperature Pulse Rate 8 L 82 80 Pulse Rate [ From Monitor] Respiratory 23 Rate Blood Pressure 124/47 124/47 122/44 O2 Sat by Pulse 99 Oximetry Constitutional: no acute distress, other (middle aged thin female, normocephalic with mildly increased resp effort on MVS) Eyes: non-icteric ENT: oropharynx dry, other (ETT 23 cm JORY) Neck: supple, no lymphadenopathy, no JVD Effort: normal Ascultation: Bilateral: diminished breath sounds, rhonchi Percussion: Bilateral: not dull Cardiovascular: regular rate and rhythm Gastrointestinal: normoactive bowel sounds, soft, non-tender, non-distended Integumentary: normal, decubitus ulcer (sacral) Extremities: no cyanosis, no edema, pink and warm, pulses normal Neurologic: pupils equal and round, other (squeezes my had on command) Psychiatric: other (unable to assess re: AMS) CBC and BMP: 07/18/19 05:15 07/18/19 05:15 ABG, PT/INR, D-dimer: ABG ABG pH 7.425 pH Units (7.350-7.450) 07/13/19 05:50 ABG pCO2 42.9 mm Hg 07/13/19 05:50 ABG pO2 110.8 mm Hg (80.0-90.0) H 07/13/19 05:50 ABG O2 Saturation 98.0 % (95.0-99.0) 07/13/19 05:50 Abnormal lab findings: Abnormal Labs 07/03/19 07/03/19 07/03/19 01:00 01:00 01:00 WBC 17.9 H RBC Hgb Hct RDW 17.8 H Plt Count Lymph % (Auto) 11.7 L [place] % (Auto) [place] # 1.0 H Seg Neutrophils % 82.1 H Seg Neuts % (Manual) Seg Neutrophils # 14.7 H Seg Neutrophils # Man Monocytes # (Manual) ABG pH ABG pO2 ABG HCO3 ABG O2 Saturation ABG Base Excess ABG Hemoglobin Oxyhemoglobin Sodium Chloride 92.9 L Carbon Dioxide BUN 45 H Creatinine 5.3 H Glucose 229 H POC Glucose Hemoglobin A1c Calcium 10.5 H Phosphorus NT-Pro-B Natriuret Pep > 43338 H Albumin 2.5 L 07/03/19 07/03/19 07/03/19 01:00 01:35 04:30 WBC RBC Hgb Hct RDW Plt Count Lymph % (Auto) [place] % (Auto) [place] # Seg Neutrophils % Seg Neuts % (Manual) Seg Neutrophils # Seg Neutrophils # Man Monocytes # (Manual) ABG pH 7.555 H 7.489 H ABG pO2 65.4 L 149.9 H ABG HCO3 28.9 H 27.9 H ABG O2 Saturation ABG Base Excess 6.7 H 4.5 H ABG Hemoglobin Oxyhemoglobin 94.0 L Sodium Chloride Carbon Dioxide BUN Creatinine Glucose POC Glucose Hemoglobin A1c 7.0 H Calcium Phosphorus NT-Pro-B Natriuret Pep Albumin 07/03/19 07/03/19 07/03/19 12:10 17:35 23:59 WBC RBC Hgb Hct RDW Plt Count Lymph % (Auto) [place] % (Auto) [place] # Seg Neutrophils % Seg Neuts % (Manual) Seg Neutrophils # Seg Neutrophils # Man Monocytes # (Manual) ABG pH ABG pO2 ABG HCO3 ABG O2 Saturation ABG Base Excess ABG Hemoglobin Oxyhemoglobin Sodium Chloride Carbon Dioxide BUN Creatinine Glucose POC Glucose 246 H 163 H 112 H Hemoglobin A1c Calcium Phosphorus NT-Pro-B Natriuret Pep Albumin 07/04/19 07/04/19 07/04/19 04:24 04:56 04:56 WBC 17.3 H RBC Hgb Hct RDW 18.0 H Plt Count Lymph % (Auto) 8.7 L [place] % (Auto) [place] # 0.9 H Seg Neutrophils % 85.1 H Seg Neuts % (Manual) Seg Neutrophils # 14.8 H Seg Neutrophils # Man Monocytes # (Manual) ABG pH 7.496 H ABG pO2 74.0 L ABG HCO3 28.1 H ABG O2 Saturation ABG Base Excess 4.7 H ABG Hemoglobin Oxyhemoglobin 93.9 L Sodium Chloride 95.5 L Carbon Dioxide BUN 26 H Creatinine 3.4 H Glucose 145 H POC Glucose Hemoglobin A1c Calcium Phosphorus NT-Pro-B Natriuret Pep Albumin 07/04/19 07/04/19 07/05/19 07:04 17:56 01:45 WBC RBC Hgb Hct RDW Plt Count Lymph % (Auto) [place] % (Auto) [place] # Seg Neutrophils % Seg Neuts % (Manual) Seg Neutrophils # Seg Neutrophils # Man Monocytes # (Manual) ABG pH ABG pO2 ABG HCO3 ABG O2 Saturation ABG Base Excess ABG Hemoglobin Oxyhemoglobin Sodium Chloride Carbon Dioxide BUN Creatinine Glucose POC Glucose 162 H 273 H 148 H Hemoglobin A1c Calcium Phosphorus NT-Pro-B Natriuret Pep Albumin 07/05/19 07/05/19 07/05/19 03:07 03:07 05:57 WBC 18.7 H RBC Hgb Hct RDW 17.7 H Plt Count Lymph % (Auto) 7.6 L [place] % (Auto) [place] # 1.2 H Seg Neutrophils % 84.2 H Seg Neuts % (Manual) Seg Neutrophils # 15.7 H Seg Neutrophils # Man Monocytes # (Manual) ABG pH ABG pO2 ABG HCO3 ABG O2 Saturation ABG Base Excess ABG Hemoglobin Oxyhemoglobin Sodium Chloride 94.7 L 95.6 L Carbon Dioxide 19 L BUN 23 H 26 H Creatinine 2.7 H 2.9 H Glucose 161 H 179 H POC Glucose Hemoglobin A1c Calcium 10.3 H 10.5 H Phosphorus 5.20 H D NT-Pro-B Natriuret Pep Albumin 07/05/19 07/05/19 07/05/19 06:50 07:52 09:06 WBC 16.8 H RBC Hgb Hct RDW 18.1 H Plt Count Lymph % (Auto) 8.0 L [place] % (Auto) [place] # 1.1 H Seg Neutrophils % 84.4 H Seg Neuts % (Manual) Seg Neutrophils # 14.2 H Seg Neutrophils # Man Monocytes # (Manual) ABG pH ABG pO2 ABG HCO3 ABG O2 Saturation ABG Base Excess ABG Hemoglobin 11.7 L Oxyhemoglobin 94.6 L Sodium Chloride Carbon Dioxide BUN Creatinine Glucose POC Glucose 195 H Hemoglobin A1c Calcium Phosphorus NT-Pro-B Natriuret Pep Albumin 07/05/19 07/05/19 07/06/19 12:26 17:53 01:03 WBC RBC Hgb Hct RDW Plt Count Lymph % (Auto) [place] % (Auto) [place] # Seg Neutrophils % Seg Neuts % (Manual) Seg Neutrophils # Seg Neutrophils # Man Monocytes # (Manual) ABG pH ABG pO2 ABG HCO3 ABG O2 Saturation ABG Base Excess ABG Hemoglobin Oxyhemoglobin Sodium Chloride Carbon Dioxide BUN Creatinine Glucose POC Glucose 222 H 214 H 217 H Hemoglobin A1c Calcium Phosphorus NT-Pro-B Natriuret Pep Albumin 07/06/19 07/06/19 07/06/19 03:45 04:37 04:37 WBC 15.7 H RBC Hgb Hct RDW 17.9 H Plt Count Lymph % (Auto) 9.3 L [place] % (Auto) 8.2 H [place] # 1.3 H Seg Neutrophils % 81.5 H Seg Neuts % (Manual) Seg Neutrophils # 12.8 H Seg Neutrophils # Man Monocytes # (Manual) ABG pH ABG pO2 67.1 L ABG HCO3 ABG O2 Saturation 93.3 L ABG Base Excess ABG Hemoglobin Oxyhemoglobin 91.2 L Sodium Chloride 97.5 L Carbon Dioxide 20 L BUN 50 H Creatinine 4.5 H D Glucose 192 H POC Glucose Hemoglobin A1c Calcium Phosphorus 5.80 H NT-Pro-B Natriuret Pep Albumin 07/06/19 07/06/19 07/06/19 06:10 13:47 18:40 WBC RBC Hgb Hct RDW Plt Count Lymph % (Auto) [place] % (Auto) [place] # Seg Neutrophils % Seg Neuts % (Manual) Seg Neutrophils # Seg Neutrophils # Man Monocytes # (Manual) ABG pH ABG pO2 ABG HCO3 ABG O2 Saturation ABG Base Excess ABG Hemoglobin Oxyhemoglobin Sodium Chloride Carbon Dioxide BUN Creatinine Glucose POC Glucose 214 H 233 H 225 H Hemoglobin A1c Calcium Phosphorus NT-Pro-B Natriuret Pep Albumin 07/07/19 07/07/19 07/07/19 00:11 04:30 05:33 WBC RBC Hgb Hct RDW Plt Count Lymph % (Auto) [place] % (Auto) [place] # Seg Neutrophils % Seg Neuts % (Manual) Seg Neutrophils # Seg Neutrophils # Man Monocytes # (Manual) ABG pH ABG pO2 113.7 H ABG HCO3 28.6 H ABG O2 Saturation ABG Base Excess 4.0 H ABG Hemoglobin 11.3 L Oxyhemoglobin Sodium Chloride Carbon Dioxide BUN Creatinine Glucose POC Glucose 288 H 204 H Hemoglobin A1c Calcium Phosphorus NT-Pro-B Natriuret Pep Albumin 07/07/19 07/07/19 07/07/19 05:38 05:38 11:39 WBC 15.0 H RBC Hgb Hct RDW 18.3 H Plt Count Lymph % (Auto) 10.9 L [place] % (Auto) 8.9 H [place] # 1.3 H Seg Neutrophils % 79.6 H Seg Neuts % (Manual) Seg Neutrophils # 11.9 H Seg Neutrophils # Man Monocytes # (Manual) ABG pH ABG pO2 ABG HCO3 ABG O2 Saturation ABG Base Excess ABG Hemoglobin Oxyhemoglobin Sodium Chloride 94.8 L Carbon Dioxide BUN 32 H Creatinine 2.8 H Glucose 236 H POC Glucose 309 H Hemoglobin A1c Calcium 10.6 H Phosphorus NT-Pro-B Natriuret Pep Albumin 07/07/19 07/07/19 07/08/19 18:09 23:30 03:49 WBC RBC Hgb Hct RDW Plt Count Lymph % (Auto) [place] % (Auto) [place] # Seg Neutrophils % Seg Neuts % (Manual) Seg Neutrophils # Seg Neutrophils # Man Monocytes # (Manual) ABG pH ABG pO2 116.2 H ABG HCO3 27.7 H ABG O2 Saturation ABG Base Excess ABG Hemoglobin 11.2 L Oxyhemoglobin Sodium Chloride Carbon Dioxide BUN Creatinine Glucose POC Glucose 280 H 398 H Hemoglobin A1c Calcium Phosphorus NT-Pro-B Natriuret Pep Albumin 01/29/20 01/29/20 01/29/20 04:38 04:38 05:37 WBC 13.5 H RBC Hgb Hct RDW 18.3 H Plt Count Lymph % (Auto) [place] % (Auto) 9.5 H [place] # 1.3 H Seg Neutrophils % 75.6 H Seg Neuts % (Manual) Seg Neutrophils # 10.2 H Seg Neutrophils # Man Monocytes # (Manual) ABG pH ABG pO2 ABG HCO3 ABG O2 Saturation ABG Base Excess ABG Hemoglobin Oxyhemoglobin Sodium Chloride 94.9 L Carbon Dioxide BUN 64 H Creatinine 4.2 H Glucose 288 H POC Glucose 270 H Hemoglobin A1c Calcium 10.9 H Phosphorus NT-Pro-B Natriuret Pep Albumin 07/08/19 07/08/19 07/08/19 11:47 17:36 23:23 WBC RBC Hgb Hct RDW Plt Count Lymph % (Auto) [place] % (Auto) [place] # Seg Neutrophils % Seg Neuts % (Manual) Seg Neutrophils # Seg Neutrophils # Man Monocytes # (Manual) ABG pH ABG pO2 ABG HCO3 ABG O2 Saturation ABG Base Excess ABG Hemoglobin Oxyhemoglobin Sodium Chloride Carbon Dioxide BUN Creatinine Glucose POC Glucose 211 H 259 H 276 H Hemoglobin A1c Calcium Phosphorus NT-Pro-B Natriuret Pep Albumin 07/09/19 07/09/19 07/09/19 04:08 04:29 04:29 WBC 12.8 H RBC Hgb Hct RDW 17.7 H Plt Count Lymph % (Auto) 12.5 L [place] % (Auto) 8.4 H [place] # 1.1 H Seg Neutrophils % 77.0 H Seg Neuts % (Manual) Seg Neutrophils # 9.9 H Seg Neutrophils # Man Monocytes # (Manual) ABG pH 7.471 H ABG pO2 141.8 H ABG HCO3 32.3 H ABG O2 Saturation ABG Base Excess 7.8 H ABG Hemoglobin 11.3 L Oxyhemoglobin Sodium Chloride 94.1 L Carbon Dioxide BUN 36 H Creatinine 2.6 H Glucose 217 H POC Glucose Hemoglobin A1c Calcium 11.0 H Phosphorus NT-Pro-B Natriuret Pep Albumin 07/09/19 07/09/19 07/09/19 05:25 10:46 13:07 WBC RBC Hgb Hct RDW Plt Count Lymph % (Auto) [place] % (Auto) [place] # Seg Neutrophils % Seg Neuts % (Manual) Seg Neutrophils # Seg Neutrophils # Man Monocytes # (Manual) ABG pH ABG pO2 113.2 H ABG HCO3 30.9 H ABG O2 Saturation ABG Base Excess 6.0 H ABG Hemoglobin 10.5 L Oxyhemoglobin Sodium Chloride Carbon Dioxide BUN Creatinine Glucose POC Glucose 190 H 315 H Hemoglobin A1c Calcium Phosphorus NT-Pro-B Natriuret Pep Albumin 07/09/19 07/09/19 07/10/19 17:59 23:18 04:00 WBC RBC Hgb Hct RDW Plt Count Lymph % (Auto) [place] % (Auto) [place] # Seg Neutrophils % Seg Neuts % (Manual) Seg Neutrophils # Seg Neutrophils # Man Monocytes # (Manual) ABG pH ABG pO2 77.3 L ABG HCO3 30.4 H ABG O2 Saturation ABG Base Excess 5.1 H ABG Hemoglobin Oxyhemoglobin Sodium Chloride Carbon Dioxide BUN Creatinine Glucose POC Glucose 204 H 199 H Hemoglobin A1c Calcium Phosphorus NT-Pro-B Natriuret Pep Albumin 07/10/19 07/10/19 07/10/19 04:55 04:55 05:39 WBC 23.9 H RBC Hgb Hct RDW 18.1 H Plt Count Lymph % (Auto) [place] % (Auto) [place] # Seg Neutrophils % Seg Neuts % (Manual) 81.0 H Seg Neutrophils # Seg Neutrophils # Man 19.4 H Monocytes # (Manual) 1.0 H ABG pH ABG pO2 ABG HCO3 ABG O2 Saturation ABG Base Excess ABG Hemoglobin Oxyhemoglobin Sodium 133 L Chloride 88.0 L Carbon Dioxide BUN 64 H Creatinine 3.7 H Glucose 250 H POC Glucose 288 H Hemoglobin A1c Calcium 11.1 H Phosphorus NT-Pro-B Natriuret Pep Albumin 07/10/19 07/10/19 07/10/19 12:02 18:32 23:37 WBC RBC Hgb Hct RDW Plt Count Lymph % (Auto) [place] % (Auto) [place] # Seg Neutrophils % Seg Neuts % (Manual) Seg Neutrophils # Seg Neutrophils # Man Monocytes # (Manual) ABG pH ABG pO2 ABG HCO3 ABG O2 Saturation ABG Base Excess ABG Hemoglobin Oxyhemoglobin Sodium Chloride Carbon Dioxide BUN Creatinine Glucose POC Glucose 204 H 288 H 189 H Hemoglobin A1c Calcium Phosphorus NT-Pro-B Natriuret Pep Albumin 07/11/19 07/11/19 07/11/19 05:31 06:10 06:10 WBC 16.6 H RBC 3.60 L Hgb Hct RDW 16.8 H Plt Count Lymph % (Auto) [place] % (Auto) [place] # Seg Neutrophils % Seg Neuts % (Manual) Seg Neutrophils # Seg Neutrophils # Man Monocytes # (Manual) ABG pH ABG pO2 ABG HCO3 ABG O2 Saturation ABG Base Excess ABG Hemoglobin Oxyhemoglobin Sodium 130 L Chloride 87.4 L Carbon Dioxide BUN 47 H Creatinine 2.4 H Glucose 138 H POC Glucose 135 H Hemoglobin A1c Calcium 10.8 H Phosphorus NT-Pro-B Natriuret Pep Albumin 07/11/19 07/11/19 07/11/19 12:28 18:05 23:49 WBC RBC Hgb Hct RDW Plt Count Lymph % (Auto) [place] % (Auto) [place] # Seg Neutrophils % Seg Neuts % (Manual) Seg Neutrophils # Seg Neutrophils # Man Monocytes # (Manual) ABG pH ABG pO2 ABG HCO3 ABG O2 Saturation ABG Base Excess ABG Hemoglobin Oxyhemoglobin Sodium Chloride Carbon Dioxide BUN Creatinine Glucose POC Glucose 243 H 177 H 163 H Hemoglobin A1c Calcium Phosphorus NT-Pro-B Natriuret Pep Albumin 07/12/19 07/12/19 07/12/19 05:27 05:43 05:43 WBC 15.0 H RBC Hgb Hct RDW 17.5 H Plt Count Lymph % (Auto) [place] % (Auto) [place] # Seg Neutrophils % Seg Neuts % (Manual) Seg Neutrophils # Seg Neutrophils # Man Monocytes # (Manual) ABG pH ABG pO2 ABG HCO3 ABG O2 Saturation ABG Base Excess ABG Hemoglobin Oxyhemoglobin Sodium 128 L Chloride 85.7 L Carbon Dioxide BUN 76 H Creatinine 3.8 H D Glucose 157 H POC Glucose 156 H Hemoglobin A1c Calcium 10.8 H Phosphorus NT-Pro-B Natriuret Pep Albumin 07/12/19 07/12/19 07/13/19 12:03 18:30 00:03 WBC RBC Hgb Hct RDW Plt Count Lymph % (Auto) [place] % (Auto) [place] # Seg Neutrophils % Seg Neuts % (Manual) Seg Neutrophils # Seg Neutrophils # Man Monocytes # (Manual) ABG pH ABG pO2 ABG HCO3 ABG O2 Saturation ABG Base Excess ABG Hemoglobin Oxyhemoglobin Sodium Chloride Carbon Dioxide BUN Creatinine Glucose POC Glucose 162 H 183 H 187 H Hemoglobin A1c Calcium Phosphorus NT-Pro-B Natriuret Pep Albumin 07/13/19 07/13/1907/13/20 05:50 05:56 07:50 WBC 13.5 H RBC 3.37 L Hgb 9.6 L Hct 28.8 L RDW 17.4 H Plt Count Lymph % (Auto) [place] % (Auto) [place] # Seg Neutrophils % Seg Neuts % (Manual) Seg Neutrophils # Seg Neutrophils # Man Monocytes # (Manual) ABG pH ABG pO2 110.8 H ABG HCO3 27.5 H ABG O2 Saturation ABG Base Excess ABG Hemoglobin 10.0 L Oxyhemoglobin Sodium Chloride Carbon Dioxide BUN Creatinine Glucose POC Glucose 216 H Hemoglobin A1c Calcium Phosphorus NT-Pro-B Natriuret Pep Albumin 07/13/19 07/13/19 07/13/19 07:50 13:18 18:09 WBC RBC Hgb Hct RDW Plt Count Lymph % (Auto) [place] % (Auto) [place] # Seg Neutrophils % Seg Neuts % (Manual) Seg Neutrophils # Seg Neutrophils # Man Monocytes # (Manual) ABG pH ABG pO2 ABG HCO3 ABG O2 Saturation ABG Base Excess ABG Hemoglobin Oxyhemoglobin Sodium 126 L Chloride 80.8 L Carbon Dioxide 21 L BUN 105 H Creatinine 4.7 H Glucose 215 H POC Glucose 187 H 202 H Hemoglobin A1c Calcium 10.3 H Phosphorus NT-Pro-B Natriuret Pep Albumin 07/13/19 07/13/19 07/14/19 19:44 23:23 04:17 WBC RBC Hgb Hct RDW 17.5 H Plt Count Lymph % (Auto) [place] % (Auto) [place] # Seg Neutrophils % Seg Neuts % (Manual) Seg Neutrophils # Seg Neutrophils # Man Monocytes # (Manual) ABG pH ABG pO2 ABG HCO3 ABG O2 Saturation ABG Base Excess ABG Hemoglobin Oxyhemoglobin Sodium 133 L D Chloride Carbon Dioxide BUN Creatinine Glucose POC Glucose 167 H Hemoglobin A1c Calcium Phosphorus NT-Pro-B Natriuret Pep Albumin 07/14/19 07/14/19 07/14/19 04:17 05:03 12:12 WBC RBC Hgb Hct RDW Plt Count Lymph % (Auto) [place] % (Auto) [place] # Seg Neutrophils % Seg Neuts % (Manual) Seg Neutrophils # Seg Neutrophils # Man Monocytes # (Manual) ABG pH ABG pO2 ABG HCO3 ABG O2 Saturation ABG Base Excess ABG Hemoglobin Oxyhemoglobin Sodium 131 L Chloride 88.8 L Carbon Dioxide BUN 47 H Creatinine 2.6 H Glucose 131 H POC Glucose 142 H 246 H Hemoglobin A1c Calcium Phosphorus NT-Pro-B Natriuret Pep Albumin 07/14/19 07/15/19 07/15/19 18:30 00:35 04:51 WBC RBC 3.51 L Hgb 9.9 L Hct 30.0 L RDW 17.6 H Plt Count 510 H Lymph % (Auto) [place] % (Auto) [place] # Seg Neutrophils % 72.4 H Seg Neuts % (Manual) Seg Neutrophils # Seg Neutrophils # Man Monocytes # (Manual) ABG pH ABG pO2 ABG HCO3 ABG O2 Saturation ABG Base Excess ABG Hemoglobin Oxyhemoglobin Sodium Chloride Carbon Dioxide BUN Creatinine Glucose POC Glucose 114 H 164 H Hemoglobin A1c Calcium Phosphorus NT-Pro-B Natriuret Pep Albumin 07/15/19 07/15/19 07/15/19 04:51 06:21 11:55 WBC RBC Hgb Hct RDW Plt Count Lymph % (Auto) [place] % (Auto) [place] # Seg Neutrophils % Seg Neuts % (Manual) Seg Neutrophils # Seg Neutrophils # Man Monocytes # (Manual) ABG pH ABG pO2 ABG HCO3 ABG O2 Saturation ABG Base Excess ABG Hemoglobin Oxyhemoglobin Sodium 134 L Chloride 88.7 L Carbon Dioxide BUN 78 H Creatinine 4.0 H D Glucose 141 H POC Glucose 135 H 172 H Hemoglobin A1c Calcium 10.4 H Phosphorus NT-Pro-B Natriuret Pep Albumin 07/15/19 07/15/19 07/15/19 17:46 18:10 23:20 WBC RBC Hgb Hct RDW Plt Count Lymph % (Auto) [place] % (Auto) [place] # Seg Neutrophils % Seg Neuts % (Manual) Seg Neutrophils # Seg Neutrophils # Man Monocytes # (Manual) ABG pH ABG pO2 ABG HCO3 ABG O2 Saturation ABG Base Excess ABG Hemoglobin Oxyhemoglobin Sodium Chloride Carbon Dioxide BUN Creatinine Glucose POC Glucose 203 H 237 H 184 H Hemoglobin A1c Calcium Phosphorus NT-Pro-B Natriuret Pep Albumin 07/16/19 07/16/19 07/16/19 04:44 04:44 05:44 WBC RBC Hgb Hct RDW 17.5 H Plt Count 605 H Lymph % (Auto) [place] % (Auto) [place] # Seg Neutrophils % 72.6 H Seg Neuts % (Manual) Seg Neutrophils # Seg Neutrophils # Man Monocytes # (Manual) ABG pH ABG pO2 ABG HCO3 ABG O2 Saturation ABG Base Excess ABG Hemoglobin Oxyhemoglobin Sodium Chloride 93.4 L Carbon Dioxide BUN 46 H Creatinine 2.6 H Glucose 125 H POC Glucose 147 H Hemoglobin A1c Calcium 10.5 H Phosphorus NT-Pro-B Natriuret Pep Albumin 07/16/19 07/16/19 07/16/19 12:17 17:55 18:06 WBC RBC Hgb Hct RDW Plt Count Lymph % (Auto) [place] % (Auto) [place] # Seg Neutrophils % Seg Neuts % (Manual) Seg Neutrophils # Seg Neutrophils # Man Monocytes # (Manual) ABG pH ABG pO2 ABG HCO3 ABG O2 Saturation ABG Base Excess ABG Hemoglobin Oxyhemoglobin Sodium Chloride Carbon Dioxide BUN Creatinine Glucose POC Glucose 222 H 129 H 121 H Hemoglobin A1c Calcium Phosphorus NT-Pro-B Natriuret Pep Albumin 07/17/19 07/17/19 07/17/19 00:31 03:58 03:58 WBC RBC Hgb Hct RDW 17.7 H Plt Count 647 H Lymph % (Auto) [place] % (Auto) 7.7 H [place] # Seg Neutrophils % Seg Neuts % (Manual) Seg Neutrophils # Seg Neutrophils # Man Monocytes # (Manual) ABG pH ABG pO2 ABG HCO3 ABG O2 Saturation ABG Base Excess ABG Hemoglobin Oxyhemoglobin Sodium 133 L Chloride 89.4 L Carbon Dioxide BUN 81 H Creatinine 3.5 H Glucose 139 H POC Glucose 195 H Hemoglobin A1c Calcium 10.8 H Phosphorus NT-Pro-B Natriuret Pep Albumin 07/17/19 07/17/19 07/17/19 05:50 13:06 17:50 WBC RBC Hgb Hct RDW Plt Count Lymph % (Auto) [place] % (Auto) [place] # Seg Neutrophils % Seg Neuts % (Manual) Seg Neutrophils # Seg Neutrophils # Man Monocytes # (Manual) ABG pH ABG pO2 ABG HCO3 ABG O2 Saturation ABG Base Excess ABG Hemoglobin Oxyhemoglobin Sodium Chloride Carbon Dioxide BUN Creatinine Glucose POC Glucose 137 H 176 H 154 H Hemoglobin A1c Calcium Phosphorus NT-Pro-B Natriuret Pep Albumin 07/17/19 07/18/19 07/18/19 23:10 05:15 05:15 WBC RBC Hgb Hct RDW 17.4 H Plt Count 645 H Lymph % (Auto) [place] % (Auto) [place] # Seg Neutrophils % 73.0 H Seg Neuts % (Manual) Seg Neutrophils # Seg Neutrophils # Man Monocytes # (Manual) ABG pH ABG pO2 ABG HCO3 ABG O2 Saturation ABG Base Excess ABG Hemoglobin Oxyhemoglobin Sodium Chloride 95.8 L Carbon Dioxide BUN 44 H Creatinine 2.3 H Glucose 164 H POC Glucose 186 H Hemoglobin A1c Calcium 10.6 H Phosphorus NT-Pro-B Natriuret Pep Albumin 07/18/19 07/18/19 05:55 10:24 WBC RBC Hgb Hct RDW Plt Count Lymph % (Auto) [place] % (Auto) [place] # Seg Neutrophils % Seg Neuts % (Manual) Seg Neutrophils # Seg Neutrophils # Man Monocytes # (Manual) ABG pH ABG pO2 ABG HCO3 ABG O2 Saturation ABG Base Excess ABG Hemoglobin Oxyhemoglobin Sodium Chloride Carbon Dioxide BUN Creatinine Glucose POC Glucose 146 H 161 H Hemoglobin A1c Calcium Phosphorus NT-Pro-B Natriuret Pep Albumin Allied health notes reviewed: RT
--- NOTE | 2019-07-18 12:49 | Progress Note ---
Assessment and Plan Assessment and plan: Sepsis Source is unclear. Etiology may be secondary to pneumonia versus minimal cellulitis around sacral decubitus. If WBC worsens, consider CT chest, abdomen and pelvis with IV contrast. -Continue empiric antibiotics per infectious disease Acute hypoxic respiratory failure -Continue mechanical ventilation per pulmonary. -Etiology secondary to CHF versus pneumonia. -Await surgery to perform trach and PEG Toxic metabolic encephalopathy -Neuro checks -Continue to treat underlying causes. ESRD on HD -M/W/F -Avoid nephrotoxic agents -Renal dose all meds -Nephrology following Congestive heart Failure -BNP >33687 on admission -Monitor input and output. -Cardiology following and reported no evidence of volume overload Hypertension -Continue to monitor BP -Patient is normotensive off blood pressure medications. Insulin-dependent diabetes -POC BG monitoring -SSI coverage prn Hx Seizure -Continue anticonvulsant meds -Seizure precautions. Sacral decubitus ulcer CT non contrasted without evidence of fluid collection or osteomyelitis. DVT PPX -On Heparin Disposition. Discussed with case management possibility of LTAC The high probability of a clinically significant, sudden or life threatening deterioration of the [respiratory] system(s) required my full and direct attention, intervention and personal management. The aggregate critical care time was [31] minutes. This time is in addition to time spent performing repo rted procedures but includes the following: [x] Data Review and interpretation [x] Patient assessment and monitoring of vital signs [x] Documentation [x] Medication orders and management History Interval history: Patient remains orally intubated Hospitalist Physical - Constitutional Vitals: Temp Pulse Resp BP Pulse Ox 99.5 F 80 27 H 125/43 99 07/18/19 12:00 07/18/19 12:24 07/18/19 12:24 07/18/19 12:24 07/18/19 12:24 General appearance: Present: other (intubated on the vent) - EENT Eyes: Present: PERRL, EOM intact ENT: hearing intact, clear oral mucosa, dentition normal - Neck Neck: Present: supple, normal ROM - Respiratory Respiratory effort: normal Respiratory: bilateral: CTA - Cardiovascular Rhythm: regular Heart Sounds: Present: S1 & S2. Absent: gallop, rub - Extremities Extremities: no ischemia, No edema, Full ROM - Abdominal General gastrointestinal: soft, non-tender, non-distended, normal bowel sounds - Integumentary Integumentary: Present: clear, warm, dry - Neurologic Neurologic: CNII-XII intact, moves all extremities MATT score - Matt Score Age > 65: (0) No Aspirin use within the Past 7 Days: (0) No 3 or more CAD Risk Factors: (1) Yes 2 or more Angina events in past 24 hrs: (0) No Known CAD with more than 50% Stenosis: (0) No Elevated Cardiac Markers: (1) Yes ST Deviation Greater than 0.5mm: (0) No MATT Score: 2 Results - Labs CBC & Chem 7: 07/18/19 05:15 07/18/19 05:15 Labs: Laboratory Last Values WBC 7.5 K/mm3 (4.5-11.0) 07/18/19 05:15 RBC 3.86 M/mm3 (3.65-5.03) 07/18/19 05:15 Hgb 10.8 gm/dl (10.1-14.3) 07/18/19 05:15 Hct 33.4 % (30.3-42.9) 07/18/19 05:15 MCV 87 fl (79-97) 07/18/19 05:15 MCH 28 pg (28-32) 07/18/19 05:15 MCHC 32 % (30-34) 07/18/19 05:15 RDW 17.4 % (13.2-15.2) H 07/18/19 05:15 Plt Count 645 K/mm3 (140-440) H 07/18/19 05:15 Lymph % (Auto) 19.7 % (13.4-35.0) 07/18/19 05:15 [place] % (Auto) 5.3 % (0.0-7.3) 07/18/19 05:15 Eos % (Auto) 1.4 % (0.0-4.3) 07/18/19 05:15 Baso % (Auto) 0.6 % (0.0-1.8) 07/18/19 05:15 Lymph # 1.5 K/mm3 (1.2-5.4) 07/18/19 05:15 [place] # 0.4 K/mm3 (0.0-0.8) 07/18/19 05:15 Eos # 0.1 K/mm3 (0.0-0.4) 07/18/19 05:15 Baso # 0.0 K/mm3 (0.0-0.1) 07/18/19 05:15 Add Manual Diff Complete 07/10/19 04:55 Total Counted 100 07/10/19 04:55 Seg Neutrophils % 73.0 % (40.0-70.0) H 07/18/19 05:15 Seg Neuts % (Manual) 81.0 % (40.0-70.0) H 07/10/19 04:55 Band Neutrophils % 0 % 07/10/19 04:55 Lymphocytes % (Manual) 14.0 % (13.4-35.0) 07/10/19 04:55 Reactive Lymphs % (Man) 0 % 07/10/19 04:55 Monocytes % (Manual) 4.0 % (0.0-7.3) 07/10/19 04:55 Eosinophils % (Manual) 0 % (0.0-4.3) 07/10/19 04:55 Basophils % (Manual) 0 % (0.0-1.8) 07/10/19 04:55 Metamyelocytes % 1.0 % 07/10/19 04:55 Myelocytes % 0 % 07/10/19 04:55 Promyelocytes % 0 % 07/10/19 04:55 Blast Cells % 0 % 07/10/19 04:55 Nucleated RBC % Not Reportable 07/10/19 04:55 Seg Neutrophils # 5.5 K/mm3 (1.8-7.7) 07/18/19 05:15 Seg Neutrophils # Man 19.4 K/mm3 (1.8-7.7) H 07/10/19 04:55 Band Neutrophils # 0.0 K/mm3 07/10/19 04:55 Lymphocytes # (Manual) 3.3 K/mm3 (1.2-5.4) 07/10/19 04:55 Abs React Lymphs (Man) 0.0 K/mm3 07/10/19 04:55 Monocytes # (Manual) 1.0 K/mm3 (0.0-0.8) H 07/10/19 04:55 Eosinophils # (Manual) 0.0 K/mm3 (0.0-0.4) 07/10/19 04:55 Basophils # (Manual) 0.0 K/mm3 (0.0-0.1) 07/10/19 04:55 Metamyelocytes # 0.2 K/mm3 07/10/19 04:55 Myelocytes # 0.0 K/mm3 07/10/19 04:55 Promyelocytes # 0.0 K/mm3 07/10/19 04:55 Blast Cells # 0.0 K/mm3 07/10/19 04:55 WBC Morphology Not Reportable 07/10/19 04:55 Hypersegmented Neuts Not Reportable 07/10/19 04:55 Hyposegmented Neuts Not Reportable 07/10/19 04:55 Hypogranular Neuts Not Reportable 07/10/19 04:55 Smudge Cells Not Reportable 07/10/19 04:55 Toxic Granulation Not Reportable 07/10/19 04:55 Toxic Vacuolation Not Reportable 07/10/19 04:55 Dohle Bodies Not Reportable 07/10/19 04:55 Pelger-Huet Anomaly Not Reportable 07/10/19 04:55 Andrei Rods Not Reportable 07/10/19 04:55 Platelet Estimate Consistent w auto 07/10/19 04:55 Clumped Platelets Not Reportable 07/10/19 04:55 Plt Clumps, EDTA Not Reportable 07/10/19 04:55 Large Platelets Not Reportable 07/10/19 04:55 Giant Platelets Not Reportable 07/10/19 04:55 Platelet Satelliting Not Reportable 07/10/19 04:55 Plt Morphology Comment Not Reportable 07/10/19 04:55 RBC Morphology Not Reportable 07/10/19 04:55 Dimorphic RBCs Not Reportable 07/10/19 04:55 Polychromasia Not Reportable 07/10/19 04:55 Hypochromasia Not Reportable 07/10/19 04:55 Poikilocytosis Not Reportable 07/10/19 04:55 Anisocytosis Not Reportable 07/10/19 04:55 Microcytosis Not Reportable 07/10/19 04:55 Macrocytosis Not Reportable 07/10/19 04:55 Spherocytes Not Reportable 07/10/19 04:55 Pappenheimer Bodies Not Reportable 07/10/19 04:55 Sickle Cells Not Reportable 07/10/19 04:55 Target Cells Not Reportable 07/10/19 04:55 Tear Drop Cells Not Reportable 07/10/19 04:55 Ovalocytes Not Reportable 07/10/19 04:55 Helmet Cells Not Reportable 07/10/19 04:55 [place] Bodies Not Reportable 07/10/19 04:55 [place] Rings Not Reportable 07/10/19 04:55 [place] Cells Not Reportable 07/10/19 04:55 Bite Cells Not Reportable 07/10/19 04:55 Crenated Cell Not Reportable 07/10/19 04:55 Elliptocytes Not Reportable 07/10/19 04:55 Acanthocytes (Spur) Not Reportable 07/10/19 04:55 Rouleaux Not Reportable 07/10/19 04:55 Hemoglobin C Crystals Not Reportable 07/10/19 04:55 Schistocytes Rare 07/10/19 04:55 Malaria parasites Not Reportable 07/10/19 04:55 Tristen Bodies Not Reportable 07/10/19 04:55 Hem Pathologist Commnt No 07/10/19 04:55 ABG pH 7.425 pH Units (7.350-7.450) 07/13/19 05:50 ABG pCO2 42.9 mm Hg 07/13/19 05:50 ABG pO2 110.8 mm Hg (80.0-90.0) H 07/13/19 05:50 ABG HCO3 27.5 mmol/L (20.0-26.0) H 07/13/19 05:50 ABG O2 Saturation 98.0 % (95.0-99.0) 07/13/19 05:50 ABG O2 Content 13.7 (0.0-44) 07/13/19 05:50 ABG Base Excess 2.8 mmol/L (-2.0-3.0) 07/13/19 05:50 ABG Hemoglobin 10.0 gm/dl (12.0-16.0) L 07/13/19 05:50 ABG Carboxyhemoglobin 1.4 % (0.0-5.0) 07/13/19 05:50 ABG Methemoglobin 0.5 % (0.0-1.5) 07/13/19 05:50 Oxyhemoglobin 96.2 % (95.0-99.0) 07/13/19 05:50 FiO2 40 % 02/03/20 05:50 Sodium 140 mmol/L (137-145) D 07/18/19 05:15 Potassium 4.4 mmol/L (3.6-5.0) 07/18/19 05:15 Chloride 95.8 mmol/L (98-107) L 07/18/19 05:15 Carbon Dioxide 25 mmol/L (22-30) 07/18/19 05:15 Anion Gap 24 mmol/L 07/18/19 05:15 BUN 44 mg/dL (7-17) H 07/18/19 05:15 Creatinine 2.3 mg/dL (0.7-1.2) H 07/18/19 05:15 Estimated GFR 22 ml/min 07/18/19 05:15 BUN/Creatinine Ratio 19 % 07/18/19 05:15 Glucose 164 mg/dL (65-100) H 07/18/19 05:15 POC Glucose 161 (70-105) H 07/18/19 10:24 Hemoglobin A1c 7.0 % (4-6) H 07/03/19 01:00 Lactic Acid 1.20 mmol/L (0.7-2.0) 07/03/19 04:13 Calcium 10.6 mg/dL (8.4-10.2) H 07/18/19 05:15 Phosphorus 2.60 mg/dL (2.5-4.5) D 07/09/19 04:29 Total Bilirubin 0.30 mg/dL (0.1-1.2) 07/03/19 01:00 AST 22 units/L (5-40) 07/03/19 01:00 ALT 9 units/L (7-56) 07/03/19 01:00 Alkaline Phosphatase 101 units/L (35-129) 07/03/19 01:00 Ammonia 35.0 umol/L (25-60) 07/03/19 01:58 NT-Pro-B Natriuret Pep > 80601 pg/mL (0-900) H 07/03/19 01:00 Total Protein 7.0 g/dL (6.3-8.2) 07/03/19 01:00 Albumin 2.5 g/dL (3.9-5) L 07/03/19 01:00 Albumin/Globulin Ratio 0.6 % 07/03/19 01:00 TSH 2.600 mlU/mL (0.270-4.200) 07/03/19 01:00 Urine Color Yellow (Yellow) 07/03/19 Unknown Urine Turbidity Clear (Clear) 07/03/19 Unknown Urine pH 6.0 (5.0-7.0) 07/03/19 Unknown Ur Specific [place] 1.012 (1.003-1.030) 07/03/19 Unknown Urine Protein >500 mg/dL (Negative) 07/03/19 Unknown Urine Glucose (UA) >=500 mg/dL (Negative) 07/03/19 Unknown Urine Ketones Neg mg/dL (Negative) 07/03/19 Unknown Urine Blood Neg (Negative) 07/03/19 Unknown Urine Nitrite Neg (Negative) 07/03/19 Unknown Ur Reducing Substances Not Reportable 07/03/19 Unknown Urine Bilirubin Neg (Negative) 07/03/19 Unknown Urine Ictotest Not Reportable 07/03/19 Unknown Urine Urobilinogen < 2.0 mg/dL (<2.0) 07/03/19 Unknown Ur Leukocyte Esterase Neg (Negative) 07/03/19 Unknown Urine WBC (Auto) 1.0 /HPF (0.0-6.0) 07/03/19 Unknown Urine RBC (Auto) 2.0 /HPF (0.0-6.0) 07/03/19 Unknown U Epithel Cells (Auto) < 1.0 /HPF (0-13.0) 07/03/19 Unknown Urine Mucus Few /HPF 07/03/19 Unknown Random Vancomycin 18.7 ug/mL (0-40.0) 07/08/19 04:38 Influenza A (Rapid) Negative (Negative) 07/05/19 14:30 Influenza B (Rapid) Negative (Negative) 07/05/19 14:30 Active Medications - Current Medications Current Medications: Generic Name Dose Route Start Last Admin Trade Name Freq PRN Reason Stop Dose Admin Acetaminophen 650 mg 07/08/19 10:00 Tylenol MI Q4H PRN Pain, Mild (1-3) Albumin Human 25 gm 07/06/19 13:42 07/08/19 11:59 Alburx 25% (Albumin) IV 25 gm FEDE PRN Administration Hypotension Amlodipine Besylate 10 mg 07/17/19 13:00 07/18/19 10:07 Amlodipine PO 10 mg QDAY YANG Administration Lipase/Protease/Amylase 1 each 07/05/19 16:[address] 10,500 Unit FEEDTUBE PRN PRN For Clogged Feeding Tube Bumetanide 1 mg 07/18/19 10:00 07/18/19 10:08 Bumex PO 1 mg QDAY YANG Administration Carvedilol 25 mg 07/17/19 22:00 07/18/19 10:08 Coreg PO 25 mg BID YANG Administration Cinacalcet 30 mg 07/18/19 10:00 07/18/19 10:07 Sensipar PO 30 mg QDAY YANG Administration Dextrose 0 ml 07/03/19 04:34 D50w (25gm) Syringe IV Q30MIN PRN Hypoglycemia Protocol Docusate Sodium 100 mg 07/15/19 10:00 07/18/19 10:07 Colace FEEDTUBE 100 mg BID YANG Administration Famotidine 20 mg 07/07/19 10:00 07/18/19 10:07 Pepcid PO 20 mg DAILY YANG Administration Heparin Sodium (Porcine) 5,000 unit 07/03/19 10:00 07/18/19 10:08 Heparin SUB-Q 5,000 unit Q12HR YANG Administration Hydralazine HCl 50 mg 07/17/19 14:00 07/18/19 06:41 Apresoline PO 50 mg Q8HR YANG Administration Hydrophilic Ointment 1 applic 07/03/19 00:53 Vaseline Lip Therapy TP Q2HR PRN Dry Lips Fentanyl Citrate 2,000 mcg in 100 mls @ 2.608 mls/hr 07/03/19 01:00 07/04/19 18:10 Fentanyl Drip Premix IV Infused TITR [facility] Titration Protocol 1 MCG/KG/HR Sodium Chloride 100 mls @ 999 mls/hr 07/05/19 13:41 Nacl 0.9% IV FEDE PRN Hypotension Insulin Glargine 18 units 07/10/19 13:43 07/18/19 10:13 Lantus SUB-Q 18 units DAILY YANG Administration Insulin Human Lispro 0 unit 07/03/19 06:00 07/18/19 12:48 Humalog SUB-Q Not Given Q6HR YANG Protocol Multi-Ingred Cream/Lotion/Oil/Oint 1 applic 07/03/19 00:53 Artificial Tears Ophth Oint OU Q4HR PRN Dry Eye(s) Risperidone 0.5 mg 07/17/19 22:00 07/18/19 10:08 Risperdal Oral Liqd PO 0.5 mg BID YANG Administration Simple Syrup 15 ml 07/05/19 16:27 Simple Syrup FEEDTUBE PRN PRN Hypoglycemia Simple Syrup 30 ml 07/05/19 16:27 Simple Syrup FEEDTUBE PRN PRN Hypoglycemia Sodium Bicarbonate 325 mg 07/05/19 16:27 Sodium Bicarbonate FEEDTUBE PRN PRN For Clogged Feeding Tube Sodium Chloride 10 ml 07/03/19 10:00 07/17/19 09:46 Sodium Chloride Flush Syringe 10 Ml IV 10 ml BID YANG Administration Sodium Chloride 10 ml 07/03/19 04:34 07/05/19 10:42 Sodium Chloride Flush Syringe 10 Ml IV 10 ml PRN PRN Administration LINE FLUSH Valproic Acid 500 mg 07/17/19 22:00 07/18/19 10:06 Depakene Liq FEEDTUBE 500 mg BID YANG Administration Nutrition/Malnutrition Assess - Dietary Evaluation Nutrition/Malnutrition Findings: Nutrition Notes Start: 07/06/19 08: 50 Freq: Status: Active Protocol: Document 07/14/19 11:50 MK (Rec: 07/14/19 11:59 MK [id number]) Co-Sign 07/14/19 11:50 LP Nutrition Notes Initial or Follow up Reassessment Current Diagnosis CKD (stage V CKD),Decubitus( Pressure Ulcer),Diabetes,Heart Failure,Respiratory Failure Other Pertinent Diagnosis on HD, Sacral PU, seizures, bipolar disorder, metabolic encephalopathy Current Diet Nepro 1.8 at 35 ml/hr Labs/Tests Na 131 BUN 47 Cr 2.6 Pertinent Medications Lantus Heparin Height 5 ft 2 in Weight 50.3 kg [place] Body Weight (kg) 50.00 BMI 20.2 Weight change and time frame wt gain noted with renal Weight Status Appropriate Subjective/Other Information FU for tolerance and wt. Nepro 1.8 running at 35ml/hr. Percent of energy/protein needs met: 100%/100% Burn Absent Trauma Absent GI Symptoms None Current % PO Negligible Minimum of two criteria No physical signs of malnutrition #2 Nutrition Diagnosis Increased nutrient needs ( specify in comment below) Comments: Protein Diagnosis Progress(for reassessment Continues documentation) #1 Nutrition Diagnosis Inadequate oral intake Diagnosis Progress(for reassessment Continues documentation) Is patient on ventilator? Yes Is Patient Ambulatory and/or Out of Bed No REE-([facility]-confined to bed) [phone] Calculation Used for Recommendations [facility] Additional Notes Protein: 58 -96g (1.2-2g/kg) Fluid: 1-1.5 L/ day Nutrition Intervention Change Diet Order: TF Nutrition Support: Nepro 1.8 at 35ml/hr Change flush to 100 ml q4h. Kcal 1,512 Protein (gm) 68 Fluid (mL) 611 Goal #1 TF tolerance Goal #2 Wound healing Anticipated Discharge Needs: unable to determine at this time Follow-Up By: 07/21/19 Additional Comments F/U for TF tolerance.
[2019-07-19 06:20] LABS: Hematocrit 30.1 % (30.3-42.9); Hemoglobin 10.1 gm/dl (10.1-14.3); Mean Corpuscular HGB Conc 34 % (30-34); Mean Corpuscular Volume 87 fl (79-97); Platelet Count 599 K/mm3 (140-440); Red Blood Count 3.48 M/mm3 (3.65-5.03); Red Cell Distribution Width 17.5 % (13.2-15.2)
[2019-07-19 06:26] LABS: Calcium 10.4 mg/dL (8.4-10.2)
[2019-07-19] MEDS: hydrALAZINE 25 MG TAB PO SCH ×3 (06:43→22:17)
[2019-07-19] MEDS: INSULIN LISPRO 100 UNIT/ML SUB-Q SCH ×5 (06:44→19:24)
[2019-07-19 07:35] LABS: Anisocytosis 1+; Band Neutrophils # (Manual) 0.1 K/mm3; Basophils % (Manual) 0 % (0.0-1.8); Eosinophils % (Manual) 0 % (0.0-4.3); Total Cells Counted 100
[2019-07-19 07:36] LABS: Platelet Estimate Consistent w Auto; Stomatocytes Rare
--- NOTE | 2019-07-19 09:00 | Progress Note ---
Assessment and Plan Acute hypoxemic respiratory failure on MVS Acute toxic metabolic encephalopathy Severe Sepsis-resolved ESRD on HD Congestive heart Failure Accelerated Hypertension H/O Seizure Mental status precludes safe extubation at this time. However her mental status continues to improve on a daily basis Continue daily PSV as tolerated. Intermittent IV analgesia for now Continue agitation management Continue all supportive care PT/OT - VAP bundle addressed (aspiration precautions, HOB>40 degrees) -Lung protective strategies -wean FiO2 for O2 sats >90% - continue bronchodilators with pulmonary hygiene per RT - Continue enteral nutrition - HD/UF per nephrology for toxin and volume clearance - conitue to monitor clinically, trend temperature curve and WCC - continue VTE prophylaxis with heparin SQ - continue stress ulcer prophylaxis with Famotidine - accuchecks with glycemic control for SSI (While critically ill target blood glucose of 140-180 mg/dL; avoid hypoglycemia) - continue mobility protocols and off loading for pressure ulcer prevention - Monitor hemodynamics closely - Fluid restrictive strategies as tolerated by hemodynamics and by her renal function - continue to avoid nephrotoxins, dose all medications for CrCL and GFR - Monitor electrolyte profile closely and replete as indicated - Chronic home medications, continue same - All other care per attending / other consultants CONDITION: CRITICAL PROGNOSIS: GUARDED CODE STATUS: FULL CODE The high probability of a clinically significant, sudden or life-threatening deterioration of the [respiratory, cardiovascular, neurology, renal] system(s) required my full and direct attention, intervention and personal management. The aggregate critical care time was [31] minutes without overlap. Time includes spent on; [x] Data Review and interpretation [x] Patient assessment and monitoring of vital signs [x] Documentation [x] Medication orders and management Subjective Date of service: 07/19/19 Principal diagnosis: Acute hypoxemic resp failure; AMS; Severe Sepsis; ESRD; CHF; HTN; Seizure Interval history: Patient is seen today for: Acute hypoxemic respiratory failure on MVS;Acute toxic metabolic encephalopathy;Severe Sepsis; ESRD on HD Seen and examined at bedside; 24hour events reviewed; nursing and respiratory care staff consulted; no adverse overnight events reported to me; Vitals, labs, medications, chart reviewed. No fevers overnight; no diarrhea, has constipation, spontaneous eye opening and obeying simple commands, HD yesterday, tolerated it well; Tolerating tube feedings with acceptable glycemic control, no vomiting. Remains critically ill, orally intubated on MVS, tolerating SBT at PS 15 Objective Vital Signs - 12hr 07/18/19 07/18/19 07/18/19 21:05 22:00 22:18 Temperature Pulse Rate 78 79 79 Pulse Rate [ From Monitor] Respiratory 13 12 Rate Blood Pressure 119/51 118/51 118/51 O2 Sat by Pulse 99 99 99 Oximetry 07/18/19 07/18/19 07/19/19 23:00 23:01 00:00 Temperature 98.6 F Pulse Rate 80 126 H 79 Pulse Rate [ 80 From Monitor] Respiratory 14 13 Rate Blood Pressure 126/51 126/51 111/45 O2 Sat by Pulse 99 99 Oximetry 07/19/19 07/19/19 07/19/19 01:00 01:11 02:00 Temperature Pulse Rate 79 79 79 Pulse Rate [ From Monitor] Respiratory 13 12 Rate Blood Pressure 116/47 116/47 111/47 O2 Sat by Pulse 100 99 99 Oximetry 07/19/19 07/19/19 07/19/19 03:00 04:00 05:00 Temperature 99.7 F H Pulse Rate 79 75 75 Pulse Rate [ 80 From Monitor] Respiratory 13 13 12 Rate Blood Pressure 116/49 122/48 115/52 O2 Sat by Pulse 99 99 99 Oximetry 07/19/19 07/19/19 07/19/19 06:00 06:32 06:43 Temperature Pulse Rate 73 73 74 Pulse Rate [ From Monitor] Respiratory 14 Rate Blood Pressure 123/52 123/52 123/52 O2 Sat by Pulse 100 100 Oximetry 07/19/19 07:56 Temperature Pulse Rate 76 Pulse Rate [ From Monitor] Respiratory Rate Blood Pressure 111/46 O2 Sat by Pulse 100 Oximetry Constitutional: no acute distress, other (middle aged thin female, normocephalic with mildly increased resp effort on MVS) Eyes: non-icteric ENT: oropharynx dry, other (ETT 23 cm JORY) Neck: supple, no lymphadenopathy, no JVD Effort: normal Ascultation: Bilateral: diminished breath sounds, rhonchi Percussion: Bilateral: not dull Cardiovascular: regular rate and rhythm Gastrointestinal: normoactive bowel sounds, soft, non-tender, non-distended Integumentary: normal, decubitus ulcer (sacral) Extremities: no cyanosis, no edema, pink and warm, pulses normal Neurologic: pupils equal and round, other (squeezes my had on command) Psychiatric: other (unable to assess re: AMS) CBC and BMP: 07/20/19 05:01 07/20/19 05:01 ABG, PT/INR, D-dimer: ABG ABG pH 7.425 pH Units (7.350-7.450) 07/13/19 05:50 ABG pCO2 42.9 mm Hg 07/13/19 05:50 ABG pO2 110.8 mm Hg (80.0-90.0) H 07/13/19 05:50 ABG O2 Saturation 98.0 % (95.0-99.0) 07/13/19 05:50 Abnormal lab findings: Abnormal Labs 07/03/19 07/03/19 07/03/19 01:00 01:00 01:00 WBC 17.9 H RBC Hgb Hct RDW 17.8 H Plt Count Lymph % (Auto) 11.7 L [place] % (Auto) [place] # 1.0 H Seg Neutrophils % 82.1 H Seg Neuts % (Manual) Seg Neutrophils # 14.7 H Seg Neutrophils # Man Monocytes # (Manual) ABG pH ABG pO2 ABG HCO3 ABG O2 Saturation ABG Base Excess ABG Hemoglobin Oxyhemoglobin Sodium Chloride 92.9 L Carbon Dioxide BUN 45 H Creatinine 5.3 H Glucose 229 H POC Glucose Hemoglobin A1c Calcium 10.5 H Phosphorus NT-Pro-B Natriuret Pep > 60470 H Albumin 2.5 L 07/03/19 07/03/19 07/03/19 01:00 01:35 04:30 WBC RBC Hgb Hct RDW Plt Count Lymph % (Auto) [place] % (Auto) [place] # Seg Neutrophils % Seg Neuts % (Manual) Seg Neutrophils # Seg Neutrophils # Man Monocytes # (Manual) ABG pH 7.555 H 7.489 H ABG pO2 65.4 L 149.9 H ABG HCO3 28.9 H 27.9 H ABG O2 Saturation ABG Base Excess 6.7 H 4.5 H ABG Hemoglobin Oxyhemoglobin 94.0 L Sodium Chloride Carbon Dioxide BUN Creatinine Glucose POC Glucose Hemoglobin A1c 7.0 H Calcium Phosphorus NT-Pro-B Natriuret Pep Albumin 07/03/19 07/03/19 07/03/19 12:10 17:35 23:59 WBC RBC Hgb Hct RDW Plt Count Lymph % (Auto) [place] % (Auto) [place] # Seg Neutrophils % Seg Neuts % (Manual) Seg Neutrophils # Seg Neutrophils # Man Monocytes # (Manual) ABG pH ABG pO2 ABG HCO3 ABG O2 Saturation ABG Base Excess ABG Hemoglobin Oxyhemoglobin Sodium Chloride Carbon Dioxide BUN Creatinine Glucose POC Glucose 246 H 163 H 112 H Hemoglobin A1c Calcium Phosphorus NT-Pro-B Natriuret Pep Albumin 07/04/19 07/04/19 07/04/19 04:24 04:56 04:56 WBC 17.3 H RBC Hgb Hct RDW 18.0 H Plt Count Lymph % (Auto) 8.7 L [place] % (Auto) [place] # 0.9 H Seg Neutrophils % 85.1 H Seg Neuts % (Manual) Seg Neutrophils # 14.8 H Seg Neutrophils # Man Monocytes # (Manual) ABG pH 7.496 H ABG pO2 74.0 L ABG HCO3 28.1 H ABG O2 Saturation ABG Base Excess 4.7 H ABG Hemoglobin Oxyhemoglobin 93.9 L Sodium Chloride 95.5 L Carbon Dioxide BUN 26 H Creatinine 3.4 H Glucose 145 H POC Glucose Hemoglobin A1c Calcium Phosphorus NT-Pro-B Natriuret Pep Albumin 07/04/19 07/04/19 07/05/19 07:04 17:56 01:45 WBC RBC Hgb Hct RDW Plt Count Lymph % (Auto) [place] % (Auto) [place] # Seg Neutrophils % Seg Neuts % (Manual) Seg Neutrophils # Seg Neutrophils # Man Monocytes # (Manual) ABG pH ABG pO2 ABG HCO3 ABG O2 Saturation ABG Base Excess ABG Hemoglobin Oxyhemoglobin Sodium Chloride Carbon Dioxide BUN Creatinine Glucose POC Glucose 162 H 273 H 148 H Hemoglobin A1c Calcium Phosphorus NT-Pro-B Natriuret Pep Albumin 07/05/19 07/05/19 07/05/19 03:07 03:07 05:57 WBC 18.7 H RBC Hgb Hct RDW 17.7 H Plt Count Lymph % (Auto) 7.6 L [place] % (Auto) [place] # 1.2 H Seg Neutrophils % 84.2 H Seg Neuts % (Manual) Seg Neutrophils # 15.7 H Seg Neutrophils # Man Monocytes # (Manual) ABG pH ABG pO2 ABG HCO3 ABG O2 Saturation ABG Base Excess ABG Hemoglobin Oxyhemoglobin Sodium Chloride 94.7 L 95.6 L Carbon Dioxide 19 L BUN 23 H 26 H Creatinine 2.7 H 2.9 H Glucose 161 H 179 H POC Glucose Hemoglobin A1c Calcium 10.3 H 10.5 H Phosphorus 5.20 H D NT-Pro-B Natriuret Pep Albumin 07/05/19 07/05/19 07/05/19 06:50 07:52 09:06 WBC 16.8 H RBC Hgb Hct RDW 18.1 H Plt Count Lymph % (Auto) 8.0 L [place] % (Auto) [place] # 1.1 H Seg Neutrophils % 84.4 H Seg Neuts % (Manual) Seg Neutrophils # 14.2 H Seg Neutrophils # Man Monocytes # (Manual) ABG pH ABG pO2 ABG HCO3 ABG O2 Saturation ABG Base Excess ABG Hemoglobin 11.7 L Oxyhemoglobin 94.6 L Sodium Chloride Carbon Dioxide BUN Creatinine Glucose POC Glucose 195 H Hemoglobin A1c Calcium Phosphorus NT-Pro-B Natriuret Pep Albumin 07/05/19 07/05/19 07/06/19 12:26 17:53 01:03 WBC RBC Hgb Hct RDW Plt Count Lymph % (Auto) [place] % (Auto) [place] # Seg Neutrophils % Seg Neuts % (Manual) Seg Neutrophils # Seg Neutrophils # Man Monocytes # (Manual) ABG pH ABG pO2 ABG HCO3 ABG O2 Saturation ABG Base Excess ABG Hemoglobin Oxyhemoglobin Sodium Chloride Carbon Dioxide BUN Creatinine Glucose POC Glucose 222 H 214 H 217 H Hemoglobin A1c Calcium Phosphorus NT-Pro-B Natriuret Pep Albumin 07/06/19 07/06/19 07/06/19 03:45 04:37 04:37 WBC 15.7 H RBC Hgb Hct RDW 17.9 H Plt Count Lymph % (Auto) 9.3 L [place] % (Auto) 8.2 H [place] # 1.3 H Seg Neutrophils % 81.5 H Seg Neuts % (Manual) Seg Neutrophils # 12.8 H Seg Neutrophils # Man Monocytes # (Manual) ABG pH ABG pO2 67.1 L ABG HCO3 ABG O2 Saturation 93.3 L ABG Base Excess ABG Hemoglobin Oxyhemoglobin 91.2 L Sodium Chloride 97.5 L Carbon Dioxide 20 L BUN 50 H Creatinine 4.5 H D Glucose 192 H POC Glucose Hemoglobin A1c Calcium Phosphorus 5.80 H NT-Pro-B Natriuret Pep Albumin 01/27/20 01/27/20 01/27/20 06:10 13:47 18:40 WBC RBC Hgb Hct RDW Plt Count Lymph % (Auto) [place] % (Auto) [place] # Seg Neutrophils % Seg Neuts % (Manual) Seg Neutrophils # Seg Neutrophils # Man Monocytes # (Manual) ABG pH ABG pO2 ABG HCO3 ABG O2 Saturation ABG Base Excess ABG Hemoglobin Oxyhemoglobin Sodium Chloride Carbon Dioxide BUN Creatinine Glucose POC Glucose 214 H 233 H 225 H Hemoglobin A1c Calcium Phosphorus NT-Pro-B Natriuret Pep Albumin 07/07/19 07/07/19 07/07/19 00:11 04:30 05:33 WBC RBC Hgb Hct RDW Plt Count Lymph % (Auto) [place] % (Auto) [place] # Seg Neutrophils % Seg Neuts % (Manual) Seg Neutrophils # Seg Neutrophils # Man Monocytes # (Manual) ABG pH ABG pO2 113.7 H ABG HCO3 28.6 H ABG O2 Saturation ABG Base Excess 4.0 H ABG Hemoglobin 11.3 L Oxyhemoglobin Sodium Chloride Carbon Dioxide BUN Creatinine Glucose POC Glucose 288 H 204 H Hemoglobin A1c Calcium Phosphorus NT-Pro-B Natriuret Pep Albumin 07/07/19 07/07/19 07/07/19 05:38 05:38 11:39 WBC 15.0 H RBC Hgb Hct RDW 18.3 H Plt Count Lymph % (Auto) 10.9 L [place] % (Auto) 8.9 H [place] # 1.3 H Seg Neutrophils % 79.6 H Seg Neuts % (Manual) Seg Neutrophils # 11.9 H Seg Neutrophils # Man Monocytes # (Manual) ABG pH ABG pO2 ABG HCO3 ABG O2 Saturation ABG Base Excess ABG Hemoglobin Oxyhemoglobin Sodium Chloride 94.8 L Carbon Dioxide BUN 32 H Creatinine 2.8 H Glucose 236 H POC Glucose 309 H Hemoglobin A1c Calcium 10.6 H Phosphorus NT-Pro-B Natriuret Pep Albumin 07/07/19 07/07/19 07/08/19 18:09 23:30 03:49 WBC RBC Hgb Hct RDW Plt Count Lymph % (Auto) [place] % (Auto) [place] # Seg Neutrophils % Seg Neuts % (Manual) Seg Neutrophils # Seg Neutrophils # Man Monocytes # (Manual) ABG pH ABG pO2 116.2 H ABG HCO3 27.7 H ABG O2 Saturation ABG Base Excess ABG Hemoglobin 11.2 L Oxyhemoglobin Sodium Chloride Carbon Dioxide BUN Creatinine Glucose POC Glucose 280 H 398 H Hemoglobin A1c Calcium Phosphorus NT-Pro-B Natriuret Pep Albumin 07/08/19 07/08/19 07/08/19 04:38 04:38 05:37 WBC 13.5 H RBC Hgb Hct RDW 18.3 H Plt Count Lymph % (Auto) [place] % (Auto) 9.5 H [place] # 1.3 H Seg Neutrophils % 75.6 H Seg Neuts % (Manual) Seg Neutrophils # 10.2 H Seg Neutrophils # Man Monocytes # (Manual) ABG pH ABG pO2 ABG HCO3 ABG O2 Saturation ABG Base Excess ABG Hemoglobin Oxyhemoglobin Sodium Chloride 94.9 L Carbon Dioxide BUN 64 H Creatinine 4.2 H Glucose 288 H POC Glucose 270 H Hemoglobin A1c Calcium 10.9 H Phosphorus NT-Pro-B Natriuret Pep Albumin 07/08/19 07/08/19 07/08/19 11:47 17:36 23:23 WBC RBC Hgb Hct RDW Plt Count Lymph % (Auto) [place] % (Auto) [place] # Seg Neutrophils % Seg Neuts % (Manual) Seg Neutrophils # Seg Neutrophils # Man Monocytes # (Manual) ABG pH ABG pO2 ABG HCO3 ABG O2 Saturation ABG Base Excess ABG Hemoglobin Oxyhemoglobin Sodium Chloride Carbon Dioxide BUN Creatinine Glucose POC Glucose 211 H 259 H 276 H Hemoglobin A1c Calcium Phosphorus NT-Pro-B Natriuret Pep Albumin 07/09/19 07/09/19 07/09/19 04:08 04:29 04:29 WBC 12.8 H RBC Hgb Hct RDW 17.7 H Plt Count Lymph % (Auto) 12.5 L [place] % (Auto) 8.4 H [place] # 1.1 H Seg Neutrophils % 77.0 H Seg Neuts % (Manual) Seg Neutrophils # 9.9 H Seg Neutrophils # Man Monocytes # (Manual) ABG pH 7.471 H ABG pO2 141.8 H ABG HCO3 32.3 H ABG O2 Saturation ABG Base Excess 7.8 H ABG Hemoglobin 11.3 L Oxyhemoglobin Sodium Chloride 94.1 L Carbon Dioxide BUN 36 H Creatinine 2.6 H Glucose 217 H POC Glucose Hemoglobin A1c Calcium 11.0 H Phosphorus NT-Pro-B Natriuret Pep Albumin 07/09/19 07/09/19 07/09/19 05:25 10:46 13:07 WBC RBC Hgb Hct RDW Plt Count Lymph % (Auto) [place] % (Auto) [place] # Seg Neutrophils % Seg Neuts % (Manual) Seg Neutrophils # Seg Neutrophils # Man Monocytes # (Manual) ABG pH ABG pO2 113.2 H ABG HCO3 30.9 H ABG O2 Saturation ABG Base Excess 6.0 H ABG Hemoglobin 10.5 L Oxyhemoglobin Sodium Chloride Carbon Dioxide BUN Creatinine Glucose POC Glucose 190 H 315 H Hemoglobin A1c Calcium Phosphorus NT-Pro-B Natriuret Pep Albumin 07/09/19 07/09/19 07/10/19 17:59 23:18 04:00 WBC RBC Hgb Hct RDW Plt Count Lymph % (Auto) [place] % (Auto) [place] # Seg Neutrophils % Seg Neuts % (Manual) Seg Neutrophils # Seg Neutrophils # Man Monocytes # (Manual) ABG pH ABG pO2 77.3 L ABG HCO3 30.4 H ABG O2 Saturation ABG Base Excess 5.1 H ABG Hemoglobin Oxyhemoglobin Sodium Chloride Carbon Dioxide BUN Creatinine Glucose POC Glucose 204 H 199 H Hemoglobin A1c Calcium Phosphorus NT-Pro-B Natriuret Pep Albumin 07/10/19 07/10/19 07/10/19 04:55 04:55 05:39 WBC 23.9 H RBC Hgb Hct RDW 18.1 H Plt Count Lymph % (Auto) [place] % (Auto) [place] # Seg Neutrophils % Seg Neuts % (Manual) 81.0 H Seg Neutrophils # Seg Neutrophils # Man 19.4 H Monocytes # (Manual) 1.0 H ABG pH ABG pO2 ABG HCO3 ABG O2 Saturation ABG Base Excess ABG Hemoglobin Oxyhemoglobin Sodium 133 L Chloride 88.0 L Carbon Dioxide BUN 64 H Creatinine 3.7 H Glucose 250 H POC Glucose 288 H Hemoglobin A1c Calcium 11.1 H Phosphorus NT-Pro-B Natriuret Pep Albumin 07/10/19 07/10/19 07/10/19 12:02 18:32 23:37 WBC RBC Hgb Hct RDW Plt Count Lymph % (Auto) [place] % (Auto) [place] # Seg Neutrophils % Seg Neuts % (Manual) Seg Neutrophils # Seg Neutrophils # Man Monocytes # (Manual) ABG pH ABG pO2 ABG HCO3 ABG O2 Saturation ABG Base Excess ABG Hemoglobin Oxyhemoglobin Sodium Chloride Carbon Dioxide BUN Creatinine Glucose POC Glucose 204 H 288 H 189 H Hemoglobin A1c Calcium Phosphorus NT-Pro-B Natriuret Pep Albumin 07/11/19 07/11/19 07/11/19 05:31 06:10 06:10 WBC 16.6 H RBC 3.60 L Hgb Hct RDW 16.8 H Plt Count Lymph % (Auto) [place] % (Auto) [place] # Seg Neutrophils % Seg Neuts % (Manual) Seg Neutrophils # Seg Neutrophils # Man Monocytes # (Manual) ABG pH ABG pO2 ABG HCO3 ABG O2 Saturation ABG Base Excess ABG Hemoglobin Oxyhemoglobin Sodium 130 L Chloride 87.4 L Carbon Dioxide BUN 47 H Creatinine 2.4 H Glucose 138 H POC Glucose 135 H Hemoglobin A1c Calcium 10.8 H Phosphorus NT-Pro-B Natriuret Pep Albumin 07/11/19 07/11/19 07/11/19 12:28 18:05 23:49 WBC RBC Hgb Hct RDW Plt Count Lymph % (Auto) [place] % (Auto) [place] # Seg Neutrophils % Seg Neuts % (Manual) Seg Neutrophils # Seg Neutrophils # Man Monocytes # (Manual) ABG pH ABG pO2 ABG HCO3 ABG O2 Saturation ABG Base Excess ABG Hemoglobin Oxyhemoglobin Sodium Chloride Carbon Dioxide BUN Creatinine Glucose POC Glucose 243 H 177 H 163 H Hemoglobin A1c Calcium Phosphorus NT-Pro-B Natriuret Pep Albumin 07/12/19 07/12/19 07/12/19 05:27 05:43 05:43 WBC 15.0 H RBC Hgb Hct RDW 17.5 H Plt Count Lymph % (Auto) [place] % (Auto) [place] # Seg Neutrophils % Seg Neuts % (Manual) Seg Neutrophils # Seg Neutrophils # Man Monocytes # (Manual) ABG pH ABG pO2 ABG HCO3 ABG O2 Saturation ABG Base Excess ABG Hemoglobin Oxyhemoglobin Sodium 128 L Chloride 85.7 L Carbon Dioxide BUN 76 H Creatinine 3.8 H D Glucose 157 H POC Glucose 156 H Hemoglobin A1c Calcium 10.8 H Phosphorus NT-Pro-B Natriuret Pep Albumin 07/12/19 07/12/19 07/13/19 12:03 18:30 00:03 WBC RBC Hgb Hct RDW Plt Count Lymph % (Auto) [place] % (Auto) [place] # Seg Neutrophils % Seg Neuts % (Manual) Seg Neutrophils # Seg Neutrophils # Man Monocytes # (Manual) ABG pH ABG pO2 ABG HCO3 ABG O2 Saturation ABG Base Excess ABG Hemoglobin Oxyhemoglobin Sodium Chloride Carbon Dioxide BUN Creatinine Glucose POC Glucose 162 H 183 H 187 H Hemoglobin A1c Calcium Phosphorus NT-Pro-B Natriuret Pep Albumin 07/13/19 07/13/19 07/13/19 05:50 05:56 07:50 WBC 13.5 H RBC 3.37 L Hgb 9.6 L Hct 28.8 L RDW 17.4 H Plt Count Lymph % (Auto) [place] % (Auto) [place] # Seg Neutrophils % Seg Neuts % (Manual) Seg Neutrophils # Seg Neutrophils # Man Monocytes # (Manual) ABG pH ABG pO2 110.8 H ABG HCO3 27.5 H ABG O2 Saturation ABG Base Excess ABG Hemoglobin 10.0 L Oxyhemoglobin Sodium Chloride Carbon Dioxide BUN Creatinine Glucose POC Glucose 216 H Hemoglobin A1c Calcium Phosphorus NT-Pro-B Natriuret Pep Albumin 07/13/19 07/13/19 07/13/19 07:50 13:18 18:09 WBC RBC Hgb Hct RDW Plt Count Lymph % (Auto) [place] % (Auto) [place] # Seg Neutrophils % Seg Neuts % (Manual) Seg Neutrophils # Seg Neutrophils # Man Monocytes # (Manual) ABG pH ABG pO2 ABG HCO3 ABG O2 Saturation ABG Base Excess ABG Hemoglobin Oxyhemoglobin Sodium 126 L Chloride 80.8 L Carbon Dioxide 21 L BUN 105 H Creatinine 4.7 H Glucose 215 H POC Glucose 187 H 202 H Hemoglobin A1c Calcium 10.3 H Phosphorus NT-Pro-B Natriuret Pep Albumin 07/13/19 07/13/19 07/14/19 19:44 23:23 04:17 WBC RBC Hgb Hct RDW 17.5 H Plt Count Lymph % (Auto) [place] % (Auto) [place] # Seg Neutrophils % Seg Neuts % (Manual) Seg Neutrophils # Seg Neutrophils # Man Monocytes # (Manual) ABG pH ABG pO2 ABG HCO3 ABG O2 Saturation ABG Base Excess ABG Hemoglobin Oxyhemoglobin Sodium 133 L D Chloride Carbon Dioxide BUN Creatinine Glucose POC Glucose 167 H Hemoglobin A1c Calcium Phosphorus NT-Pro-B Natriuret Pep Albumin 07/14/19 07/14/19 07/14/19 04:17 05:03 12:12 WBC RBC Hgb Hct RDW Plt Count Lymph % (Auto) [place] % (Auto) [place] # Seg Neutrophils % Seg Neuts % (Manual) Seg Neutrophils # Seg Neutrophils # Man Monocytes # (Manual) ABG pH ABG pO2 ABG HCO3 ABG O2 Saturation ABG Base Excess ABG Hemoglobin Oxyhemoglobin Sodium 131 L Chloride 88.8 L Carbon Dioxide BUN 47 H Creatinine 2.6 H Glucose 131 H POC Glucose 142 H 246 H Hemoglobin A1c Calcium Phosphorus NT-Pro-B Natriuret Pep Albumin 07/14/19 07/15/19 07/15/19 18:30 00:35 04:51 WBC RBC 3.51 L Hgb 9.9 L Hct 30.0 L RDW 17.6 H Plt Count 510 H Lymph % (Auto) [place] % (Auto) [place] # Seg Neutrophils % 72.4 H Seg Neuts % (Manual) Seg Neutrophils # Seg Neutrophils # Man Monocytes # (Manual) ABG pH ABG pO2 ABG HCO3 ABG O2 Saturation ABG Base Excess ABG Hemoglobin Oxyhemoglobin Sodium Chloride Carbon Dioxide BUN Creatinine Glucose POC Glucose 114 H 164 H Hemoglobin A1c Calcium Phosphorus NT-Pro-B Natriuret Pep Albumin 07/15/19 07/15/19 07/15/19 04:51 06:21 11:55 WBC RBC Hgb Hct RDW Plt Count Lymph % (Auto) [place] % (Auto) [place] # Seg Neutrophils % Seg Neuts % (Manual) Seg Neutrophils # Seg Neutrophils # Man Monocytes # (Manual) ABG pH ABG pO2 ABG HCO3 ABG O2 Saturation ABG Base Excess ABG Hemoglobin Oxyhemoglobin Sodium 134 L Chloride 88.7 L Carbon Dioxide BUN 78 H Creatinine 4.0 H D Glucose 141 H POC Glucose 135 H 172 H Hemoglobin A1c Calcium 10.4 H Phosphorus NT-Pro-B Natriuret Pep Albumin 07/15/19 07/15/19 07/15/19 17:46 18:10 23:20 WBC RBC Hgb Hct RDW Plt Count Lymph % (Auto) [place] % (Auto) [place] # Seg Neutrophils % Seg Neuts % (Manual) Seg Neutrophils # Seg Neutrophils # Man Monocytes # (Manual) ABG pH ABG pO2 ABG HCO3 ABG O2 Saturation ABG Base Excess ABG Hemoglobin Oxyhemoglobin Sodium Chloride Carbon Dioxide BUN Creatinine Glucose POC Glucose 203 H 237 H 184 H Hemoglobin A1c Calcium Phosphorus NT-Pro-B Natriuret Pep Albumin 07/16/19 07/16/19 07/16/19 04:44 04:44 05:44 WBC RBC Hgb Hct RDW 17.5 H Plt Count 605 H Lymph % (Auto) [place] % (Auto) [place] # Seg Neutrophils % 72.6 H Seg Neuts % (Manual) Seg Neutrophils # Seg Neutrophils # Man Monocytes # (Manual) ABG pH ABG pO2 ABG HCO3 ABG O2 Saturation ABG Base Excess ABG Hemoglobin Oxyhemoglobin Sodium Chloride 93.4 L Carbon Dioxide BUN 46 H Creatinine 2.6 H Glucose 125 H POC Glucose 147 H Hemoglobin A1c Calcium 10.5 H Phosphorus NT-Pro-B Natriuret Pep Albumin 07/16/19 07/16/19 07/16/19 12:17 17:55 18:06 WBC RBC Hgb Hct RDW Plt Count Lymph % (Auto) [place] % (Auto) [place] # Seg Neutrophils % Seg Neuts % (Manual) Seg Neutrophils # Seg Neutrophils # Man Monocytes # (Manual) ABG pH ABG pO2 ABG HCO3 ABG O2 Saturation ABG Base Excess ABG Hemoglobin Oxyhemoglobin Sodium Chloride Carbon Dioxide BUN Creatinine Glucose POC Glucose 222 H 129 H 121 H Hemoglobin A1c Calcium Phosphorus NT-Pro-B Natriuret Pep Albumin 07/17/19 07/17/19 07/17/19 00:31 03:58 03:58 WBC RBC Hgb Hct RDW 17.7 H Plt Count 647 H Lymph % (Auto) [place] % (Auto) 7.7 H [place] # Seg Neutrophils % Seg Neuts % (Manual) Seg Neutrophils # Seg Neutrophils # Man Monocytes # (Manual) ABG pH ABG pO2 ABG HCO3 ABG O2 Saturation ABG Base Excess ABG Hemoglobin Oxyhemoglobin Sodium 133 L Chloride 89.4 L Carbon Dioxide BUN 81 H Creatinine 3.5 H Glucose 139 H POC Glucose 195 H Hemoglobin A1c Calcium 10.8 H Phosphorus NT-Pro-B Natriuret Pep Albumin 07/17/19 07/17/19 07/17/19 05:50 13:06 17:50 WBC RBC Hgb Hct RDW Plt Count Lymph % (Auto) [place] % (Auto) [place] # Seg Neutrophils % Seg Neuts % (Manual) Seg Neutrophils # Seg Neutrophils # Man Monocytes # (Manual) ABG pH ABG pO2 ABG HCO3 ABG O2 Saturation ABG Base Excess ABG Hemoglobin Oxyhemoglobin Sodium Chloride Carbon Dioxide BUN Creatinine Glucose POC Glucose 137 H 176 H 154 H Hemoglobin A1c Calcium Phosphorus NT-Pro-B Natriuret Pep Albumin 07/17/19 07/18/19 07/18/19 23:10 05:15 05:15 WBC RBC Hgb Hct RDW 17.4 H Plt Count 645 H Lymph % (Auto) [place] % (Auto) [place] # Seg Neutrophils % 73.0 H Seg Neuts % (Manual) Seg Neutrophils # Seg Neutrophils # Man Monocytes # (Manual) ABG pH ABG pO2 ABG HCO3 ABG O2 Saturation ABG Base Excess ABG Hemoglobin Oxyhemoglobin Sodium Chloride 95.8 L Carbon Dioxide BUN 44 H Creatinine 2.3 H Glucose 164 H POC Glucose 186 H Hemoglobin A1c Calcium 10.6 H Phosphorus NT-Pro-B Natriuret Pep Albumin 07/18/19 07/18/19 07/18/19 05:55 10:24 11:57 WBC RBC Hgb Hct RDW Plt Count Lymph % (Auto) [place] % (Auto) [place] # Seg Neutrophils % Seg Neuts % (Manual) Seg Neutrophils # Seg Neutrophils # Man Monocytes # (Manual) ABG pH ABG pO2 ABG HCO3 ABG O2 Saturation ABG Base Excess ABG Hemoglobin Oxyhemoglobin Sodium Chloride Carbon Dioxide BUN Creatinine Glucose POC Glucose 146 H 161 H 236 H Hemoglobin A1c Calcium Phosphorus NT-Pro-B Natriuret Pep Albumin 07/18/19 07/18/19 07/19/19 18:15 18:34 00:56 WBC RBC Hgb Hct RDW Plt Count Lymph % (Auto) [place] % (Auto) [place] # Seg Neutrophils % Seg Neuts % (Manual) Seg Neutrophils # Seg Neutrophils # Man Monocytes # (Manual) ABG pH ABG pO2 ABG HCO3 ABG O2 Saturation ABG Base Excess ABG Hemoglobin Oxyhemoglobin Sodium Chloride Carbon Dioxide BUN Creatinine Glucose POC Glucose 110 H 109 H 245 H Hemoglobin A1c Calcium Phosphorus NT-Pro-B Natriuret Pep Albumin 07/19/19 07/19/19 07/19/19 05:31 05:31 06:11 WBC RBC 3.48 L Hgb Hct 30.1 L RDW 17.5 H Plt Count 599 H Lymph % (Auto) [place] % (Auto) Jeff Davis # Seg Neutrophils % Seg Neuts % (Manual) 80.0 H Seg Neutrophils # Seg Neutrophils # Man Monocytes # (Manual) ABG pH ABG pO2 ABG HCO3 ABG O2 Saturation ABG Base Excess ABG Hemoglobin Oxyhemoglobin Sodium Chloride 93.6 L Carbon Dioxide BUN 81 H Creatinine 3.7 H D Glucose 234 H POC Glucose 204 H Hemoglobin A1c Calcium 10.4 H Phosphorus NT-Pro-B Natriuret Pep Albumin Allied health notes reviewed: RT
--- NOTE | 2019-07-19 09:10 | Progress Note ---
Assessment and Plan Acute hypoxic respiratory failure on mechanical ventilation Acute metabolic encephalopathy ESRD on HD HTN Sepsis Hx of seizures DM Type 2 on insulin Hypercalemia Hyponatremia Plan: - s/p HD Saturday, no HD today. - Assess dialysis needs daily - Epogen dosing for anemia management as needed - Currently Intubated on Vent - as per Pulmonology - Strict I&O - Renally dose meds - This pt undergoes outpatient HD at [facility] every MWF Robert Huggins MD [phone] Subjective Date of service: 07/19/19 Principal diagnosis: Acute hypoxemic resp failure; AMS; Severe Sepsis; ESRD; CHF; HTN; Seizure Interval history: Tolerated HD Saturday. Objective - Exam Narrative Exam: General appearance: well-developed, well-nourished EENT: ATNC, PERRL, mucous membranes dry Neck: no JVD, no carotid bruit Respiratory: Present: Clear to Ascultation Cardiology: regular, S1S2 Gastrointestinal: normoactive bowel sounds Integumentary: no rash, warm and dry Neurologic: other (intubated) Musculoskeletal: other (no edema in BLE) Psychiatric: other (intubated) - Vital Signs Vital signs: Vital Signs - 12hr 07/18/19 07/18/19 07/18/19 22:00 22:18 23:00 Temperature Pulse Rate 79 79 80 Pulse Rate [ From Monitor] Respiratory 13 12 14 Rate Blood Pressure 118/51 118/51 126/51 O2 Sat by Pulse 99 99 99 Oximetry 07/18/19 07/19/19 07/19/19 23:01 00:00 01:00 Temperature 98.6 F Pulse Rate 126 H 79 79 Pulse Rate [ 80 From Monitor] Respiratory 13 13 Rate Blood Pressure 126/51 111/45 116/47 O2 Sat by Pulse 99 100 Oximetry 07/19/19 07/19/19 07/19/19 01:11 02:00 03:00 Temperature Pulse Rate 79 79 79 Pulse Rate [ From Monitor] Respiratory 12 13 Rate Blood Pressure 116/47 111/47 116/49 O2 Sat by Pulse 99 99 99 Oximetry 07/19/19 07/19/19 07/19/19 04:00 05:00 06:00 Temperature 99.7 F H Pulse Rate 75 75 73 Pulse Rate [ 80 From Monitor] Respiratory 13 12 14 Rate Blood Pressure 122/48 115/52 123/52 O2 Sat by Pulse 99 99 100 Oximetry 07/19/19 07/19/19 07/19/19 06:32 06:43 07:56 Temperature Pulse Rate 73 74 76 Pulse Rate [ From Monitor] Respiratory Rate Blood Pressure 123/52 123/52 111/46 O2 Sat by Pulse 100 100 Oximetry - Lab 07/19/19 05:31 07/19/19 05:31 Most recent lab results ABG pH 7.425 pH Units (7.350-7.450) 07/13/19 05:50 ABG pCO2 42.9 mm Hg 07/13/19 05:50 ABG pO2 110.8 mm Hg (80.0-90.0) H 07/13/19 05:50 ABG HCO3 27.5 mmol/L (20.0-26.0) H 07/13/19 05:50 ABG O2 Saturation 98.0 % (95.0-99.0) 07/13/19 05:50 Calcium 10.4 mg/dL (8.4-10.2) H 07/19/19 05:31 Phosphorus 2.60 mg/dL (2.5-4.5) D 07/09/19 04:29 Medications & Allergies - Medications Allergies/Adverse Reactions: Allergies No Known Allergies Allergy (Verified 07/03/19 10:58) Home Medications: Home Medications Medication Instructions Recorded Confirmed Last Taken Type Amlodipine Besylate [Norvasc] 10 mg PO DAILY 06/24/19 07/04/19 Unknown History AtorvaSTATin [Lipitor] 20 mg PO QHS 06/24/19 07/04/19 Unknown History Bumetanide 1 mg PO DAILY 06/24/19 07/04/19 Unknown History Cinacalcet HCl 30 mg PO DAILY 06/24/19 07/04/19 Unknown History Divalproex Sodium [Depakote 500 mg PO BID 06/24/19 07/04/19 Unknown History Sprinkle] Lispro Insulin [HumaLOG] 0 - 200 unit SQ ACHS 06/24/19 07/04/19 Unknown History Vit B Comp No.3/Folic/C/Biotin 1 each PO DAILY 06/24/19 07/04/19 Unknown History [Nephro-Umu Rx Tablet] carvediloL [Coreg] 25 mg PO BID 06/24/19 07/04/19 Unknown History hydrALAZINE [Apresoline TAB] 50 mg PO Q8HR 06/24/19 07/04/19 Unknown History ALBUTEROL NEB's [Proventil 0.083% 2.5 mg IH TIDRT #30 nebu 06/30/19 07/04/19 Unknown Rx NEBS] Lactulose [Cephulac] 20 gm PO Q8HR oral.liqd 06/30/19 07/04/19 Unknown Rx Sevelamer Carbonate [Renvela] 800 mg PO TIDWM tablet 06/30/19 07/04/19 Unknown Rx risperiDONE [RisperDAL] 0.5 mg PO BID tablet 06/30/19 07/04/19 Unknown Rx Active Medications: Generic Name Dose Route Start Last Admin Trade Name Freq PRN Reason Stop Dose Admin Acetaminophen 650 mg 07/08/19 10:00 Tylenol AL Q4H PRN Pain, Mild (1-3) Albumin Human 25 gm 07/06/19 13:42 07/08/19 11:59 Alburx 25% (Albumin) IV 25 gm FEDE PRN Administration Hypotension Amlodipine Besylate 10 mg 07/17/19 13:00 07/18/19 10:07 Amlodipine PO 10 mg QDAY YANG Administration Lipase/Protease/Amylase 1 each 07/05/19 16:27 Pancredelfino Knapp 10,500 Unit FEEDTUBE PRN PRN For Clogged Feeding Tube Bumetanide 1 mg 07/18/19 10:00 07/18/19 10:08 Bumex PO 1 mg QDAY YANG Administration Carvedilol 25 mg 07/17/19 22:00 07/18/19 23:00 Coreg PO 25 mg BID YANG Administration Cinacalcet 30 mg 07/18/19 10:00 07/18/19 10:07 Sensipar PO 30 mg QDAY YANG Administration Dextrose 0 ml 07/03/19 04:34 D50w (25gm) Syringe IV Q30MIN PRN Hypoglycemia Protocol Docusate Sodium 100 mg 07/15/19 10:00 07/18/19 23:00 Colace FEEDTUBE 100 mg BID YANG Administration Famotidine 20 mg 07/07/19 10:00 07/18/19 10:07 Pepcid PO 20 mg DAILY YANG Administration Heparin Sodium (Porcine) 5,000 unit 07/03/19 10:00 07/18/19 23:02 Heparin SUB-Q 5,000 unit Q12HR YANG Administration Hydralazine HCl 50 mg 07/17/19 14:00 07/19/19 06:43 Apresoline PO 50 mg Q8HR YANG Administration Hydrophilic Ointment 1 applic 07/03/19 00:53 Vaseline Lip Therapy TP Q2HR PRN Dry Lips Fentanyl Citrate 2,000 mcg in 100 mls @ 2.608 mls/hr 07/03/19 01:00 07/04/19 18:10 Fentanyl Drip Premix IV Infused TITR YANG Titration Protocol 1 MCG/KG/HR Sodium Chloride 100 mls @ 999 mls/hr 07/05/19 13:41 Nacl 0.9% IV FEDE PRN Hypotension Insulin Glargine 18 units 07/10/19 13:43 07/18/19 10:13 Lantus SUB-Q 18 units DAILY YANG Administration Insulin Human Lispro 0 unit 07/03/19 06:00 07/19/19 06:44 Humalog SUB-Q 4 unit Q6HR YANG Administration Protocol Multi-Ingred Cream/Lotion/Oil/Oint 1 applic 07/03/19 00:53 Artificial Tears Ophth Oint OU Q4HR PRN Dry Eye(s) Risperidone 0.5 mg 07/17/19 22:00 07/18/19 23:04 Risperdal Oral Liqd PO 0.5 mg BID YANG Administration Simple Syrup 15 ml 07/05/19 16:27 Simple Syrup FEEDTUBE PRN PRN Hypoglycemia Simple Syrup 30 ml 07/05/19 16:27 Simple Syrup FEEDTUBE PRN PRN Hypoglycemia Sodium Bicarbonate 325 mg 07/05/19 16:27 Sodium Bicarbonate FEEDTUBE PRN PRN For Clogged Feeding Tube Sodium Chloride 10 ml 07/03/19 10:00 07/18/19 10:00 Sodium Chloride Flush Syringe 10 Ml IV 10 ml BID YANG Administration Sodium Chloride 10 ml 07/03/19 04:34 07/05/19 10:42 Sodium Chloride Flush Syringe 10 Ml IV 10 ml PRN PRN Administration LINE FLUSH Valproic Acid 500 mg 07/17/19 22:00 07/18/19 23:00 Depakene Liq FEEDTUBE 500 mg BID YANG Administration
[2019-07-19] MEDS: VALPROIC ACID 250 MG/5 ML ORAL LIQD FEEDTUBE SCH ×2 (09:56→22:17)
[2019-07-19] MEDS: DOCUSATE SODIUM 100 MG/10 ML ORAL LIQD FEEDTUBE SCH ×2 (09:58→22:17)
[2019-07-19] MEDS: BUMETANIDE 1 MG TAB PO SCH (09:58)
[2019-07-19] MEDS: FAMOTIDINE 20 MG TAB PO SCH (09:58)
[2019-07-19] MEDS: amLODIPine 10 MG TAB PO SCH (09:59)
[2019-07-19] MEDS: INSULIN GLARGINE 100 UNITS/ML SUB-Q SCH (10:00)
[2019-07-19] MEDS: HEPARIN 5,000 UNIT/1 ML VIAL SUB-Q SCH ×2 (10:04→22:16)
--- NOTE | 2019-07-19 10:52 | Progress Note ---
Assessment and Plan Assessment and plan: Sepsis Source is unclear. Etiology may be secondary to pneumonia versus minimal cellulitis around sacral decubitus. If WBC worsens, consider CT chest, abdomen and pelvis with IV contrast. -Continue antibiotics per infectious disease Acute hypoxic respiratory failure -Continue mechanical ventilation per pulmonary. -Continue PSVT trials daily -Etiology secondary to CHF versus pneumonia. -Await surgery to perform trach and PEG Toxic metabolic encephalopathy -Neuro checks -Continue to treat underlying causes. ESRD on HD -M/W/F -Avoid nephrotoxic agents -Renal dose all meds -Nephrology following Congestive heart Failure -Monitor input and output. -Cardiology reported no evidence of volume overload Hypertension -Continue to monitor BP -Patient is normotensive off blood pressure medications. Insulin-dependent diabetes -POC BG monitoring -SSI coverage prn Hx Seizure -Continue anticonvulsant meds -Seizure precautions. Sacral decubitus ulcer CT non contrasted without evidence of fluid collection or osteomyelitis. DVT PPX -On Heparin Disposition. Discussed with case management possibility of LTAC The high probability of a clinically significant, sudden or life threatening deterioration of the [respiratory] system(s) required my full and direct attention, intervention and personal management. The aggregate critical care time was [32] minutes. This time is in addition to time spent performing reported procedures but includes the following: [x] Data Review and interpretation [x] Patient assessment and monitoring of vital signs [x] Documentation [x] Medication orders and management History Interval history: Patient remains orally intubated Hospitalist Physical - Constitutional Vitals: Temp Pulse Resp BP Pulse Ox 98.3 F 74 14 112/46 99 07/19/19 08:00 07/19/19 10:00 07/19/19 10:00 07/19/19 10:07/19/19 10:00 General appearance: Present: other (intubated on the vent) - EENT Eyes: Present: PERRL, EOM intact ENT: hearing intact, clear oral mucosa, dentition normal - Neck Neck: Present: supple, normal ROM - Respiratory Respiratory effort: normal Respiratory: bilateral: CTA - Cardiovascular Rhythm: regular Heart Sounds: Present: S1 & S2. Absent: gallop, rub - Extremities Extremities: no ischemia, No edema, Full ROM - Abdominal General gastrointestinal: soft, non-tender, non-distended, normal bowel sounds - Integumentary Integumentary: Present: clear, warm, dry - Neurologic Neurologic: CNII-XII intact, moves all extremities MATT score - Matt Score Age > 65: (0) No Aspirin use within the Past 7 Days: (0) No 3 or more CAD Risk Factors: (1) Yes 2 or more Angina events in past 24 hrs: (0) No Known CAD with more than 50% Stenosis: (0) No Elevated Cardiac Markers: (1) Yes ST Deviation Greater than 0.5mm: (0) No MATT Score: 2 Results - Labs CBC & Chem 7: 07/19/19 05:31 07/19/19 05:31 Labs: Laboratory Last Values WBC 9.3 K/mm3 (4.5-11.0) 07/19/19 05:31 RBC 3.48 M/mm3 (3.65-5.03) L 07/19/19 05:31 Hgb 10.1 gm/dl (10.1-14.3) 07/19/19 05:31 Hct 30.1 % (30.3-42.9) L 07/19/19 05:31 MCV 87 fl (79-97) 07/19/19 05:31 MCH 29 pg (28-32) 07/19/19 05:31 MCHC 34 % (30-34) 07/19/19 05:31 RDW 17.5 % (13.2-15.2) H 07/19/19 05:31 Plt Count 599 K/mm3 (140-440) H 07/19/19 05:31 Lymph % (Auto) 19.7 % (13.4-35.0) 07/18/19 05:15 [place] % (Auto) 5.3 % (0.0-7.3) 07/18/19 05:15 Eos % (Auto) 1.4 % (0.0-4.3) 07/18/19 05:15 Baso % (Auto) 0.6 % (0.0-1.8) 07/18/19 05:15 Lymph # 1.5 K/mm3 (1.2-5.4) 07/18/19 05:15 [place] # 0.4 K/mm3 (0.0-0.8) 07/18/19 05:15 Eos # 0.1 K/mm3 (0.0-0.4) 07/18/19 05:15 Baso # 0.0 K/mm3 (0.0-0.1) 07/18/19 05:15 Add Manual Diff Complete 07/19/19 05:31 Total Counted 100 07/19/19 05:31 Seg Neutrophils % 73.0 % (40.0-70.0) H 07/18/19 05:15 Seg Neuts % (Manual) 80.0 % (40.0-70.0) H 07/19/19 05:31 Band Neutrophils % 1.0 % 07/19/19 05:31 Lymphocytes % (Manual) 16.0 % (13.4-35.0) 07/19/19 05:31 Reactive Lymphs % (Man) 0 % 07/19/19 05:31 Monocytes % (Manual) 3.0 % (0.0-7.3) 07/19/19 05:31 Eosinophils % (Manual) 0 % (0.0-4.3) 07/19/19 05:31 Basophils % (Manual) 0 % (0.0-1.8) 07/19/19 05:31 Metamyelocytes % 0 % 07/19/19 05:31 Myelocytes % 0 % 07/19/19 05:31 Promyelocytes % 0 % 07/19/19 05:31 Blast Cells % 0 % 07/19/19 05:31 Nucleated RBC % Not Reportable 07/19/19 05:31 Seg Neutrophils # 5.5 K/mm3 (1.8-7.7) 07/18/19 05:15 Seg Neutrophils # Man 7.4 K/mm3 (1.8-7.7) 07/19/19 05:31 Band Neutrophils # 0.1 K/mm3 07/19/19 05:31 Lymphocytes # (Manual) 1.5 K/mm3 (1.2-5.4) 07/19/19 05:31 Abs React Lymphs (Man) 0.0 K/mm3 07/19/19 05:31 Monocytes # (Manual) 0.3 K/mm3 (0.0-0.8) 07/19/19 05:31 Eosinophils # (Manual) 0.0 K/mm3 (0.0-0.4) 07/19/19 05:31 Basophils # (Manual) 0.0 K/mm3 (0.0-0.1) 07/19/19 05:31 Metamyelocytes # 0.0 K/mm3 07/19/19 05:31 Myelocytes # 0.0 K/mm3 07/19/19 05:31 Promyelocytes # 0.0 K/mm3 07/19/19 05:31 Blast Cells # 0.0 K/mm3 07/19/19 05:31 WBC Morphology Not Reportable 07/19/19 05:31 Hypersegmented Neuts Not Reportable 07/19/19 05:31 Hyposegmented Neuts Not Reportable 07/19/19 05:31 Hypogranular Neuts Not Reportable 07/19/19 05:31 Smudge Cells Not Reportable 07/19/19 05:31 Toxic Granulation Not Reportable 07/19/19 05:31 Toxic Vacuolation Not Reportable 07/19/19 05:31 Dohle Bodies Not Reportable 07/19/19 05:31 Pelger-Huet Anomaly Not Reportable 07/19/19 05:31 Andrei Rods Not Reportable 07/19/19 05:31 Platelet Estimate Consistent w auto 07/19/19 05:31 Clumped Platelets Not Reportable 07/19/19 05:31 Plt Clumps, EDTA Not Reportable 07/19/19 05:31 Large Platelets Not Reportable 07/19/19 05:31 Giant Platelets Not Reportable 07/19/19 05:31 Platelet Satelliting Not Reportable 07/19/19 05:31 Plt Morphology Comment Not Reportable 07/19/19 05:31 RBC Morphology Not Reportable 07/19/19 05:31 Dimorphic RBCs Not Reportable 07/19/19 05:31 Polychromasia Not Reportable 07/19/19 05:31 Hypochromasia Not Reportable 07/19/19 05:31 Poikilocytosis Not Reportable 07/19/19 05:31 Anisocytosis 1+ 07/19/19 05:31 Microcytosis Not Reportable 07/19/19 05:31 Macrocytosis Not Reportable 07/19/19 05:31 Spherocytes Not Reportable 07/19/19 05:31 Pappenheimer Bodies Not Reportable 07/19/19 05:31 Sickle Cells Not Reportable 07/19/19 05:31 Target Cells Not Reportable 07/19/19 05:31 Tear Drop Cells Not Reportable 07/19/19 05:31 Ovalocytes Not Reportable 07/19/19 05:31 Stomatocytes Rare 07/19/19 05:31 Helmet Cells Not Reportable 07/19/19 05:31 Nye-Force Bodies Not Reportable 07/19/19 05:31 [place] Rings Not Reportable 07/19/19 05:31 Burkett Cells Not Reportable 07/19/19 05:31 Bite Cells Not Reportable 07/19/19 05:31 Crenated Cell Not Reportable 07/19/19 05:31 Elliptocytes Not Reportable 07/19/19 05:31 Acanthocytes (Spur) Not Reportable 07/19/19 05:31 Rouleaux Not Reportable 07/19/19 05:31 Hemoglobin C Crystals Not Reportable 07/19/19 05:31 Schistocytes Not Reportable 07/19/19 05:31 Malaria parasites Not Reportable 07/19/19 05:31 Tristen Bodies Not Reportable 07/19/19 05:31 Hem Pathologist Commnt No 07/19/19 05:31 ABG pH 7.425 pH Units (7.350-7.450) 07/13/19 05:50 ABG pCO2 42.9 mm Hg 07/13/19 05:50 ABG pO2 110.8 mm Hg (80.0-90.0) H 07/13/19 05:50 ABG HCO3 27.5 mmol/L (20.0-26.0) H 07/13/19 05:50 ABG O2 Saturation 98.0 % (95.0-99.0) 07/13/19 05:50 ABG O2 Content 13.7 (0.0-44) 07/13/19 05:50 ABG Base Excess 2.8 mmol/L (-2.0-3.0) 07/13/19 05:50 ABG Hemoglobin 10.0 gm/dl (12.0-16.0) L 07/13/19 05:50 ABG Carboxyhemoglobin 1.4 % (0.0-5.0) 07/13/19 05:50 ABG Methemoglobin 0.5 % (0.0-1.5) 07/13/19 05:50 Oxyhemoglobin 96.2 % (95.0-99.0) 07/13/19 05:50 FiO2 40 % 07/13/19 05:50 Sodium 139 mmol/L (137-145) 07/19/19 05:31 Potassium 4.4 mmol/L (3.6-5.0) 07/19/19 05:31 Chloride 93.6 mmol/L (98-107) L 07/19/19 05:31 Carbon Dioxide 24 mmol/L (22-30) 07/19/19 05:31 Anion Gap 26 mmol/L 07/19/19 05:31 BUN 81 mg/dL (7-17) H 07/19/19 05:31 Creatinine 3.7 mg/dL (0.7-1.2) H D 07/19/19 05:31 Estimated GFR 13 ml/min 07/19/19 05:31 BUN/Creatinine Ratio 22 % 07/19/19 05:31 Glucose 234 mg/dL (65-100) H 07/19/19 05:31 POC Glucose 204 (70-105) H 07/19/19 06:11 Hemoglobin A1c 7.0 % (4-6) H 07/03/19 01:00 Lactic Acid 1.20 mmol/L (0.7-2.0) 07/03/19 04:13 Calcium 10.4 mg/dL (8.4-10.2) H 07/19/19 05:31 Phosphorus 2.60 mg/dL (2.5-4.5) D 07/09/19 04:29 Total Bilirubin 0.30 mg/dL (0.1-1.2) 07/03/19 01:00 AST 22 units/L (5-40) 07/03/19 01:00 ALT 9 units/L (7-56) 07/03/19 01:00 Alkaline Phosphatase 101 units/L (35-129) 07/03/19 01:00 Ammonia 35.0 umol/L (25-60) 07/03/19 01:58 NT-Pro-B Natriuret Pep > 01267 pg/mL (0-900) H 07/03/19 01:00 Total Protein 7.0 g/dL (6.3-8.2) 07/03/19 01:00 Albumin 2.5 g/dL (3.9-5) L 07/03/19 01:00 Albumin/Globulin Ratio 0.6 % 07/03/19 01:00 TSH 2.600 mlU/mL (0.270-4.200) 07/03/19 01:00 Urine Color Yellow (Yellow) 07/03/19 Unknown Urine Turbidity Clear (Clear) 07/03/19 Unknown Urine pH 6.0 (5.0-7.0) 07/03/19 Unknown Ur Specific [place] 1.012 (1.003-1.030) 07/03/19 Unknown Urine Protein >500 mg/dL (Negative) 07/03/19 Unknown Urine Glucose (UA) >=500 mg/dL (Negative) 07/03/19 Unknown Urine Ketones Neg mg/dL (Negative) 07/03/19 Unknown Urine Blood Neg (Negative) 07/03/19 Unknown Urine Nitrite Neg (Negative) 07/03/19 Unknown Ur Reducing Substances Not Reportable 07/03/19 Unknown Urine Bilirubin Neg (Negative) 07/03/19 Unknown Urine Ictotest Not Reportable 07/03/19 Unknown Urine Urobilinogen < 2.0 mg/dL (<2.0) 07/03/19 Unknown Ur Leukocyte Esterase Neg (Negative) 07/03/19 Unknown Urine WBC (Auto) 1.0 /HPF (0.0-6.0) 07/03/19 Unknown Urine RBC (Auto) 2.0 /HPF (0.0-6.0) 07/03/19 Unknown U Epithel Cells (Auto) < 1.0 /HPF (0-13.0) 07/03/19 Unknown Urine Mucus Few /HPF 07/03/19 Unknown Random Vancomycin 18.7 ug/mL (0-40.0) 07/08/19 04:38 Influenza A (Rapid) Negative (Negative) 07/05/19 14:30 Influenza B (Rapid) Negative (Negative) 07/05/19 14:30 Active Medications - Current Medications Current Medications: Generic Name Dose Route Start Last Admin Trade Name Freq PRN Reason Stop Dose Admin Acetaminophen 650 mg 07/08/19 10:00 Tylenol [place] Q4H PRN Pain, Mild (1-3) Albumin Human 25 gm 07/06/19 13:42 07/08/19 11:59 Alburx 25% (Albumin) IV 25 gm FEDE PRN Administration Hypotension Amlodipine Besylate 10 mg 07/17/19 13:00 07/19/19 09:59 Amlodipine PO 10 mg QDAY YANG Administration Lipase/Protease/Amylase 1 each 07/05/19 16:27 Pancredelfino Knapp 10,500 Unit FEEDTUBE PRN PRN For Clogged Feeding Tube Bumetanide 1 mg 07/18/19 10:00 07/19/19 09:58 Bumex PO 1 mg QDAY YANG Administration Carvedilol 25 mg 07/17/19 22:00 07/18/19 23:00 Coreg PO 25 mg BID YANG Administration Cinacalcet 30 mg 07/18/19 10:00 07/18/19 10:07 Sensipar PO 30 mg QDAY YANG Administration Dextrose 0 ml 07/03/19 04:34 D50w (25gm) Syringe IV Q30MIN PRN Hypoglycemia Protocol Docusate Sodium 100 mg 07/15/19 10:00 07/19/19 09:58 Colace FEEDTUBE 100 mg BID YANG Administration Famotidine 20 mg 07/07/19 10:00 07/19/19 09:58 Pepcid PO 20 mg DAILY YANG Administration Heparin Sodium (Porcine) 5,000 unit 07/03/19 10:00 07/19/19 10:04 Heparin SUB-Q 5,000 unit Q12HR YANG Administration Hydralazine HCl 50 mg 07/17/19 14:00 07/19/19 06:43 Apresoline PO 50 mg Q8HR YANG Administration Hydrophilic Ointment 1 applic 07/03/19 00:53 Vaseline Lip Therapy TP Q2HR PRN Dry Lips Fentanyl Citrate 2,000 mcg in 100 mls @ 2.608 mls/hr 07/03/19 01:00 07/04/19 18:10 Fentanyl Drip Premix IV Infused TITR [facility] Titration Protocol 1 MCG/KG/HR Sodium Chloride 100 mls @ 999 mls/hr 07/05/19 13:41 Nacl 0.9% IV FEDE PRN Hypotension Insulin Glargine 18 units 07/10/19 13:43 07/19/19 10:00 Lantus SUB-Q 18 units DAILY YANG Administration Insulin Human Lispro 0 unit 07/03/19 06:00 07/19/19 06:44 Humalog SUB-Q 4 unit Q6HR YANG Administration Protocol Multi-Ingred Cream/Lotion/Oil/Oint 1 applic 07/03/19 00:53 Artificial Tears Ophth Oint OU Q4HR PRN Dry Eye(s) Risperidone 0.5 mg 07/17/19 22:00 07/18/19 23:04 Risperdal Oral Liqd PO 0.5 mg BID YANG Administration Simple Syrup 15 ml 07/05/19 16:27 Simple Syrup FEEDTUBE PRN PRN Hypoglycemia Simple Syrup 30 ml 07/05/19 16:27 Simple Syrup FEEDTUBE PRN PRN Hypoglycemia Sodium Bicarbonate 325 mg 07/05/19 16:27 Sodium Bicarbonate FEEDTUBE PRN PRN For Clogged Feeding Tube Sodium Chloride 10 ml 07/03/19 10:00 07/18/19 10:00 Sodium Chloride Flush Syringe 10 Ml IV 10 ml BID YANG Administration Sodium Chloride 10 ml 07/03/19 04:34 07/05/19 10:42 Sodium Chloride Flush Syringe 10 Ml IV 10 ml PRN PRN Administration LINE FLUSH Valproic Acid 500 mg 07/17/19 22:00 07/19/19 09:56 Depakene Liq FEEDTUBE 500 mg BID YANG Administration Nutrition/Malnutrition Assess - Dietary Evaluation Nutrition/Malnutrition Findings: Nutrition Notes Start: 07/06/19 08:50 Freq: Status: Active Protocol: Document 07/14/19 11:50 MK (Rec: 07/14/19 11:59 MK [id number]) Co-Sign 07/14/19 11:50 LP Nutrition Notes Initial or Follow up Reassessment Current Diagnosis CKD (stage V CKD),Decubitus( Pressure Ulcer),Diabetes,Heart Failure,Respiratory Failure Other Pertinent Diagnosis on HD, Sacral PU, seizures, bipolar disorder, metabolic encephalopathy Current Diet Nepro 1.8 at 35 ml/hr Labs/Tests Na 131 BUN 47 Cr 2.6 Pertinent Medications Lantus Heparin Height 5 ft 2 in Weight 50.3 kg [place] Body Weight (kg) 50.00 BMI 20.2 Weight change and time frame wt gain noted with renal Weight Status Appropriate Subjective/Other Information FU for tolerance and wt. Nepro 1.8 running at 35ml/hr. Percent of energy/protein needs met: 100%/100% Burn Absent Trauma Absent GI Symptoms None Current % PO Negligible Minimum of two criteria No physical signs of malnutrition #2 Nutrition Diagnosis Increased nutrient needs ( specify in comment below) Comments: Protein Diagnosis Progress(for reassessment Continues documentation) #1 Nutrition Diagnosis Inadequate oral intake Diagnosis Progress(for reassessment Continues documentation) Is patient on ventilator? Yes Is Patient Ambulatory and/or Out of Bed No REE-([facility]-confined to bed) [phone] Calculation Used for Recommendations [facility] Additional Notes Protein: 58 -96g (1.2-2g/kg) Fluid: 1-1.5 L/ day Nutrition Intervention Change Diet Order: TF Nutrition Support: Nepro 1.8 at 35ml/hr Change flush to 100 ml q4h. Kcal 1,512 Protein (gm) 68 Fluid (mL) 611 Goal #1 TF tolerance Goal #2 Wound healing Anticipated Discharge Needs: unable to determine at this time Follow-Up By: 07/21/19 Additional Comments F/U for TF tolerance.
[2019-07-19] MEDS: CINACALCET 30 MG TAB PO SCH (10:56)
[2019-07-19] MEDS: risperiDONE 1 MG/1 ML ORAL LIQD PO SCH (10:58)
[2019-07-19] MEDS: carvediloL 25 MG TAB PO SCH ×2 (11:02→22:17)
--- NOTE | 2019-07-19 14:57 | Consultation ---
History of Present Illness Consult date: 07/19/19 Chief complaint: vent - History of present illness History of present illness: 59 yo F with hx of recently treated PNA, CHF, ESRD on HD, presented to [facility] ER from [facility] on 07/03/19 with hypoxia and respiratory distress. Patient was intubated for hypoxia and admitted to the ICU. Pt being treated for sepsis. She has not been able to weaned from vent due to mental status. Surgery is consulted to evaluate patient for tracheostomy/PEG tube placement. Pt tolerating TF. No f/c. All history obtained from chart as patient is intubated and unable to provide history. Spoke with patient's son. He states that there is lengthy. The patient's first language is [place]. He states that he has seen a slow and gradual improvement in her mental status. Per the son, the patient was following some commands this morning. Past History Past Medical History: dialysis, ESRD, heart failure, hyperlipidemia, seizures, other (As noted in HPI, Bipolar, depression, early dementia.) Past Surgical History: Other (Tubal ligation, fistula left arm) Social history: other (Resident of [facility]) Medications and Allergies Allergies Allergy/AdvReac Type Severity Reaction Status Date / Time No Known Allergies Allergy Verified 07/03/19 10:58 Home Medications Medication Instructions Recorded Confirmed Last Taken Type Amlodipine Besylate [Norvasc] 10 mg PO DAILY 06/24/19 07/04/19 Unknown History AtorvaSTATin [Lipitor] 20 mg PO QHS 06/24/19 07/04/19 Unknown History Bumetanide 1 mg PO DAILY 06/24/19 07/04/19 Unknown History Cinacalcet HCl 30 mg PO DAILY 06/24/19 07/04/19 Unknown History Divalproex Sodium [Depakote 500 mg PO BID 06/24/19 07/04/19 Unknown History Sprinkle] Lispro Insulin [HumaLOG] 0 - 200 unit SQ ACHS 06/24/19 07/04/19 Unknown History Vit B Comp No.3/Folic/C/Biotin 1 each PO DAILY 06/24/19 07/04/19 Unknown History [Nephro-Umu Rx Tablet] carvediloL [Coreg] 25 mg PO BID 06/24/19 07/04/19 Unknown History hydrALAZINE [Apresoline TAB] 50 mg PO Q8HR 06/24/19 07/04/19 Unknown History ALBUTEROL NEB's [Proventil 0.083% 2.5 mg IH TIDRT #30 nebu 06/30/19 07/04/19 Unknown Rx NEBS] Lactulose [Cephulac] 20 gm PO Q8HR oral.liqd 06/30/19 07/04/19 Unknown Rx Sevelamer Carbonate [Renvela] 800 mg PO TIDWM tablet 06/30/19 07/04/19 Unknown Rx risperiDONE [RisperDAL] 0.5 mg PO BID tablet 06/30/19 07/04/19 Unknown Rx Active Meds: Active Medications Acetaminophen (Tylenol) 650 mg ME Q4H PRN PRN Reason: Pain, Mild (1-3) Albumin Human (Alburx 25% (Albumin)) 25 gm IV FEDE PRN PRN Reason: Hypotension Last Admin: 07/08/19 11:59 Dose: 25 gm Documented by: Amlodipine Besylate (Amlodipine) 10 mg PO QDAY [facility] Last Admin: 07/19/19 09:59 Dose: 10 mg Documented by: Lipase/Protease/Amylase (Pancredelfino Dr 10,500 Unit) 1 each FEEDTUBE PRN PRN PRN Reason: For Clogged Feeding Tube Bumetanide (Bumex) 1 mg PO QDAY [facility] Last Admin: 07/19/19 09:58 Dose: 1 mg Documented by: Carvedilol (Coreg) 25 mg PO BID [facility] Last Admin: 07/19/19 11:02 Dose: 25 mg Documented by: Cinacalcet (Sensipar) 30 mg PO QDAY [facility] Last Admin: 07/19/19 10:56 Dose: 30 mg Documented by: Dextrose (D50w (25gm) Syringe) 0 ml IV Q30MIN PRN; Protocol PRN Reason: Hypoglycemia Docusate Sodium (Colace) 100 mg FEEDTUBE BID [facility] Last Admin: 07/19/19 09:58 Dose: 100 mg Documented by: Famotidine (Pepcid) 20 mg PO DAILY [facility] Last Admin: 07/19/19 09:58 Dose: 20 mg Documented by: Heparin Sodium (Porcine) (Heparin) 5,000 unit SUB-Q Q12HR [facility] Last Admin: 07/19/19 10:04 Dose: 5,000 unit Documented by: Hydralazine HCl (Apresoline) 50 mg PO Q8HR [facility] Last Admin: 07/19/19 13:54 Dose: 50 mg Documented by: Hydrophilic Ointment (Vaseline Lip Therapy) 1 applic TP Q2HR PRN PRN Reason: Dry Lips Fentanyl Citrate (Fentanyl Drip Premix) 2,000 mcg in 100 mls @ 2.608 mls/hr IV TITR [facility]; Protocol Last Titration: 07/04/19 18:10 Dose: Infused Documented by: Sodium Chloride (Nacl 0.9%) 100 mls @ 999 mls/hr IV FEDE PRN PRN Reason: Hypotension Insulin Glargine (Lantus) 18 units SUB-Q DAILY [facility] Last Admin: 07/19/19 10:00 Dose: 18 units Documented by: Insulin Human Lispro (Humalog) 0 unit SUB-Q Q6HR [facility]; Protocol Last Admin: 07/19/19 13:51 Dose: 3 unit Documented by: Multi-Ingred Cream/Lotion/Oil/Oint (Artificial Tears Ophth Oint) 1 applic OU Q4HR PRN PRN Reason: Dry Eye(s) Risperidone (Risperdal Oral Liqd) 0.5 mg PO BID [facility] Last Admin: 07/19/19 10:58 Dose: 0.5 mg Documented by: Simple Syrup (Simple Syrup) 15 ml FEEDTUBE PRN PRN PRN Reason: Hypoglycemia Simple Syrup (Simple Syrup) 30 ml FEEDTUBE PRN PRN PRN Reason: Hypoglycemia Sodium Bicarbonate (Sodium Bicarbonate) 325 mg FEEDTUBE PRN PRN PRN Reason: For Clogged Feeding Tube Sodium Chloride (Sodium Chloride Flush Syringe 10 Ml) 10 ml IV BID [facility] Last Admin: 07/19/19 11:03 Dose: 10 ml Documented by: Sodium Chloride (Sodium Chloride Flush Syringe 10 Ml) 10 ml IV PRN PRN PRN Reason: LINE FLUSH Last Admin: 07/05/19 10:42 Dose: 10 ml Documented by: Valproic Acid (Depakene Liq) 500 mg FEEDTUBE BID [facility] Last Admin: 07/19/19 09:56 Dose: 500 mg Documented by: Review of Systems ROS unobtainable: due to endotracheal tube, due to mental status Exam Vital Signs Pulse Resp Pulse Ox 81 14 87 07/03/19 00:32 07/03/19 00:32 07/03/19 00:32 Narrative exam: General: Intubated. Does not respond to painful stimuli. Does not follow commands. ENT: NG tube and ET tube in place. Trachea midline. No lymphadenopathy. CV: S1, S2 present Respiratory: CTAB, no w/r/r Abdomen: Soft, nontender, nondistended Extremities: No clubbing, cyanosis, edema. Bilateral feet show evidence of foot drop Results - Labs 07/19/19 05:31 07/19/19 05:31 Abnormal lab results 07/18/19 07/18/19 07/19/19 Range/Units 18:15 18:34 00:56 RBC (3.65-5.03) M/mm3 Hct (30.3-42.9) % RDW (13.2-15.2) % Plt Count (140-440) K/mm3 Seg Neuts % (Manual) (40.0-70.0) % Chloride (98-107) mmol/L BUN (7-17) mg/dL Creatinine (0.7-1.2) mg/dL Glucose (65-100) mg/dL POC Glucose 110 H 109 H 245 H (70-105) Calcium (8.4-10.2) mg/dL 07/19/19 07/19/19 07/19/19 Range/Units 05:31 05:31 06:11 RBC 3.48 L (3.65-5.03) M/mm3 Hct 30.1 L (30.3-42.9) % RDW 17.5 H (13.2-15.2) % Plt Count 599 H (140-440) K/mm3 Seg Neuts % (Manual) 80.0 H (40.0-70.0) % Chloride 93.6 L (98-107) mmol/L BUN 81 H (7-17) mg/dL Creatinine 3.7 H D (0.7-1.2) mg/dL Glucose 234 H (65-100) mg/dL POC Glucose 204 H (70-105) Calcium 10.4 H (8.4-10.2) mg/dL 07/19/19 Range/Units 12:19 RBC (3.65-5.03) M/mm3 Hct (30.3-42.9) % RDW (13.2-15.2) % Plt Count (140-440) K/mm3 Seg Neuts % (Manual) (40.0-70.0) % Chloride (98-107) mmol/L BUN (7-17) mg/dL Creatinine (0.7-1.2) mg/dL Glucose (65-100) mg/dL POC Glucose 187 H (70-105) Calcium (8.4-10.2) mg/dL Diabetes panel 07/19/19 Range/Units 05:31 Sodium 139 (137-145) mmol/L Potassium 4.4 (3.6-5.0) mmol/L Chloride 93.6 L (98-107) mmol/L Carbon Dioxide 24 (22-30) mmol/L BUN 81 H (7-17) mg/dL Creatinine 3.7 H D (0.7-1.2) mg/dL Glucose 234 H (65-100) mg/dL Calcium 10.4 H (8.4-10.2) mg/dL Calcium panel 07/19/19 Range/Units 05:31 Calcium 10.4 H (8.4-10.2) mg/dL Pituitary panel 07/19/19 Range/Units 05:31 Sodium 139 (137-145) mmol/L Potassium 4.4 (3.6-5.0) mmol/L Chloride 93.6 L (98-107) mmol/L Carbon Dioxide 24 (22-30) mmol/L BUN 81 H (7-17) mg/dL Creatinine 3.7 H D (0.7-1.2) mg/dL Glucose 234 H (65-100) mg/dL Calcium 10.4 H (8.4-10.2) mg/dL Adrenal panel 07/19/19 Range/Units 05:31 Sodium 139 (137-145) mmol/L Potassium 4.4 (3.6-5.0) mmol/L Chloride 93.6 L (98-107) mmol/L Carbon Dioxide 24 (22-30) mmol/L BUN 81 H (7-17) mg/dL Creatinine 3.7 H D (0.7-1.2) mg/dL Glucose 234 H (65-100) mg/dL Calcium 10.4 H (8.4-10.2) mg/dL - Imaging Chest x-ray: report reviewed, image reviewed Assessment and Plan 59 yo F with VDRF Plan: 1. Pt has been intubated for 16 days. She is an acceptable candidate for tracheostomy/PEG tube placement. I discussed the procedures with the patient's son in law/DARELL Anderson Lissette over the telephone. He understands the indication for the procedures. He would like to speak with his (patient's daughter) regarding the procedures and will then make a decision. Will follow up with them in the next 1-2 days. If they are agreeable to proceed, will start working on scheduling. 2. continue vent management per ICU 3. continue TF - patient tolerating 4. DVT ppx Thank you, please call with questions.
[2019-07-20 05:37] LABS: Basophils % (Auto) 0.4 % (0.0-1.8); Eosinophils # (Auto) 0.3 K/mm3 (0.0-0.4); Eosinophils % (Auto) 3.2 % (0.0-4.3); Hematocrit 26.7 % (30.3-42.9); Hemoglobin 8.9 gm/dl (10.1-14.3); Lymphocytes # (Auto) 2.2 K/mm3 (1.2-5.4); Lymphocytes % (Auto) 24.3 % (13.4-35.0); Mean Corpuscular HGB Conc 33 % (30-34); Mean Corpuscular Volume 86 fl (79-97); Monocytes # (Auto) 0.4 K/mm3 (0.0-0.8); Monocytes % (Auto) 4.6 % (0.0-7.3); Platelet Count 552 K/mm3 (140-440); Red Blood Count 3.13 M/mm3 (3.65-5.03); Red Cell Distribution Width 17.4 % (13.2-15.2)
[2019-07-20] MEDS: hydrALAZINE 25 MG TAB PO SCH ×3 (06:36→22:19)
[2019-07-20] MEDS: INSULIN LISPRO 100 UNIT/ML SUB-Q SCH ×5 (06:36→23:41)
[2019-07-20] MEDS: risperiDONE 1 MG/1 ML ORAL LIQD PO SCH ×2 (06:37→12:41)
--- NOTE | 2019-07-20 09:36 | Progress Note ---
Assessment and Plan Acute hypoxemic respiratory failure on MVS Acute toxic metabolic encephalopathy Severe Sepsis-resolved ESRD on HD Congestive heart Failure Accelerated Hypertension H/O Seizure Mental status precludes safe extubation at this time. Continue daily PSV as tolerated. Intermittent IV analgesia for now Continue agitation management Continue all supportive care Reasonable to consider trach and PEG if she is not liberated from MVS in the next few days PT/OT Discussed with general surgery service - VAP bundle addressed (aspiration precautions, HOB>40 degrees) -Lung protective strategies -wean FiO2 for O2 sats >90% - continue bronchodilators with pulmonary hygiene per RT - Continue enteral nutrition - HD/UF per nephrology for toxin and volume clearance - conitue to monitor clinically, trend temperature curve and WCC - continue VTE prophylaxis with heparin SQ - continue stress ulcer prophylaxis with Famotidine - accuchecks with glycemic control for SSI (While critically ill target blood glucose of 140-180 mg/dL; avoid hypoglycemia) - continue mobility protocols and off loading for pressure ulcer prevention - Monitor hemodynamics closely - Fluid restrictive strategies as tolerated by hemodynamics and by her renal function - continue to avoid nephrotoxins, dose all medications for CrCL and GFR - Monitor electrolyte profile closely and replete as indicated - Chronic home medications, continue same - All other care per attending / other consultants CONDITION: CRITICAL PROGNOSIS: GUARDED CODE STATUS: FULL CODE The high probability of a clinically significant, sudden or life-threatening deterioration of the [respiratory, cardiovascular, neurology, renal] system(s) required my full and direct attention, intervention and personal management. The aggregate critical care time was [31] minutes without overlap. Time includes spent on; [x] Data Review and interpretation [x] Patient assessment and monitoring of vital signs [x] Documentation [x] Medication orders and management Subjective Date of service: 07/20/19 Principal diagnosis: Acute hypoxemic resp failure; AMS; Severe Sepsis; ESRD; CHF; HTN; Seizure Interval history: Patient is seen today for: Acute hypoxemic respiratory failure on MVS;Acute toxic metabolic encephalopathy;Severe Sepsis; ESRD on HD Seen and examined at bedside; 24hour events reviewed; nursing and respiratory care staff consulted; no adverse overnight events reported to me; Vitals, labs, medications, chart reviewed. No fevers overnight; no diarrhea, has constipation, spontaneous eye opening and obeying simple commands, Tolerating tube feedings with acceptable glycemic control, no vomiting. Remains critically ill, orally intubated on MVS, did not tolerate SBT today, tachypnic and tachycardic per RT Objective Vital Signs - 12hr 07/19/19 07/19/19 07/19/19 22:00 22:16 22:17 Temperature Pulse Rate 68 69 69 Pulse Rate [ From Monitor] Respiratory 13 12 Rate Blood Pressure 134/47 134/47 134/47 O2 Sat by Pulse 99 100 Oximetry 07/19/19 07/20/19 07/20/19 23:00 00:00 00:30 Temperature 98.8 F Pulse Rate 71 71 70 Pulse Rate [ 70 From Monitor] Respiratory 12 13 Rate Blood Pressure 118/44 120/44 120/44 O2 Sat by Pulse 99 100 99 Oximetry 07/20/19 07/20/19 07/20/19 01:00 02:00 03:00 Temperature Pulse Rate 71 72 72 Pulse Rate [ From Monitor] Respiratory 12 14 14 Rate Blood Pressure 128/45 106/47 129/45 O2 Sat by Pulse 99 99 99 Oximetry 07/20/19 07/20/19 07/20/19 04:00 05:00 05:49 Temperature 98.8 F Pulse Rate 72 74 71 Pulse Rate [ 71 From Monitor] Respiratory 13 13 Rate Blood Pressure 124/45 132/49 132/49 O2 Sat by Pulse 99 99 99 Oximetry 07/20/19 07/20/19 07/20/19 06:00 06:36 07:00 Temperature Pulse Rate 71 72 71 Pulse Rate [ From Monitor] Respiratory 14 13 Rate Blood Pressure 122/46 122/46 132/48 O2 Sat by Pulse 99 99 Oximetry 07/20/19 08:00 Temperature Pulse Rate 75 Pulse Rate [ 74 From Monitor] Respiratory 14 Rate Blood Pressure 116/46 O2 Sat by Pulse 99 Oximetry Constitutional: no acute distress, other (middle aged thin female, normocephalic with mildly increased resp effort on MVS) Eyes: non-icteric ENT: oropharynx dry, other (ETT 23 cm JORY) Neck: supple, no lymphadenopathy, no JVD Effort: normal Ascultation: Bilateral: diminished breath sounds, rhonchi Percussion: Bilateral: not dull Cardiovascular: regular rate and rhythm Gastrointestinal: normoactive bowel sounds, soft, non-tender, non-distended Integumentary: normal, decubitus ulcer (sacral) Extremities: no cyanosis, no edema, pink and warm, pulses normal Neurologic: pupils equal and round, other (squeezes my had on command) Psychiatric: other (unable to assess re: AMS) CBC and BMP: 07/20/19 05:01 07/20/19 05:01 ABG, PT/INR, D-dimer: ABG ABG pH 7.425 pH Units (7.350-7.450) 07/13/19 05:50 ABG pCO2 42.9 mm Hg 07/13/19 05:50 ABG pO2 110.8 mm Hg (80.0-90.0) H 07/13/19 05:50 ABG O2 Saturation 98.0 % (95.0-99.0) 07/13/19 05:50 Abnormal lab findings: Abnormal Labs 07/03/19 07/03/19 07/03/19 01:00 01:00 01:00 WBC 17.9 H RBC Hgb Hct RDW 17.8 H Plt Count Lymph % (Auto) 11.7 L [place] % (Auto) [place] # 1.0 H Seg Neutrophils % 82.1 H Seg Neuts % (Manual) Seg Neutrophils # 14.7 H Seg Neutrophils # Man Monocytes # (Manual) ABG pH ABG pO2 ABG HCO3 ABG O2 Saturation ABG Base Excess ABG Hemoglobin Oxyhemoglobin Sodium Chloride 92.9 L Carbon Dioxide BUN 45 H Creatinine 5.3 H Glucose 229 H POC Glucose Hemoglobin A1c Calcium 10.5 H Phosphorus NT-Pro-B Natriuret Pep > 69511 H Albumin 2.5 L 07/03/19 07/03/19 07/03/19 01:00 01:35 04:30 WBC RBC Hgb Hct RDW Plt Count Lymph % (Auto) [place] % (Auto) [place] # Seg Neutrophils % Seg Neuts % (Manual) Seg Neutrophils # Seg Neutrophils # Man Monocytes # (Manual) ABG pH 7.555 H 7.489 H ABG pO2 65.4 L 149.9 H ABG HCO3 28.9 H 27.9 H ABG O2 Saturation ABG Base Excess 6.7 H 4.5 H ABG Hemoglobin Oxyhemoglobin 94.0 L Sodium Chloride Carbon Dioxide BUN Creatinine Glucose POC Glucose Hemoglobin A1c 7.0 H Calcium Phosphorus NT-Pro-B Natriuret Pep Albumin 07/03/19 07/03/19 07/03/19 12:10 17:35 23:59 WBC RBC Hgb Hct RDW Plt Count Lymph % (Auto) [place] % (Auto) [place] # Seg Neutrophils % Seg Neuts % (Manual) Seg Neutrophils # Seg Neutrophils # Man Monocytes # (Manual) ABG pH ABG pO2 ABG HCO3 ABG O2 Saturation ABG Base Excess ABG Hemoglobin Oxyhemoglobin Sodium Chloride Carbon Dioxide BUN Creatinine Glucose POC Glucose 246 H 163 H 112 H Hemoglobin A1c Calcium Phosphorus NT-Pro-B Natriuret Pep Albumin 07/04/19 07/04/19 07/04/19 04:24 04:56 04:56 WBC 17.3 H RBC Hgb Hct RDW 18.0 H Plt Count Lymph % (Auto) 8.7 L [place] % (Auto) [place] # 0.9 H Seg Neutrophils % 85.1 H Seg Neuts % (Manual) Seg Neutrophils # 14.8 H Seg Neutrophils # Man Monocytes # (Manual) ABG pH 7.496 H ABG pO2 74.0 L ABG HCO3 28.1 H ABG O2 Saturation ABG Base Excess 4.7 H ABG Hemoglobin Oxyhemoglobin 93.9 L Sodium Chloride 95.5 L Carbon Dioxide BUN 26 H Creatinine 3.4 H Glucose 145 H POC Glucose Hemoglobin A1c Calcium Phosphorus NT-Pro-B Natriuret Pep Albumin 07/04/19 07/04/19 07/05/19 07:04 17:56 01:45 WBC RBC Hgb Hct RDW Plt Count Lymph % (Auto) [place] % (Auto) [place] # Seg Neutrophils % Seg Neuts % (Manual) Seg Neutrophils # Seg Neutrophils # Man Monocytes # (Manual) ABG pH ABG pO2 ABG HCO3 ABG O2 Saturation ABG Base Excess ABG Hemoglobin Oxyhemoglobin Sodium Chloride Carbon Dioxide BUN Creatinine Glucose POC Glucose 162 H 273 H 148 H Hemoglobin A1c Calcium Phosphorus NT-Pro-B Natriuret Pep Albumin 07/05/19 07/05/19 07/05/19 03:07 03:07 05:57 WBC 18.7 H RBC Hgb Hct RDW 17.7 H Plt Count Lymph % (Auto) 7.6 L [place] % (Auto) [place] # 1.2 H Seg Neutrophils % 84.2 H Seg Neuts % (Manual) Seg Neutrophils # 15.7 H Seg Neutrophils # Man Monocytes # (Manual) ABG pH ABG pO2 ABG HCO3 ABG O2 Saturation ABG Base Excess ABG Hemoglobin Oxyhemoglobin Sodium Chloride 94.7 L 95.6 L Carbon Dioxide 19 L BUN 23 H 26 H Creatinine 2.7 H 2.9 H Glucose 161 H 179 H POC Glucose Hemoglobin A1c Calcium 10.3 H 10.5 H Phosphorus 5.20 H D NT-Pro-B Natriuret Pep Albumin 07/05/19 07/05/19 07/05/19 06:50 07:52 09:06 WBC 16.8 H RBC Hgb Hct RDW 18.1 H Plt Count Lymph % (Auto) 8.0 L [place] % (Auto) [place] # 1.1 H Seg Neutrophils % 84.4 H Seg Neuts % (Manual) Seg Neutrophils # 14.2 H Seg Neutrophils # Man Monocytes # (Manual) ABG pH ABG pO2 ABG HCO3 ABG O2 Saturation ABG Base Excess ABG Hemoglobin 11.7 L Oxyhemoglobin 94.6 L Sodium Chloride Carbon Dioxide BUN Creatinine Glucose POC Glucose 195 H Hemoglobin A1c Calcium Phosphorus NT-Pro-B Natriuret Pep Albumin 07/05/19 07/05/19 07/06/19 12:26 17:53 01:03 WBC RBC Hgb Hct RDW Plt Count Lymph % (Auto) [place] % (Auto) [place] # Seg Neutrophils % Seg Neuts % (Manual) Seg Neutrophils # Seg Neutrophils # Man Monocytes # (Manual) ABG pH ABG pO2 ABG HCO3 ABG O2 Saturation ABG Base Excess ABG Hemoglobin Oxyhemoglobin Sodium Chloride Carbon Dioxide BUN Creatinine Glucose POC Glucose 222 H 214 H 217 H Hemoglobin A1c Calcium Phosphorus NT-Pro-B Natriuret Pep Albumin 07/06/19 07/06/19 07/06/19 03:45 04:37 04:37 WBC 15.7 H RBC Hgb Hct RDW 17.9 H Plt Count Lymph % (Auto) 9.3 L [place] % (Auto) 8.2 H [place] # 1.3 H Seg Neutrophils % 81.5 H Seg Neuts % (Manual) Seg Neutrophils # 12.8 H Seg Neutrophils # Man Monocytes # (Manual) ABG pH ABG pO2 67.1 L ABG HCO3 ABG O2 Saturation 93.3 L ABG Base Excess ABG Hemoglobin Oxyhemoglobin 91.2 L Sodium Chloride 97.5 L Carbon Dioxide 20 L BUN 50 H Creatinine 4.5 H D Glucose 192 H POC Glucose Hemoglobin A1c Calcium Phosphorus 5.80 H NT-Pro-B Natriuret Pep Albumin 07/06/19 07/06/19 07/06/19 06:10 13:47 18:40 WBC RBC Hgb Hct RDW Plt Count Lymph % (Auto) [place] % (Auto) [place] # Seg Neutrophils % Seg Neuts % (Manual) Seg Neutrophils # Seg Neutrophils # Man Monocytes # (Manual) ABG pH ABG pO2 ABG HCO3 ABG O2 Saturation ABG Base Excess ABG Hemoglobin Oxyhemoglobin Sodium Chloride Carbon Dioxide BUN Creatinine Glucose POC Glucose 214 H 233 H 225 H Hemoglobin A1c Calcium Phosphorus NT-Pro-B Natriuret Pep Albumin 07/07/19 07/07/19 07/07/19 00:11 04:30 05:33 WBC RBC Hgb Hct RDW Plt Count Lymph % (Auto) [place] % (Auto) [place] # Seg Neutrophils % Seg Neuts % (Manual) Seg Neutrophils # Seg Neutrophils # Man Monocytes # (Manual) ABG pH ABG pO2 113.7 H ABG HCO3 28.6 H ABG O2 Saturation ABG Base Excess 4.0 H ABG Hemoglobin 11.3 L Oxyhemoglobin Sodium Chloride Carbon Dioxide BUN Creatinine Glucose POC Glucose 288 H 204 H Hemoglobin A1c Calcium Phosphorus NT-Pro-B Natriuret Pep Albumin 07/07/19 07/07/19 07/07/19 05:38 05:38 11:39 WBC 15.0 H RBC Hgb Hct RDW 18.3 H Plt Count Lymph % (Auto) 10.9 L [place] % (Auto) 8.9 H [place] # 1.3 H Seg Neutrophils % 79.6 H Seg Neuts % (Manual) Seg Neutrophils # 11.9 H Seg Neutrophils # Man Monocytes # (Manual) ABG pH ABG pO2 ABG HCO3 ABG O2 Saturation ABG Base Excess ABG Hemoglobin Oxyhemoglobin Sodium Chloride 94.8 L Carbon Dioxide BUN 32 H Creatinine 2.8 H Glucose 236 H POC Glucose 309 H Hemoglobin A1c Calcium 10.6 H Phosphorus NT-Pro-B Natriuret Pep Albumin 07/07/19 07/07/19 07/08/19 18:09 23:30 03:49 WBC RBC Hgb Hct RDW Plt Count Lymph % (Auto) [place] % (Auto) [place] # Seg Neutrophils % Seg Neuts % (Manual) Seg Neutrophils # Seg Neutrophils # Man Monocytes # (Manual) ABG pH ABG pO2 116.2 H ABG HCO3 27.7 H ABG O2 Saturation ABG Base Excess ABG Hemoglobin 11.2 L Oxyhemoglobin Sodium Chloride Carbon Dioxide BUN Creatinine Glucose POC Glucose 280 H 398 H Hemoglobin A1c Calcium Phosphorus NT-Pro-B Natriuret Pep Albumin 07/08/19 07/08/19 07/08/19 04:38 04:38 05:37 WBC 13.5 H RBC Hgb Hct RDW 18.3 H Plt Count Lymph % (Auto) [place] % (Auto) 9.5 H [place] # 1.3 H Seg Neutrophils % 75.6 H Seg Neuts % (Manual) Seg Neutrophils # 10.2 H Seg Neutrophils # Man Monocytes # (Manual) ABG pH ABG pO2 ABG HCO3 ABG O2 Saturation ABG Base Excess ABG Hemoglobin Oxyhemoglobin Sodium Chloride 94.9 L Carbon Dioxide BUN 64 H Creatinine 4.2 H Glucose 288 H POC Glucose 270 H Hemoglobin A1c Calcium 10.9 H Phosphorus NT-Pro-B Natriuret Pep Albumin 07/08/19 07/08/19 07/08/19 11:47 17:36 23:23 WBC RBC Hgb Hct RDW Plt Count Lymph % (Auto) [place] % (Auto) [place] # Seg Neutrophils % Seg Neuts % (Manual) Seg Neutrophils # Seg Neutrophils # Man Monocytes # (Manual) ABG pH ABG pO2 ABG HCO3 ABG O2 Saturation ABG Base Excess ABG Hemoglobin Oxyhemoglobin Sodium Chloride Carbon Dioxide BUN Creatinine Glucose POC Glucose 211 H 259 H 276 H Hemoglobin A1c Calcium Phosphorus NT-Pro-B Natriuret Pep Albumin 07/09/19 07/09/19 07/09/19 04:08 04:29 04:29 WBC 12.8 H RBC Hgb Hct RDW 17.7 H Plt Count Lymph % (Auto) 12.5 L [place] % (Auto) 8.4 H [place] # 1.1 H Seg Neutrophils % 77.0 H Seg Neuts % (Manual) Seg Neutrophils # 9.9 H Seg Neutrophils # Man Monocytes # (Manual) ABG pH 7.471 H ABG pO2 141.8 H ABG HCO3 32.3 H ABG O2 Saturation ABG Base Excess 7.8 H ABG Hemoglobin 11.3 L Oxyhemoglobin Sodium Chloride 94.1 L Carbon Dioxide BUN 36 H Creatinine 2.6 H Glucose 217 H POC Glucose Hemoglobin A1c Calcium 11.0 H Phosphorus NT-Pro-B Natriuret Pep Albumin 07/09/19 07/09/19 07/09/19 05:25 10:46 13:07 WBC RBC Hgb Hct RDW Plt Count Lymph % (Auto) [place] % (Auto) [place] # Seg Neutrophils % Seg Neuts % (Manual) Seg Neutrophils # Seg Neutrophils # Man Monocytes # (Manual) ABG pH ABG pO2 113.2 H ABG HCO3 30.9 H ABG O2 Saturation ABG Base Excess 6.0 H ABG Hemoglobin 10.5 L Oxyhemoglobin Sodium Chloride Carbon Dioxide BUN Creatinine Glucose POC Glucose 190 H 315 H Hemoglobin A1c Calcium Phosphorus NT-Pro-B Natriuret Pep Albumin 07/09/19 07/09/19 07/10/19 17:59 23:18 04:00 WBC RBC Hgb Hct RDW Plt Count Lymph % (Auto) [place] % (Auto) [place] # Seg Neutrophils % Seg Neuts % (Manual) Seg Neutrophils # Seg Neutrophils # Man Monocytes # (Manual) ABG pH ABG pO2 77.3 L ABG HCO3 30.4 H ABG O2 Saturation ABG Base Excess 5.1 H ABG Hemoglobin Oxyhemoglobin Sodium Chloride Carbon Dioxide BUN Creatinine Glucose POC Glucose 204 H 199 H Hemoglobin A1c Calcium Phosphorus NT-Pro-B Natriuret Pep Albumin 07/10/19 07/10/19 07/10/19 04:55 04:55 05:39 WBC 23.9 H RBC Hgb Hct RDW 18.1 H Plt Count Lymph % (Auto) [place] % (Auto) [place] # Seg Neutrophils % Seg Neuts % (Manual) 81.0 H Seg Neutrophils # Seg Neutrophils # Man 19.4 H Monocytes # (Manual) 1.0 H ABG pH ABG pO2 ABG HCO3 ABG O2 Saturation ABG Base Excess ABG Hemoglobin Oxyhemoglobin Sodium 133 L Chloride 88.0 L Carbon Dioxide BUN 64 H Creatinine 3.7 H Glucose 250 H POC Glucose 288 H Hemoglobin A1c Calcium 11.1 H Phosphorus NT-Pro-B Natriuret Pep Albumin 07/10/19 07/10/19 07/10/19 12:02 18:32 23:37 WBC RBC Hgb Hct RDW Plt Count Lymph % (Auto) [place] % (Auto) [place] # Seg Neutrophils % Seg Neuts % (Manual) Seg Neutrophils # Seg Neutrophils # Man Monocytes # (Manual) ABG pH ABG pO2 ABG HCO3 ABG O2 Saturation ABG Base Excess ABG Hemoglobin Oxyhemoglobin Sodium Chloride Carbon Dioxide BUN Creatinine Glucose POC Glucose 204 H 288 H 189 H Hemoglobin A1c Calcium Phosphorus NT-Pro-B Natriuret Pep Albumin 07/11/19 07/11/19 07/11/19 05:31 06:10 06:10 WBC 16.6 H RBC 3.60 L Hgb Hct RDW 16.8 H Plt Count Lymph % (Auto) [place] % (Auto) [place] # Seg Neutrophils % Seg Neuts % (Manual) Seg Neutrophils # Seg Neutrophils # Man Monocytes # (Manual) ABG pH ABG pO2 ABG HCO3 ABG O2 Saturation ABG Base Excess ABG Hemoglobin Oxyhemoglobin Sodium 130 L Chloride 87.4 L Carbon Dioxide BUN 47 H Creatinine 2.4 H Glucose 138 H POC Glucose 135 H Hemoglobin A1c Calcium 10.8 H Phosphorus NT-Pro-B Natriuret Pep Albumin 07/11/19 07/11/19 07/11/19 12:28 18:05 23:49 WBC RBC Hgb Hct RDW Plt Count Lymph % (Auto) [place] % (Auto) [place] # Seg Neutrophils % Seg Neuts % (Manual) Seg Neutrophils # Seg Neutrophils # Man Monocytes # (Manual) ABG pH ABG pO2 ABG HCO3 ABG O2 Saturation ABG Base Excess ABG Hemoglobin Oxyhemoglobin Sodium Chloride Carbon Dioxide BUN Creatinine Glucose POC Glucose 243 H 177 H 163 H Hemoglobin A1c Calcium Phosphorus NT-Pro-B Natriuret Pep Albumin 07/12/19 07/12/19 07/12/19 05:27 05:43 05:43 WBC 15.0 H RBC Hgb Hct RDW 17.5 H Plt Count Lymph % (Auto) [place] % (Auto) [place] # Seg Neutrophils % Seg Neuts % (Manual) Seg Neutrophils # Seg Neutrophils # Man Monocytes # (Manual) ABG pH ABG pO2 ABG HCO3 ABG O2 Saturation ABG Base Excess ABG Hemoglobin Oxyhemoglobin Sodium 128 L Chloride 85.7 L Carbon Dioxide BUN 76 H Creatinine 3.8 H D Glucose 157 H POC Glucose 156 H Hemoglobin A1c Calcium 10.8 H Phosphorus NT-Pro-B Natriuret Pep Albumin 07/12/19 07/12/19 07/13/19 12:03 18:30 00:03 WBC RBC Hgb Hct RDW Plt Count Lymph % (Auto) [place] % (Auto) [place] # Seg Neutrophils % Seg Neuts % (Manual) Seg Neutrophils # Seg Neutrophils # Man Monocytes # (Manual) ABG pH ABG pO2 ABG HCO3 ABG O2 Saturation ABG Base Excess ABG Hemoglobin Oxyhemoglobin Sodium Chloride Carbon Dioxide BUN Creatinine Glucose POC Glucose 162 H 183 H 187 H Hemoglobin A1c Calcium Phosphorus NT-Pro-B Natriuret Pep Albumin 07/13/19 07/13/19 07/13/19 05:50 05:56 07:50 WBC 13.5 H RBC 3.37 L Hgb 9.6 L Hct 28.8 L RDW 17.4 H Plt Count Lymph % (Auto) [place] % (Auto) [place] # Seg Neutrophils % Seg Neuts % (Manual) Seg Neutrophils # Seg Neutrophils # Man Monocytes # (Manual) ABG pH ABG pO2 110.8 H ABG HCO3 27.5 H ABG O2 Saturation ABG Base Excess ABG Hemoglobin 10.0 L Oxyhemoglobin Sodium Chloride Carbon Dioxide BUN Creatinine Glucose POC Glucose 216 H Hemoglobin A1c Calcium Phosphorus NT-Pro-B Natriuret Pep Albumin 07/13/19 07/13/19 07/13/19 07:50 13:18 18:09 WBC RBC Hgb Hct RDW Plt Count Lymph % (Auto) [place] % (Auto) [place] # Seg Neutrophils % Seg Neuts % (Manual) Seg Neutrophils # Seg Neutrophils # Man Monocytes # (Manual) ABG pH ABG pO2 ABG HCO3 ABG O2 Saturation ABG Base Excess ABG Hemoglobin Oxyhemoglobin Sodium 126 L Chloride 80.8 L Carbon Dioxide 21 L BUN 105 H Creatinine 4.7 H Glucose 215 H POC Glucose 187 H 202 H Hemoglobin A1c Calcium 10.3 H Phosphorus NT-Pro-B Natriuret Pep Albumin 07/13/19 07/13/19 07/14/19 19:44 23:23 04:17 WBC RBC Hgb Hct RDW 17.5 H Plt Count Lymph % (Auto) [place] % (Auto) [place] # Seg Neutrophils % Seg Neuts % (Manual) Seg Neutrophils # Seg Neutrophils # Man Monocytes # (Manual) ABG pH ABG pO2 ABG HCO3 ABG O2 Saturation ABG Base Excess ABG Hemoglobin Oxyhemoglobin Sodium 133 L D Chloride Carbon Dioxide BUN Creatinine Glucose POC Glucose 167 H Hemoglobin A1c Calcium Phosphorus NT-Pro-B Natriuret Pep Albumin 07/14/19 07/14/19 07/14/19 04:17 05:03 12:12 WBC RBC Hgb Hct RDW Plt Count Lymph % (Auto) [place] % (Auto) [place] # Seg Neutrophils % Seg Neuts % (Manual) Seg Neutrophils # Seg Neutrophils # Man Monocytes # (Manual) ABG pH ABG pO2 ABG HCO3 ABG O2 Saturation ABG Base Excess ABG Hemoglobin Oxyhemoglobin Sodium 131 L Chloride 88.8 L Carbon Dioxide BUN 47 H Creatinine 2.6 H Glucose 131 H POC Glucose 142 H 246 H Hemoglobin A1c Calcium Phosphorus NT-Pro-B Natriuret Pep Albumin 07/14/19 07/15/19 07/15/19 18:30 00:35 04:51 WBC RBC 3.51 L Hgb 9.9 L Hct 30.0 L RDW 17.6 H Plt Count 510 H Lymph % (Auto) [place] % (Auto) [place] # Seg Neutrophils % 72.4 H Seg Neuts % (Manual) Seg Neutrophils # Seg Neutrophils # Man Monocytes # (Manual) ABG pH ABG pO2 ABG HCO3 ABG O2 Saturation ABG Base Excess ABG Hemoglobin Oxyhemoglobin Sodium Chloride Carbon Dioxide BUN Creatinine Glucose POC Glucose 114 H 164 H Hemoglobin A1c Calcium Phosphorus NT-Pro-B Natriuret Pep Albumin 07/15/19 07/15/19 07/15/19 04:51 06:21 11:55 WBC RBC Hgb Hct RDW Plt Count Lymph % (Auto) [place] % (Auto) [place] # Seg Neutrophils % Seg Neuts % (Manual) Seg Neutrophils # Seg Neutrophils # Man Monocytes # (Manual) ABG pH ABG pO2 ABG HCO3 ABG O2 Saturation ABG Base Excess ABG Hemoglobin Oxyhemoglobin Sodium 134 L Chloride 88.7 L Carbon Dioxide BUN 78 H Creatinine 4.0 H D Glucose 141 H POC Glucose 135 H 172 H Hemoglobin A1c Calcium 10.4 H Phosphorus NT-Pro-B Natriuret Pep Albumin 07/15/19 07/15/19 07/15/19 17:46 18:10 23:20 WBC RBC Hgb Hct RDW Plt Count Lymph % (Auto) [place] % (Auto) [place] # Seg Neutrophils % Seg Neuts % (Manual) Seg Neutrophils # Seg Neutrophils # Man Monocytes # (Manual) ABG pH ABG pO2 ABG HCO3 ABG O2 Saturation ABG Base Excess ABG Hemoglobin Oxyhemoglobin Sodium Chloride Carbon Dioxide BUN Creatinine Glucose POC Glucose 203 H 237 H 184 H Hemoglobin A1c Calcium Phosphorus NT-Pro-B Natriuret Pep Albumin 07/16/19 07/16/19 07/16/19 04:44 04:44 05:44 WBC RBC Hgb Hct RDW 17.5 H Plt Count 605 H Lymph % (Auto) [place] % (Auto) [place] # Seg Neutrophils % 72.6 H Seg Neuts % (Manual) Seg Neutrophils # Seg Neutrophils # Man Monocytes # (Manual) ABG pH ABG pO2 ABG HCO3 ABG O2 Saturation ABG Base Excess ABG Hemoglobin Oxyhemoglobin Sodium Chloride 93.4 L Carbon Dioxide BUN 46 H Creatinine 2.6 H Glucose 125 H POC Glucose 147 H Hemoglobin A1c Calcium 10.5 H Phosphorus NT-Pro-B Natriuret Pep Albumin 07/16/19 07/16/19 07/16/19 12:17 17:55 18:06 WBC RBC Hgb Hct RDW Plt Count Lymph % (Auto) [place] % (Auto) [place] # Seg Neutrophils % Seg Neuts % (Manual) Seg Neutrophils # Seg Neutrophils # Man Monocytes # (Manual) ABG pH ABG pO2 ABG HCO3 ABG O2 Saturation ABG Base Excess ABG Hemoglobin Oxyhemoglobin Sodium Chloride Carbon Dioxide BUN Creatinine Glucose POC Glucose 222 H 129 H 121 H Hemoglobin A1c Calcium Phosphorus NT-Pro-B Natriuret Pep Albumin 07/17/19 07/17/19 07/17/19 00:31 03:58 03:58 WBC RBC Hgb Hct RDW 17.7 H Plt Count 647 H Lymph % (Auto) [place] % (Auto) 7.7 H [place] # Seg Neutrophils % Seg Neuts % (Manual) Seg Neutrophils # Seg Neutrophils # Man Monocytes # (Manual) ABG pH ABG pO2 ABG HCO3 ABG O2 Saturation ABG Base Excess ABG Hemoglobin Oxyhemoglobin Sodium 133 L Chloride 89.4 L Carbon Dioxide BUN 81 H Creatinine 3.5 H Glucose 139 H POC Glucose 195 H Hemoglobin A1c Calcium 10.8 H Phosphorus NT-Pro-B Natriuret Pep Albumin 07/17/19 07/17/19 07/17/19 05:50 13:06 17:50 WBC RBC Hgb Hct RDW Plt Count Lymph % (Auto) [place] % (Auto) [place] # Seg Neutrophils % Seg Neuts % (Manual) Seg Neutrophils # Seg Neutrophils # Man Monocytes # (Manual) ABG pH ABG pO2 ABG HCO3 ABG O2 Saturation ABG Base Excess ABG Hemoglobin Oxyhemoglobin Sodium Chloride Carbon Dioxide BUN Creatinine Glucose POC Glucose 137 H 176 H 154 H Hemoglobin A1c Calcium Phosphorus NT-Pro-B Natriuret Pep Albumin 07/17/19 07/18/19 07/18/19 23:10 05:15 05:15 WBC RBC Hgb Hct RDW 17.4 H Plt Count 645 H Lymph % (Auto) [place] % (Auto) [place] # Seg Neutrophils % 73.0 H Seg Neuts % (Manual) Seg Neutrophils # Seg Neutrophils # Man Monocytes # (Manual) ABG pH ABG pO2 ABG HCO3 ABG O2 Saturation ABG Base Excess ABG Hemoglobin Oxyhemoglobin Sodium Chloride 95.8 L Carbon Dioxide BUN 44 H Creatinine 2.3 H Glucose 164 H POC Glucose 186 H Hemoglobin A1c Calcium 10.6 H Phosphorus NT-Pro-B Natriuret Pep Albumin 07/18/19 07/18/19 07/18/19 05:55 10:24 11:57 WBC RBC Hgb Hct RDW Plt Count Lymph % (Auto) [place] % (Auto) [place] # Seg Neutrophils % Seg Neuts % (Manual) Seg Neutrophils # Seg Neutrophils # Man Monocytes # (Manual) ABG pH ABG pO2 ABG HCO3 ABG O2 Saturation ABG Base Excess ABG Hemoglobin Oxyhemoglobin Sodium Chloride Carbon Dioxide BUN Creatinine Glucose POC Glucose 146 H 161 H 236 H Hemoglobin A1c Calcium Phosphorus NT-Pro-B Natriuret Pep Albumin 07/18/19 07/18/19 07/19/19 18:15 18:34 00:56 WBC RBC Hgb Hct RDW Plt Count Lymph % (Auto) [place] % (Auto) [place] # Seg Neutrophils % Seg Neuts % (Manual) Seg Neutrophils # Seg Neutrophils # Man Monocytes # (Manual) ABG pH ABG pO2 ABG HCO3 ABG O2 Saturation ABG Base Excess ABG Hemoglobin Oxyhemoglobin Sodium Chloride Carbon Dioxide BUN Creatinine Glucose POC Glucose 110 H 109 H 245 H Hemoglobin A1c Calcium Phosphorus NT-Pro-B Natriuret Pep Albumin 07/19/19 07/19/19 07/19/19 05:31 05:31 06:11 WBC RBC 3.48 L Hgb Hct 30.1 L RDW 17.5 H Plt Count 599 H Lymph % (Auto) [place] % (Auto) [place] # Seg Neutrophils % Seg Neuts % (Manual) 80.0 H Seg Neutrophils # Seg Neutrophils # Man Monocytes # (Manual) ABG pH ABG pO2 ABG HCO3 ABG O2 Saturation ABG Base Excess ABG Hemoglobin Oxyhemoglobin Sodium Chloride 93.6 L Carbon Dioxide BUN 81 H Creatinine 3.7 H D Glucose 234 H POC Glucose 204 H Hemoglobin A1c Calcium 10.4 H Phosphorus NT-Pro-B Natriuret Pep Albumin 07/19/19 07/19/19 07/20/19 12:19 23:46 05:01 WBC RBC 3.13 L Hgb 8.9 L Hct 26.7 L RDW 17.4 H Plt Count 552 H Lymph % (Auto) [place] % (Auto) [place] # Seg Neutrophils % Seg Neuts % (Manual) Seg Neutrophils # Seg Neutrophils # Man Monocytes # (Manual) ABG pH ABG pO2 ABG HCO3 ABG O2 Saturation ABG Base Excess ABG Hemoglobin Oxyhemoglobin Sodium Chloride Carbon Dioxide BUN Creatinine Glucose POC Glucose 187 H 143 H Hemoglobin A1c Calcium Phosphorus NT-Pro-B Natriuret Pep Albumin 07/20/19 07/20/19 07/20/19 05:01 06:42 08:18 WBC RBC Hgb Hct RDW Plt Count Lymph % (Auto) [place] % (Auto) [place] # Seg Neutrophils % Seg Neuts % (Manual) Seg Neutrophils # Seg Neutrophils # Man Monocytes # (Manual) ABG pH ABG pO2 ABG HCO3 ABG O2 Saturation ABG Base Excess ABG Hemoglobin Oxyhemoglobin Sodium 134 L Chloride 88.4 L Carbon Dioxide 21 L BUN 110 H Creatinine 5.1 H Glucose 168 H POC Glucose 167 H 147 H Hemoglobin A1c Calcium Phosphorus NT-Pro-B Natriuret Pep Albumin Allied health notes reviewed: RT
--- NOTE | 2019-07-20 09:45 | Progress Note ---
Assessment and Plan Assessment and plan: Sepsis Source is unclear. Etiology may be secondary to pneumonia versus minimal cellulitis around sacral decubitus. If WBC worsens, consider CT chest, abdomen and pelvis with IV contrast. -Continue antibiotics per infectious disease Acute hypoxic respiratory failure -Continue mechanical ventilation per pulmonary. -Continue PSVT trials daily -Etiology secondary to CHF versus pneumonia. -Await surgery to perform trach and PEG Toxic metabolic encephalopathy -Neuro checks -Continue to treat underlying causes. ESRD on HD -M/W/F -Avoid nephrotoxic agents -Renal dose all meds -Nephrology following Congestive heart Failure -Monitor input and output. -Cardiology reported no evidence of volume overload Hypertension -Continue to monitor BP -Patient is normotensive off blood pressure medications. Insulin-dependent diabetes -POC BG monitoring -SSI coverage prn Hx Seizure -Continue anticonvulsant meds -Seizure precautions. Sacral decubitus ulcer CT non contrasted without evidence of fluid collection or osteomyelitis. DVT PPX -On Heparin Disposition. Discussed with case management possibility of LTAC The high probability of a clinically significant, sudden or life threatening deterioration of the [respiratory] system(s) required my full and direct attention, intervention and personal management. The aggregate critical care time was [31] minutes. This time is in addition to time spent performing reported procedures but includes the following: [x] Data Review and interpretation [x] Patient assessment and monitoring of vital signs [x] Documentation [x] Medication orders and management History Interval history: Patient remains orally intubated Hospitalist Physical - Constitutional Vitals: Temp Pulse Resp BP Pulse Ox 98.8 F 74 14 116/46 99 07/20/19 04:00 07/20/19 08:00 07/20/19 08:00 07/20/19 08:00 07/20/19 08:00 General appearance: Present: other (intubated on the vent) - EENT Eyes: Present: PERRL, EOM intact ENT: hearing intact, clear oral mucosa, dentition normal - Neck Neck: Present: supple, normal ROM - Respiratory Respiratory effort: normal Respiratory: bilateral: CTA - Cardiovascular Rhythm: regular Heart Sounds: Present: S1 & S2. Absent: gallop, rub - Extremities Extremities: no ischemia, No edema, Full ROM - Abdominal General gastrointestinal: soft, non-tender, non-distended, normal bowel sounds - Integumentary Integumentary: Present: clear, warm, dry - Neurologic Neurologic: CNII-XII intact, moves all extremities MATT score - Matt Score Age > 65: (0) No Aspirin use within the Past 7 Days: (0) No 3 or more CAD Risk Factors: (1) Yes 2 or more Angina events in past 24 hrs: (0) No Known CAD with more than 50% Stenosis: (0) No Elevated Cardiac Markers: (1) Yes ST Deviation Greater than 0.5mm: (0) No MATT Score: 2 Results - Labs CBC & Chem 7: 07/20/19 05:01 07/20/19 05:01 Labs: Laboratory Last Values WBC 9.1 K/mm3 (4.5-11.0) 07/20/19 05:01 RBC 3.13 M/mm3 (3.65-5.03) L 07/20/19 05:01 Hgb 8.9 gm/dl (10.1-14.3) L 07/20/19 05:01 Hct 26.7 % (30.3-42.9) L 07/20/19 05:01 MCV 86 fl (79-97) 07/20/19 05:01 MCH 29 pg (28-32) 07/20/19 05:01 MCHC 33 % (30-34) 07/20/19 05:01 RDW 17.4 % (13.2-15.2) H 07/20/19 05:01 Plt Count 552 K/mm3 (140-440) H 07/20/19 05:01 Lymph % (Auto) 24.3 % (13.4-35.0) 07/20/19 05:01 [place] % (Auto) 4.6 % (0.0-7.3) 07/20/19 05:01 Eos % (Auto) 3.2 % (0.0-4.3) 07/20/19 05:01 Baso % (Auto) 0.4 % (0.0-1.8) 07/20/19 05:01 Lymph # 2.2 K/mm3 (1.2-5.4) 07/20/19 05:01 [place] # 0.4 K/mm3 (0.0-0.8) 07/20/19 05:01 Eos # 0.3 K/mm3 (0.0-0.4) 07/20/19 05:01 Baso # 0.0 K/mm3 (0.0-0.1) 07/20/19 05:01 Add Manual Diff Complete 07/19/19 05:31 Total Counted 100 07/19/19 05:31 Seg Neutrophils % 67.5 % (40.0-70.0) 07/20/19 05:01 Seg Neuts % (Manual) 80.0 % (40.0-70.0) H 07/19/19 05:31 Band Neutrophils % 1.0 % 07/19/19 05:31 Lymphocytes % (Manual) 16.0 % (13.4-35.0) 07/19/19 05:31 Reactive Lymphs % (Man) 0 % 07/19/19 05:31 Monocytes % (Manual) 3.0 % (0.0-7.3) 07/19/19 05:31 Eosinophils % (Manual) 0 % (0.0-4.3) 07/19/19 05:31 Basophils % (Manual) 0 % (0.0-1.8) 07/19/19 05:31 Metamyelocytes % 0 % 07/19/19 05:31 Myelocytes % 0 % 07/19/19 05:31 Promyelocytes % 0 % 07/19/19 05:31 Blast Cells % 0 % 07/19/19 05:31 Nucleated RBC % Not Reportable 07/19/19 05:31 Seg Neutrophils # 6.1 K/mm3 (1.8-7.7) 07/20/19 05:01 Seg Neutrophils # Man 7.4 K/mm3 (1.8-7.7) 07/19/19 05:31 Band Neutrophils # 0.1 K/mm3 07/19/19 05:31 Lymphocytes # (Manual) 1.5 K/mm3 (1.2-5.4) 07/19/19 05:31 Abs React Lymphs (Man) 0.0 K/mm3 07/19/19 05:31 Monocytes # (Manual) 0.3 K/mm3 (0.0-0.8) 07/19/19 05:31 Eosinophils # (Manual) 0.0 K/mm3 (0.0-0.4) 07/19/19 05:31 Basophils # (Manual) 0.0 K/mm3 (0.0-0.1) 07/19/19 05:31 Metamyelocytes # 0.0 K/mm3 07/19/19 05:31 Myelocytes # 0.0 K/mm3 07/19/19 05:31 Promyelocytes # 0.0 K/mm3 07/19/19 05:31 Blast Cells # 0.0 K/mm3 07/19/19 05:31 WBC Morphology Not Reportable 07/19/19 05:31 Hypersegmented Neuts Not Reportable 07/19/19 05:31 Hyposegmented Neuts Not Reportable 07/19/19 05:31 Hypogranular Neuts Not Reportable 07/19/19 05:31 Smudge Cells Not Reportable 07/19/19 05:31 Toxic Granulation Not Reportable 07/19/19 05:31 Toxic Vacuolation Not Reportable 07/19/19 05:31 Dohle Bodies Not Reportable 07/19/19 05:31 Pelger-Huet Anomaly Not Reportable 07/19/19 05:31 Andrei Rods Not Reportable 07/19/19 05:31 Platelet Estimate Consistent w auto 07/19/19 05:31 Clumped Platelets Not Reportable 07/19/19 05:31 Plt Clumps, EDTA Not Reportable 07/19/19 05:31 Large Platelets Not Reportable 07/19/19 05:31 Giant Platelets Not Reportable 07/19/19 05:31 Platelet Satelliting Not Reportable 07/19/19 05:31 Plt Morphology Comment Not Reportable 07/19/19 05:31 RBC Morphology Not Reportable 07/19/19 05:31 Dimorphic RBCs Not Reportable 07/19/19 05:31 Polychromasia Not Reportable 07/19/19 05:31 Hypochromasia Not Reportable 07/19/19 05:31 Poikilocytosis Not Reportable 07/19/19 05:31 Anisocytosis 1+ 07/19/19 05:31 Microcytosis Not Reportable 07/19/19 05:31 Macrocytosis Not Reportable 07/19/19 05:31 Spherocytes Not Reportable 07/19/19 05:31 Pappenheimer Bodies Not Reportable 07/19/19 05:31 Sickle Cells Not Reportable 07/19/19 05:31 Target Cells Not Reportable 07/19/19 05:31 Tear Drop Cells Not Reportable 07/19/19 05:31 Ovalocytes Not Reportable 07/19/19 05:31 Stomatocytes Rare 07/19/19 05:31 Helmet Cells Not Reportable 07/19/19 05:31 [place] Bodies Not Reportable 07/19/19 05:31 [place] Rings Not Reportable 07/19/19 05:31 Trem[place]ne Cells Not Reportable 07/19/19 05:31 Bite Cells Not Reportable 07/19/19 05:31 Crenated Cell Not Reportable 07/19/19 05:31 Elliptocytes Not Reportable 07/19/19 05:31 Acanthocytes (Spur) Not Reportable 07/19/19 05:31 Rouleaux Not Reportable 07/19/19 05:31 Hemoglobin C Crystals Not Reportable 07/19/19 05:31 Schistocytes Not Reportable 07/19/19 05:31 Malaria parasites Not Reportable 07/19/19 05:31 Tristen Bodies Not Reportable 07/19/19 05:31 Hem Pathologist Commnt No 07/19/19 05:31 ABG pH 7.425 pH Units (7.350-7.450) 07/13/19 05:50 ABG pCO2 42.9 mm Hg 07/13/19 05:50 ABG pO2 110.8 mm Hg (80.0-90.0) H 07/13/19 05:50 ABG HCO3 27.5 mmol/L (20.0-26.0) H 07/13/19 05:50 ABG O2 Saturation 98.0 % (95.0-99.0) 07/13/19 05:50 ABG O2 Content 13.7 (0.0-44) 07/13/19 05:50 ABG Base Excess 2.8 mmol/L (-2.0-3.0) 07/13/19 05:50 ABG Hemoglobin 10.0 gm/dl (12.0-16.0) L 07/13/19 05:50 ABG Carboxyhemoglobin 1.4 % (0.0-5.0) 07/13/19 05:50 ABG Methemoglobin 0.5 % (0.0-1.5) 07/13/19 05:50 Oxyhemoglobin 96.2 % (95.0-99.0) 07/13/19 05:50 FiO2 40 % 07/13/19 05:50 Sodium 134 mmol/L (137-145) L 07/20/19 05:01 Potassium 4.9 mmol/L (3.6-5.0) 07/20/19 05:01 Chloride 88.4 mmol/L (98-107) L 07/20/19 05:01 Carbon Dioxide 21 mmol/L (22-30) L 07/20/19 05:01 Anion Gap 30 mmol/L 07/20/19 05:01 BUN 110 mg/dL (7-17) H 07/20/19 05:01 Creatinine 5.1 mg/dL (0.7-1.2) H 07/20/19 05:01 Estimated GFR 9 ml/min 07/20/19 05:01 BUN/Creatinine Ratio 22 % 07/20/19 05:01 Glucose 168 mg/dL (65-100) H 07/20/19 05:01 POC Glucose 147 (70-105) H 07/20/19 08:18 Hemoglobin A1c 7.0 % (4-6) H 07/03/19 01:00 Lactic Acid 1.20 mmol/L (0.7-2.0) 07/03/19 04:13 Calcium 10.0 mg/dL (8.4-10.2) 07/20/19 05:01 Phosphorus 2.60 mg/dL (2.5-4.5) D 07/09/19 04:29 Total Bilirubin 0.30 mg/dL (0.1-1.2) 07/03/19 01:00 AST 22 units/L (5-40) 07/03/19 01:00 ALT 9 units/L (7-56) 07/03/19 01:00 Alkaline Phosphatase 101 units/L (35-129) 07/03/19 01:00 Ammonia 35.0 umol/L (25-60) 07/03/19 01:58 NT-Pro-B Natriuret Pep > 88360 pg/mL (0-900) H 07/03/19 01:00 Total Protein 7.0 g/dL (6.3-8.2) 07/03/19 01:00 Albumin 2.5 g/dL (3.9-5) L 07/03/19 01:00 Albumin/Globulin Ratio 0.6 % 07/03/19 01:00 TSH 2.600 mlU/mL (0.270-4.200) 07/03/19 01:00 Urine Color Yellow (Yellow) 07/03/19 Unknown Urine Turbidity Clear (Clear) 07/03/19 Unknown Urine pH 6.0 (5.0-7.0) 07/03/19 Unknown Ur Specific [place] 1.012 (1.003-1.030) 07/03/19 Unknown Urine Protein >500 mg/dL (Negative) 07/03/19 Unknown Urine Glucose (UA) >=500 mg/dL (Negative) 07/03/19 Unknown Urine Ketones Neg mg/dL (Negative) 07/03/19 Unknown Urine Blood Neg (Negative) 07/03/19 Unknown Urine Nitrite Neg (Negative) 07/03/19 Unknown Ur Reducing Substances Not Reportable 07/03/19 Unknown Urine Bilirubin Neg (Negative) 07/03/19 Unknown Urine Ictotest Not Reportable 07/03/19 Unknown Urine Urobilinogen < 2.0 mg/dL (<2.0) 07/03/19 Unknown Ur Leukocyte Esterase Neg (Negative) 07/03/19 Unknown Urine WBC (Auto) 1.0 /HPF (0.0-6.0) 07/03/19 Unknown Urine RBC (Auto) 2.0 /HPF (0.0-6.0) 07/03/19 Unknown U Epithel Cells (Auto) < 1.0 /HPF (0-13.0) 07/03/19 Unknown Urine Mucus Few /HPF 07/03/19 Unknown Random Vancomycin 18.7 ug/mL (0-40.0) 07/08/19 04:38 Influenza A (Rapid) Negative (Negative) 07/05/19 14:30 Influenza B (Rapid) Negative (Negative) 07/05/19 14:30 Active Medications - Current Medications Current Medications: Generic Name Dose Route Start Last Admin Trade Name Freq PRN Reason Stop Dose Admin Acetaminophen 650 mg 07/08/19 10:00 Tylenol AR Q4H PRN Pain, Mild (1-3) Albumin Human 25 gm 07/06/19 13:42 07/08/19 11:59 Alburx 25% (Albumin) IV 25 gm FEDE PRN Administration Hypotension Amlodipine Besylate 10 mg 07/17/19 13:00 07/19/19 09:59 Amlodipine PO 10 mg QDAY [facility] Administration Lipase/Protease/Amylase 1 each 07/05/19 16:27 Pancreaze 10,500 Unit FEEDTUBE PRN PRN For Clogged Feeding Tube Bumetanide 1 mg 07/18/19 10:00 07/19/19 09:58 Bumex PO 1 mg QDAY YANG Administration Carvedilol 25 mg 07/17/19 22:00 07/19/19 22:17 Coreg PO 25 mg BID YANG Administration Cinacalcet 30 mg 07/18/19 10:00 07/19/19 10:56 Sensipar PO 30 mg QDAY [facility] Administration Dextrose 0 ml 07/03/19 04:34 D50w (25gm) Syringe IV Q30MIN PRN Hypoglycemia Protocol Docusate Sodium 100 mg 07/15/19 10:00 07/19/19 22:17 Colace FEEDTUBE 100 mg BID YANG Administration Famotidine 20 mg 07/07/19 10:00 07/19/19 09:58 Pepcid PO 20 mg DAILY [facility] Administration Heparin Sodium (Porcine) 5,000 unit 07/03/19 10:00 07/19/19 22:16 Heparin SUB-Q 5,000 unit Q12HR YANG Administration Hydralazine HCl 50 mg 07/17/19 14:00 07/20/19 06:36 Apresoline PO 50 mg Q8HR [facility] Administration Hydrophilic Ointment 1 applic 07/03/19 00:53 Vaseline Lip Therapy TP Q2HR PRN Dry Lips Fentanyl Citrate 2,000 mcg in 100 mls @ 2.608 mls/hr 07/03/19 01:00 07/04/19 18:10 Fentanyl Drip Premix IV Infused TITR [facility] Titration Protocol 1 MCG/KG/HR Sodium Chloride 100 mls @ 999 mls/hr 07/05/19 13:41 Nacl 0.9% IV FEDE PRN Hypotension Insulin Glargine 18 units 07/10/19 13:43 07/19/19 10:00 Lantus SUB-Q 18 units DAILY YANG Administration Insulin Human Lispro 0 unit 07/03/19 06:00 07/20/19 06:38 Humalog SUB-Q Not Given Q6HR [facility] Protocol Multi-Ingred Cream/Lotion/Oil/Oint 1 applic 07/03/19 00:53 Artificial Tears Ophth Oint OU Q4HR PRN Dry Eye(s) Risperidone 0.5 mg 07/17/19 22:00 07/20/19 06:37 Risperdal Oral Liqd PO 0.5 mg BID YANG Administration Simple Syrup 15 ml 07/05/19 16:27 Simple Syrup FEEDTUBE PRN PRN Hypoglycemia Simple Syrup 30 ml 07/05/19 16:27 Simple Syrup FEEDTUBE PRN PRN Hypoglycemia Sodium Bicarbonate 325 mg 07/05/19 16:27 Sodium Bicarbonate FEEDTUBE PRN PRN For Clogged Feeding Tube Sodium Chloride 10 ml 07/03/19 10:00 07/20/19 06:38 Sodium Chloride Flush Syringe 10 Ml IV 10 ml BID YANG Administration Sodium Chloride 10 ml 07/03/19 04:34 07/05/19 10:42 Sodium Chloride Flush Syringe 10 Ml IV 10 ml PRN PRN Administration LINE FLUSH Valproic Acid 500 mg 07/17/19 22:00 07/19/19 22:17 Depakene Liq FEEDTUBE 500 mg BID YANG Administration Nutrition/Malnutrition Assess - Dietary Evaluation Nutrition/Malnutrition Findings: Nutrition Notes Start: 07/06/19 08:50 Freq: Status: Active Protocol: Document 07/14/19 11:50 MK (Rec: 07/14/19 11:59 MK [id number]) Co-Sign 07/14/19 11:50 LP Nutrition Notes Initial or Follow up Reassessment Current Diagnosis CKD (stage V CKD),Decubitus( Pressure Ulcer),Diabetes,Heart Failure,Respiratory Failure Other Pertinent Diagnosis on HD, Sacral PU, seizures, bipolar disorder, metabolic encephalopathy Current Diet Nepro 1.8 at 35 ml/hr Labs/Tests Na 131 BUN 47 Cr 2.6 Pertinent Medications Lantus Heparin Height 5 ft 2 in Weight 50.3 kg [place] Body Weight (kg) 50.00 BMI 20.2 Weight change and time frame wt gain noted with renal Weight Status Appropriate Subjective/Other Information FU for tolerance and wt. Nepro 1.8 running at 35ml/hr. Percent of energy/protein needs met: 100%/100% Burn Absent Trauma Absent GI Symptoms None Current % PO Negligible Minimum of two criteria No physical signs of malnutrition #2 Nutrition Diagnosis Increased nutrient needs ( specify in comment below) Comments: Protein Diagnosis Progress(for reassessment Continues documentation) #1 Nutrition Diagnosis Inadequate oral intake Diagnosis Progress(for reassessment Continues documentation) Is patient on ventilator? Yes Is Patient Ambulatory and/or Out of Bed No REE-([facility]-confined to bed) 4842.805 Calculation Used for Recommendations [facility] Additional Notes Protein: 58 -96g (1.2-2g/kg) Fluid: 1-1.5 L/ day Nutrition Intervention Change Diet Order: TF Nutrition Support: Nepro 1.8 at 35ml/hr Change flush to 100 ml q4h. Kcal 1,512 Protein (gm) 68 Fluid (mL) 611 Goal #1 TF tolerance Goal #2 Wound healing Anticipated Discharge Needs: unable to determine at this time Follow-Up By: 07/21/19 Additional Comments F/U for TF tolerance.
[2019-07-20] MEDS: FAMOTIDINE 20 MG TAB PO SCH (10:26)
[2019-07-20] MEDS: VALPROIC ACID 250 MG/5 ML ORAL LIQD FEEDTUBE SCH ×2 (10:26→22:19)
[2019-07-20] MEDS: INSULIN GLARGINE 100 UNITS/ML SUB-Q SCH (10:26)
[2019-07-20] MEDS: CINACALCET 30 MG TAB PO SCH (10:27)
[2019-07-20] MEDS: DOCUSATE SODIUM 100 MG/10 ML ORAL LIQD FEEDTUBE SCH (10:27)
[2019-07-20] MEDS: BUMETANIDE 1 MG TAB PO SCH (10:27)
[2019-07-20] MEDS: HEPARIN 5,000 UNIT/1 ML VIAL SUB-Q SCH ×2 (10:28→22:20)
[2019-07-20] MEDS ORDERED: SODIUM CHLORIDE*PRIMING MACHINE ONLY FOR DIALYSIS MC ONE (12:50)
[2019-07-20] MEDS: ALBUMIN HUMAN 25% (25 GM/100 ML) INJ IV PRN (14:39)
--- NOTE | 2019-07-20 16:48 | Progress Note ---
Assessment and Plan Acute hypoxic respiratory failure on mechanical ventilation Acute metabolic encephalopathy ESRD on HD HTN Sepsis Hx of seizures DM Type 2 on insulin Hypercalemia Hyponatremia Plan: - HD today for UF and clearance - Assess dialysis needs daily - Epogen dosing for anemia management as needed - Currently Intubated on Vent - as per Pulmonology - Strict I&O - Renally dose meds - This pt undergoes outpatient HD at [facility] every MWF - Renal plan d/w Dr Wray Subjective Date of service: 07/20/19 Principal diagnosis: Acute hypoxemic resp failure; AMS; Severe Sepsis; ESRD; CHF; HTN; Seizure Interval history: Pt seen in ICU, intubated, currently undergoing HD at bedside Objective - Vital Signs Vital signs: Vital Signs - 12hr 07/20/19 07/20/19 07/20/19 05:00 05:49 06:00 Temperature Pulse Rate 74 71 71 Pulse Rate [ From Monitor] Respiratory 13 14 Rate Blood Pressure 132/49 132/49 122/46 O2 Sat by Pulse 99 99 99 Oximetry O2 Sat by Pulse Oximetry [ Anterior Bilateral Throughout] 07/20/19 07/20/19 07/20/19 06:36 07:00 08:00 Temperature 99.7 F H Pulse Rate 72 71 75 Pulse Rate [ 74 From Monitor] Respiratory 13 14 Rate Blood Pressure 122/46 132/48 116/46 O2 Sat by Pulse 99 99 Oximetry O2 Sat by Pulse Oximetry [ Anterior Bilateral Throughout] 07/20/19 07/20/19 07/20/19 09:00 10:00 11:00 Temperature Pulse Rate 74 72 70 Pulse Rate [ From Monitor] Respiratory 26 H 26 H 27 H Rate Blood Pressure 124/47 124/48 128/45 O2 Sat by Pulse 99 99 99 Oximetry O2 Sat by Pulse Oximetry [ Anterior Bilateral Throughout] 07/20/19 07/20/19 07/20/19 11:50 12:00 13:00 Temperature 99.6 F Pulse Rate 73 74 75 Pulse Rate [ 74 From Monitor] Respiratory 26 H 27 H Rate Blood Pressure 128/45 130/48 138/51 O2 Sat by Pulse 99 99 99 Oximetry O2 Sat by Pulse Oximetry [ Anterior Bilateral Throughout] 07/20/19 07/20/19 07/20/19 13:45 13:50 14:00 Temperature 99.6 F Pulse Rate 74 74 75 Pulse Rate [ From Monitor] Respiratory 19 28 H Rate Blood Pressure 138/51 128/49 128/49 O2 Sat by Pulse 99 Oximetry O2 Sat by Pulse 100 Oximetry [ Anterior Bilateral Throughout] 07/20/19 07/20/19 07/20/19 14:15 14:30 14:45 Temperature Pulse Rate 72 72 70 Pulse Rate [ From Monitor] Respiratory Rate Blood Pressure 123/47 112/42 107/41 O2 Sat by Pulse Oximetry O2 Sat by Pulse Oximetry [ Anterior Bilateral Throughout] 07/20/19 07/20/19 07/20/19 14:55 15:00 15:15 Temperature Pulse Rate 77 71 69 Pulse Rate [ From Monitor] Respiratory 25 H Rate Blood Pressure 107/41 121/42 114/41 O2 Sat by Pulse 100 99 Oximetry O2 Sat by Pulse Oximetry [ Anterior Bilateral Throughout] 07/20/19 07/20/19 07/20/19 15:30 15:45 16:00 Temperature 99.2 F Pulse Rate 68 70 67 Pulse Rate [ 67 From Monitor] Respiratory 20 Rate Blood Pressure 123/45 119/44 121/45 O2 Sat by Pulse 100 Oximetry O2 Sat by Pulse Oximetry [ Anterior Bilateral Throughout] 07/20/19 07/20/19 16:15 16:30 Temperature Pulse Rate 67 68 Pulse Rate [ From Monitor] Respiratory Rate Blood Pressure 121/45 125/47 O2 Sat by Pulse Oximetry O2 Sat by Pulse Oximetry [ Anterior Bilateral Throughout] - General Appearance General appearance: intubated EENT: ATNC Neck: no JVD Respiratory: Present: Decreased Breath Sounds (intubated) Cardiology: regular, S1S2, other (ACCESS: Left AVF in use) Gastrointestinal: normoactive bowel sounds (Dobhoff tube intact) Integumentary: warm and dry Neurologic: other (intubated on ventilator) Musculoskeletal: other (no edema to BLE) Psychiatric: other (unable to assess) - Lab 07/20/19 05:01 07/20/19 05:01 Most recent lab results ABG pH 7.425 pH Units (7.350-7.450) 07/13/19 05:50 ABG pCO2 42.9 mm Hg 07/13/19 05:50 ABG pO2 110.8 mm Hg (80.0-90.0) H 07/13/19 05:50 ABG HCO3 27.5 mmol/L (20.0-26.0) H 07/13/19 05:50 ABG O2 Saturation 98.0 % (95.0-99.0) 07/13/19 05:50 Calcium 10.0 mg/dL (8.4-10.2) 07/20/19 05:01 Phosphorus 2.60 mg/dL (2.5-4.5) D 07/09/19 04:29 Medications & Allergies - Medications Allergies/Adverse Reactions: Allergies No Known Allergies Allergy (Verified 07/03/19 10:58) Home Medications: Home Medications Medication Instructions Recorded Confirmed Last Taken Type Amlodipine Besylate [Norvasc] 10 mg PO DAILY 06/24/19 07/04/19 Unknown History AtorvaSTATin [Lipitor] 20 mg PO QHS 06/24/19 07/04/19 Unknown History Bumetanide 1 mg PO DAILY 06/24/19 07/04/19 Unknown History Cinacalcet HCl 30 mg PO DAILY 06/24/19 07/04/19 Unknown History Divalproex Sodium [Depakote 500 mg PO BID 06/24/19 07/04/19 Unknown History Sprinkle] Lispro Insulin [HumaLOG] 0 - 200 unit SQ ACHS 06/24/19 07/04/19 Unknown History Vit B Comp No.3/Folic/C/Biotin 1 each PO DAILY 06/24/19 07/04/19 Unknown History [Nephro-Umu Rx Tablet] carvediloL [Coreg] 25 mg PO BID 06/24/19 07/04/19 Unknown History hydrALAZINE [Apresoline TAB] 50 mg PO Q8HR 06/24/19 07/04/19 Unknown History ALBUTEROL NEB's [Proventil 0.083% 2.5 mg IH TIDRT #30 nebu 06/30/19 07/04/19 Unknown Rx NEBS] Lactulose [Cephulac] 20 gm PO Q8HR oral.liqd 06/30/19 07/04/19 Unknown Rx Sevelamer Carbonate [Renvela] 800 mg PO TIDWM tablet 06/30/19 07/04/19 Unknown Rx risperiDONE [RisperDAL] 0.5 mg PO BID tablet 06/30/19 07/04/19 Unknown Rx Active Medications: Generic Name Dose Route Start Last Admin Trade Name Freq PRN Reason Stop Dose Admin Acetaminophen 650 mg 07/08/19 10:00 Tylenol [place] Q4H PRN Pain, Mild (1-3) Albumin Human 25 gm 07/06/19 13:42 07/20/19 14:39 Alburx 25% (Albumin) IV 25 gm FEDE PRN Administration Hypotension Amlodipine Besylate 10 mg 07/17/19 13:00 07/19/19 09:59 Amlodipine PO 10 mg QDAY YANG Administration Lipase/Protease/Amylase 1 each 07/05/19 16:[address] 10,500 Unit FEEDTUBE PRN PRN For Clogged Feeding Tube Bumetanide 1 mg 07/18/19 10:00 07/20/19 10:27 Bumex PO 1 mg QDAY YANG Administration Carvedilol 25 mg 07/17/19 22:00 07/19/19 22:17 Coreg PO 25 mg BID YNAG Administration Cinacalcet 30 mg 07/18/19 10:00 07/20/19 10:27 Sensipar PO 30 mg QDAY YANG Administration Dextrose 0 ml 07/03/19 04:34 D50w (25gm) Syringe IV Q30MIN PRN Hypoglycemia Protocol Docusate Sodium 100 mg 07/15/19 10:00 07/20/19 10:27 Colace FEEDTUBE 100 mg BID YANG Administration Famotidine 20 mg 07/07/19 10:00 07/20/19 10:26 Pepcid PO 20 mg DAILY YANG Administration Heparin Sodium (Porcine) 5,000 unit 07/03/19 10:00 07/20/19 10:28 Heparin SUB-Q 5,000 unit Q12HR YANG Administration Hydralazine HCl 50 mg 07/17/19 14:00 07/20/19 06:36 Apresoline PO 50 mg Q8HR YANG Administration Hydrophilic Ointment 1 applic 07/03/19 00:53 Vaseline Lip Therapy TP Q2HR PRN Dry Lips Fentanyl Citrate 2,000 mcg in 100 mls @ 2.608 mls/hr 07/03/19 01:00 07/04/19 18:10 Fentanyl Drip Premix IV Infused TITR YANG Titration Protocol 1 MCG/KG/HR Sodium Chloride 100 mls @ 999 mls/hr 07/05/19 13:41 Nacl 0.9% IV FEDE PRN Hypotension Insulin Glargine 18 units 07/10/19 13:43 07/20/19 10:26 Lantus SUB-Q 18 units DAILY YANG Administration Insulin Human Lispro 0 unit 07/03/19 06:00 07/20/19 12:41 Humalog SUB-Q 4 unit Q6HR YANG Administration Protocol Multi-Ingred Cream/Lotion/Oil/Oint 1 applic 07/03/19 00:53 Artificial Tears Ophth Oint OU Q4HR PRN Dry Eye(s) Risperidone 0.5 mg 07/20/19 22:00 Risperdal PO BID YANG Simple Syrup 15 ml 07/05/19 16:27 Simple Syrup FEEDTUBE PRN PRN Hypoglycemia Simple Syrup 30 ml 07/05/19 16:27 Simple Syrup FEEDTUBE PRN PRN Hypoglycemia Sodium Bicarbonate 325 mg 07/05/19 16:27 Sodium Bicarbonate FEEDTUBE PRN PRN For Clogged Feeding Tube Sodium Chloride 10 ml 07/03/19 10:00 07/20/19 10:29 Sodium Chloride Flush Syringe 10 Ml IV 10 ml BID YANG Administration Sodium Chloride 10 ml 07/03/19 04:34 07/05/19 10:42 Sodium Chloride Flush Syringe 10 Ml IV 10 ml PRN PRN Administration LINE FLUSH Valproic Acid 500 mg 07/17/19 22:00 07/20/19 10:26 Depakene Liq FEEDTUBE 500 mg BID YANG Administration
[2019-07-20] MEDS: amLODIPine 10 MG TAB PO SCH (17:04)
[2019-07-20] MEDS: carvediloL 25 MG TAB PO SCH ×2 (17:05→22:20)
[2019-07-20] MEDS: risperiDONE 0.25 MG TAB PO SCH (22:20)
[2019-07-21] MEDS: DOCUSATE SODIUM 100 MG/10 ML ORAL LIQD FEEDTUBE SCH ×3 (03:51→21:24)
[2019-07-21] MEDS: INSULIN LISPRO 100 UNIT/ML SUB-Q SCH ×3 (05:50→18:58)
[2019-07-21] MEDS: hydrALAZINE 25 MG TAB PO SCH ×3 (05:56→21:23)
--- NOTE | 2019-07-21 09:34 | Progress Note ---
Assessment and Plan Assessment and plan: Sepsis Source is unclear. Etiology may be secondary to pneumonia versus minimal cellulitis around sacral decubitus. Complted antibiotics Acute hypoxic respiratory failure -Continue mechanical ventilation per pulmonary. -Continue PSVT trials daily -Etiology secondary to CHF versus pneumonia. -For Trach and PEG to be done by Surg Toxic metabolic encephalopathy -Neuro checks -Continue to treat underlying causes. ESRD on HD -M/W/F -Avoid nephrotoxic agents -Renal dose all meds -Nephrology following Chronic Congestive heart Failure -Monitor input and output. -Cardiology reported no evidence of volume overload Hypertension -Continue to monitor BP -Patient is normotensive off blood pressure medications. Insulin-dependent diabetes -POC BG monitoring -SSI coverage prn Hx Seizure -Continue anticonvulsant meds -Seizure precautions. Sacral decubitus ulcer CT non contrasted without evidence of fluid collection or osteomyelitis. DVT PPX -On Heparin Disposition. Discussed with case management possibility of LTAC The high probability of a clinically significant, sudden or life threatening deterioration of the [respiratory] system(s) required my full and direct attention, intervention and personal management. The aggregate critical care time was [33] minutes. This time is in addition to time spent performing reported procedures but includes the following: [x] Data Review and interpretation [x] Patient assessment and monitoring of vital signs [x] Documentation [x] Medication orders and management History Interval history: Patient still intubated, Hospitalist Physical - Physical exam Narrative exam: GEN: Not in acute distress, intubated, on vent HEENT: Normocephalic, atraumatic, Neck: supple, No JVD Lungs: Bilateral rhonchi, heart;S1 and S2 reg, no murmurs Abd:soft, non tender, non distended, normal bowel sounds Ext: No edema, no clubbing, no cyanosis Neuro: Intubated, sedated - Constitutional Vitals: Temp Pulse Resp BP Pulse Ox 99.8 F H 80 17 136/53 99 07/21/19 08:00 07/21/19 08:14 07/21/19 08:14 07/21/19 08:14 07/21/19 08:14 General appearance: Present: other (intubated on the vent) MATT score - Matt Score Age > 65: (0) No Aspirin use within the Past 7 Days: (0) No 3 or more CAD Risk Factors: (1) Yes 2 or more Angina events in past 24 hrs: (0) No Known CAD with more than 50% Stenosis: (0) No Elevated Cardiac Markers: (1) Yes ST Deviation Greater than 0.5mm: (0) No MATT Score: 2 Results - Labs CBC & Chem 7: 07/20/19 05:01 07/20/19 05:01 Labs: Laboratory Last Values WBC 9.1 K/mm3 (4.5-11.0) 07/20/19 05:01 RBC 3.13 M/mm3 (3.65-5.03) L 07/20/19 05:01 Hgb 8.9 gm/dl (10.1-14.3) L 07/20/19 05:01 Hct 26.7 % (30.3-42.9) L 07/20/19 05:01 MCV 86 fl (79-97) 07/20/19 05:01 MCH 29 pg (28-32) 07/20/19 05:01 MCHC 33 % (30-34) 07/20/19 05:01 RDW 17.4 % (13.2-15.2) H 07/20/19 05:01 Plt Count 552 K/mm3 (140-440) H 07/20/19 05:01 Lymph % (Auto) 24.3 % (13.4-35.0) 07/20/19 05:01 [place] % (Auto) 4.6 % (0.0-7.3) 07/20/19 05:01 Eos % (Auto) 3.2 % (0.0-4.3) 07/20/19 05:01 Baso % (Auto) 0.4 % (0.0-1.8) 07/20/19 05:01 Lymph # 2.2 K/mm3 (1.2-5.4) 07/20/19 05:01 [place] # 0.4 K/mm3 (0.0-0.8) 07/20/19 05:01 Eos # 0.3 K/mm3 (0.0-0.4) 07/20/19 05:01 Baso # 0.0 K/mm3 (0.0-0.1) 07/20/19 05:01 Add Manual Diff Complete 07/19/19 05:31 Total Counted 100 02/09/20 05:31 Seg Neutrophils % 67.5 % (40.0-70.0) 07/20/19 05:01 Seg Neuts % (Manual) 80.0 % (40.0-70.0) H 07/19/19 05:31 Band Neutrophils % 1.0 % 07/19/19 05:31 Lymphocytes % (Manual) 16.0 % (13.4-35.0) 07/19/19 05:31 Reactive Lymphs % (Man) 0 % 07/19/19 05:31 Monocytes % (Manual) 3.0 % (0.0-7.3) 07/19/19 05:31 Eosinophils % (Manual) 0 % (0.0-4.3) 07/19/19 05:31 Basophils % (Manual) 0 % (0.0-1.8) 07/19/19 05:31 Metamyelocytes % 0 % 07/19/19 05:31 Myelocytes % 0 % 07/19/19 05:31 Promyelocytes % 0 % 07/19/19 05:31 Blast Cells % 0 % 07/19/19 05:31 Nucleated RBC % Not Reportable 07/19/19 05:31 Seg Neutrophils # 6.1 K/mm3 (1.8-7.7) 07/20/19 05:01 Seg Neutrophils # Man 7.4 K/mm3 (1.8-7.7) 07/19/19 05:31 Band Neutrophils # 0.1 K/mm3 07/19/19 05:31 Lymphocytes # (Manual) 1.5 K/mm3 (1.2-5.4) 07/19/19 05:31 Abs React Lymphs (Man) 0.0 K/mm3 07/19/19 05:31 Monocytes # (Manual) 0.3 K/mm3 (0.0-0.8) 07/19/19 05:31 Eosinophils # (Manual) 0.0 K/mm3 (0.0-0.4) 07/19/19 05:31 Basophils # (Manual) 0.0 K/mm3 (0.0-0.1) 07/19/19 05:31 Metamyelocytes # 0.0 K/mm3 07/19/19 05:31 Myelocytes # 0.0 K/mm3 07/19/19 05:31 Promyelocytes # 0.0 K/mm3 07/19/19 05:31 Blast Cells # 0.0 K/mm3 07/19/19 05:31 WBC Morphology Not Reportable 07/19/19 05:31 Hypersegmented Neuts Not Reportable 07/19/19 05:31 Hyposegmented Neuts Not Reportable 07/19/19 05:31 Hypogranular Neuts Not Reportable 07/19/19 05:31 Smudge Cells Not Reportable 07/19/19 05:31 Toxic Granulation Not Reportable 07/19/19 05:31 Toxic Vacuolation Not Reportable 07/19/19 05:31 Dohle Bodies Not Reportable 07/19/19 05:31 Pelger-Huet Anomaly Not Reportable 07/19/19 05:31 Andrei Rods Not Reportable 07/19/19 05:31 Platelet Estimate Consistent w auto 07/19/19 05:31 Clumped Platelets Not Reportable 07/19/19 05:31 Plt Clumps, EDTA Not Reportable 07/19/19 05:31 Large Platelets Not Reportable 07/19/19 05:31 Giant Platelets Not Reportable 07/19/19 05:31 Platelet Satelliting Not Reportable 07/19/19 05:31 Plt Morphology Comment Not Reportable 07/19/19 05:31 RBC Morphology Not Reportable 07/19/19 05:31 Dimorphic RBCs Not Reportable 07/19/19 05:31 Polychromasia Not Reportable 07/19/19 05:31 Hypochromasia Not Reportable 07/19/19 05:31 Poikilocytosis Not Reportable 07/19/19 05:31 Anisocytosis 1+ 07/19/19 05:31 Microcytosis Not Reportable 07/19/19 05:31 Macrocytosis Not Reportable 07/19/19 05:31 Spherocytes Not Reportable 07/19/19 05:31 Pappenheimer Bodies Not Reportable 07/19/19 05:31 Sickle Cells Not Reportable 07/19/19 05:31 Target Cells Not Reportable 07/19/19 05:31 Tear Drop Cells Not Reportable 07/19/19 05:31 Ovalocytes Not Reportable 07/19/19 05:31 Stomatocytes Rare 07/19/19 05:31 Helmet Cells Not Reportable 07/19/19 05:31 [place] Bodies Not Reportable 07/19/19 05:31 [place] Rings Not Reportable 07/19/19 05:31 [place] Cells Not Reportable 07/19/19 05:31 Bite Cells Not Reportable 07/19/19 05:31 Crenated Cell Not Reportable 07/19/19 05:31 Elliptocytes Not Reportable 07/19/19 05:31 Acanthocytes (Spur) Not Reportable 07/19/19 05:31 Rouleaux Not Reportable 07/19/19 05:31 Hemoglobin C Crystals Not Reportable 07/19/19 05:31 Schistocytes Not Reportable 07/19/19 05:31 Malaria parasites Not Reportable 07/19/19 05:31 Tristen Bodies Not Reportable 07/19/19 05:31 Hem Pathologist Commnt No 07/19/19 05:31 ABG pH 7.425 pH Units (7.350-7.450) 07/13/19 05:50 ABG pCO2 42.9 mm Hg 07/13/19 05:50 ABG pO2 110.8 mm Hg (80.0-90.0) H 07/13/19 05:50 ABG HCO3 27.5 mmol/L (20.0-26.0) H 07/13/19 05:50 ABG O2 Saturation 98.0 % (95.0-99.0) 07/13/19 05:50 ABG O2 Content 13.7 (0.0-44) 07/13/19 05:50 ABG Base Excess 2.8 mmol/L (-2.0-3.0) 07/13/19 05:50 ABG Hemoglobin 10.0 gm/dl (12.0-16.0) L 07/13/19 05:50 ABG Carboxyhemoglobin 1.4 % (0.0-5.0) 07/13/19 05:50 ABG Methemoglobin 0.5 % (0.0-1.5) 07/13/19 05:50 Oxyhemoglobin 96.2 % (95.0-99.0) 07/13/19 05:50 FiO2 40 % 07/13/19 05:50 Sodium 134 mmol/L (137-145) L 07/20/19 05:01 Potassium 4.9 mmol/L (3.6-5.0) 07/20/19 05:01 Chloride 88.4 mmol/L (98-107) L 07/20/19 05:01 Carbon Dioxide 21 mmol/L (22-30) L 07/20/19 05:01 Anion Gap 30 mmol/L 07/20/19 05:01 BUN 110 mg/dL (7-17) H 07/20/19 05:01 Creatinine 5.1 mg/dL (0.7-1.2) H 07/20/19 05:01 Estimated GFR 9 ml/min 07/20/19 05:01 BUN/Creatinine Ratio 22 % 07/20/19 05:01 Glucose 168 mg/dL (65-100) H 07/20/19 05:01 POC Glucose 147 (70-105) H 07/21/19 05:56 Hemoglobin A1c 7.0 % (4-6) H 07/03/19 01:00 Lactic Acid 1.20 mmol/L (0.7-2.0) 07/03/19 04:13 Calcium 10.0 mg/dL (8.4-10.2) 07/20/19 05:01 Phosphorus 2.60 mg/dL (2.5-4.5) D 07/09/19 04:29 Total Bilirubin 0.30 mg/dL (0.1-1.2) 07/03/19 01:00 AST 22 units/L (5-40) 07/03/19 01:00 ALT 9 units/L (7-56) 07/03/19 01:00 Alkaline Phosphatase 101 units/L (35-129) 07/03/19 01:00 Ammonia 35.0 umol/L (25-60) 07/03/19 01:58 NT-Pro-B Natriuret Pep > 78698 pg/mL (0-900) H 07/03/19 01:00 Total Protein 7.0 g/dL (6.3-8.2) 07/03/19 01:00 Albumin 2.5 g/dL (3.9-5) L 07/03/19 01:00 Albumin/Globulin Ratio 0.6 % 07/03/19 01:00 TSH 2.600 mlU/mL (0.270-4.200) 07/03/19 01:00 Urine Color Yellow (Yellow) 07/03/19 Unknown Urine Turbidity Clear (Clear) 07/03/19 Unknown Urine pH 6.0 (5.0-7.0) 07/03/19 Unknown Ur Specific [place] 1.012 (1.003-1.030) 07/03/19 Unknown Urine Protein >500 mg/dL (Negative) 07/03/19 Unknown Urine Glucose (UA) >=500 mg/dL (Negative) 07/03/19 Unknown Urine Ketones Neg mg/dL (Negative) 07/03/19 Unknown Urine Blood Neg (Negative) 07/03/19 Unknown Urine Nitrite Neg (Negative) 07/03/19 Unknown Ur Reducing Substances Not Reportable 07/03/19 Unknown Urine Bilirubin Neg (Negative) 07/03/19 Unknown Urine Ictotest Not Reportable 07/03/19 Unknown Urine Urobilinogen < 2.0 mg/dL (<2.0) 07/03/19 Unknown Ur Leukocyte Esterase Neg (Negative) 07/03/19 Unknown Urine WBC (Auto) 1.0 /HPF (0.0-6.0) 07/03/19 Unknown Urine RBC (Auto) 2.0 /HPF (0.0-6.0) 07/03/19 Unknown U Epithel Cells (Auto) < 1.0 /HPF (0-13.0) 07/03/19 Unknown Urine Mucus Few /HPF 07/03/19 Unknown Random Vancomycin 18.7 ug/mL (0-40.0) 07/08/19 04:38 Influenza A (Rapid) Negative (Negative) 07/05/19 14:30 Influenza B (Rapid) Negative (Negative) 07/05/19 14:30 Active Medications - Current Medications Current Medications: Generic Name Dose Route Start Last Admin Trade Name Freq PRN Reason Stop Dose Admin Acetaminophen 650 mg 07/08/19 10:00 Tylenol [place] Q4H PRN Pain, Mild (1-3) Albumin Human 25 gm 07/06/19 13:42 07/20/19 14:39 Alburx 25% (Albumin) IV 25 gm FEDE PRN Administration Hypotension Amlodipine Besylate 10 mg 07/17/19 13:00 07/20/19 17:04 Amlodipine PO Not Given QDAY YANG Lipase/Protease/Amylase 1 each 07/05/19 16:[address] 10,500 Unit FEEDTUBE PRN PRN For Clogged Feeding Tube Carvedilol 25 mg 07/17/19 22:00 07/20/19 22:20 Coreg PO 25 mg BID YANG Administration Cinacalcet 30 mg 07/18/19 10:00 07/20/19 10:27 Sensipar PO 30 mg QDAY YANG Administration Dextrose 0 ml 07/03/19 04:34 D50w (25gm) Syringe IV Q30MIN PRN Hypoglycemia Protocol Docusate Sodium 100 mg 07/15/19 10:00 07/21/19 03:51 Colace FEEDTUBE 100 mg BID YANG Administration Famotidine 20 mg 07/07/19 10:00 07/20/19 10:26 Pepcid PO 20 mg DAILY YANG Administration Heparin Sodium (Porcine) 5,000 unit 07/03/19 10:00 07/20/19 22:20 Heparin SUB-Q 5,000 unit Q12HR YANG Administration Hydralazine HCl 50 mg 07/17/19 14:00 07/21/19 05:56 Apresoline PO 50 mg Q8HR YANG Administration Hydrophilic Ointment 1 applic 07/03/19 00:53 Vaseline Lip Therapy TP Q2HR PRN Dry Lips Fentanyl Citrate 2,000 mcg in 100 mls @ 2.608 mls/hr 07/03/19 01:00 07/04/19 18:10 Fentanyl Drip Premix IV Infused TITR [facility] Titration Protocol 1 MCG/KG/HR Sodium Chloride 100 mls @ 999 mls/hr 07/05/19 13:41 Nacl 0.9% IV FEDE PRN Hypotension Insulin Glargine 18 units 07/10/19 13:43 07/20/19 10:26 Lantus SUB-Q 18 units DAILY YANG Administration Insulin Human Lispro 0 unit 07/03/19 06:00 07/21/19 05:50 Humalog SUB-Q Not Given Q6HR YANG Protocol Multi-Ingred Cream/Lotion/Oil/Oint 1 applic 07/03/19 00:53 Artificial Tears Ophth Oint OU Q4HR PRN Dry Eye(s) Risperidone 0.5 mg 07/20/19 22:00 07/20/19 22:20 Risperdal PO 0.5 mg BID YANG Administration Simple Syrup 15 ml 07/05/19 16:27 Simple Syrup FEEDTUBE PRN PRN Hypoglycemia Simple Syrup 30 ml 07/05/19 16:27 Simple Syrup FEEDTUBE PRN PRN Hypoglycemia Sodium Bicarbonate 325 mg 07/05/19 16:27 Sodium Bicarbonate FEEDTUBE PRN PRN For Clogged Feeding Tube Sodium Chloride 10 ml 07/03/19 10:00 07/20/19 22:20 Sodium Chloride Flush Syringe 10 Ml IV 10 ml BID YANG Administration Sodium Chloride 10 ml 07/03/19 04:34 07/05/19 10:42 Sodium Chloride Flush Syringe 10 Ml IV 10 ml PRN PRN Administration LINE FLUSH Valproic Acid 500 mg 07/17/19 22:00 07/20/19 22:19 Depakene Liq FEEDTUBE 500 mg BID YANG Administration Nutrition/Malnutrition Assess - Dietary Evaluation Nutrition/Malnutrition Findings: Nutrition Notes Start: 07/06/19 08:50 Freq: Status: Active Protocol: Document 07/14/19 11:50 MK (Rec: 07/14/19 11:59 MK [id number]) Co-Sign 07/14/19 11:50 LP Nutrition Notes Initial or Follow up Reassessment Current Diagnosis CKD (stage V CKD),Decubitus( Pressure Ulcer),Diabetes,Heart Failure,Respiratory Failure Other Pertinent Diagnosis on HD, Sacral PU, seizures, bipolar disorder, metabolic encephalopathy Current Diet Nepro 1.8 at 35 ml/hr Labs/Tests Na 131 BUN 47 Cr 2.6 Pertinent Medications Lantus Heparin Height 5 ft 2 in Weight 50.3 kg [place] Body Weight (kg) 50.00 BMI 20.2 Weight change and time frame wt gain noted with renal Weight Status Appropriate Subjective/Other Information FU for tolerance and wt. Nepro 1.8 running at 35ml/hr. Percent of energy/protein needs met: 100%/100% Burn Absent Trauma Absent GI Symptoms None Current % PO Negligible Minimum of two criteria No physical signs of malnutrition #2 Nutrition Diagnosis Increased nutrient needs ( specify in comment below) Comments: Protein Diagnosis Progress(for reassessment Continues documentation) #1 Nutrition Diagnosis Inadequate oral intake Diagnosis Progress(for reassessment Continues documentation) Is patient on ventilator? Yes Is Patient Ambulatory and/or Out of Bed No REE-([facility]-confined to bed) 9040.206 Calculation Used for Recommendations [facility] Additional Notes Protein: 58 -96g (1.2-2g/kg) Fluid: 1-1.5 L/ day Nutrition Intervention Change Diet Order: TF Nutrition Support: Nepro 1.8 at 35ml/hr Change flush to 100 ml q4h. Kcal 1,512 Protein (gm) 68 Fluid (mL) 611 Goal #1 TF tolerance Goal #2 Wound healing Anticipated Discharge Needs: unable to determine at this time Follow-Up By: 07/21/19 Additional Comments F/U for TF tolerance.
[2019-07-21] MEDS: amLODIPine 10 MG TAB PO SCH (10:26)
[2019-07-21] MEDS: carvediloL 25 MG TAB PO SCH ×2 (10:26→21:23)
[2019-07-21] MEDS: risperiDONE 0.25 MG TAB PO SCH ×2 (10:27→21:23)
[2019-07-21] MEDS: FAMOTIDINE 20 MG TAB PO SCH (10:27)
[2019-07-21] MEDS: HEPARIN 5,000 UNIT/1 ML VIAL SUB-Q SCH ×2 (10:28→21:23)
[2019-07-21] MEDS: VALPROIC ACID 250 MG/5 ML ORAL LIQD FEEDTUBE SCH ×2 (10:28→21:23)
[2019-07-21] MEDS: CINACALCET 30 MG TAB PO SCH (10:28)
[2019-07-21] MEDS: INSULIN GLARGINE 100 UNITS/ML SUB-Q SCH (10:28)
--- NOTE | 2019-07-21 13:57 | Progress Note ---
Assessment and Plan Acute hypoxic respiratory failure on mechanical ventilation Acute metabolic encephalopathy ESRD on HD HTN Sepsis Hx of seizures DM Type 2 on insulin Hypercalemia Hyponatremia Plan: - HD tomorrow for clearance and volume removal - Assess dialysis needs daily - Epogen dosing for anemia management as needed - Currently Intubated on Vent - as per Pulmonology - Strict I&O - Renally dose meds - This pt undergoes outpatient HD at [facility] every MWF Keith Monroy MD [phone] Subjective Date of service: 07/21/19 Principal diagnosis: Acute hypoxemic resp failure; AMS; Severe Sepsis; ESRD; CHF; HTN; Seizure Interval history: intubated, no family at bedside Objective - Vital Signs Vital signs: Vital Signs - 12hr 07/21/19 07/21/19 07/21/19 02:00 03:00 03:14 Temperature Pulse Rate 75 79 Pulse Rate [ 68 From Monitor] Respiratory 13 13 20 Rate Respiratory 18 Rate [Bilateral Leg] Blood Pressure 131/47 125/47 125/47 O2 Sat by Pulse 99 99 100 Oximetry 07/21/19 07/21/19 07/21/19 03:54 04:00 04:57 Temperature 98.1 F Pulse Rate 80 80 Pulse Rate [ From Monitor] Respiratory 13 Rate Respiratory Rate [Bilateral Leg] Blood Pressure 124/45 121/44 O2 Sat by Pulse 99 99 Oximetry 07/21/19 07/21/19 07/21/19 05:00 05:15 05:56 Temperature Pulse Rate 80 80 79 Pulse Rate [ 78 From Monitor] Respiratory 12 20 Rate Respiratory Rate [Bilateral Leg] Blood Pressure 124/46 131/72 O2 Sat by Pulse 99 100 Oximetry 07/21/19 07/21/19 07/21/19 06:00 07:00 08:00 Temperature 99.8 F H Pulse Rate 80 82 81 Pulse Rate [ 81 From Monitor] Respiratory 13 13 12 Rate Respiratory Rate [Bilateral Leg] Blood Pressure 136/53 139/53 145/55 O2 Sat by Pulse 99 99 99 Oximetry 07/21/19 07/21/19 07/21/19 08:14 09:00 10:00 Temperature Pulse Rate 80 80 79 Pulse Rate [ From Monitor] Respiratory 17 11 L 10 L Rate Respiratory Rate [Bilateral Leg] Blood Pressure 136/53 138/62 152/61 O2 Sat by Pulse 99 99 99 Oximetry 07/21/19 07/21/1907/21/20 10:26 12:10 13:33 Temperature Pulse Rate 81 77 77 Pulse Rate [ From Monitor] Respiratory 10 L Rate Respiratory Rate [Bilateral Leg] Blood Pressure 152/61 130/58 130/58 O2 Sat by Pulse 99 Oximetry - General Appearance General appearance: well-developed, well-nourished, intubated EENT: ATNC, PERRL, mucous membranes dry Neck: no JVD Respiratory: Present: Clear to Ascultation Cardiology: regular, S1S2 Gastrointestinal: normoactive bowel sounds, no tenderness, no distended Integumentary: no rash, warm and dry Neurologic: other Musculoskeletal: other (no edema in BLE) Psychiatric: other (intubated) - Lab 07/20/19 05:01 07/20/19 05:01 Most recent lab results ABG pH 7.425 pH Units (7.350-7.450) 07/13/19 05:50 ABG pCO2 42.9 mm Hg 07/13/19 05:50 ABG pO2 110.8 mm Hg (80.0-90.0) H 07/13/19 05:50 ABG HCO3 27.5 mmol/L (20.0-26.0) H 07/13/19 05:50 ABG O2 Saturation 98.0 % (95.0-99.0) 07/13/19 05:50 Calcium 10.0 mg/dL (8.4-10.2) 07/20/19 05:01 Phosphorus 2.60 mg/dL (2.5-4.5) D 07/09/19 04:29 Medications & Allergies - Medications Allergies/Adverse Reactions: Allergies No Known Allergies Allergy (Verified 07/03/19 10:58) Home Medications: Home Medications Medication Instructions Recorded Confirmed Last Taken Type Amlodipine Besylate [Norvasc] 10 mg PO DAILY 06/24/19 07/04/19 Unknown History AtorvaSTATin [Lipitor] 20 mg PO QHS 06/24/19 07/04/19 Unknown History Bumetanide 1 mg PO DAILY 06/24/19 07/04/19 Unknown History Cinacalcet HCl 30 mg PO DAILY 06/24/19 07/04/19 Unknown History Divalproex Sodium [Depakote 500 mg PO BID 06/24/19 07/04/19 Unknown History Sprinkle] Lispro Insulin [HumaLOG] 0 - 200 unit SQ ACHS 06/24/19 07/04/19 Unknown History Vit B Comp No.3/Folic/C/Biotin 1 each PO DAILY 06/24/19 07/04/19 Unknown History [Nephro-Umu Rx Tablet] carvediloL [Coreg] 25 mg PO BID 06/24/19 07/04/19 Unknown History hydrALAZINE [Apresoline TAB] 50 mg PO Q8HR 06/24/19 07/04/19 Unknown History ALBUTEROL NEB's [Proventil 0.083% 2.5 mg IH TIDRT #30 nebu 06/30/19 07/04/19 Unknown Rx NEBS] Lactulose [Cephulac] 20 gm PO Q8HR oral.liqd 06/30/19 07/04/19 Unknown Rx Sevelamer Carbonate [Renvela] 800 mg PO TIDWM tablet 06/30/19 07/04/19 Unknown Rx risperiDONE [RisperDAL] 0.5 mg PO BID tablet 06/30/19 07/04/19 Unknown Rx Active Medications: Generic Name Dose Route Start Last Admin Trade Name Freq PRN Reason Stop Dose Admin Acetaminophen 650 mg 07/08/19 10:00 Tylenol [place] Q4H PRN Pain, Mild (1-3) Albumin Human 25 gm 07/06/19 13:42 07/20/19 14:39 Alburx 25% (Albumin) IV 25 gm FEDE PRN Administration Hypotension Amlodipine Besylate 10 mg 07/17/19 13:00 07/21/19 10:26 Amlodipine PO 10 mg QDAY YANG Administration Lipase/Protease/Amylase 1 each 07/05/19 16:[address] 10,500 Unit FEEDTUBE PRN PRN For Clogged Feeding Tube Carvedilol 25 mg 07/17/19 22:00 07/21/19 10:26 Coreg PO 25 mg BID YANG Administration Cinacalcet 30 mg 07/18/19 10:00 07/21/19 10:28 Sensipar PO 30 mg QDAY YANG Administration Dextrose 0 ml 07/03/19 04:34 D50w (25gm) Syringe IV Q30MIN PRN Hypoglycemia Protocol Docusate Sodium 100 mg 07/15/19 10:00 07/21/19 10:29 Colace FEEDTUBE Not Given BID YANG Famotidine 20 mg 07/07/19 10:00 07/21/19 10:27 Pepcid PO 20 mg DAILY YANG Administration Heparin Sodium (Porcine) 5,000 unit 07/03/19 10:00 07/21/19 10:28 Heparin SUB-Q 5,000 unit Q12HR AYNG Administration Hydralazine HCl 50 mg 07/17/19 14:00 07/21/19 13:33 Apresoline PO 50 mg Q8HR YANG Administration Hydrophilic Ointment 1 applic 07/03/19 00:53 Vaseline Lip Therapy TP Q2HR PRN Dry Lips Fentanyl Citrate 2,000 mcg in 100 mls @ 2.608 mls/hr 07/03/19 01:00 07/04/19 18:10 Fentanyl Drip Premix IV Infused TITR [facility] Titration Protocol 1 MCG/KG/HR Sodium Chloride 100 mls @ 999 mls/hr 07/05/19 13:41 Nacl 0.9% IV FEDE PRN Hypotension Insulin Glargine 18 units 07/10/19 13:43 07/21/19 10:28 Lantus SUB-Q 18 units DAILY YANG Administration Insulin Human Lispro 0 unit 07/03/19 06:00 07/21/19 13:32 Humalog SUB-Q 6 unit Q6HR YANG Administration Protocol Multi-Ingred Cream/Lotion/Oil/Oint 1 applic 07/03/19 00:53 Artificial Tears Ophth Oint OU Q4HR PRN Dry Eye(s) Risperidone 0.5 mg 07/20/19 22:00 07/21/19 10:27 Risperdal PO 0.5 mg BID YANG Administration Simple Syrup 15 ml 07/05/19 16:27 Simple Syrup FEEDTUBE PRN PRN Hypoglycemia Simple Syrup 30 ml 07/05/19 16:27 Simple Syrup FEEDTUBE PRN PRN Hypoglycemia Sodium Bicarbonate 325 mg 07/05/19 16:27 Sodium Bicarbonate FEEDTUBE PRN PRN For Clogged Feeding Tube Sodium Chloride 10 ml 07/03/19 10:00 07/21/19 10:29 Sodium Chloride Flush Syringe 10 Ml IV 10 ml BID YANG Administration Sodium Chloride 10 ml 07/03/19 04:34 07/05/19 10:42 Sodium Chloride Flush Syringe 10 Ml IV 10 ml PRN PRN Administration LINE FLUSH Valproic Acid 500 mg 07/17/19 22:00 07/21/19 10:28 Depakene Liq FEEDTUBE 500 mg BID YANG Administration
--- NOTE | 2019-07-21 16:41 | Event Note ---
Date: 07/21/19 Spoke with patient's son in law Monica Mclaughlin again regarding trach/PEG. He asked that I speak with patient's daughter for consent. Discussed the patient's condition with her daughter Aurora Mclaughlin and tracheostomy and PEG tube procedures. We discussed the indication for the procedures in great detail. I explained that the reason to perform the procedures is to help wean off the ventilator. She understands. She will be here tomorrow to give consent. Per Dr. Beatty patient failed last SBT. If patient cannot wean safely in the next 24-48 hrs, will schedule trach/PEG.
--- NOTE | 2019-07-21 17:43 | Progress Note ---
Assessment and Plan Acute hypoxemic respiratory failure on MVS Acute toxic metabolic encephalopathy Severe Sepsis-resolved ESRD on HD Congestive heart Failure Accelerated Hypertension H/O Seizure Slow but consistent improvement in her mental status Continue daily PSV as tolerated, Will continue to titrate pressure support to generate tidal volumes >300. Needs to tolerate minimal PS to facilitate liberation from MVS. Intermittent IV analgesia for now, avoid continuous infusions Continue agitation management Continue all supportive care Reasonable to consider trach and PEG if she is not liberated from MVS in the next few days. PT/OT Discussed with general surgery service - VAP bundle addressed (aspiration precautions, HOB>40 degrees) -Lung protective strategies -wean FiO2 for O2 sats >90% - continue bronchodilators with pulmonary hygiene per RT - Continue enteral nutrition - HD/UF per nephrology for toxin and volume clearance - conitue to monitor clinically, trend temperature curve and WCC - continue VTE prophylaxis with heparin SQ - continue stress ulcer prophylaxis with Famotidine -continue accuchecks with glycemic control for SSI (While critically ill target blood glucose of 140-180 mg/dL; avoid hypoglycemia) - continue mobility protocols and off loading for pressure ulcer prevention - Fluid restrictive strategies as tolerated by hemodynamics and by her renal function - continue to avoid nephrotoxins, dose all medications for CrCL and GFR -conitnue Monitor electrolyte profile closely and replete as indicated - Chronic home medications, continue same - All other care per attending / other consultants CONDITION: CRITICAL PROGNOSIS: GUARDED CODE STATUS: FULL CODE The high probability of a clinically significant, sudden or life-threatening deterioration of the [respiratory, cardiovascular, neurology, renal] system(s) required my full and direct attention, intervention and personal management. The aggregate critical care time was [31] minutes without overlap. Time includes spent on; [x] Data Review and interpretation [x] Patient assessment and monitoring of vital signs [x] Documentation [x] Medication orders and management Subjective Date of service: 07/21/19 Principal diagnosis: Acute hypoxemic resp failure; AMS; Severe Sepsis; ESRD; CHF; HTN; Seizure Interval history: Patient is seen today for: Acute hypoxemic respiratory failure on MVS;Acute to xic metabolic encephalopathy;Severe Sepsis; ESRD on HD Seen and examined at bedside; 24hour events reviewed; nursing and respiratory care staff consulted; no adverse overnight events reported to me; Vitals, labs, medications, chart reviewed. No fevers overnight; no diarrhea, has constipation, spontaneous eye opening and obeying simple commands, Tolerating tube feedings with acceptable glycemic control, no vomiting. Remains critically ill, orally intubated on MVS, on PSV but on a pressur support of 15 to generate tidal volumes of 300ml Objective Vital Signs - 12hr 07/21/19 07/21/19 07/21/19 05:56 06:00 07:00 Temperature Pulse Rate 79 80 82 Pulse Rate [ From Monitor] Respiratory 13 13 Rate Blood Pressure 131/72 136/53 139/53 O2 Sat by Pulse 99 99 Oximetry 07/21/19 07/21/19 07/21/19 08:00 08:14 09:00 Temperature 99.8 F H Pulse Rate 81 80 80 Pulse Rate [ 81 From Monitor] Respiratory 12 17 11 L Rate Blood Pressure 145/55 136/53 138/62 O2 Sat by Pulse 99 99 99 Oximetry 07/21/19 07/21/19 07/21/19 10:00 10:26 11:00 Temperature Pulse Rate 79 81 81 Pulse Rate [ From Monitor] Respiratory 10 L 9 L Rate Blood Pressure 152/61 152/61 148/58 O2 Sat by Pulse 99 99 Oximetry 07/21/19 07/21/19 07/21/19 12:00 12:10 13:00 Temperature 99.6 F Pulse Rate 78 77 79 Pulse Rate [ 78 From Monitor] Respiratory 11 L 10 L 13 Rate Blood Pressure 144/57 130/58 137/57 O2 Sat by Pulse 99 99 98 Oximetry 07/21/19 07/21/19 07/21/19 13:33 14:00 15:00 Temperature Pulse Rate 77 76 77 Pulse Rate [ From Monitor] Respiratory 14 15 Rate Blood Pressure 130/58 137/54 126/52 O2 Sat by Pulse 99 99 Oximetry 07/21/19 07/21/19 15:23 16:00 Temperature 98.6 F Pulse Rate 79 77 Pulse Rate [ 77 From Monitor] Respiratory 15 10 L Rate Blood Pressure 126/52 132/49 O2 Sat by Pulse 99 98 Oximetry Constitutional: no acute distress, other (middle aged thin female, normocephalic with mildly increased resp effort on MVS) Eyes: non-icteric ENT: oropharynx dry, other (ETT 23 cm JORY) Neck: supple, no lymphadenopathy, no JVD Effort: normal Ascultation: Bilateral: diminished breath sounds, rhonchi Percussion: Bilateral: not dull Cardiovascular: regular rate and rhythm Gastrointestinal: normoactive bowel sounds, soft, non-tender, non-distended Integumentary: normal, decubitus ulcer (sacral) Extremities: no cyanosis, no edema, pink and warm, pulses normal Neurologic: pupils equal and round, other (squeezes my had on command) Psychiatric: other (unable to assess re: AMS) CBC and BMP: 07/20/19 05:01 07/20/19 05:01 ABG, PT/INR, D-dimer: ABG ABG pH 7.425 pH Units (7.350-7.450) 07/13/19 05:50 ABG pCO2 42.9 mm Hg 07/13/19 05:50 ABG pO2 110.8 mm Hg (80.0-90.0) H 07/13/19 05:50 ABG O2 Saturation 98.0 % (95.0-99.0) 07/13/19 05:50 Abnormal lab findings: Abnormal Labs 07/03/19 07/03/19 07/03/19 01:00 01:00 01:00 WBC 17.9 H RBC Hgb Hct RDW 17.8 H Plt Count Lymph % (Auto) 11.7 L [place] % (Auto) [place] # 1.0 H Seg Neutrophils % 82.1 H Seg Neuts % (Manual) Seg Neutrophils # 14.7 H Seg Neutrophils # Man Monocytes # (Manual) ABG pH ABG pO2 ABG HCO3 ABG O2 Saturation ABG Base Excess ABG Hemoglobin Oxyhemoglobin Sodium Chloride 92.9 L Carbon Dioxide BUN 45 H Creatinine 5.3 H Glucose 229 H POC Glucose Hemoglobin A1c Calcium 10.5 H Phosphorus NT-Pro-B Natriuret Pep > 17520 H Albumin 2.5 L 07/03/19 07/03/19 07/03/19 01:00 01:35 04:30 WBC RBC Hgb Hct RDW Plt Count Lymph % (Auto) [place] % (Auto) [place] # Seg Neutrophils % Seg Neuts % (Manual) Seg Neutrophils # Seg Neutrophils # Man Monocytes # (Manual) ABG pH 7.555 H 7.489 H ABG pO2 65.4 L 149.9 H ABG HCO3 28.9 H 27.9 H ABG O2 Saturation ABG Base Excess 6.7 H 4.5 H ABG Hemoglobin Oxyhemoglobin 94.0 L Sodium Chloride Carbon Dioxide BUN Creatinine Glucose POC Glucose Hemoglobin A1c 7.0 H Calcium Phosphorus NT-Pro-B Natriuret Pep Albumin 07/03/19 07/03/19 07/03/19 12:10 17:35 23:59 WBC RBC Hgb Hct RDW Plt Count Lymph % (Auto) [place] % (Auto) [place] # Seg Neutrophils % Seg Neuts % (Manual) Seg Neutrophils # Seg Neutrophils # Man Monocytes # (Manual) ABG pH ABG pO2 ABG HCO3 ABG O2 Saturation ABG Base Excess ABG Hemoglobin Oxyhemoglobin Sodium Chloride Carbon Dioxide BUN Creatinine Glucose POC Glucose 246 H 163 H 112 H Hemoglobin A1c Calcium Phosphorus NT-Pro-B Natriuret Pep Albumin 07/04/19 07/04/19 07/04/19 04:24 04:56 04:56 WBC 17.3 H RBC Hgb Hct RDW 18.0 H Plt Count Lymph % (Auto) 8.7 L [place] % (Auto) [place] # 0.9 H Seg Neutrophils % 85.1 H Seg Neuts % (Manual) Seg Neutrophils # 14.8 H Seg Neutrophils # Man Monocytes # (Manual) ABG pH 7.496 H ABG pO2 74.0 L ABG HCO3 28.1 H ABG O2 Saturation ABG Base Excess 4.7 H ABG Hemoglobin Oxyhemoglobin 93.9 L Sodium Chloride 95.5 L Carbon Dioxide BUN 26 H Creatinine 3.4 H Glucose 145 H POC Glucose Hemoglobin A1c Calcium Phosphorus NT-Pro-B Natriuret Pep Albumin 07/04/19 07/04/19 07/05/19 07:04 17:56 01:45 WBC RBC Hgb Hct RDW Plt Count Lymph % (Auto) [place] % (Auto) [place] # Seg Neutrophils % Seg Neuts % (Manual) Seg Neutrophils # Seg Neutrophils # Man Monocytes # (Manual) ABG pH ABG pO2 ABG HCO3 ABG O2 Saturation ABG Base Excess ABG Hemoglobin Oxyhemoglobin Sodium Chloride Carbon Dioxide BUN Creatinine Glucose POC Glucose 162 H 273 H 148 H Hemoglobin A1c Calcium Phosphorus NT-Pro-B Natriuret Pep Albumin 07/05/19 07/05/19 07/05/19 03:07 03:07 05:57 WBC 18.7 H RBC Hgb Hct RDW 17.7 H Plt Count Lymph % (Auto) 7.6 L [place] % (Auto) [place] # 1.2 H Seg Neutrophils % 84.2 H Seg Neuts % (Manual) Seg Neutrophils # 15.7 H Seg Neutrophils # Man Monocytes # (Manual) ABG pH ABG pO2 ABG HCO3 ABG O2 Saturation ABG Base Excess ABG Hemoglobin Oxyhemoglobin Sodium Chloride 94.7 L 95.6 L Carbon Dioxide 19 L BUN 23 H 26 H Creatinine 2.7 H 2.9 H Glucose 161 H 179 H POC Glucose Hemoglobin A1c Calcium 10.3 H 10.5 H Phosphorus 5.20 H D NT-Pro-B Natriuret Pep Albumin 07/05/19 07/05/19 07/05/19 06:50 07:52 09:06 WBC 16.8 H RBC Hgb Hct RDW 18.1 H Plt Count Lymph % (Auto) 8.0 L [place] % (Auto) [place] # 1.1 H Seg Neutrophils % 84.4 H Seg Neuts % (Manual) Seg Neutrophils # 14.2 H Seg Neutrophils # Man Monocytes # (Manual) ABG pH ABG pO2 ABG HCO3 ABG O2 Saturation ABG Base Excess ABG Hemoglobin 11.7 L Oxyhemoglobin 94.6 L Sodium Chloride Carbon Dioxide BUN Creatinine Glucose POC Glucose 195 H Hemoglobin A1c Calcium Phosphorus NT-Pro-B Natriuret Pep Albumin 07/05/19 07/05/19 07/06/19 12:26 17:53 01:03 WBC RBC Hgb Hct RDW Plt Count Lymph % (Auto) [place] % (Auto) [place] # Seg Neutrophils % Seg Neuts % (Manual) Seg Neutrophils # Seg Neutrophils # Man Monocytes # (Manual) ABG pH ABG pO2 ABG HCO3 ABG O2 Saturation ABG Base Excess ABG Hemoglobin Oxyhemoglobin Sodium Chloride Carbon Dioxide BUN Creatinine Glucose POC Glucose 222 H 214 H 217 H Hemoglobin A1c Calcium Phosphorus NT-Pro-B Natriuret Pep Albumin 07/06/19 07/06/19 07/06/19 03:45 04:37 04:37 WBC 15.7 H RBC Hgb Hct RDW 17.9 H Plt Count Lymph % (Auto) 9.3 L [place] % (Auto) 8.2 H [place] # 1.3 H Seg Neutrophils % 81.5 H Seg Neuts % (Manual) Seg Neutrophils # 12.8 H Seg Neutrophils # Man Monocytes # (Manual) ABG pH ABG pO2 67.1 L ABG HCO3 ABG O2 Saturation 93.3 L ABG Base Excess ABG Hemoglobin Oxyhemoglobin 91.2 L Sodium Chloride 97.5 L Carbon Dioxide 20 L BUN 50 H Creatinine 4.5 H D Glucose 192 H POC Glucose Hemoglobin A1c Calcium Phosphorus 5.80 H NT-Pro-B Natriuret Pep Albumin 07/06/19 07/06/19 07/06/19 06:10 13:47 18:40 WBC RBC Hgb Hct RDW Plt Count Lymph % (Auto) [place] % (Auto) [place] # Seg Neutrophils % Seg Neuts % (Manual) Seg Neutrophils # Seg Neutrophils # Man Monocytes # (Manual) ABG pH ABG pO2 ABG HCO3 ABG O2 Saturation ABG Base Excess ABG Hemoglobin Oxyhemoglobin Sodium Chloride Carbon Dioxide BUN Creatinine Glucose POC Glucose 214 H 233 H 225 H Hemoglobin A1c Calcium Phosphorus NT-Pro-B Natriuret Pep Albumin 07/07/19 07/07/19 07/07/19 00:11 04:30 05:33 WBC RBC Hgb Hct RDW Plt Count Lymph % (Auto) [place] % (Auto) [place] # Seg Neutrophils % Seg Neuts % (Manual) Seg Neutrophils # Seg Neutrophils # Man Monocytes # (Manual) ABG pH ABG pO2 113.7 H ABG HCO3 28.6 H ABG O2 Saturation ABG Base Excess 4.0 H ABG Hemoglobin 11.3 L Oxyhemoglobin Sodium Chloride Carbon Dioxide BUN Creatinine Glucose POC Glucose 288 H 204 H Hemoglobin A1c Calcium Phosphorus NT-Pro-B Natriuret Pep Albumin 07/07/19 07/07/19 07/07/19 05:38 05:38 11:39 WBC 15.0 H RBC Hgb Hct RDW 18.3 H Plt Count Lymph % (Auto) 10.9 L [place] % (Auto) 8.9 H [place] # 1.3 H Seg Neutrophils % 79.6 H Seg Neuts % (Manual) Seg Neutrophils # 11.9 H Seg Neutrophils # Man Monocytes # (Manual) ABG pH ABG pO2 ABG HCO3 ABG O2 Saturation ABG Base Excess ABG Hemoglobin Oxyhemoglobin Sodium Chloride 94.8 L Carbon Dioxide BUN 32 H Creatinine 2.8 H Glucose 236 H POC Glucose 309 H Hemoglobin A1c Calcium 10.6 H Phosphorus NT-Pro-B Natriuret Pep Albumin 07/07/19 07/07/19 07/08/19 18:09 23:30 03:49 WBC RBC Hgb Hct RDW Plt Count Lymph % (Auto) [place] % (Auto) [place] # Seg Neutrophils % Seg Neuts % (Manual) Seg Neutrophils # Seg Neutrophils # Man Monocytes # (Manual) ABG pH ABG pO2 116.2 H ABG HCO3 27.7 H ABG O2 Saturation ABG Base Excess ABG Hemoglobin 11.2 L Oxyhemoglobin Sodium Chloride Carbon Dioxide BUN Creatinine Glucose POC Glucose 280 H 398 H Hemoglobin A1c Calcium Phosphorus NT-Pro-B Natriuret Pep Albumin 07/08/19 07/08/19 07/08/19 04:38 04:38 05:37 WBC 13.5 H RBC Hgb Hct RDW 18.3 H Plt Count Lymph % (Auto) [place] % (Auto) 9.5 H [place] # 1.3 H Seg Neutrophils % 75.6 H Seg Neuts % (Manual) Seg Neutrophils # 10.2 H Seg Neutrophils # Man Monocytes # (Manual) ABG pH ABG pO2 ABG HCO3 ABG O2 Saturation ABG Base Excess ABG Hemoglobin Oxyhemoglobin Sodium Chloride 94.9 L Carbon Dioxide BUN 64 H Creatinine 4.2 H Glucose 288 H POC Glucose 270 H Hemoglobin A1c Calcium 10.9 H Phosphorus NT-Pro-B Natriuret Pep Albumin 07/08/19 07/08/19 07/08/19 11:47 17:36 23:23 WBC RBC Hgb Hct RDW Plt Count Lymph % (Auto) [place] % (Auto) [place] # Seg Neutrophils % Seg Neuts % (Manual) Seg Neutrophils # Seg Neutrophils # Man Monocytes # (Manual) ABG pH ABG pO2 ABG HCO3 ABG O2 Saturation ABG Base Excess ABG Hemoglobin Oxyhemoglobin Sodium Chloride Carbon Dioxide BUN Creatinine Glucose POC Glucose 211 H 259 H 276 H Hemoglobin A1c Calcium Phosphorus NT-Pro-B Natriuret Pep Albumin 07/09/19 07/09/19 07/09/19 04:08 04:29 04:29 WBC 12.8 H RBC Hgb Hct RDW 17.7 H Plt Count Lymph % (Auto) 12.5 L [place] % (Auto) 8.4 H [place] # 1.1 H Seg Neutrophils % 77.0 H Seg Neuts % (Manual) Seg Neutrophils # 9.9 H Seg Neutrophils # Man Monocytes # (Manual) ABG pH 7.471 H ABG pO2 141.8 H ABG HCO3 32.3 H ABG O2 Saturation ABG Base Excess 7.8 H ABG Hemoglobin 11.3 L Oxyhemoglobin Sodium Chloride 94.1 L Carbon Dioxide BUN 36 H Creatinine 2.6 H Glucose 217 H POC Glucose Hemoglobin A1c Calcium 11.0 H Phosphorus NT-Pro-B Natriuret Pep Albumin 07/09/19 07/09/19 07/09/19 05:25 10:46 13:07 WBC RBC Hgb Hct RDW Plt Count Lymph % (Auto) [place] % (Auto) [place] # Seg Neutrophils % Seg Neuts % (Manual) Seg Neutrophils # Seg Neutrophils # Man Monocytes # (Manual) ABG pH ABG pO2 113.2 H ABG HCO3 30.9 H ABG O2 Saturation ABG Base Excess 6.0 H ABG Hemoglobin 10.5 L Oxyhemoglobin Sodium Chloride Carbon Dioxide BUN Creatinine Glucose POC Glucose 190 H 315 H Hemoglobin A1c Calcium Phosphorus NT-Pro-B Natriuret Pep Albumin 07/09/19 07/09/19 07/10/19 17:59 23:18 04:00 WBC RBC Hgb Hct RDW Plt Count Lymph % (Auto) [place] % (Auto) [place] # Seg Neutrophils % Seg Neuts % (Manual) Seg Neutrophils # Seg Neutrophils # Man Monocytes # (Manual) ABG pH ABG pO2 77.3 L ABG HCO3 30.4 H ABG O2 Saturation ABG Base Excess 5.1 H ABG Hemoglobin Oxyhemoglobin Sodium Chloride Carbon Dioxide BUN Creatinine Glucose POC Glucose 204 H 199 H Hemoglobin A1c Calcium Phosphorus NT-Pro-B Natriuret Pep Albumin 07/10/19 07/10/19 07/10/19 04:55 04:55 05:39 WBC 23.9 H RBC Hgb Hct RDW 18.1 H Plt Count Lymph % (Auto) [place] % (Auto) [place] # Seg Neutrophils % Seg Neuts % (Manual) 81.0 H Seg Neutrophils # Seg Neutrophils # Man 19.4 H Monocytes # (Manual) 1.0 H ABG pH ABG pO2 ABG HCO3 ABG O2 Saturation ABG Base Excess ABG Hemoglobin Oxyhemoglobin Sodium 133 L Chloride 88.0 L Carbon Dioxide BUN 64 H Creatinine 3.7 H Glucose 250 H POC Glucose 288 H Hemoglobin A1c Calcium 11.1 H Phosphorus NT-Pro-B Natriuret Pep Albumin 07/10/19 07/10/19 07/10/19 12:02 18:32 23:37 WBC RBC Hgb Hct RDW Plt Count Lymph % (Auto) [place] % (Auto) [place] # Seg Neutrophils % Seg Neuts % (Manual) Seg Neutrophils # Seg Neutrophils # Man Monocytes # (Manual) ABG pH ABG pO2 ABG HCO3 ABG O2 Saturation ABG Base Excess ABG Hemoglobin Oxyhemoglobin Sodium Chloride Carbon Dioxide BUN Creatinine Glucose POC Glucose 204 H 288 H 189 H Hemoglobin A1c Calcium Phosphorus NT-Pro-B Natriuret Pep Albumin 07/11/19 07/11/19 07/11/19 05:31 06:10 06:10 WBC 16.6 H RBC 3.60 L Hgb Hct RDW 16.8 H Plt Count Lymph % (Auto) [place] % (Auto) [place] # Seg Neutrophils % Seg Neuts % (Manual) Seg Neutrophils # Seg Neutrophils # Man Monocytes # (Manual) ABG pH ABG pO2 ABG HCO3 ABG O2 Saturation ABG Base Excess ABG Hemoglobin Oxyhemoglobin Sodium 130 L Chloride 87.4 L Carbon Dioxide BUN 47 H Creatinine 2.4 H Glucose 138 H POC Glucose 135 H Hemoglobin A1c Calcium 10.8 H Phosphorus NT-Pro-B Natriuret Pep Albumin 07/11/19 07/11/19 07/11/19 12:28 18:05 23:49 WBC RBC Hgb Hct RDW Plt Count Lymph % (Auto) [place] % (Auto) [place] # Seg Neutrophils % Seg Neuts % (Manual) Seg Neutrophils # Seg Neutrophils # Man Monocytes # (Manual) ABG pH ABG pO2 ABG HCO3 ABG O2 Saturation ABG Base Excess ABG Hemoglobin Oxyhemoglobin Sodium Chloride Carbon Dioxide BUN Creatinine Glucose POC Glucose 243 H 177 H 163 H Hemoglobin A1c Calcium Phosphorus NT-Pro-B Natriuret Pep Albumin 07/12/19 07/12/19 07/12/19 05:27 05:43 05:43 WBC 15.0 H RBC Hgb Hct RDW 17.5 H Plt Count Lymph % (Auto) [place] % (Auto) [place] # Seg Neutrophils % Seg Neuts % (Manual) Seg Neutrophils # Seg Neutrophils # Man Monocytes # (Manual) ABG pH ABG pO2 ABG HCO3 ABG O2 Saturation ABG Base Excess ABG Hemoglobin Oxyhemoglobin Sodium 128 L Chloride 85.7 L Carbon Dioxide BUN 76 H Creatinine 3.8 H D Glucose 157 H POC Glucose 156 H Hemoglobin A1c Calcium 10.8 H Phosphorus NT-Pro-B Natriuret Pep Albumin 07/12/19 07/12/19 07/13/19 12:03 18:30 00:03 WBC RBC Hgb Hct RDW Plt Count Lymph % (Auto) [place] % (Auto) [place] # Seg Neutrophils % Seg Neuts % (Manual) Seg Neutrophils # Seg Neutrophils # Man Monocytes # (Manual) ABG pH ABG pO2 ABG HCO3 ABG O2 Saturation ABG Base Excess ABG Hemoglobin Oxyhemoglobin Sodium Chloride Carbon Dioxide BUN Creatinine Glucose POC Glucose 162 H 183 H 187 H Hemoglobin A1c Calcium Phosphorus NT-Pro-B Natriuret Pep Albumin 07/13/19 07/13/19 07/13/19 05:50 05:56 07:50 WBC 13.5 H RBC 3.37 L Hgb 9.6 L Hct 28.8 L RDW 17.4 H Plt Count Lymph % (Auto) [place] % (Auto) [place] # Seg Neutrophils % Seg Neuts % (Manual) Seg Neutrophils # Seg Neutrophils # Man Monocytes # (Manual) ABG pH ABG pO2 110.8 H ABG HCO3 27.5 H ABG O2 Saturation ABG Base Excess ABG Hemoglobin 10.0 L Oxyhemoglobin Sodium Chloride Carbon Dioxide BUN Creatinine Glucose POC Glucose 216 H Hemoglobin A1c Calcium Phosphorus NT-Pro-B Natriuret Pep Albumin 07/13/19 07/13/19 07/13/19 07:50 13:18 18:09 WBC RBC Hgb Hct RDW Plt Count Lymph % (Auto) [place] % (Auto) [place] # Seg Neutrophils % Seg Neuts % (Manual) Seg Neutrophils # Seg Neutrophils # Man Monocytes # (Manual) ABG pH ABG pO2 ABG HCO3 ABG O2 Saturation ABG Base Excess ABG Hemoglobin Oxyhemoglobin Sodium 126 L Chloride 80.8 L Carbon Dioxide 21 L BUN 105 H Creatinine 4.7 H Glucose 215 H POC Glucose 187 H 202 H Hemoglobin A1c Calcium 10.3 H Phosphorus NT-Pro-B Natriuret Pep Albumin 07/13/19 07/13/19 07/14/19 19:44 23:23 04:17 WBC RBC Hgb Hct RDW 17.5 H Plt Count Lymph % (Auto) [place] % (Auto) [place] # Seg Neutrophils % Seg Neuts % (Manual) Seg Neutrophils # Seg Neutrophils # Man Monocytes # (Manual) ABG pH ABG pO2 ABG HCO3 ABG O2 Saturation ABG Base Excess ABG Hemoglobin Oxyhemoglobin Sodium 133 L D Chloride Carbon Dioxide BUN Creatinine Glucose POC Glucose 167 H Hemoglobin A1c Calcium Phosphorus NT-Pro-B Natriuret Pep Albumin 07/14/19 07/14/19 07/14/19 04:17 05:03 12:12 WBC RBC Hgb Hct RDW Plt Count Lymph % (Auto) [place] % (Auto) [place] # Seg Neutrophils % Seg Neuts % (Manual) Seg Neutrophils # Seg Neutrophils # Man Monocytes # (Manual) ABG pH ABG pO2 ABG HCO3 ABG O2 Saturation ABG Base Excess ABG Hemoglobin Oxyhemoglobin Sodium 131 L Chloride 88.8 L Carbon Dioxide BUN 47 H Creatinine 2.6 H Glucose 131 H POC Glucose 142 H 246 H Hemoglobin A1c Calcium Phosphorus NT-Pro-B Natriuret Pep Albumin 07/14/19 07/15/19 07/15/19 18:30 00:35 04:51 WBC RBC 3.51 L Hgb 9.9 L Hct 30.0 L RDW 17.6 H Plt Count 510 H Lymph % (Auto) [place] % (Auto) [place] # Seg Neutrophils % 72.4 H Seg Neuts % (Manual) Seg Neutrophils # Seg Neutrophils # Man Monocytes # (Manual) ABG pH ABG pO2 ABG HCO3 ABG O2 Saturation ABG Base Excess ABG Hemoglobin Oxyhemoglobin Sodium Chloride Carbon Dioxide BUN Creatinine Glucose POC Glucose 114 H 164 H Hemoglobin A1c Calcium Phosphorus NT-Pro-B Natriuret Pep Albumin 07/15/19 07/15/19 07/15/19 04:51 06:21 11:55 WBC RBC Hgb Hct RDW Plt Count Lymph % (Auto) [place] % (Auto) [place] # Seg Neutrophils % Seg Neuts % (Manual) Seg Neutrophils # Seg Neutrophils # Man Monocytes # (Manual) ABG pH ABG pO2 ABG HCO3 ABG O2 Saturation ABG Base Excess ABG Hemoglobin Oxyhemoglobin Sodium 134 L Chloride 88.7 L Carbon Dioxide BUN 78 H Creatinine 4.0 H D Glucose 141 H POC Glucose 135 H 172 H Hemoglobin A1c Calcium 10.4 H Phosphorus NT-Pro-B Natriuret Pep Albumin 07/15/19 07/15/19 07/15/19 17:46 18:10 23:20 WBC RBC Hgb Hct RDW Plt Count Lymph % (Auto) [place] % (Auto) [place] # Seg Neutrophils % Seg Neuts % (Manual) Seg Neutrophils # Seg Neutrophils # Man Monocytes # (Manual) ABG pH ABG pO2 ABG HCO3 ABG O2 Saturation ABG Base Excess ABG Hemoglobin Oxyhemoglobin Sodium Chloride Carbon Dioxide BUN Creatinine Glucose POC Glucose 203 H 237 H 184 H Hemoglobin A1c Calcium Phosphorus NT-Pro-B Natriuret Pep Albumin 07/16/19 07/16/19 07/16/19 04:44 04:44 05:44 WBC RBC Hgb Hct RDW 17.5 H Plt Count 605 H Lymph % (Auto) [place] % (Auto) [place] # Seg Neutrophils % 72.6 H Seg Neuts % (Manual) Seg Neutrophils # Seg Neutrophils # Man Monocytes # (Manual) ABG pH ABG pO2 ABG HCO3 ABG O2 Saturation ABG Base Excess ABG Hemoglobin Oxyhemoglobin Sodium Chloride 93.4 L Carbon Dioxide BUN 46 H Creatinine 2.6 H Glucose 125 H POC Glucose 147 H Hemoglobin A1c Calcium 10.5 H Phosphorus NT-Pro-B Natriuret Pep Albumin 07/16/19 07/16/19 07/16/19 12:17 17:55 18:06 WBC RBC Hgb Hct RDW Plt Count Lymph % (Auto) [place] % (Auto) [place] # Seg Neutrophils % Seg Neuts % (Manual) Seg Neutrophils # Seg Neutrophils # Man Monocytes # (Manual) ABG pH ABG pO2 ABG HCO3 ABG O2 Saturation ABG Base Excess ABG Hemoglobin Oxyhemoglobin Sodium Chloride Carbon Dioxide BUN Creatinine Glucose POC Glucose 222 H 129 H 121 H Hemoglobin A1c Calcium Phosphorus NT-Pro-B Natriuret Pep Albumin 07/17/19 07/17/19 07/17/19 00:31 03:58 03:58 WBC RBC Hgb Hct RDW 17.7 H Plt Count 647 H Lymph % (Auto) [place] % (Auto) 7.7 H [place] # Seg Neutrophils % Seg Neuts % (Manual) Seg Neutrophils # Seg Neutrophils # Man Monocytes # (Manual) ABG pH ABG pO2 ABG HCO3 ABG O2 Saturation ABG Base Excess ABG Hemoglobin Oxyhemoglobin Sodium 133 L Chloride 89.4 L Carbon Dioxide BUN 81 H Creatinine 3.5 H Glucose 139 H POC Glucose 195 H Hemoglobin A1c Calcium 10.8 H Phosphorus NT-Pro-B Natriuret Pep Albumin 07/17/19 07/17/19 07/17/19 05:50 13:06 17:50 WBC RBC Hgb Hct RDW Plt Count Lymph % (Auto) [place] % (Auto) [place] # Seg Neutrophils % Seg Neuts % (Manual) Seg Neutrophils # Seg Neutrophils # Man Monocytes # (Manual) ABG pH ABG pO2 ABG HCO3 ABG O2 Saturation ABG Base Excess ABG Hemoglobin Oxyhemoglobin Sodium Chloride Carbon Dioxide BUN Creatinine Glucose POC Glucose 137 H 176 H 154 H Hemoglobin A1c Calcium Phosphorus NT-Pro-B Natriuret Pep Albumin 07/17/19 07/18/19 07/18/19 23:10 05:15 05:15 WBC RBC Hgb Hct RDW 17.4 H Plt Count 645 H Lymph % (Auto) [place] % (Auto) [place] # Seg Neutrophils % 73.0 H Seg Neuts % (Manual) Seg Neutrophils # Seg Neutrophils # Man Monocytes # (Manual) ABG pH ABG pO2 ABG HCO3 ABG O2 Saturation ABG Base Excess ABG Hemoglobin Oxyhemoglobin Sodium Chloride 95.8 L Carbon Dioxide BUN 44 H Creatinine 2.3 H Glucose 164 H POC Glucose 186 H Hemoglobin A1c Calcium 10.6 H Phosphorus NT-Pro-B Natriuret Pep Albumin 07/18/19 07/18/19 07/18/19 05:55 10:24 11:57 WBC RBC Hgb Hct RDW Plt Count Lymph % (Auto) [place] % (Auto) [place] # Seg Neutrophils % Seg Neuts % (Manual) Seg Neutrophils # Seg Neutrophils # Man Monocytes # (Manual) ABG pH ABG pO2 ABG HCO3 ABG O2 Saturation ABG Base Excess ABG Hemoglobin Oxyhemoglobin Sodium Chloride Carbon Dioxide BUN Creatinine Glucose POC Glucose 146 H 161 H 236 H Hemoglobin A1c Calcium Phosphorus NT-Pro-B Natriuret Pep Albumin 07/18/19 07/18/19 07/19/19 18:15 18:34 00:56 WBC RBC Hgb Hct RDW Plt Count Lymph % (Auto) [place] % (Auto) [place] # Seg Neutrophils % Seg Neuts % (Manual) Seg Neutrophils # Seg Neutrophils # Man Monocytes # (Manual) ABG pH ABG pO2 ABG HCO3 ABG O2 Saturation ABG Base Excess ABG Hemoglobin Oxyhemoglobin Sodium Chloride Carbon Dioxide BUN Creatinine Glucose POC Glucose 110 H 109 H 245 H Hemoglobin A1c Calcium Phosphorus NT-Pro-B Natriuret Pep Albumin 07/19/19 07/19/19 07/19/19 05:31 05:31 06:11 WBC RBC 3.48 L Hgb Hct 30.1 L RDW 17.5 H Plt Count 599 H Lymph % (Auto) [place] % (Auto) [place] # Seg Neutrophils % Seg Neuts % (Manual) 80.0 H Seg Neutrophils # Seg Neutrophils # Man Monocytes # (Manual) ABG pH ABG pO2 ABG HCO3 ABG O2 Saturation ABG Base Excess ABG Hemoglobin Oxyhemoglobin Sodium Chloride 93.6 L Carbon Dioxide BUN 81 H Creatinine 3.7 H D Glucose 234 H POC Glucose 204 H Hemoglobin A1c Calcium 10.4 H Phosphorus NT-Pro-B Natriuret Pep Albumin 07/19/19 07/19/19 07/20/19 12:19 23:46 05:01 WBC RBC 3.13 L Hgb 8.9 L Hct 26.7 L RDW 17.4 H Plt Count 552 H Lymph % (Auto) [place] % (Auto) [place] # Seg Neutrophils % Seg Neuts % (Manual) Seg Neutrophils # Seg Neutrophils # Man Monocytes # (Manual) ABG pH ABG pO2 ABG HCO3 ABG O2 Saturation ABG Base Excess ABG Hemoglobin Oxyhemoglobin Sodium Chloride Carbon Dioxide BUN Creatinine Glucose POC Glucose 187 H 143 H Hemoglobin A1c Calcium Phosphorus NT-Pro-B Natriuret Pep Albumin 07/20/19 07/20/19 07/20/19 05:01 06:42 08:18 WBC RBC Hgb Hct RDW Plt Count Lymph % (Auto) [place] % (Auto) [place] # Seg Neutrophils % Seg Neuts % (Manual) Seg Neutrophils # Seg Neutrophils # Man Monocytes # (Manual) ABG pH ABG pO2 ABG HCO3 ABG O2 Saturation ABG Base Excess ABG Hemoglobin Oxyhemoglobin Sodium 134 L Chloride 88.4 L Carbon Dioxide 21 L BUN 110 H Creatinine 5.1 H Glucose 168 H POC Glucose 167 H 147 H Hemoglobin A1c Calcium Phosphorus NT-Pro-B Natriuret Pep Albumin 07/20/19 07/20/19 07/20/19 11:41 18:23 23:24 WBC RBC Hgb Hct RDW Plt Count Lymph % (Auto) [place] % (Auto) [place] # Seg Neutrophils % Seg Neuts % (Manual) Seg Neutrophils # Seg Neutrophils # Man Monocytes # (Manual) ABG pH ABG pO2 ABG HCO3 ABG O2 Saturation ABG Base Excess ABG Hemoglobin Oxyhemoglobin Sodium Chloride Carbon Dioxide BUN Creatinine Glucose POC Glucose 202 H 180 H 181 H Hemoglobin A1c Calcium Phosphorus NT-Pro-B Natriuret Pep Albumin 07/21/19 07/21/19 05:56 12:17 WBC RBC Hgb Hct RDW Plt Count Lymph % (Auto) [place] % (Auto) [place] # Seg Neutrophils % Seg Neuts % (Manual) Seg Neutrophils # Seg Neutrophils # Man Monocytes # (Manual) ABG pH ABG pO2 ABG HCO3 ABG O2 Saturation ABG Base Excess ABG Hemoglobin Oxyhemoglobin Sodium Chloride Carbon Dioxide BUN Creatinine Glucose POC Glucose 147 H 278 H Hemoglobin A1c Calcium Phosphorus NT-Pro-B Natriuret Pep Albumin Allied health notes reviewed: RT
[2019-07-22] MEDS: INSULIN LISPRO 100 UNIT/ML SUB-Q SCH ×5 (00:06→23:57)
[2019-07-22] MEDS: hydrALAZINE 25 MG TAB PO SCH ×3 (05:26→22:32)
--- NOTE | 2019-07-22 08:55 | Progress Note ---
Assessment and Plan Assessment and plan: Sepsis Source is unclear. Etiology may be secondary to pneumonia versus minimal cellulitis around sacral decubitus. Complted antibiotics Acute hypoxic respiratory failure -Continue mechanical ventilation per pulmonary. -Continue PSVT trials daily -Etiology secondary to CHF versus pneumonia. -For Trach and PEG to be done by Surg within next 1-2 days Toxic metabolic encephalopathy -Neuro checks -Continue to treat underlying causes. ESRD on HD -M/W/F -Avoid nephrotoxic agents -Renal dose all meds -Nephrology following Chronic Congestive heart Failure -Monitor input and output. -Cardiology reported no evidence of volume overload Hypertension -Continue to monitor BP -Patient is normotensive off blood pressure medications. Insulin-dependent diabetes -POC BG monitoring -SSI coverage prn Hx Seizure -Continue anticonvulsant meds -Seizure precautions. Sacral decubitus ulcer CT non contrasted without evidence of fluid collection or osteomyelitis. DVT PPX -On Heparin Disposition. Discussed with case management possibility of LTAC For Trach and PEG within 1-2 days The high probability of a clinically significant, sudden or life threatening deterioration of the [respiratory] system(s) required my full and direct attenti on, intervention and personal management. The aggregate critical care time was [34] minutes. This time is in addition to time spent performing reported procedures but includes the following: [x] Data Review and interpretation [x] Patient assessment and monitoring of vital signs [x] Documentation [x] Medication orders and management History Interval history: Patient still intubated, Hospitalist Physical - Physical exam Narrative exam: GEN: Not in acute distress, intubated, on vent HEENT: Normocephalic, atraumatic, Neck: supple, No JVD Lungs: Bilateral rhonchi, heart;S1 and S2 reg, no murmurs Abd:soft, non tender, non distended, normal bowel sounds Ext: No edema, no clubbing, no cyanosis Neuro: Intubated, sedated - Constitutional Vitals: Temp Pulse Resp BP Pulse Ox 99.1 F 73 11 L 132/57 100 07/22/19 08:00 07/22/19 08:26 07/22/19 08:26 07/22/19 08:26 07/22/19 08:26 General appearance: Present: other (intubated on the vent) MATT score - Matt Score Age > 65: (0) No Aspirin use within the Past 7 Days: (0) No 3 or more CAD Risk Factors: (1) Yes 2 or more Angina events in past 24 hrs: (0) No Known CAD with more than 50% Stenosis: (0) No Elevated Cardiac Markers: (1) Yes ST Deviation Greater than 0.5mm: (0) No MATT Score: 2 Results - Labs CBC & Chem 7: 07/20/19 05:01 07/20/19 05:01 Labs: Laboratory Last Values WBC 9.1 K/mm3 (4.5-11.0) 07/20/19 05:01 RBC 3.13 M/mm3 (3.65-5.03) L 07/20/19 05:01 Hgb 8.9 gm/dl (10.1-14.3) L 07/20/19 05:01 Hct 26.7 % (30.3-42.9) L 07/20/19 05:01 MCV 86 fl (79-97) 07/20/19 05:01 MCH 29 pg (28-32) 07/20/19 05:01 MCHC 33 % (30-34) 07/20/19 05:01 RDW 17.4 % (13.2-15.2) H 07/20/19 05:01 Plt Count 552 K/mm3 (140-440) H 07/20/19 05:01 Lymph % (Auto) 24.3 % (13.4-35.0) 07/20/19 05:01 [place] % (Auto) 4.6 % (0.0-7.3) 07/20/19 05:01 Eos % (Auto) 3.2 % (0.0-4.3) 07/20/19 05:01 Baso % (Auto) 0.4 % (0.0-1.8) 07/20/19 05:01 Lymph # 2.2 K/mm3 (1.2-5.4) 07/20/19 05:01 [place] # 0.4 K/mm3 (0.0-0.8) 07/20/19 05:01 Eos # 0.3 K/mm3 (0.0-0.4) 07/20/19 05:01 Baso # 0.0 K/mm3 (0.0-0.1) 07/20/19 05:01 Add Manual Diff Complete 07/19/19 05:31 Total Counted 100 07/19/19 05:31 Seg Neutrophils % 67.5 % (40.0-70.0) 07/20/19 05:01 Seg Neuts % (Manual) 80.0 % (40.0-70.0) H 07/19/19 05:31 Band Neutrophils % 1.0 % 07/19/19 05:31 Lymphocytes % (Manual) 16.0 % (13.4-35.0) 07/19/19 05:31 Reactive Lymphs % (Man) 0 % 07/19/19 05:31 Monocytes % (Manual) 3.0 % (0.0-7.3) 07/19/19 05:31 Eosinophils % (Manual) 0 % (0.0-4.3) 07/19/19 05:31 Basophils % (Manual) 0 % (0.0-1.8) 07/19/19 05:31 Metamyelocytes % 0 % 07/19/19 05:31 Myelocytes % 0 % 07/19/19 05:31 Promyelocytes % 0 % 07/19/19 05:31 Blast Cells % 0 % 07/19/19 05:31 Nucleated RBC % Not Reportable 07/19/19 05:31 Seg Neutrophils # 6.1 K/mm3 (1.8-7.7) 07/20/19 05:01 Seg Neutrophils # Man 7.4 K/mm3 (1.8-7.7) 07/19/19 05:31 Band Neutrophils # 0.1 K/mm3 07/19/19 05:31 Lymphocytes # (Manual) 1.5 K/mm3 (1.2-5.4) 07/19/19 05:31 Abs React Lymphs (Man) 0.0 K/mm3 07/19/19 05:31 Monocytes # (Manual) 0.3 K/mm3 (0.0-0.8) 07/19/19 05:31 Eosinophils # (Manual) 0.0 K/mm3 (0.0-0.4) 07/19/19 05:31 Basophils # (Manual) 0.0 K/mm3 (0.0-0.1) 07/19/19 05:31 Metamyelocytes # 0.0 K/mm3 07/19/19 05:31 Myelocytes # 0.0 K/mm3 07/19/19 05:31 Promyelocytes # 0.0 K/mm3 07/19/19 05:31 Blast Cells # 0.0 K/mm3 07/19/19 05:31 WBC Morphology Not Reportable 07/19/19 05:31 Hypersegmented Neuts Not Reportable 07/19/19 05:31 Hyposegmented Neuts Not Reportable 07/19/19 05:31 Hypogranular Neuts Not Reportable 07/19/19 05:31 Smudge Cells Not Reportable 07/19/19 05:31 Toxic Granulation Not Reportable 07/19/19 05:31 Toxic Vacuolation Not Reportable 07/19/19 05:31 Dohle Bodies Not Reportable 07/19/19 05:31 Pelger-Huet Anomaly Not Reportable 07/19/19 05:31 Andrei Rods Not Reportable 07/19/19 05:31 Platelet Estimate Consistent w auto 07/19/19 05:31 Clumped Platelets Not Reportable 07/19/19 05:31 Plt Clumps, EDTA Not Reportable 07/19/19 05:31 Large Platelets Not Reportable 07/19/19 05:31 Giant Platelets Not Reportable 07/19/19 05:31 Platelet Satelliting Not Reportable 07/19/19 05:31 Plt Morphology Comment Not Reportable 07/19/19 05:31 RBC Morphology Not Reportable 07/19/19 05:31 Dimorphic RBCs Not Reportable 07/19/19 05:31 Polychromasia Not Reportable 07/19/19 05:31 Hypochromasia Not Reportable 07/19/19 05:31 Poikilocytosis Not Reportable 07/19/19 05:31 Anisocytosis 1+ 07/19/19 05:31 Microcytosis Not Reportable 07/19/19 05:31 Macrocytosis Not Reportable 07/19/19 05:31 Spherocytes Not Reportable 07/19/19 05:31 Pappenheimer Bodies Not Reportable 07/19/19 05:31 Sickle Cells Not Reportable 07/19/19 05:31 Target Cells Not Reportable 07/19/19 05:31 Tear Drop Cells Not Reportable 07/19/19 05:31 Ovalocytes Not Reportable 07/19/19 05:31 Stomatocytes Rare 07/19/19 05:31 Helmet Cells Not Reportable 07/19/19 05:31 Nye-Menard Bodies Not Reportable 07/19/19 05:31 [place] Rings Not Reportable 07/19/19 05:31 T[place]ne Cells Not Reportable 07/19/19 05:31 Bite Cells Not Reportable 07/19/19 05:31 Crenated Cell Not Reportable 07/19/19 05:31 Elliptocytes Not Reportable 07/19/19 05:31 Acanthocytes (Spur) Not Reportable 07/19/19 05:31 Rouleaux Not Reportable 07/19/19 05:31 Hemoglobin C Crystals Not Reportable 07/19/19 05:31 Schistocytes Not Reportable 07/19/19 05:31 Malaria parasites Not Reportable 07/19/19 05:31 Tristen Bodies Not Reportable 07/19/19 05:31 Hem Pathologist Commnt No 07/19/19 05:31 ABG pH 7.425 pH Units (7.350-7.450) 07/13/19 05:50 ABG pCO2 42.9 mm Hg 07/13/19 05:50 ABG pO2 110.8 mm Hg (80.0-90.0) H 07/13/19 05:50 ABG HCO3 27.5 mmol/L (20.0-26.0) H 07/13/19 05:50 ABG O2 Saturation 98.0 % (95.0-99.0) 07/13/19 05:50 ABG O2 Content 13.7 (0.0-44) 07/13/19 05:50 ABG Base Excess 2.8 mmol/L (-2.0-3.0) 07/13/19 05:50 ABG Hemoglobin 10.0 gm/dl (12.0-16.0) L 07/13/19 05:50 ABG Carboxyhemoglobin 1.4 % (0.0-5.0) 07/13/19 05:50 ABG Methemoglobin 0.5 % (0.0-1.5) 07/13/19 05:50 Oxyhemoglobin 96.2 % (95.0-99.0) 07/13/19 05:50 FiO2 40 % 07/13/19 05:50 Sodium 134 mmol/L (137-145) L 07/20/19 05:01 Potassium 4.9 mmol/L (3.6-5.0) 07/20/19 05:01 Chloride 88.4 mmol/L (98-107) L 07/20/19 05:01 Carbon Dioxide 21 mmol/L (22-30) L 07/20/19 05:01 Anion Gap 30 mmol/L 07/20/19 05:01 BUN 110 mg/dL (7-17) H 07/20/19 05:01 Creatinine 5.1 mg/dL (0.7-1.2) H 07/20/19 05:01 Estimated GFR 9 ml/min 07/20/19 05:01 BUN/Creatinine Ratio 22 % 07/20/19 05:01 Glucose 168 mg/dL (65-100) H 07/20/19 05:01 POC Glucose 145 (70-105) H 07/22/19 05:27 Hemoglobin A1c 7.0 % (4-6) H 07/03/19 01:00 Lactic Acid 1.20 mmol/L (0.7-2.0) 07/03/19 04:13 Calcium 10.0 mg/dL (8.4-10.2) 07/20/19 05:01 Phosphorus 2.60 mg/dL (2.5-4.5) D 07/09/19 04:29 Total Bilirubin 0.30 mg/dL (0.1-1.2) 07/03/19 01:00 AST 22 units/L (5-40) 07/03/19 01:00 ALT 9 units/L (7-56) 07/03/19 01:00 Alkaline Phosphatase 101 units/L (35-129) 07/03/19 01:00 Ammonia 35.0 umol/L (25-60) 07/03/19 01:58 NT-Pro-B Natriuret Pep > 82581 pg/mL (0-900) H 07/03/19 01:00 Total Protein 7.0 g/dL (6.3-8.2) 07/03/19 01:00 Albumin 2.5 g/dL (3.9-5) L 07/03/19 01:00 Albumin/Globulin Ratio 0.6 % 07/03/19 01:00 TSH 2.600 mlU/mL (0.270-4.200) 01/24/20 01:00 Urine Color Yellow (Yellow) 07/03/19 Unknown Urine Turbidity Clear (Clear) 07/03/19 Unknown Urine pH 6.0 (5.0-7.0) 07/03/19 Unknown Ur Specific [place] 1.012 (1.003-1.030) 07/03/19 Unknown Urine Protein >500 mg/dL (Negative) 07/03/19 Unknown Urine Glucose (UA) >=500 mg/dL (Negative) 07/03/19 Unknown Urine Ketones Neg mg/dL (Negative) 07/03/19 Unknown Urine Blood Neg (Negative) 07/03/19 Unknown Urine Nitrite Neg (Negative) 07/03/19 Unknown Ur Reducing Substances Not Reportable 07/03/19 Unknown Urine Bilirubin Neg (Negative) 07/03/19 Unknown Urine Ictotest Not Reportable 07/03/19 Unknown Urine Urobilinogen < 2.0 mg/dL (<2.0) 07/03/19 Unknown Ur Leukocyte Esterase Neg (Negative) 07/03/19 Unknown Urine WBC (Auto) 1.0 /HPF (0.0-6.0) 07/03/19 Unknown Urine RBC (Auto) 2.0 /HPF (0.0-6.0) 07/03/19 Unknown U Epithel Cells (Auto) < 1.0 /HPF (0-13.0) 07/03/19 Unknown Urine Mucus Few /HPF 07/03/19 Unknown Random Vancomycin 18.7 ug/mL (0-40.0) 07/08/19 04:38 Influenza A (Rapid) Negative (Negative) 07/05/19 14:30 Influenza B (Rapid) Negative (Negative) 07/05/19 14:30 Active Medications - Current Medications Current Medications: Generic Name Dose Route Start Last Admin Trade Name Freq PRN Reason Stop Dose Admin Acetaminophen 650 mg 07/08/19 10:00 07/22/19 03:48 Tylenol MT 650 mg Q4H PRN Administration Pain, Mild (1-3) Albumin Human 25 gm 07/06/19 13:42 07/20/19 14:39 Alburx 25% (Albumin) IV 25 gm FEDE PRN Administration Hypotension Amlodipine Besylate 10 mg 07/17/19 13:00 07/21/19 10:26 Amlodipine PO 10 mg QDAY YANG Administration Lipase/Protease/Amylase 1 each 07/05/19 16:[address] 10,500 Unit FEEDTUBE PRN PRN For Clogged Feeding Tube Carvedilol 25 mg 07/17/19 22:00 07/21/19 21:23 Coreg PO 25 mg BID YANG Administration Cinacalcet 30 mg 07/18/19 10:00 07/21/19 10:28 Sensipar PO 30 mg QDAY YANG Administration Dextrose 0 ml 07/03/19 04:34 D50w (25gm) Syringe IV Q30MIN PRN Hypoglycemia Protocol Docusate Sodium 100 mg 07/15/19 10:00 07/21/19 21:24 Colace FEEDTUBE 100 mg BID YANG Administration Famotidine 20 mg 07/07/19 10:00 07/21/19 10:27 Pepcid PO 20 mg DAILY YANG Administration Heparin Sodium (Porcine) 5,000 unit 07/03/19 10:00 07/21/19 21:23 Heparin SUB-Q 5,000 unit Q12HR YANG Administration Hydralazine HCl 50 mg 07/17/19 14:00 07/22/19 05:26 Apresoline PO 50 mg Q8HR YANG Administration Hydrophilic Ointment 1 applic 07/03/19 00:53 Vaseline Lip Therapy TP Q2HR PRN Dry Lips Fentanyl Citrate 2,000 mcg in 100 mls @ 2.608 mls/hr 07/03/19 01:00 07/04/19 18:10 Fentanyl Drip Premix IV Infused TITR YANG Titration Protocol 1 MCG/KG/HR Sodium Chloride 100 mls @ 999 mls/hr 07/05/19 13:41 Nacl 0.9% IV FEDE PRN Hypotension Insulin Glargine 18 units 07/10/19 13:43 07/21/19 10:28 Lantus SUB-Q 18 units DAILY YANG Administration Insulin Human Lispro 0 unit 07/03/19 06:00 07/22/19 05:27 Humalog SUB-Q Not Given Q6HR YANG Protocol Multi-Ingred Cream/Lotion/Oil/Oint 1 applic 07/03/19 00:53 Artificial Tears Ophth Oint OU Q4HR PRN Dry Eye(s) Risperidone 0.5 mg 07/20/19 22:00 07/21/19 21:23 Risperdal PO 0.5 mg BID YANG Administration Simple Syrup 15 ml 07/05/19 16:27 Simple Syrup FEEDTUBE PRN PRN Hypoglycemia Simple Syrup 30 ml 07/05/19 16:27 Simple Syrup FEEDTUBE PRN PRN Hypoglycemia Sodium Bicarbonate 325 mg 07/05/19 16:27 Sodium Bicarbonate FEEDTUBE PRN PRN For Clogged Feeding Tube Sodium Chloride 10 ml 07/03/19 10:00 07/21/19 21:24 Sodium Chloride Flush Syringe 10 Ml IV 10 ml BID YANG Administration Sodium Chloride 10 ml 07/03/19 04:34 07/05/19 10:42 Sodium Chloride Flush Syringe 10 Ml IV 10 ml PRN PRN Administration LINE FLUSH Valproic Acid 500 mg 07/17/19 22:00 07/21/19 21:23 Depakene Liq FEEDTUBE 500 mg BID YANG Administration Nutrition/Malnutrition Assess - Dietary Evaluation Nutrition/Malnutrition Findings: Nutrition Notes Start: 07/06/19 08:50 Freq: Status: Active Protocol: Document 07/21/19 11:23 CT (Rec: 07/21/19 11:30 CT [id number]) Co-Sign 07/21/19 11:23 LP Nutrition Notes Initial or Follow up Reassessment Current Diagnosis CKD (stage V CKD),Decubitus( Pressure Ulcer),Diabetes,Heart Failure,Respiratory Failure Other Pertinent Diagnosis on HD, Sacral PU, seizures, bipolar disorder, metabolic encephalopathy Current Diet Nepro 1.8 at 35 ml/hr Labs/Tests Na 134 BUN 110 Cr 5.1 Pertinent Medications Heparin Bumex Lantus Height 5 ft 2 in Weight 53.1 kg [place] Body Weight (kg) 50.00 BMI 21.4 Weight change and time frame wt gain likely d/t fluid Weight Status Appropriate Subjective/Other Information FU for tolerance. Nepro 1.8 running at 35ml/hr. Percent of energy/protein needs met: 100%/100% Burn Absent Trauma Absent GI Symptoms None Current % PO Negligible Minimum of two criteria No physical signs of malnutrition #2 Nutrition Diagnosis Increased nutrient needs ( specify in comment below) Comments: Protein Diagnosis Progress(for reassessment Continues documentation) #1 Nutrition Diagnosis Inadequate oral intake Diagnosis Progress(for reassessment Continues documentation) Is patient on ventilator? Yes Is Patient Ambulatory and/or Out of Bed No REE-([facility]-confined to bed) 1282.032 Calculation Used for Recommendations Astrid Reza Additional Notes Protein: 58 -96g (1.2-2g/kg) Fluid: 1-1.5 L/ day Nutrition Intervention Change Diet Order: TF Nutrition Support: Nepro 1.8 at 35ml/hr Change flush to 100 ml q4h. Kcal 1,512 Protein (gm) 68 Fluid (mL) 611 Goal #1 TF tolerance Goal #2 Wound Healing Anticipated Discharge Needs: unable to determine at this time Follow-Up By: 07/28/19 Additional Comments Follow up for TF at goal rate
[2019-07-22] MEDS: DOCUSATE SODIUM 100 MG/10 ML ORAL LIQD FEEDTUBE SCH ×2 (09:10→22:32)
[2019-07-22] MEDS: FAMOTIDINE 20 MG TAB PO SCH (09:10)
[2019-07-22] MEDS: CINACALCET 30 MG TAB PO SCH (09:10)
[2019-07-22] MEDS: VALPROIC ACID 250 MG/5 ML ORAL LIQD FEEDTUBE SCH ×2 (09:10→22:32)
[2019-07-22] MEDS: risperiDONE 0.25 MG TAB PO SCH ×2 (09:12→22:33)
[2019-07-22] MEDS: HEPARIN 5,000 UNIT/1 ML VIAL SUB-Q SCH ×2 (09:14→22:32)
[2019-07-22] MEDS: INSULIN GLARGINE 100 UNITS/ML SUB-Q SCH (09:14)
--- NOTE | 2019-07-22 12:20 | Progress Note ---
Assessment and Plan Acute hypoxic respiratory failure on mechanical ventilation Acute metabolic encephalopathy ESRD on HD HTN Sepsis Hx of seizures DM Type 2 on insulin Hypercalemia Hyponatremia Plan: - HD today for UF and clearance - Assess dialysis needs daily - Epogen dosing for anemia management - Currently Intubated on Vent - as per Pulmonology - Planning on Trach/PEG - Strict I&O - Renally dose meds - This pt undergoes outpatient HD at [facility] every MWF - Renal plan d/w Dr Wray Subjective Date of service: 07/22/19 Principal diagnosis: Acute hypoxemic resp failure; AMS; Severe Sepsis; ESRD; CHF; HTN; Seizure Interval history: Pt seen in ICU, intubated on ventilator, daughter at bedside, updated on renal plan Objective - Vital Signs Vital signs: Vital Signs - 12hr 07/22/19 07/22/19 07/22/19 01:00 01:04 02:00 Temperature Pulse Rate 81 81 81 Pulse Rate [ From Monitor] Respiratory 14 16 Rate Blood Pressure 119/47 119/47 115/48 O2 Sat by Pulse 99 99 99 Oximetry 07/22/19 07/22/19 07/22/19 03:00 04:00 04:25 Temperature 101.0 F H Pulse Rate 82 81 81 Pulse Rate [ 78 From Monitor] Respiratory 14 15 Rate Blood Pressure 118/50 116/46 119/47 O2 Sat by Pulse 99 99 99 Oximetry 07/22/19 07/22/19 07/22/19 05:00 05:26 06:00 Temperature Pulse Rate 76 76 74 Pulse Rate [ From Monitor] Respiratory 14 13 Rate Blood Pressure 116/46 134/47 130/45 O2 Sat by Pulse 99 99 Oximetry 07/22/19 07/22/19 07/22/19 07:00 08:00 08:26 Temperature 99.1 F Pulse Rate 74 73 73 Pulse Rate [ From Monitor] Respiratory 15 12 11 L Rate Blood Pressure 130/48 135/50 132/57 O2 Sat by Pulse 99 99 100 Oximetry 07/22/19 07/22/19 09:00 11:52 Temperature Pulse Rate 69 71 Pulse Rate [ From Monitor] Respiratory 12 11 L Rate Blood Pressure 129/47 145/49 O2 Sat by Pulse 100 100 Oximetry - General Appearance General appearance: intubated EENT: ATNC Neck: no JVD Respiratory: Present: Decreased Breath Sounds (intubated on ventilator) Cardiology: regular, S1S2, other (ACCESS: Left AVF + thrill and bruit noted) Gastrointestinal: normoactive bowel sounds (Dobhoff tube in place) Integumentary: warm and dry Neurologic: other (intubated on vent) Musculoskeletal: other (no edema to BLE) Psychiatric: other (unable to assess) - Lab 07/20/19 05:01 07/20/19 05:01 Most recent lab results ABG pH 7.425 pH Units (7.350-7.450) 07/13/19 05:50 ABG pCO2 42.9 mm Hg 07/13/19 05:50 ABG pO2 110.8 mm Hg (80.0-90.0) H 07/13/19 05:50 ABG HCO3 27.5 mmol/L (20.0-26.0) H 07/13/19 05:50 ABG O2 Saturation 98.0 % (95.0-99.0) 07/13/19 05:50 Calcium 10.0 mg/dL (8.4-10.2) 07/20/19 05:01 Phosphorus 2.60 mg/dL (2.5-4.5) D 07/09/19 04:29 Medications & Allergies - Medications Allergies/Adverse Reactions: Allergies No Known Allergies Allergy (Verified 07/03/19 10:58) Home Medications: Home Medications Medication Instructions Recorded Confirmed Last Taken Type Amlodipine Besylate [Norvasc] 10 mg PO DAILY 06/24/19 07/04/19 Unknown History AtorvaSTATin [Lipitor] 20 mg PO QHS 06/24/19 07/04/19 Unknown History Bumetanide 1 mg PO DAILY 06/24/19 07/04/19 Unknown History Cinacalcet HCl 30 mg PO DAILY 06/24/19 07/04/19 Unknown History Divalproex Sodium [Depakote 500 mg PO BID 06/24/19 07/04/19 Unknown History Sprinkle] Lispro Insulin [HumaLOG] 0 - 200 unit SQ ACHS 06/24/19 07/04/19 Unknown History Vit B Comp No.3/Folic/C/Biotin 1 each PO DAILY 06/24/19 07/04/19 Unknown History [Nephro-Umu Rx Tablet] carvediloL [Coreg] 25 mg PO BID 06/24/19 07/04/19 Unknown History hydrALAZINE [Apresoline TAB] 50 mg PO Q8HR 06/24/19 07/04/19 Unknown History ALBUTEROL NEB's [Proventil 0.083% 2.5 mg IH TIDRT #30 nebu 06/30/19 07/04/19 Unknown Rx NEBS] Lactulose [Cephulac] 20 gm PO Q8HR oral.liqd 06/30/19 07/04/19 Unknown Rx Sevelamer Carbonate [Renvela] 800 mg PO TIDWM tablet 06/30/19 07/04/19 Unknown Rx risperiDONE [RisperDAL] 0.5 mg PO BID tablet 06/30/19 07/04/19 Unknown Rx Active Medications: Generic Name Dose Route Start Last Admin Trade Name Freq PRN Reason Stop Dose Admin Acetaminophen 650 mg 07/08/19 10:00 07/22/19 03:48 Tylenol [place] 650 mg Q4H PRN Administration Pain, Mild (1-3) Albumin Human 25 gm 07/06/19 13:42 07/20/19 14:39 Alburx 25% (Albumin) IV 25 gm FEDE PRN Administration Hypotension Amlodipine Besylate 10 mg 07/17/19 13:00 07/21/19 10:26 Amlodipine PO 10 mg QDAY YANG Administration Lipase/Protease/Amylase 1 each 07/05/19 16:27 Pancreaze 10,500 Unit FEEDTUBE PRN PRN For Clogged Feeding Tube Carvedilol 25 mg 07/17/19 22:00 07/21/19 21:23 Coreg PO 25 mg BID YANG Administration Cinacalcet 30 mg 07/18/19 10:00 07/22/19 09:10 Sensipar PO 30 mg QDAY YANG Administration Dextrose 0 ml 07/03/19 04:34 D50w (25gm) Syringe IV Q30MIN PRN Hypoglycemia Protocol Docusate Sodium 100 mg 07/15/19 10:00 07/22/19 09:10 Colace FEEDTUBE 100 mg BID YANG Administration Famotidine 20 mg 07/07/19 10:00 07/22/19 09:10 Pepcid PO 20 mg DAILY YANG Administration Heparin Sodium (Porcine) 5,000 unit 07/03/19 10:00 07/22/19 09:14 Heparin SUB-Q 5,000 unit Q12HR YANG Administration Hydralazine HCl 50 mg 07/17/19 14:00 07/22/19 05:26 Apresoline PO 50 mg Q8HR YANG Administration Hydrophilic Ointment 1 applic 07/03/19 00:53 Vaseline Lip Therapy TP Q2HR PRN Dry Lips Fentanyl Citrate 2,000 mcg in 100 mls @ 2.608 mls/hr 07/03/19 01:00 07/04/19 18:10 Fentanyl Drip Premix IV Infused TITR YANG Titration Protocol 1 MCG/KG/HR Sodium Chloride 100 mls @ 999 mls/hr 07/05/19 13:41 Nacl 0.9% IV FEDE PRN Hypotension Insulin Glargine 18 units 07/10/19 13:43 07/22/19 09:14 Lantus SUB-Q 18 units DAILY YANG Administration Insulin Human Lispro 0 unit 07/03/19 06:00 07/22/19 05:27 Humalog SUB-Q Not Given Q6HR [facility] Protocol Multi-Ingred Cream/Lotion/Oil/Oint 1 applic 07/03/19 00:53 Artificial Tears Ophth Oint OU Q4HR PRN Dry Eye(s) Risperidone 0.5 mg 07/20/19 22:00 07/22/19 09:12 Risperdal PO 0.5 mg BID YANG Administration Simple Syrup 15 ml 07/05/19 16:27 Simple Syrup FEEDTUBE PRN PRN Hypoglycemia Simple Syrup 30 ml 07/05/19 16:27 Simple Syrup FEEDTUBE PRN PRN Hypoglycemia Sodium Bicarbonate 325 mg 07/05/19 16:27 Sodium Bicarbonate FEEDTUBE PRN PRN For Clogged Feeding Tube Sodium Chloride 10 ml 07/03/19 10:00 07/22/19 09:14 Sodium Chloride Flush Syringe 10 Ml IV 10 ml BID YANG Administration Sodium Chloride 10 ml 07/03/19 04:34 07/05/19 10:42 Sodium Chloride Flush Syringe 10 Ml IV 10 ml PRN PRN Administration LINE FLUSH Valproic Acid 500 mg 07/17/19 22:00 07/22/19 09:10 Depakene Liq FEEDTUBE 500 mg BID YANG Administration
--- NOTE | 2019-07-22 12:45 | Event Note ---
Date: 07/22/19 Met with the patient's daughter at the bedside. We had a long discussion about the ostomy and PEG tube placement. We discussed the indication, risks, benefits, alternatives to the procedures. All questions were answered and consent was obtained. Currently the patient is on a spontaneous breathing trial and is doing well, however mental status precludes extubation. I discussed this with Dr. Beatty yesterday. Will follow up again with Dr. Beatty today to discuss the possibility of extubation versus scheduling the trach/PEG in the next few days. Discussed plan with MARJORIE Ardon.
--- NOTE | 2019-07-22 13:30 | Progress Note ---
Assessment and Plan Acute hypoxemic respiratory failure on MVS Acute toxic metabolic encephalopathy Severe Sepsis-resolved ESRD on HD Congestive heart Failure Accelerated Hypertension H/O Seizure -Slow but consistent improvement in her mental status -Continue daily PSV as tolerated, Will continue to titrate pressure support to generate tidal volumes >300. She has had an ETT for 19 days and requires PS 15 to generate adequate tidal volumes. Discussed with general surgery, taht she remains at high risk of failing if extubated. I will recommend that we proceed with trachesotomy at this time with slow, controlled weaning. -Continue intermittent IV analgesia for now, avoid continuous infusions Continue agitation management Continue all supportive care PT/OT Discussed with general surgery service - VAP bundle addressed (aspiration precautions, HOB>40 degrees) -Lung protective strategies -wean FiO2 for O2 sats >90% - continue bronchodilators with pulmonary hygiene per RT - Continue enteral nutrition - HD/UF per nephrology for toxin and volume clearance - continue to monitor clinically, trend temperature curve and WCC - continue VTE prophylaxis with heparin SQ - continue stress ulcer prophylaxis with Famotidine -continue accuchecks with glycemic control for SSI (While critically ill target blood glucose of 140-180 mg/dL; avoid hypoglycemia) - continue mobility protocols and off loading for pressure ulcer prevention - Fluid restrictive strategies as tolerated by hemodynamics and by her renal function - continue to avoid nephrotoxins, dose all medications for CrCL and GFR -conitnue Monitor electrolyte profile closely and replete as indicated - Chronic home medications, continue same - All other care per attending / other consultants CONDITION: CRITICAL PROGNOSIS: GUARDED CODE STATUS: FULL CODE The high probability of a clinically significant, sudden or life-threatening deterioration of the [respiratory, cardiovascular, neurology, renal] system(s) required my full and direct attention, intervention and personal management. The aggregate critical care time was [30] minutes without overlap. Time includes spent on; [x] Data Review and interpretation [x] Patient assessment and monitoring of vital signs [x] Documentation [x] Medication orders and management Subjective Date of service: 07/22/19 Principal diagnosis: Acute hypoxemic resp failure; AMS; Severe Sepsis; ESRD; CHF; HTN; Seizure Interval history: Patient is seen today for: Acute hypoxemic respiratory failure on MVS;Acute toxic metabolic encephalopathy;Severe Sepsis; ESRD on HD Seen and examined at bedside; 24hour events reviewed; nursing and respiratory care staff consulted; no adverse overnight events reported to me; Vitals, labs, medications, chart reviewed. No fevers overnight; no diarrhea, has constipation, spontaneous eye opening and obeying simple commands, Tolerating tube feedings with acceptable glycemic control, no vomiting. Remains critically ill, orally intubated on MVS, on PSV but on a pressure support of 15 to generate tidal volumes of 300ml Objective Vital Signs - 12hr 07/22/19 07/22/19 07/22/19 02:00 03:00 04:00 Temperature 101.0 F H Pulse Rate 81 82 81 Pulse Rate [ 78 From Monitor] Respiratory 16 14 15 Rate Blood Pressure 115/48 118/50 116/46 O2 Sat by Pulse 99 99 99 Oximetry 07/22/19 07/22/19 07/22/19 04:25 05:00 05:26 Temperature Pulse Rate 81 76 76 Pulse Rate [ From Monitor] Respiratory 14 Rate Blood Pressure 119/47 116/46 134/47 O2 Sat by Pulse 99 99 Oximetry 07/22/19 07/22/19 07/22/19 06:00 07:00 08:00 Temperature 99.1 F Pulse Rate 74 74 73 Pulse Rate [ From Monitor] Respiratory 13 15 12 Rate Blood Pressure 130/45 130/48 135/50 O2 Sat by Pulse 99 99 99 Oximetry 07/22/19 07/22/19 07/22/19 08:26 09:00 11:52 Temperature Pulse Rate 73 69 71 Pulse Rate [ From Monitor] Respiratory 11 L 12 11 L Rate Blood Pressure 132/57 129/47 145/49 O2 Sat by Pulse 100 100 100 Oximetry Constitutional: no acute distress, other (middle aged thin female, normocephalic with mildly increased resp effort on MVS) Eyes: non-icteric ENT: oropharynx dry, other (ETT 23 cm JORY) Neck: supple, no lymphadenopathy, no JVD Effort: normal Ascultation: Bilateral: diminished breath sounds, rhonchi Percussion: Bilateral: not dull Cardiovascular: regular rate and rhythm Gastrointestinal: normoactive bowel sounds, soft, non-tender, non-distended Integumentary: normal, decubitus ulcer (sacral) Extremities: no cyanosis, no edema, pink and warm, pulses normal Neurologic: pupils equal and round, other (squeezes my had on command) Psychiatric: other (unable to assess re: AMS) CBC and BMP: 07/20/19 05:01 07/20/19 05:01 ABG, PT/INR, D-dimer: ABG ABG pH 7.425 pH Units (7.350-7.450) 07/13/19 05:50 ABG pCO2 42.9 mm Hg 07/13/19 05:50 ABG pO2 110.8 mm Hg (80.0-90.0) H 07/13/19 05:50 ABG O2 Saturation 98.0 % (95.0-99.0) 07/13/19 05:50 Abnormal lab findings: Abnormal Labs 07/03/19 07/03/19 07/03/19 01:00 01:00 01:00 WBC 17.9 H RBC Hgb Hct RDW 17.8 H Plt Count Lymph % (Auto) 11.7 L [facility] % (Auto) [facility] # 1.0 H Seg Neutrophils % 82.1 H Seg Neuts % (Manual) Seg Neutrophils # 14.7 H Seg Neutrophils # Man Monocytes # (Manual) ABG pH ABG pO2 ABG HCO3 ABG O2 Saturation ABG Base Excess ABG Hemoglobin Oxyhemoglobin Sodium Chloride 92.9 L Carbon Dioxide BUN 45 H Creatinine 5.3 H Glucose 229 H POC Glucose Hemoglobin A1c Calcium 10.5 H Phosphorus NT-Pro-B Natriuret Pep > 08637 H Albumin 2.5 L 07/03/19 07/03/19 07/03/19 01:00 01:35 04:30 WBC RBC Hgb Hct RDW Plt Count Lymph % (Auto) [facility] % (Auto) [facility] # Seg Neutrophils % Seg Neuts % (Manual) Seg Neutrophils # Seg Neutrophils # Man Monocytes # (Manual) ABG pH 7.555 H 7.489 H ABG pO2 65.4 L 149.9 H ABG HCO3 28.9 H 27.9 H ABG O2 Saturation ABG Base Excess 6.7 H 4.5 H ABG Hemoglobin Oxyhemoglobin 94.0 L Sodium Chloride Carbon Dioxide BUN Creatinine Glucose POC Glucose Hemoglobin A1c 7.0 H Calcium Phosphorus NT-Pro-B Natriuret Pep Albumin 07/03/19 07/03/19 07/03/19 12:10 17:35 23:59 WBC RBC Hgb Hct RDW Plt Count Lymph % (Auto) [facility] % (Auto) [facility] # Seg Neutrophils % Seg Neuts % (Manual) Seg Neutrophils # Seg Neutrophils # Man Monocytes # (Manual) ABG pH ABG pO2 ABG HCO3 ABG O2 Saturation ABG Base Excess ABG Hemoglobin Oxyhemoglobin Sodium Chloride Carbon Dioxide BUN Creatinine Glucose POC Glucose 246 H 163 H 112 H Hemoglobin A1c Calcium Phosphorus NT-Pro-B Natriuret Pep Albumin 07/04/19 07/04/19 07/04/19 04:24 04:56 04:56 WBC 17.3 H RBC Hgb Hct RDW 18.0 H Plt Count Lymph % (Auto) 8.7 L [facility] % (Auto) [facility] # 0.9 H Seg Neutrophils % 85.1 H Seg Neuts % (Manual) Seg Neutrophils # 14.8 H Seg Neutrophils # Man Monocytes # (Manual) ABG pH 7.496 H ABG pO2 74.0 L ABG HCO3 28.1 H ABG O2 Saturation ABG Base Excess 4.7 H ABG Hemoglobin Oxyhemoglobin 93.9 L Sodium Chloride 95.5 L Carbon Dioxide BUN 26 H Creatinine 3.4 H Glucose 145 H POC Glucose Hemoglobin A1c Calcium Phosphorus NT-Pro-B Natriuret Pep Albumin 07/04/19 07/04/19 07/05/19 07:04 17:56 01:45 WBC RBC Hgb Hct RDW Plt Count Lymph % (Auto) [facility] % (Auto) [facility] # Seg Neutrophils % Seg Neuts % (Manual) Seg Neutrophils # Seg Neutrophils # Man Monocytes # (Manual) ABG pH ABG pO2 ABG HCO3 ABG O2 Saturation ABG Base Excess ABG Hemoglobin Oxyhemoglobin Sodium Chloride Carbon Dioxide BUN Creatinine Glucose POC Glucose 162 H 273 H 148 H Hemoglobin A1c Calcium Phosphorus NT-Pro-B Natriuret Pep Albumin 07/05/19 07/05/19 07/05/19 03:07 03:07 05:57 WBC 18.7 H RBC Hgb Hct RDW 17.7 H Plt Count Lymph % (Auto) 7.6 L [facility] % (Auto) [facility] # 1.2 H Seg Neutrophils % 84.2 H Seg Neuts % (Manual) Seg Neutrophils # 15.7 H Seg Neutrophils # Man Monocytes # (Manual) ABG pH ABG pO2 ABG HCO3 ABG O2 Saturation ABG Base Excess ABG Hemoglobin Oxyhemoglobin Sodium Chloride 94.7 L 95.6 L Carbon Dioxide 19 L BUN 23 H 26 H Creatinine 2.7 H 2.9 H Glucose 161 H 179 H POC Glucose Hemoglobin A1c Calcium 10.3 H 10.5 H Phosphorus 5.20 H D NT-Pro-B Natriuret Pep Albumin 07/05/19 07/05/19 07/05/19 06:50 07:52 09:06 WBC 16.8 H RBC Hgb Hct RDW 18.1 H Plt Count Lymph % (Auto) 8.0 L [facility] % (Auto) [facility] # 1.1 H Seg Neutrophils % 84.4 H Seg Neuts % (Manual) Seg Neutrophils # 14.2 H Seg Neutrophils # Man Monocytes # (Manual) ABG pH ABG pO2 ABG HCO3 ABG O2 Saturation ABG Base Excess ABG Hemoglobin 11.7 L Oxyhemoglobin 94.6 L Sodium Chloride Carbon Dioxide BUN Creatinine Glucose POC Glucose 195 H Hemoglobin A1c Calcium Phosphorus NT-Pro-B Natriuret Pep Albumin 07/05/19 07/05/19 07/06/19 12:26 17:53 01:03 WBC RBC Hgb Hct RDW Plt Count Lymph % (Auto) [facility] % (Auto) [facility] # Seg Neutrophils % Seg Neuts % (Manual) Seg Neutrophils # Seg Neutrophils # Man Monocytes # (Manual) ABG pH ABG pO2 ABG HCO3 ABG O2 Saturation ABG Base Excess ABG Hemoglobin Oxyhemoglobin Sodium Chloride Carbon Dioxide BUN Creatinine Glucose POC Glucose 222 H 214 H 217 H Hemoglobin A1c Calcium Phosphorus NT-Pro-B Natriuret Pep Albumin 07/06/19 07/06/19 07/06/19 03:45 04:37 04:37 WBC 15.7 H RBC Hgb Hct RDW 17.9 H Plt Count Lymph % (Auto) 9.3 L [facility] % (Auto) 8.2 H [facility] # 1.3 H Seg Neutrophils % 81.5 H Seg Neuts % (Manual) Seg Neutrophils # 12.8 H Seg Neutrophils # Man Monocytes # (Manual) ABG pH ABG pO2 67.1 L ABG HCO3 ABG O2 Saturation 93.3 L ABG Base Excess ABG Hemoglobin Oxyhemoglobin 91.2 L Sodium Chloride 97.5 L Carbon Dioxide 20 L BUN 50 H Creatinine 4.5 H D Glucose 192 H POC Glucose Hemoglobin A1c Calcium Phosphorus 5.80 H NT-Pro-B Natriuret Pep Albumin 07/06/19 07/06/19 07/06/19 06:10 13:47 18:40 WBC RBC Hgb Hct RDW Plt Count Lymph % (Auto) [facility] % (Auto) [facility] # Seg Neutrophils % Seg Neuts % (Manual) Seg Neutrophils # Seg Neutrophils # Man Monocytes # (Manual) ABG pH ABG pO2 ABG HCO3 ABG O2 Saturation ABG Base Excess ABG Hemoglobin Oxyhemoglobin Sodium Chloride Carbon Dioxide BUN Creatinine Glucose POC Glucose 214 H 233 H 225 H Hemoglobin A1c Calcium Phosphorus NT-Pro-B Natriuret Pep Albumin 07/07/19 07/07/19 07/07/19 00:11 04:30 05:33 WBC RBC Hgb Hct RDW Plt Count Lymph % (Auto) [facility] % (Auto) [facility] # Seg Neutrophils % Seg Neuts % (Manual) Seg Neutrophils # Seg Neutrophils # Man Monocytes # (Manual) ABG pH ABG pO2 113.7 H ABG HCO3 28.6 H ABG O2 Saturation ABG Base Excess 4.0 H ABG Hemoglobin 11.3 L Oxyhemoglobin Sodium Chloride Carbon Dioxide BUN Creatinine Glucose POC Glucose 288 H 204 H Hemoglobin A1c Calcium Phosphorus NT-Pro-B Natriuret Pep Albumin 07/07/19 07/07/19 07/07/19 05:38 05:38 11:39 WBC 15.0 H RBC Hgb Hct RDW 18.3 H Plt Count Lymph % (Auto) 10.9 L [facility] % (Auto) 8.9 H [facility] # 1.3 H Seg Neutrophils % 79.6 H Seg Neuts % (Manual) Seg Neutrophils # 11.9 H Seg Neutrophils # Man Monocytes # (Manual) ABG pH ABG pO2 ABG HCO3 ABG O2 Saturation ABG Base Excess ABG Hemoglobin Oxyhemoglobin Sodium Chloride 94.8 L Carbon Dioxide BUN 32 H Creatinine 2.8 H Glucose 236 H POC Glucose 309 H Hemoglobin A1c Calcium 10.6 H Phosphorus NT-Pro-B Natriuret Pep Albumin 07/07/19 07/07/19 07/08/19 18:09 23:30 03:49 WBC RBC Hgb Hct RDW Plt Count Lymph % (Auto) [facility] % (Auto) [facility] # Seg Neutrophils % Seg Neuts % (Manual) Seg Neutrophils # Seg Neutrophils # Man Monocytes # (Manual) ABG pH ABG pO2 116.2 H ABG HCO3 27.7 H ABG O2 Saturation ABG Base Excess ABG Hemoglobin 11.2 L Oxyhemoglobin Sodium Chloride Carbon Dioxide BUN Creatinine Glucose POC Glucose 280 H 398 H Hemoglobin A1c Calcium Phosphorus NT-Pro-B Natriuret Pep Albumin 07/08/19 07/08/19 07/08/19 04:38 04:38 05:37 WBC 13.5 H RBC Hgb Hct RDW 18.3 H Plt Count Lymph % (Auto) [facility] % (Auto) 9.5 H [facility] # 1.3 H Seg Neutrophils % 75.6 H Seg Neuts % (Manual) Seg Neutrophils # 10.2 H Seg Neutrophils # Man Monocytes # (Manual) ABG pH ABG pO2 ABG HCO3 ABG O2 Saturation ABG Base Excess ABG Hemoglobin Oxyhemoglobin Sodium Chloride 94.9 L Carbon Dioxide BUN 64 H Creatinine 4.2 H Glucose 288 H POC Glucose 270 H Hemoglobin A1c Calcium 10.9 H Phosphorus NT-Pro-B Natriuret Pep Albumin 07/08/19 07/08/19 07/08/19 11:47 17:36 23:23 WBC RBC Hgb Hct RDW Plt Count Lymph % (Auto) [facility] % (Auto) [facility] # Seg Neutrophils % Seg Neuts % (Manual) Seg Neutrophils # Seg Neutrophils # Man Monocytes # (Manual) ABG pH ABG pO2 ABG HCO3 ABG O2 Saturation ABG Base Excess ABG Hemoglobin Oxyhemoglobin Sodium Chloride Carbon Dioxide BUN Creatinine Glucose POC Glucose 211 H 259 H 276 H Hemoglobin A1c Calcium Phosphorus NT-Pro-B Natriuret Pep Albumin 07/09/19 07/09/19 07/09/19 04:08 04:29 04:29 WBC 12.8 H RBC Hgb Hct RDW 17.7 H Plt Count Lymph % (Auto) 12.5 L [facility] % (Auto) 8.4 H [facility] # 1.1 H Seg Neutrophils % 77.0 H Seg Neuts % (Manual) Seg Neutrophils # 9.9 H Seg Neutrophils # Man Monocytes # (Manual) ABG pH 7.471 H ABG pO2 141.8 H ABG HCO3 32.3 H ABG O2 Saturation ABG Base Excess 7.8 H ABG Hemoglobin 11.3 L Oxyhemoglobin Sodium Chloride 94.1 L Carbon Dioxide BUN 36 H Creatinine 2.6 H Glucose 217 H POC Glucose Hemoglobin A1c Calcium 11.0 H Phosphorus NT-Pro-B Natriuret Pep Albumin 07/09/19 07/09/19 07/09/19 05:25 10:46 13:07 WBC RBC Hgb Hct RDW Plt Count Lymph % (Auto) [facility] % (Auto) [facility] # Seg Neutrophils % Seg Neuts % (Manual) Seg Neutrophils # Seg Neutrophils # Man Monocytes # (Manual) ABG pH ABG pO2 113.2 H ABG HCO3 30.9 H ABG O2 Saturation ABG Base Excess 6.0 H ABG Hemoglobin 10.5 L Oxyhemoglobin Sodium Chloride Carbon Dioxide BUN Creatinine Glucose POC Glucose 190 H 315 H Hemoglobin A1c Calcium Phosphorus NT-Pro-B Natriuret Pep Albumin 07/09/19 07/09/19 07/10/19 17:59 23:18 04:00 WBC RBC Hgb Hct RDW Plt Count Lymph % (Auto) [facility] % (Auto) [facility] # Seg Neutrophils % Seg Neuts % (Manual) Seg Neutrophils # Seg Neutrophils # Man Monocytes # (Manual) ABG pH ABG pO2 77.3 L ABG HCO3 30.4 H ABG O2 Saturation ABG Base Excess 5.1 H ABG Hemoglobin Oxyhemoglobin Sodium Chloride Carbon Dioxide BUN Creatinine Glucose POC Glucose 204 H 199 H Hemoglobin A1c Calcium Phosphorus NT-Pro-B Natriuret Pep Albumin 07/10/19 07/10/19 07/10/19 04:55 04:55 05:39 WBC 23.9 H RBC Hgb Hct RDW 18.1 H Plt Count Lymph % (Auto) [facility] % (Auto) [facility] # Seg Neutrophils % Seg Neuts % (Manual) 81.0 H Seg Neutrophils # Seg Neutrophils # Man 19.4 H Monocytes # (Manual) 1.0 H ABG pH ABG pO2 ABG HCO3 ABG O2 Saturation ABG Base Excess ABG Hemoglobin Oxyhemoglobin Sodium 133 L Chloride 88.0 L Carbon Dioxide BUN 64 H Creatinine 3.7 H Glucose 250 H POC Glucose 288 H Hemoglobin A1c Calcium 11.1 H Phosphorus NT-Pro-B Natriuret Pep Albumin 07/10/19 07/10/19 07/10/19 12:02 18:32 23:37 WBC RBC Hgb Hct RDW Plt Count Lymph % (Auto) [facility] % (Auto) [facility] # Seg Neutrophils % Seg Neuts % (Manual) Seg Neutrophils # Seg Neutrophils # Man Monocytes # (Manual) ABG pH ABG pO2 ABG HCO3 ABG O2 Saturation ABG Base Excess ABG Hemoglobin Oxyhemoglobin Sodium Chloride Carbon Dioxide BUN Creatinine Glucose POC Glucose 204 H 288 H 189 H Hemoglobin A1c Calcium Phosphorus NT-Pro-B Natriuret Pep Albumin 07/11/19 07/11/19 07/11/19 05:31 06:10 06:10 WBC 16.6 H RBC 3.60 L Hgb Hct RDW 16.8 H Plt Count Lymph % (Auto) [facility] % (Auto) [facility] # Seg Neutrophils % Seg Neuts % (Manual) Seg Neutrophils # Seg Neutrophils # Man Monocytes # (Manual) ABG pH ABG pO2 ABG HCO3 ABG O2 Saturation ABG Base Excess ABG Hemoglobin Oxyhemoglobin Sodium 130 L Chloride 87.4 L Carbon Dioxide BUN 47 H Creatinine 2.4 H Glucose 138 H POC Glucose 135 H Hemoglobin A1c Calcium 10.8 H Phosphorus NT-Pro-B Natriuret Pep Albumin 07/11/19 07/11/19 07/11/19 12:28 18:05 23:49 WBC RBC Hgb Hct RDW Plt Count Lymph % (Auto) [facility] % (Auto) [facility] # Seg Neutrophils % Seg Neuts % (Manual) Seg Neutrophils # Seg Neutrophils # Man Monocytes # (Manual) ABG pH ABG pO2 ABG HCO3 ABG O2 Saturation ABG Base Excess ABG Hemoglobin Oxyhemoglobin Sodium Chloride Carbon Dioxide BUN Creatinine Glucose POC Glucose 243 H 177 H 163 H Hemoglobin A1c Calcium Phosphorus NT-Pro-B Natriuret Pep Albumin 07/12/19 07/12/19 07/12/19 05:27 05:43 05:43 WBC 15.0 H RBC Hgb Hct RDW 17.5 H Plt Count Lymph % (Auto) [facility] % (Auto) [facility] # Seg Neutrophils % Seg Neuts % (Manual) Seg Neutrophils # Seg Neutrophils # Man Monocytes # (Manual) ABG pH ABG pO2 ABG HCO3 ABG O2 Saturation ABG Base Excess ABG Hemoglobin Oxyhemoglobin Sodium 128 L Chloride 85.7 L Carbon Dioxide BUN 76 H Creatinine 3.8 H D Glucose 157 H POC Glucose 156 H Hemoglobin A1c Calcium 10.8 H Phosphorus NT-Pro-B Natriuret Pep Albumin 07/12/19 07/12/19 07/13/19 12:03 18:30 00:03 WBC RBC Hgb Hct RDW Plt Count Lymph % (Auto) [facility] % (Auto) [facility] # Seg Neutrophils % Seg Neuts % (Manual) Seg Neutrophils # Seg Neutrophils # Man Monocytes # (Manual) ABG pH ABG pO2 ABG HCO3 ABG O2 Saturation ABG Base Excess ABG Hemoglobin Oxyhemoglobin Sodium Chloride Carbon Dioxide BUN Creatinine Glucose POC Glucose 162 H 183 H 187 H Hemoglobin A1c Calcium Phosphorus NT-Pro-B Natriuret Pep Albumin 07/13/19 07/13/19 07/13/19 05:50 05:56 07:50 WBC 13.5 H RBC 3.37 L Hgb 9.6 L Hct 28.8 L RDW 17.4 H Plt Count Lymph % (Auto) [facility] % (Auto) [facility] # Seg Neutrophils % Seg Neuts % (Manual) Seg Neutrophils # Seg Neutrophils # Man Monocytes # (Manual) ABG pH ABG pO2 110.8 H ABG HCO3 27.5 H ABG O2 Saturation ABG Base Excess ABG Hemoglobin 10.0 L Oxyhemoglobin Sodium Chloride Carbon Dioxide BUN Creatinine Glucose POC Glucose 216 H Hemoglobin A1c Calcium Phosphorus NT-Pro-B Natriuret Pep Albumin 07/13/19 07/13/19 07/13/19 07:50 13:18 18:09 WBC RBC Hgb Hct RDW Plt Count Lymph % (Auto) [facility] % (Auto) [facility] # Seg Neutrophils % Seg Neuts % (Manual) Seg Neutrophils # Seg Neutrophils # Man Monocytes # (Manual) ABG pH ABG pO2 ABG HCO3 ABG O2 Saturation ABG Base Excess ABG Hemoglobin Oxyhemoglobin Sodium 126 L Chloride 80.8 L Carbon Dioxide 21 L BUN 105 H Creatinine 4.7 H Glucose 215 H POC Glucose 187 H 202 H Hemoglobin A1c Calcium 10.3 H Phosphorus NT-Pro-B Natriuret Pep Albumin 07/13/19 07/13/19 07/14/19 19:44 23:23 04:17 WBC RBC Hgb Hct RDW 17.5 H Plt Count Lymph % (Auto) [facility] % (Auto) [facility] # Seg Neutrophils % Seg Neuts % (Manual) Seg Neutrophils # Seg Neutrophils # Man Monocytes # (Manual) ABG pH ABG pO2 ABG HCO3 ABG O2 Saturation ABG Base Excess ABG Hemoglobin Oxyhemoglobin Sodium 133 L D Chloride Carbon Dioxide BUN Creatinine Glucose POC Glucose 167 H Hemoglobin A1c Calcium Phosphorus NT-Pro-B Natriuret Pep Albumin 07/14/19 07/14/19 07/14/19 04:17 05:03 12:12 WBC RBC Hgb Hct RDW Plt Count Lymph % (Auto) [facility] % (Auto) [facility] # Seg Neutrophils % Seg Neuts % (Manual) Seg Neutrophils # Seg Neutrophils # Man Monocytes # (Manual) ABG pH ABG pO2 ABG HCO3 ABG O2 Saturation ABG Base Excess ABG Hemoglobin Oxyhemoglobin Sodium 131 L Chloride 88.8 L Carbon Dioxide BUN 47 H Creatinine 2.6 H Glucose 131 H POC Glucose 142 H 246 H Hemoglobin A1c Calcium Phosphorus NT-Pro-B Natriuret Pep Albumin 07/14/19 07/15/19 07/15/19 18:30 00:35 04:51 WBC RBC 3.51 L Hgb 9.9 L Hct 30.0 L RDW 17.6 H Plt Count 510 H Lymph % (Auto) [facility] % (Auto) [facility] # Seg Neutrophils % 72.4 H Seg Neuts % (Manual) Seg Neutrophils # Seg Neutrophils # Man Monocytes # (Manual) ABG pH ABG pO2 ABG HCO3 ABG O2 Saturation ABG Base Excess ABG Hemoglobin Oxyhemoglobin Sodium Chloride Carbon Dioxide BUN Creatinine Glucose POC Glucose 114 H 164 H Hemoglobin A1c Calcium Phosphorus NT-Pro-B Natriuret Pep Albumin 07/15/19 07/15/19 07/15/19 04:51 06:21 11:55 WBC RBC Hgb Hct RDW Plt Count Lymph % (Auto) [facility] % (Auto) [facility] # Seg Neutrophils % Seg Neuts % (Manual) Seg Neutrophils # Seg Neutrophils # Man Monocytes # (Manual) ABG pH ABG pO2 ABG HCO3 ABG O2 Saturation ABG Base Excess ABG Hemoglobin Oxyhemoglobin Sodium 134 L Chloride 88.7 L Carbon Dioxide BUN 78 H Creatinine 4.0 H D Glucose 141 H POC Glucose 135 H 172 H Hemoglobin A1c Calcium 10.4 H Phosphorus NT-Pro-B Natriuret Pep Albumin 07/15/19 07/15/19 07/15/19 17:46 18:10 23:20 WBC RBC Hgb Hct RDW Plt Count Lymph % (Auto) [facility] % (Auto) [facility] # Seg Neutrophils % Seg Neuts % (Manual) Seg Neutrophils # Seg Neutrophils # Man Monocytes # (Manual) ABG pH ABG pO2 ABG HCO3 ABG O2 Saturation ABG Base Excess ABG Hemoglobin Oxyhemoglobin Sodium Chloride Carbon Dioxide BUN Creatinine Glucose POC Glucose 203 H 237 H 184 H Hemoglobin A1c Calcium Phosphorus NT-Pro-B Natriuret Pep Albumin 07/16/19 07/16/19 07/16/19 04:44 04:44 05:44 WBC RBC Hgb Hct RDW 17.5 H Plt Count 605 H Lymph % (Auto) [facility] % (Auto) [facility] # Seg Neutrophils % 72.6 H Seg Neuts % (Manual) Seg Neutrophils # Seg Neutrophils # Man Monocytes # (Manual) ABG pH ABG pO2 ABG HCO3 ABG O2 Saturation ABG Base Excess ABG Hemoglobin Oxyhemoglobin Sodium Chloride 93.4 L Carbon Dioxide BUN 46 H Creatinine 2.6 H Glucose 125 H POC Glucose 147 H Hemoglobin A1c Calcium 10.5 H Phosphorus NT-Pro-B Natriuret Pep Albumin 07/16/19 07/16/19 07/16/19 12:17 17:55 18:06 WBC RBC Hgb Hct RDW Plt Count Lymph % (Auto) [facility] % (Auto) [facility] # Seg Neutrophils % Seg Neuts % (Manual) Seg Neutrophils # Seg Neutrophils # Man Monocytes # (Manual) ABG pH ABG pO2 ABG HCO3 ABG O2 Saturation ABG Base Excess ABG Hemoglobin Oxyhemoglobin Sodium Chloride Carbon Dioxide BUN Creatinine Glucose POC Glucose 222 H 129 H 121 H Hemoglobin A1c Calcium Phosphorus NT-Pro-B Natriuret Pep Albumin 07/17/19 07/17/19 07/17/19 00:31 03:58 03:58 WBC RBC Hgb Hct RDW 17.7 H Plt Count 647 H Lymph % (Auto) [facility] % (Auto) 7.7 H [facility] # Seg Neutrophils % Seg Neuts % (Manual) Seg Neutrophils # Seg Neutrophils # Man Monocytes # (Manual) ABG pH ABG pO2 ABG HCO3 ABG O2 Saturation ABG Base Excess ABG Hemoglobin Oxyhemoglobin Sodium 133 L Chloride 89.4 L Carbon Dioxide BUN 81 H Creatinine 3.5 H Glucose 139 H POC Glucose 195 H Hemoglobin A1c Calcium 10.8 H Phosphorus NT-Pro-B Natriuret Pep Albumin 07/17/19 07/17/19 07/17/19 05:50 13:06 17:50 WBC RBC Hgb Hct RDW Plt Count Lymph % (Auto) [facility] % (Auto) [facility] # Seg Neutrophils % Seg Neuts % (Manual) Seg Neutrophils # Seg Neutrophils # Man Monocytes # (Manual) ABG pH ABG pO2 ABG HCO3 ABG O2 Saturation ABG Base Excess ABG Hemoglobin Oxyhemoglobin Sodium Chloride Carbon Dioxide BUN Creatinine Glucose POC Glucose 137 H 176 H 154 H Hemoglobin A1c Calcium Phosphorus NT-Pro-B Natriuret Pep Albumin 07/17/19 07/18/19 07/18/19 23:10 05:15 05:15 WBC RBC Hgb Hct RDW 17.4 H Plt Count 645 H Lymph % (Auto) [facility] % (Auto) [facility] # Seg Neutrophils % 73.0 H Seg Neuts % (Manual) Seg Neutrophils # Seg Neutrophils # Man Monocytes # (Manual) ABG pH ABG pO2 ABG HCO3 ABG O2 Saturation ABG Base Excess ABG Hemoglobin Oxyhemoglobin Sodium Chloride 95.8 L Carbon Dioxide BUN 44 H Creatinine 2.3 H Glucose 164 H POC Glucose 186 H Hemoglobin A1c Calcium 10.6 H Phosphorus NT-Pro-B Natriuret Pep Albumin 07/18/19 07/18/19 07/18/19 05:55 10:24 11:57 WBC RBC Hgb Hct RDW Plt Count Lymph % (Auto) [facility] % (Auto) [facility] # Seg Neutrophils % Seg Neuts % (Manual) Seg Neutrophils # Seg Neutrophils # Man Monocytes # (Manual) ABG pH ABG pO2 ABG HCO3 ABG O2 Saturation ABG Base Excess ABG Hemoglobin Oxyhemoglobin Sodium Chloride Carbon Dioxide BUN Creatinine Glucose POC Glucose 146 H 161 H 236 H Hemoglobin A1c Calcium Phosphorus NT-Pro-B Natriuret Pep Albumin 07/18/19 07/18/19 07/19/19 18:15 18:34 00:56 WBC RBC Hgb Hct RDW Plt Count Lymph % (Auto) [facility] % (Auto) [facility] # Seg Neutrophils % Seg Neuts % (Manual) Seg Neutrophils # Seg Neutrophils # Man Monocytes # (Manual) ABG pH ABG pO2 ABG HCO3 ABG O2 Saturation ABG Base Excess ABG Hemoglobin Oxyhemoglobin Sodium Chloride Carbon Dioxide BUN Creatinine Glucose POC Glucose 110 H 109 H 245 H Hemoglobin A1c Calcium Phosphorus NT-Pro-B Natriuret Pep Albumin 07/19/19 07/19/19 07/19/19 05:31 05:31 06:11 WBC RBC 3.48 L Hgb Hct 30.1 L RDW 17.5 H Plt Count 599 H Lymph % (Auto) [facility] % (Auto) [facility] # Seg Neutrophils % Seg Neuts % (Manual) 80.0 H Seg Neutrophils # Seg Neutrophils # Man Monocytes # (Manual) ABG pH ABG pO2 ABG HCO3 ABG O2 Saturation ABG Base Excess ABG Hemoglobin Oxyhemoglobin Sodium Chloride 93.6 L Carbon Dioxide BUN 81 H Creatinine 3.7 H D Glucose 234 H POC Glucose 204 H Hemoglobin A1c Calcium 10.4 H Phosphorus NT-Pro-B Natriuret Pep Albumin 07/19/19 07/19/19 07/20/19 12:19 23:46 05:01 WBC RBC 3.13 L Hgb 8.9 L Hct 26.7 L RDW 17.4 H Plt Count 552 H Lymph % (Auto) [facility] % (Auto) [facility] # Seg Neutrophils % Seg Neuts % (Manual) Seg Neutrophils # Seg Neutrophils # Man Monocytes # (Manual) ABG pH ABG pO2 ABG HCO3 ABG O2 Saturation ABG Base Excess ABG Hemoglobin Oxyhemoglobin Sodium Chloride Carbon Dioxide BUN Creatinine Glucose POC Glucose 187 H 143 H Hemoglobin A1c Calcium Phosphorus NT-Pro-B Natriuret Pep Albumin 07/20/19 07/20/19 07/20/19 05:01 06:42 08:18 WBC RBC Hgb Hct RDW Plt Count Lymph % (Auto) [facility] % (Auto) [facility] # Seg Neutrophils % Seg Neuts % (Manual) Seg Neutrophils # Seg Neutrophils # Man Monocytes # (Manual) ABG pH ABG pO2 ABG HCO3 ABG O2 Saturation ABG Base Excess ABG Hemoglobin Oxyhemoglobin Sodium 134 L Chloride 88.4 L Carbon Dioxide 21 L BUN 110 H Creatinine 5.1 H Glucose 168 H POC Glucose 167 H 147 H Hemoglobin A1c Calcium Phosphorus NT-Pro-B Natriuret Pep Albumin 07/20/19 07/20/19 07/20/19 11:41 18:23 23:24 WBC RBC Hgb Hct RDW Plt Count Lymph % (Auto) [facility] % (Auto) [facility] # Seg Neutrophils % Seg Neuts % (Manual) Seg Neutrophils # Seg Neutrophils # Man Monocytes # (Manual) ABG pH ABG pO2 ABG HCO3 ABG O2 Saturation ABG Base Excess ABG Hemoglobin Oxyhemoglobin Sodium Chloride Carbon Dioxide BUN Creatinine Glucose POC Glucose 202 H 180 H 181 H Hemoglobin A1c Calcium Phosphorus NT-Pro-B Natriuret Pep Albumin 07/21/19 07/21/19 07/21/19 05:56 12:17 18:46 WBC RBC Hgb Hct RDW Plt Count Lymph % (Auto) [facility] % (Auto) [facility] # Seg Neutrophils % Seg Neuts % (Manual) Seg Neutrophils # Seg Neutrophils # Man Monocytes # (Manual) ABG pH ABG pO2 ABG HCO3 ABG O2 Saturation ABG Base Excess ABG Hemoglobin Oxyhemoglobin Sodium Chloride Carbon Dioxide BUN Creatinine Glucose POC Glucose 147 H 278 H 149 H Hemoglobin A1c Calcium Phosphorus NT-Pro-B Natriuret Pep Albumin 07/22/19 07/22/19 07/22/19 00:09 05:27 11:48 WBC RBC Hgb Hct RDW Plt Count Lymph % (Auto) [facility] % (Auto) [facility] # Seg Neutrophils % Seg Neuts % (Manual) Seg Neutrophils # Seg Neutrophils # Man Monocytes # (Manual) ABG pH ABG pO2 ABG HCO3 ABG O2 Saturation ABG Base Excess ABG Hemoglobin Oxyhemoglobin Sodium Chloride Carbon Dioxide BUN Creatinine Glucose POC Glucose 253 H 145 H 250 H Hemoglobin A1c Calcium Phosphorus NT-Pro-B Natriuret Pep Albumin Allied health notes reviewed: RT
[2019-07-22] MEDS: amLODIPine 10 MG TAB PO SCH (15:39)
[2019-07-22] MEDS: carvediloL 25 MG TAB PO SCH ×2 (15:39→23:53)
[2019-07-22] MEDS: EPOETIN ALFA 10,000 UNIT/1 ML INJ SUB-Q SCH (21:10)
[2019-07-23] MEDS: hydrALAZINE 25 MG TAB PO SCH ×3 (05:20→21:23)
[2019-07-23 05:23] LABS: INR 1.02 (0.87-1.13)
[2019-07-23] MEDS: INSULIN LISPRO 100 UNIT/ML SUB-Q SCH ×3 (06:39→18:46)
--- NOTE | 2019-07-23 09:13 | Progress Note ---
Assessment and Plan Assessment and plan: Sepsis Source is unclear. Etiology may be secondary to pneumonia versus minimal cellulitis around sacral decubitus. Complted antibiotics Acute hypoxic respiratory failure -Continue mechanical ventilation per pulmonary. -Continue PSVT trials daily -Etiology secondary to CHF versus pneumonia. -For Trach and PEG to be done by Surg within next 1-2 days Toxic metabolic encephalopathy -Neuro checks -Continue to treat underlying causes. ESRD on HD -M/W/F -Avoid nephrotoxic agents -Renal dose all meds -Nephrology following Chronic Congestive heart Failure -Monitor input and output. -Cardiology reported no evidence of volume overload Hypertension -Continue to monitor BP -Patient is normotensive off blood pressure medications. Insulin-dependent diabetes -POC BG monitoring -SSI coverage prn Hx Seizure -Continue anticonvulsant meds -Seizure precautions. Sacral decubitus ulcer CT non contrasted without evidence of fluid collection or osteomyelitis. DVT PPX -On Heparin Disposition. Discussed with case management possibility of LTAC For Trach and PEG within 1-2 days The high probability of a clinically significant, sudden or life threatening deterioration of the [respiratory] system(s) required my full and direct attenti on, intervention and personal management. The aggregate critical care time was [36] minutes. This time is in addition to time spent performing reported procedures but includes the following: [x] Data Review and interpretation [x] Patient assessment and monitoring of vital signs [x] Documentation [x] Medication orders and management History Interval history: Patient still intubated, Hospitalist Physical - Physical exam Narrative exam: GEN: Not in acute distress, intubated, on vent HEENT: Normocephalic, atraumatic, Neck: supple, No JVD Lungs: Bilateral rhonchi, heart;S1 and S2 reg, no murmurs Abd:soft, non tender, non distended, normal bowel sounds Ext: No edema, no clubbing, no cyanosis Neuro: Intubated, sedated - Constitutional Vitals: Temp Pulse Resp BP Pulse Ox 97.4 F L 77 17 114/45 100 07/23/19 00:00 07/23/19 09:00 07/23/19 09:00 07/23/19 09:00 07/23/19 09:00 General appearance: Present: other (intubated on the vent) MATT score - Matt Score Age > 65: (0) No Aspirin use within the Past 7 Days: (0) No 3 or more CAD Risk Factors: (1) Yes 2 or more Angina events in past 24 hrs: (0) No Known CAD with more than 50% Stenosis: (0) No Elevated Cardiac Markers: (1) Yes ST Deviation Greater than 0.5mm: (0) No MATT Score: 2 Results - Labs CBC & Chem 7: 07/20/19 05:01 07/20/19 05:01 Labs: Laboratory Last Values WBC 9.1 K/mm3 (4.5-11.0) 07/20/19 05:01 RBC 3.13 M/mm3 (3.65-5.03) L 07/20/19 05:01 Hgb 8.9 gm/dl (10.1-14.3) L 07/20/19 05:01 Hct 26.7 % (30.3-42.9) L 07/20/19 05:01 MCV 86 fl (79-97) 07/20/19 05:01 MCH 29 pg (28-32) 07/20/19 05:01 MCHC 33 % (30-34) 07/20/19 05:01 RDW 17.4 % (13.2-15.2) H 07/20/19 05:01 Plt Count 552 K/mm3 (140-440) H 07/20/19 05:01 Lymph % (Auto) 24.3 % (13.4-35.0) 07/20/19 05:01 [place] % (Auto) 4.6 % (0.0-7.3) 07/20/19 05:01 Eos % (Auto) 3.2 % (0.0-4.3) 07/20/19 05:01 Baso % (Auto) 0.4 % (0.0-1.8) 07/20/19 05:01 Lymph # 2.2 K/mm3 (1.2-5.4) 07/20/19 05:01 [place] # 0.4 K/mm3 (0.0-0.8) 07/20/19 05:01 Eos # 0.3 K/mm3 (0.0-0.4) 07/20/19 05:01 Baso # 0.0 K/mm3 (0.0-0.1) 07/20/19 05:01 Add Manual Diff Complete 07/19/19 05:31 Total Counted 100 07/19/19 05:31 Seg Neutrophils % 67.5 % (40.0-70.0) 07/20/19 05:01 Seg Neuts % (Manual) 80.0 % (40.0-70.0) H 07/19/19 05:31 Band Neutrophils % 1.0 % 07/19/19 05:31 Lymphocytes % (Manual) 16.0 % (13.4-35.0) 07/19/19 05:31 Reactive Lymphs % (Man) 0 % 07/19/19 05:31 Monocytes % (Manual) 3.0 % (0.0-7.3) 07/19/19 05:31 Eosinophils % (Manual) 0 % (0.0-4.3) 07/19/19 05:31 Basophils % (Manual) 0 % (0.0-1.8) 07/19/19 05:31 Metamyelocytes % 0 % 07/19/19 05:31 Myelocytes % 0 % 07/19/19 05:31 Promyelocytes % 0 % 07/19/19 05:31 Blast Cells % 0 % 07/19/19 05:31 Nucleated RBC % Not Reportable 07/19/19 05:31 Seg Neutrophils # 6.1 K/mm3 (1.8-7.7) 07/20/19 05:01 Seg Neutrophils # Man 7.4 K/mm3 (1.8-7.7) 07/19/19 05:31 Band Neutrophils # 0.1 K/mm3 07/19/19 05:31 Lymphocytes # (Manual) 1.5 K/mm3 (1.2-5.4) 07/19/19 05:31 Abs React Lymphs (Man) 0.0 K/mm3 07/19/19 05:31 Monocytes # (Manual) 0.3 K/mm3 (0.0-0.8) 07/19/19 05:31 Eosinophils # (Manual) 0.0 K/mm3 (0.0-0.4) 07/19/19 05:31 Basophils # (Manual) 0.0 K/mm3 (0.0-0.1) 07/19/19 05:31 Metamyelocytes # 0.0 K/mm3 07/19/19 05:31 Myelocytes # 0.0 K/mm3 07/19/19 05:31 Promyelocytes # 0.0 K/mm3 07/19/19 05:31 Blast Cells # 0.0 K/mm3 07/19/19 05:31 WBC Morphology Not Reportable 07/19/19 05:31 Hypersegmented Neuts Not Reportable 07/19/19 05:31 Hyposegmented Neuts Not Reportable 07/19/19 05:31 Hypogranular Neuts Not Reportable 07/19/19 05:31 Smudge Cells Not Reportable 07/19/19 05:31 Toxic Granulation Not Reportable 07/19/19 05:31 Toxic Vacuolation Not Reportable 07/19/19 05:31 Dohle Bodies Not Reportable 07/19/19 05:31 Pelger-Huet Anomaly Not Reportable 07/19/19 05:31 Andrei Rods Not Reportable 07/19/19 05:31 Platelet Estimate Consistent w auto 07/19/19 05:31 Clumped Platelets Not Reportable 07/19/19 05:31 Plt Clumps, EDTA Not Reportable 07/19/19 05:31 Large Platelets Not Reportable 07/19/19 05:31 Giant Platelets Not Reportable 07/19/19 05:31 Platelet Satelliting Not Reportable 07/19/19 05:31 Plt Morphology Comment Not Reportable 07/19/19 05:31 RBC Morphology Not Reportable 07/19/19 05:31 Dimorphic RBCs Not Reportable 07/19/19 05:31 Polychromasia Not Reportable 07/19/19 05:31 Hypochromasia Not Reportable 07/19/19 05:31 Poikilocytosis Not Reportable 07/19/19 05:31 Anisocytosis 1+ 07/19/19 05:31 Microcytosis Not Reportable 07/19/19 05:31 Macrocytosis Not Reportable 07/19/19 05:31 Spherocytes Not Reportable 07/19/19 05:31 Pappenheimer Bodies Not Reportable 07/19/19 05:31 Sickle Cells Not Reportable 07/19/19 05:31 Target Cells Not Reportable 07/19/19 05:31 Tear Drop Cells Not Reportable 07/19/19 05:31 Ovalocytes Not Reportable 07/19/19 05:31 Stomatocytes Rare 07/19/19 05:31 Helmet Cells Not Reportable 07/19/19 05:31 Nye-Whittlesey Bodies Not Reportable 07/19/19 05:31 [place] Rings Not Reportable 07/19/19 05:31 [place] Cells Not Reportable 07/19/19 05:31 Bite Cells Not Reportable 07/19/19 05:31 Crenated Cell Not Reportable 07/19/19 05:31 Elliptocytes Not Reportable 07/19/19 05:31 Acanthocytes (Spur) Not Reportable 07/19/19 05:31 Rouleaux Not Reportable 07/19/19 05:31 Hemoglobin C Crystals Not Reportable 07/19/19 05:31 Schistocytes Not Reportable 07/19/19 05:31 Malaria parasites Not Reportable 07/19/19 05:31 Tristen Bodies Not Reportable 07/19/19 05:31 Hem Pathologist Commnt No 07/19/19 05:31 PT 13.5 Sec. (12.2-14.9) 07/23/19 04:41 INR 1.02 (0.87-1.13) 07/23/19 04:41 ABG pH 7.425 pH Units (7.350-7.450) 07/13/19 05:50 ABG pCO2 42.9 mm Hg 07/13/19 05:50 ABG pO2 110.8 mm Hg (80.0-90.0) H 07/13/19 05:50 ABG HCO3 27.5 mmol/L (20.0-26.0) H 07/13/19 05:50 ABG O2 Saturation 98.0 % (95.0-99.0) 07/13/19 05:50 ABG O2 Content 13.7 (0.0-44) 07/13/19 05:50 ABG Base Excess 2.8 mmol/L (-2.0-3.0) 07/13/19 05:50 ABG Hemoglobin 10.0 gm/dl (12.0-16.0) L 07/13/19 05:50 ABG Carboxyhemoglobin 1.4 % (0.0-5.0) 07/13/19 05:50 ABG Methemoglobin 0.5 % (0.0-1.5) 07/13/19 05:50 Oxyhemoglobin 96.2 % (95.0-99.0) 07/13/19 05:50 FiO2 40 % 07/13/19 05:50 Sodium 134 mmol/L (137-145) L 07/20/19 05:01 Potassium 4.9 mmol/L (3.6-5.0) 07/20/19 05:01 Chloride 88.4 mmol/L (98-107) L 07/20/19 05:01 Carbon Dioxide 21 mmol/L (22-30) L 07/20/19 05:01 Anion Gap 30 mmol/L 07/20/19 05:01 BUN 110 mg/dL (7-17) H 07/20/19 05:01 Creatinine 5.1 mg/dL (0.7-1.2) H 07/20/19 05:01 Estimated GFR 9 ml/min 07/20/19 05:01 BUN/Creatinine Ratio 22 % 07/20/19 05:01 Glucose 168 mg/dL (65-100) H 07/20/19 05:01 POC Glucose 227 (70-105) H 07/23/19 06:40 Hemoglobin A1c 7.0 % (4-6) H 07/03/19 01:00 Lactic Acid 1.20 mmol/L (0.7-2.0) 07/03/19 04:13 Calcium 10.0 mg/dL (8.4-10.2) 07/20/19 05:01 Phosphorus 2.60 mg/dL (2.5-4.5) D 07/09/19 04:29 Total Bilirubin 0.30 mg/dL (0.1-1.2) 07/03/19 01:00 AST 22 units/L (5-40) 07/03/19 01:00 ALT 9 units/L (7-56) 07/03/19 01:00 Alkaline Phosphatase 101 units/L (35-129) 07/03/19 01:00 Ammonia 35.0 umol/L (25-60) 07/03/19 01:58 NT-Pro-B Natriuret Pep > 86717 pg/mL (0-900) H 07/03/19 01:00 Total Protein 7.0 g/dL (6.3-8.2) 07/03/19 01:00 Albumin 2.5 g/dL (3.9-5) L 07/03/19 01:00 Albumin/Globulin Ratio 0.6 % 07/03/19 01:00 TSH 2.600 mlU/mL (0.270-4.200) 07/03/19 01:00 Urine Color Yellow (Yellow) 07/03/19 Unknown Urine Turbidity Clear (Clear) 07/03/19 Unknown Urine pH 6.0 (5.0-7.0) 07/03/19 Unknown Ur Specific [place] 1.012 (1.003-1.030) 07/03/19 Unknown Urine Protein >500 mg/dL (Negative) 07/03/19 Unknown Urine Glucose (UA) >=500 mg/dL (Negative) 07/03/19 Unknown Urine Ketones Neg mg/dL (Negative) 07/03/19 Unknown Urine Blood Neg (Negative) 07/03/19 Unknown Urine Nitrite Neg (Negative) 07/03/19 Unknown Ur Reducing Substances Not Reportable 07/03/19 Unknown Urine Bilirubin Neg (Negative) 07/03/19 Unknown Urine Ictotest Not Reportable 07/03/19 Unknown Urine Urobilinogen < 2.0 mg/dL (<2.0) 07/03/19 Unknown Ur Leukocyte Esterase Neg (Negative) 07/03/19 Unknown Urine WBC (Auto) 1.0 /HPF (0.0-6.0) 07/03/19 Unknown Urine RBC (Auto) 2.0 /HPF (0.0-6.0) 07/03/19 Unknown U Epithel Cells (Auto) < 1.0 /HPF (0-13.0) 07/03/19 Unknown Urine Mucus Few /HPF 07/03/19 Unknown Random Vancomycin 18.7 ug/mL (0-40.0) 07/08/19 04:38 Influenza A (Rapid) Negative (Negative) 07/05/19 14:30 Influenza B (Rapid) Negative (Negative) 07/05/19 14:30 Active Medications - Current Medications Current Medications: Generic Name Dose Route Start Last Admin Trade Name Freq PRN Reason Stop Dose Admin Acetaminophen 650 mg 07/08/19 10:00 07/22/19 03:48 Tylenol [place] 650 mg Q4H PRN Administration Pain, Mild (1-3) Albumin Human 25 gm 07/06/19 13:42 07/20/19 14:39 Alburx 25% (Albumin) IV 25 gm FEDE PRN Administration Hypotension Amlodipine Besylate 10 mg 07/17/19 13:00 07/22/19 15:39 Amlodipine PO Not Given QDAY YANG Lipase/Protease/Amylase 1 each 07/05/19 16:27 Pancredelfino [place] 10,500 Unit FEEDTUBE PRN PRN For Clogged Feeding Tube Carvedilol 25 mg 07/17/19 22:00 07/22/19 23:53 Coreg PO Not Given BID YANG Cinacalcet 30 mg 07/18/19 10:00 07/22/19 09:10 Sensipar PO 30 mg QDAY YANG Administration Dextrose 0 ml 07/03/19 04:34 D50w (25gm) Syringe IV Q30MIN PRN Hypoglycemia Protocol Docusate Sodium 100 mg 07/15/19 10:00 07/22/19 22:32 Colace FEEDTUBE 100 mg BID YANG Administration Epoetin Jj 10,000 unit 07/22/19 13:00 07/22/19 21:10 Procrit SUB-Q 10,000 unit FEDE YANG Administration Famotidine 20 mg 07/07/19 10:00 07/22/19 09:10 Pepcid PO 20 mg DAILY YANG Administration Heparin Sodium (Porcine) 5,000 unit 07/03/19 10:00 07/22/19 22:32 Heparin SUB-Q 5,000 unit Q12HR YANG Administration Hydralazine HCl 50 mg 07/17/19 14:00 07/23/19 05:20 Apresoline PO 50 mg Q8HR YANG Administration Hydrophilic Ointment 1 applic 07/03/19 00:53 Vaseline Lip Therapy TP Q2HR PRN Dry Lips Fentanyl Citrate 2,000 mcg in 100 mls @ 2.608 mls/hr 07/03/19 01:00 07/04/19 18:10 Fentanyl Drip Premix IV Infused TITR [facility] Titration Protocol 1 MCG/KG/HR Sodium Chloride 100 mls @ 999 mls/hr 07/05/19 13:41 Nacl 0.9% IV FEDE PRN Hypotension Insulin Glargine 18 units 07/10/19 13:43 07/22/19 09:14 Lantus SUB-Q 18 units DAILY YANG Administration Insulin Human Lispro 0 unit 07/03/19 06:00 07/23/19 06:39 Humalog SUB-Q 4 unit Q6HR YANG Administration Protocol Multi-Ingred Cream/Lotion/Oil/Oint 1 applic 07/03/19 00:53 Artificial Tears Ophth Oint OU Q4HR PRN Dry Eye(s) Risperidone 0.5 mg 07/20/19 22:00 07/22/19 22:33 Risperdal PO 0.5 mg BID YANG Administration Simple Syrup 15 ml 07/05/19 16:27 Simple Syrup FEEDTUBE PRN PRN Hypoglycemia Simple Syrup 30 ml 07/05/19 16:27 Simple Syrup FEEDTUBE PRN PRN Hypoglycemia Sodium Bicarbonate 325 mg 07/05/19 16:27 Sodium Bicarbonate FEEDTUBE PRN PRN For Clogged Feeding Tube Sodium Chloride 10 ml 07/03/19 10:00 07/22/19 23:57 Sodium Chloride Flush Syringe 10 Ml IV 10 ml BID YANG Administration Sodium Chloride 10 ml 07/03/19 04:34 07/05/19 10:42 Sodium Chloride Flush Syringe 10 Ml IV 10 ml PRN PRN Administration LINE FLUSH Valproic Acid 500 mg 07/17/19 22:00 07/22/19 22:32 Depakene Liq FEEDTUBE 500 mg BID YANG Administration Nutrition/Malnutrition Assess - Dietary Evaluation Nutrition/Malnutrition Findings: Nutrition Notes Start: 07/06/19 08:50 Freq: Status: Active Protocol: Document 07/21/19 11:23 CT (Rec: 07/21/19 11:30 CT [id number]) Co-Sign 07/21/19 11:23 LP Nutrition Notes Initial or Follow up Reassessment Current Diagnosis CKD (stage V CKD),Decubitus( Pressure Ulcer),Diabetes,Heart Failure,Respiratory Failure Other Pertinent Diagnosis on HD, Sacral PU, seizures, bipolar disorder, metabolic encephalopathy Current Diet Nepro 1.8 at 35 ml/hr Labs/Tests Na 134 BUN 110 Cr 5.1 Pertinent Medications Heparin Bumex Lantus Height 5 ft 2 in Weight 53.1 kg [place] Body Weight (kg) 50.00 BMI 21.4 Weight change and time frame wt gain likely d/t fluid Weight Status Appropriate Subjective/Other Information FU for tolerance. Nepro 1.8 running at 35ml/hr. Percent of energy/protein needs met: 100%/100% Burn Absent Trauma Absent GI Symptoms None Current % PO Negligible Minimum of two criteria No physical signs of malnutrition #2 Nutrition Diagnosis Increased nutrient needs ( specify in comment below) Comments: Protein Diagnosis Progress(for reassessment Continues documentation) #1 Nutrition Diagnosis Inadequate oral intake Diagnosis Progress(for reassessment Continues documentation) Is patient on ventilator? Yes Is Patient Ambulatory and/or Out of Bed No REE-([facility]-confined to bed) [phone] Calculation Used for Recommendations [facility] Additional Notes Protein: 58 -96g (1.2-2g/kg) Fluid: 1-1.5 L/ day Nutrition Intervention Change Diet Order: TF Nutrition Support: Nepro 1.8 at 35ml/hr Change flush to 100 ml q4h. Kcal 1,512 Protein (gm) 68 Fluid (mL) 611 Goal #1 TF tolerance Goal #2 Wound Healing Anticipated Discharge Needs: unable to determine at this time Follow-Up By: 07/28/19 Additional Comments Follow up for TF at goal rate
[2019-07-23] MEDS: INSULIN GLARGINE 100 UNITS/ML SUB-Q SCH (10:39)
[2019-07-23] MEDS: amLODIPine 10 MG TAB PO SCH (10:39)
[2019-07-23] MEDS: risperiDONE 0.25 MG TAB PO SCH ×2 (10:39→21:23)
[2019-07-23] MEDS: VALPROIC ACID 250 MG/5 ML ORAL LIQD FEEDTUBE SCH ×2 (10:39→21:23)
[2019-07-23] MEDS: FAMOTIDINE 20 MG TAB PO SCH (10:39)
[2019-07-23] MEDS: CINACALCET 30 MG TAB PO SCH (10:39)
[2019-07-23] MEDS: DOCUSATE SODIUM 100 MG/10 ML ORAL LIQD FEEDTUBE SCH ×2 (10:39→21:23)
[2019-07-23] MEDS: HEPARIN 5,000 UNIT/1 ML VIAL SUB-Q SCH ×2 (10:39→21:23)
[2019-07-23] MEDS: carvediloL 25 MG TAB PO SCH ×2 (10:40→21:23)
--- NOTE | 2019-07-23 11:32 | Progress Note ---
Assessment and Plan Acute hypoxemic respiratory failure Toxic metabolic encephalopathy Severe Sepsis ESRD on HD Congestive heart Failure Accelerated Hypertension H/O Seizure (AMS remains a rate limiting step to extubation at this point but still not meeting other criteria also) - increased Lantus to 18 units daily - continue Daily SAT's and SBT assessment as tolerated - continue HD/UF per nephrology rec's for toxin and volume clearance - prn sedation target is RASS 0 to -1 - VAP bundle addressed (aspiration precautions, HOB>40 degrees) - continue lung protective strategies - continue to wean FiO2 for O2 sats >90% - continue bronchodilators with pulmonary hygiene per RT - continue Reglan re: episode of high resuiduals and tube feeds being held - continue Lantus - continue prn albuterol nebs - continue enteral nutrition at goal rate as tolerated - AED's per neurology recommendations - continue Empiric antibiotics therapies (de-escalate based on cultures and clinical condition) - ID evaluation ongoing - VTE prophylaxis with heparin SQ - continue stress ulcer prophylaxis with Famotidine - accuchecks with glycemic control for SSI (While critically ill target blood glucose of 140-180 mg/dL; avoid hypoglycemia) - mobility protocols for pressure ulcer prevention - Monitor hemodynamics closely - Fluid restrictive strategies as tolerated by hemodynamics and by her renal function (patient has a history of cardiomyopathy and has elevated BNP at this time) - continue to avoid nephrotoxins, dose all medications fro CrCL and GFR - Monitor electrolyte profile closely and replete as indicated - Chronic home medications, resume as clinically indicated - continue other care per attending / other consultants ... re-evaluate in am & prn CONDITION: CRITICAL PROGNOSIS: GUARDED CODE STATUS: FULL CODE The high probability of a clinically significant, sudden or life-threatening deterioration of the [respiratory, cardiovascular, neurology, renal] system(s) required my full and direct attention, intervention and personal management. The aggregate critical care time was [34] minutes without overlap. Time includes spent on; [x] Data Review and interpretation [x] Patient assessment and monitoring of vital signs [x] Documentation [x] Medication orders and management Subjective Date of service: 07/23/19 Principal diagnosis: Acute hypoxemic resp failure; AMS; Severe Sepsis; ESRD; CHF; HTN; Seizure Interval history: Patient is seen today for: Acute hypoxemic respiratory failure; Toxic metabolic encephalopathy; Severe Sepsis; ESRD on HD; CHF; Accelerated Hypertension; H/O Seizure Seen and examined at bedside; 24hour events reviewed; nursing and respiratory care staff consulted; no adverse overnight events reported to me; resting peacefully in bed; Objective Vital Signs - 12hr 07/22/19 07/23/19 07/23/19 23:50 00:00 00:10 Temperature 97.4 F L Pulse Rate 70 71 71 Pulse Rate [ 70 From Monitor] Respiratory 12 13 Rate Blood Pressure 120/45 117/49 125/47 O2 Sat by Pulse 100 100 100 Oximetry 07/23/19 07/23/19 07/23/19 01:00 02:00 03:00 Temperature Pulse Rate 70 72 76 Pulse Rate [ From Monitor] Respiratory 14 12 14 Rate Blood Pressure 126/45 124/43 119/46 O2 Sat by Pulse 100 100 99 Oximetry 07/23/19 07/23/19 07/23/19 04:00 04:13 05:00 Temperature Pulse Rate 73 71 72 Pulse Rate [ 70 From Monitor] Respiratory 14 12 Rate Blood Pressure 129/45 132/49 134/51 O2 Sat by Pulse 100 100 100 Oximetry 07/23/19 07/23/19 07/23/19 05:20 06:00 06:30 Temperature Pulse Rate 72 73 76 Pulse Rate [ From Monitor] Respiratory 12 14 Rate Blood Pressure 138/51 138/50 126/54 O2 Sat by Pulse 100 100 Oximetry 07/23/19 07/23/19 07/23/19 06:45 07:00 07:15 Temperature Pulse Rate 77 80 80 Pulse Rate [ From Monitor] Respiratory 17 19 14 Rate Blood Pressure 138/55 130/54 130/52 O2 Sat by Pulse 100 100 99 Oximetry 07/23/19 07/23/19 07/23/19 07:30 07:45 08:00 Temperature 97.5 F L Pulse Rate 78 78 79 Pulse Rate [ 79 From Monitor] Respiratory 14 13 15 Rate Blood Pressure 131/50 121/55 125/49 O2 Sat by Pulse 99 99 100 Oximetry 07/23/19 07/23/19 07/23/19 08:11 08:15 08:30 Temperature Pulse Rate 73 78 79 Pulse Rate [ From Monitor] Respiratory 14 14 Rate Blood Pressure 138/50 124/47 129/48 O2 Sat by Pulse 100 99 100 Oximetry 07/23/19 07/23/19 07/23/19 08:45 09:00 09:15 Temperature Pulse Rate 76 77 79 Pulse Rate [ From Monitor] Respiratory 12 17 14 Rate Blood Pressure 122/50 114/45 124/60 O2 Sat by Pulse 99 100 100 Oximetry 07/23/19 07/23/19 07/23/19 09:30 09:45 10:00 Temperature Pulse Rate 74 76 78 Pulse Rate [ From Monitor] Respiratory 12 13 14 Rate Blood Pressure 118/38 114/46 116/47 O2 Sat by Pulse 100 100 100 Oximetry 07/23/19 07/23/19 10:39 10:40 Temperature Pulse Rate 76 76 Pulse Rate [ From Monitor] Respiratory Rate Blood Pressure 116/51 116/51 O2 Sat by Pulse Oximetry Constitutional: appears uncomfortable, other (middle aged thin female, normocephalic with mildly increased resp effort on MVS) Eyes: non-icteric ENT: oropharynx dry, other (ETT 23 cm JORY) Neck: supple, no lymphadenopathy, no JVD Effort: mildly labored Ascultation: Bilateral: diminished breath sounds, rhonchi Percussion: Bilateral: not dull Cardiovascular: regular rate and rhythm Gastrointestinal: normoactive bowel sounds, soft, non-tender, non-distended Integumentary: normal, decubitus ulcer (sacral) Extremities: no cyanosis, no edema, pink and warm, pulses normal Neurologic: unable to assess Psychiatric: other (unable to assess re: AMS) CBC and BMP: 07/20/19 05:01 07/20/19 05:01 ABG, PT/INR, D-dimer: ABG ABG pH 7.425 pH Units (7.350-7.450) 07/13/19 05:50 ABG pCO2 42.9 mm Hg 07/13/19 05:50 ABG pO2 110.8 mm Hg (80.0-90.0) H 07/13/19 05:50 ABG O2 Saturation 98.0 % (95.0-99.0) 07/13/19 05:50 PT/INR, D-dimer PT 13.5 Sec. (12.2-14.9) 07/23/19 04:41 INR 1.02 (0.87-1.13) 07/23/19 04:41 Abnormal lab findings: Abnormal Labs 07/03/19 07/03/19 07/03/19 01:00 01:00 01:00 WBC 17.9 H RBC Hgb Hct RDW 17.8 H Plt Count Lymph % (Auto) 11.7 L Page % (Auto) Page # 1.0 H Seg Neutrophils % 82.1 H Seg Neuts % (Manual) Seg Neutrophils # 14.7 H Seg Neutrophils # Man Monocytes # (Manual) ABG pH ABG pO2 ABG HCO3 ABG O2 Saturation ABG Base Excess ABG Hemoglobin Oxyhemoglobin Sodium Chloride 92.9 L Carbon Dioxide BUN 45 H Creatinine 5.3 H Glucose 229 H POC Glucose Hemoglobin A1c Calcium 10.5 H Phosphorus NT-Pro-B Natriuret Pep > 54576 H Albumin 2.5 L 07/03/19 07/03/19 07/03/19 01:00 01:35 04:30 WBC RBC Hgb Hct RDW Plt Count Lymph % (Auto) Page % (Auto) Page # Seg Neutrophils % Seg Neuts % (Manual) Seg Neutrophils # Seg Neutrophils # Man Monocytes # (Manual) ABG pH 7.555 H 7.489 H ABG pO2 65.4 L 149.9 H ABG HCO3 28.9 H 27.9 H ABG O2 Saturation ABG Base Excess 6.7 H 4.5 H ABG Hemoglobin Oxyhemoglobin 94.0 L Sodium Chloride Carbon Dioxide BUN Creatinine Glucose POC Glucose Hemoglobin A1c 7.0 H Calcium Phosphorus NT-Pro-B Natriuret Pep Albumin 07/03/19 07/03/19 07/03/19 12:10 17:35 23:59 WBC RBC Hgb Hct RDW Plt Count Lymph % (Auto) Page % (Auto) Page # Seg Neutrophils % Seg Neuts % (Manual) Seg Neutrophils # Seg Neutrophils # Man Monocytes # (Manual) ABG pH ABG pO2 ABG HCO3 ABG O2 Saturation ABG Base Excess ABG Hemoglobin Oxyhemoglobin Sodium Chloride Carbon Dioxide BUN Creatinine Glucose POC Glucose 246 H 163 H 112 H Hemoglobin A1c Calcium Phosphorus NT-Pro-B Natriuret Pep Albumin 07/04/19 07/04/19 07/04/19 04:24 04:56 04:56 WBC 17.3 H RBC Hgb Hct RDW 18.0 H Plt Count Lymph % (Auto) 8.7 L Page % (Auto) Page # 0.9 H Seg Neutrophils % 85.1 H Seg Neuts % (Manual) Seg Neutrophils # 14.8 H Seg Neutrophils # Man Monocytes # (Manual) ABG pH 7.496 H ABG pO2 74.0 L ABG HCO3 28.1 H ABG O2 Saturation ABG Base Excess 4.7 H ABG Hemoglobin Oxyhemoglobin 93.9 L Sodium Chloride 95.5 L Carbon Dioxide BUN 26 H Creatinine 3.4 H Glucose 145 H POC Glucose Hemoglobin A1c Calcium Phosphorus NT-Pro-B Natriuret Pep Albumin 07/04/19 07/04/19 07/05/19 07:04 17:56 01:45 WBC RBC Hgb Hct RDW Plt Count Lymph % (Auto) Page % (Auto) Page # Seg Neutrophils % Seg Neuts % (Manual) Seg Neutrophils # Seg Neutrophils # Man Monocytes # (Manual) ABG pH ABG pO2 ABG HCO3 ABG O2 Saturation ABG Base Excess ABG Hemoglobin Oxyhemoglobin Sodium Chloride Carbon Dioxide BUN Creatinine Glucose POC Glucose 162 H 273 H 148 H Hemoglobin A1c Calcium Phosphorus NT-Pro-B Natriuret Pep Albumin 07/05/19 07/05/19 07/05/19 03:07 03:07 05:57 WBC 18.7 H RBC Hgb Hct RDW 17.7 H Plt Count Lymph % (Auto) 7.6 L Page % (Auto) Page # 1.2 H Seg Neutrophils % 84.2 H Seg Neuts % (Manual) Seg Neutrophils # 15.7 H Seg Neutrophils # Man Monocytes # (Manual) ABG pH ABG pO2 ABG HCO3 ABG O2 Saturation ABG Base Excess ABG Hemoglobin Oxyhemoglobin Sodium Chloride 94.7 L 95.6 L Carbon Dioxide 19 L BUN 23 H 26 H Creatinine 2.7 H 2.9 H Glucose 161 H 179 H POC Glucose Hemoglobin A1c Calcium 10.3 H 10.5 H Phosphorus 5.20 H D NT-Pro-B Natriuret Pep Albumin 07/05/19 07/05/19 07/05/19 06:50 07:52 09:06 WBC 16.8 H RBC Hgb Hct RDW 18.1 H Plt Count Lymph % (Auto) 8.0 L Page % (Auto) Page # 1.1 H Seg Neutrophils % 84.4 H Seg Neuts % (Manual) Seg Neutrophils # 14.2 H Seg Neutrophils # Man Monocytes # (Manual) ABG pH ABG pO2 ABG HCO3 ABG O2 Saturation ABG Base Excess ABG Hemoglobin 11.7 L Oxyhemoglobin 94.6 L Sodium Chloride Carbon Dioxide BUN Creatinine Glucose POC Glucose 195 H Hemoglobin A1c Calcium Phosphorus NT-Pro-B Natriuret Pep Albumin 07/05/19 07/05/19 07/06/19 12:26 17:53 01:03 WBC RBC Hgb Hct RDW Plt Count Lymph % (Auto) Page % (Auto) Page # Seg Neutrophils % Seg Neuts % (Manual) Seg Neutrophils # Seg Neutrophils # Man Monocytes # (Manual) ABG pH ABG pO2 ABG HCO3 ABG O2 Saturation ABG Base Excess ABG Hemoglobin Oxyhemoglobin Sodium Chloride Carbon Dioxide BUN Creatinine Glucose POC Glucose 222 H 214 H 217 H Hemoglobin A1c Calcium Phosphorus NT-Pro-B Natriuret Pep Albumin 07/06/19 07/06/19 07/06/19 03:45 04:37 04:37 WBC 15.7 H RBC Hgb Hct RDW 17.9 H Plt Count Lymph % (Auto) 9.3 L Page % (Auto) 8.2 H Page # 1.3 H Seg Neutrophils % 81.5 H Seg Neuts % (Manual) Seg Neutrophils # 12.8 H Seg Neutrophils # Man Monocytes # (Manual) ABG pH ABG pO2 67.1 L ABG HCO3 ABG O2 Saturation 93.3 L ABG Base Excess ABG Hemoglobin Oxyhemoglobin 91.2 L Sodium Chloride 97.5 L Carbon Dioxide 20 L BUN 50 H Creatinine 4.5 H D Glucose 192 H POC Glucose Hemoglobin A1c Calcium Phosphorus 5.80 H NT-Pro-B Natriuret Pep Albumin 07/06/19 07/06/19 07/06/19 06:10 13:47 18:40 WBC RBC Hgb Hct RDW Plt Count Lymph % (Auto) Page % (Auto) Page # Seg Neutrophils % Seg Neuts % (Manual) Seg Neutrophils # Seg Neutrophils # Man Monocytes # (Manual) ABG pH ABG pO2 ABG HCO3 ABG O2 Saturation ABG Base Excess ABG Hemoglobin Oxyhemoglobin Sodium Chloride Carbon Dioxide BUN Creatinine Glucose POC Glucose 214 H 233 H 225 H Hemoglobin A1c Calcium Phosphorus NT-Pro-B Natriuret Pep Albumin 07/07/19 07/07/19 07/07/19 00:11 04:30 05:33 WBC RBC Hgb Hct RDW Plt Count Lymph % (Auto) Page % (Auto) Page # Seg Neutrophils % Seg Neuts % (Manual) Seg Neutrophils # Seg Neutrophils # Man Monocytes # (Manual) ABG pH ABG pO2 113.7 H ABG HCO3 28.6 H ABG O2 Saturation ABG Base Excess 4.0 H ABG Hemoglobin 11.3 L Oxyhemoglobin Sodium Chloride Carbon Dioxide BUN Creatinine Glucose POC Glucose 288 H 204 H Hemoglobin A1c Calcium Phosphorus NT-Pro-B Natriuret Pep Albumin 07/07/19 07/07/19 07/07/19 05:38 05:38 11:39 WBC 15.0 H RBC Hgb Hct RDW 18.3 H Plt Count Lymph % (Auto) 10.9 L Page % (Auto) 8.9 H Page # 1.3 H Seg Neutrophils % 79.6 H Seg Neuts % (Manual) Seg Neutrophils # 11.9 H Seg Neutrophils # Man Monocytes # (Manual) ABG pH ABG pO2 ABG HCO3 ABG O2 Saturation ABG Base Excess ABG Hemoglobin Oxyhemoglobin Sodium Chloride 94.8 L Carbon Dioxide BUN 32 H Creatinine 2.8 H Glucose 236 H POC Glucose 309 H Hemoglobin A1c Calcium 10.6 H Phosphorus NT-Pro-B Natriuret Pep Albumin 07/07/19 07/07/19 07/08/19 18:09 23:30 03:49 WBC RBC Hgb Hct RDW Plt Count Lymph % (Auto) Page % (Auto) Page # Seg Neutrophils % Seg Neuts % (Manual) Seg Neutrophils # Seg Neutrophils # Man Monocytes # (Manual) ABG pH ABG pO2 116.2 H ABG HCO3 27.7 H ABG O2 Saturation ABG Base Excess ABG Hemoglobin 11.2 L Oxyhemoglobin Sodium Chloride Carbon Dioxide BUN Creatinine Glucose POC Glucose 280 H 398 H Hemoglobin A1c Calcium Phosphorus NT-Pro-B Natriuret Pep Albumin 07/08/19 07/08/19 07/08/19 04:38 04:38 05:37 WBC 13.5 H RBC Hgb Hct RDW 18.3 H Plt Count Lymph % (Auto) Page % (Auto) 9.5 H Page # 1.3 H Seg Neutrophils % 75.6 H Seg Neuts % (Manual) Seg Neutrophils # 10.2 H Seg Neutrophils # Man Monocytes # (Manual) ABG pH ABG pO2 ABG HCO3 ABG O2 Saturation ABG Base Excess ABG Hemoglobin Oxyhemoglobin Sodium Chloride 94.9 L Carbon Dioxide BUN 64 H Creatinine 4.2 H Glucose 288 H POC Glucose 270 H Hemoglobin A1c Calcium 10.9 H Phosphorus NT-Pro-B Natriuret Pep Albumin 07/08/19 07/08/19 07/08/19 11:47 17:36 23:23 WBC RBC Hgb Hct RDW Plt Count Lymph % (Auto) Page % (Auto) Page # Seg Neutrophils % Seg Neuts % (Manual) Seg Neutrophils # Seg Neutrophils # Man Monocytes # (Manual) ABG pH ABG pO2 ABG HCO3 ABG O2 Saturation ABG Base Excess ABG Hemoglobin Oxyhemoglobin Sodium Chloride Carbon Dioxide BUN Creatinine Glucose POC Glucose 211 H 259 H 276 H Hemoglobin A1c Calcium Phosphorus NT-Pro-B Natriuret Pep Albumin 07/09/19 07/09/19 07/09/19 04:08 04:29 04:29 WBC 12.8 H RBC Hgb Hct RDW 17.7 H Plt Count Lymph % (Auto) 12.5 L Page % (Auto) 8.4 H Page # 1.1 H Seg Neutrophils % 77.0 H Seg Neuts % (Manual) Seg Neutrophils # 9.9 H Seg Neutrophils # Man Monocytes # (Manual) ABG pH 7.471 H ABG pO2 141.8 H ABG HCO3 32.3 H ABG O2 Saturation ABG Base Excess 7.8 H ABG Hemoglobin 11.3 L Oxyhemoglobin Sodium Chloride 94.1 L Carbon Dioxide BUN 36 H Creatinine 2.6 H Glucose 217 H POC Glucose Hemoglobin A1c Calcium 11.0 H Phosphorus NT-Pro-B Natriuret Pep Albumin 07/09/19 07/09/19 07/09/19 05:25 10:46 13:07 WBC RBC Hgb Hct RDW Plt Count Lymph % (Auto) Page % (Auto) Page # Seg Neutrophils % Seg Neuts % (Manual) Seg Neutrophils # Seg Neutrophils # Man Monocytes # (Manual) ABG pH ABG pO2 113.2 H ABG HCO3 30.9 H ABG O2 Saturation ABG Base Excess 6.0 H ABG Hemoglobin 10.5 L Oxyhemoglobin Sodium Chloride Carbon Dioxide BUN Creatinine Glucose POC Glucose 190 H 315 H Hemoglobin A1c Calcium Phosphorus NT-Pro-B Natriuret Pep Albumin 07/09/19 07/09/19 07/10/19 17:59 23:18 04:00 WBC RBC Hgb Hct RDW Plt Count Lymph % (Auto) Page % (Auto) Page # Seg Neutrophils % Seg Neuts % (Manual) Seg Neutrophils # Seg Neutrophils # Man Monocytes # (Manual) ABG pH ABG pO2 77.3 L ABG HCO3 30.4 H ABG O2 Saturation ABG Base Excess 5.1 H ABG Hemoglobin Oxyhemoglobin Sodium Chloride Carbon Dioxide BUN Creatinine Glucose POC Glucose 204 H 199 H Hemoglobin A1c Calcium Phosphorus NT-Pro-B Natriuret Pep Albumin 07/10/19 07/10/19 07/10/19 04:55 04:55 05:39 WBC 23.9 H RBC Hgb Hct RDW 18.1 H Plt Count Lymph % (Auto) Page % (Auto) Page # Seg Neutrophils % Seg Neuts % (Manual) 81.0 H Seg Neutrophils # Seg Neutrophils # Man 19.4 H Monocytes # (Manual) 1.0 H ABG pH ABG pO2 ABG HCO3 ABG O2 Saturation ABG Base Excess ABG Hemoglobin Oxyhemoglobin Sodium 133 L Chloride 88.0 L Carbon Dioxide BUN 64 H Creatinine 3.7 H Glucose 250 H POC Glucose 288 H Hemoglobin A1c Calcium 11.1 H Phosphorus NT-Pro-B Natriuret Pep Albumin 07/10/19 07/10/19 07/10/19 12:02 18:32 23:37 WBC RBC Hgb Hct RDW Plt Count Lymph % (Auto) Page % (Auto) Page # Seg Neutrophils % Seg Neuts % (Manual) Seg Neutrophils # Seg Neutrophils # Man Monocytes # (Manual) ABG pH ABG pO2 ABG HCO3 ABG O2 Saturation ABG Base Excess ABG Hemoglobin Oxyhemoglobin Sodium Chloride Carbon Dioxide BUN Creatinine Glucose POC Glucose 204 H 288 H 189 H Hemoglobin A1c Calcium Phosphorus NT-Pro-B Natriuret Pep Albumin 07/11/19 07/11/19 07/11/19 05:31 06:10 06:10 WBC 16.6 H RBC 3.60 L Hgb Hct RDW 16.8 H Plt Count Lymph % (Auto) Page % (Auto) Page # Seg Neutrophils % Seg Neuts % (Manual) Seg Neutrophils # Seg Neutrophils # Man Monocytes # (Manual) ABG pH ABG pO2 ABG HCO3 ABG O2 Saturation ABG Base Excess ABG Hemoglobin Oxyhemoglobin Sodium 130 L Chloride 87.4 L Carbon Dioxide BUN 47 H Creatinine 2.4 H Glucose 138 H POC Glucose 135 H Hemoglobin A1c Calcium 10.8 H Phosphorus NT-Pro-B Natriuret Pep Albumin 07/11/19 07/11/19 07/11/19 12:28 18:05 23:49 WBC RBC Hgb Hct RDW Plt Count Lymph % (Auto) Page % (Auto) Page # Seg Neutrophils % Seg Neuts % (Manual) Seg Neutrophils # Seg Neutrophils # Man Monocytes # (Manual) ABG pH ABG pO2 ABG HCO3 ABG O2 Saturation ABG Base Excess ABG Hemoglobin Oxyhemoglobin Sodium Chloride Carbon Dioxide BUN Creatinine Glucose POC Glucose 243 H 177 H 163 H Hemoglobin A1c Calcium Phosphorus NT-Pro-B Natriuret Pep Albumin 07/12/19 07/12/19 07/12/19 05:27 05:43 05:43 WBC 15.0 H RBC Hgb Hct RDW 17.5 H Plt Count Lymph % (Auto) Page % (Auto) Page # Seg Neutrophils % Seg Neuts % (Manual) Seg Neutrophils # Seg Neutrophils # Man Monocytes # (Manual) ABG pH ABG pO2 ABG HCO3 ABG O2 Saturation ABG Base Excess ABG Hemoglobin Oxyhemoglobin Sodium 128 L Chloride 85.7 L Carbon Dioxide BUN 76 H Creatinine 3.8 H D Glucose 157 H POC Glucose 156 H Hemoglobin A1c Calcium 10.8 H Phosphorus NT-Pro-B Natriuret Pep Albumin 07/12/19 07/12/19 07/13/19 12:03 18:30 00:03 WBC RBC Hgb Hct RDW Plt Count Lymph % (Auto) Page % (Auto) Page # Seg Neutrophils % Seg Neuts % (Manual) Seg Neutrophils # Seg Neutrophils # Man Monocytes # (Manual) ABG pH ABG pO2 ABG HCO3 ABG O2 Saturation ABG Base Excess ABG Hemoglobin Oxyhemoglobin Sodium Chloride Carbon Dioxide BUN Creatinine Glucose POC Glucose 162 H 183 H 187 H Hemoglobin A1c Calcium Phosphorus NT-Pro-B Natriuret Pep Albumin 07/13/19 07/13/19 07/13/19 05:50 05:56 07:50 WBC 13.5 H RBC 3.37 L Hgb 9.6 L Hct 28.8 L RDW 17.4 H Plt Count Lymph % (Auto) Page % (Auto) Page # Seg Neutrophils % Seg Neuts % (Manual) Seg Neutrophils # Seg Neutrophils # Man Monocytes # (Manual) ABG pH ABG pO2 110.8 H ABG HCO3 27.5 H ABG O2 Saturation ABG Base Excess ABG Hemoglobin 10.0 L Oxyhemoglobin Sodium Chloride Carbon Dioxide BUN Creatinine Glucose POC Glucose 216 H Hemoglobin A1c Calcium Phosphorus NT-Pro-B Natriuret Pep Albumin 07/13/19 07/13/19 07/13/19 07:50 13:18 18:09 WBC RBC Hgb Hct RDW Plt Count Lymph % (Auto) Page % (Auto) Page # Seg Neutrophils % Seg Neuts % (Manual) Seg Neutrophils # Seg Neutrophils # Man Monocytes # (Manual) ABG pH ABG pO2 ABG HCO3 ABG O2 Saturation ABG Base Excess ABG Hemoglobin Oxyhemoglobin Sodium 126 L Chloride 80.8 L Carbon Dioxide 21 L BUN 105 H Creatinine 4.7 H Glucose 215 H POC Glucose 187 H 202 H Hemoglobin A1c Calcium 10.3 H Phosphorus NT-Pro-B Natriuret Pep Albumin 07/13/19 07/13/19 07/14/19 19:44 23:23 04:17 WBC RBC Hgb Hct RDW 17.5 H Plt Count Lymph % (Auto) Page % (Auto) Page # Seg Neutrophils % Seg Neuts % (Manual) Seg Neutrophils # Seg Neutrophils # Man Monocytes # (Manual) ABG pH ABG pO2 ABG HCO3 ABG O2 Saturation ABG Base Excess ABG Hemoglobin Oxyhemoglobin Sodium 133 L D Chloride Carbon Dioxide BUN Creatinine Glucose POC Glucose 167 H Hemoglobin A1c Calcium Phosphorus NT-Pro-B Natriuret Pep Albumin 07/14/19 07/14/19 07/14/19 04:17 05:03 12:12 WBC RBC Hgb Hct RDW Plt Count Lymph % (Auto) Page % (Auto) Page # Seg Neutrophils % Seg Neuts % (Manual) Seg Neutrophils # Seg Neutrophils # Man Monocytes # (Manual) ABG pH ABG pO2 ABG HCO3 ABG O2 Saturation ABG Base Excess ABG Hemoglobin Oxyhemoglobin Sodium 131 L Chloride 88.8 L Carbon Dioxide BUN 47 H Creatinine 2.6 H Glucose 131 H POC Glucose 142 H 246 H Hemoglobin A1c Calcium Phosphorus NT-Pro-B Natriuret Pep Albumin 07/14/19 07/15/19 07/15/19 18:30 00:35 04:51 WBC RBC 3.51 L Hgb 9.9 L Hct 30.0 L RDW 17.6 H Plt Count 510 H Lymph % (Auto) Page % (Auto) Page # Seg Neutrophils % 72.4 H Seg Neuts % (Manual) Seg Neutrophils # Seg Neutrophils # Man Monocytes # (Manual) ABG pH ABG pO2 ABG HCO3 ABG O2 Saturation ABG Base Excess ABG Hemoglobin Oxyhemoglobin Sodium Chloride Carbon Dioxide BUN Creatinine Glucose POC Glucose 114 H 164 H Hemoglobin A1c Calcium Phosphorus NT-Pro-B Natriuret Pep Albumin 07/15/19 07/15/19 07/15/19 04:51 06:21 11:55 WBC RBC Hgb Hct RDW Plt Count Lymph % (Auto) Page % (Auto) Page # Seg Neutrophils % Seg Neuts % (Manual) Seg Neutrophils # Seg Neutrophils # Man Monocytes # (Manual) ABG pH ABG pO2 ABG HCO3 ABG O2 Saturation ABG Base Excess ABG Hemoglobin Oxyhemoglobin Sodium 134 L Chloride 88.7 L Carbon Dioxide BUN 78 H Creatinine 4.0 H D Glucose 141 H POC Glucose 135 H 172 H Hemoglobin A1c Calcium 10.4 H Phosphorus NT-Pro-B Natriuret Pep Albumin 07/15/19 07/15/19 07/15/19 17:46 18:10 23:20 WBC RBC Hgb Hct RDW Plt Count Lymph % (Auto) Page % (Auto) Page # Seg Neutrophils % Seg Neuts % (Manual) Seg Neutrophils # Seg Neutrophils # Man Monocytes # (Manual) ABG pH ABG pO2 ABG HCO3 ABG O2 Saturation ABG Base Excess ABG Hemoglobin Oxyhemoglobin Sodium Chloride Carbon Dioxide BUN Creatinine Glucose POC Glucose 203 H 237 H 184 H Hemoglobin A1c Calcium Phosphorus NT-Pro-B Natriuret Pep Albumin 07/16/19 07/16/19 07/16/19 04:44 04:44 05:44 WBC RBC Hgb Hct RDW 17.5 H Plt Count 605 H Lymph % (Auto) Page % (Auto) Page # Seg Neutrophils % 72.6 H Seg Neuts % (Manual) Seg Neutrophils # Seg Neutrophils # Man Monocytes # (Manual) ABG pH ABG pO2 ABG HCO3 ABG O2 Saturation ABG Base Excess ABG Hemoglobin Oxyhemoglobin Sodium Chloride 93.4 L Carbon Dioxide BUN 46 H Creatinine 2.6 H Glucose 125 H POC Glucose 147 H Hemoglobin A1c Calcium 10.5 H Phosphorus NT-Pro-B Natriuret Pep Albumin 07/16/19 07/16/19 07/16/19 12:17 17:55 18:06 WBC RBC Hgb Hct RDW Plt Count Lymph % (Auto) Page % (Auto) Page # Seg Neutrophils % Seg Neuts % (Manual) Seg Neutrophils # Seg Neutrophils # Man Monocytes # (Manual) ABG pH ABG pO2 ABG HCO3 ABG O2 Saturation ABG Base Excess ABG Hemoglobin Oxyhemoglobin Sodium Chloride Carbon Dioxide BUN Creatinine Glucose POC Glucose 222 H 129 H 121 H Hemoglobin A1c Calcium Phosphorus NT-Pro-B Natriuret Pep Albumin 07/17/19 07/17/19 07/17/19 00:31 03:58 03:58 WBC RBC Hgb Hct RDW 17.7 H Plt Count 647 H Lymph % (Auto) Page % (Auto) 7.7 H Page # Seg Neutrophils % Seg Neuts % (Manual) Seg Neutrophils # Seg Neutrophils # Man Monocytes # (Manual) ABG pH ABG pO2 ABG HCO3 ABG O2 Saturation ABG Base Excess ABG Hemoglobin Oxyhemoglobin Sodium 133 L Chloride 89.4 L Carbon Dioxide BUN 81 H Creatinine 3.5 H Glucose 139 H POC Glucose 195 H Hemoglobin A1c Calcium 10.8 H Phosphorus NT-Pro-B Natriuret Pep Albumin 07/17/19 07/17/19 07/17/19 05:50 13:06 17:50 WBC RBC Hgb Hct RDW Plt Count Lymph % (Auto) Page % (Auto) Page # Seg Neutrophils % Seg Neuts % (Manual) Seg Neutrophils # Seg Neutrophils # Man Monocytes # (Manual) ABG pH ABG pO2 ABG HCO3 ABG O2 Saturation ABG Base Excess ABG Hemoglobin Oxyhemoglobin Sodium Chloride Carbon Dioxide BUN Creatinine Glucose POC Glucose 137 H 176 H 154 H Hemoglobin A1c Calcium Phosphorus NT-Pro-B Natriuret Pep Albumin 07/17/19 07/18/19 07/18/19 23:10 05:15 05:15 WBC RBC Hgb Hct RDW 17.4 H Plt Count 645 H Lymph % (Auto) Page % (Auto) Page # Seg Neutrophils % 73.0 H Seg Neuts % (Manual) Seg Neutrophils # Seg Neutrophils # Man Monocytes # (Manual) ABG pH ABG pO2 ABG HCO3 ABG O2 Saturation ABG Base Excess ABG Hemoglobin Oxyhemoglobin Sodium Chloride 95.8 L Carbon Dioxide BUN 44 H Creatinine 2.3 H Glucose 164 H POC Glucose 186 H Hemoglobin A1c Calcium 10.6 H Phosphorus NT-Pro-B Natriuret Pep Albumin 07/18/19 07/18/19 07/18/19 05:55 10:24 11:57 WBC RBC Hgb Hct RDW Plt Count Lymph % (Auto) Page % (Auto) Page # Seg Neutrophils % Seg Neuts % (Manual) Seg Neutrophils # Seg Neutrophils # Man Monocytes # (Manual) ABG pH ABG pO2 ABG HCO3 ABG O2 Saturation ABG Base Excess ABG Hemoglobin Oxyhemoglobin Sodium Chloride Carbon Dioxide BUN Creatinine Glucose POC Glucose 146 H 161 H 236 H Hemoglobin A1c Calcium Phosphorus NT-Pro-B Natriuret Pep Albumin 07/18/19 07/18/19 07/19/19 18:15 18:34 00:56 WBC RBC Hgb Hct RDW Plt Count Lymph % (Auto) Page % (Auto) Page # Seg Neutrophils % Seg Neuts % (Manual) Seg Neutrophils # Seg Neutrophils # Man Monocytes # (Manual) ABG pH ABG pO2 ABG HCO3 ABG O2 Saturation ABG Base Excess ABG Hemoglobin Oxyhemoglobin Sodium Chloride Carbon Dioxide BUN Creatinine Glucose POC Glucose 110 H 109 H 245 H Hemoglobin A1c Calcium Phosphorus NT-Pro-B Natriuret Pep Albumin 07/19/19 07/19/19 07/19/19 05:31 05:31 06:11 WBC RBC 3.48 L Hgb Hct 30.1 L RDW 17.5 H Plt Count 599 H Lymph % (Auto) Page % (Auto) Page # Seg Neutrophils % Seg Neuts % (Manual) 80.0 H Seg Neutrophils # Seg Neutrophils # Man Monocytes # (Manual) ABG pH ABG pO2 ABG HCO3 ABG O2 Saturation ABG Base Excess ABG Hemoglobin Oxyhemoglobin Sodium Chloride 93.6 L Carbon Dioxide BUN 81 H Creatinine 3.7 H D Glucose 234 H POC Glucose 204 H Hemoglobin A1c Calcium 10.4 H Phosphorus NT-Pro-B Natriuret Pep Albumin 07/19/19 07/19/19 07/20/19 12:19 23:46 05:01 WBC RBC 3.13 L Hgb 8.9 L Hct 26.7 L RDW 17.4 H Plt Count 552 H Lymph % (Auto) Page % (Auto) Page # Seg Neutrophils % Seg Neuts % (Manual) Seg Neutrophils # Seg Neutrophils # Man Monocytes # (Manual) ABG pH ABG pO2 ABG HCO3 ABG O2 Saturation ABG Base Excess ABG Hemoglobin Oxyhemoglobin Sodium Chloride Carbon Dioxide BUN Creatinine Glucose POC Glucose 187 H 143 H Hemoglobin A1c Calcium Phosphorus NT-Pro-B Natriuret Pep Albumin 07/20/19 07/20/19 07/20/19 05:01 06:42 08:18 WBC RBC Hgb Hct RDW Plt Count Lymph % (Auto) Page % (Auto) Page # Seg Neutrophils % Seg Neuts % (Manual) Seg Neutrophils # Seg Neutrophils # Man Monocytes # (Manual) ABG pH ABG pO2 ABG HCO3 ABG O2 Saturation ABG Base Excess ABG Hemoglobin Oxyhemoglobin Sodium 134 L Chloride 88.4 L Carbon Dioxide 21 L BUN 110 H Creatinine 5.1 H Glucose 168 H POC Glucose 167 H 147 H Hemoglobin A1c Calcium Phosphorus NT-Pro-B Natriuret Pep Albumin 07/20/19 07/20/19 07/20/19 11:41 18:23 23:24 WBC RBC Hgb Hct RDW Plt Count Lymph % (Auto) Page % (Auto) Page # Seg Neutrophils % Seg Neuts % (Manual) Seg Neutrophils # Seg Neutrophils # Man Monocytes # (Manual) ABG pH ABG pO2 ABG HCO3 ABG O2 Saturation ABG Base Excess ABG Hemoglobin Oxyhemoglobin Sodium Chloride Carbon Dioxide BUN Creatinine Glucose POC Glucose 202 H 180 H 181 H Hemoglobin A1c Calcium Phosphorus NT-Pro-B Natriuret Pep Albumin 07/21/19 07/21/19 07/21/19 05:56 12:17 18:46 WBC RBC Hgb Hct RDW Plt Count Lymph % (Auto) Page % (Auto) Page # Seg Neutrophils % Seg Neuts % (Manual) Seg Neutrophils # Seg Neutrophils # Man Monocytes # (Manual) ABG pH ABG pO2 ABG HCO3 ABG O2 Saturation ABG Base Excess ABG Hemoglobin Oxyhemoglobin Sodium Chloride Carbon Dioxide BUN Creatinine Glucose POC Glucose 147 H 278 H 149 H Hemoglobin A1c Calcium Phosphorus NT-Pro-B Natriuret Pep Albumin 07/22/19 07/22/19 07/22/19 00:09 05:27 11:48 WBC RBC Hgb Hct RDW Plt Count Lymph % (Auto) Page % (Auto) Page # Seg Neutrophils % Seg Neuts % (Manual) Seg Neutrophils # Seg Neutrophils # Man Monocytes # (Manual) ABG pH ABG pO2 ABG HCO3 ABG O2 Saturation ABG Base Excess ABG Hemoglobin Oxyhemoglobin Sodium Chloride Carbon Dioxide BUN Creatinine Glucose POC Glucose 253 H 145 H 250 H Hemoglobin A1c Calcium Phosphorus NT-Pro-B Natriuret Pep Albumin 07/22/19 07/22/19 07/23/19 17:53 23:43 06:40 WBC RBC Hgb Hct RDW Plt Count Lymph % (Auto) Page % (Auto) Page # Seg Neutrophils % Seg Neuts % (Manual) Seg Neutrophils # Seg Neutrophils # Man Monocytes # (Manual) ABG pH ABG pO2 ABG HCO3 ABG O2 Saturation ABG Base Excess ABG Hemoglobin Oxyhemoglobin Sodium Chloride Carbon Dioxide BUN Creatinine Glucose POC Glucose 154 H 271 H 227 H Hemoglobin A1c Calcium Phosphorus NT-Pro-B Natriuret Pep Albumin Allied health notes reviewed: nursing
--- NOTE | 2019-07-23 11:40 | Event Note ---
Date: 07/23/[address] Beatty. Patient is not ready for extubation and we are in agreement that tracheostomy/PEG tube placement is the next appropriate step. I have scheduled the patient for the procedures on 07/24 at 1330. I have discussed this with the patient's daughter and updated her of the date/time of surgery. Preoperative orders have been placed. Pt to be kept NPO p MN. All labs reviewed.
--- NOTE | 2019-07-23 12:00 | Progress Note ---
Assessment and Plan Acute hypoxic respiratory failure on mechanical ventilation Acute metabolic encephalopathy ESRD on HD HTN Sepsis Hx of seizures DM Type 2 on insulin Hypercalemia Hyponatremia Plan: - no indication for HD today - Assess dialysis needs daily - Epogen dosing for anemia management - Currently Intubated on Vent - as per Pulmonology - Planning on Trach/PEG - Strict I&O - Renally dose meds - This pt undergoes outpatient HD at [facility] every MWF Subjective Date of service: 07/23/19 Principal diagnosis: Acute hypoxemic resp failure; AMS; Severe Sepsis; ESRD; CHF; HTN; Seizure Interval history: intubated, no family at bedside Objective - Vital Signs Vital signs: Vital Signs - 12hr 07/23/19 07/23/19 07/23/19 00:00 00:10 01:00 Temperature 97.4 F L Pulse Rate 71 71 70 Pulse Rate [ 70 From Monitor] Respiratory 13 14 Rate Blood Pressure 117/49 125/47 126/45 O2 Sat by Pulse 100 100 100 Oximetry 07/23/19 07/23/19 07/23/19 02:00 03:00 04:00 Temperature Pulse Rate 72 76 73 Pulse Rate [ 70 From Monitor] Respiratory 12 14 14 Rate Blood Pressure 124/43 119/46 129/45 O2 Sat by Pulse 100 99 100 Oximetry 07/23/19 07/23/19 07/23/19 04:13 05:00 05:20 Temperature Pulse Rate 71 72 72 Pulse Rate [ From Monitor] Respiratory 12 Rate Blood Pressure 132/49 134/51 138/51 O2 Sat by Pulse 100 100 Oximetry 07/23/19 07/23/19 07/23/19 06:00 06:30 06:45 Temperature Pulse Rate 73 76 77 Pulse Rate [ From Monitor] Respiratory 12 14 17 Rate Blood Pressure 138/50 126/54 138/55 O2 Sat by Pulse 100 100 100 Oximetry 07/23/19 07/23/19 07/23/19 07:00 07:15 07:30 Temperature Pulse Rate 80 80 78 Pulse Rate [ From Monitor] Respiratory 19 14 14 Rate Blood Pressure 130/54 130/52 131/50 O2 Sat by Pulse 100 99 99 Oximetry 07/23/19 07/23/19 07/23/19 07:45 08:00 08:11 Temperature 97.5 F L Pulse Rate 78 79 73 Pulse Rate [ 79 From Monitor] Respiratory 13 15 Rate Blood Pressure 121/55 125/49 138/50 O2 Sat by Pulse 99 100 100 Oximetry 07/23/19 07/23/19 07/23/19 08:15 08:30 08:45 Temperature Pulse Rate 78 79 76 Pulse Rate [ From Monitor] Respiratory 14 14 12 Rate Blood Pressure 124/47 129/48 122/50 O2 Sat by Pulse 99 100 99 Oximetry 07/23/19 07/23/19 07/23/19 09:00 09:15 09:30 Temperature Pulse Rate 77 79 74 Pulse Rate [ From Monitor] Respiratory 17 14 12 Rate Blood Pressure 114/45 124/60 118/38 O2 Sat by Pulse 100 100 100 Oximetry 07/23/19 07/23/19 07/23/19 09:45 10:00 10:39 Temperature Pulse Rate 76 78 76 Pulse Rate [ From Monitor] Respiratory 13 14 Rate Blood Pressure 114/46 116/47 116/51 O2 Sat by Pulse 100 100 Oximetry 07/23/19 07/23/19 10:40 11:34 Temperature Pulse Rate 76 76 Pulse Rate [ From Monitor] Respiratory 12 Rate Blood Pressure 116/51 116/51 O2 Sat by Pulse 100 Oximetry - General Appearance General appearance: cachectic, intubated EENT: ATNC, PERRL, mucous membranes dry Neck: no JVD, no carotid bruit Respiratory: Present: Decreased Breath Sounds Cardiology: regular, S1S2 Gastrointestinal: normoactive bowel sounds, no tenderness, no distended Integumentary: no rash, warm and dry Neurologic: other (intubated) Musculoskeletal: other (no edema in BLE) Psychiatric: other (intubated ) - Lab 07/20/19 05:01 07/20/19 05:01 Most recent lab results ABG pH 7.425 pH Units (7.350-7.450) 07/13/19 05:50 ABG pCO2 42.9 mm Hg 07/13/19 05:50 ABG pO2 110.8 mm Hg (80.0-90.0) H 07/13/19 05:50 ABG HCO3 27.5 mmol/L (20.0-26.0) H 07/13/19 05:50 ABG O2 Saturation 98.0 % (95.0-99.0) 07/13/19 05:50 Calcium 10.0 mg/dL (8.4-10.2) 07/20/19 05:01 Phosphorus 2.60 mg/dL (2.5-4.5) D 07/09/19 04:29 Medications & Allergies - Medications Allergies/Adverse Reactions: Allergies No Known Allergies Allergy (Verified 07/03/19 10:58) Home Medications: Home Medications Medication Instructions Recorded Confirmed Last Taken Type Amlodipine Besylate [Norvasc] 10 mg PO DAILY 06/24/19 07/04/19 Unknown History AtorvaSTATin [Lipitor] 20 mg PO QHS 06/24/19 07/04/19 Unknown History Bumetanide 1 mg PO DAILY 06/24/19 07/04/19 Unknown History Cinacalcet HCl 30 mg PO DAILY 06/24/19 07/04/19 Unknown History Divalproex Sodium [Depakote 500 mg PO BID 06/24/19 07/04/19 Unknown History Sprinkle] Lispro Insulin [HumaLOG] 0 - 200 unit SQ ACHS 06/24/19 07/04/19 Unknown History Vit B Comp No.3/Folic/C/Biotin 1 each PO DAILY 06/24/19 07/04/19 Unknown History [Nephro-Umu Rx Tablet] carvediloL [Coreg] 25 mg PO BID 06/24/19 07/04/19 Unknown History hydrALAZINE [Apresoline TAB] 50 mg PO Q8HR 06/24/19 07/04/19 Unknown History ALBUTEROL NEB's [Proventil 0.083% 2.5 mg IH TIDRT #30 nebu 06/30/19 07/04/19 Unknown Rx NEBS] Lactulose [Cephulac] 20 gm PO Q8HR oral.liqd 06/30/19 07/04/19 Unknown Rx Sevelamer Carbonate [Renvela] 800 mg PO TIDWM tablet 06/30/19 07/04/19 Unknown Rx risperiDONE [RisperDAL] 0.5 mg PO BID tablet 06/30/19 07/04/19 Unknown Rx Active Medications: Generic Name Dose Route Start Last Admin Trade Name Freq PRN Reason Stop Dose Admin Acetaminophen 650 mg 07/08/19 10:00 07/22/19 03:48 Tylenol GA 650 mg Q4H PRN Administration Pain, Mild (1-3) Albumin Human 25 gm 07/06/19 13:42 07/20/19 14:39 Alburx 25% (Albumin) IV 25 gm FEDE PRN Administration Hypotension Amlodipine Besylate 10 mg 07/17/19 13:00 07/23/19 10:39 Amlodipine PO Not Given QDAY YANG Lipase/Protease/Amylase 1 each 07/05/19 16:[address] 10,500 Unit FEEDTUBE PRN PRN For Clogged Feeding Tube Carvedilol 25 mg 07/17/19 22:00 07/23/19 10:40 Coreg PO Not Given BID YANG Cinacalcet 30 mg 07/18/19 10:00 07/23/19 10:39 Sensipar PO 30 mg QDAY YANG Administration Dextrose 0 ml 07/03/19 04:34 D50w (25gm) Syringe IV Q30MIN PRN Hypoglycemia Protocol Docusate Sodium 100 mg 07/15/19 10:00 07/23/19 10:39 Colace FEEDTUBE 100 mg BID YANG Administration Epoetin Jj 10,000 unit 07/22/19 13:00 07/22/19 21:10 Procrit SUB-Q 10,000 unit FEDE YANG Administration Famotidine 20 mg 07/07/19 10:00 07/23/19 10:39 Pepcid PO 20 mg DAILY YANG Administration Heparin Sodium (Porcine) 5,000 unit 07/03/19 10:00 07/23/19 10:39 Heparin SUB-Q 5,000 unit Q12HR YANG Administration Hydralazine HCl 50 mg 07/17/19 14:00 07/23/19 05:20 Apresoline PO 50 mg Q8HR [facility] Administration Hydrophilic Ointment 1 applic 07/03/19 00:53 Vaseline Lip Therapy TP Q2HR PRN Dry Lips Fentanyl Citrate 2,000 mcg in 100 mls @ 2.608 mls/hr 07/03/19 01:00 07/04/19 18:10 Fentanyl Drip Premix IV Infused TITR YANG Titration Protocol 1 MCG/KG/HR Sodium Chloride 100 mls @ 999 mls/hr 07/05/19 13:41 Nacl 0.9% IV FEDE PRN Hypotension Insulin Glargine 20 units 07/24/19 10:00 Lantus SUB-Q DAILY [facility] Insulin Human Lispro 0 unit 07/03/19 06:00 07/23/19 06:39 Humalog SUB-Q 4 unit Q6HR YANG Administration Protocol Multi-Ingred Cream/Lotion/Oil/Oint 1 applic 07/03/19 00:53 Artificial Tears Ophth Oint OU Q4HR PRN Dry Eye(s) Risperidone 0.5 mg 07/20/19 22:00 07/23/19 10:39 Risperdal PO 0.5 mg BID YANG Administration Simple Syrup 15 ml 07/05/19 16:27 Simple Syrup FEEDTUBE PRN PRN Hypoglycemia Simple Syrup 30 ml 07/05/19 16:27 Simple Syrup FEEDTUBE PRN PRN Hypoglycemia Sodium Bicarbonate 325 mg 07/05/19 16:27 Sodium Bicarbonate FEEDTUBE PRN PRN For Clogged Feeding Tube Sodium Chloride 10 ml 07/03/19 10:00 07/23/19 10:41 Sodium Chloride Flush Syringe 10 Ml IV 10 ml BID YANG Administration Sodium Chloride 10 ml 07/03/19 04:34 07/05/19 10:42 Sodium Chloride Flush Syringe 10 Ml IV 10 ml PRN PRN Administration LINE FLUSH Valproic Acid 500 mg 07/17/19 22:00 07/23/19 10:39 Depakene Liq FEEDTUBE 500 mg BID YANG Administration
[2019-07-24] MEDS: INSULIN LISPRO 100 UNIT/ML SUB-Q SCH ×4 (05:34→18:11)
[2019-07-24] MEDS: hydrALAZINE 25 MG TAB PO SCH ×4 (05:42→23:31)
--- NOTE | 2019-07-24 08:11 | Progress Note ---
Assessment and Plan Assessment and plan: Sepsis Source is unclear. Etiology may be secondary to pneumonia versus minimal cellulitis around sacral decubitus. Complted antibiotics Acute hypoxic respiratory failure -Continue mechanical ventilation per pulmonary. -Continue PSVT trials daily -Etiology secondary to CHF versus pneumonia. -For Trach and PEG to be done by Surg within next 1-2 days Toxic metabolic encephalopathy -Neuro checks -Continue to treat underlying causes. ESRD on HD -M/W/F -Avoid nephrotoxic agents -Renal dose all meds -Nephrology following Chronic Congestive heart Failure -Monitor input and output. -Cardiology reported no evidence of volume overload Hypertension -Continue to monitor BP -Patient is normotensive off blood pressure medications. Insulin-dependent diabetes -POC BG monitoring -SSI coverage prn Hx Seizure -Continue anticonvulsant meds -Seizure precautions. Sacral decubitus ulcer CT non contrasted without evidence of fluid collection or osteomyelitis. DVT PPX -On Heparin Disposition. Discussed with case management possibility of LTAC after Trach and PEG 07/24/19: For Trach and PEG today The high probability of a clinically significant, sudden or life threatening deterioration of the [respiratory] system(s) required my full and direct attention, intervention and personal management. The aggregate critical care time was [33] minutes. This time is in addition to time spent performing reported procedures but includes the following: [x] Data Review and interpretation [x] Patient assessment and monitoring of vital signs [x] Documentation [x] Medication orders and management History Interval history: Patient still intubated, For procedure today Hospitalist Physical - Physical exam Narrative exam: GEN: Not in acute distress, intubated, on vent HEENT: Normocephalic, atraumatic, Neck: supple, No JVD Lungs: Bilateral rhonchi, heart;S1 and S2 reg, no murmurs Abd:soft, non tender, non distended, normal bowel sounds Ext: No edema, no clubbing, no cyanosis Neuro: Intubated, sedated - Constitutional Vitals: Temp Pulse Resp BP Pulse Ox 99.4 F 70 12 134/46 99 07/24/19 03:16 07/24/19 07:40 07/24/19 07:15 07/24/19 07:15 07/24/19 07:15 General appearance: Present: other (intubated on the vent) MATT score - Matt Score Age > 65: (0) No Aspirin use within the Past 7 Days: (0) No 3 or more CAD Risk Factors: (1) Yes 2 or more Angina events in past 24 hrs: (0) No Known CAD with more than 50% Stenosis: (0) No Elevated Cardiac Markers: (1) Yes ST Deviation Greater than 0.5mm: (0) No MATT Score: 2 Results - Labs CBC & Chem 7: 07/20/19 05:01 07/20/19 05:01 Labs: Laboratory Last Values WBC 9.1 K/mm3 (4.5-11.0) 07/20/19 05:01 RBC 3.13 M/mm3 (3.65-5.03) L 07/20/19 05:01 Hgb 8.9 gm/dl (10.1-14.3) L 07/20/19 05:01 Hct 26.7 % (30.3-42.9) L 07/20/19 05:01 MCV 86 fl (79-97) 07/20/19 05:01 MCH 29 pg (28-32) 07/20/19 05:01 MCHC 33 % (30-34) 07/20/19 05:01 RDW 17.4 % (13.2-15.2) H 07/20/19 05:01 Plt Count 552 K/mm3 (140-440) H 07/20/19 05:01 Lymph % (Auto) 24.3 % (13.4-35.0) 07/20/19 05:01 [place] % (Auto) 4.6 % (0.0-7.3) 07/20/19 05:01 Eos % (Auto) 3.2 % (0.0-4.3) 07/20/19 05:01 Baso % (Auto) 0.4 % (0.0-1.8) 07/20/19 05:01 Lymph # 2.2 K/mm3 (1.2-5.4) 07/20/19 05:01 [place] # 0.4 K/mm3 (0.0-0.8) 07/20/19 05:01 Eos # 0.3 K/mm3 (0.0-0.4) 07/20/19 05:01 Baso # 0.0 K/mm3 (0.0-0.1) 07/20/19 05:01 Add Manual Diff Complete 07/19/19 05:31 Total Counted 100 07/19/19 05:31 Seg Neutrophils % 67.5 % (40.0-70.0) 07/20/19 05:01 Seg Neuts % (Manual) 80.0 % (40.0-70.0) H 07/19/19 05:31 Band Neutrophils % 1.0 % 07/19/19 05:31 Lymphocytes % (Manual) 16.0 % (13.4-35.0) 07/19/19 05:31 Reactive Lymphs % (Man) 0 % 07/19/19 05:31 Monocytes % (Manual) 3.0 % (0.0-7.3) 07/19/19 05:31 Eosinophils % (Manual) 0 % (0.0-4.3) 07/19/19 05:31 Basophils % (Manual) 0 % (0.0-1.8) 07/19/19 05:31 Metamyelocytes % 0 % 07/19/19 05:31 Myelocytes % 0 % 07/19/19 05:31 Promyelocytes % 0 % 07/19/19 05:31 Blast Cells % 0 % 07/19/19 05:31 Nucleated RBC % Not Reportable 07/19/19 05:31 Seg Neutrophils # 6.1 K/mm3 (1.8-7.7) 07/20/19 05:01 Seg Neutrophils # Man 7.4 K/mm3 (1.8-7.7) 07/19/19 05:31 Band Neutrophils # 0.1 K/mm3 07/19/19 05:31 Lymphocytes # (Manual) 1.5 K/mm3 (1.2-5.4) 07/19/19 05:31 Abs React Lymphs (Man) 0.0 K/mm3 07/19/19 05:31 Monocytes # (Manual) 0.3 K/mm3 (0.0-0.8) 07/19/19 05:31 Eosinophils # (Manual) 0.0 K/mm3 (0.0-0.4) 07/19/19 05:31 Basophils # (Manual) 0.0 K/mm3 (0.0-0.1) 07/19/19 05:31 Metamyelocytes # 0.0 K/mm3 07/19/19 05:31 Myelocytes # 0.0 K/mm3 07/19/19 05:31 Promyelocytes # 0.0 K/mm3 07/19/19 05:31 Blast Cells # 0.0 K/mm3 07/19/19 05:31 WBC Morphology Not Reportable 07/19/19 05:31 Hypersegmented Neuts Not Reportable 07/19/19 05:31 Hyposegmented Neuts Not Reportable 07/19/19 05:31 Hypogranular Neuts Not Reportable 07/19/19 05:31 Smudge Cells Not Reportable 07/19/19 05:31 Toxic Granulation Not Reportable 07/19/19 05:31 Toxic Vacuolation Not Reportable 07/19/19 05:31 Dohle Bodies Not Reportable 07/19/19 05:31 Pelger-Huet Anomaly Not Reportable 07/19/19 05:31 Andrei Rods Not Reportable 07/19/19 05:31 Platelet Estimate Consistent w auto 07/19/19 05:31 Clumped Platelets Not Reportable 07/19/19 05:31 Plt Clumps, EDTA Not Reportable 07/19/19 05:31 Large Platelets Not Reportable 07/19/19 05:31 Giant Platelets Not Reportable 07/19/19 05:31 Platelet Satelliting Not Reportable 07/19/19 05:31 Plt Morphology Comment Not Reportable 07/19/19 05:31 RBC Morphology Not Reportable 07/19/19 05:31 Dimorphic RBCs Not Reportable 07/19/19 05:31 Polychromasia Not Reportable 07/19/19 05:31 Hypochromasia Not Reportable 07/19/19 05:31 Poikilocytosis Not Reportable 07/19/19 05:31 Anisocytosis 1+ 07/19/19 05:31 Microcytosis Not Reportable 07/19/19 05:31 Macrocytosis Not Reportable 07/19/19 05:31 Spherocytes Not Reportable 07/19/19 05:31 Pappenheimer Bodies Not Reportable 07/19/19 05:31 Sickle Cells Not Reportable 07/19/19 05:31 Target Cells Not Reportable 07/19/19 05:31 Tear Drop Cells Not Reportable 07/19/19 05:31 Ovalocytes Not Reportable 07/19/19 05:31 Stomatocytes Rare 07/19/19 05:31 Helmet Cells Not Reportable 07/19/19 05:31 [place] Bodies Not Reportable 07/19/19 05:31 [place] Rings Not Reportable 07/19/19 05:31 Schroeder Cells Not Reportable 07/19/19 05:31 Bite Cells Not Reportable 07/19/19 05:31 Crenated Cell Not Reportable 07/19/19 05:31 Elliptocytes Not Reportable 07/19/19 05:31 Acanthocytes (Spur) Not Reportable 07/19/19 05:31 Rouleaux Not Reportable 07/19/19 05:31 Hemoglobin C Crystals Not Reportable 07/19/19 05:31 Schistocytes Not Reportable 07/19/19 05:31 Malaria parasites Not Reportable 07/19/19 05:31 Tristen Bodies Not Reportable 07/19/19 05:31 Hem Pathologist Commnt No 07/19/19 05:31 PT 13.5 Sec. (12.2-14.9) 07/23/19 04:41 INR 1.02 (0.87-1.13) 07/23/19 04:41 ABG pH 7.425 pH Units (7.350-7.450) 07/13/19 05:50 ABG pCO2 42.9 mm Hg 07/13/19 05:50 ABG pO2 110.8 mm Hg (80.0-90.0) H 07/13/19 05:50 ABG HCO3 27.5 mmol/L (20.0-26.0) H 07/13/19 05:50 ABG O2 Saturation 98.0 % (95.0-99.0) 07/13/19 05:50 ABG O2 Content 13.7 (0.0-44) 07/13/19 05:50 ABG Base Excess 2.8 mmol/L (-2.0-3.0) 07/13/19 05:50 ABG Hemoglobin 10.0 gm/dl (12.0-16.0) L 07/13/19 05:50 ABG Carboxyhemoglobin 1.4 % (0.0-5.0) 07/13/19 05:50 ABG Methemoglobin 0.5 % (0.0-1.5) 07/13/19 05:50 Oxyhemoglobin 96.2 % (95.0-99.0) 07/13/19 05:50 FiO2 40 % 07/13/19 05:50 Sodium 134 mmol/L (137-145) L 07/20/19 05:01 Potassium 4.9 mmol/L (3.6-5.0) 07/20/19 05:01 Chloride 88.4 mmol/L (98-107) L 07/20/19 05:01 Carbon Dioxide 21 mmol/L (22-30) L 07/20/19 05:01 Anion Gap 30 mmol/L 07/20/19 05:01 BUN 110 mg/dL (7-17) H 07/20/19 05:01 Creatinine 5.1 mg/dL (0.7-1.2) H 07/20/19 05:01 Estimated GFR 9 ml/min 07/20/19 05:01 BUN/Creatinine Ratio 22 % 07/20/19 05:01 Glucose 168 mg/dL (65-100) H 07/20/19 05:01 POC Glucose 172 (70-105) H 07/24/19 05:13 Hemoglobin A1c 7.0 % (4-6) H 07/03/19 01:00 Lactic Acid 1.20 mmol/L (0.7-2.0) 07/03/19 04:13 Calcium 10.0 mg/dL (8.4-10.2) 07/20/19 05:01 Phosphorus 2.60 mg/dL (2.5-4.5) D 07/09/19 04:29 Total Bilirubin 0.30 mg/dL (0.1-1.2) 07/03/19 01:00 AST 22 units/L (5-40) 07/03/19 01:00 ALT 9 units/L (7-56) 07/03/19 01:00 Alkaline Phosphatase 101 units/L (35-129) 07/03/19 01:00 Ammonia 35.0 umol/L (25-60) 07/03/19 01:58 NT-Pro-B Natriuret Pep > 38971 pg/mL (0-900) H 07/03/19 01:00 Total Protein 7.0 g/dL (6.3-8.2) 07/03/19 01:00 Albumin 2.5 g/dL (3.9-5) L 07/03/19 01:00 Albumin/Globulin Ratio 0.6 % 07/03/19 01:00 TSH 2.600 mlU/mL (0.270-4.200) 07/03/19 01:00 Urine Color Yellow (Yellow) 07/03/19 Unknown Urine Turbidity Clear (Clear) 07/03/19 Unknown Urine pH 6.0 (5.0-7.0) 07/03/19 Unknown Ur Specific [place] 1.012 (1.003-1.030) 07/03/19 Unknown Urine Protein >500 mg/dL (Negative) 07/03/19 Unknown Urine Glucose (UA) >=500 mg/dL (Negative) 07/03/19 Unknown Urine Ketones Neg mg/dL (Negative) 07/03/19 Unknown Urine Blood Neg (Negative) 07/03/19 Unknown Urine Nitrite Neg (Negative) 07/03/19 Unknown Ur Reducing Substances Not Reportable 07/03/19 Unknown Urine Bilirubin Neg (Negative) 07/03/19 Unknown Urine Ictotest Not Reportable 07/03/19 Unknown Urine Urobilinogen < 2.0 mg/dL (<2.0) 07/03/19 Unknown Ur Leukocyte Esterase Neg (Negative) 07/03/19 Unknown Urine WBC (Auto) 1.0 /HPF (0.0-6.0) 07/03/19 Unknown Urine RBC (Auto) 2.0 /HPF (0.0-6.0) 07/03/19 Unknown U Epithel Cells (Auto) < 1.0 /HPF (0-13.0) 07/03/19 Unknown Urine Mucus Few /HPF 07/03/19 Unknown Random Vancomycin 18.7 ug/mL (0-40.0) 07/08/19 04:38 Influenza A (Rapid) Negative (Negative) 07/05/19 14:30 Influenza B (Rapid) Negative (Negative) 07/05/19 14:30 Active Medications - Current Medications Current Medications: Generic Name Dose Route Start Last Admin Trade Name Freq PRN Reason Stop Dose Admin Acetaminophen 650 mg 07/08/19 10:00 07/22/19 03:48 Tylenol [place] 650 mg Q4H PRN Administration Pain, Mild (1-3) Albumin Human 25 gm 07/06/19 13:42 07/20/19 14:39 Alburx 25% (Albumin) IV 25 gm FEDE PRN Administration Hypotension Amlodipine Besylate 10 mg 07/17/19 13:00 07/23/19 10:39 Amlodipine PO Not Given QDAY [facility] Lipase/Protease/Amylase 1 each 07/05/19 16:27 Pancredelfino [place] 10,500 Unit FEEDTUBE PRN PRN For Clogged Feeding Tube Carvedilol 25 mg 07/17/19 22:00 07/23/19 21:23 Coreg PO 25 mg BID YANG Administration Cinacalcet 30 mg 07/18/19 10:00 07/23/19 10:39 Sensipar PO 30 mg QDAY [facility] Administration Dextrose 0 ml 07/03/19 04:34 D50w (25gm) Syringe IV Q30MIN PRN Hypoglycemia Protocol Docusate Sodium 100 mg 07/15/19 10:00 07/23/19 21:23 Colace FEEDTUBE 100 mg BID YANG Administration Epoetin Jj 10,000 unit 07/22/19 13:00 07/22/19 21:10 Procrit SUB-Q 10,000 unit FEDE [facility] Administration Famotidine 20 mg 07/07/19 10:00 07/23/19 10:39 Pepcid PO 20 mg DAILY [facility] Administration Heparin Sodium (Porcine) 5,000 unit 07/03/19 10:00 07/23/19 21:23 Heparin SUB-Q 5,000 unit Q12HR YANG Administration Hydralazine HCl 50 mg 07/17/19 14:00 07/24/19 05:42 Apresoline PO 50 mg Q8HR [facility] Administration Hydrophilic Ointment 1 applic 07/03/19 00:53 Vaseline Lip Therapy TP Q2HR PRN Dry Lips Fentanyl Citrate 2,000 mcg in 100 mls @ 2.608 mls/hr 07/03/19 01:00 07/04/19 18:10 Fentanyl Drip Premix IV Infused TITR [facility] Titration Protocol 1 MCG/KG/HR Sodium Chloride 100 mls @ 999 mls/hr 07/05/19 13:41 Nacl 0.9% IV FEDE PRN Hypotension Insulin Glargine 20 units 07/24/19 10:00 Lantus SUB-Q DAILY [facility] Insulin Human Lispro 0 unit 07/03/19 06:00 07/24/19 05:43 Humalog SUB-Q Not Given Q6HR [facility] Protocol Multi-Ingred Cream/Lotion/Oil/Oint 1 applic 07/03/19 00:53 Artificial Tears Ophth Oint OU Q4HR PRN Dry Eye(s) Risperidone 0.5 mg 07/20/19 22:00 07/23/19 21:23 Risperdal PO 0.5 mg BID YANG Administration Simple Syrup 15 ml 07/05/19 16:27 Simple Syrup FEEDTUBE PRN PRN Hypoglycemia Simple Syrup 30 ml 07/05/19 16:27 Simple Syrup FEEDTUBE PRN PRN Hypoglycemia Sodium Bicarbonate 325 mg 07/05/19 16:27 Sodium Bicarbonate FEEDTUBE PRN PRN For Clogged Feeding Tube Sodium Chloride 10 ml 07/03/19 10:00 07/23/19 21:24 Sodium Chloride Flush Syringe 10 Ml IV 10 ml BID YANG Administration Sodium Chloride 10 ml 07/03/19 04:34 07/05/19 10:42 Sodium Chloride Flush Syringe 10 Ml IV 10 ml PRN PRN Administration LINE FLUSH Valproic Acid 500 mg 07/17/19 22:00 07/23/19 21:23 Depakene Liq FEEDTUBE 500 mg BID YANG Administration Nutrition/Malnutrition Assess - Dietary Evaluation Nutrition/Malnutrition Findings: Nutrition Notes Start: 07/06/19 08:50 Freq: Status: Active Protocol: Document 07/21/19 11:23 CT (Rec: 07/21/19 11:30 CT [id number]) Co-Sign 07/21/19 11:23 LP Nutrition Notes Initial or Follow up Reassessment Current Diagnosis CKD (stage V CKD),Decubitus( Pressure Ulcer),Diabetes,Heart Failure,Respiratory Failure Other Pertinent Diagnosis on HD, Sacral PU, seizures, bipolar disorder, metabolic encephalopathy Current Diet Nepro 1.8 at 35 ml/hr Labs/Tests Na 134 BUN 110 Cr 5.1 Pertinent Medications Heparin Bumex Lantus Height 5 ft 2 in Weight 53.1 kg [place] Body Weight (kg) 50.00 BMI 21.4 Weight change and time frame wt gain likely d/t fluid Weight Status Appropriate Subjective/Other Information FU for tolerance. Nepro 1.8 running at 35ml/hr. Percent of energy/protein needs met: 100%/100% Burn Absent Trauma Absent GI Symptoms None Current % PO Negligible Minimum of two criteria No physical signs of malnutrition #2 Nutrition Diagnosis Increased nutrient needs ( specify in comment below) Comments: Protein Diagnosis Progress(for reassessment Continues documentation) #1 Nutrition Diagnosis Inadequate oral intake Diagnosis Progress(for reassessment Continues documentation) Is patient on ventilator? Yes Is Patient Ambulatory and/or Out of Bed No REE-([facility] Jemd-confined to bed) 1282.032 Calculation Used for Recommendations [facility] Additional Notes Protein: 58 -96g (1.2-2g/kg) Fluid: 1-1.5 L/ day Nutrition Intervention Change Diet Order: TF Nutrition Support: Nepro 1.8 at 35ml/hr Change flush to 100 ml q4h. Kcal 1,512 Protein (gm) 68 Fluid (mL) 611 Goal #1 TF tolerance Goal #2 Wound Healing Anticipated Discharge Needs: unable to determine at this time Follow-Up By: 07/28/19 Additional Comments Follow up for TF at goal rate
[2019-07-24] MEDS: ALBUMIN HUMAN 25% (25 GM/100 ML) INJ IV PRN (10:13)
[2019-07-24] MEDS: DOCUSATE SODIUM 100 MG/10 ML ORAL LIQD FEEDTUBE SCH ×2 (10:28→23:32)
[2019-07-24] MEDS: HEPARIN 5,000 UNIT/1 ML VIAL SUB-Q SCH ×2 (10:28→23:33)
[2019-07-24] MEDS: carvediloL 25 MG TAB PO SCH ×3 (10:28→23:31)
[2019-07-24] MEDS: amLODIPine 10 MG TAB PO SCH ×2 (10:28→18:08)
[2019-07-24] MEDS: CINACALCET 30 MG TAB PO SCH (10:29)
[2019-07-24] MEDS: FAMOTIDINE 20 MG TAB PO SCH (10:29)
--- NOTE | 2019-07-24 11:41 | Progress Note ---
Assessment and Plan Acute hypoxic respiratory failure on mechanical ventilation Acute metabolic encephalopathy ESRD on HD HTN Sepsis Hx of seizures DM Type 2 on insulin Hypercalemia Hyponatremia Plan: - HD today for clearance and volume removal - Assess dialysis needs daily - Epogen dosing for anemia management - Currently Intubated on Vent - as per Pulmonology - Planning on Trach/PEG - Strict I&O - Renally dose meds - This pt undergoes outpatient HD at [facility] every MWF Subjective Principal diagnosis: Acute hypoxemic resp failure; AMS; Severe Sepsis; ESRD; CHF; HTN; Seizure Interval history: no family at bedside, on the vent Objective - Vital Signs Vital signs: Vital Signs - 12hr 07/23/19 07/23/19 07/24/19 23:45 23:50 00:00 Temperature 98.9 F Pulse Rate 73 72 Pulse Rate [ 72 From Monitor] Respiratory 12 12 Rate Blood Pressure 144/49 137/52 O2 Sat by Pulse 100 100 Oximetry O2 Sat by Pulse Oximetry [ Anterior Bilateral Throughout] 07/24/19 07/24/19 07/24/19 00:15 00:30 00:40 Temperature Pulse Rate 72 72 73 Pulse Rate [ From Monitor] Respiratory 12 12 Rate Blood Pressure 143/54 139/48 134/47 O2 Sat by Pulse 100 100 100 Oximetry O2 Sat by Pulse Oximetry [ Anterior Bilateral Throughout] 07/24/19 07/24/19 07/24/19 00:45 01:00 01:15 Temperature Pulse Rate 73 71 71 Pulse Rate [ From Monitor] Respiratory 12 12 12 Rate Blood Pressure 134/47 135/53 143/56 O2 Sat by Pulse 99 100 100 Oximetry O2 Sat by Pulse Oximetry [ Anterior Bilateral Throughout] 07/24/19 07/24/19 07/24/19 01:30 01:45 02:00 Temperature Pulse Rate 71 70 70 Pulse Rate [ From Monitor] Respiratory 12 12 12 Rate Blood Pressure 141/49 144/52 141/54 O2 Sat by Pulse 100 100 100 Oximetry O2 Sat by Pulse Oximetry [ Anterior Bilateral Throughout] 07/24/19 07/24/19 07/24/19 02:15 02:30 02:45 Temperature Pulse Rate 70 70 70 Pulse Rate [ From Monitor] Respiratory 12 12 12 Rate Blood Pressure 140/49 143/56 148/51 O2 Sat by Pulse 100 100 100 Oximetry O2 Sat by Pulse Oximetry [ Anterior Bilateral Throughout] 0207/24/19 07/24/19 03:00 03:15 03:16 Temperature 99.4 F Pulse Rate 71 70 Pulse Rate [ From Monitor] Respiratory 12 12 Rate Blood Pressure 152/54 151/56 O2 Sat by Pulse 100 100 Oximetry O2 Sat by Pulse Oximetry [ Anterior Bilateral Throughout] 07/24/19 07/24/19 07/24/19 03:30 03:45 04:00 Temperature Pulse Rate 69 69 71 Pulse Rate [ 72 From Monitor] Respiratory 12 12 12 Rate Blood Pressure 143/51 141/50 142/50 O2 Sat by Pulse 100 100 100 Oximetry O2 Sat by Pulse Oximetry [ Anterior Bilateral Throughout] 07/24/19 07/24/19 07/24/19 04:15 04:25 04:30 Temperature Pulse Rate 69 70 69 Pulse Rate [ From Monitor] Respiratory 12 12 Rate Blood Pressure 139/47 142/54 137/48 O2 Sat by Pulse 100 100 100 Oximetry O2 Sat by Pulse Oximetry [ Anterior Bilateral Throughout] 07/24/19 07/24/19 07/24/19 04:45 05:00 05:15 Temperature Pulse Rate 69 67 68 Pulse Rate [ From Monitor] Respiratory 12 12 12 Rate Blood Pressure 147/51 148/52 146/59 O2 Sat by Pulse 100 100 100 Oximetry O2 Sat by Pulse Oximetry [ Anterior Bilateral Throughout] 07/24/19 07/24/19 07/24/19 05:30 05:42 05:45 Temperature Pulse Rate 68 68 68 Pulse Rate [ From Monitor] Respiratory 12 12 Rate Blood Pressure 154/58 155/56 155/56 O2 Sat by Pulse 100 100 Oximetry O2 Sat by Pulse Oximetry [ Anterior Bilateral Throughout] 07/24/19 07/24/19 07/24/19 06:00 06:15 06:30 Temperature Pulse Rate 70 71 71 Pulse Rate [ From Monitor] Respiratory 12 14 12 Rate Blood Pressure 165/56 145/49 147/50 O2 Sat by Pulse 100 100 100 Oximetry O2 Sat by Pulse Oximetry [ Anterior Bilateral Throughout] 07/24/19 07/24/19 07/24/19 06:45 07:00 07:15 Temperature Pulse Rate 68 71 69 Pulse Rate [ From Monitor] Respiratory 12 12 12 Rate Blood Pressure 132/50 131/45 134/46 O2 Sat by Pulse 100 99 99 Oximetry O2 Sat by Pulse Oximetry [ Anterior Bilateral Throughout] 0207/24/19 07/24/19 07:31 07:40 07:45 Temperature Pulse Rate 67 70 69 Pulse Rate [ From Monitor] Respiratory 9 L 12 Rate Blood Pressure 128/42 124/46 O2 Sat by Pulse 99 100 Oximetry O2 Sat by Pulse Oximetry [ Anterior Bilateral Throughout] 07/24/19 07/24/19 07/24/19 08:00 08:15 08:18 Temperature 98.3 F Pulse Rate 67 67 69 Pulse Rate [ 70 From Monitor] Respiratory 12 12 Rate Blood Pressure 130/48 138/47 138/47 O2 Sat by Pulse 100 100 100 Oximetry O2 Sat by Pulse Oximetry [ Anterior Bilateral Throughout] 07/24/19 07/24/19 07/24/19 08:30 08:45 09:00 Temperature Pulse Rate 70 68 68 Pulse Rate [ From Monitor] Respiratory 11 L 12 12 Rate Blood Pressure 130/52 128/49 130/47 O2 Sat by Pulse 100 99 100 Oximetry O2 Sat by Pulse Oximetry [ Anterior Bilateral Throughout] 07/24/19 07/24/19 07/24/19 09:05 09:15 09:30 Temperature 98.3 F Pulse Rate 67 68 72 Pulse Rate [ From Monitor] Respiratory 18 12 11 L Rate Blood Pressure 130/47 123/97 101/40 O2 Sat by Pulse 99 99 Oximetry O2 Sat by Pulse 100 Oximetry [ Anterior Bilateral Throughout] 07/24/19 07/24/19 07/24/19 09:45 10:00 10:15 Temperature Pulse Rate 71 72 72 Pulse Rate [ From Monitor] Respiratory 14 16 12 Rate Blood Pressure 101/40 92/38 101/40 O2 Sat by Pulse 100 100 100 Oximetry O2 Sat by Pulse Oximetry [ Anterior Bilateral Throughout] 07/24/19 07/24/19 07/24/19 10:30 10:45 11:00 Temperature Pulse Rate 67 67 69 Pulse Rate [ From Monitor] Respiratory 12 12 13 Rate Blood Pressure 99/32 95/38 104/42 O2 Sat by Pulse 100 100 100 Oximetry O2 Sat by Pulse Oximetry [ Anterior Bilateral Throughout] 07/24/19 07/24/19 07/24/19 11:12 11:15 11:30 Temperature Pulse Rate 68 69 68 Pulse Rate [ From Monitor] Respiratory Rate Blood Pressure 104/42 94/38 103/35 O2 Sat by Pulse 100 Oximetry O2 Sat by Pulse Oximetry [ Anterior Bilateral Throughout] - General Appearance General appearance: intubated EENT: ATNC, PERRL, mucous membranes dry Neck: no JVD, no carotid bruit Respiratory: Present: Clear to Ascultation. Absent: Rales, Ronchi Cardiology: regular, S1S2 Gastrointestinal: normoactive bowel sounds, no tenderness, no distended Integumentary: no rash, warm and dry Neurologic: other (intubated) Musculoskeletal: other (no edema in BLE) Psychiatric: other (intubated) - Lab 07/20/19 05:01 07/20/19 05:01 Most recent lab results ABG pH 7.425 pH Units (7.350-7.450) 07/13/19 05:50 ABG pCO2 42.9 mm Hg 07/13/19 05:50 ABG pO2 110.8 mm Hg (80.0-90.0) H 07/13/19 05:50 ABG HCO3 27.5 mmol/L (20.0-26.0) H 07/13/19 05:50 ABG O2 Saturation 98.0 % (95.0-99.0) 07/13/19 05:50 Calcium 10.0 mg/dL (8.4-10.2) 07/20/19 05:01 Phosphorus 2.60 mg/dL (2.5-4.5) D 07/09/19 04:29 Medications & Allergies - Medications Allergies/Adverse Reactions: Allergies No Known Allergies Allergy (Verified 07/03/19 10:58) Home Medications: Home Medications Medication Instructions Recorded Confirmed Last Taken Type Amlodipine Besylate [Norvasc] 10 mg PO DAILY 06/24/19 07/04/19 Unknown History AtorvaSTATin [Lipitor] 20 mg PO QHS 06/24/19 07/04/19 Unknown History Bumetanide 1 mg PO DAILY 06/24/19 07/04/19 Unknown History Cinacalcet HCl 30 mg PO DAILY 06/24/19 07/04/19 Unknown History Divalproex Sodium [Depakote 500 mg PO BID 06/24/19 07/04/19 Unknown History Sprinkle] Lispro Insulin [HumaLOG] 0 - 200 unit SQ ACHS 06/24/19 07/04/19 Unknown History Vit B Comp No.3/Folic/C/Biotin 1 each PO DAILY 06/24/19 07/04/19 Unknown History [Nephro-Umu Rx Tablet] carvediloL [Coreg] 25 mg PO BID 06/24/19 07/04/19 Unknown History hydrALAZINE [Apresoline TAB] 50 mg PO Q8HR 06/24/19 07/04/19 Unknown History ALBUTEROL NEB's [Proventil 0.083% 2.5 mg IH TIDRT #30 nebu 06/30/19 07/04/19 Unknown Rx NEBS] Lactulose [Cephulac] 20 gm PO Q8HR oral.liqd 06/30/19 07/04/19 Unknown Rx Sevelamer Carbonate [Renvela] 800 mg PO TIDWM tablet 06/30/19 07/04/19 Unknown Rx risperiDONE [RisperDAL] 0.5 mg PO BID tablet 06/30/19 07/04/19 Unknown Rx Active Medications: Generic Name Dose Route Start Last Admin Trade Name Freq PRN Reason Stop Dose Admin Acetaminophen 650 mg 07/08/19 10:00 07/22/19 03:48 Tylenol MI 650 mg Q4H PRN Administration Pain, Mild (1-3) Albumin Human 25 gm 07/06/19 13:42 07/24/19 10:13 Alburx 25% (Albumin) IV 25 gm FEDE PRN Administration Hypotension Amlodipine Besylate 10 mg 07/17/19 13:00 07/24/19 10:28 Amlodipine PO Not Given QDAY [facility] Lipase/Protease/Amylase 1 each 07/05/19 16:27 Pancredelfino Knapp 10,500 Unit FEEDTUBE PRN PRN For Clogged Feeding Tube Carvedilol 25 mg 07/17/19 22:00 07/24/19 10:28 Coreg PO Not Given BID YANG Cinacalcet 30 mg 07/18/19 10:00 07/24/19 10:29 Sensipar PO Not Given QDAY YANG Dextrose 0 ml 07/03/19 04:34 D50w (25gm) Syringe IV Q30MIN PRN Hypoglycemia Protocol Docusate Sodium 100 mg 07/15/19 10:00 07/24/19 10:28 Colace FEEDTUBE Not Given BID YANG Epoetin Jj 10,000 unit 07/22/19 13:00 07/22/19 21:10 Procrit SUB-Q 10,000 unit FEDE YNAG Administration Famotidine 20 mg 07/07/19 10:00 07/24/19 10:29 Pepcid PO Not Given DAILY [facility] Heparin Sodium (Porcine) 5,000 unit 07/03/19 10:00 07/24/19 10:28 Heparin SUB-Q Not Given Q12HR [facility] Hydralazine HCl 50 mg 07/17/19 14:00 07/24/19 05:42 Apresoline PO 50 mg Q8HR [facility] Administration Hydrophilic Ointment 1 applic 07/03/19 00:53 Vaseline Lip Therapy TP Q2HR PRN Dry Lips Fentanyl Citrate 2,000 mcg in 100 mls @ 2.608 mls/hr 07/03/19 01:00 07/04/19 18:10 Fentanyl Drip Premix IV Infused TITR [facility] Titration Protocol 1 MCG/KG/HR Sodium Chloride 100 mls @ 999 mls/hr 07/05/19 13:41 Nacl 0.9% IV FEDE PRN Hypotension Insulin Glargine 20 units 07/24/19 10:00 Lantus SUB-Q DAILY [facility] Insulin Human Lispro 0 unit 07/03/19 06:00 07/24/19 05:43 Humalog SUB-Q Not Given Q6HR [facility] Protocol Multi-Ingred Cream/Lotion/Oil/Oint 1 applic 07/03/19 00:53 Artificial Tears Ophth Oint OU Q4HR PRN Dry Eye(s) Risperidone 0.5 mg 07/20/19 22:00 07/23/19 21:23 Risperdal PO 0.5 mg BID YANG Administration Simple Syrup 15 ml 07/05/19 16:27 Simple Syrup FEEDTUBE PRN PRN Hypoglycemia Simple Syrup 30 ml 07/05/19 16:27 Simple Syrup FEEDTUBE PRN PRN Hypoglycemia Sodium Bicarbonate 325 mg 07/05/19 16:27 Sodium Bicarbonate FEEDTUBE PRN PRN For Clogged Feeding Tube Sodium Chloride 10 ml 07/03/19 10:00 07/24/19 10:29 Sodium Chloride Flush Syringe 10 Ml IV Not Given BID YANG Sodium Chloride 10 ml 07/03/19 04:34 07/05/19 10:42 Sodium Chloride Flush Syringe 10 Ml IV 10 ml PRN PRN Administration LINE FLUSH Valproic Acid 500 mg 07/17/19 22:00 07/23/19 21:23 Depakene Liq FEEDTUBE 500 mg BID YANG Administration
[2019-07-24] MEDS: EPOETIN ALFA 10,000 UNIT/1 ML INJ SUB-Q SCH (12:21)
[2019-07-24] MEDS ORDERED: propofoL 200 MG/20 ML VIAL IV ONE ×3 (12:40→12:41)
--- NOTE | 2019-07-24 12:56 | Anesthesia Day of Surgery ---
Anesthesia Day of Surgery - Day of Surgery Patient Examined: Yes Patient H&P Reviewed: Yes Patient is NPO: Yes Beta Blockers: Yes
[2019-07-24] MEDS ORDERED: WATER FOR IRRIG STERILE 250 ML BOTTLE IR ONE (13:12)
[2019-07-24] MEDS ORDERED: SODIUM CHLORIDE 0.9% 1000 ML 1,000 ML ONE (13:12)
[2019-07-24] MEDS ORDERED: WATER FOR IRRIG STERILE 1,000 ML BOTTLE ONE (13:12)
[2019-07-24] MEDS: SODIUM CHLORIDE 0.9% 1000 ML 1,000 ML IV SCH (13:12)
[2019-07-24] MEDS ORDERED: PHENYLEPHRINE/NS 1,000 MCG/10 ML SYRINGE (OR USE) IV ONE (13:30)
[2019-07-24] MEDS ORDERED: LIDOCAINE MPF (2%) 20 MG/1 ML VIAL 5 ML ONE (13:30)
[2019-07-24] MEDS ORDERED: ROCURONIUM 50 MG/5 ML INJ IV ONE (13:30)
--- NOTE | 2019-07-24 14:24 | Procedure Note ---
Date of procedure: 07/24/19 Pre-op diagnosis: VDRF Post-op diagnosis: same Procedure: Tracheostomy Findings: The patient was identified in the hospital bed in the ICU. Consent was verified on the chart and timeout was performed. The neck was prepped and draped in usual sterile fashion. Anesthesia was administered. Dr. Silva performed fiberoptic bronchoscopy throughout the entire procedure (see separate procedure note). The patient's head was slightly extended and a shoulder roll placed across the shoulder blades. 1% lidocaine was infiltrated into the skin and subcutaneous tissue approximately 2 fingerbreadths above the vance. A 2 cm incision was made in a horizontal fashion using a 15 blade. Using a hemostat the soft tissues were bluntly dissected. The introducer needle was used to enter the trachea under direct visualization, through which the wire was passed down the trachea towards the vance. Introducer needle was then removed. The trachea was then serially dilated, after which a 8 Fijian Shiley tracheostomy tube was inserted. The balloon was inflated, patient placed back on ventilator, and tidal volumes assessed which were satisfactory. The bronchoscope was then placed through the tracheostomy and showed good positioning of the tracheostomy above the vance and no bleeding. The tracheostomy was sutured into place using 2-0 Prolene sutures. A drain sponge was placed between the skin and tracheostomy. The tracheostomy was secured to the patient's neck using a tracheostomy strap. Post procedure CXR was obtained. The patient tolerated the procedure well. All sharps were disposed of appropriately. Anesthesia: SHANITAA, local Surgeon: MARC FELDMAN Estimated blood loss: minimal Pathology: none Condition: stable Disposition: no change
--- NOTE | 2019-07-24 14:37 | Procedure Note ---
Date of procedure: 07/24/19 Pre-op diagnosis: respiratory failure Post-op diagnosis: same Procedure: Bronchoscopy Consent was on the chart. Timeout was called. After adequate sedation was establish, flexible bronchoscope was introduced via the ETT. The airway was clear, but the ETT had a lot of mucus and debris in it. ETT was intially at 22cm. We pulled it back to 18cm. Eventually, we ended up pulling it back to 15cm. Under bronchoscopic guidance, Dr. Urbina performed the tracheostomy. Introducer needle, dilator, guidewire, larger dilators, and tracheostomy tube were all directly observed during the case. After the tracheostomy tube was inserted, bronchoscope was introduced via the trach tube and position was confirmed. There was no active bleeding. The tip of the tube was at least 3-4cm above the vance. Pt tolerated the procedure well. There were no complications. PEG placement Co-Surgeons Ciara Ambrose Anesth MAC (administered by anesthesia provider) EBL min Implant 20Fr pull PEG tube Procedure - timeout had already been performed. Consent was on the chart. Bite-block was placed. Endoscope was inserted. We intubated the esophagus. Scope was passed down to the stomach. Stomach was insufflated. We identified the area of transillumination in the body of stomach. Dr. Urbina then prepped and draped that area. Local anesthetic was administered. Small incision was made. Introducer needle was passed into the stomach. Guidewire was passed which was grabbed with the snare and pulled back up to the mouth. PEG tube was attached. Dr. Urbina pulled the PEG tube back into the stomach. Endoscope was reinserted. The button was visualized. There was no evidence of bleeding. There did not appear to be any excess pressure on the stomach. The rest of the stomach was inspected. First and second portions of duodenum were inspected. Esophagus was evaluated as the scope was being pulled out. The stomach lining appeared markedly abnormal. There were scattered areas of cobblestoning. There was evidence of mild gastritis and petechiae. Patient tolerated the procedure well. There were no complications. The pelvic collar was at 2 cm. Patient was in stable condition at the end of the case in ICU. Findings: significant amount of mucus and debris in ETT. Airway was clean. stomach had significant changes of cobblestoning, erythema, and signs of gastris. Implants: 20Fr PEG tube Anesthesia: MAC Surgeon: MAT AMBROSE (Co-surgeon for PEG - Ciara) Estimated blood loss: minimal Pathology: none Condition: stable Disposition: ICU
--- NOTE | 2019-07-24 15:03 | Progress Note ---
Assessment and Plan Acute hypoxemic respiratory failure on MVS Acute toxic metabolic encephalopathy Severe Sepsis ESRD on HD Congestive heart Failure Accelerated Hypertension H/O Seizure Trach care, airway clearance, secretion management Rest on full MVS for the rest of the day, resume SBT/PSV trials in the morning - VAP bundle addressed (aspiration precautions, HOB>40 degrees) -Lung protective strategies -wean FiO2 for O2 sats >90% - continue bronchodilators with pulmonary hygiene per RT - ABG, CXR in am - Daily SAT's and SBT assessment as tolerated - enteral nutrition at goal - HD/UF per nephrology for toxin and volume clearance - Continue to monitor off antibiotics, rend fever curve and WCC - VTE prophylaxis with heparin SQ - continue stress ulcer prophylaxis with Famotidine -continue accuchecks with glycemic control for SSI (While critically ill target blood glucose of 140-180 mg/dL; avoid hypoglycemia) -continue mobility protocols and off loading for pressure ulcer prevention - continue to monitor hemodynamics closely - continue fluid restrictive strategies as tolerated by hemodynamics and by her renal function - continue to avoid nephrotoxins, dose all medications for CrCL and GFR - continue to monitor electrolyte profile closely and replete as indicated - Chronic home medications, resume as clinically indicated - All other care per attending / other consultants CONDITION: CRITICAL PROGNOSIS: GUARDED CODE STATUS: FULL CODE The high probability of a clinically significant, sudden or life-threatening deterioration of the [respiratory, cardiovascular, neurology, renal] system(s) required my full and direct attention, intervention and personal management. The aggregate critical care time was [30] minutes without overlap. Time includes spent on; [x] Data Review and interpretation [x] Patient assessment and monitoring of vital signs [x] Documentation [x] Medication orders and management Subjective Date of service: 07/24/19 Principal diagnosis: Acute hypoxemic resp failure; AMS; Severe Sepsis; ESRD; CHF; HTN; Seizure Interval history: Patient is seen today for: Acute hypoxemic respiratory failure; Toxic metabolic encephalopathy; Severe Sepsis; ESRD on HD; CHF; Accelerated Hypertension; H/O Seizure Seen and examined at bedside; 24hour events reviewed; nursing and respiratory care staff consulted; no adverse overnight events reported to me; resting peacefully in bed; AMS is persistent but slowly improving; no emesis or overt a spiration; no seizures; tube feeds going; no high grade fevers trach and PEG placement today, uneventful. Vitals, labs, medications, chart reviewed Objective Vital Signs - 12hr 07/24/19 07/24/19 07/24/19 03:15 03:16 03:30 Temperature 99.4 F Pulse Rate 70 69 Pulse Rate [ From Monitor] Respiratory 12 12 Rate Blood Pressure 151/56 143/51 O2 Sat by Pulse 100 100 Oximetry O2 Sat by Pulse Oximetry [ Anterior Bilateral Throughout] 07/24/19 07/24/19 07/24/19 03:45 04:00 04:15 Temperature Pulse Rate 69 71 69 Pulse Rate [ 72 From Monitor] Respiratory 12 12 12 Rate Blood Pressure 141/50 142/50 139/47 O2 Sat by Pulse 100 100 100 Oximetry O2 Sat by Pulse Oximetry [ Anterior Bilateral Throughout] 07/24/19 07/24/19 07/24/19 04:25 04:30 04:45 Temperature Pulse Rate 70 69 69 Pulse Rate [ From Monitor] Respiratory 12 12 Rate Blood Pressure 142/54 137/48 147/51 O2 Sat by Pulse 100 100 100 Oximetry O2 Sat by Pulse Oximetry [ Anterior Bilateral Throughout] 07/24/19 07/24/19 07/24/19 05:00 05:15 05:30 Temperature Pulse Rate 67 68 68 Pulse Rate [ From Monitor] Respiratory 12 12 12 Rate Blood Pressure 148/52 146/59 154/58 O2 Sat by Pulse 100 100 100 Oximetry O2 Sat by Pulse Oximetry [ Anterior Bilateral Throughout] 07/24/19 07/24/19 07/24/19 05:42 05:45 06:00 Temperature Pulse Rate 68 68 70 Pulse Rate [ From Monitor] Respiratory 12 12 Rate Blood Pressure 155/56 155/56 165/56 O2 Sat by Pulse 100 100 Oximetry O2 Sat by Pulse Oximetry [ Anterior Bilateral Throughout] 07/24/19 07/24/19 07/24/19 06:15 06:30 06:45 Temperature Pulse Rate 71 71 68 Pulse Rate [ From Monitor] Respiratory 14 12 12 Rate Blood Pressure 145/49 147/50 132/50 O2 Sat by Pulse 100 100 100 Oximetry O2 Sat by Pulse Oximetry [ Anterior Bilateral Throughout] 07/24/19 07/24/19 07/24/19 07:00 07:15 07:31 Temperature Pulse Rate 71 69 67 Pulse Rate [ From Monitor] Respiratory 12 12 9 L Rate Blood Pressure 131/45 134/46 128/42 O2 Sat by Pulse 99 99 99 Oximetry O2 Sat by Pulse Oximetry [ Anterior Bilateral Throughout] 07/24/19 07/24/19 07/24/19 07:40 07:45 08:00 Temperature 98.3 F Pulse Rate 70 69 67 Pulse Rate [ 70 From Monitor] Respiratory 12 12 Rate Blood Pressure 124/46 130/48 O2 Sat by Pulse 100 100 Oximetry O2 Sat by Pulse Oximetry [ Anterior Bilateral Throughout] 07/24/19 07/24/19 07/24/19 08:15 08:18 08:30 Temperature Pulse Rate 67 69 70 Pulse Rate [ From Monitor] Respiratory 12 11 L Rate Blood Pressure 138/47 138/47 130/52 O2 Sat by Pulse 100 100 100 Oximetry O2 Sat by Pulse Oximetry [ Anterior Bilateral Throughout] 07/24/19 07/24/19 07/24/19 08:45 09:00 09:05 Temperature 98.3 F Pulse Rate 68 68 67 Pulse Rate [ From Monitor] Respiratory 12 12 18 Rate Blood Pressure 128/49 130/47 130/47 O2 Sat by Pulse 99 100 Oximetry O2 Sat by Pulse 100 Oximetry [ Anterior Bilateral Throughout] 07/24/19 07/24/19 07/24/19 09:15 09:30 09:45 Temperature Pulse Rate 68 72 71 Pulse Rate [ From Monitor] Respiratory 12 11 L 14 Rate Blood Pressure 123/97 101/40 101/40 O2 Sat by Pulse 99 99 100 Oximetry O2 Sat by Pulse Oximetry [ Anterior Bilateral Throughout] 07/24/19 07/24/19 07/24/19 10:00 10:15 10:30 Temperature Pulse Rate 72 72 67 Pulse Rate [ From Monitor] Respiratory 16 12 12 Rate Blood Pressure 92/38 101/40 99/32 O2 Sat by Pulse 100 100 100 Oximetry O2 Sat by Pulse Oximetry [ Anterior Bilateral Throughout] 07/24/19 07/24/19 07/24/19 10:45 11:00 11:12 Temperature Pulse Rate 67 69 68 Pulse Rate [ From Monitor] Respiratory 12 13 Rate Blood Pressure 95/38 104/42 104/42 O2 Sat by Pulse 100 100 100 Oximetry O2 Sat by Pulse Oximetry [ Anterior Bilateral Throughout] 07/24/19 07/24/19 07/24/19 11:15 11:30 11:45 Temperature Pulse Rate 69 67 68 Pulse Rate [ From Monitor] Respiratory 14 12 12 Rate Blood Pressure 94/38 103/35 108/37 O2 Sat by Pulse 100 100 100 Oximetry O2 Sat by Pulse Oximetry [ Anterior Bilateral Throughout] 07/24/19 07/24/19 07/24/19 12:00 12:05 12:15 Temperature 99.0 F Pulse Rate 69 66 67 Pulse Rate [ 69 From Monitor] Respiratory 12 12 Rate Blood Pressure 89/35 102/37 98/35 O2 Sat by Pulse 100 100 Oximetry O2 Sat by Pulse Oximetry [ Anterior Bilateral Throughout] 07/24/19 07/24/19 07/24/19 12:30 12:35 12:45 Temperature Pulse Rate 67 68 64 Pulse Rate [ From Monitor] Respiratory 12 12 Rate Blood Pressure 105/35 105/35 101/37 O2 Sat by Pulse 100 100 Oximetry O2 Sat by Pulse Oximetry [ Anterior Bilateral Throughout] 07/24/19 07/24/19 07/24/19 12:50 13:00 13:15 Temperature 99.0 F Pulse Rate 64 64 67 Pulse Rate [ From Monitor] Respiratory 12 12 13 Rate Blood Pressure 101/37 101/39 111/32 O2 Sat by Pulse 100 100 Oximetry O2 Sat by Pulse Oximetry [ Anterior Bilateral Throughout] 07/24/19 07/24/19 07/24/19 13:17 13:18 13:21 Temperature Pulse Rate 67 64 62 Pulse Rate [ From Monitor] Respiratory 12 12 12 Rate Blood Pressure 111/39 111/32 114/44 O2 Sat by Pulse 100 100 100 Oximetry O2 Sat by Pulse Oximetry [ Anterior Bilateral Throughout] 07/24/19 07/24/19 07/24/19 13:22 13:25 13:27 Temperature Pulse Rate 62 62 61 Pulse Rate [ From Monitor] Respiratory 12 12 12 Rate Blood Pressure 119/43 119/43 123/50 O2 Sat by Pulse 100 100 100 Oximetry O2 Sat by Pulse Oximetry [ Anterior Bilateral Throughout] 07/24/19 07/24/19 07/24/19 13:28 13:31 13:33 Temperature Pulse Rate 62 62 62 Pulse Rate [ From Monitor] Respiratory 12 12 12 Rate Blood Pressure 123/45 123/45 119/43 O2 Sat by Pulse 100 100 100 Oximetry O2 Sat by Pulse Oximetry [ Anterior Bilateral Throughout] 07/24/19 07/24/19 07/24/19 13:34 13:37 13:39 Temperature Pulse Rate 63 63 63 Pulse Rate [ From Monitor] Respiratory 12 12 12 Rate Blood Pressure 126/49 126/49 127/49 O2 Sat by Pulse 100 100 100 Oximetry O2 Sat by Pulse Oximetry [ Anterior Bilateral Throughout] 07/24/19 07/24/19 07/24/19 13:40 13:43 13:44 Temperature Pulse Rate 64 65 65 Pulse Rate [ From Monitor] Respiratory 11 L 11 L 12 Rate Blood Pressure 140/60 140/60 112/42 O2 Sat by Pulse 100 100 100 Oximetry O2 Sat by Pulse Oximetry [ Anterior Bilateral Throughout] 07/24/19 07/24/19 07/24/19 13:47 13:49 13:51 Temperature Pulse Rate 67 69 67 Pulse Rate [ From Monitor] Respiratory 11 L 10 L 17 Rate Blood Pressure 102/40 102/40 95/38 O2 Sat by Pulse 100 100 100 Oximetry O2 Sat by Pulse Oximetry [ Anterior Bilateral Throughout] 07/24/19 07/24/19 13:52 14:15 Temperature Pulse Rate 67 Pulse Rate [ From Monitor] Respiratory 9 L Rate Blood Pressure 113/57 O2 Sat by Pulse 100 100 Oximetry O2 Sat by Pulse Oximetry [ Anterior Bilateral Throughout] Constitutional: appears uncomfortable, other (middle aged thin female, normocephalic with mildly increased resp effort on MVS) Eyes: non-icteric ENT: oropharynx dry, other (s/p trach size #8 to MVS) Neck: supple, no lymphadenopathy, no JVD Effort: mildly labored Ascultation: Bilateral: diminished breath sounds, rhonchi Percussion: Bilateral: not dull Cardiovascular: regular rate and rhythm Gastrointestinal: normoactive bowel sounds, soft, non-tender, non-distended Integumentary: normal, decubitus ulcer (sacral) Extremities: no cyanosis, no edema, pink and warm, pulses normal Neurologic: unable to assess Psychiatric: other (unable to assess re: AMS) CBC and BMP: 07/20/19 05:01 07/25/19 09:54 ABG, PT/INR, D-dimer: ABG ABG pH 7.425 pH Units (7.350-7.450) 07/13/19 05:50 ABG pCO2 42.9 mm Hg 07/13/19 05:50 ABG pO2 110.8 mm Hg (80.0-90.0) H 07/13/19 05:50 ABG O2 Saturation 98.0 % (95.0-99.0) 07/13/19 05:50 PT/INR, D-dimer PT 13.5 Sec. (12.2-14.9) 07/23/19 04:41 INR 1.02 (0.87-1.13) 07/23/19 04:41 Abnormal lab findings: Abnormal Labs 07/03/19 07/03/19 07/03/19 01:00 01:00 01:00 WBC 17.9 H RBC Hgb Hct RDW 17.8 H Plt Count Lymph % (Auto) 11.7 L [place] % (Auto) [place] # 1.0 H Seg Neutrophils % 82.1 H Seg Neuts % (Manual) Seg Neutrophils # 14.7 H Seg Neutrophils # Man Monocytes # (Manual) ABG pH ABG pO2 ABG HCO3 ABG O2 Saturation ABG Base Excess ABG Hemoglobin Oxyhemoglobin Sodium Chloride 92.9 L Carbon Dioxide BUN 45 H Creatinine 5.3 H Glucose 229 H POC Glucose Hemoglobin A1c Calcium 10.5 H Phosphorus NT-Pro-B Natriuret Pep > 39166 H Albumin 2.5 L 07/03/19 07/03/19 07/03/19 01:00 01:35 04:30 WBC RBC Hgb Hct RDW Plt Count Lymph % (Auto) [place] % (Auto) [place] # Seg Neutrophils % Seg Neuts % (Manual) Seg Neutrophils # Seg Neutrophils # Man Monocytes # (Manual) ABG pH 7.555 H 7.489 H ABG pO2 65.4 L 149.9 H ABG HCO3 28.9 H 27.9 H ABG O2 Saturation ABG Base Excess 6.7 H 4.5 H ABG Hemoglobin Oxyhemoglobin 94.0 L Sodium Chloride Carbon Dioxide BUN Creatinine Glucose POC Glucose Hemoglobin A1c 7.0 H Calcium Phosphorus NT-Pro-B Natriuret Pep Albumin 07/03/19 07/03/19 07/03/19 12:10 17:35 23:59 WBC RBC Hgb Hct RDW Plt Count Lymph % (Auto) [place] % (Auto) [place] # Seg Neutrophils % Seg Neuts % (Manual) Seg Neutrophils # Seg Neutrophils # Man Monocytes # (Manual) ABG pH ABG pO2 ABG HCO3 ABG O2 Saturation ABG Base Excess ABG Hemoglobin Oxyhemoglobin Sodium Chloride Carbon Dioxide BUN Creatinine Glucose POC Glucose 246 H 163 H 112 H Hemoglobin A1c Calcium Phosphorus NT-Pro-B Natriuret Pep Albumin 07/04/19 07/04/19 07/04/19 04:24 04:56 04:56 WBC 17.3 H RBC Hgb Hct RDW 18.0 H Plt Count Lymph % (Auto) 8.7 L [place] % (Auto) [place] # 0.9 H Seg Neutrophils % 85.1 H Seg Neuts % (Manual) Seg Neutrophils # 14.8 H Seg Neutrophils # Man Monocytes # (Manual) ABG pH 7.496 H ABG pO2 74.0 L ABG HCO3 28.1 H ABG O2 Saturation ABG Base Excess 4.7 H ABG Hemoglobin Oxyhemoglobin 93.9 L Sodium Chloride 95.5 L Carbon Dioxide BUN 26 H Creatinine 3.4 H Glucose 145 H POC Glucose Hemoglobin A1c Calcium Phosphorus NT-Pro-B Natriuret Pep Albumin 07/04/19 07/04/19 07/05/19 07:04 17:56 01:45 WBC RBC Hgb Hct RDW Plt Count Lymph % (Auto) [place] % (Auto) [place] # Seg Neutrophils % Seg Neuts % (Manual) Seg Neutrophils # Seg Neutrophils # Man Monocytes # (Manual) ABG pH ABG pO2 ABG HCO3 ABG O2 Saturation ABG Base Excess ABG Hemoglobin Oxyhemoglobin Sodium Chloride Carbon Dioxide BUN Creatinine Glucose POC Glucose 162 H 273 H 148 H Hemoglobin A1c Calcium Phosphorus NT-Pro-B Natriuret Pep Albumin 07/05/19 07/05/19 07/05/19 03:07 03:07 05:57 WBC 18.7 H RBC Hgb Hct RDW 17.7 H Plt Count Lymph % (Auto) 7.6 L [place] % (Auto) [place] # 1.2 H Seg Neutrophils % 84.2 H Seg Neuts % (Manual) Seg Neutrophils # 15.7 H Seg Neutrophils # Man Monocytes # (Manual) ABG pH ABG pO2 ABG HCO3 ABG O2 Saturation ABG Base Excess ABG Hemoglobin Oxyhemoglobin Sodium Chloride 94.7 L 95.6 L Carbon Dioxide 19 L BUN 23 H 26 H Creatinine 2.7 H 2.9 H Glucose 161 H 179 H POC Glucose Hemoglobin A1c Calcium 10.3 H 10.5 H Phosphorus 5.20 H D NT-Pro-B Natriuret Pep Albumin 07/05/19 07/05/19 07/05/19 06:50 07:52 09:06 WBC 16.8 H RBC Hgb Hct RDW 18.1 H Plt Count Lymph % (Auto) 8.0 L [place] % (Auto) [place] # 1.1 H Seg Neutrophils % 84.4 H Seg Neuts % (Manual) Seg Neutrophils # 14.2 H Seg Neutrophils # Man Monocytes # (Manual) ABG pH ABG pO2 ABG HCO3 ABG O2 Saturation ABG Base Excess ABG Hemoglobin 11.7 L Oxyhemoglobin 94.6 L Sodium Chloride Carbon Dioxide BUN Creatinine Glucose POC Glucose 195 H Hemoglobin A1c Calcium Phosphorus NT-Pro-B Natriuret Pep Albumin 07/05/19 07/05/19 07/06/19 12:26 17:53 01:03 WBC RBC Hgb Hct RDW Plt Count Lymph % (Auto) [place] % (Auto) [place] # Seg Neutrophils % Seg Neuts % (Manual) Seg Neutrophils # Seg Neutrophils # Man Monocytes # (Manual) ABG pH ABG pO2 ABG HCO3 ABG O2 Saturation ABG Base Excess ABG Hemoglobin Oxyhemoglobin Sodium Chloride Carbon Dioxide BUN Creatinine Glucose POC Glucose 222 H 214 H 217 H Hemoglobin A1c Calcium Phosphorus NT-Pro-B Natriuret Pep Albumin 07/06/19 07/06/19 07/06/19 03:45 04:37 04:37 WBC 15.7 H RBC Hgb Hct RDW 17.9 H Plt Count Lymph % (Auto) 9.3 L [place] % (Auto) 8.2 H [place] # 1.3 H Seg Neutrophils % 81.5 H Seg Neuts % (Manual) Seg Neutrophils # 12.8 H Seg Neutrophils # Man Monocytes # (Manual) ABG pH ABG pO2 67.1 L ABG HCO3 ABG O2 Saturation 93.3 L ABG Base Excess ABG Hemoglobin Oxyhemoglobin 91.2 L Sodium Chloride 97.5 L Carbon Dioxide 20 L BUN 50 H Creatinine 4.5 H D Glucose 192 H POC Glucose Hemoglobin A1c Calcium Phosphorus 5.80 H NT-Pro-B Natriuret Pep Albumin 07/06/19 07/06/19 07/06/19 06:10 13:47 18:40 WBC RBC Hgb Hct RDW Plt Count Lymph % (Auto) [place] % (Auto) [place] # Seg Neutrophils % Seg Neuts % (Manual) Seg Neutrophils # Seg Neutrophils # Man Monocytes # (Manual) ABG pH ABG pO2 ABG HCO3 ABG O2 Saturation ABG Base Excess ABG Hemoglobin Oxyhemoglobin Sodium Chloride Carbon Dioxide BUN Creatinine Glucose POC Glucose 214 H 233 H 225 H Hemoglobin A1c Calcium Phosphorus NT-Pro-B Natriuret Pep Albumin 07/07/19 07/07/19 07/07/19 00:11 04:30 05:33 WBC RBC Hgb Hct RDW Plt Count Lymph % (Auto) [place] % (Auto) [place] # Seg Neutrophils % Seg Neuts % (Manual) Seg Neutrophils # Seg Neutrophils # Man Monocytes # (Manual) ABG pH ABG pO2 113.7 H ABG HCO3 28.6 H ABG O2 Saturation ABG Base Excess 4.0 H ABG Hemoglobin 11.3 L Oxyhemoglobin Sodium Chloride Carbon Dioxide BUN Creatinine Glucose POC Glucose 288 H 204 H Hemoglobin A1c Calcium Phosphorus NT-Pro-B Natriuret Pep Albumin 07/07/19 07/07/19 07/07/19 05:38 05:38 11:39 WBC 15.0 H RBC Hgb Hct RDW 18.3 H Plt Count Lymph % (Auto) 10.9 L [place] % (Auto) 8.9 H [place] # 1.3 H Seg Neutrophils % 79.6 H Seg Neuts % (Manual) Seg Neutrophils # 11.9 H Seg Neutrophils # Man Monocytes # (Manual) ABG pH ABG pO2 ABG HCO3 ABG O2 Saturation ABG Base Excess ABG Hemoglobin Oxyhemoglobin Sodium Chloride 94.8 L Carbon Dioxide BUN 32 H Creatinine 2.8 H Glucose 236 H POC Glucose 309 H Hemoglobin A1c Calcium 10.6 H Phosphorus NT-Pro-B Natriuret Pep Albumin 07/07/19 07/07/19 07/08/19 18:09 23:30 03:49 WBC RBC Hgb Hct RDW Plt Count Lymph % (Auto) [place] % (Auto) [place] # Seg Neutrophils % Seg Neuts % (Manual) Seg Neutrophils # Seg Neutrophils # Man Monocytes # (Manual) ABG pH ABG pO2 116.2 H ABG HCO3 27.7 H ABG O2 Saturation ABG Base Excess ABG Hemoglobin 11.2 L Oxyhemoglobin Sodium Chloride Carbon Dioxide BUN Creatinine Glucose POC Glucose 280 H 398 H Hemoglobin A1c Calcium Phosphorus NT-Pro-B Natriuret Pep Albumin 07/08/19 07/08/19 07/08/19 04:38 04:38 05:37 WBC 13.5 H RBC Hgb Hct RDW 18.3 H Plt Count Lymph % (Auto) [place] % (Auto) 9.5 H [place] # 1.3 H Seg Neutrophils % 75.6 H Seg Neuts % (Manual) Seg Neutrophils # 10.2 H Seg Neutrophils # Man Monocytes # (Manual) ABG pH ABG pO2 ABG HCO3 ABG O2 Saturation ABG Base Excess ABG Hemoglobin Oxyhemoglobin Sodium Chloride 94.9 L Carbon Dioxide BUN 64 H Creatinine 4.2 H Glucose 288 H POC Glucose 270 H Hemoglobin A1c Calcium 10.9 H Phosphorus NT-Pro-B Natriuret Pep Albumin 07/08/19 07/08/19 07/08/19 11:47 17:36 23:23 WBC RBC Hgb Hct RDW Plt Count Lymph % (Auto) [place] % (Auto) [place] # Seg Neutrophils % Seg Neuts % (Manual) Seg Neutrophils # Seg Neutrophils # Man Monocytes # (Manual) ABG pH ABG pO2 ABG HCO3 ABG O2 Saturation ABG Base Excess ABG Hemoglobin Oxyhemoglobin Sodium Chloride Carbon Dioxide BUN Creatinine Glucose POC Glucose 211 H 259 H 276 H Hemoglobin A1c Calcium Phosphorus NT-Pro-B Natriuret Pep Albumin 07/09/19 07/09/19 07/09/19 04:08 04:29 04:29 WBC 12.8 H RBC Hgb Hct RDW 17.7 H Plt Count Lymph % (Auto) 12.5 L [place] % (Auto) 8.4 H [place] # 1.1 H Seg Neutrophils % 77.0 H Seg Neuts % (Manual) Seg Neutrophils # 9.9 H Seg Neutrophils # Man Monocytes # (Manual) ABG pH 7.471 H ABG pO2 141.8 H ABG HCO3 32.3 H ABG O2 Saturation ABG Base Excess 7.8 H ABG Hemoglobin 11.3 L Oxyhemoglobin Sodium Chloride 94.1 L Carbon Dioxide BUN 36 H Creatinine 2.6 H Glucose 217 H POC Glucose Hemoglobin A1c Calcium 11.0 H Phosphorus NT-Pro-B Natriuret Pep Albumin 07/09/19 07/09/19 07/09/19 05:25 10:46 13:07 WBC RBC Hgb Hct RDW Plt Count Lymph % (Auto) [place] % (Auto) [place] # Seg Neutrophils % Seg Neuts % (Manual) Seg Neutrophils # Seg Neutrophils # Man Monocytes # (Manual) ABG pH ABG pO2 113.2 H ABG HCO3 30.9 H ABG O2 Saturation ABG Base Excess 6.0 H ABG Hemoglobin 10.5 L Oxyhemoglobin Sodium Chloride Carbon Dioxide BUN Creatinine Glucose POC Glucose 190 H 315 H Hemoglobin A1c Calcium Phosphorus NT-Pro-B Natriuret Pep Albumin 07/09/19 07/09/19 07/10/19 17:59 23:18 04:00 WBC RBC Hgb Hct RDW Plt Count Lymph % (Auto) [place] % (Auto) [place] # Seg Neutrophils % Seg Neuts % (Manual) Seg Neutrophils # Seg Neutrophils # Man Monocytes # (Manual) ABG pH ABG pO2 77.3 L ABG HCO3 30.4 H ABG O2 Saturation ABG Base Excess 5.1 H ABG Hemoglobin Oxyhemoglobin Sodium Chloride Carbon Dioxide BUN Creatinine Glucose POC Glucose 204 H 199 H Hemoglobin A1c Calcium Phosphorus NT-Pro-B Natriuret Pep Albumin 07/10/19 07/10/19 07/10/19 04:55 04:55 05:39 WBC 23.9 H RBC Hgb Hct RDW 18.1 H Plt Count Lymph % (Auto) [place] % (Auto) [place] # Seg Neutrophils % Seg Neuts % (Manual) 81.0 H Seg Neutrophils # Seg Neutrophils # Man 19.4 H Monocytes # (Manual) 1.0 H ABG pH ABG pO2 ABG HCO3 ABG O2 Saturation ABG Base Excess ABG Hemoglobin Oxyhemoglobin Sodium 133 L Chloride 88.0 L Carbon Dioxide BUN 64 H Creatinine 3.7 H Glucose 250 H POC Glucose 288 H Hemoglobin A1c Calcium 11.1 H Phosphorus NT-Pro-B Natriuret Pep Albumin 07/10/19 07/10/19 07/10/19 12:02 18:32 23:37 WBC RBC Hgb Hct RDW Plt Count Lymph % (Auto) [place] % (Auto) [place] # Seg Neutrophils % Seg Neuts % (Manual) Seg Neutrophils # Seg Neutrophils # Man Monocytes # (Manual) ABG pH ABG pO2 ABG HCO3 ABG O2 Saturation ABG Base Excess ABG Hemoglobin Oxyhemoglobin Sodium Chloride Carbon Dioxide BUN Creatinine Glucose POC Glucose 204 H 288 H 189 H Hemoglobin A1c Calcium Phosphorus NT-Pro-B Natriuret Pep Albumin 07/11/19 07/11/19 07/11/19 05:31 06:10 06:10 WBC 16.6 H RBC 3.60 L Hgb Hct RDW 16.8 H Plt Count Lymph % (Auto) [place] % (Auto) [place] # Seg Neutrophils % Seg Neuts % (Manual) Seg Neutrophils # Seg Neutrophils # Man Monocytes # (Manual) ABG pH ABG pO2 ABG HCO3 ABG O2 Saturation ABG Base Excess ABG Hemoglobin Oxyhemoglobin Sodium 130 L Chloride 87.4 L Carbon Dioxide BUN 47 H Creatinine 2.4 H Glucose 138 H POC Glucose 135 H Hemoglobin A1c Calcium 10.8 H Phosphorus NT-Pro-B Natriuret Pep Albumin 07/11/19 07/11/19 07/11/19 12:28 18:05 23:49 WBC RBC Hgb Hct RDW Plt Count Lymph % (Auto) [place] % (Auto) [place] # Seg Neutrophils % Seg Neuts % (Manual) Seg Neutrophils # Seg Neutrophils # Man Monocytes # (Manual) ABG pH ABG pO2 ABG HCO3 ABG O2 Saturation ABG Base Excess ABG Hemoglobin Oxyhemoglobin Sodium Chloride Carbon Dioxide BUN Creatinine Glucose POC Glucose 243 H 177 H 163 H Hemoglobin A1c Calcium Phosphorus NT-Pro-B Natriuret Pep Albumin 07/12/19 07/12/19 07/12/19 05:27 05:43 05:43 WBC 15.0 H RBC Hgb Hct RDW 17.5 H Plt Count Lymph % (Auto) [place] % (Auto) [place] # Seg Neutrophils % Seg Neuts % (Manual) Seg Neutrophils # Seg Neutrophils # Man Monocytes # (Manual) ABG pH ABG pO2 ABG HCO3 ABG O2 Saturation ABG Base Excess ABG Hemoglobin Oxyhemoglobin Sodium 128 L Chloride 85.7 L Carbon Dioxide BUN 76 H Creatinine 3.8 H D Glucose 157 H POC Glucose 156 H Hemoglobin A1c Calcium 10.8 H Phosphorus NT-Pro-B Natriuret Pep Albumin 07/12/19 07/12/19 07/13/19 12:03 18:30 00:03 WBC RBC Hgb Hct RDW Plt Count Lymph % (Auto) [place] % (Auto) [place] # Seg Neutrophils % Seg Neuts % (Manual) Seg Neutrophils # Seg Neutrophils # Man Monocytes # (Manual) ABG pH ABG pO2 ABG HCO3 ABG O2 Saturation ABG Base Excess ABG Hemoglobin Oxyhemoglobin Sodium Chloride Carbon Dioxide BUN Creatinine Glucose POC Glucose 162 H 183 H 187 H Hemoglobin A1c Calcium Phosphorus NT-Pro-B Natriuret Pep Albumin 07/13/19 07/13/19 07/13/19 05:50 05:56 07:50 WBC 13.5 H RBC 3.37 L Hgb 9.6 L Hct 28.8 L RDW 17.4 H Plt Count Lymph % (Auto) [place] % (Auto) [place] # Seg Neutrophils % Seg Neuts % (Manual) Seg Neutrophils # Seg Neutrophils # Man Monocytes # (Manual) ABG pH ABG pO2 110.8 H ABG HCO3 27.5 H ABG O2 Saturation ABG Base Excess ABG Hemoglobin 10.0 L Oxyhemoglobin Sodium Chloride Carbon Dioxide BUN Creatinine Glucose POC Glucose 216 H Hemoglobin A1c Calcium Phosphorus NT-Pro-B Natriuret Pep Albumin 07/13/19 07/13/19 07/13/19 07:50 13:18 18:09 WBC RBC Hgb Hct RDW Plt Count Lymph % (Auto) [place] % (Auto) [place] # Seg Neutrophils % Seg Neuts % (Manual) Seg Neutrophils # Seg Neutrophils # Man Monocytes # (Manual) ABG pH ABG pO2 ABG HCO3 ABG O2 Saturation ABG Base Excess ABG Hemoglobin Oxyhemoglobin Sodium 126 L Chloride 80.8 L Carbon Dioxide 21 L BUN 105 H Creatinine 4.7 H Glucose 215 H POC Glucose 187 H 202 H Hemoglobin A1c Calcium 10.3 H Phosphorus NT-Pro-B Natriuret Pep Albumin 07/13/19 07/13/19 07/14/19 19:44 23:23 04:17 WBC RBC Hgb Hct RDW 17.5 H Plt Count Lymph % (Auto) [place] % (Auto) [place] # Seg Neutrophils % Seg Neuts % (Manual) Seg Neutrophils # Seg Neutrophils # Man Monocytes # (Manual) ABG pH ABG pO2 ABG HCO3 ABG O2 Saturation ABG Base Excess ABG Hemoglobin Oxyhemoglobin Sodium 133 L D Chloride Carbon Dioxide BUN Creatinine Glucose POC Glucose 167 H Hemoglobin A1c Calcium Phosphorus NT-Pro-B Natriuret Pep Albumin 07/14/19 07/14/19 07/14/19 04:17 05:03 12:12 WBC RBC Hgb Hct RDW Plt Count Lymph % (Auto) [place] % (Auto) [place] # Seg Neutrophils % Seg Neuts % (Manual) Seg Neutrophils # Seg Neutrophils # Man Monocytes # (Manual) ABG pH ABG pO2 ABG HCO3 ABG O2 Saturation ABG Base Excess ABG Hemoglobin Oxyhemoglobin Sodium 131 L Chloride 88.8 L Carbon Dioxide BUN 47 H Creatinine 2.6 H Glucose 131 H POC Glucose 142 H 246 H Hemoglobin A1c Calcium Phosphorus NT-Pro-B Natriuret Pep Albumin 0207/15/19 07/15/19 18:30 00:35 04:51 WBC RBC 3.51 L Hgb 9.9 L Hct 30.0 L RDW 17.6 H Plt Count 510 H Lymph % (Auto) [place] % (Auto) [place] # Seg Neutrophils % 72.4 H Seg Neuts % (Manual) Seg Neutrophils # Seg Neutrophils # Man Monocytes # (Manual) ABG pH ABG pO2 ABG HCO3 ABG O2 Saturation ABG Base Excess ABG Hemoglobin Oxyhemoglobin Sodium Chloride Carbon Dioxide BUN Creatinine Glucose POC Glucose 114 H 164 H Hemoglobin A1c Calcium Phosphorus NT-Pro-B Natriuret Pep Albumin 07/15/19 07/15/19 07/15/19 04:51 06:21 11:55 WBC RBC Hgb Hct RDW Plt Count Lymph % (Auto) [place] % (Auto) [place] # Seg Neutrophils % Seg Neuts % (Manual) Seg Neutrophils # Seg Neutrophils # Man Monocytes # (Manual) ABG pH ABG pO2 ABG HCO3 ABG O2 Saturation ABG Base Excess ABG Hemoglobin Oxyhemoglobin Sodium 134 L Chloride 88.7 L Carbon Dioxide BUN 78 H Creatinine 4.0 H D Glucose 141 H POC Glucose 135 H 172 H Hemoglobin A1c Calcium 10.4 H Phosphorus NT-Pro-B Natriuret Pep Albumin 07/15/19 07/15/19 07/15/19 17:46 18:10 23:20 WBC RBC Hgb Hct RDW Plt Count Lymph % (Auto) [place] % (Auto) [place] # Seg Neutrophils % Seg Neuts % (Manual) Seg Neutrophils # Seg Neutrophils # Man Monocytes # (Manual) ABG pH ABG pO2 ABG HCO3 ABG O2 Saturation ABG Base Excess ABG Hemoglobin Oxyhemoglobin Sodium Chloride Carbon Dioxide BUN Creatinine Glucose POC Glucose 203 H 237 H 184 H Hemoglobin A1c Calcium Phosphorus NT-Pro-B Natriuret Pep Albumin 07/16/19 07/16/19 07/16/19 04:44 04:44 05:44 WBC RBC Hgb Hct RDW 17.5 H Plt Count 605 H Lymph % (Auto) [place] % (Auto) [place] # Seg Neutrophils % 72.6 H Seg Neuts % (Manual) Seg Neutrophils # Seg Neutrophils # Man Monocytes # (Manual) ABG pH ABG pO2 ABG HCO3 ABG O2 Saturation ABG Base Excess ABG Hemoglobin Oxyhemoglobin Sodium Chloride 93.4 L Carbon Dioxide BUN 46 H Creatinine 2.6 H Glucose 125 H POC Glucose 147 H Hemoglobin A1c Calcium 10.5 H Phosphorus NT-Pro-B Natriuret Pep Albumin 07/16/19 07/16/19 07/16/19 12:17 17:55 18:06 WBC RBC Hgb Hct RDW Plt Count Lymph % (Auto) [place] % (Auto) [place] # Seg Neutrophils % Seg Neuts % (Manual) Seg Neutrophils # Seg Neutrophils # Man Monocytes # (Manual) ABG pH ABG pO2 ABG HCO3 ABG O2 Saturation ABG Base Excess ABG Hemoglobin Oxyhemoglobin Sodium Chloride Carbon Dioxide BUN Creatinine Glucose POC Glucose 222 H 129 H 121 H Hemoglobin A1c Calcium Phosphorus NT-Pro-B Natriuret Pep Albumin 07/17/19 07/17/19 07/17/19 00:31 03:58 03:58 WBC RBC Hgb Hct RDW 17.7 H Plt Count 647 H Lymph % (Auto) [place] % (Auto) 7.7 H [place] # Seg Neutrophils % Seg Neuts % (Manual) Seg Neutrophils # Seg Neutrophils # Man Monocytes # (Manual) ABG pH ABG pO2 ABG HCO3 ABG O2 Saturation ABG Base Excess ABG Hemoglobin Oxyhemoglobin Sodium 133 L Chloride 89.4 L Carbon Dioxide BUN 81 H Creatinine 3.5 H Glucose 139 H POC Glucose 195 H Hemoglobin A1c Calcium 10.8 H Phosphorus NT-Pro-B Natriuret Pep Albumin 07/17/19 07/17/19 07/17/19 05:50 13:06 17:50 WBC RBC Hgb Hct RDW Plt Count Lymph % (Auto) [place] % (Auto) [place] # Seg Neutrophils % Seg Neuts % (Manual) Seg Neutrophils # Seg Neutrophils # Man Monocytes # (Manual) ABG pH ABG pO2 ABG HCO3 ABG O2 Saturation ABG Base Excess ABG Hemoglobin Oxyhemoglobin Sodium Chloride Carbon Dioxide BUN Creatinine Glucose POC Glucose 137 H 176 H 154 H Hemoglobin A1c Calcium Phosphorus NT-Pro-B Natriuret Pep Albumin 07/17/19 07/18/19 07/18/19 23:10 05:15 05:15 WBC RBC Hgb Hct RDW 17.4 H Plt Count 645 H Lymph % (Auto) [place] % (Auto) [place] # Seg Neutrophils % 73.0 H Seg Neuts % (Manual) Seg Neutrophils # Seg Neutrophils # Man Monocytes # (Manual) ABG pH ABG pO2 ABG HCO3 ABG O2 Saturation ABG Base Excess ABG Hemoglobin Oxyhemoglobin Sodium Chloride 95.8 L Carbon Dioxide BUN 44 H Creatinine 2.3 H Glucose 164 H POC Glucose 186 H Hemoglobin A1c Calcium 10.6 H Phosphorus NT-Pro-B Natriuret Pep Albumin 07/18/19 07/18/19 07/18/19 05:55 10:24 11:57 WBC RBC Hgb Hct RDW Plt Count Lymph % (Auto) [place] % (Auto) [place] # Seg Neutrophils % Seg Neuts % (Manual) Seg Neutrophils # Seg Neutrophils # Man Monocytes # (Manual) ABG pH ABG pO2 ABG HCO3 ABG O2 Saturation ABG Base Excess ABG Hemoglobin Oxyhemoglobin Sodium Chloride Carbon Dioxide BUN Creatinine Glucose POC Glucose 146 H 161 H 236 H Hemoglobin A1c Calcium Phosphorus NT-Pro-B Natriuret Pep Albumin 07/18/19 07/18/19 07/19/19 18:15 18:34 00:56 WBC RBC Hgb Hct RDW Plt Count Lymph % (Auto) [place] % (Auto) [place] # Seg Neutrophils % Seg Neuts % (Manual) Seg Neutrophils # Seg Neutrophils # Man Monocytes # (Manual) ABG pH ABG pO2 ABG HCO3 ABG O2 Saturation ABG Base Excess ABG Hemoglobin Oxyhemoglobin Sodium Chloride Carbon Dioxide BUN Creatinine Glucose POC Glucose 110 H 109 H 245 H Hemoglobin A1c Calcium Phosphorus NT-Pro-B Natriuret Pep Albumin 07/19/19 07/19/19 07/19/19 05:31 05:31 06:11 WBC RBC 3.48 L Hgb Hct 30.1 L RDW 17.5 H Plt Count 599 H Lymph % (Auto) [place] % (Auto) [place] # Seg Neutrophils % Seg Neuts % (Manual) 80.0 H Seg Neutrophils # Seg Neutrophils # Man Monocytes # (Manual) ABG pH ABG pO2 ABG HCO3 ABG O2 Saturation ABG Base Excess ABG Hemoglobin Oxyhemoglobin Sodium Chloride 93.6 L Carbon Dioxide BUN 81 H Creatinine 3.7 H D Glucose 234 H POC Glucose 204 H Hemoglobin A1c Calcium 10.4 H Phosphorus NT-Pro-B Natriuret Pep Albumin 07/19/19 07/19/19 07/20/19 12:19 23:46 05:01 WBC RBC 3.13 L Hgb 8.9 L Hct 26.7 L RDW 17.4 H Plt Count 552 H Lymph % (Auto) [place] % (Auto) [place] # Seg Neutrophils % Seg Neuts % (Manual) Seg Neutrophils # Seg Neutrophils # Man Monocytes # (Manual) ABG pH ABG pO2 ABG HCO3 ABG O2 Saturation ABG Base Excess ABG Hemoglobin Oxyhemoglobin Sodium Chloride Carbon Dioxide BUN Creatinine Glucose POC Glucose 187 H 143 H Hemoglobin A1c Calcium Phosphorus NT-Pro-B Natriuret Pep Albumin 07/20/19 07/20/19 07/20/19 05:01 06:42 08:18 WBC RBC Hgb Hct RDW Plt Count Lymph % (Auto) [place] % (Auto) [place] # Seg Neutrophils % Seg Neuts % (Manual) Seg Neutrophils # Seg Neutrophils # Man Monocytes # (Manual) ABG pH ABG pO2 ABG HCO3 ABG O2 Saturation ABG Base Excess ABG Hemoglobin Oxyhemoglobin Sodium 134 L Chloride 88.4 L Carbon Dioxide 21 L BUN 110 H Creatinine 5.1 H Glucose 168 H POC Glucose 167 H 147 H Hemoglobin A1c Calcium Phosphorus NT-Pro-B Natriuret Pep Albumin 07/20/19 07/20/19 07/20/19 11:41 18:23 23:24 WBC RBC Hgb Hct RDW Plt Count Lymph % (Auto) [place] % (Auto) [place] # Seg Neutrophils % Seg Neuts % (Manual) Seg Neutrophils # Seg Neutrophils # Man Monocytes # (Manual) ABG pH ABG pO2 ABG HCO3 ABG O2 Saturation ABG Base Excess ABG Hemoglobin Oxyhemoglobin Sodium Chloride Carbon Dioxide BUN Creatinine Glucose POC Glucose 202 H 180 H 181 H Hemoglobin A1c Calcium Phosphorus NT-Pro-B Natriuret Pep Albumin 07/21/19 07/21/19 07/21/19 05:56 12:17 18:46 WBC RBC Hgb Hct RDW Plt Count Lymph % (Auto) [place] % (Auto) [place] # Seg Neutrophils % Seg Neuts % (Manual) Seg Neutrophils # Seg Neutrophils # Man Monocytes # (Manual) ABG pH ABG pO2 ABG HCO3 ABG O2 Saturation ABG Base Excess ABG Hemoglobin Oxyhemoglobin Sodium Chloride Carbon Dioxide BUN Creatinine Glucose POC Glucose 147 H 278 H 149 H Hemoglobin A1c Calcium Phosphorus NT-Pro-B Natriuret Pep Albumin 07/22/19 07/22/19 07/22/19 00:09 05:27 11:48 WBC RBC Hgb Hct RDW Plt Count Lymph % (Auto) [place] % (Auto) [place] # Seg Neutrophils % Seg Neuts % (Manual) Seg Neutrophils # Seg Neutrophils # Man Monocytes # (Manual) ABG pH ABG pO2 ABG HCO3 ABG O2 Saturation ABG Base Excess ABG Hemoglobin Oxyhemoglobin Sodium Chloride Carbon Dioxide BUN Creatinine Glucose POC Glucose 253 H 145 H 250 H Hemoglobin A1c Calcium Phosphorus NT-Pro-B Natriuret Pep Albumin 07/22/19 07/22/19 07/23/19 17:53 23:43 06:40 WBC RBC Hgb Hct RDW Plt Count Lymph % (Auto) [place] % (Auto) [place] # Seg Neutrophils % Seg Neuts % (Manual) Seg Neutrophils # Seg Neutrophils # Man Monocytes # (Manual) ABG pH ABG pO2 ABG HCO3 ABG O2 Saturation ABG Base Excess ABG Hemoglobin Oxyhemoglobin Sodium Chloride Carbon Dioxide BUN Creatinine Glucose POC Glucose 154 H 271 H 227 H Hemoglobin A1c Calcium Phosphorus NT-Pro-B Natriuret Pep Albumin 07/23/19 07/23/19 07/23/19 11:57 18:31 23:25 WBC RBC Hgb Hct RDW Plt Count Lymph % (Auto) [place] % (Auto) [place] # Seg Neutrophils % Seg Neuts % (Manual) Seg Neutrophils # Seg Neutrophils # Man Monocytes # (Manual) ABG pH ABG pO2 ABG HCO3 ABG O2 Saturation ABG Base Excess ABG Hemoglobin Oxyhemoglobin Sodium Chloride Carbon Dioxide BUN Creatinine Glucose POC Glucose 221 H 122 H 216 H Hemoglobin A1c Calcium Phosphorus NT-Pro-B Natriuret Pep Albumin 07/24/19 07/24/19 05:13 12:02 WBC RBC Hgb Hct RDW Plt Count Lymph % (Auto) [place] % (Auto) [place] # Seg Neutrophils % Seg Neuts % (Manual) Seg Neutrophils # Seg Neutrophils # Man Monocytes # (Manual) ABG pH ABG pO2 ABG HCO3 ABG O2 Saturation ABG Base Excess ABG Hemoglobin Oxyhemoglobin Sodium Chloride Carbon Dioxide BUN Creatinine Glucose POC Glucose 172 H 154 H Hemoglobin A1c Calcium Phosphorus NT-Pro-B Natriuret Pep Albumin Chest x-ray: image reviewed Allied health notes reviewed: RT
--- NOTE | 2019-07-24 15:10 | XRay Report ---
CHEST 1 VIEW INDICATION: s/p trach. COMPARISON: 07/10/2019 FINDINGS: Support devices: Endotracheal tube has been exchanged for tracheostomy. Tracheostomy projects in expe cted position. Heart: Stable. Lungs/Pleura: There are mild atelectatic changes versus scarring in the bases. Lungs are otherwise cl ear. No significant effusion, no pneumothorax. IMPRESSION: 1. Satisfactory post tracheotomy appearance. Signer Name: Ovi Saini MD Signed: 07/24/2019 3:06 PM Workstation Name: [id number]
[2019-07-24] MEDS: risperiDONE 0.25 MG TAB PO SCH ×2 (15:15→23:32)
[2019-07-24] MEDS: VALPROIC ACID 250 MG/5 ML ORAL LIQD FEEDTUBE SCH ×2 (15:15→23:32)
[2019-07-24] MEDS: INSULIN GLARGINE 100 UNITS/ML SUB-Q SCH (18:08)
--- NOTE | 2019-07-24 20:29 | Post Anesthesia Evaluation ---
- Post Anesthesia Evaluation Patient Participated: Yes Airway Patent: Yes Stable Respiratory Function: Yes Nausea/Vomiting: No Temp > 96.8F: No Pain Manageable: Yes Adequeate Hydration: Yes Anesthesia Complications: No Block Receding Appropriately: Not Applicable Patient on Ventilator: Yes
[2019-07-24] MEDS: PANTOPRAZOLE 40 MG INJ IV SCH (23:44)
[2019-07-25] MEDS: SODIUM CHLORIDE 0.9% 1000 ML 1,000 ML IV SCH (02:30)
[2019-07-25] MEDS: hydrALAZINE 25 MG TAB PO SCH (06:21)
[2019-07-25] MEDS: INSULIN LISPRO 100 UNIT/ML SUB-Q SCH ×2 (06:22→13:07)
[2019-07-25] MEDS ORDERED: ACETAMINOPHEN 325 MG/10.15 ML ORAL LIQD UNIT DOSE FEEDTUBE PRN (08:02)
[2019-07-25] MEDS: PANTOPRAZOLE 40 MG INJ IV SCH (09:00)
[2019-07-25] MEDS: CINACALCET 30 MG TAB PO SCH (09:00)
[2019-07-25] MEDS: INSULIN GLARGINE 100 UNITS/ML SUB-Q SCH (09:00)
[2019-07-25] MEDS: HEPARIN 5,000 UNIT/1 ML VIAL SUB-Q SCH (09:00)
[2019-07-25] MEDS: VALPROIC ACID 250 MG/5 ML ORAL LIQD FEEDTUBE SCH (09:00)
[2019-07-25] MEDS: FAMOTIDINE 20 MG TAB PO SCH (09:00)
[2019-07-25] MEDS: risperiDONE 0.25 MG TAB PO SCH (09:00)
[2019-07-25] MEDS: carvediloL 25 MG TAB PO SCH (09:00)
[2019-07-25] MEDS: DOCUSATE SODIUM 100 MG/10 ML ORAL LIQD FEEDTUBE SCH (09:00)
[2019-07-25] MEDS: amLODIPine 10 MG TAB PO SCH (09:30)
--- NOTE | 2019-07-25 10:15 | Progress Note ---
Assessment and Plan Assessment and plan: Sepsis Source is unclear. Etiology may be secondary to pneumonia versus minimal cellulitis around sacral decubitus. Completed antibiotics Acute hypoxic respiratory failure -Continue mechanical ventilation per pulmonary. -Continue PSVT trials daily -Etiology secondary to CHF versus pneumonia. -Trach and PEG done 07/24 Fever of 102 Repeat blood cultures X 2 UA Urine Cx Re-consult ID Toxic metabolic encephalopathy -Neuro checks -Continue to treat underlying causes. ESRD on HD -M/W/F -Avoid nephrotoxic agents -Renal dose all meds -Nephrology following Chronic Congestive heart Failure -Monitor input and output. -Cardiology reported no evidence of volume overload Hypertension -Continue to monitor BP -Patient is normotensive off blood pressure medications. Insulin-dependent diabetes -POC BG monitoring -SSI coverage prn Hx Seizure -Continue anticonvulsant meds -Seizure precautions. Sacral decubitus ulcer CT non contrasted without evidence of fluid collection or osteomyelitis. DVT PPX -On Heparin Disposition. Discussed with case management possibility of LTAC after Trach and PEG 07/24/19: For Trach and PEG today 07/25/19 Fever of 102. Obtain blood cultures X 2, UA, Urine culture. Reconsult ID The high probability of a clinically significant, sudden or life threatening deterioration of the [respiratory] system(s) required my full and direct attention, intervention and personal management. The aggregate critical care time was [36] minutes. This time is in addition to time spent performing reported procedures but includes the following: [x] Data Review and interpretation [x] Patient assessment and monitoring of vital signs [x] Documentation [x] Medication orders and management History Interval history: Fever Trach and PEG yesterday Hospitalist Physical - Physical exam Narrative exam: GEN: Not in acute distress, on vent HEENT: Normocephalic, atraumatic, Neck: supple, No JVD,tracheostomy Lungs: Bilateral rhonchi, heart;S1 and S2 reg, no murmurs Abd:soft, non tender, non distended, normal bowel sounds, PEG Ext: No edema, no clubbing, no cyanosis Neuro: Intubated, sedated - Constitutional Vitals: Temp Pulse Resp BP Pulse Ox 102.3 F H 87 13 118/47 99 07/25/19 08:00 07/25/19 09:30 07/25/19 08:00 07/25/19 09:30 07/25/19 08:00 General appearance: Present: other (intubated on the vent) MATT score - Matt Score Age > 65: (0) No Aspirin use within the Past 7 Days: (0) No 3 or more CAD Risk Factors: (1) Yes 2 or more Angina events in past 24 hrs: (0) No Known CAD with more than 50% Stenosis: (0) No Elevated Cardiac Markers: (1) Yes ST Deviation Greater than 0.5mm: (0) No MATT Score: 2 Results - Labs CBC & Chem 7: 07/20/19 05:01 07/25/19 09:54 Labs: Laboratory Last Values WBC 9.1 K/mm3 (4.5-11.0) 07/20/19 05:01 RBC 3.13 M/mm3 (3.65-5.03) L 07/20/19 05:01 Hgb 8.9 gm/dl (10.1-14.3) L 07/20/19 05:01 Hct 26.7 % (30.3-42.9) L 07/20/19 05:01 MCV 86 fl (79-97) 07/20/19 05:01 MCH 29 pg (28-32) 07/20/19 05:01 MCHC 33 % (30-34) 07/20/19 05:01 RDW 17.4 % (13.2-15.2) H 07/20/19 05:01 Plt Count 552 K/mm3 (140-440) H 07/20/19 05:01 Lymph % (Auto) 24.3 % (13.4-35.0) 07/20/19 05:01 Evans % (Auto) 4.6 % (0.0-7.3) 07/20/19 05:01 Eos % (Auto) 3.2 % (0.0-4.3) 07/20/19 05:01 Baso % (Auto) 0.4 % (0.0-1.8) 07/20/19 05:01 Lymph # 2.2 K/mm3 (1.2-5.4) 07/20/19 05:01 Evans # 0.4 K/mm3 (0.0-0.8) 07/20/19 05:01 Eos # 0.3 K/mm3 (0.0-0.4) 07/20/19 05:01 Baso # 0.0 K/mm3 (0.0-0.1) 07/20/19 05:01 Add Manual Diff Complete 07/19/19 05:31 Total Counted 100 07/19/19 05:31 Seg Neutrophils % 67.5 % (40.0-70.0) 07/20/19 05:01 Seg Neuts % (Manual) 80.0 % (40.0-70.0) H 07/19/19 05:31 Band Neutrophils % 1.0 % 07/19/19 05:31 Lymphocytes % (Manual) 16.0 % (13.4-35.0) 07/19/19 05:31 Reactive Lymphs % (Man) 0 % 07/19/19 05:31 Monocytes % (Manual) 3.0 % (0.0-7.3) 07/19/19 05:31 Eosinophils % (Manual) 0 % (0.0-4.3) 07/19/19 05:31 Basophils % (Manual) 0 % (0.0-1.8) 07/19/19 05:31 Metamyelocytes % 0 % 07/19/19 05:31 Myelocytes % 0 % 07/19/19 05:31 Promyelocytes % 0 % 07/19/19 05:31 Blast Cells % 0 % 07/19/19 05:31 Nucleated RBC % Not Reportable 07/19/19 05:31 Seg Neutrophils # 6.1 K/mm3 (1.8-7.7) 07/20/19 05:01 Seg Neutrophils # Man 7.4 K/mm3 (1.8-7.7) 07/19/19 05:31 Band Neutrophils # 0.1 K/mm3 07/19/19 05:31 Lymphocytes # (Manual) 1.5 K/mm3 (1.2-5.4) 07/19/19 05:31 Abs React Lymphs (Man) 0.0 K/mm3 07/19/19 05:31 Monocytes # (Manual) 0.3 K/mm3 (0.0-0.8) 07/19/19 05:31 Eosinophils # (Manual) 0.0 K/mm3 (0.0-0.4) 07/19/19 05:31 Basophils # (Manual) 0.0 K/mm3 (0.0-0.1) 07/19/19 05:31 Metamyelocytes # 0.0 K/mm3 07/19/19 05:31 Myelocytes # 0.0 K/mm3 07/19/19 05:31 Promyelocytes # 0.0 K/mm3 07/19/19 05:31 Blast Cells # 0.0 K/mm3 07/19/19 05:31 WBC Morphology Not Reportable 07/19/19 05:31 Hypersegmented Neuts Not Reportable 07/19/19 05:31 Hyposegmented Neuts Not Reportable 07/19/19 05:31 Hypogranular Neuts Not Reportable 07/19/19 05:31 Smudge Cells Not Reportable 07/19/19 05:31 Toxic Granulation Not Reportable 07/19/19 05:31 Toxic Vacuolation Not Reportable 07/19/19 05:31 Dohle Bodies Not Reportable 07/19/19 05:31 Pelger-Huet Anomaly Not Reportable 07/19/19 05:31 Andrei Rods Not Reportable 07/19/19 05:31 Platelet Estimate Consistent w auto 07/19/19 05:31 Clumped Platelets Not Reportable 07/19/19 05:31 Plt Clumps, EDTA Not Reportable 07/19/19 05:31 Large Platelets Not Reportable 07/19/19 05:31 Giant Platelets Not Reportable 07/19/19 05:31 Platelet Satelliting Not Reportable 07/19/19 05:31 Plt Morphology Comment Not Reportable 07/19/19 05:31 RBC Morphology Not Reportable 07/19/19 05:31 Dimorphic RBCs Not Reportable 07/19/19 05:31 Polychromasia Not Reportable 07/19/19 05:31 Hypochromasia Not Reportable 07/19/19 05:31 Poikilocytosis Not Reportable 07/19/19 05:31 Anisocytosis 1+ 07/19/19 05:31 Microcytosis Not Reportable 07/19/19 05:31 Macrocytosis Not Reportable 07/19/19 05:31 Spherocytes Not Reportable 07/19/19 05:31 Pappenheimer Bodies Not Reportable 07/19/19 05:31 Sickle Cells Not Reportable 07/19/19 05:31 Target Cells Not Reportable 07/19/19 05:31 Tear Drop Cells Not Reportable 07/19/19 05:31 Ovalocytes Not Reportable 07/19/19 05:31 Stomatocytes Rare 07/19/19 05:31 Helmet Cells Not Reportable 07/19/19 05:31 [place] Bodies Not Reportable 07/19/19 05:31 [place] Rings Not Reportable 07/19/19 05:31 [place] Cells Not Reportable 07/19/19 05:31 Bite Cells Not Reportable 07/19/19 05:31 Crenated Cell Not Reportable 07/19/19 05:31 Elliptocytes Not Reportable 07/19/19 05:31 Acanthocytes (Spur) Not Reportable 07/19/19 05:31 Rouleaux Not Reportable 07/19/19 05:31 Hemoglobin C Crystals Not Reportable 07/19/19 05:31 Schistocytes Not Reportable 07/19/19 05:31 Malaria parasites Not Reportable 07/19/19 05:31 Tristen Bodies Not Reportable 07/19/19 05:31 Hem Pathologist Commnt No 07/19/19 05:31 PT 13.5 Sec. (12.2-14.9) 07/23/19 04:41 INR 1.02 (0.87-1.13) 07/23/19 04:41 ABG pH 7.425 pH Units (7.350-7.450) 07/13/19 05:50 ABG pCO2 42.9 mm Hg 07/13/19 05:50 ABG pO2 110.8 mm Hg (80.0-90.0) H 07/13/19 05:50 ABG HCO3 27.5 mmol/L (20.0-26.0) H 07/13/19 05:50 ABG O2 Saturation 98.0 % (95.0-99.0) 07/13/19 05:50 ABG O2 Content 13.7 (0.0-44) 07/13/19 05:50 ABG Base Excess 2.8 mmol/L (-2.0-3.0) 07/13/19 05:50 ABG Hemoglobin 10.0 gm/dl (12.0-16.0) L 07/13/19 05:50 ABG Carboxyhemoglobin 1.4 % (0.0-5.0) 07/13/19 05:50 ABG Methemoglobin 0.5 % (0.0-1.5) 07/13/19 05:50 Oxyhemoglobin 96.2 % (95.0-99.0) 07/13/19 05:50 FiO2 40 % 07/13/19 05:50 Sodium 134 mmol/L (137-145) L 07/20/19 05:01 Potassium 4.9 mmol/L (3.6-5.0) 07/20/19 05:01 Chloride 88.4 mmol/L (98-107) L 07/20/19 05:01 Carbon Dioxide 21 mmol/L (22-30) L 07/20/19 05:01 Anion Gap 30 mmol/L 07/20/19 05:01 BUN 110 mg/dL (7-17) H 07/20/19 05:01 Creatinine 5.1 mg/dL (0.7-1.2) H 07/20/19 05:01 Estimated GFR 9 ml/min 07/20/19 05:01 BUN/Creatinine Ratio 22 % 07/20/19 05:01 Glucose 168 mg/dL (65-100) H 07/20/19 05:01 POC Glucose 210 (70-105) H 07/25/19 05:19 Hemoglobin A1c 7.0 % (4-6) H 07/03/19 01:00 Lactic Acid 1.20 mmol/L (0.7-2.0) 07/03/19 04:13 Calcium 10.0 mg/dL (8.4-10.2) 07/20/19 05:01 Phosphorus 2.60 mg/dL (2.5-4.5) D 07/09/19 04:29 Total Bilirubin 0.30 mg/dL (0.1-1.2) 07/03/19 01:00 AST 22 units/L (5-40) 07/03/19 01:00 ALT 9 units/L (7-56) 07/03/19 01:00 Alkaline Phosphatase 101 units/L (35-129) 07/03/19 01:00 Ammonia 35.0 umol/L (25-60) 07/03/19 01:58 NT-Pro-B Natriuret Pep > 86646 pg/mL (0-900) H 07/03/19 01:00 Total Protein 7.0 g/dL (6.3-8.2) 07/03/19 01:00 Albumin 2.5 g/dL (3.9-5) L 07/03/19 01:00 Albumin/Globulin Ratio 0.6 % 07/03/19 01:00 TSH 2.600 mlU/mL (0.270-4.200) 07/03/19 01:00 Urine Color Yellow (Yellow) 07/03/19 Unknown Urine Turbidity Clear (Clear) 07/03/19 Unknown Urine pH 6.0 (5.0-7.0) 07/03/19 Unknown Ur Specific [place] 1.012 (1.003-1.030) 07/03/19 Unknown Urine Protein >500 mg/dL (Negative) 07/03/19 Unknown Urine Glucose (UA) >=500 mg/dL (Negative) 07/03/19 Unknown Urine Ketones Neg mg/dL (Negative) 07/03/19 Unknown Urine Blood Neg (Negative) 07/03/19 Unknown Urine Nitrite Neg (Negative) 07/03/19 Unknown Ur Reducing Substances Not Reportable 07/03/19 Unknown Urine Bilirubin Neg (Negative) 07/03/19 Unknown Urine Ictotest Not Reportable 07/03/19 Unknown Urine Urobilinogen < 2.0 mg/dL (<2.0) 07/03/19 Unknown Ur Leukocyte Esterase Neg (Negative) 07/03/19 Unknown Urine WBC (Auto) 1.0 /HPF (0.0-6.0) 07/03/19 Unknown Urine RBC (Auto) 2.0 /HPF (0.0-6.0) 07/03/19 Unknown U Epithel Cells (Auto) < 1.0 /HPF (0-13.0) 07/03/19 Unknown Urine Mucus Few /HPF 07/03/19 Unknown Random Vancomycin 18.7 ug/mL (0-40.0) 07/08/19 04:38 Influenza A (Rapid) Negative (Negative) 07/05/19 14:30 Influenza B (Rapid) Negative (Negative) 07/05/19 14:30 Active Medications - Current Medications Current Medications: Generic Name Dose Route Start Last Admin Trade Name Freq PRN Reason Stop Dose Admin Acetaminophen 650 mg 07/25/19 08:02 07/25/19 08:24 Tylenol FEEDTUBE 650 mg Q6H PRN Administration Pain, Mild (1-3) Albumin Human 25 gm 07/06/19 13:42 07/24/19 10:13 Alburx 25% (Albumin) IV 25 gm FEDE PRN Administration Hypotension Amlodipine Besylate 10 mg 07/17/19 13:00 07/25/19 09:30 Amlodipine PO Not Given QDAY YANG Lipase/Protease/Amylase 1 each 07/05/19 16:[address] 10,500 Unit FEEDTUBE PRN PRN For Clogged Feeding Tube Carvedilol 25 mg 07/17/19 22:00 07/25/19 09:00 Coreg PO 25 mg BID YANG Administration Cinacalcet 30 mg 07/18/19 10:00 07/25/19 09:00 Sensipar PO 30 mg QDAY YANG Administration Dextrose 0 ml 07/03/19 04:34 D50w (25gm) Syringe IV Q30MIN PRN Hypoglycemia Protocol Docusate Sodium 100 mg 07/15/19 10:00 07/25/19 09:00 Colace FEEDTUBE 100 mg BID YANG Administration Epoetin Jj 10,000 unit 07/22/19 13:00 07/24/19 12:21 Procrit SUB-Q 10,000 unit FEDE YANG Administration Famotidine 20 mg 07/07/19 10:00 07/25/19 09:00 Pepcid PO 20 mg DAILY YANG Administration Heparin Sodium (Porcine) 5,000 unit 07/03/19 10:00 07/25/19 09:00 Heparin SUB-Q 5,000 unit Q12HR YANG Administration Hydralazine HCl 50 mg 07/17/19 14:00 07/25/19 06:21 Apresoline PO 50 mg Q8HR YANG Administration Hydrophilic Ointment 1 applic 07/03/19 00:53 Vaseline Lip Therapy TP Q2HR PRN Dry Lips Fentanyl Citrate 2,000 mcg in 100 mls @ 2.608 mls/hr 07/03/19 01:00 07/04/19 18:10 Fentanyl Drip Premix IV Infused TITR YANG Titration Protocol 1 MCG/KG/HR Sodium Chloride 100 mls @ 999 mls/hr 07/05/19 13:41 Nacl 0.9% IV FEDE PRN Hypotension Sodium Chloride 1,000 mls @ 50 mls/hr 07/24/19 12:45 07/25/19 02:30 Nacl 0.9% 1000 Ml IV 50 mls/hr DIRECT YANG Administration Insulin Glargine 20 units 07/24/19 10:00 07/25/19 09:00 Lantus SUB-Q 20 units DAILY YANG Administration Insulin Human Lispro 0 unit 07/03/19 06:00 07/25/19 06:22 Humalog SUB-Q 4 unit Q6HR YANG Administration Protocol Multi-Ingred Cream/Lotion/Oil/Oint 1 applic 07/03/19 00:53 Artificial Tears Ophth Oint OU Q4HR PRN Dry Eye(s) Pantoprazole Sodium 40 mg 07/24/19 22:00 07/25/19 09:00 Protonix IV 40 mg BID YANG Administration Risperidone 0.5 mg 07/20/19 22:00 07/25/19 09:00 Risperdal PO 0.5 mg BID YANG Administration Simple Syrup 15 ml 07/05/19 16:27 Simple Syrup FEEDTUBE PRN PRN Hypoglycemia Simple Syrup 30 ml 07/05/19 16:27 Simple Syrup FEEDTUBE PRN PRN Hypoglycemia Sodium Bicarbonate 325 mg 07/05/19 16:27 Sodium Bicarbonate FEEDTUBE PRN PRN For Clogged Feeding Tube Sodium Chloride 10 ml 07/03/19 10:00 07/25/19 09:36 Sodium Chloride Flush Syringe 10 Ml IV 10 ml BID YANG Administration Sodium Chloride 10 ml 07/03/19 04:34 07/05/19 10:42 Sodium Chloride Flush Syringe 10 Ml IV 10 ml PRN PRN Administration LINE FLUSH Valproic Acid 500 mg 07/17/19 22:00 07/25/19 09:00 Depakene Liq FEEDTUBE 500 mg BID YANG Administration Nutrition/Malnutrition Assess - Dietary Evaluation Nutrition/Malnutrition Findings: Nutrition Notes Start: 07/06/19 08:50 Freq: Status: Active Protocol: Document 07/21/19 11:23 CT (Rec: 07/21/19 11:30 CT [id number]) Co-Sign 07/21/19 11:23 LP Nutrition Notes Initial or Follow up Reassessment Current Diagnosis CKD (stage V CKD),Decubitus( Pressure Ulcer),Diabetes,Heart Failure,Respiratory Failure Other Pertinent Diagnosis on HD, Sacral PU, seizures, bipolar disorder, metabolic encephalopathy Current Diet Nepro 1.8 at 35 ml/hr Labs/Tests Na 134 BUN 110 Cr 5.1 Pertinent Medications Heparin Bumex Lantus Height 5 ft 2 in Weight 53.1 kg Radiant Body Weight (kg) 50.00 BMI 21.4 Weight change and time frame wt gain likely d/t fluid Weight Status Appropriate Subjective/Other Information FU for tolerance. Nepro 1.8 running at 35ml/hr. Percent of energy/protein needs met: 100%/100% Burn Absent Trauma Absent GI Symptoms None Current % PO Negligible Minimum of two criteria No physical signs of malnutrition #2 Nutrition Diagnosis Increased nutrient needs ( specify in comment below) Comments: Protein Diagnosis Progress(for reassessment Continues documentation) #1 Nutrition Diagnosis Inadequate oral intake Diagnosis Progress(for reassessment Continues documentation) Is patient on ventilator? Yes Is Patient Ambulatory and/or Out of Bed No REE-(D[facility]. Jeor-confined to bed) 1282.032 Calculation Used for Recommendations [facility] Additional Notes Protein: 58 -96g (1.2-2g/kg) Fluid: 1-1.5 L/ day Nutrition Intervention Change Diet Order: TF Nutrition Support: Nepro 1.8 at 35ml/hr Change flush to 100 ml q4h. Kcal 1,512 Protein (gm) 68 Fluid (mL) 611 Goal #1 TF tolerance Goal #2 Wound Healing Anticipated Discharge Needs: unable to determine at this time Follow-Up By: 07/28/19 Additional Comments Follow up for TF at goal rate
[2019-07-25 10:27] LABS: Calcium 10.2 mg/dL (8.4-10.2)
--- NOTE | 2019-07-25 13:41 | Progress Note ---
Assessment and Plan Pt stable. s/p trach/PEG - POD#1. No issues or concerns. Routine trach/PEG care. Will sign-off. Please call with questions. Time=10min Subjective Date of service: 07/25/19 Patient Reports: Positive: other (no issues with trach/PEG per nursing staff) Objective Vital Signs - 12hr 07/25/19 07/25/19 07/25/19 01:40 01:50 02:00 Temperature Pulse Rate 77 75 76 Pulse Rate [ From Monitor] Respiratory 14 14 18 Rate Blood Pressure 132/51 125/48 128/50 O2 Sat by Pulse 99 99 100 Oximetry O2 Sat by Pulse Oximetry [ Assessment] 07/25/19 07/25/19 07/25/19 02:10 02:20 02:30 Temperature Pulse Rate 75 76 77 Pulse Rate [ From Monitor] Respiratory 15 14 15 Rate Blood Pressure 128/50 135/51 136/48 O2 Sat by Pulse 99 99 99 Oximetry O2 Sat by Pulse Oximetry [ Assessment] 07/25/19 07/25/19 07/25/19 02:40 02:50 03:00 Temperature Pulse Rate 77 77 75 Pulse Rate [ From Monitor] Respiratory 16 12 16 Rate Blood Pressure 136/48 132/50 132/47 O2 Sat by Pulse 99 99 99 Oximetry O2 Sat by Pulse Oximetry [ Assessment] 07/25/19 07/25/19 07/25/19 03:10 03:20 03:30 Temperature Pulse Rate 76 76 78 Pulse Rate [ From Monitor] Respiratory 14 14 15 Rate Blood Pressure 132/47 135/47 136/49 O2 Sat by Pulse 98 99 99 Oximetry O2 Sat by Pulse Oximetry [ Assessment] 07/25/19 07/25/19 07/25/19 03:40 03:44 03:50 Temperature 101.7 F H Pulse Rate 77 77 Pulse Rate [ From Monitor] Respiratory 13 16 Rate Blood Pressure 136/49 126/49 O2 Sat by Pulse 99 99 Oximetry O2 Sat by Pulse Oximetry [ Assessment] 07/25/19 07/25/19 07/25/19 04:00 04:10 04:20 Temperature Pulse Rate 77 78 78 Pulse Rate [ 80 From Monitor] Respiratory 14 15 12 Rate Blood Pressure 134/49 134/49 138/49 O2 Sat by Pulse 99 96 97 Oximetry O2 Sat by Pulse Oximetry [ Assessment] 07/25/19 07/25/19 07/25/19 04:30 04:40 04:43 Temperature Pulse Rate 80 80 Pulse Rate [ From Monitor] Respiratory 12 12 Rate Blood Pressure 141/50 141/50 O2 Sat by Pulse 97 97 Oximetry O2 Sat by Pulse 100 Oximetry [ Assessment] 07/25/19 07/25/19 07/25/19 04:50 05:00 05:10 Temperature Pulse Rate 79 81 82 Pulse Rate [ From Monitor] Respiratory 17 18 13 Rate Blood Pressure 138/47 137/49 137/49 O2 Sat by Pulse 99 99 99 Oximetry O2 Sat by Pulse Oximetry [ Assessment] 07/25/19 07/25/19 07/25/19 05:20 05:30 05:40 Temperature Pulse Rate 82 82 79 Pulse Rate [ From Monitor] Respiratory 16 17 11 L Rate Blood Pressure 135/51 136/45 136/45 O2 Sat by Pulse 99 99 98 Oximetry O2 Sat by Pulse Oximetry [ Assessment] 07/25/19 07/25/19 07/25/19 05:50 06:00 06:10 Temperature Pulse Rate 77 78 81 Pulse Rate [ From Monitor] Respiratory 15 18 14 Rate Blood Pressure 120/51 120/49 120/49 O2 Sat by Pulse 99 99 99 Oximetry O2 Sat by Pulse Oximetry [ Assessment] 07/25/19 07/25/19 07/25/19 06:20 06:21 06:30 Temperature Pulse Rate 82 81 81 Pulse Rate [ From Monitor] Respiratory 13 13 Rate Blood Pressure 131/54 131/54 125/52 O2 Sat by Pulse 99 99 Oximetry O2 Sat by Pulse Oximetry [ Assessment] 07/25/19 07/25/19 07/25/19 06:40 06:50 07:00 Temperature Pulse Rate 80 80 80 Pulse Rate [ From Monitor] Respiratory 16 18 16 Rate Blood Pressure 125/52 128/52 126/51 O2 Sat by Pulse 99 99 99 Oximetry O2 Sat by Pulse Oximetry [ Assessment] 07/25/19 07/25/19 07/25/19 07:10 07:20 07:30 Temperature Pulse Rate 80 80 82 Pulse Rate [ From Monitor] Respiratory 17 17 18 Rate Blood Pressure 126/51 125/49 121/49 O2 Sat by Pulse 99 99 99 Oximetry O2 Sat by Pulse Oximetry [ Assessment] 07/25/19 07/25/19 07/25/19 07:40 07:50 08:00 Temperature 102.3 F H Pulse Rate 83 81 81 Pulse Rate [ 82 From Monitor] Respiratory 15 16 13 Rate Blood Pressure 121/49 117/47 114/49 O2 Sat by Pulse 98 98 99 Oximetry O2 Sat by Pulse Oximetry [ Assessment] 07/25/19 07/25/19 07/25/19 08:10 08:20 08:30 Temperature Pulse Rate 82 80 81 Pulse Rate [ From Monitor] Respiratory 13 14 17 Rate Blood Pressure 123/51 118/47 114/49 O2 Sat by Pulse 99 98 99 Oximetry O2 Sat by Pulse Oximetry [ Assessment] 07/25/19 07/25/19 07/25/19 08:40 08:50 09:00 Temperature Pulse Rate 81 82 84 Pulse Rate [ From Monitor] Respiratory 14 17 17 Rate Blood Pressure 114/49 120/47 119/48 O2 Sat by Pulse 99 98 98 Oximetry O2 Sat by Pulse Oximetry [ Assessment] 07/25/19 07/25/19 07/25/19 09:10 09:20 09:30 Temperature Pulse Rate 85 86 87 Pulse Rate [ From Monitor] Respiratory 16 15 15 Rate Blood Pressure 119/48 123/49 118/47 O2 Sat by Pulse 98 98 98 Oximetry O2 Sat by Pulse Oximetry [ Assessment] 07/25/19 07/25/19 07/25/19 09:40 09:50 10:00 Temperature Pulse Rate 87 87 84 Pulse Rate [ From Monitor] Respiratory 16 14 16 Rate Blood Pressure 119/48 109/46 117/45 O2 Sat by Pulse 98 99 99 Oximetry O2 Sat by Pulse Oximetry [ Assessment] 07/25/19 07/25/19 07/25/19 10:10 10:58 11:03 Temperature Pulse Rate 82 76 Pulse Rate [ From Monitor] Respiratory 20 Rate Blood Pressure 117/45 121/48 O2 Sat by Pulse 99 99 Oximetry O2 Sat by Pulse 100 Oximetry [ Assessment] - General physical appearance no distress, no pain - Neck other (trach in place. No drainage, bleeding, or hematoma formation) - Respiratory normal expansion, normal respiratory effort - Abdomen soft, not distended, other (PEG in place. TF currently running. ) - Integumentary no rash, no growths, no abnormal pigmentation - Labs 07/20/19 05:01 07/25/19 09:54 Diabetes panel 07/25/19 Range/Units 09:54 Sodium 139 (137-145) mmol/L Potassium 3.8 (3.6-5.0) mmol/L Chloride 96.2 L (98-107) mmol/L Carbon Dioxide 22 (22-30) mmol/L BUN 55 H (7-17) mg/dL Creatinine 2.1 H (0.7-1.2) mg/dL Glucose 155 H (65-100) mg/dL Calcium 10.2 (8.4-10.2) mg/dL Calcium panel 07/25/19 Range/Units 09:54 Calcium 10.2 (8.4-10.2) mg/dL Pituitary panel 07/25/19 Range/Units 09:54 Sodium 139 (137-145) mmol/L Potassium 3.8 (3.6-5.0) mmol/L Chloride 96.2 L (98-107) mmol/L Carbon Dioxide 22 (22-30) mmol/L BUN 55 H (7-17) mg/dL Creatinine 2.1 H (0.7-1.2) mg/dL Glucose 155 H (65-100) mg/dL Calcium 10.2 (8.4-10.2) mg/dL Adrenal panel 07/25/19 Range/Units 09:54 Sodium 139 (137-145) mmol/L Potassium 3.8 (3.6-5.0) mmol/L Chloride 96.2 L (98-107) mmol/L Carbon Dioxide 22 (22-30) mmol/L BUN 55 H (7-17) mg/dL Creatinine 2.1 H (0.7-1.2) mg/dL Glucose 155 H (65-100) mg/dL Calcium 10.2 (8.4-10.2) mg/dL
--- NOTE | 2019-07-25 13:50 | Progress Note ---
Assessment and Plan Cultures: 07/03/2019 blood culture: No growth 07/03/2019 tracheal aspirate: Usual respiratory leelee 07/25/2019 blood culture: In process A/P: 59 yo F with ESRD on HD, diabetes, HTN, CHF, seizure, bipolar, depression and was recently hospitalized with altered mental status and found to have leukocytosis, now readmitted with respiratory distress and hypoxia. Has had a prolonged and complicated course. She is now s/p trach and PEG: #New fever: ?post operative, got trach and PEG yesterday. No indwelling lines, no diarrhea. Does not make any urine due to ESRD. CXR without pneumonia #Neutrophilic leukocytosis: Resolved, completed abx. #Acute respiratory failure: on the vent. CHF v/s pneumonia. #ESRD on HD: renally dose abx. #Sacral decubitus ulcer: wound care. CT non contrasted without evidence of fluid collection or osteomyelitis. Recs: ?post operative fevers follow up blood cultures. CXR without pneumonia. Does not make any urine due to ESRD. empiric Cefepime + Vancomycin for now, renally adjusted Marilu Cervantes MD, FACP [facility], [place], [facility] ([facility] C: [phone] O: [phone] F: [phone] Subjective Date of service: 07/25/19 Principal diagnosis: Acute hypoxemic resp failure; AMS; Severe Sepsis; ESRD; CHF; HTN; Seizure Interval history: ID reconsulted for new fevers. Got trach and PEG yesterday. Currently sleepy. Per RN, no new issues, sacral decub has been stable to improving. No diarrhea. Patient is anuric, on dialysis. No indwelling lines. Gets HD via AVF. Objective - Exam Narrative Exam: Physical Exam: Constitutional: drowsy, no distress Head, Ears, Nose: Normocephalic, atraumatic. External ears, nose normal Eyes: Conjunctivae/corneas clear. No icterus. No ptosis. Neck: trach Cardiovascular: S1, S2 normal. Respiratory: Good air entry, clear to auscultation bilaterally GI: Soft, non-tender; bowel sounds normal. No peritoneal signs. PEG tube + Musculoskeletal: No pedal edema, no cyanosis. Left forearm AVF Skin: Sacral decubitus with dressing Hem/Lymphatic: No palpable cervical or supraclavicular nodes. No lymphangitis Psych: no agitation Neurological: drowsy - Constitutional Vitals: Vital Signs Temp Pulse Resp BP Pulse Ox 102.3 F H 76 20 121/48 100 07/25/19 08:00 07/25/19 10:58 07/25/19 10:10 07/25/19 10:58 07/25/19 11:03 Temperature -Last 24 Hours Temperature 102.3 F Temperature 101.7 F Temperature 99.6 F Temperature 97.4 F Temperature 97.8 F - Labs CBC & Chem 7: 07/20/19 05:01 07/25/19 09:54 Labs: Abnormal lab results 07/24/19 07/24/19 07/25/19 Range/Units 12:02 18:11 00:08 Chloride (98-107) mmol/L BUN (7-17) mg/dL Creatinine (0.7-1.2) mg/dL Glucose (65-100) mg/dL POC Glucose 154 H 170 H 196 H (70-105) 07/25/19 07/25/19 07/25/19 Range/Units 05:19 09:54 12:41 Chloride 96.2 L (98-107) mmol/L BUN 55 H (7-17) mg/dL Creatinine 2.1 H (0.7-1.2) mg/dL Glucose 155 H (65-100) mg/dL POC Glucose 210 H 176 H (70-105) - Imaging and cardiology Chest x-ray: report reviewed, image reviewed (CXR from yesterday does not show any pneumonia)
--- NOTE | 2019-07-25 14:41 | Progress Note ---
Assessment and Plan Acute hypoxemic respiratory failure on MVS s/p Trachesotomy Acute toxic metabolic encephalopathy Severe Sepsis Oropharyngeal dysphagia s/p PEG ESRD on HD Congestive heart Failure Accelerated Hypertension H/O Seizure Trach care, airway clearance, secretion management PSV trials as tolerated Discharge to LTACH for weaning and supportive HD - VAP bundle addressed (aspiration precautions, HOB>40 degrees) -Lung protective strategies -wean FiO2 for O2 sats >90% - continue bronchodilators with pulmonary hygiene per RT - ABG, CXR in am - Daily SAT's and SBT assessment as tolerated - enteral nutrition at goal - HD/UF per nephrology for toxin and volume clearance - Continue to monitor off antibiotics, rend fever curve and WCC - VTE prophylaxis with heparin SQ - continue stress ulcer prophylaxis with Famotidine -continue accuchecks with glycemic control for SSI (While critically ill target blood glucose of 140-180 mg/dL; avoid hypoglycemia) -continue mobility protocols and off loading for pressure ulcer prevention - continue to monitor hemodynamics closely - continue fluid restrictive strategies as tolerated by hemodynamics and by her renal function - continue to avoid nephrotoxins, dose all medications for CrCL and GFR - continue to monitor electrolyte profile closely and replete as indicated - Chronic home medications, resume as clinically indicated - All other care per attending / other consultants CONDITION: FAIR PROGNOSIS: GUARDED CODE STATUS: FULL CODE The high probability of a clinically significant, sudden or life-threatening deterioration of the [respiratory, cardiovascular, neurology, renal] system(s) required my full and direct attention, intervention and personal management. The aggregate critical care time was [30] minutes without overlap. Time includes sp ent on; [x] Data Review and interpretation [x] Patient assessment and monitoring of vital signs [x] Documentation [x] Medication orders and management Subjective Date of service: 07/25/19 Principal diagnosis: Acute hypoxemic resp failure; AMS; Severe Sepsis; ESRD; CHF; HTN; Seizure Interval history: Patient is seen today for: Acute hypoxemic respiratory failure; Toxic metabolic encephalopathy; Severe Sepsis; ESRD on HD; CHF; Accelerated Hypertension; H/O Seizure Seen and examined at bedside; 24hour events reviewed; nursing and respiratory care staff consulted; no adverse overnight events reported to me; resting peacefully in bed; AMS is persistent; no emesis or overt aspiration; no seizures; tube feeds going; no high grade fevers s/p trach to MVS; Objective Vital Signs - 12hr 07/25/19 07/25/19 07/25/19 02:50 03:00 03:10 Temperature Pulse Rate 77 75 76 Pulse Rate [ From Monitor] Respiratory 12 16 14 Rate Blood Pressure 132/50 132/47 132/47 O2 Sat by Pulse 99 99 98 Oximetry O2 Sat by Pulse Oximetry [ Assessment] 07/25/19 07/25/19 07/25/19 03:20 03:30 03:40 Temperature Pulse Rate 76 78 77 Pulse Rate [ From Monitor] Respiratory 14 15 13 Rate Blood Pressure 135/47 136/49 136/49 O2 Sat by Pulse 99 99 99 Oximetry O2 Sat by Pulse Oximetry [ Assessment] 07/25/19 07/25/19 07/25/19 03:44 03:50 04:00 Temperature 101.7 F H Pulse Rate 77 77 Pulse Rate [ 80 From Monitor] Respiratory 16 14 Rate Blood Pressure 126/49 134/49 O2 Sat by Pulse 99 99 Oximetry O2 Sat by Pulse Oximetry [ Assessment] 07/25/19 07/25/19 07/25/19 04:10 04:20 04:30 Temperature Pulse Rate 78 78 80 Pulse Rate [ From Monitor] Respiratory 15 12 12 Rate Blood Pressure 134/49 138/49 141/50 O2 Sat by Pulse 96 97 97 Oximetry O2 Sat by Pulse Oximetry [ Assessment] 07/25/19 07/25/19 07/25/19 04:40 04:43 04:50 Temperature Pulse Rate 80 79 Pulse Rate [ From Monitor] Respiratory 12 17 Rate Blood Pressure 141/50 138/47 O2 Sat by Pulse 97 99 Oximetry O2 Sat by Pulse 100 Oximetry [ Assessment] 07/25/19 07/25/19 07/25/19 05:00 05:10 05:20 Temperature Pulse Rate 81 82 82 Pulse Rate [ From Monitor] Respiratory 18 13 16 Rate Blood Pressure 137/49 137/49 135/51 O2 Sat by Pulse 99 99 99 Oximetry O2 Sat by Pulse Oximetry [ Assessment] 07/25/19 07/25/19 07/25/19 05:30 05:40 05:50 Temperature Pulse Rate 82 79 77 Pulse Rate [ From Monitor] Respiratory 17 11 L 15 Rate Blood Pressure 136/45 136/45 120/51 O2 Sat by Pulse 99 98 99 Oximetry O2 Sat by Pulse Oximetry [ Assessment] 07/25/19 07/25/19 07/25/19 06:00 06:10 06:20 Temperature Pulse Rate 78 81 82 Pulse Rate [ From Monitor] Respiratory 18 14 13 Rate Blood Pressure 120/49 120/49 131/54 O2 Sat by Pulse 99 99 99 Oximetry O2 Sat by Pulse Oximetry [ Assessment] 07/25/19 07/25/19 07/25/19 06:21 06:30 06:40 Temperature Pulse Rate 81 81 80 Pulse Rate [ From Monitor] Respiratory 13 16 Rate Blood Pressure 131/54 125/52 125/52 O2 Sat by Pulse 99 99 Oximetry O2 Sat by Pulse Oximetry [ Assessment] 07/25/19 07/25/19 07/25/19 06:50 07:00 07:10 Temperature Pulse Rate 80 80 80 Pulse Rate [ From Monitor] Respiratory 18 16 17 Rate Blood Pressure 128/52 126/51 126/51 O2 Sat by Pulse 99 99 99 Oximetry O2 Sat by Pulse Oximetry [ Assessment] 07/25/19 07/25/19 07/25/19 07:20 07:30 07:40 Temperature Pulse Rate 80 82 83 Pulse Rate [ From Monitor] Respiratory 17 18 15 Rate Blood Pressure 125/49 121/49 121/49 O2 Sat by Pulse 99 99 98 Oximetry O2 Sat by Pulse Oximetry [ Assessment] 07/25/19 07/25/19 07/25/19 07:50 08:00 08:10 Temperature 102.3 F H Pulse Rate 81 81 82 Pulse Rate [ 82 From Monitor] Respiratory 16 13 13 Rate Blood Pressure 117/47 114/49 123/51 O2 Sat by Pulse 98 99 99 Oximetry O2 Sat by Pulse Oximetry [ Assessment] 07/25/19 07/25/19 07/25/19 08:20 08:30 08:40 Temperature Pulse Rate 80 81 81 Pulse Rate [ From Monitor] Respiratory 14 17 14 Rate Blood Pressure 118/47 114/49 114/49 O2 Sat by Pulse 98 99 99 Oximetry O2 Sat by Pulse Oximetry [ Assessment] 07/25/19 07/25/19 07/25/19 08:50 09:00 09:10 Temperature Pulse Rate 82 84 85 Pulse Rate [ From Monitor] Respiratory 17 17 16 Rate Blood Pressure 120/47 119/48 119/48 O2 Sat by Pulse 98 98 98 Oximetry O2 Sat by Pulse Oximetry [ Assessment] 02/15/20 02/15/20 02/15/20 09:20 09:30 09:40 Temperature Pulse Rate 86 87 87 Pulse Rate [ From Monitor] Respiratory 15 15 16 Rate Blood Pressure 123/49 118/47 119/48 O2 Sat by Pulse 98 98 98 Oximetry O2 Sat by Pulse Oximetry [ Assessment] 07/25/19 07/25/19 07/25/19 09:50 10:00 10:10 Temperature Pulse Rate 87 84 82 Pulse Rate [ From Monitor] Respiratory 14 16 20 Rate Blood Pressure 109/46 117/45 117/45 O2 Sat by Pulse 99 99 99 Oximetry O2 Sat by Pulse Oximetry [ Assessment] 07/25/19 07/25/19 07/25/19 10:20 10:30 10:40 Temperature Pulse Rate 83 80 78 Pulse Rate [ From Monitor] Respiratory 17 14 15 Rate Blood Pressure 117/45 115/48 115/48 O2 Sat by Pulse 99 99 99 Oximetry O2 Sat by Pulse Oximetry [ Assessment] 07/25/19 07/25/19 07/25/19 10:50 10:58 11:00 Temperature Pulse Rate 78 76 76 Pulse Rate [ From Monitor] Respiratory 16 12 Rate Blood Pressure 115/48 121/48 121/48 O2 Sat by Pulse 99 99 99 Oximetry O2 Sat by Pulse Oximetry [ Assessment] 07/25/19 07/25/19 07/25/19 11:03 11:10 11:20 Temperature Pulse Rate 76 73 Pulse Rate [ From Monitor] Respiratory 15 11 L Rate Blood Pressure 121/48 121/48 O2 Sat by Pulse 99 100 Oximetry O2 Sat by Pulse 100 Oximetry [ Assessment] 07/25/19 07/25/19 07/25/19 11:30 11:40 11:50 Temperature Pulse Rate 74 71 71 Pulse Rate [ From Monitor] Respiratory 14 14 11 L Rate Blood Pressure 119/50 119/50 119/50 O2 Sat by Pulse 100 100 100 Oximetry O2 Sat by Pulse Oximetry [ Assessment] 07/25/19 07/25/19 07/25/19 12:00 12:10 12:20 Temperature 99.8 F H Pulse Rate 72 69 68 Pulse Rate [ 72 From Monitor] Respiratory 10 L 9 L 13 Rate Blood Pressure 123/57 119/50 119/50 O2 Sat by Pulse 100 100 100 Oximetry O2 Sat by Pulse Oximetry [ Assessment] 07/25/19 07/25/19 07/25/19 12:30 12:40 12:50 Temperature Pulse Rate 70 68 70 Pulse Rate [ From Monitor] Respiratory 13 13 10 L Rate Blood Pressure 128/50 123/57 123/57 O2 Sat by Pulse 100 100 100 Oximetry O2 Sat by Pulse Oximetry [ Assessment] 07/25/19 07/25/19 07/25/19 13:00 13:10 13:20 Temperature Pulse Rate 68 67 65 Pulse Rate [ From Monitor] Respiratory 13 13 10 L Rate Blood Pressure 133/53 133/53 133/53 O2 Sat by Pulse 100 100 100 Oximetry O2 Sat by Pulse Oximetry [ Assessment] 07/25/19 07/25/19 07/25/19 13:30 13:40 13:50 Temperature Pulse Rate 66 65 64 Pulse Rate [ From Monitor] Respiratory 14 12 11 L Rate Blood Pressure 140/53 140/53 140/53 O2 Sat by Pulse 100 100 100 Oximetry O2 Sat by Pulse Oximetry [ Assessment] 07/25/19 07/25/19 14:00 14:10 Temperature Pulse Rate 64 64 Pulse Rate [ From Monitor] Respiratory 13 11 L Rate Blood Pressure 127/52 127/52 O2 Sat by Pulse 100 100 Oximetry O2 Sat by Pulse Oximetry [ Assessment] Constitutional: appears uncomfortable, other (middle aged thin female, normocephalic with mildly increased resp effort on MVS) Eyes: non-icteric ENT: oropharynx dry, other (s/p trach to MVS) Neck: supple, no lymphadenopathy, no JVD Effort: normal Ascultation: Bilateral: diminished breath sounds, rhonchi Percussion: Bilateral: not dull Cardiovascular: regular rate and rhythm Gastrointestinal: normoactive bowel sounds, soft, non-tender, non-distended, other (PEG in place) Integumentary: normal, decubitus ulcer (sacral) Extremities: no cyanosis, no edema, pink and warm, pulses normal Neurologic: unable to assess Psychiatric: other (unable to assess re: AMS) CBC and BMP: 07/20/19 05:01 07/25/19 09:54 ABG, PT/INR, D-dimer: ABG ABG pH 7.425 pH Units (7.350-7.450) 07/13/19 05:50 ABG pCO2 42.9 mm Hg 07/13/19 05:50 ABG pO2 110.8 mm Hg (80.0-90.0) H 07/13/19 05:50 ABG O2 Saturation 98.0 % (95.0-99.0) 07/13/19 05:50 PT/INR, D-dimer PT 13.5 Sec. (12.2-14.9) 07/23/19 04:41 INR 1.02 (0.87-1.13) 07/23/19 04:41 Abnormal lab findings: Abnormal Labs 07/03/19 07/03/19 07/03/19 01:00 01:00 01:00 WBC 17.9 H RBC Hgb Hct RDW 17.8 H Plt Count Lymph % (Auto) 11.7 L [place] % (Auto) [place] # 1.0 H Seg Neutrophils % 82.1 H Seg Neuts % (Manual) Seg Neutrophils # 14.7 H Seg Neutrophils # Man Monocytes # (Manual) ABG pH ABG pO2 ABG HCO3 ABG O2 Saturation ABG Base Excess ABG Hemoglobin Oxyhemoglobin Sodium Chloride 92.9 L Carbon Dioxide BUN 45 H Creatinine 5.3 H Glucose 229 H POC Glucose Hemoglobin A1c Calcium 10.5 H Phosphorus NT-Pro-B Natriuret Pep > 71672 H Albumin 2.5 L 07/03/19 07/03/19 07/03/19 01:00 01:35 04:30 WBC RBC Hgb Hct RDW Plt Count Lymph % (Auto) [place] % (Auto) [place] # Seg Neutrophils % Seg Neuts % (Manual) Seg Neutrophils # Seg Neutrophils # Man Monocytes # (Manual) ABG pH 7.555 H 7.489 H ABG pO2 65.4 L 149.9 H ABG HCO3 28.9 H 27.9 H ABG O2 Saturation ABG Base Excess 6.7 H 4.5 H ABG Hemoglobin Oxyhemoglobin 94.0 L Sodium Chloride Carbon Dioxide BUN Creatinine Glucose POC Glucose Hemoglobin A1c 7.0 H Calcium Phosphorus NT-Pro-B Natriuret Pep Albumin 07/03/19 07/03/19 07/03/19 12:10 17:35 23:59 WBC RBC Hgb Hct RDW Plt Count Lymph % (Auto) [place] % (Auto) [place] # Seg Neutrophils % Seg Neuts % (Manual) Seg Neutrophils # Seg Neutrophils # Man Monocytes # (Manual) ABG pH ABG pO2 ABG HCO3 ABG O2 Saturation ABG Base Excess ABG Hemoglobin Oxyhemoglobin Sodium Chloride Carbon Dioxide BUN Creatinine Glucose POC Glucose 246 H 163 H 112 H Hemoglobin A1c Calcium Phosphorus NT-Pro-B Natriuret Pep Albumin 07/04/19 07/04/19 07/04/19 04:24 04:56 04:56 WBC 17.3 H RBC Hgb Hct RDW 18.0 H Plt Count Lymph % (Auto) 8.7 L [place] % (Auto) [place] # 0.9 H Seg Neutrophils % 85.1 H Seg Neuts % (Manual) Seg Neutrophils # 14.8 H Seg Neutrophils # Man Monocytes # (Manual) ABG pH 7.496 H ABG pO2 74.0 L ABG HCO3 28.1 H ABG O2 Saturation ABG Base Excess 4.7 H ABG Hemoglobin Oxyhemoglobin 93.9 L Sodium Chloride 95.5 L Carbon Dioxide BUN 26 H Creatinine 3.4 H Glucose 145 H POC Glucose Hemoglobin A1c Calcium Phosphorus NT-Pro-B Natriuret Pep Albumin 07/04/19 07/04/19 07/05/19 07:04 17:56 01:45 WBC RBC Hgb Hct RDW Plt Count Lymph % (Auto) [place] % (Auto) [place] # Seg Neutrophils % Seg Neuts % (Manual) Seg Neutrophils # Seg Neutrophils # Man Monocytes # (Manual) ABG pH ABG pO2 ABG HCO3 ABG O2 Saturation ABG Base Excess ABG Hemoglobin Oxyhemoglobin Sodium Chloride Carbon Dioxide BUN Creatinine Glucose POC Glucose 162 H 273 H 148 H Hemoglobin A1c Calcium Phosphorus NT-Pro-B Natriuret Pep Albumin 07/05/19 07/05/19 07/05/19 03:07 03:07 05:57 WBC 18.7 H RBC Hgb Hct RDW 17.7 H Plt Count Lymph % (Auto) 7.6 L [place] % (Auto) [place] # 1.2 H Seg Neutrophils % 84.2 H Seg Neuts % (Manual) Seg Neutrophils # 15.7 H Seg Neutrophils # Man Monocytes # (Manual) ABG pH ABG pO2 ABG HCO3 ABG O2 Saturation ABG Base Excess ABG Hemoglobin Oxyhemoglobin Sodium Chloride 94.7 L 95.6 L Carbon Dioxide 19 L BUN 23 H 26 H Creatinine 2.7 H 2.9 H Glucose 161 H 179 H POC Glucose Hemoglobin A1c Calcium 10.3 H 10.5 H Phosphorus 5.20 H D NT-Pro-B Natriuret Pep Albumin 07/05/19 07/05/19 07/05/19 06:50 07:52 09:06 WBC 16.8 H RBC Hgb Hct RDW 18.1 H Plt Count Lymph % (Auto) 8.0 L [place] % (Auto) [place] # 1.1 H Seg Neutrophils % 84.4 H Seg Neuts % (Manual) Seg Neutrophils # 14.2 H Seg Neutrophils # Man Monocytes # (Manual) ABG pH ABG pO2 ABG HCO3 ABG O2 Saturation ABG Base Excess ABG Hemoglobin 11.7 L Oxyhemoglobin 94.6 L Sodium Chloride Carbon Dioxide BUN Creatinine Glucose POC Glucose 195 H Hemoglobin A1c Calcium Phosphorus NT-Pro-B Natriuret Pep Albumin 07/05/19 07/05/19 07/06/19 12:26 17:53 01:03 WBC RBC Hgb Hct RDW Plt Count Lymph % (Auto) [place] % (Auto) [place] # Seg Neutrophils % Seg Neuts % (Manual) Seg Neutrophils # Seg Neutrophils # Man Monocytes # (Manual) ABG pH ABG pO2 ABG HCO3 ABG O2 Saturation ABG Base Excess ABG Hemoglobin Oxyhemoglobin Sodium Chloride Carbon Dioxide BUN Creatinine Glucose POC Glucose 222 H 214 H 217 H Hemoglobin A1c Calcium Phosphorus NT-Pro-B Natriuret Pep Albumin 07/06/19 07/06/19 07/06/19 03:45 04:37 04:37 WBC 15.7 H RBC Hgb Hct RDW 17.9 H Plt Count Lymph % (Auto) 9.3 L [place] % (Auto) 8.2 H [place] # 1.3 H Seg Neutrophils % 81.5 H Seg Neuts % (Manual) Seg Neutrophils # 12.8 H Seg Neutrophils # Man Monocytes # (Manual) ABG pH ABG pO2 67.1 L ABG HCO3 ABG O2 Saturation 93.3 L ABG Base Excess ABG Hemoglobin Oxyhemoglobin 91.2 L Sodium Chloride 97.5 L Carbon Dioxide 20 L BUN 50 H Creatinine 4.5 H D Glucose 192 H POC Glucose Hemoglobin A1c Calcium Phosphorus 5.80 H NT-Pro-B Natriuret Pep Albumin 07/06/19 07/06/19 07/06/19 06:10 13:47 18:40 WBC RBC Hgb Hct RDW Plt Count Lymph % (Auto) [place] % (Auto) [place] # Seg Neutrophils % Seg Neuts % (Manual) Seg Neutrophils # Seg Neutrophils # Man Monocytes # (Manual) ABG pH ABG pO2 ABG HCO3 ABG O2 Saturation ABG Base Excess ABG Hemoglobin Oxyhemoglobin Sodium Chloride Carbon Dioxide BUN Creatinine Glucose POC Glucose 214 H 233 H 225 H Hemoglobin A1c Calcium Phosphorus NT-Pro-B Natriuret Pep Albumin 07/07/19 07/07/19 07/07/19 00:11 04:30 05:33 WBC RBC Hgb Hct RDW Plt Count Lymph % (Auto) [place] % (Auto) [place] # Seg Neutrophils % Seg Neuts % (Manual) Seg Neutrophils # Seg Neutrophils # Man Monocytes # (Manual) ABG pH ABG pO2 113.7 H ABG HCO3 28.6 H ABG O2 Saturation ABG Base Excess 4.0 H ABG Hemoglobin 11.3 L Oxyhemoglobin Sodium Chloride Carbon Dioxide BUN Creatinine Glucose POC Glucose 288 H 204 H Hemoglobin A1c Calcium Phosphorus NT-Pro-B Natriuret Pep Albumin 07/07/19 07/07/19 07/07/19 05:38 05:38 11:39 WBC 15.0 H RBC Hgb Hct RDW 18.3 H Plt Count Lymph % (Auto) 10.9 L [place] % (Auto) 8.9 H [place] # 1.3 H Seg Neutrophils % 79.6 H Seg Neuts % (Manual) Seg Neutrophils # 11.9 H Seg Neutrophils # Man Monocytes # (Manual) ABG pH ABG pO2 ABG HCO3 ABG O2 Saturation ABG Base Excess ABG Hemoglobin Oxyhemoglobin Sodium Chloride 94.8 L Carbon Dioxide BUN 32 H Creatinine 2.8 H Glucose 236 H POC Glucose 309 H Hemoglobin A1c Calcium 10.6 H Phosphorus NT-Pro-B Natriuret Pep Albumin 07/07/19 07/07/19 07/08/19 18:09 23:30 03:49 WBC RBC Hgb Hct RDW Plt Count Lymph % (Auto) [place] % (Auto) [place] # Seg Neutrophils % Seg Neuts % (Manual) Seg Neutrophils # Seg Neutrophils # Man Monocytes # (Manual) ABG pH ABG pO2 116.2 H ABG HCO3 27.7 H ABG O2 Saturation ABG Base Excess ABG Hemoglobin 11.2 L Oxyhemoglobin Sodium Chloride Carbon Dioxide BUN Creatinine Glucose POC Glucose 280 H 398 H Hemoglobin A1c Calcium Phosphorus NT-Pro-B Natriuret Pep Albumin 07/08/19 07/08/19 07/08/19 04:38 04:38 05:37 WBC 13.5 H RBC Hgb Hct RDW 18.3 H Plt Count Lymph % (Auto) [place] % (Auto) 9.5 H [place] # 1.3 H Seg Neutrophils % 75.6 H Seg Neuts % (Manual) Seg Neutrophils # 10.2 H Seg Neutrophils # Man Monocytes # (Manual) ABG pH ABG pO2 ABG HCO3 ABG O2 Saturation ABG Base Excess ABG Hemoglobin Oxyhemoglobin Sodium Chloride 94.9 L Carbon Dioxide BUN 64 H Creatinine 4.2 H Glucose 288 H POC Glucose 270 H Hemoglobin A1c Calcium 10.9 H Phosphorus NT-Pro-B Natriuret Pep Albumin 07/08/19 07/08/19 07/08/19 11:47 17:36 23:23 WBC RBC Hgb Hct RDW Plt Count Lymph % (Auto) [place] % (Auto) [place] # Seg Neutrophils % Seg Neuts % (Manual) Seg Neutrophils # Seg Neutrophils # Man Monocytes # (Manual) ABG pH ABG pO2 ABG HCO3 ABG O2 Saturation ABG Base Excess ABG Hemoglobin Oxyhemoglobin Sodium Chloride Carbon Dioxide BUN Creatinine Glucose POC Glucose 211 H 259 H 276 H Hemoglobin A1c Calcium Phosphorus NT-Pro-B Natriuret Pep Albumin 07/09/19 07/09/19 07/09/19 04:08 04:29 04:29 WBC 12.8 H RBC Hgb Hct RDW 17.7 H Plt Count Lymph % (Auto) 12.5 L [place] % (Auto) 8.4 H [place] # 1.1 H Seg Neutrophils % 77.0 H Seg Neuts % (Manual) Seg Neutrophils # 9.9 H Seg Neutrophils # Man Monocytes # (Manual) ABG pH 7.471 H ABG pO2 141.8 H ABG HCO3 32.3 H ABG O2 Saturation ABG Base Excess 7.8 H ABG Hemoglobin 11.3 L Oxyhemoglobin Sodium Chloride 94.1 L Carbon Dioxide BUN 36 H Creatinine 2.6 H Glucose 217 H POC Glucose Hemoglobin A1c Calcium 11.0 H Phosphorus NT-Pro-B Natriuret Pep Albumin 07/09/19 07/09/19 07/09/19 05:25 10:46 13:07 WBC RBC Hgb Hct RDW Plt Count Lymph % (Auto) [place] % (Auto) [place] # Seg Neutrophils % Seg Neuts % (Manual) Seg Neutrophils # Seg Neutrophils # Man Monocytes # (Manual) ABG pH ABG pO2 113.2 H ABG HCO3 30.9 H ABG O2 Saturation ABG Base Excess 6.0 H ABG Hemoglobin 10.5 L Oxyhemoglobin Sodium Chloride Carbon Dioxide BUN Creatinine Glucose POC Glucose 190 H 315 H Hemoglobin A1c Calcium Phosphorus NT-Pro-B Natriuret Pep Albumin 07/09/19 07/09/19 07/10/19 17:59 23:18 04:00 WBC RBC Hgb Hct RDW Plt Count Lymph % (Auto) [place] % (Auto) [place] # Seg Neutrophils % Seg Neuts % (Manual) Seg Neutrophils # Seg Neutrophils # Man Monocytes # (Manual) ABG pH ABG pO2 77.3 L ABG HCO3 30.4 H ABG O2 Saturation ABG Base Excess 5.1 H ABG Hemoglobin Oxyhemoglobin Sodium Chloride Carbon Dioxide BUN Creatinine Glucose POC Glucose 204 H 199 H Hemoglobin A1c Calcium Phosphorus NT-Pro-B Natriuret Pep Albumin 07/10/19 07/10/19 07/10/19 04:55 04:55 05:39 WBC 23.9 H RBC Hgb Hct RDW 18.1 H Plt Count Lymph % (Auto) [place] % (Auto) [place] # Seg Neutrophils % Seg Neuts % (Manual) 81.0 H Seg Neutrophils # Seg Neutrophils # Man 19.4 H Monocytes # (Manual) 1.0 H ABG pH ABG pO2 ABG HCO3 ABG O2 Saturation ABG Base Excess ABG Hemoglobin Oxyhemoglobin Sodium 133 L Chloride 88.0 L Carbon Dioxide BUN 64 H Creatinine 3.7 H Glucose 250 H POC Glucose 288 H Hemoglobin A1c Calcium 11.1 H Phosphorus NT-Pro-B Natriuret Pep Albumin 07/10/19 07/10/19 07/10/19 12:02 18:32 23:37 WBC RBC Hgb Hct RDW Plt Count Lymph % (Auto) [place] % (Auto) [place] # Seg Neutrophils % Seg Neuts % (Manual) Seg Neutrophils # Seg Neutrophils # Man Monocytes # (Manual) ABG pH ABG pO2 ABG HCO3 ABG O2 Saturation ABG Base Excess ABG Hemoglobin Oxyhemoglobin Sodium Chloride Carbon Dioxide BUN Creatinine Glucose POC Glucose 204 H 288 H 189 H Hemoglobin A1c Calcium Phosphorus NT-Pro-B Natriuret Pep Albumin 07/11/19 07/11/19 07/11/19 05:31 06:10 06:10 WBC 16.6 H RBC 3.60 L Hgb Hct RDW 16.8 H Plt Count Lymph % (Auto) [place] % (Auto) [place] # Seg Neutrophils % Seg Neuts % (Manual) Seg Neutrophils # Seg Neutrophils # Man Monocytes # (Manual) ABG pH ABG pO2 ABG HCO3 ABG O2 Saturation ABG Base Excess ABG Hemoglobin Oxyhemoglobin Sodium 130 L Chloride 87.4 L Carbon Dioxide BUN 47 H Creatinine 2.4 H Glucose 138 H POC Glucose 135 H Hemoglobin A1c Calcium 10.8 H Phosphorus NT-Pro-B Natriuret Pep Albumin 07/11/19 07/11/19 07/11/19 12:28 18:05 23:49 WBC RBC Hgb Hct RDW Plt Count Lymph % (Auto) [place] % (Auto) [place] # Seg Neutrophils % Seg Neuts % (Manual) Seg Neutrophils # Seg Neutrophils # Man Monocytes # (Manual) ABG pH ABG pO2 ABG HCO3 ABG O2 Saturation ABG Base Excess ABG Hemoglobin Oxyhemoglobin Sodium Chloride Carbon Dioxide BUN Creatinine Glucose POC Glucose 243 H 177 H 163 H Hemoglobin A1c Calcium Phosphorus NT-Pro-B Natriuret Pep Albumin 07/12/19 07/12/19 07/12/19 05:27 05:43 05:43 WBC 15.0 H RBC Hgb Hct RDW 17.5 H Plt Count Lymph % (Auto) [place] % (Auto) [place] # Seg Neutrophils % Seg Neuts % (Manual) Seg Neutrophils # Seg Neutrophils # Man Monocytes # (Manual) ABG pH ABG pO2 ABG HCO3 ABG O2 Saturation ABG Base Excess ABG Hemoglobin Oxyhemoglobin Sodium 128 L Chloride 85.7 L Carbon Dioxide BUN 76 H Creatinine 3.8 H D Glucose 157 H POC Glucose 156 H Hemoglobin A1c Calcium 10.8 H Phosphorus NT-Pro-B Natriuret Pep Albumin 07/12/19 07/12/19 07/13/19 12:03 18:30 00:03 WBC RBC Hgb Hct RDW Plt Count Lymph % (Auto) [place] % (Auto) [place] # Seg Neutrophils % Seg Neuts % (Manual) Seg Neutrophils # Seg Neutrophils # Man Monocytes # (Manual) ABG pH ABG pO2 ABG HCO3 ABG O2 Saturation ABG Base Excess ABG Hemoglobin Oxyhemoglobin Sodium Chloride Carbon Dioxide BUN Creatinine Glucose POC Glucose 162 H 183 H 187 H Hemoglobin A1c Calcium Phosphorus NT-Pro-B Natriuret Pep Albumin 07/13/19 07/13/19 07/13/19 05:50 05:56 07:50 WBC 13.5 H RBC 3.37 L Hgb 9.6 L Hct 28.8 L RDW 17.4 H Plt Count Lymph % (Auto) [place] % (Auto) [place] # Seg Neutrophils % Seg Neuts % (Manual) Seg Neutrophils # Seg Neutrophils # Man Monocytes # (Manual) ABG pH ABG pO2 110.8 H ABG HCO3 27.5 H ABG O2 Saturation ABG Base Excess ABG Hemoglobin 10.0 L Oxyhemoglobin Sodium Chloride Carbon Dioxide BUN Creatinine Glucose POC Glucose 216 H Hemoglobin A1c Calcium Phosphorus NT-Pro-B Natriuret Pep Albumin 07/13/19 07/13/19 07/13/19 07:50 13:18 18:09 WBC RBC Hgb Hct RDW Plt Count Lymph % (Auto) [place] % (Auto) [place] # Seg Neutrophils % Seg Neuts % (Manual) Seg Neutrophils # Seg Neutrophils # Man Monocytes # (Manual) ABG pH ABG pO2 ABG HCO3 ABG O2 Saturation ABG Base Excess ABG Hemoglobin Oxyhemoglobin Sodium 126 L Chloride 80.8 L Carbon Dioxide 21 L BUN 105 H Creatinine 4.7 H Glucose 215 H POC Glucose 187 H 202 H Hemoglobin A1c Calcium 10.3 H Phosphorus NT-Pro-B Natriuret Pep Albumin 07/13/19 07/13/19 07/14/19 19:44 23:23 04:17 WBC RBC Hgb Hct RDW 17.5 H Plt Count Lymph % (Auto) [place] % (Auto) [place] # Seg Neutrophils % Seg Neuts % (Manual) Seg Neutrophils # Seg Neutrophils # Man Monocytes # (Manual) ABG pH ABG pO2 ABG HCO3 ABG O2 Saturation ABG Base Excess ABG Hemoglobin Oxyhemoglobin Sodium 133 L D Chloride Carbon Dioxide BUN Creatinine Glucose POC Glucose 167 H Hemoglobin A1c Calcium Phosphorus NT-Pro-B Natriuret Pep Albumin 07/14/19 07/14/19 07/14/19 04:17 05:03 12:12 WBC RBC Hgb Hct RDW Plt Count Lymph % (Auto) [place] % (Auto) [place] # Seg Neutrophils % Seg Neuts % (Manual) Seg Neutrophils # Seg Neutrophils # Man Monocytes # (Manual) ABG pH ABG pO2 ABG HCO3 ABG O2 Saturation ABG Base Excess ABG Hemoglobin Oxyhemoglobin Sodium 131 L Chloride 88.8 L Carbon Dioxide BUN 47 H Creatinine 2.6 H Glucose 131 H POC Glucose 142 H 246 H Hemoglobin A1c Calcium Phosphorus NT-Pro-B Natriuret Pep Albumin 07/14/19 07/15/19 07/15/19 18:30 00:35 04:51 WBC RBC 3.51 L Hgb 9.9 L Hct 30.0 L RDW 17.6 H Plt Count 510 H Lymph % (Auto) [place] % (Auto) [place] # Seg Neutrophils % 72.4 H Seg Neuts % (Manual) Seg Neutrophils # Seg Neutrophils # Man Monocytes # (Manual) ABG pH ABG pO2 ABG HCO3 ABG O2 Saturation ABG Base Excess ABG Hemoglobin Oxyhemoglobin Sodium Chloride Carbon Dioxide BUN Creatinine Glucose POC Glucose 114 H 164 H Hemoglobin A1c Calcium Phosphorus NT-Pro-B Natriuret Pep Albumin 07/15/19 07/15/19 07/15/19 04:51 06:21 11:55 WBC RBC Hgb Hct RDW Plt Count Lymph % (Auto) [place] % (Auto) [place] # Seg Neutrophils % Seg Neuts % (Manual) Seg Neutrophils # Seg Neutrophils # Man Monocytes # (Manual) ABG pH ABG pO2 ABG HCO3 ABG O2 Saturation ABG Base Excess ABG Hemoglobin Oxyhemoglobin Sodium 134 L Chloride 88.7 L Carbon Dioxide BUN 78 H Creatinine 4.0 H D Glucose 141 H POC Glucose 135 H 172 H Hemoglobin A1c Calcium 10.4 H Phosphorus NT-Pro-B Natriuret Pep Albumin 07/15/19 07/15/19 07/15/19 17:46 18:10 23:20 WBC RBC Hgb Hct RDW Plt Count Lymph % (Auto) [place] % (Auto) [place] # Seg Neutrophils % Seg Neuts % (Manual) Seg Neutrophils # Seg Neutrophils # Man Monocytes # (Manual) ABG pH ABG pO2 ABG HCO3 ABG O2 Saturation ABG Base Excess ABG Hemoglobin Oxyhemoglobin Sodium Chloride Carbon Dioxide BUN Creatinine Glucose POC Glucose 203 H 237 H 184 H Hemoglobin A1c Calcium Phosphorus NT-Pro-B Natriuret Pep Albumin 07/16/19 07/16/19 07/16/19 04:44 04:44 05:44 WBC RBC Hgb Hct RDW 17.5 H Plt Count 605 H Lymph % (Auto) [place] % (Auto) [place] # Seg Neutrophils % 72.6 H Seg Neuts % (Manual) Seg Neutrophils # Seg Neutrophils # Man Monocytes # (Manual) ABG pH ABG pO2 ABG HCO3 ABG O2 Saturation ABG Base Excess ABG Hemoglobin Oxyhemoglobin Sodium Chloride 93.4 L Carbon Dioxide BUN 46 H Creatinine 2.6 H Glucose 125 H POC Glucose 147 H Hemoglobin A1c Calcium 10.5 H Phosphorus NT-Pro-B Natriuret Pep Albumin 07/16/19 07/16/19 07/16/19 12:17 17:55 18:06 WBC RBC Hgb Hct RDW Plt Count Lymph % (Auto) [place] % (Auto) [place] # Seg Neutrophils % Seg Neuts % (Manual) Seg Neutrophils # Seg Neutrophils # Man Monocytes # (Manual) ABG pH ABG pO2 ABG HCO3 ABG O2 Saturation ABG Base Excess ABG Hemoglobin Oxyhemoglobin Sodium Chloride Carbon Dioxide BUN Creatinine Glucose POC Glucose 222 H 129 H 121 H Hemoglobin A1c Calcium Phosphorus NT-Pro-B Natriuret Pep Albumin 07/17/19 07/17/19 07/17/19 00:31 03:58 03:58 WBC RBC Hgb Hct RDW 17.7 H Plt Count 647 H Lymph % (Auto) [place] % (Auto) 7.7 H [place] # Seg Neutrophils % Seg Neuts % (Manual) Seg Neutrophils # Seg Neutrophils # Man Monocytes # (Manual) ABG pH ABG pO2 ABG HCO3 ABG O2 Saturation ABG Base Excess ABG Hemoglobin Oxyhemoglobin Sodium 133 L Chloride 89.4 L Carbon Dioxide BUN 81 H Creatinine 3.5 H Glucose 139 H POC Glucose 195 H Hemoglobin A1c Calcium 10.8 H Phosphorus NT-Pro-B Natriuret Pep Albumin 07/17/19 07/17/19 07/17/19 05:50 13:06 17:50 WBC RBC Hgb Hct RDW Plt Count Lymph % (Auto) [place] % (Auto) [place] # Seg Neutrophils % Seg Neuts % (Manual) Seg Neutrophils # Seg Neutrophils # Man Monocytes # (Manual) ABG pH ABG pO2 ABG HCO3 ABG O2 Saturation ABG Base Excess ABG Hemoglobin Oxyhemoglobin Sodium Chloride Carbon Dioxide BUN Creatinine Glucose POC Glucose 137 H 176 H 154 H Hemoglobin A1c Calcium Phosphorus NT-Pro-B Natriuret Pep Albumin 07/17/19 07/18/19 07/18/19 23:10 05:15 05:15 WBC RBC Hgb Hct RDW 17.4 H Plt Count 645 H Lymph % (Auto) [place] % (Auto) [place] # Seg Neutrophils % 73.0 H Seg Neuts % (Manual) Seg Neutrophils # Seg Neutrophils # Man Monocytes # (Manual) ABG pH ABG pO2 ABG HCO3 ABG O2 Saturation ABG Base Excess ABG Hemoglobin Oxyhemoglobin Sodium Chloride 95.8 L Carbon Dioxide BUN 44 H Creatinine 2.3 H Glucose 164 H POC Glucose 186 H Hemoglobin A1c Calcium 10.6 H Phosphorus NT-Pro-B Natriuret Pep Albumin 07/18/19 07/18/19 07/18/19 05:55 10:24 11:57 WBC RBC Hgb Hct RDW Plt Count Lymph % (Auto) [place] % (Auto) [place] # Seg Neutrophils % Seg Neuts % (Manual) Seg Neutrophils # Seg Neutrophils # Man Monocytes # (Manual) ABG pH ABG pO2 ABG HCO3 ABG O2 Saturation ABG Base Excess ABG Hemoglobin Oxyhemoglobin Sodium Chloride Carbon Dioxide BUN Creatinine Glucose POC Glucose 146 H 161 H 236 H Hemoglobin A1c Calcium Phosphorus NT-Pro-B Natriuret Pep Albumin 07/18/19 07/18/19 07/19/19 18:15 18:34 00:56 WBC RBC Hgb Hct RDW Plt Count Lymph % (Auto) [place] % (Auto) [place] # Seg Neutrophils % Seg Neuts % (Manual) Seg Neutrophils # Seg Neutrophils # Man Monocytes # (Manual) ABG pH ABG pO2 ABG HCO3 ABG O2 Saturation ABG Base Excess ABG Hemoglobin Oxyhemoglobin Sodium Chloride Carbon Dioxide BUN Creatinine Glucose POC Glucose 110 H 109 H 245 H Hemoglobin A1c Calcium Phosphorus NT-Pro-B Natriuret Pep Albumin 07/19/19 07/19/19 07/19/19 05:31 05:31 06:11 WBC RBC 3.48 L Hgb Hct 30.1 L RDW 17.5 H Plt Count 599 H Lymph % (Auto) [place] % (Auto) [place] # Seg Neutrophils % Seg Neuts % (Manual) 80.0 H Seg Neutrophils # Seg Neutrophils # Man Monocytes # (Manual) ABG pH ABG pO2 ABG HCO3 ABG O2 Saturation ABG Base Excess ABG Hemoglobin Oxyhemoglobin Sodium Chloride 93.6 L Carbon Dioxide BUN 81 H Creatinine 3.7 H D Glucose 234 H POC Glucose 204 H Hemoglobin A1c Calcium 10.4 H Phosphorus NT-Pro-B Natriuret Pep Albumin 07/19/19 07/19/19 07/20/19 12:19 23:46 05:01 WBC RBC 3.13 L Hgb 8.9 L Hct 26.7 L RDW 17.4 H Plt Count 552 H Lymph % (Auto) [place] % (Auto) [place] # Seg Neutrophils % Seg Neuts % (Manual) Seg Neutrophils # Seg Neutrophils # Man Monocytes # (Manual) ABG pH ABG pO2 ABG HCO3 ABG O2 Saturation ABG Base Excess ABG Hemoglobin Oxyhemoglobin Sodium Chloride Carbon Dioxide BUN Creatinine Glucose POC Glucose 187 H 143 H Hemoglobin A1c Calcium Phosphorus NT-Pro-B Natriuret Pep Albumin 07/20/19 07/20/19 07/20/19 05:01 06:42 08:18 WBC RBC Hgb Hct RDW Plt Count Lymph % (Auto) [place] % (Auto) [place] # Seg Neutrophils % Seg Neuts % (Manual) Seg Neutrophils # Seg Neutrophils # Man Monocytes # (Manual) ABG pH ABG pO2 ABG HCO3 ABG O2 Saturation ABG Base Excess ABG Hemoglobin Oxyhemoglobin Sodium 134 L Chloride 88.4 L Carbon Dioxide 21 L BUN 110 H Creatinine 5.1 H Glucose 168 H POC Glucose 167 H 147 H Hemoglobin A1c Calcium Phosphorus NT-Pro-B Natriuret Pep Albumin 07/20/19 07/20/19 07/20/19 11:41 18:23 23:24 WBC RBC Hgb Hct RDW Plt Count Lymph % (Auto) [place] % (Auto) [place] # Seg Neutrophils % Seg Neuts % (Manual) Seg Neutrophils # Seg Neutrophils # Man Monocytes # (Manual) ABG pH ABG pO2 ABG HCO3 ABG O2 Saturation ABG Base Excess ABG Hemoglobin Oxyhemoglobin Sodium Chloride Carbon Dioxide BUN Creatinine Glucose POC Glucose 202 H 180 H 181 H Hemoglobin A1c Calcium Phosphorus NT-Pro-B Natriuret Pep Albumin 07/21/19 07/21/19 07/21/19 05:56 12:17 18:46 WBC RBC Hgb Hct RDW Plt Count Lymph % (Auto) [place] % (Auto) [place] # Seg Neutrophils % Seg Neuts % (Manual) Seg Neutrophils # Seg Neutrophils # Man Monocytes # (Manual) ABG pH ABG pO2 ABG HCO3 ABG O2 Saturation ABG Base Excess ABG Hemoglobin Oxyhemoglobin Sodium Chloride Carbon Dioxide BUN Creatinine Glucose POC Glucose 147 H 278 H 149 H Hemoglobin A1c Calcium Phosphorus NT-Pro-B Natriuret Pep Albumin 07/22/19 07/22/19 07/22/19 00:09 05:27 11:48 WBC RBC Hgb Hct RDW Plt Count Lymph % (Auto) [place] % (Auto) [place] # Seg Neutrophils % Seg Neuts % (Manual) Seg Neutrophils # Seg Neutrophils # Man Monocytes # (Manual) ABG pH ABG pO2 ABG HCO3 ABG O2 Saturation ABG Base Excess ABG Hemoglobin Oxyhemoglobin Sodium Chloride Carbon Dioxide BUN Creatinine Glucose POC Glucose 253 H 145 H 250 H Hemoglobin A1c Calcium Phosphorus NT-Pro-B Natriuret Pep Albumin 07/22/19 07/22/19 07/23/19 17:53 23:43 06:40 WBC RBC Hgb Hct RDW Plt Count Lymph % (Auto) [place] % (Auto) [place] # Seg Neutrophils % Seg Neuts % (Manual) Seg Neutrophils # Seg Neutrophils # Man Monocytes # (Manual) ABG pH ABG pO2 ABG HCO3 ABG O2 Saturation ABG Base Excess ABG Hemoglobin Oxyhemoglobin Sodium Chloride Carbon Dioxide BUN Creatinine Glucose POC Glucose 154 H 271 H 227 H Hemoglobin A1c Calcium Phosphorus NT-Pro-B Natriuret Pep Albumin 07/23/19 07/23/19 07/23/19 11:57 18:31 23:25 WBC RBC Hgb Hct RDW Plt Count Lymph % (Auto) [place] % (Auto) [place] # Seg Neutrophils % Seg Neuts % (Manual) Seg Neutrophils # Seg Neutrophils # Man Monocytes # (Manual) ABG pH ABG pO2 ABG HCO3 ABG O2 Saturation ABG Base Excess ABG Hemoglobin Oxyhemoglobin Sodium Chloride Carbon Dioxide BUN Creatinine Glucose POC Glucose 221 H 122 H 216 H Hemoglobin A1c Calcium Phosphorus NT-Pro-B Natriuret Pep Albumin 07/24/19 07/24/19 07/24/19 05:13 12:02 18:11 WBC RBC Hgb Hct RDW Plt Count Lymph % (Auto) [place] % (Auto) [place] # Seg Neutrophils % Seg Neuts % (Manual) Seg Neutrophils # Seg Neutrophils # Man Monocytes # (Manual) ABG pH ABG pO2 ABG HCO3 ABG O2 Saturation ABG Base Excess ABG Hemoglobin Oxyhemoglobin Sodium Chloride Carbon Dioxide BUN Creatinine Glucose POC Glucose 172 H 154 H 170 H Hemoglobin A1c Calcium Phosphorus NT-Pro-B Natriuret Pep Albumin 07/25/19 07/25/19 07/25/19 00:08 05:19 09:54 WBC RBC Hgb Hct RDW Plt Count Lymph % (Auto) [place] % (Auto) [place] # Seg Neutrophils % Seg Neuts % (Manual) Seg Neutrophils # Seg Neutrophils # Man Monocytes # (Manual) ABG pH ABG pO2 ABG HCO3 ABG O2 Saturation ABG Base Excess ABG Hemoglobin Oxyhemoglobin Sodium Chloride 96.2 L Carbon Dioxide BUN 55 H Creatinine 2.1 H Glucose 155 H POC Glucose 196 H 210 H Hemoglobin A1c Calcium Phosphorus NT-Pro-B Natriuret Pep Albumin 07/25/19 12:41 WBC RBC Hgb Hct RDW Plt Count Lymph % (Auto) [place] % (Auto) [place] # Seg Neutrophils % Seg Neuts % (Manual) Seg Neutrophils # Seg Neutrophils # Man Monocytes # (Manual) ABG pH ABG pO2 ABG HCO3 ABG O2 Saturation ABG Base Excess ABG Hemoglobin Oxyhemoglobin Sodium Chloride Carbon Dioxide BUN Creatinine Glucose POC Glucose 176 H Hemoglobin A1c Calcium Phosphorus NT-Pro-B Natriuret Pep Albumin Chest x-ray: image reviewed Allied health notes reviewed: RT
[2019-07-25] MEDS ORDERED: VANCOMYCIN 750 MG in SODIUM CHLORIDE 0.9% 500 ML 500 ML IV ONE (14:47)
--- NOTE | 2019-07-25 14:49 | Discharge Summary ---
Providers - Providers Date of Admission: 07/03/19 02:52 Date of discharge: 07/25/19 Attending physician: ALENA VALERIO 07/03/19 04:50 Consult to Physician [CONS] Routine Comment: Consulting Provider: RAVINDER ALLEN Physician Instructions: Reason For Exam: resp failure 07/03/19 06:36 Consult to Case Management [CONS] Routine Services Needed at Discharge: Home Health Services Notified:: Case management Saw the patient 07/03/19 08:28 Consult to Physician [CONS] Routine Comment: Consulting Provider: ANNABEL LEE Physician Instructions: Reason For Exam: ESRD needs dialysis. Pt known to you 07/04/19 12:37 Consult to Physician [CONS] Routine Comment: CLD OFC TO ADV OF CONSULT @0838 Consulting Provider: DIANA KHALIL Physician Instructions: Reason For Exam: sepsis 07/05/19 12:21 Consult to Wound/ET Nurse [CONS] Routine Reason For Exam: wound eval 07/05/19 16:25 Consult to Dietitian/Nutrition [CONS] Routine Physician Instructions: Reason For Exam: Reason for Consult: Write/Manage Tube Feeding 07/05/19 16:29 Consult to Dietitian/Nutrition [CONS] Routine Physician Instructions: Assess nutrtn needs, initiate, modify, manage TF Reason For Exam: Reason for Consult: Write/Manage Tube Feeding Reason for Consult: Write/Manage Tube Feeding 07/08/19 23:25 Occupational Therapy Evaluate and Treat [CONS] Routine Comment: Reason For Exam: contracture management Physical Therapy Evaluation and Treat [CONS] Routine Comment: Reason For Exam: deconditioning 07/19/19 13:59 Consult to Physician [CONS] Routine Comment: Consulting Provider: MARC FELDMAN Physician Instructions: Reason For Exam: trachesotomy, PEG placement 07/23/19 18:47 Consult to Wound/ET Nurse [CONS] Routine Reason For Exam: wound eval 07/25/19 13:35 Consult to Physician [CONS] Routine Comment: Re-consult Consulting Provider: OMAR FIGUEREDO Physician Instructions: Reason For Exam: Fever. 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
[2019-07-25] MEDS ORDERED: VANCOMYCIN PHARMACY TO DOSE IV SCH (15:00)
--- NOTE | 2019-07-25 15:19 | Progress Note ---
Assessment and Plan Acute hypoxic respiratory failure on mechanical ventilation Acute metabolic encephalopathy ESRD on HD HTN Sepsis Hx of seizures DM Type 2 on insulin Hypercalemia Hyponatremia Plan: - s/p HD Saturday, no HD today. - Assess dialysis needs daily - Epogen dosing for anemia management as needed - Currently Intubated on Vent - as per Pulmonology - Strict I&O - Renally dose meds - This pt undergoes outpatient HD at [facility] every MWF Robert Huggins MD [phone] Subjective Date of service: 07/25/19 Principal diagnosis: Acute hypoxemic resp failure; AMS; Severe Sepsis; ESRD; CHF; HTN; Seizure Interval history: Tolerated HD Saturday. Objective - Exam Narrative Exam: General appearance: well-developed, well-nourished EENT: ATNC, PERRL, mucous membranes dry Neck: no JVD, no carotid bruit Respiratory: Present: Clear to Ascultation Cardiology: regular, S1S2 Gastrointestinal: normoactive bowel sounds Integumentary: no rash, warm and dry Neurologic: other (intubated) Musculoskeletal: other (no edema in BLE) Psychiatric: other (intubated) - Vital Signs Vital signs: Vital Signs - 12hr 07/25/19 07/25/19 07/25/19 03:20 03:30 03:40 Temperature Pulse Rate 76 78 77 Pulse Rate [ From Monitor] Respiratory 14 15 13 Rate Blood Pressure 135/47 136/49 136/49 O2 Sat by Pulse 99 99 99 Oximetry O2 Sat by Pulse Oximetry [ Assessment] 07/25/19 07/25/19 07/25/19 03:44 03:50 04:00 Temperature 101.7 F H Pulse Rate 77 77 Pulse Rate [ 80 From Monitor] Respiratory 16 14 Rate Blood Pressure 126/49 134/49 O2 Sat by Pulse 99 99 Oximetry O2 Sat by Pulse Oximetry [ Assessment] 07/25/19 07/25/19 07/25/19 04:10 04:20 04:30 Temperature Pulse Rate 78 78 80 Pulse Rate [ From Monitor] Respiratory 15 12 12 Rate Blood Pressure 134/49 138/49 141/50 O2 Sat by Pulse 96 97 97 Oximetry O2 Sat by Pulse Oximetry [ Assessment] 07/25/19 07/25/19 07/25/19 04:40 04:43 04:50 Temperature Pulse Rate 80 79 Pulse Rate [ From Monitor] Respiratory 12 17 Rate Blood Pressure 141/50 138/47 O2 Sat by Pulse 97 99 Oximetry O2 Sat by Pulse 100 Oximetry [ Assessment] 07/25/19 07/25/19 07/25/19 05:00 05:10 05:20 Temperature Pulse Rate 81 82 82 Pulse Rate [ From Monitor] Respiratory 18 13 16 Rate Blood Pressure 137/49 137/49 135/51 O2 Sat by Pulse 99 99 99 Oximetry O2 Sat by Pulse Oximetry [ Assessment] 07/25/19 07/25/19 07/25/19 05:30 05:40 05:50 Temperature Pulse Rate 82 79 77 Pulse Rate [ From Monitor] Respiratory 17 11 L 15 Rate Blood Pressure 136/45 136/45 120/51 O2 Sat by Pulse 99 98 99 Oximetry O2 Sat by Pulse Oximetry [ Assessment] 07/25/19 07/25/19 07/25/19 06:00 06:10 06:20 Temperature Pulse Rate 78 81 82 Pulse Rate [ From Monitor] Respiratory 18 14 13 Rate Blood Pressure 120/49 120/49 131/54 O2 Sat by Pulse 99 99 99 Oximetry O2 Sat by Pulse Oximetry [ Assessment] 07/25/19 07/25/19 07/25/19 06:21 06:30 06:40 Temperature Pulse Rate 81 81 80 Pulse Rate [ From Monitor] Respiratory 13 16 Rate Blood Pressure 131/54 125/52 125/52 O2 Sat by Pulse 99 99 Oximetry O2 Sat by Pulse Oximetry [ Assessment] 07/25/19 07/25/19 07/25/19 06:50 07:00 07:10 Temperature Pulse Rate 80 80 80 Pulse Rate [ From Monitor] Respiratory 18 16 17 Rate Blood Pressure 128/52 126/51 126/51 O2 Sat by Pulse 99 99 99 Oximetry O2 Sat by Pulse Oximetry [ Assessment] 07/25/19 07/25/19 07/25/19 07:20 07:30 07:40 Temperature Pulse Rate 80 82 83 Pulse Rate [ From Monitor] Respiratory 17 18 15 Rate Blood Pressure 125/49 121/49 121/49 O2 Sat by Pulse 99 99 98 Oximetry O2 Sat by Pulse Oximetry [ Assessment] 07/25/19 07/25/19 07/25/19 07:50 08:00 08:10 Temperature 102.3 F H Pulse Rate 81 81 82 Pulse Rate [ 82 From Monitor] Respiratory 16 13 13 Rate Blood Pressure 117/47 114/49 123/51 O2 Sat by Pulse 98 99 99 Oximetry O2 Sat by Pulse Oximetry [ Assessment] 07/25/19 07/25/19 07/25/19 08:20 08:30 08:40 Temperature Pulse Rate 80 81 81 Pulse Rate [ From Monitor] Respiratory 14 17 14 Rate Blood Pressure 118/47 114/49 114/49 O2 Sat by Pulse 98 99 99 Oximetry O2 Sat by Pulse Oximetry [ Assessment] 07/25/19 07/25/19 07/25/19 08:50 09:00 09:10 Temperature Pulse Rate 82 84 85 Pulse Rate [ From Monitor] Respiratory 17 17 16 Rate Blood Pressure 120/47 119/48 119/48 O2 Sat by Pulse 98 98 98 Oximetry O2 Sat by Pulse Oximetry [ Assessment] 07/25/19 07/25/19 07/25/19 09:20 09:30 09:40 Temperature Pulse Rate 86 87 87 Pulse Rate [ From Monitor] Respiratory 15 15 16 Rate Blood Pressure 123/49 118/47 119/48 O2 Sat by Pulse 98 98 98 Oximetry O2 Sat by Pulse Oximetry [ Assessment] 07/25/19 07/25/19 07/25/19 09:50 10:00 10:10 Temperature Pulse Rate 87 84 82 Pulse Rate [ From Monitor] Respiratory 14 16 20 Rate Blood Pressure 109/46 117/45 117/45 O2 Sat by Pulse 99 99 99 Oximetry O2 Sat by Pulse Oximetry [ Assessment] 07/25/19 07/25/19 07/25/19 10:20 10:30 10:40 Temperature Pulse Rate 83 80 78 Pulse Rate [ From Monitor] Respiratory 17 14 15 Rate Blood Pressure 117/45 115/48 115/48 O2 Sat by Pulse 99 99 99 Oximetry O2 Sat by Pulse Oximetry [ Assessment] 07/25/19 07/25/19 07/25/19 10:50 10:58 11:00 Temperature Pulse Rate 78 76 76 Pulse Rate [ From Monitor] Respiratory 16 12 Rate Blood Pressure 115/48 121/48 121/48 O2 Sat by Pulse 99 99 99 Oximetry O2 Sat by Pulse Oximetry [ Assessment] 07/25/19 07/25/19 07/25/19 11:03 11:10 11:20 Temperature Pulse Rate 76 73 Pulse Rate [ From Monitor] Respiratory 15 11 L Rate Blood Pressure 121/48 121/48 O2 Sat by Pulse 99 100 Oximetry O2 Sat by Pulse 100 Oximetry [ Assessment] 07/25/19 07/25/19 07/25/19 11:30 11:40 11:50 Temperature Pulse Rate 74 71 71 Pulse Rate [ From Monitor] Respiratory 14 14 11 L Rate Blood Pressure 119/50 119/50 119/50 O2 Sat by Pulse 100 100 100 Oximetry O2 Sat by Pulse Oximetry [ Assessment] 07/25/19 07/25/19 07/25/19 12:00 12:10 12:20 Temperature 99.8 F H Pulse Rate 72 69 68 Pulse Rate [ 72 From Monitor] Respiratory 10 L 9 L 13 Rate Blood Pressure 123/57 119/50 119/50 O2 Sat by Pulse 100 100 100 Oximetry O2 Sat by Pulse Oximetry [ Assessment] 07/25/19 07/25/19 07/25/19 12:30 12:40 12:50 Temperature Pulse Rate 70 68 70 Pulse Rate [ From Monitor] Respiratory 13 13 10 L Rate Blood Pressure 128/50 123/57 123/57 O2 Sat by Pulse 100 100 100 Oximetry O2 Sat by Pulse Oximetry [ Assessment] 07/25/19 07/25/19 07/25/19 13:00 13:10 13:20 Temperature Pulse Rate 68 67 65 Pulse Rate [ From Monitor] Respiratory 13 13 10 L Rate Blood Pressure 133/53 133/53 133/53 O2 Sat by Pulse 100 100 100 Oximetry O2 Sat by Pulse Oximetry [ Assessment] 07/25/19 07/25/19 07/25/19 13:30 13:40 13:50 Temperature Pulse Rate 66 65 64 Pulse Rate [ From Monitor] Respiratory 14 12 11 L Rate Blood Pressure 140/53 140/53 140/53 O2 Sat by Pulse 100 100 100 Oximetry O2 Sat by Pulse Oximetry [ Assessment] 07/25/19 07/25/19 14:00 14:10 Temperature Pulse Rate 64 64 Pulse Rate [ From Monitor] Respiratory 13 11 L Rate Blood Pressure 127/52 127/52 O2 Sat by Pulse 100 100 Oximetry O2 Sat by Pulse Oximetry [ Assessment] - Lab 07/20/19 05:01 07/25/19 09:54 Most recent lab results ABG pH 7.425 pH Units (7.350-7.450) 07/13/19 05:50 ABG pCO2 42.9 mm Hg 07/13/19 05:50 ABG pO2 110.8 mm Hg (80.0-90.0) H 07/13/19 05:50 ABG HCO3 27.5 mmol/L (20.0-26.0) H 07/13/19 05:50 ABG O2 Saturation 98.0 % (95.0-99.0) 07/13/19 05:50 Calcium 10.2 mg/dL (8.4-10.2) 07/25/19 09:54 Phosphorus 2.60 mg/dL (2.5-4.5) D 07/09/19 04:29 Medications & Allergies - Medications Allergies/Adverse Reactions: Allergies No Known Allergies Allergy (Verified 07/03/19 10:58) Home Medications: Home Medications Medication Instructions Recorded Confirmed Last Taken Type Vit B Comp No.3/Folic/C/Biotin 1 each PO DAILY 06/24/19 07/04/19 Unknown History [Nephro-Umu Rx Tablet] ALBUTEROL NEB's [Proventil 0.083% 2.5 mg IH TIDRT #30 nebu 06/30/19 07/04/19 Unknown Rx NEBS] Sevelamer Carbonate [Renvela] 800 mg PO TIDWM tablet 06/30/19 07/04/19 Unknown Rx Cinacalcet [Sensipar] 30 mg PO QDAY tablet 07/25/19 Unknown Rx Dextrose 50% in Water [D50W (25GM) 0 ml IV Q30MIN PRN syringe 07/25/19 Unknown Rx Syringe] Docusate Sodium [Colace ORAL LIQ] 100 mg FEEDTUBE BID oral.liqd 07/25/19 Unknown Rx Epoetin Jj 10,000 Unit [Procrit] 10,000 unit SUB-Q FEDE vial 07/25/19 Unknown Rx Famotidine [Pepcid] 20 mg PO DAILY tablet 07/25/19 Unknown Rx Insulin Glargine [Lantus VIAL] 20 units SUB-Q DAILY units 07/25/19 Unknown Rx Lipase/Protease/Amylase [Pancreaze 1 each FEEDTUBE PRN PRN capsule 07/25/[address] 10,500 Unit] Min Oil/Petrolatum [Artificial 1 applic OU Q4HR PRN tube 07/25/19 Unknown Rx Tears Ophth Oint] Pantoprazole [Protonix INJ] 40 mg IV BID vial 07/25/19 Unknown Rx Petrolatum,White [Vaseline Lip 1 applic TP Q2HR PRN tube 07/25/19 Unknown Rx Therapy] VALPROIC ACID Liq [DepaKENE Liq] 500 mg FEEDTUBE BID oral.liqd 07/25/19 Unknown Rx amLODIPine 10 mg PO QDAY tablet 07/25/19 Unknown Rx carvediloL [Coreg] 25 mg PO BID tablet 07/25/19 Unknown Rx hydrALAZINE [Apresoline TAB] 50 mg PO Q8HR tablet 07/25/19 Unknown Rx risperiDONE [RisperDAL] 0.5 mg PO BID tablet 07/25/19 Unknown Rx Active Medications: Generic Name Dose Route Start Last Admin Trade Name Freq PRN Reason Stop Dose Admin Acetaminophen 650 mg 07/25/19 08:02 07/25/19 08:24 Tylenol FEEDTUBE 650 mg Q6H PRN Administration Pain, Mild (1-3) Albumin Human 25 gm 07/06/19 13:42 07/24/19 10:13 Alburx 25% (Albumin) IV 25 gm FEDE PRN Administration Hypotension Amlodipine Besylate 10 mg 07/17/19 13:00 07/25/19 09:30 Amlodipine PO Not Given QDAY YANG Lipase/Protease/Amylase 1 each 07/05/19 16:27 Pancreazjohn Knapp 10,500 Unit FEEDTUBE PRN PRN For Clogged Feeding Tube Carvedilol 25 mg 07/17/19 22:00 07/25/19 09:00 Coreg PO 25 mg BID YANG Administration Cinacalcet 30 mg 07/18/19 10:00 07/25/19 09:00 Sensipar PO 30 mg QDAY YANG Administration Dextrose 0 ml 07/03/19 04:34 D50w (25gm) Syringe IV Q30MIN PRN Hypoglycemia Protocol Docusate Sodium 100 mg 07/15/19 10:00 07/25/19 09:00 Colace FEEDTUBE 100 mg BID YANG Administration Epoetin Jj 10,000 unit 07/22/19 13:00 07/24/19 12:21 Procrit SUB-Q 10,000 unit FEDE YANG Administration Famotidine 20 mg 07/07/19 10:00 07/25/19 09:00 Pepcid PO 20 mg DAILY YANG Administration Heparin Sodium (Porcine) 5,000 unit 07/03/19 10:00 07/25/19 09:00 Heparin SUB-Q 5,000 unit Q12HR YANG Administration Hydralazine HCl 50 mg 07/17/19 14:00 07/25/19 06:21 Apresoline PO 50 mg Q8HR YANG Administration Hydrophilic Ointment 1 applic 07/03/19 00:53 Vaseline Lip Therapy TP Q2HR PRN Dry Lips Fentanyl Citrate 2,000 mcg in 100 mls @ 2.608 mls/hr 07/03/19 01:00 07/04/19 18:10 Fentanyl Drip Premix IV Infused TITR YANG Titration Protocol 1 MCG/KG/HR Sodium Chloride 100 mls @ 999 mls/hr 07/05/19 13:41 Nacl 0.9% IV FEDE PRN Hypotension Sodium Chloride 1,000 mls @ 50 mls/hr 07/24/19 12:45 07/25/19 02:30 Nacl 0.9% 1000 Ml IV 50 mls/hr DIRECT YANG Administration Vancomycin HCl 750 mg/ Sodium 515 mls @ 333 mls/hr 07/25/19 14:47 Chloride IV 07/25/19 16:19 ONCE ONE Protocol Cefepime HCl 1 gm in 100 mls @ 200 mls/hr 07/25/19 18:00 Cefepime/Ns 1 Gm/100 Ml IV QPM [facility] Protocol Insulin Glargine 20 units 07/24/19 10:00 07/25/19 09:00 Lantus SUB-Q 20 units DAILY YANG Administration Insulin Human Lispro 0 unit 07/03/19 06:00 07/25/19 13:07 Humalog SUB-Q 3 unit Q6HR YANG Administration Protocol Multi-Ingred Cream/Lotion/Oil/Oint 1 applic 07/03/19 00:53 Artificial Tears Ophth Oint OU Q4HR PRN Dry Eye(s) Pantoprazole Sodium 40 mg 07/24/19 22:00 07/25/19 09:00 Protonix IV 40 mg BID YANG Administration Risperidone 0.5 mg 07/20/19 22:00 07/25/19 09:00 Risperdal PO 0.5 mg BID YANG Administration Simple Syrup 15 ml 07/05/19 16:27 Simple Syrup FEEDTUBE PRN PRN Hypoglycemia Simple Syrup 30 ml 07/05/19 16:27 Simple Syrup FEEDTUBE PRN PRN Hypoglycemia Sodium Bicarbonate 325 mg 07/05/19 16:27 Sodium Bicarbonate FEEDTUBE PRN PRN For Clogged Feeding Tube Sodium Chloride 10 ml 07/03/19 10:00 07/25/19 10:47 Sodium Chloride Flush Syringe 10 Ml IV Not Given BID YANG Sodium Chloride 10 ml 07/03/19 04:34 07/05/19 10:42 Sodium Chloride Flush Syringe 10 Ml IV 10 ml PRN PRN Administration LINE FLUSH Valproic Acid 500 mg 07/17/19 22:00 07/25/19 09:00 Depakene Liq FEEDTUBE 500 mg BID YANG Administration
[2019-07-25] MEDS ORDERED: VANCOMYCIN/NS 1 GM/250 ML 1 GM/250 ML BAG IV ONE (16:00)
[2019-07-25 17:33] VITALS: BP 142/52
[2019-07-25] MEDS ORDERED: CEFEPIME/NS 1 GM/100 ML 1 GM/100 ML BAG IV SCH (18:00)
== END 2019-07-25 17:30 | DRG 4 ==
LOC: ED 00:27 → CC1 02:52
PROVIDERS: ADMIT Internal Medicine Geriatric Medicine; ATTEND Internal Medicine
PROC: 4A033R1 Measurement of Arterial Saturation, Peripheral, Percutaneous Approach (ICD-10-PCS; 2019-07-03)
PROC: 5A1D70Z Performance of Urinary Filtration, Intermittent, Less than 6 Hours Per Day (ICD-10-PCS; 2019-07-03)
PROC: 5A1D70Z Performance of Urinary Filtration, Intermittent, Less than 6 Hours Per Day (ICD-10-PCS; 2019-07-04)
PROC: 5A1D70Z Performance of Urinary Filtration, Intermittent, Less than 6 Hours Per Day (ICD-10-PCS; 2019-07-06)
PROC: 5A1D70Z Performance of Urinary Filtration, Intermittent, Less than 6 Hours Per Day (ICD-10-PCS; 2019-07-08)
PROC: 5A1D70Z Performance of Urinary Filtration, Intermittent, Less than 6 Hours Per Day (ICD-10-PCS; 2019-07-10)
PROC: 5A1D70Z Performance of Urinary Filtration, Intermittent, Less than 6 Hours Per Day (ICD-10-PCS; 2019-07-13)
PROC: 5A1955Z Respiratory Ventilation, Greater than 96 Consecutive Hours (ICD-10-PCS; principal; 2019-07-14)
PROC: 0B113F4 Bypass Trachea to Cutaneous with Tracheostomy Device, Percutaneous Approach (ICD-10-PCS; 2019-07-14)
PROC: 5A1D70Z Performance of Urinary Filtration, Intermittent, Less than 6 Hours Per Day (ICD-10-PCS; 2019-07-15)
PROC: 5A1D70Z Performance of Urinary Filtration, Intermittent, Less than 6 Hours Per Day (ICD-10-PCS; 2019-07-17)
PROC: 5A1D70Z Performance of Urinary Filtration, Intermittent, Less than 6 Hours Per Day (ICD-10-PCS; 2019-07-20)
PROC: 5A1D70Z Performance of Urinary Filtration, Intermittent, Less than 6 Hours Per Day (ICD-10-PCS; 2019-07-22)
PROC: 0BH17EZ Insertion of Endotracheal Airway into Trachea, Via Natural or Artificial Opening (ICD-10-PCS; 2019-07-24)
PROC: 5A1D70Z Performance of Urinary Filtration, Intermittent, Less than 6 Hours Per Day (ICD-10-PCS; 2019-07-24)
PROC: 0BJ08ZZ Inspection of Tracheobronchial Tree, Via Natural or Artificial Opening Endoscopic (ICD-10-PCS; 2019-07-24)
PROC: 0DH63UZ Insertion of Feeding Device into Stomach, Percutaneous Approach (ICD-10-PCS; 2019-07-24)
DX: A41.9 Sepsis, unspecified organism (principal); J96.01 Acute respiratory failure with hypoxia; N18.6 End stage renal disease; G92 Toxic encephalopathy; I13.2 Hypertensive heart and chronic kidney disease with heart failure and with stage 5 chronic kidney disease, or end stage renal disease; E87.1 Hypo-osmolality and hyponatremia; G40.909 Epilepsy, unspecified, not intractable, without status epilepticus; D63.1 Anemia in chronic kidney disease; R13.12 Dysphagia, oropharyngeal phase; E78.5 Hyperlipidemia, unspecified; F03.90 Unspecified dementia, unspecified severity, without behavioral disturbance, psychotic disturbance, mood disturbance, and anxiety; F32.9 Major depressive disorder, single episode, unspecified; I16.0 Hypertensive urgency; R79.89 Other specified abnormal findings of blood chemistry; I50.9 Heart failure, unspecified; E11.22 Type 2 diabetes mellitus with diabetic chronic kidney disease; I95.9 Hypotension, unspecified; R65.20 Severe sepsis without septic shock; L89.159 Pressure ulcer of sacral region, unspecified stage; E83.52 Hypercalcemia; Z87.01 Personal history of pneumonia (recurrent); Z87.440 Personal history of urinary (tract) infections; Z98.51 Tubal ligation status; Z99.2 Dependence on renal dialysis; Z79.4 Long term (current) use of insulin
CPT/HCPCS: 36415; 36600; 70450; 71045; 74018; 74176; 80048; 80053; 80202; 81001; 82140; 82803; 82962; 83036; 83880; 84100; 84295; 84443; 85007; 85025; 85027; 85610; 87040; 87070; 87205; 87400; 93005; 93010; 94002; 94003; G0378; C9113; J0692; J0885; J1644; J1815; J2185; J2250; J2370; J2704; J2765; J3010; J3370; J7030; J7040; P9047